=== PATIENT | male | born 1980 | race American Indian/Alaskan Native ===

== ENCOUNTER 2017-08-04 02:48 | Emergency (ER) | payer OTHER ==
[2017-08-04 04:23] LABS: Basophils % (Auto) 0.8 % (0.0-1.8); Eosinophils % (Auto) 5.6 % (0.0-4.3); Hemoglobin 15.1 gm/dl (11.8-15.2); Mean Corpuscular HGB Conc 34 % (32-34); Mean Corpuscular Hemoglobin 32 pg (28-32); Mean Corpuscular Volume 94 fl (84-94); Platelet Count 224 K/mm3 (140-440); Red Cell Distribution Width 14.3 % (13.2-15.2); White Blood Count 5.3 K/mm3 (4.5-11.0)
[2017-08-04 04:45] LABS: Anion Gap 15 mmol/L; BUN/Creatinine Ratio 18; Blood Urea Nitrogen 16 mg/dL (9-20); Calcium 8.9 mg/dL (8.4-10.2); Carbon Dioxide 27 mmol/L (22-30); Chloride 103.6 mmol/L (98-107); Glucose 111 mg/dL (75-100); Potassium 3.7 mmol/L (3.6-5.0); Sodium 142 mmol/L (137-145)
--- NOTE | 2017-08-04 05:45 | Cat Scan Report ---
FINAL REPORT EXAM: CT HEAD/BRAIN WO CON HISTORY: HEADACHE TECHNIQUE: Routine axial imaging was obtained of the brain without IV contrast. There are no previous studies available for comparison. FINDINGS: The ventricular system is appropriate in size and is symmetric. There is no evidence of acute stroke or hemorrhage. The basal cisterns appear normal. The visualized sinuses are clear. The mastoid air cells are well pneumatized IMPRESSION: Within normal limits.
[2017-08-04] MEDS ORDERED: CATAPRES PO ONE (10:17)
[2017-08-04] MEDS ORDERED: TORADOL IM ONE (10:26)
[2017-08-04] MEDS ORDERED: NORVASC PO ONE (11:17)
--- NOTE | 2017-08-04 11:20 | Emergency Department Report ---
ED Headache HPI - General Chief Complaint: Dizziness Stated Complaint: HTN Time Seen by Provider: 08/04/17 10:15 Source: patient, old records (no previous record) Exam Limitations: no limitations - History of Present Illness Initial Comments: 37-year-old male with a past medical history of hypertension presents to the hospital complaining of dizziness and headache 2 days. Patient complains of a frontal headache that is aching in nature. Pain is moderate in intensity without aggravating or alleviating factors. Positive nausea without vomiting, light sensitivity, focal weakness or numbness. Patient has not taken his blood pressure medication in 3 months because "he does not have a doctor "patient does however have insurance but states he doesn't know which doctors are in his network. I informed patient that he can call his insurance company for help to find a doctor. Patient complains of lightheadedness 2 days with the headache. He states he has been on amlodipine and the medication starts with a C in the past. Denies chest pain, shortness of breath, or abdominal pain. Allergies/Adverse Reactions: Allergies No Known Allergies Allergy (Unverified 08/04/17 03:52) Home Medications: Ambulatory Orders Ibuprofen [Motrin] 800 mg PO Q8HR PRN #30 tablet 08/04/17 amLODIPine mg PO DAILY 08/04/17 amLODIPine [Norvasc] 5 mg PO DAILY #30 tab 08/04/17 traMADol [Ultram 50 MG tab] 50 mg PO Q6HR PRN #20 tablet 08/04/17 ED Review of Systems ROS: Stated complaint: HTN Other details as noted in HPI Comment: All other systems reviewed and negative Other: Constitutional: No fevers chills Eyes: No eye pain visual changes ENT: No ear pain or throat pain Neck: Denies pain Respiratory: Denies cough wheezing shortness of breath Cardiovascular: Denies chest pain, palpitations, syncope GI: Denies abdominal pain, vomiting,. Patient reports 2 loose stools daily for the last 3 days : Denies dysuria Musculoskeletal: Denies back pain, joint swelling Skin: Denies rash, lesions, erythema Neurologic: Denies numbness, weakness Psychiatric: Denies suicidal ideation, hallucinations ED Past Medical Hx - Past Medical History Hx Hypertension: Yes - Surgical History Past Surgical History?: No - Social History Smoking Status: Current Every Day Smoker Substance Use Type: None - Medications Home Medications: Home Medications Medication Instructions Recorded Confirmed Last Taken Type Ibuprofen [Motrin] 800 mg PO Q8HR PRN #30 tablet 08/04/17 Unknown Rx amLODIPine mg PO DAILY 08/04/17 Unknown History amLODIPine [Norvasc] 5 mg PO DAILY #30 tab 08/04/17 Unknown Rx traMADol [Ultram 50 MG tab] 50 mg PO Q6HR PRN #20 tablet 08/04/17 Unknown Rx ED Physical Exam - General Limitations: No Limitations - Other Other exam information: General: No limitations, patient is alert in no acute distress Head exam: Atraumatic, normocephalic Eyes exam: Normal appearance, pupils equal reactive to light, extraocular movements intact ENT: Moist mucous membrane, normal oropharynx Neck exam: Normal inspection, full range of motion, no meningismus nontender Respiratory exam: Clear to auscultation bilateral, no wheezes, rales, crackles Cardiovascular: Normal rate and rhythm, normal heart sounds Abdomen: Soft, nondistended, and nontender, with normal bowel sounds, no rebound, or guarding Extremity: Full range of motion normal inspection no deformity Back: Normal Inspection, full range of motion, no tenderness Neurologic: Alert, oriented x3, cranial nerves intact, no motor or sensory deficit Psychiatric: normal affect, normal mood Skin: Warm, dry, intact ED Course Vital Signs 08/04/17 08/04/17 08/04/17 03:46 08:00 10:16 Temperature 98.2 F 98.4 F Pulse Rate 75 70 67 Respiratory 16 19 Rate Blood Pressure 160/108 162/105 147/110 Blood Pressure [Right] O2 Sat by Pulse 100 97 Oximetry 08/04/17 08/04/17 11:00 12:15 Temperature Pulse Rate 71 67 Respiratory 19 18 Rate Blood Pressure 136/97 Blood Pressure 142/97 [Right] O2 Sat by Pulse 92 99 Oximetry - Reevaluation(s) Reevaluation #1: 08/04/17 11:19 Prior to receiving clonidine patient's blood pressure improved. Norvasc ordered instead. Toradol order for pain. Patient was not orthostatic and therefore IV fluids not initiated Reevaluation #2: 08/04/17 12:25 Headache improved after Toradol. ED Medical Decision Making - Lab Data Result diagrams: 08/04/17 04:00 08/04/17 04:00 Lab Results 1208/04/17 08/04/17 Range/Units 04:00 04:00 10:32 WBC 5.3 (4.5-11.0) K/mm3 RBC 4.80 (3.65-5.03) M/mm3 Hgb 15.1 (11.8-15.2) gm/dl Hct 45.0 (35.5-45.6) % MCV 94 (84-94) fl MCH 32 (28-32) pg MCHC 34 (32-34) % RDW 14.3 (13.2-15.2) % Plt Count 224 (140-440) K/mm3 Lymph % (Auto) 27.7 (13.4-35.0) % [place] % (Auto) 10.1 H (0.0-7.3) % Eos % (Auto) 5.6 H (0.0-4.3) % Baso % (Auto) 0.8 (0.0-1.8) % Lymph # 1.5 (1.2-5.4) K/mm3 [place] # 0.5 (0.0-0.8) K/mm3 Eos # 0.3 (0.0-0.4) K/mm3 Baso # 0.0 (0.0-0.1) K/mm3 Seg Neutrophils % 55.8 (40.0-70.0) % Seg Neutrophils # 2.9 (1.8-7.7) K/mm3 Sodium 142 (137-145) mmol/L Potassium 3.7 (3.6-5.0) mmol/L Chloride 103.6 (98-107) mmol/L Carbon Dioxide 27 (22-30) mmol/L Anion Gap 15 mmol/L BUN 16 (9-20) mg/dL Creatinine 0.9 (0.8-1.5) mg/dL Estimated GFR > 60 ml/min BUN/Creatinine Ratio 18 % Glucose 111 H (75-100) mg/dL Calcium 8.9 (8.4-10.2) mg/dL Troponin T < 0.010 (0.00-0.029) ng/mL - EKG Data -: EKG Interpreted by Mi EKG shows normal: sinus rhythm, axis (40), QRS complexes (77), ST-T waves ( anterior lateral T-wave inversions, inferior T wave inversion) Rate: normal (65) - EKG Data When compared to previous EKG there are: previous EKG unavailable - Radiology Data Radiology results: report reviewed (ct head: unremarkable) - Medical Decision Making Patient does not have any chest pain or shortness of breath. Troponin was added given abnormal EKG and is negative. Patient's blood pressure improved in the ED without BP medication. Patient's CT head and lab work was unremarkable. Patient was encouraged to follow-up with her primary care doctor and options will be provided. I stressed the importance of taking blood pressure medication and follow up with primary care physician to determine if his medications need adjustment. Patient will also need outpatient cardiology follow-up regarding abnormal EKG however, does not appear to be an acute coronary syndrome at this time - Differential Diagnosis ICH, mass, hypertensive emergency/urgency, noncompliance, dehydration, anem Critical Care Time: No Critical care attestation.: If time is entered above; I have spent that time in minutes in the direct care of this critically ill patient, excluding procedure time. ED Disposition Clinical Impression: Uncontrolled hypersomnia, Noncompliance with medication regimen, Headache, Lightheaded, EKG abnormalities Disposition: DC- TO HOME OR SELFCARE Is pt being admited?: No Does the pt Need Aspirin: No Condition: Stable Instructions: Hypertension (ED), Acute Headache (ED) Additional Instructions: Take blood pressure medicine as prescribed and pain medication as needed. Follow-up with the clinic or doctor provided for further treatment of your high blood pressure and symptoms. Return if symptoms worsen as indicated by a discharge instructions. 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 Prescriptions: amLODIPine [Norvasc] 5 mg PO DAILY #30 tab Ibuprofen [Motrin] 800 mg PO Q8HR PRN #30 tablet PRN Reason: Pain traMADol [Ultram 50 MG tab] 50 mg PO Q6HR PRN #20 tablet PRN Reason: Pain Referrals: [facility] [Provider Group] - 3-5 Days ARNAUD BUTTERFIELD MD [Staff Physician] - 3-5 Days AMNA GRANT MD [Staff Physician] - 3-5 Days (Transit Operations Supervisor) Time of Disposition: 12:29
[2017-08-04 12:15] VITALS: BP 142/97
== END 2017-08-04 13:06 | disposition home or self-care (01) ==
LOC: ED 02:48
DX: G47.10 Hypersomnia, unspecified (principal); R42 Dizziness and giddiness; R94.31 Abnormal electrocardiogram [ECG] [EKG]; I10 Essential (primary) hypertension; F17.200 Nicotine dependence, unspecified, uncomplicated; Z91.14 Patient's other noncompliance with medication regimen
CPT/HCPCS: 36415; 70450; 80048; 84484; 85025; 93005; 93010; 96372; 99284; J1885

== ENCOUNTER 2018-06-16 17:58 | Inpatient (IN) | payer SELFPAY ==
[2018-06-16] MEDS ORDERED: DUONEB *Not for PRN Use IH ONE ×2 (18:14→20:48)
[2018-06-16 19:01] LABS: Platelet Count TNR K/mm3 (140-440)
[2018-06-16 19:04] LABS: Mean Corpuscular Volume TNR fl (84-94)
[2018-06-16 19:06] LABS: Hematocrit TNR % (35.5-45.6); Hemoglobin TNR gm/dl (11.8-15.2); Lymphocytes % (Auto) TNR % (13.4-35.0); Mean Corpuscular HGB Conc TNR % (32-34); Mean Corpuscular Hemoglobin TNR pg (28-32); Mean Platelet Volume TNR fl (6-12); Monocytes % (Auto) TNR % (0.0-7.3); Red Blood Count TNR M/mm3 (3.65-5.03); Red Cell Distribution Width TNR % (13.2-15.2)
[2018-06-16 19:07] LABS: Basophils # (Auto) TNR K/mm3 (0.0-0.1); Basophils % (Auto) TNR % (0.0-1.8); Eosinophils # (Auto) TNR K/mm3 (0.0-0.4); Eosinophils % (Auto) TNR % (0.0-4.3); Lymphocytes # (Auto) TNR K/mm3 (1.2-5.4); Monocytes # (Auto) TNR K/mm3 (0.0-0.8)
[2018-06-16 19:09] LABS: Total Cells Counted TNR
[2018-06-16 19:11] LABS: Band Neutrophils # (Manual) TNR K/mm3; Basophils % (Manual) TNR % (0.0-1.8); Eosinophils % (Manual) TNR % (0.0-4.3); Hypersegmented Neutrophils TNR; Hypersegmented Polys TNR; Monocytes % (Manual) TNR % (0.0-7.3); Myelocytes # (Manual) TNR K/mm3; Nucleated Red Blood Cells TNR % (0.0-0.9); Platelet Estimate TNR; Promyelocytes # (Manual) TNR K/mm3; Smudge Cells TNR
[2018-06-16 19:12] LABS: Acanthocytes TNR; Anisocytosis TNR; Basophilic Stippling TNR; Bite Cells TNR; Cabot Rings TNR; Dimorphic RBC TNR; Giant Platelets TNR; Helmet Cells TNR; Hgb C Crystals TNR; Howell-Jolly Bodies TNR; Hypochromasia TNR; Large Platelets TNR; Macrocytosis TNR; Ovalocytes TNR; Pappenheimer Bodies TNR; Platelet Clumps TNR; Platelet Morphology TNR; Platelet Satelitosis TNR; Poikilocytosis TNR; RBC Morphology TNR; Schistocytes TNR; Sickle Cells TNR; Spherocytes TNR; Stomatocytes TNR; Target Cells TNR; Tear Drop Cells TNR
[2018-06-16 19:13] LABS: Auer Rods TNR; Burr Cells TNR; Crenated RBC TNR; Dohle Bodies TNR; Rouleaux TNR; Toxic Granulation TNR; Toxic Vacuolation TNR
[2018-06-16 19:15] LABS: BUN/Creatinine Ratio 16; Blood Urea Nitrogen 14 mg/dL (9-20); Calcium 8.7 mg/dL (8.4-10.2); Hemolysis Index 10
[2018-06-16 19:34] LABS: Basophils % (Auto) 0.2 % (0.0-1.8); Hematocrit 39.2 % (35.5-45.6); Hemoglobin 13.6 gm/dl (11.8-15.2); Lymphocytes # (Auto) 0.9 K/mm3 (1.2-5.4); Lymphocytes % (Auto) 8.9 % (13.4-35.0); Mean Corpuscular HGB Conc 35 % (32-34); Mean Corpuscular Hemoglobin 33 pg (28-32); Mean Corpuscular Volume 96 fl (84-94); Monocytes # (Auto) 1.2 K/mm3 (0.0-0.8); Monocytes % (Auto) 11.3 % (0.0-7.3); Platelet Count 162 K/mm3 (140-440); Red Blood Count 4.08 M/mm3 (3.65-5.03); Red Cell Distribution Width 15.6 % (13.2-15.2)
--- NOTE | 2018-06-16 19:53 | XRay Report ---
FINAL REPORT EXAM: XR CHEST ROUTINE 2V HISTORY: Shortness of breath TECHNIQUE: Frontal and lateral views of the chest Comparison: None FINDINGS: There appear to be bilateral areas of patchy pulmonary consolidation. This is most marked in the left lung base. There is no evidence of pneumothorax or pleural fluid collection. The cardiac silhouette is enlarged. The thoracic aorta is tortuous. The bony structures are unremarkable. IMPRESSION: 1. Appearance of bilateral patchy areas of pulmonary consolidation that is most marked in the left lung base.. If further imaging is required, CT chest may be helpful. 2. Enlarged cardiac silhouette.
[2018-06-16] MEDS ORDERED: ASPIRIN PO ONE (20:32)
[2018-06-16] MEDS ORDERED: K-DUR PO ONE (20:32)
[2018-06-16] MEDS ORDERED: NITRO-BID 2% TP ONE (20:47)
[2018-06-16] MEDS ORDERED: SOLU-Medrol IV ONE (20:48)
--- NOTE | 2018-06-16 20:57 | Emergency Department Report ---
ED Shortness of Breath HPI - General Chief Complaint: Dyspnea/Respdistress Stated Complaint: CHEST PAIN/MAYTE Time Seen by Provider: 06/16/18 20:31 Source: patient, old records reviewed Mode of arrival: Ambulatory Limitations: No Limitations - History of Present Illness Initial Comments: 38-year-old male with a past medical history of hypertension presents to the hospital complaints of shortness of breath and cough 1 day. Patient states that cough is occasionally productive of blood-tinged sputum. He presented to the ED with wheezing and rhonchi with shortness of breath. Complains of pain to his right abdomen/flank and mild chest pain with coughing only. He denies edema, recent travel or sick contacts, recent incarceration, fever, or chills. Patient smokes Black and mild. He's been noncompliant with his blood pressure medication for 2-3 months because he is going "the natural route". He has never had a stress test. His father has CAD and 42-year-old brother is currently in the hospital for [place]. Patient did not receive a flu shot. Patient received a DuoNeb prior to my evaluation with improvement in shortness of breath and wheezing. - Related Data Home Medications Medication Instructions Recorded Confirmed Last Taken amLODIPine mg PO DAILY 08/04/17 Unknown Previous Rx's Medication Instructions Recorded Last Taken Type Ibuprofen [Motrin] 800 mg PO Q8HR PRN #30 tablet 08/04/17 Unknown Rx amLODIPine [Norvasc] 5 mg PO DAILY #30 tab 08/04/17 Unknown Rx traMADol [Ultram 50 MG tab] 50 mg PO Q6HR PRN #20 tablet 08/04/17 Unknown Rx Allergies Allergy/AdvReac Type Severity Reaction Status Date / Time No Known Allergies Allergy Verified 06/16/18 18:08 ED Review of Systems ROS: Stated complaint: CHEST PAIN/MAYTE Other details as noted in HPI Comment: All other systems reviewed and negative ED Past Medical Hx - Past Medical History Hx Hypertension: Yes - Social History Smoking Status: Current Every Day Smoker Substance Use Type: Alcohol - Medications Home Medications: Home Medications Medication Instructions Recorded Confirmed Last Taken Type Ibuprofen [Motrin] 800 mg PO Q8HR PRN #30 tablet 08/04/17 Unknown Rx amLODIPine mg PO DAILY 08/04/17 Unknown History amLODIPine [Norvasc] 5 mg PO DAILY #30 tab 12/09/17 Unknown Rx traMADol [Ultram 50 MG tab] 50 mg PO Q6HR PRN #20 tablet 08/04/17 Unknown Rx ED Physical Exam - General Limitations: No Limitations - Other Other exam information: General: No limitations, patient is alert in no acute distress Head exam: Atraumatic, normocephalic Eyes exam: Normal appearance ENT: Moist mucous membrane, normal oropharynx Neck exam: Normal inspection, full range of motion, no meningismus nontender Respiratory exam: Patient is lying supine and flat without any breathing difficulty. He has bilateral rhonchi with coarse wheeze. No accessory muscle use. No edema or calf tenderness. Chest wall nontender. Cardiovascular: Tachycardic regular rhythm Abdomen: Soft, nondistended, and nontender, with normal bowel sounds, no rebound, or guarding Extremity: Full range of motion normal inspection no deformity Back: Normal Inspection, full range of motion, no tenderness Neurologic: Alert, oriented x3, cranial nerves intact, no motor or sensory deficit Psychiatric: normal affect, normal mood Skin: Warm, dry, intact ED Course Vital Signs 06/16/18 06/16/18 06/16/18 18:08 18:25 18:48 Temperature 98 F Pulse Rate 109 H Pulse Rate [ 110 H 110 H Posterior Bilateral Throughout] Respiratory 24 Rate Respiratory 20 20 Rate [Posterior Bilateral Throughout] Blood Pressure 157/120 O2 Sat by Pulse 100 Oximetry 06/16/18 06/16/18 06/16/18 20:39 20:45 21:15 Temperature Pulse Rate 96 H 100 H 96 H Pulse Rate [ Posterior Bilateral Throughout] Respiratory 31 H 21 33 H Rate Respiratory Rate [Posterior Bilateral Throughout] Blood Pressure 155/115 155/115 O2 Sat by Pulse 92 92 91 Oximetry ED Medical Decision Making - Lab Data Result diagrams: 06/16/18 19:23 06/16/18 18:41 Lab Results 06/16/18 06/16/18 06/16/18 Range/Units 18:41 18:48 19:23 WBC TNR 10.3 RBC TNR 4.08 Hgb TNR 13.6 Hct TNR 39.2 MCV TNR 96 H MCH TNR 33 H MCHC TNR 35 H RDW TNR 15.6 H Plt Count TNR 162 Lymph % (Auto) TNR 8.9 L [place] % (Auto) TNR 11.3 H Eos % (Auto) TNR 0.0 Baso % (Auto) TNR 0.2 Lymph # TNR 0.9 L [place] # TNR 1.2 H Eos # TNR 0.0 Baso # TNR 0.0 Add Manual Diff TNR Total Counted TNR Seg Neutrophils % TNR 79.6 H Seg Neuts % (Manual) TNR Band Neutrophils % TNR Lymphocytes % (Manual) TNR Reactive Lymphs % (Man) TNR Monocytes % (Manual) TNR Eosinophils % (Manual) TNR Basophils % (Manual) TNR Metamyelocytes % TNR Myelocytes % TNR Promyelocytes % TNR Blast Cells % TNR Nucleated RBC % TNR Seg Neutrophils # TNR 8.2 H Seg Neutrophils # Man TNR Band Neutrophils # TNR Lymphocytes # (Manual) TNR Abs React Lymphs (Man) TNR Monocytes # (Manual) TNR Eosinophils # (Manual) TNR Basophils # (Manual) TNR Metamyelocytes # TNR Myelocytes # TNR Promyelocytes # TNR Blast Cells # TNR WBC Morphology TNR Hypersegmented Neuts TNR Hyposegmented Neuts TNR Hypogranular Neuts TNR Hypersegmented Polys TNR Smudge Cells TNR Toxic Granulation TNR Toxic Vacuolation TNR Dohle Bodies TNR Pelger-Huet Anomaly TNR Nadya Rods TNR Platelet Estimate TNR Clumped Platelets TNR Plt Clumps, EDTA TNR Large Platelets TNR Giant Platelets TNR Platelet Satelliting TNR Plt Morphology Comment TNR RBC Morphology TNR Dimorphic RBCs TNR Polychromasia TNR Hypochromasia TNR Poikilocytosis TNR Basophilic Stippling TNR Anisocytosis TNR Microcytosis TNR Macrocytosis TNR Spherocytes TNR Pappenheimer Bodies TNR Sickle Cells TNR Target Cells TNR Tear Drop Cells TNR Ovalocytes TNR Stomatocytes TNR Helmet Cells TNR Boyd-[place] Bodies TNR Reeds Rings TNR [place] Cells TNR Bite Cells TNR Crenated Cell TNR Elliptocytes TNR Acanthocytes (Spur) TNR Rouleaux TNR Hemoglobin C Crystals TNR Schistocytes TNR Malaria parasites TNR Louie Bodies TNR Hem Pathologist Commnt TNR VBG pH (7.320-7.420) Sodium 143 (137-145) mmol/L Potassium 3.3 L (3.6-5.0) mmol/L Chloride 102.8 (98-107) mmol/L Carbon Dioxide 29 (22-30) mmol/L Anion Gap 15 mmol/L BUN 14 (9-20) mg/dL Creatinine 0.9 (0.8-1.5) mg/dL Estimated GFR > 60 ml/min BUN/Creatinine Ratio 16 % Glucose 106 H (75-100) mg/dL Lactic Acid (0.7-2.0) mmol/L Calcium 8.7 (8.4-10.2) mg/dL Magnesium (1.7-2.3) mg/dL Troponin T 0.032 H (0.00-0.029) ng/mL NT-Pro-B Natriuret Pep (0-450) pg/mL Triglycerides 124 (2-149) mg/dL Cholesterol 175 (50-199) mg/dL LDL Cholesterol Direct 106 (50-130) mg/dL HDL Cholesterol 60 H (40-59) mg/dL Cholesterol/HDL Ratio 2.91 % 06/16/18 06/16/18 06/16/18 Range/Units 20:52 20:52 20:52 WBC RBC Hgb Hct MCV MCH MCHC RDW Plt Count Lymph % (Auto) [place] % (Auto) Eos % (Auto) Baso % (Auto) Lymph # [place] # Eos # Baso # Add Manual Diff Total Counted Seg Neutrophils % Seg Neuts % (Manual) Band Neutrophils % Lymphocytes % (Manual) Reactive Lymphs % (Man) Monocytes % (Manual) Eosinophils % (Manual) Basophils % (Manual) Metamyelocytes % Myelocytes % Promyelocytes % Blast Cells % Nucleated RBC % Seg Neutrophils # Seg Neutrophils # Man Band Neutrophils # Lymphocytes # (Manual) Abs React Lymphs (Man) Monocytes # (Manual) Eosinophils # (Manual) Basophils # (Manual) Metamyelocytes # Myelocytes # Promyelocytes # Blast Cells # WBC Morphology Hypersegmented Neuts Hyposegmented Neuts Hypogranular Neuts Hypersegmented Polys Smudge Cells Toxic Granulation Toxic Vacuolation Dohle Bodies Pelger-Huet Anomaly Nadya Rods Platelet Estimate Clumped Platelets Plt Clumps, EDTA Large Platelets Giant Platelets Platelet Satelliting Plt Morphology Comment RBC Morphology Dimorphic RBCs Polychromasia Hypochromasia Poikilocytosis Basophilic Stippling Anisocytosis Microcytosis Macrocytosis Spherocytes Pappenheimer Bodies Sickle Cells Target Cells Tear Drop Cells Ovalocytes Stomatocytes Helmet Cells Boyd-[place] Bodies Reeds Rings Yan Cells Bite Cells Crenated Cell Elliptocytes Acanthocytes (Spur) Rouleaux Hemoglobin C Crystals Schistocytes Malaria parasites Louie Bodies Hem Pathologist Commnt VBG pH 7.442 H (7.320-7.420) Sodium (137-145) mmol/L Potassium (3.6-5.0) mmol/L Chloride (98-107) mmol/L Carbon Dioxide (22-30) mmol/L Anion Gap mmol/L BUN (9-20) mg/dL Creatinine (0.8-1.5) mg/dL Estimated GFR ml/min BUN/Creatinine Ratio % Glucose (75-100) mg/dL Lactic Acid 1.60 (0.7-2.0) mmol/L Calcium (8.4-10.2) mg/dL Magnesium (1.7-2.3) mg/dL Troponin T (0.00-0.029) ng/mL NT-Pro-B Natriuret Pep 4643 H (0-450) pg/mL Triglycerides (2-149) mg/dL Cholesterol (50-199) mg/dL LDL Cholesterol Direct (50-130) mg/dL HDL Cholesterol (40-59) mg/dL Cholesterol/HDL Ratio % 06/16/18 06/16/18 Range/Units 20:52 21:01 WBC RBC Hgb Hct MCV MCH MCHC RDW Plt Count Lymph % (Auto) [place] % (Auto) Eos % (Auto) Baso % (Auto) Lymph # [place] # Eos # Baso # Add Manual Diff Total Counted Seg Neutrophils % Seg Neuts % (Manual) Band Neutrophils % Lymphocytes % (Manual) Reactive Lymphs % (Man) Monocytes % (Manual) Eosinophils % (Manual) Basophils % (Manual) Metamyelocytes % Myelocytes % Promyelocytes % Blast Cells % Nucleated RBC % Seg Neutrophils # Seg Neutrophils # Man Band Neutrophils # Lymphocytes # (Manual) Abs React Lymphs (Man) Monocytes # (Manual) Eosinophils # (Manual) Basophils # (Manual) Metamyelocytes # Myelocytes # Promyelocytes # Blast Cells # WBC Morphology Hypersegmented Neuts Hyposegmented Neuts Hypogranular Neuts Hypersegmented Polys Smudge Cells Toxic Granulation Toxic Vacuolation Dohle Bodies Pelger-Huet Anomaly Nadya Rods Platelet Estimate Clumped Platelets Plt Clumps, EDTA Large Platelets Giant Platelets Platelet Satelliting Plt Morphology Comment RBC Morphology Dimorphic RBCs Polychromasia Hypochromasia Poikilocytosis Basophilic Stippling Anisocytosis Microcytosis Macrocytosis Spherocytes Pappenheimer Bodies Sickle Cells Target Cells Tear Drop Cells Ovalocytes Stomatocytes Helmet Cells Boyd-[place] Bodies Reeds Rings [place] Cells Bite Cells Crenated Cell Elliptocytes Acanthocytes (Spur) Rouleaux Hemoglobin C Crystals Schistocytes Malaria parasites Louie Bodies Hem Pathologist Commnt VBG pH (7.320-7.420) Sodium (137-145) mmol/L Potassium (3.6-5.0) mmol/L Chloride (98-107) mmol/L Carbon Dioxide (22-30) mmol/L Anion Gap mmol/L BUN (9-20) mg/dL Creatinine (0.8-1.5) mg/dL Estimated GFR ml/min BUN/Creatinine Ratio % Glucose (75-100) mg/dL Lactic Acid (0.7-2.0) mmol/L Calcium (8.4-10.2) mg/dL Magnesium 1.90 (1.7-2.3) mg/dL Troponin T 0.027 (0.00-0.029) ng/mL NT-Pro-B Natriuret Pep (0-450) pg/mL Triglycerides (2-149) mg/dL Cholesterol (50-199) mg/dL LDL Cholesterol Direct (50-130) mg/dL HDL Cholesterol (40-59) mg/dL Cholesterol/HDL Ratio % - EKG Data -: EKG Interpreted by Me ([facility]) EKG shows normal: sinus rhythm, axis (qrs 61), QRS complexes (qrsd 71), ST-T waves (no stemi/t inv) Rate: tachycardia (112) - EKG Data When compared to previous EKG there are: changes noted (improved biphasic anterior t waves compared to 08/04/2017 ) - Medical Decision Making X-ray reveals bilateral infiltrates Rocephin and azithromycin and CPAP Patient improving with nebs. Additional bronchodilators and Solu-Medrol ordered Elevated troponin EKG actually improved biphasic anterior T waves compared to previous Patient does not describe ACS chest pain Troponin is slightly elevated in setting of normal creatinine Patient provided aspirin, nitroglycerin paste, and repeat troponin pending Hypokalemia PO potassium provided - Differential Diagnosis pneumonia, bronchitis, viral, CHF Critical care attestation.: If time is entered above; I have spent that time in minutes in the direct care of this critically ill patient, excluding procedure time. ED Disposition Clinical Impression: Pneumonia, Hypokalemia, Elevated troponin, Wheezing, HTN (hypertension), Noncompliance with medication regimen Disposition: OP ADMIT IP TO THIS HOSP Is pt being admited?: Yes Does the pt Need Aspirin: Yes Condition: Stable Time of Disposition: 21:52 (Dr Zacarias/hosp)
[2018-06-16 21:14] LABS: LDL Cholesterol,Direct 106 mg/dL (50-130)
[2018-06-16 21:34] LABS: Chol/HDL Ratio 2.91 %; HDL Cholesterol 60 mg/dL (40-59)
[2018-06-16] MEDS ORDERED: ROCEPHIN/NS 1 GM/50 ML 1 GM/50 ML BAG IV ONE (21:38)
[2018-06-16] MEDS ORDERED: ZITHROMAX 500 MG in NACL 0.9% 250ML 250 ML IV ONE (21:38)
[2018-06-16] MEDS ORDERED: SODIUM CHLORIDE FLUSH SYRINGE 10 ML IV PRN ×3 (22:42→23:02)
[2018-06-16] MEDS ORDERED: TYLENOL PO PRN (22:42)
[2018-06-16] MEDS ORDERED: ZOFRAN IV PRN (22:42)
[2018-06-16] MEDS ORDERED: NACL 0.9% 1000 ML 1,000 ML IV SCH (23:00)
[2018-06-16] MEDS ORDERED: APRESOLINE IV PRN (23:02)
--- NOTE | 2018-06-16 23:15 | History and Physical Report ---
<LENA NOBLE - Last Filed: 06/17/18 00:23> History of Present Illness Date of examination: 06/16/18 Date of admission: 06/16/18 Chief complaint: sob, chest pain History of present illness: Pt is 38 y/o male with PMHx of hypertension who presents to the ER with c/o SOB , frequent cough and chest pain with coughing x1 day. Patient states that the cough started when he woke up this morning, it is a frequent cough causing chest pain and occasionally productive of blood-tinged sputum. Pt admits to wheezing and SOB on exertion for a week, he states that he took some cough medicine OCT with little relieve. Pt states that he decided to come to the ER because the cough became persistent. Pt states that the chest pain is mostly when he coughs, he denies personal history of heart disease but reports an extensive family history of heart dz, his father had heart dz and his 42-year brother is currently hospitalized with an CA. Pt states that he has a known history of HTN and he only used natural medicine for his BP control. In the ER, his BP was 157/120, his EKG shows ST with biatrial enlargement, LVH, and his chest XRay shows bilateral patchy consolidation. Pt was started an IV antibiotic and admitted to the hospital for further evaluation and treatment. Past History Past Medical History: hypertension, other (obesity) Social history: smoking (1ppd), alcohol abuse (freqent ETOH use) Medications and Allergies Allergies Allergy/AdvReac Type Severity Reaction Status Date / Time No Known Allergies Allergy Verified 06/16/18 18:08 Home Medications Medication Instructions Recorded Confirmed Last Taken Type Ibuprofen [Motrin] 800 mg PO Q8HR PRN #30 tablet 08/04/17 Unknown Rx amLODIPine mg PO DAILY 08/04/17 Unknown History amLODIPine [Norvasc] 5 mg PO DAILY #30 tab 08/04/17 Unknown Rx traMADol [Ultram 50 MG tab] 50 mg PO Q6HR PRN #20 tablet 08/04/17 Unknown Rx Active Meds: Active Medications Acetaminophen (Tylenol) 650 mg PO Q4H PRN PRN Reason: Pain MILD(1-3)/Fever >100.5/YU Albuterol (Proventil) 2.5 mg IH Q4HRT PRN PRN Reason: Shortness Of Breath Enoxaparin Sodium (Lovenox) 40 mg SUB-Q QDAY AMRITA Sodium Chloride (Nacl 0.9% 1000 Ml) 1,000 mls @ 75 mls/hr IV DIRECT AMRITA Azithromycin 500 mg/ Sodium (Chloride) 250 mls @ 250 mls/hr IV Q24HR AMRITA; Protocol Ceftriaxone Sodium (Rocephin/Ns 1 Gm/50 Ml) 1 gm in 50 mls @ 100 mls/hr IV Q24HR AMRITA; Protocol Ondansetron HCl (Zofran) 4 mg IV Q8H PRN PRN Reason: Nausea And Vomiting Sodium Chloride (Sodium Chloride Flush Syringe 10 Ml) 10 ml IV BID AMRITA Sodium Chloride (Sodium Chloride Flush Syringe 10 Ml) 10 ml IV PRN PRN PRN Reason: LINE FLUSH Review of Systems Cardiovascular: chest pain Respiratory: cough with sputum, shortness of breath, congestion Exam - Constitutional Vitals: Temp Pulse Resp BP Pulse Ox 98 F 96 H 33 H 155/115 91 06/16/18 18:08 06/16/18 21:15 06/16/18 21:15 06/16/18 21:15 06/16/18 21:15 General appearance: Present: no acute distress - EENT Eyes: Present: EOM intact ENT: hearing intact - Neck Neck: Present: normal ROM - Cardiovascular Rhythm: regular (tachy) - Extremities Extremities: No edema Peripheral Pulses: within normal limits - Abdominal General gastrointestinal: Present: non-tender, non-distended, normal bowel sounds Male genitourinary: Present: deferred - Rectal Rectal Exam: deferred - Integumentary Integumentary: Present: warm, dry - Musculoskeletal Musculoskeletal: strength equal bilaterally - Psychiatric Psychiatric: cooperative - Neurologic Neurologic: moves all extremities Results - Labs CBC & Chem 7: 06/16/18 23:37 06/16/18 23:37 Labs: Laboratory Last Values WBC 10.3 K/mm3 (4.5-11.0) 06/16/18 19:23 RBC 4.08 M/mm3 (3.65-5.03) 06/16/18 19:23 Hgb 13.6 gm/dl (11.8-15.2) 06/16/18 19:23 Hct 39.2 % (35.5-45.6) 06/16/18 19:23 MCV 96 fl (84-94) H 06/16/18 19:23 MCH 33 pg (28-32) H 06/16/18 19:23 MCHC 35 % (32-34) H 06/16/18 19:23 RDW 15.6 % (13.2-15.2) H 06/16/18 19:23 Plt Count 162 K/mm3 (140-440) 06/16/18 19:23 Lymph % (Auto) 8.9 % (13.4-35.0) L 06/16/18 19:23 [place] % (Auto) 11.3 % (0.0-7.3) H 06/16/18 19:23 Eos % (Auto) 0.0 % (0.0-4.3) 06/16/18 19:23 Baso % (Auto) 0.2 % (0.0-1.8) 06/16/18 19:23 Lymph # 0.9 K/mm3 (1.2-5.4) L 06/16/18 19:23 [place] # 1.2 K/mm3 (0.0-0.8) H 06/16/18 19:23 Eos # 0.0 K/mm3 (0.0-0.4) 06/16/18 19:23 Baso # 0.0 K/mm3 (0.0-0.1) 06/16/18 19:23 Add Manual Diff TNR 06/16/18 18:48 Total Counted TNR 06/16/18 18:48 Seg Neutrophils % 79.6 % (40.0-70.0) H 06/16/18 19:23 Seg Neuts % (Manual) TNR 06/16/18 18:48 Band Neutrophils % TNR 06/16/18 18:48 Lymphocytes % (Manual) TNR 06/16/18 18:48 Reactive Lymphs % (Man) TNR 06/16/18 18:48 Monocytes % (Manual) TNR 06/16/18 18:48 Eosinophils % (Manual) TNR 06/16/18 18:48 Basophils % (Manual) TNR 06/16/18 18:48 Metamyelocytes % TNR 06/16/18 18:48 Myelocytes % TNR 06/16/18 18:48 Promyelocytes % TNR 06/16/18 18:48 Blast Cells % TNR 06/16/18 18:48 Nucleated RBC % TNR 06/16/18 18:48 Seg Neutrophils # 8.2 K/mm3 (1.8-7.7) H 06/16/18 19:23 Seg Neutrophils # Man TNR 06/16/18 18:48 Band Neutrophils # TNR 06/16/18 18:48 Lymphocytes # (Manual) TNR 06/16/18 18:48 Abs React Lymphs (Man) TNR 06/16/18 18:48 Monocytes # (Manual) TNR 06/16/18 18:48 Eosinophils # (Manual) TNR 06/16/18 18:48 Basophils # (Manual) TNR 06/16/18 18:48 Metamyelocytes # TNR 06/16/18 18:48 Myelocytes # TNR 06/16/18 18:48 Promyelocytes # TNR 06/16/18 18:48 Blast Cells # TNR 06/16/18 18:48 WBC Morphology TNR 06/16/18 18:48 Hypersegmented Neuts TNR 06/16/18 18:48 Hyposegmented Neuts TNR 06/16/18 18:48 Hypogranular Neuts TNR 06/16/18 18:48 Hypersegmented Polys TNR 06/16/18 18:48 Smudge Cells TNR 06/16/18 18:48 Toxic Granulation TNR 06/16/18 18:48 Toxic Vacuolation TNR 06/16/18 18:48 Dohle Bodies TNR 06/16/18 18:48 Pelger-Huet Anomaly TNR 06/16/18 18:48 Nadya Rods TNR 06/16/18 18:48 Platelet Estimate TNR 06/16/18 18:48 Clumped Platelets TNR 06/16/18 18:48 Plt Clumps, EDTA TNR 06/16/18 18:48 Large Platelets TNR 06/16/18 18:48 Giant Platelets TNR 06/16/18 18:48 Platelet Satelliting TNR 06/16/18 18:48 Plt Morphology Comment TNR 06/16/18 18:48 RBC Morphology TNR 06/16/18 18:48 Dimorphic RBCs TNR 06/16/18 18:48 Polychromasia TNR 06/16/18 18:48 Hypochromasia TNR 06/16/18 18:48 Poikilocytosis TNR 06/16/18 18:48 Basophilic Stippling TNR 06/16/18 18:48 Anisocytosis TNR 06/16/18 18:48 Microcytosis TNR 06/16/18 18:48 Macrocytosis TNR 06/16/18 18:48 Spherocytes TNR 06/16/18 18:48 Pappenheimer Bodies TNR 06/16/18 18:48 Sickle Cells TNR 06/16/18 18:48 Target Cells TNR 06/16/18 18:48 Tear Drop Cells TNR 06/16/18 18:48 Ovalocytes TNR 06/16/18 18:48 Stomatocytes TNR 06/16/18 18:48 Helmet Cells TNR 06/16/18 18:48 [place] Bodies TNR 06/16/18 18:48 [place] Rings TNR 06/16/18 18:48 [place] Cells TNR 06/16/18 18:48 Bite Cells TNR 06/16/18 18:48 Crenated Cell TNR 06/16/18 18:48 Elliptocytes TNR 06/16/18 18:48 Acanthocytes (Spur) TNR 06/16/18 18:48 Rouleaux TNR 06/16/18 18:48 Hemoglobin C Crystals TNR 06/16/18 18:48 Schistocytes TNR 06/16/18 18:48 Malaria parasites TNR 06/16/18 18:48 Louie Bodies TNR 06/16/18 18:48 Hem Pathologist Commnt TNR 06/16/18 18:48 VBG pH 7.442 (7.320-7.420) H 06/16/18 20:52 Sodium 143 mmol/L (137-145) 06/16/18 18:41 Potassium 3.3 mmol/L (3.6-5.0) L 06/16/18 18:41 Chloride 102.8 mmol/L (98-107) 06/16/18 18:41 Carbon Dioxide 29 mmol/L (22-30) 06/16/18 18:41 Anion Gap 15 mmol/L 06/16/18 18:41 BUN 14 mg/dL (9-20) 06/16/18 18:41 Creatinine 0.9 mg/dL (0.8-1.5) 06/16/18 18:41 Estimated GFR > 60 ml/min 06/16/18 18:41 BUN/Creatinine Ratio 16 % 06/16/18 18:41 Glucose 106 mg/dL (75-100) H 06/16/18 18:41 Lactic Acid 1.60 mmol/L (0.7-2.0) 06/16/18 20:52 Calcium 8.7 mg/dL (8.4-10.2) 06/16/18 18:41 Magnesium 1.90 mg/dL (1.7-2.3) 06/16/18 21:01 Troponin T 0.027 ng/mL (0.00-0.029) 06/16/18 20:52 NT-Pro-B Natriuret Pep 4643 pg/mL (0-450) H 06/16/18 20:52 Triglycerides 124 mg/dL (2-149) 06/16/18 18:41 Cholesterol 175 mg/dL (50-199) 06/16/18 18:41 LDL Cholesterol Direct 106 mg/dL (50-130) 06/16/18 18:41 HDL Cholesterol 60 mg/dL (40-59) H 06/16/18 18:41 Cholesterol/HDL Ratio 2.91 % 06/16/18 18:41 Assessment and Plan Assessment and plan: 1. Acute CAP 2. Acute dyspnea (likely due to PNE) 3. Chest pain (pleuritic vr cardiac) 4. Elevated troponin r/o cardiac ischemia 5. Uncontrolled HTN 6. LVH (likely due to long standing HTN) 7. Hypokelimia 8. Elevate BNP (4643) Plan Admit to [facility] for Pneumonia and CP Monitor VS and elevated temp Start Ceftriaxone and Azithromycin for PNE Nebs tx PRN for dyspnea O2 to keep sat >92% Continue Serial troponin to r/o CA Stress test in am Replace potassium Hydrolyzing PRN for BP control HCTZ daily for BP control Advance Directives: Yes VTE prophylaxis?: Chemical Plan of care discussed with patient/family: Yes <ROSINA BOYD - Last Filed: 06/17/18 05:03> History of Present Illness Date of admission: 06/16/18 22:42 Medications and Allergies Active Meds: Active Medications Acetaminophen (Tylenol) 650 mg PO Q4H PRN PRN Reason: Pain MILD(1-3)/Fever >100.5/YU Albuterol (Proventil) 2.5 mg IH Q4HRT PRN PRN Reason: Shortness Of Breath Last Admin: 06/17/18 00:12 Dose: 2.5 mg Enoxaparin Sodium (Lovenox) 40 mg SUB-Q QDAY AMRITA Hydralazine HCl (Apresoline) 5 mg IV Q6H PRN PRN Reason: FOR SBP > target Last Admin: 06/17/18 01:25 Dose: 5 mg Sodium Chloride (Nacl 0.9% 1000 Ml) 1,000 mls @ 75 mls/hr IV DIRECT AMRITA Last Admin: 06/17/18 00:46 Dose: 75 mls/hr Azithromycin 500 mg/ Sodium (Chloride) 250 mls @ 250 mls/hr IV Q24HR AMRITA; Protocol Ceftriaxone Sodium (Rocephin/Ns 1 Gm/50 Ml) 1 gm in 50 mls @ 100 mls/hr IV Q24HR AMRITA; Protocol Ondansetron HCl (Zofran) 4 mg IV Q8H PRN PRN Reason: Nausea And Vomiting Pneumococcal Polyvalent Vaccine (Pneumovax 23) 0.5 ml IM .ONCE ONE Stop: 06/17/18 12:01 Sodium Chloride (Sodium Chloride Flush Syringe 10 Ml) 10 ml IV BID AMRITA Sodium Chloride (Sodium Chloride Flush Syringe 10 Ml) 10 ml IV PRN PRN PRN Reason: LINE FLUSH Exam - Constitutional Vitals: Temp Pulse Resp BP Pulse Ox 97.8 F 118 H 17 167/113 93 06/17/18 01:10 06/17/18 01:10 06/17/18 01:10 06/17/18 01:25 06/17/18 01:10 Results - Labs CBC & Chem 7: 06/16/18 23:37 06/16/18 23:37 Labs: Laboratory Last Values WBC 13.2 K/mm3 (4.5-11.0) H 06/16/18 23:37 RBC 4.77 M/mm3 (3.65-5.03) 06/16/18 23:37 Hgb 15.4 gm/dl (11.8-15.2) H 06/16/18 23:37 Hct 46.5 % (35.5-45.6) H 06/16/18 23:37 MCV 97 fl (84-94) H 06/16/18 23:37 MCH 32 pg (28-32) 06/16/18 23:37 MCHC 33 % (32-34) 06/16/18 23:37 RDW 15.8 % (13.2-15.2) H 06/16/18 23:37 Plt Count 191 K/mm3 (140-440) 06/16/18 23:37 Lymph % (Auto) 9.1 % (13.4-35.0) L 06/16/18 23:37 [place] % (Auto) 10.5 % (0.0-7.3) H 06/16/18 23:37 Eos % (Auto) 0.0 % (0.0-4.3) 06/16/18 23:37 Baso % (Auto) 0.4 % (0.0-1.8) 06/16/18 23:37 Lymph # 1.2 K/mm3 (1.2-5.4) 06/16/18 23:37 [place] # 1.4 K/mm3 (0.0-0.8) H 06/16/18 23:37 Eos # 0.0 K/mm3 (0.0-0.4) 06/16/18 23:37 Baso # 0.1 K/mm3 (0.0-0.1) 06/16/18 23:37 Add Manual Diff TNR 06/16/18 18:48 Total Counted TNR 06/16/18 18:48 Seg Neutrophils % 80.0 % (40.0-70.0) H 06/16/18 23:37 Seg Neuts % (Manual) TNR 06/16/18 18:48 Band Neutrophils % TNR 06/16/18 18:48 Lymphocytes % (Manual) TNR 06/16/18 18:48 Reactive Lymphs % (Man) TNR 06/16/18 18:48 Monocytes % (Manual) TNR 06/16/18 18:48 Eosinophils % (Manual) TNR 06/16/18 18:48 Basophils % (Manual) TNR 06/16/18 18:48 Metamyelocytes % TNR 06/16/18 18:48 Myelocytes % TNR 06/16/18 18:48 Promyelocytes % TNR 06/16/18 18:48 Blast Cells % TNR 06/16/18 18:48 Nucleated RBC % TNR 06/16/18 18:48 Seg Neutrophils # 10.6 K/mm3 (1.8-7.7) H 06/16/18 23:37 Seg Neutrophils # Man TNR 06/16/18 18:48 Band Neutrophils # TNR 06/16/18 18:48 Lymphocytes # (Manual) TNR 06/16/18 18:48 Abs React Lymphs (Man) TNR 06/16/18 18:48 Monocytes # (Manual) TNR 06/16/18 18:48 Eosinophils # (Manual) TNR 06/16/18 18:48 Basophils # (Manual) TNR 06/16/18 18:48 Metamyelocytes # TNR 06/16/18 18:48 Myelocytes # TNR 06/16/18 18:48 Promyelocytes # TNR 06/16/18 18:48 Blast Cells # TNR 06/16/18 18:48 WBC Morphology TNR 06/16/18 18:48 Hypersegmented Neuts TNR 06/16/18 18:48 Hyposegmented Neuts TNR 06/16/18 18:48 Hypogranular Neuts TNR 06/16/18 18:48 Hypersegmented Polys TNR 06/16/18 18:48 Smudge Cells TNR 06/16/18 18:48 Toxic Granulation TNR 06/16/18 18:48 Toxic Vacuolation TNR 06/16/18 18:48 Dohle Bodies TNR 06/16/18 18:48 Pelger-Huet Anomaly TNR 06/16/18 18:48 Nadya Rods TNR 06/16/18 18:48 Platelet Estimate TNR 06/16/18 18:48 Clumped Platelets TNR 06/16/18 18:48 Plt Clumps, EDTA TNR 06/16/18 18:48 Large Platelets TNR 06/16/18 18:48 Giant Platelets TNR 06/16/18 18:48 Platelet Satelliting TNR 06/16/18 18:48 Plt Morphology Comment TNR 06/16/18 18:48 RBC Morphology TNR 06/16/18 18:48 Dimorphic RBCs TNR 06/16/18 18:48 Polychromasia TNR 06/16/18 18:48 Hypochromasia TNR 06/16/18 18:48 Poikilocytosis TNR 06/16/18 18:48 Basophilic Stippling TNR 06/16/18 18:48 Anisocytosis TNR 06/16/18 18:48 Microcytosis TNR 06/16/18 18:48 Macrocytosis TNR 06/16/18 18:48 Spherocytes TNR 06/16/18 18:48 Pappenheimer Bodies TNR 06/16/18 18:48 Sickle Cells TNR 06/16/18 18:48 Target Cells TNR 06/16/18 18:48 Tear Drop Cells TNR 06/16/18 18:48 Ovalocytes TNR 06/16/18 18:48 Stomatocytes TNR 06/16/18 18:48 Helmet Cells TNR 06/16/18 18:48 [place] Bodies TNR 06/16/18 18:48 [place] Rings TNR 06/16/18 18:48 [place] Cells TNR 06/16/18 18:48 Bite Cells TNR 06/16/18 18:48 Crenated Cell TNR 06/16/18 18:48 Elliptocytes TNR 06/16/18 18:48 Acanthocytes (Spur) TNR 06/16/18 18:48 Rouleaux TNR 06/16/18 18:48 Hemoglobin C Crystals TNR 06/16/18 18:48 Schistocytes TNR 06/16/18 18:48 Malaria parasites TNR 06/16/18 18:48 Louie Bodies TNR 06/16/18 18:48 Hem Pathologist Commnt TNR 06/16/18 18:48 VBG pH 7.442 (7.320-7.420) H 06/16/18 20:52 Sodium 144 mmol/L (137-145) 06/16/18 23:37 Potassium 3.0 mmol/L (3.6-5.0) L 06/16/18 23:37 Chloride 102.3 mmol/L (98-107) 06/16/18 23:37 Carbon Dioxide 28 mmol/L (22-30) 06/16/18 23:37 Anion Gap 17 mmol/L 06/16/18 23:37 BUN 11 mg/dL (9-20) 06/16/18 23:37 Creatinine 0.8 mg/dL (0.8-1.5) 06/16/18 23:37 Estimated GFR > 60 ml/min 06/16/18 23:37 BUN/Creatinine Ratio 14 % 06/16/18 23:37 Glucose 110 mg/dL (75-100) H 06/16/18 23:37 Lactic Acid 1.60 mmol/L (0.7-2.0) 06/16/18 20:52 Calcium 8.7 mg/dL (8.4-10.2) 06/16/18 23:37 Magnesium 1.90 mg/dL (1.7-2.3) 06/16/18 21:01 Total Creatine Kinase 415 units/L (55-170) H 06/16/18 23:37 CK-MB (CK-2) 10.1 ng/mL (0.0-4.0) H 06/16/18 23:37 CK-MB (CK-2) Rel Index 2.4 (0-4) 06/16/18 23:37 Troponin T 0.031 ng/mL (0.00-0.029) H 06/17/18 00:23 NT-Pro-B Natriuret Pep 4643 pg/mL (0-450) H 06/16/18 20:52 Triglycerides 124 mg/dL (2-149) 06/16/18 18:41 Cholesterol 175 mg/dL (50-199) 06/16/18 18:41 LDL Cholesterol Direct 106 mg/dL (50-130) 06/16/18 18:41 HDL Cholesterol 60 mg/dL (40-59) H 06/16/18 18:41 Cholesterol/HDL Ratio 2.91 % 06/16/18 18:41 Urine Color Straw (Yellow) 06/16/18 23:30 Urine Turbidity Clear (Clear) 06/16/18 23:30 Urine pH 7.0 (5.0-7.0) 06/16/18 23:30 Ur Specific [place] 1.008 (1.003-1.030) 06/16/18 23:30 Urine Protein 30 mg/dl mg/dL (Negative) 06/16/18 23:30 Urine Glucose (UA) Neg mg/dL (Negative) 06/16/18 23:30 Urine Ketones Neg mg/dL (Negative) 06/16/18 23:30 Urine Blood Sm (Negative) 06/16/18 23:30 Urine Nitrite Neg (Negative) 06/16/18 23:30 Urine Bilirubin Neg (Negative) 06/16/18 23:30 Urine Urobilinogen < 2.0 mg/dL (<2.0) 06/16/18 23:30 Ur Leukocyte Esterase Neg (Negative) 06/16/18 23:30 Urine WBC (Auto) < 1.0 /HPF (0.0-6.0) 06/16/18 23:30 Urine RBC (Auto) 1.0 /HPF (0.0-6.0) 06/16/18 23:30 Urine Mucus Few /HPF 06/16/18 23:30 Assessment and Plan Assessment and plan: Patient seen and examined with practitioner. Agree with the plan was discussed with except, discontinue stress tests and consult cardiology,His troponin is trending up. Patient has a history of noncompliance, start norvasc instead of ACEI/hydrochlorothiazide
[2018-06-16 23:33] LABS: Basophils # (Auto) 0.1 K/mm3 (0.0-0.1); Basophils % (Auto) 0.5 % (0.0-1.8); Eosinophils # (Auto) 0.1 K/mm3 (0.0-0.4); Eosinophils % (Auto) 0.5 % (0.0-4.3); Hematocrit 45.8 % (35.5-45.6); Hemoglobin 15.3 gm/dl (11.8-15.2); Lymphocytes # (Auto) 1.2 K/mm3 (1.2-5.4); Lymphocytes % (Auto) 8.4 % (13.4-35.0); Mean Corpuscular HGB Conc 33 % (32-34); Mean Corpuscular Hemoglobin 32 pg (28-32); Mean Corpuscular Volume 97 fl (84-94); Monocytes # (Auto) 1.4 K/mm3 (0.0-0.8); Monocytes % (Auto) 9.9 % (0.0-7.3); Platelet Count 186 K/mm3 (140-440); Red Blood Count 4.73 M/mm3 (3.65-5.03); Red Cell Distribution Width 15.8 % (13.2-15.2)
[2018-06-16 23:54] LABS: Basophils # (Auto) 0.1 K/mm3 (0.0-0.1); Basophils % (Auto) 0.4 % (0.0-1.8); Hematocrit 46.5 % (35.5-45.6); Hemoglobin 15.4 gm/dl (11.8-15.2); Lymphocytes # (Auto) 1.2 K/mm3 (1.2-5.4); Lymphocytes % (Auto) 9.1 % (13.4-35.0); Mean Corpuscular HGB Conc 33 % (32-34); Mean Corpuscular Hemoglobin 32 pg (28-32); Mean Corpuscular Volume 97 fl (84-94); Monocytes # (Auto) 1.4 K/mm3 (0.0-0.8); Monocytes % (Auto) 10.5 % (0.0-7.3); Platelet Count 191 K/mm3 (140-440); Red Blood Count 4.77 M/mm3 (3.65-5.03); Red Cell Distribution Width 15.8 % (13.2-15.2)
[2018-06-17 00:07] LABS: Bilirubin,Urine NEG (Negative); Blood,Urine SM (Negative); Color,Urine Straw (Yellow); Mucus,Urine FEW /HPF; Urobilinogen,Urine < 2.0 mg/dL (<2.0); WBC,Urine < 1.0 /HPF (0.0-6.0)
[2018-06-17 00:07] LABS: BUN/Creatinine Ratio 15; Blood Urea Nitrogen 12 mg/dL (9-20); Calcium 8.7 mg/dL (8.4-10.2); Hemolysis Index 21
[2018-06-17] MEDS: PROVENTIL IH PRN ×2 (00:12→21:39)
[2018-06-17 00:13] LABS: BUN/Creatinine Ratio 14; Blood Urea Nitrogen 11 mg/dL (9-20); Calcium 8.7 mg/dL (8.4-10.2); Hemolysis Index 7
[2018-06-17] MEDS ORDERED: K-DUR PO ONE (00:25)
[2018-06-17] MEDS ORDERED: SOLU-Medrol ONE (00:44)
[2018-06-17 01:00] LABS: Creatine Kinase MB 10.1 ng/mL (0.0-4.0)
[2018-06-17] MEDS: APRESOLINE IV PRN ×4 (01:25→20:44)
[2018-06-17 07:04] LABS: Hematocrit 46.9 % (35.5-45.6); Hemoglobin 15.5 gm/dl (11.8-15.2); Mean Corpuscular HGB Conc 33 % (32-34); Mean Corpuscular Hemoglobin 32 pg (28-32); Mean Corpuscular Volume 98 fl (84-94); Red Cell Distribution Width 16.3 % (13.2-15.2)
[2018-06-17 07:06] LABS: Creatine Kinase MB 8.2 ng/mL (0.0-4.0)
[2018-06-17 07:08] LABS: BUN/Creatinine Ratio 14; Blood Urea Nitrogen 11 mg/dL (9-20); Calcium 8.7 mg/dL (8.4-10.2); Hemolysis Index 85
[2018-06-17 08:30] LABS: Basophils % (Manual) 0 % (0.0-1.8); Eosinophils % (Manual) 0 % (0.0-4.3); Large Platelets Few; Total Cells Counted 100
[2018-06-17 08:31] LABS: Platelet Clumps Few; Platelet Estimate Consistent w Auto
[2018-06-17 08:46] LABS: Platelet Count 144 K/mm3 (140-440)
[2018-06-17] MEDS: LOVENOX SUB-Q SCH (09:26)
[2018-06-17] MEDS ORDERED: HCTZ PO SCH (10:00)
[2018-06-17] MEDS ORDERED: ZESTRIL PO SCH (10:00)
--- NOTE | 2018-06-17 11:19 | Consultation ---
History of Present Illness Consult date: 06/17/18 Requesting physician: ROSINA BOYD Consult reason: chest pain History of present illness: The pt is a 38 YO male with a past medical history significant for HTN, tobacco use, daily ETOH use, obesity. He is previously unknown to our practice. He presented with complaints of progressively worsening SOB, productive cough, and pleuritic chest pain for 1 week prior to arrival. He describes his chest pain as a right sided sharp pain which is only present when coughing or taking a deep breath. He reports a h/o HTN since he was 18 years old, however, he has not been regularly seeing a PCP or taking anti-hypertensive medications because he has been using "natural remedies" (Sugey) to treat his HTN. CXR is concerning for PNA. Past History Past Medical History: hypertension, other (obesity) Past Surgical History: hernia repair Social history: Lives alone, smoking (1ppd), alcohol abuse (freqent ETOH use). denies: prescription drug abuse Medications and Allergies Allergies Allergy/AdvReac Type Severity Reaction Status Date / Time No Known Allergies Allergy Verified 06/16/18 18:08 Home Medications Medication Instructions Recorded Confirmed Last Taken Type Ibuprofen [Motrin] 800 mg PO Q8HR PRN #30 tablet 08/04/17 Unknown Rx amLODIPine mg PO DAILY 08/04/17 Unknown History amLODIPine [Norvasc] 5 mg PO DAILY #30 tab 08/04/17 Unknown Rx traMADol [Ultram 50 MG tab] 50 mg PO Q6HR PRN #20 tablet 08/04/17 Unknown Rx Active Meds: Active Medications Acetaminophen (Tylenol) 650 mg PO Q4H PRN PRN Reason: Pain MILD(1-3)/Fever >100.5/YU Albuterol (Proventil) 2.5 mg IH Q4HRT PRN PRN Reason: Shortness Of Breath Last Admin: 06/17/18 00:12 Dose: 2.5 mg Enoxaparin Sodium (Lovenox) 40 mg SUB-Q QDAY AMRITA Last Admin: 06/17/18 09:26 Dose: 40 mg Hydralazine HCl (Apresoline) 5 mg IV Q6H PRN PRN Reason: FOR SBP > target Last Admin: 06/17/18 09:26 Dose: 5 mg Sodium Chloride (Nacl 0.9% 1000 Ml) 1,000 mls @ 75 mls/hr IV DIRECT AMRITA Last Admin: 06/17/18 00:46 Dose: 75 mls/hr Azithromycin 500 mg/ Sodium (Chloride) 250 mls @ 250 mls/hr IV Q24HR AMRITA; Protocol Ceftriaxone Sodium (Rocephin/Ns 1 Gm/50 Ml) 1 gm in 50 mls @ 100 mls/hr IV Q24HR AMRITA; Protocol Ondansetron HCl (Zofran) 4 mg IV Q8H PRN PRN Reason: Nausea And Vomiting Pneumococcal Polyvalent Vaccine (Pneumovax 23) 0.5 ml IM .ONCE ONE Stop: 06/17/18 12:01 Sodium Chloride (Sodium Chloride Flush Syringe 10 Ml) 10 ml IV BID AMRITA Sodium Chloride (Sodium Chloride Flush Syringe 10 Ml) 10 ml IV PRN PRN PRN Reason: LINE FLUSH Review of Systems Constitutional: no weight loss, no weight gain Ears, nose, mouth and throat: no ear pain, no nose pain, no sinus pressure, no sinus pain Cardiovascular: chest pain, shortness of breath, high blood pressure, no orthopnea, no palpitations, no rapid/irregular heart beat, no edema, no syncope , no lightheadedness, no leg edema Respiratory: cough with sputum, shortness of breath, congestion, wheezing, pain on inspiration Gastrointestinal: no abdominal pain, no nausea, no vomiting, no diarrhea, no constipation, no change in bowel habits Genitourinary Male: no dysuria, no hematuria, no flank pain, no discharge, no urinary frequency, no urinary hesitancy Musculoskeletal: no neck stiffness, no neck pain, no shooting arm pain, no arm numbness/tingling, no low back pain, no shooting leg pain, no leg numbness/ tingling, no redness of joints Integumentary: no rash, no pruritis, no redness, no sores, no wounds Neurological: no head injury, no paralysis, no weakness, no parathesias, no numbness, no tingling, no seizures, no syncope Psychiatric: no anxiety Endocrine: no cold intolerance, no heat intolerance Hematologic/Lymphatic: no easy bruising, no easy bleeding Allergic/Immunologic: wheezing, no urticaria Physical Examination Vital Signs Temp Pulse Resp BP Pulse Ox 98 F 109 H 24 157/120 100 06/16/18 18:08 06/16/18 18:08 06/16/18 18:08 06/16/18 18:08 06/16/18 18:08 General appearance: no acute distress HEENT: Positive: PERRL, Normocephaly, Mucus Membranes Moist Cardiac: Positive: Reg Rate and Rhythm, S1/S2 Lungs: Positive: Decreased Breath Sounds, Wheezes, Rhonchi Neuro: Positive: Grossly Intact Abdomen: Positive: Hepatomegaly. Negative: Tender Skin: Positive: Clear. Negative: Rash, Wound Musculoskeletal: No Pain Extremities: Absent: edema Results 06/17/18 04:47 06/17/18 04:47 Cardiac Enzymes 06/16/18 06/17/18 Range/Units 23:37 04:47 CK-MB (CK-2) 10.1 H 8.2 H (0.0-4.0) ng/mL Lipids 06/16/18 Range/Units 18:41 Triglycerides 124 (2-149) mg/dL Cholesterol 175 (50-199) mg/dL HDL Cholesterol 60 H (40-59) mg/dL Cholesterol/HDL Ratio 2.91 % CBC 06/16/18 06/16/18 06/16/18 Range/Units 18:48 19:23 23:08 WBC TNR 10.3 14.5 H RBC TNR 4.08 4.73 Hgb TNR 13.6 15.3 H Hct TNR 39.2 45.8 H D Plt Count TNR 162 186 Lymph # TNR 0.9 L 1.2 [place] # TNR 1.2 H 1.4 H Eos # TNR 0.0 0.1 Baso # TNR 0.0 0.1 06/16/18 06/17/18 Range/Units 23:37 04:47 WBC 13.2 H 13.4 H RBC 4.77 4.80 Hgb 15.4 H 15.5 H Hct 46.5 H 46.9 H Plt Count 191 144 Lymph # 1.2 [place] # 1.4 H Eos # 0.0 Baso # 0.1 Comprehensive Metabolic Panel 06/16/18 06/16/18 06/16/18 Range/Units 18:41 23:08 23:37 Sodium 143 144 144 (137-145) mmol/L Potassium 3.3 L 2.9 L* 3.0 L (3.6-5.0) mmol/L Chloride 102.8 102.9 102.3 (98-107) mmol/L Carbon Dioxide 29 27 28 (22-30) mmol/L BUN 14 12 11 (9-20) mg/dL Creatinine 0.9 0.8 0.8 (0.8-1.5) mg/dL Glucose 106 H 100 110 H (75-100) mg/dL Calcium 8.7 8.7 8.7 (8.4-10.2) mg/dL 06/17/18 Range/Units 04:47 Sodium 141 (137-145) mmol/L Potassium 3.6 (3.6-5.0) mmol/L Chloride 100.5 (98-107) mmol/L Carbon Dioxide 24 (22-30) mmol/L BUN 11 (9-20) mg/dL Creatinine 0.8 (0.8-1.5) mg/dL Glucose 140 H (75-100) mg/dL Calcium 8.7 (8.4-10.2) mg/dL - Imaging and Cardiology Echo: pending EKG: report reviewed, image reviewed EKG interpretations - Telemetry EKG Rhythm: Sinus Rhythm - EKG Sinus rhythms and dysrhythmias: sinus rhythm Chamber hypertrophy or enlargement: left ventricular hypertro Assessment and Plan Chest pain is pleuritic, ECG with NAF. Minimal troponin elevation currently nonspecific in setting of uncontrolled HTN and acute infection. No indication for ischemic evaluation at this time. Obtain echo. Optimize anti-hypertensive regimen. Cont IV abx per primary. The patient has been seen in conjunction with Dr. Buck who agrees with the assessment and plan of care. - Patient Problems (1) Pneumonia Current Visit: Yes Status: Acute (2) Uncontrolled hypertension Current Visit: Yes Status: Acute (3) Pleuritic chest pain Current Visit: Yes Status: Acute (4) Elevated troponin Current Visit: Yes Status: Acute (5) ETOH abuse Current Visit: Yes Status: Chronic (6) Tobacco use Current Visit: Yes Status: Chronic (7) Obesity Current Visit: Yes Status: Chronic
[2018-06-17] MEDS ORDERED: PNEUMOVAX 23 IM ONE (12:00)
[2018-06-17] MEDS ORDERED: AFLURIA QUAD 2018-2019 SYRINGE IM ONE (12:00)
[2018-06-17] MEDS: ROCEPHIN/NS 1 GM/50 ML 1 GM/50 ML BAG IV SCH (12:51)
[2018-06-17] MEDS: SODIUM CHLORIDE FLUSH SYRINGE 10 ML IV SCH ×3 (12:52→22:46)
[2018-06-17] MEDS: CATAPRES PO PRN (12:53)
[2018-06-17] MEDS: NORVASC PO SCH (12:53)
[2018-06-17] MEDS: ZITHROMAX 500 MG in NACL 0.9% 250ML 250 ML IV SCH (12:59)
--- NOTE | 2018-06-17 16:36 | Progress Note ---
Assessment and Plan Assesment/plan 1. Acute CAP 2. Acute dyspnea (likely due to PNA) 3. Chest pain (pleuritic vr cardiac) 4. Elevated troponin r/o cardiac ischemia 5. Uncontrolled HTN 6. LVH (likely due to long standing HTN) 7. Hypokelimia 8. Elevate BNP (4643) Plan Started Ceftriaxone and Azithromycin for PNA Nebs tx PRN for dyspnea O2 to keep sat >92% Continue Serial troponin to r/o [place] Stress test on Sunday Replace potassium Hydralazine IV PRN for BP control HCTZ daily for BP control Advance Directives: Yes VTE prophylaxis?: Chemical Plan of care discussed with patient/family: Yes Subjective Date of service: 06/17/18 Principal diagnosis: PNA/Chest pain Interval history: Sx better Objective - Constitutional Vitals: Vital Signs - 12hr 06/17/18 06/17/18 06/17/18 05:40 05:57 08:30 Temperature 97.2 F L 98.3 F Pulse Rate 109 H 114 H Respiratory 17 20 Rate Blood Pressure 167/110 159/118 Blood Pressure 167/110 [Left] O2 Sat by Pulse 91 94 Oximetry 06/17/18 06/17/18 06/17/18 09:26 10:00 12:43 Temperature 98.0 F Pulse Rate 104 H 117 H Respiratory 20 Rate Blood Pressure 162/118 Blood Pressure 176/135 [Left] O2 Sat by Pulse 99 95 Oximetry 06/17/18 12:53 Temperature Pulse Rate 117 H Respiratory Rate Blood Pressure 176/135 Blood Pressure [Left] O2 Sat by Pulse Oximetry General appearance: Present: no acute distress, well-nourished - EENT Eyes: PERRL, EOM intact ENT: hearing intact, clear oral mucosa Ears: bilateral: normal - Neck Neck: supple, normal ROM - Respiratory Respiratory effort: normal Respiratory: bilateral: CTA, rhonchi (Scattered) - Breasts Breasts: normal - Cardiovascular Heart rate: 78 Rhythm: regular Heart Sounds: Present: S1 & S2. Absent: gallop, rub Extremities: pulses intact, No edema, normal color, Full ROM - Gastrointestinal General gastrointestinal: Present: soft, non-tender, non-distended, normal bowel sounds - Genitourinary Male genitourinary: normal - Integumentary Integumentary: clear, warm, dry - Musculoskeletal Musculoskeletal: 1, strength equal bilaterally - Neurologic Neurologic: moves all extremities - Psychiatric Psychiatric: memory intact, appropriate mood/affect, intact judgment & insight - Labs CBC & Chem 7: 06/17/18 04:47 06/18/18 04:30 Labs: Abnormal lab results 06/16/18 06/16/18 06/16/18 Range/Units 18:41 19:23 20:52 WBC (4.5-11.0) K/mm3 Hgb (11.8-15.2) gm/dl Hct (35.5-45.6) % MCV 96 H (84-94) fl MCH 33 H (28-32) pg MCHC 35 H (32-34) % RDW 15.6 H (13.2-15.2) % Lymph % (Auto) 8.9 L (13.4-35.0) % [place] % (Auto) 11.3 H (0.0-7.3) % Lymph # 0.9 L (1.2-5.4) K/mm3 [place] # 1.2 H (0.0-0.8) K/mm3 Seg Neutrophils % 79.6 H (40.0-70.0) % Seg Neuts % (Manual) (40.0-70.0) % Lymphocytes % (Manual) (13.4-35.0) % Seg Neutrophils # 8.2 H (1.8-7.7) K/mm3 Seg Neutrophils # Man (1.8-7.7) K/mm3 Lymphocytes # (Manual) (1.2-5.4) K/mm3 VBG pH (7.320-7.420) Potassium 3.3 L (3.6-5.0) mmol/L Glucose 106 H (75-100) mg/dL Total Creatine Kinase (55-170) units/L CK-MB (CK-2) (0.0-4.0) ng/mL Troponin T 0.032 H (0.00-0.029) ng/mL NT-Pro-B Natriuret Pep 4643 H (0-450) pg/mL HDL Cholesterol 60 H (40-59) mg/dL 06/16/18 06/16/18 06/16/18 Range/Units 20:52 23:08 23:08 WBC 14.5 H (4.5-11.0) K/mm3 Hgb 15.3 H (11.8-15.2) gm/dl Hct 45.8 H D (35.5-45.6) % MCV 97 H (84-94) fl MCH (28-32) pg MCHC (32-34) % RDW 15.8 H (13.2-15.2) % Lymph % (Auto) 8.4 L (13.4-35.0) % [place] % (Auto) 9.9 H (0.0-7.3) % Lymph # (1.2-5.4) K/mm3 [place] # 1.4 H (0.0-0.8) K/mm3 Seg Neutrophils % 80.7 H (40.0-70.0) % Seg Neuts % (Manual) (40.0-70.0) % Lymphocytes % (Manual) (13.4-35.0) % Seg Neutrophils # 11.7 H (1.8-7.7) K/mm3 Seg Neutrophils # Man (1.8-7.7) K/mm3 Lymphocytes # (Manual) (1.2-5.4) K/mm3 VBG pH 7.442 H (7.320-7.420) Potassium 2.9 L* (3.6-5.0) mmol/L Glucose (75-100) mg/dL Total Creatine Kinase (55-170) units/L CK-MB (CK-2) (0.0-4.0) ng/mL Troponin T (0.00-0.029) ng/mL NT-Pro-B Natriuret Pep (0-450) pg/mL HDL Cholesterol (40-59) mg/dL 06/16/18 06/16/18 06/16/18 Range/Units 23:37 23:37 23:37 WBC 13.2 H (4.5-11.0) K/mm3 Hgb 15.4 H (11.8-15.2) gm/dl Hct 46.5 H (35.5-45.6) % MCV 97 H (84-94) fl MCH (28-32) pg MCHC (32-34) % RDW 15.8 H (13.2-15.2) % Lymph % (Auto) 9.1 L (13.4-35.0) % [place] % (Auto) 10.5 H (0.0-7.3) % Lymph # (1.2-5.4) K/mm3 [place] # 1.4 H (0.0-0.8) K/mm3 Seg Neutrophils % 80.0 H (40.0-70.0) % Seg Neuts % (Manual) (40.0-70.0) % Lymphocytes % (Manual) (13.4-35.0) % Seg Neutrophils # 10.6 H (1.8-7.7) K/mm3 Seg Neutrophils # Man (1.8-7.7) K/mm3 Lymphocytes # (Manual) (1.2-5.4) K/mm3 VBG pH (7.320-7.420) Potassium 3.0 L (3.6-5.0) mmol/L Glucose 110 H (75-100) mg/dL Total Creatine Kinase 415 H (55-170) units/L CK-MB (CK-2) 10.1 H (0.0-4.0) ng/mL Troponin T (0.00-0.029) ng/mL NT-Pro-B Natriuret Pep (0-450) pg/mL HDL Cholesterol (40-59) mg/dL 06/17/18 06/17/18 06/17/18 Range/Units 00:23 04:47 04:47 WBC 13.4 H (4.5-11.0) K/mm3 Hgb 15.5 H (11.8-15.2) gm/dl Hct 46.9 H (35.5-45.6) % MCV 98 H (84-94) fl MCH (28-32) pg MCHC (32-34) % RDW 16.3 H (13.2-15.2) % Lymph % (Auto) (13.4-35.0) % [place] % (Auto) (0.0-7.3) % Lymph # (1.2-5.4) K/mm3 [place] # (0.0-0.8) K/mm3 Seg Neutrophils % (40.0-70.0) % Seg Neuts % (Manual) 99.0 H (40.0-70.0) % Lymphocytes % (Manual) 0 L (13.4-35.0) % Seg Neutrophils # (1.8-7.7) K/mm3 Seg Neutrophils # Man 13.3 H (1.8-7.7) K/mm3 Lymphocytes # (Manual) 0.0 L (1.2-5.4) K/mm3 VBG pH (7.320-7.420) Potassium (3.6-5.0) mmol/L Glucose 140 H (75-100) mg/dL Total Creatine Kinase 361 H (55-170) units/L CK-MB (CK-2) 8.2 H (0.0-4.0) ng/mL Troponin T 0.031 H (0.00-0.029) ng/mL NT-Pro-B Natriuret Pep (0-450) pg/mL HDL Cholesterol (40-59) mg/dL
[2018-06-18] MEDS: CATAPRES PO PRN (05:34)
[2018-06-18 06:00] LABS: Alanine Aminotransferase 52 units/L (7-56); Albumin 3.7 g/dL (3.9-5); BUN/Creatinine Ratio 15; Blood Urea Nitrogen 12 mg/dL (9-20); Calcium 8.9 mg/dL (8.4-10.2); Hemolysis Index 36
[2018-06-18] MEDS ORDERED: K-DUR PO NR (10:46)
[2018-06-18] MEDS: NORVASC PO SCH (10:54)
[2018-06-18] MEDS: ROCEPHIN/NS 1 GM/50 ML 1 GM/50 ML BAG IV SCH (10:55)
[2018-06-18] MEDS: LOVENOX SUB-Q SCH (10:55)
--- NOTE | 2018-06-18 10:58 | Progress Note ---
Assessment and Plan Echo reviewed - EF 40-45%, mild LVH, mild TR, mild pulm HTN with RVSP 40mmHg. Chest pain is pleuritic, ECG with NAF. Minimal troponin elevation currently nonspecific in setting of uncontrolled HTN and acute infection. No indication for ischemic evaluation at this time. Optimize anti-hypertensive regimen - initiate lopressor. Cont IV abx per primary. The patient has been seen in conjunction with Dr. Buck who agrees with the assessment and plan of care. - Patient Problems (1) Pneumonia Current Visit: Yes Status: Acute (2) Uncontrolled hypertension Current Visit: Yes Status: Acute (3) Pleuritic chest pain Current Visit: Yes Status: Acute (4) Elevated troponin Current Visit: Yes Status: Acute (5) ETOH abuse Current Visit: Yes Status: Chronic (6) Tobacco use Current Visit: Yes Status: Chronic (7) Obesity Current Visit: Yes Status: Chronic Subjective Date of service: 06/18/18 Principal diagnosis: PNA/Chest pain Interval history: pt resting comfortably in bed, still with c/o SOB and productive cough. states pleuritic chest pain is improving. Objective Last Vital Signs Temp 98.6 F 06/18/18 08:33 Pulse 101 H 06/18/18 08:33 Resp 20 06/18/18 08:33 BP 145/97 06/18/18 08:33 Pulse Ox 97 06/18/18 08:43 - Physical Examination HEENT: Positive: PERRL, Normocephaly, Mucus Membranes Moist Cardiac: Positive: Reg Rate and Rhythm, S1/S2 Lungs: Positive: Decreased Breath Sounds, Rhonchi Neuro: Positive: Grossly Intact Abdomen: Positive: Hepatomegaly. Negative: Tender Skin: Positive: Clear. Negative: Rash, Wound Musculoskeletal: No Pain Extremities: Absent: edema - Labs and Meds Cardiac Enzymes 06/18/18 Range/Units 04:30 AST 29 (5-40) units/L Comprehensive Metabolic Panel 06/18/18 Range/Units 04:30 Sodium 144 (137-145) mmol/L Potassium 3.3 L (3.6-5.0) mmol/L Chloride 102.7 (98-107) mmol/L Carbon Dioxide 28 (22-30) mmol/L BUN 12 (9-20) mg/dL Creatinine 0.8 (0.8-1.5) mg/dL Glucose 117 H (75-100) mg/dL Calcium 8.9 (8.4-10.2) mg/dL AST 29 (5-40) units/L ALT 52 (7-56) units/L Alkaline Phosphatase 70 (35-129) units/L Total Protein 6.4 (6.3-8.2) g/dL Albumin 3.7 L (3.9-5) g/dL - Imaging and Cardiology EKG: report reviewed, image reviewed Echo: pending - EKG Sinus rhythms and dysrhythmias: sinus rhythm Chamber hypertrophy or enlargement: left ventricular hypertro
[2018-06-18] MEDS: ZITHROMAX 500 MG in NACL 0.9% 250ML 250 ML IV SCH (10:59)
[2018-06-18] MEDS: PROVENTIL IH PRN ×3 (11:07→21:40)
[2018-06-18] MEDS: LOPRESSOR PO SCH ×2 (12:44→21:14)
--- NOTE | 2018-06-18 18:35 | Progress Note ---
Assessment and Plan Assessment and plan: --Acute community-acquired pneumonia; Continue Rocephin and Zithromax, oxygen titrated to O2 sats more than 90%, supportive care, follow-up chest x-ray --Acute bronchitis; bronchodilators, low dose steroids if needed --Hypokalemia; replenish per protocol and monitor levels --Uncontrolled hypertension; continue current antihypertensives and when necessary medications --Nonspecific elevation of troponins; cardiology evaluated the patient, no ischemic workup, Echocardiogram mild congestive heart failure --Acute congestive heart failure; mild systolic dysfunction Echocardiogram, EF 40-45% --Morbid obesity; BMI 38.5 Advised weight reduction, diet modification and exercise as tolerated --DVT prophylaxis; Lovenox Consults and recommendations noted and appreciated Closely monitor the patient and adjust the management as needed Possible discharge in 1-2 days if stable History Interval history: Patient seen and examined medical records reviewed Patient feels slightly better Admitted with pneumonia and chest pain Cardiology evaluated the patient Patient denies any new complaints Vital signs noted Hospitalist Physical - Constitutional Vitals: Temp Pulse Resp BP Pulse Ox 98.6 F 103 H 20 130/98 97 06/18/18 17:00 06/18/18 17:00 06/18/18 17:00 06/18/18 17:00 06/18/18 17:00 General appearance: Present: no acute distress, well-nourished, obese - EENT Eyes: Present: PERRL, EOM intact - Neck Neck: Present: supple, normal ROM - Respiratory Respiratory effort: normal Respiratory: bilateral: diminished, rhonchi (right more than left) - Cardiovascular Rhythm: regular Heart Sounds: Present: S1 & S2 - Extremities Extremities: no ischemia, No edema - Abdominal General gastrointestinal: soft, non-tender, non-distended, normal bowel sounds - Integumentary Integumentary: Present: clear, warm - Psychiatric Psychiatric: appropriate mood/affect, cooperative - Neurologic Neurologic: CNII-XII intact, moves all extremities Results - Labs CBC & Chem 7: 06/20/18 07:00 06/19/18 05:38 Labs: Laboratory Last Values WBC 13.4 K/mm3 (4.5-11.0) H 06/17/18 04:47 RBC 4.80 M/mm3 (3.65-5.03) 06/17/18 04:47 Hgb 15.5 gm/dl (11.8-15.2) H 06/17/18 04:47 Hct 46.9 % (35.5-45.6) H 06/17/18 04:47 MCV 98 fl (84-94) H 06/17/18 04:47 MCH 32 pg (28-32) 06/17/18 04:47 MCHC 33 % (32-34) 06/17/18 04:47 RDW 16.3 % (13.2-15.2) H 06/17/18 04:47 Plt Count 144 K/mm3 (140-440) 06/17/18 04:47 Lymph % (Auto) 9.1 % (13.4-35.0) L 06/16/18 23:37 [place] % (Auto) 10.5 % (0.0-7.3) H 06/16/18 23:37 Eos % (Auto) 0.0 % (0.0-4.3) 06/16/18 23:37 Baso % (Auto) 0.4 % (0.0-1.8) 06/16/18 23:37 Lymph # 1.2 K/mm3 (1.2-5.4) 06/16/18 23:37 [place] # 1.4 K/mm3 (0.0-0.8) H 06/16/18 23:37 Eos # 0.0 K/mm3 (0.0-0.4) 06/16/18 23:37 Baso # 0.1 K/mm3 (0.0-0.1) 06/16/18 23:37 Add Manual Diff Complete 06/17/18 04:47 Total Counted 100 06/17/18 04:47 Seg Neutrophils % Claim Examiner 06/17/18 04:47 Seg Neuts % (Manual) 99.0 % (40.0-70.0) H 06/17/18 04:47 Band Neutrophils % 0 % 06/17/18 04:47 Lymphocytes % (Manual) 0 % (13.4-35.0) L 06/17/18 04:47 Reactive Lymphs % (Man) 0 % 06/17/18 04:47 Monocytes % (Manual) 1.0 % (0.0-7.3) 06/17/18 04:47 Eosinophils % (Manual) 0 % (0.0-4.3) 06/17/18 04:47 Basophils % (Manual) 0 % (0.0-1.8) 06/17/18 04:47 Metamyelocytes % 0 % 06/17/18 04:47 Myelocytes % 0 % 06/17/18 04:47 Promyelocytes % 0 % 06/17/18 04:47 Blast Cells % 0 % 06/17/18 04:47 Nucleated RBC % Not Reportable 06/17/18 04:47 Seg Neutrophils # 10.6 K/mm3 (1.8-7.7) H 06/16/18 23:37 Seg Neutrophils # Man 13.3 K/mm3 (1.8-7.7) H 06/17/18 04:47 Band Neutrophils # 0.0 K/mm3 06/17/18 04:47 Lymphocytes # (Manual) 0.0 K/mm3 (1.2-5.4) L 06/17/18 04:47 Abs React Lymphs (Man) 0.0 K/mm3 06/17/18 04:47 Monocytes # (Manual) 0.1 K/mm3 (0.0-0.8) 06/17/18 04:47 Eosinophils # (Manual) 0.0 K/mm3 (0.0-0.4) 06/17/18 04:47 Basophils # (Manual) 0.0 K/mm3 (0.0-0.1) 06/17/18 04:47 Metamyelocytes # 0.0 K/mm3 06/17/18 04:47 Myelocytes # 0.0 K/mm3 06/17/18 04:47 Promyelocytes # 0.0 K/mm3 06/17/18 04:47 Blast Cells # 0.0 K/mm3 06/17/18 04:47 WBC Morphology Not Reportable 06/17/18 04:47 Hypersegmented Neuts Not Reportable 06/17/18 04:47 Hyposegmented Neuts Not Reportable 06/17/18 04:47 Hypogranular Neuts Not Reportable 06/17/18 04:47 Hypersegmented Polys TNR 06/16/18 18:48 Smudge Cells Not Reportable 06/17/18 04:47 Toxic Granulation Not Reportable 06/17/18 04:47 Toxic Vacuolation Not Reportable 06/17/18 04:47 Dohle Bodies Not Reportable 06/17/18 04:47 Pelger-Huet Anomaly Not Reportable 06/17/18 04:47 Nadya Rods Not Reportable 06/17/18 04:47 Platelet Estimate Consistent w auto 06/17/18 04:47 Clumped Platelets Few 06/17/18 04:47 Plt Clumps, EDTA Not Reportable 06/17/18 04:47 Large Platelets Few 06/17/18 04:47 Giant Platelets Not Reportable 06/17/18 04:47 Platelet Satelliting Not Reportable 06/17/18 04:47 Plt Morphology Comment Not Reportable 06/17/18 04:47 RBC Morphology Not Reportable 06/17/18 04:47 Dimorphic RBCs Not Reportable 06/17/18 04:47 Polychromasia Few 06/17/18 04:47 Hypochromasia Not Reportable 06/17/18 04:47 Poikilocytosis Not Reportable 06/17/18 04:47 Basophilic Stippling TNR 06/16/18 18:48 Anisocytosis Not Reportable 06/17/18 04:47 Microcytosis Not Reportable 06/17/18 04:47 Macrocytosis Not Reportable 06/17/18 04:47 Spherocytes Not Reportable 06/17/18 04:47 Pappenheimer Bodies Not Reportable 06/17/18 04:47 Sickle Cells Not Reportable 06/17/18 04:47 Target Cells Not Reportable 06/17/18 04:47 Tear Drop Cells Not Reportable 06/17/18 04:47 Ovalocytes Not Reportable 06/17/18 04:47 Stomatocytes TNR 06/16/18 18:48 Helmet Cells Not Reportable 06/17/18 04:47 [place] Bodies Not Reportable 06/17/18 04:47 Paul Rings Not Reportable 06/17/18 04:47 Yan Cells Not Reportable 06/17/18 04:47 Bite Cells Not Reportable 06/17/18 04:47 Crenated Cell Not Reportable 06/17/18 04:47 Elliptocytes Not Reportable 06/17/18 04:47 Acanthocytes (Spur) Not Reportable 06/17/18 04:47 Rouleaux Not Reportable 06/17/18 04:47 Hemoglobin C Crystals Not Reportable 06/17/18 04:47 Schistocytes Not Reportable 06/17/18 04:47 Malaria parasites Not Reportable 06/17/18 04:47 Louie Bodies Not Reportable 06/17/18 04:47 Hem Pathologist Commnt No 06/17/18 04:47 VBG pH 7.442 (7.320-7.420) H 06/16/18 20:52 Sodium 144 mmol/L (137-145) 06/18/18 04:30 Potassium 3.3 mmol/L (3.6-5.0) L 06/18/18 04:30 Chloride 102.7 mmol/L (98-107) 06/18/18 04:30 Carbon Dioxide 28 mmol/L (22-30) 06/18/18 04:30 Anion Gap 17 mmol/L 06/18/18 04:30 BUN 12 mg/dL (9-20) 06/18/18 04:30 Creatinine 0.8 mg/dL (0.8-1.5) 06/18/18 04:30 Estimated GFR > 60 ml/min 06/18/18 04:30 BUN/Creatinine Ratio 15 % 06/18/18 04:30 Glucose 117 mg/dL (75-100) H 06/18/18 04:30 Lactic Acid 1.60 mmol/L (0.7-2.0) 06/16/18 20:52 Calcium 8.9 mg/dL (8.4-10.2) 06/18/18 04:30 Magnesium 1.90 mg/dL (1.7-2.3) 06/16/18 21:01 Total Bilirubin 0.50 mg/dL (0.1-1.2) 06/18/18 04:30 AST 29 units/L (5-40) 06/18/18 04:30 ALT 52 units/L (7-56) 06/18/18 04:30 Alkaline Phosphatase 70 units/L (35-129) 06/18/18 04:30 Total Creatine Kinase 361 units/L (55-170) H 06/17/18 04:47 CK-MB (CK-2) 8.2 ng/mL (0.0-4.0) H 06/17/18 04:47 CK-MB (CK-2) Rel Index 2.4 (0-4) 06/16/18 23:37 Troponin T 0.019 ng/mL (0.00-0.029) 06/17/18 12:43 NT-Pro-B Natriuret Pep 4643 pg/mL (0-450) H 06/16/18 20:52 Total Protein 6.4 g/dL (6.3-8.2) 06/18/18 04:30 Albumin 3.7 g/dL (3.9-5) L 06/18/18 04:30 Albumin/Globulin Ratio 1.4 % 06/18/18 04:30 Triglycerides 124 mg/dL (2-149) 06/16/18 18:41 Cholesterol 175 mg/dL (50-199) 06/16/18 18:41 LDL Cholesterol Direct 106 mg/dL (50-130) 06/16/18 18:41 HDL Cholesterol 60 mg/dL (40-59) H 06/16/18 18:41 Cholesterol/HDL Ratio 2.91 % 06/16/18 18:41 Urine Color Straw (Yellow) 06/16/18 23:30 Urine Turbidity Clear (Clear) 06/16/18 23:30 Urine pH 7.0 (5.0-7.0) 06/16/18 23:30 Ur Specific [place] 1.008 (1.003-1.030) 06/16/18 23:30 Urine Protein 30 mg/dl mg/dL (Negative) 06/16/18 23:30 Urine Glucose (UA) Neg mg/dL (Negative) 06/16/18 23:30 Urine Ketones Neg mg/dL (Negative) 06/16/18 23:30 Urine Blood Sm (Negative) 06/16/18 23:30 Urine Nitrite Neg (Negative) 06/16/18 23:30 Urine Bilirubin Neg (Negative) 06/16/18 23:30 Urine Urobilinogen < 2.0 mg/dL (<2.0) 06/16/18 23:30 Ur Leukocyte Esterase Neg (Negative) 06/16/18 23:30 Urine WBC (Auto) < 1.0 /HPF (0.0-6.0) 06/16/18 23:30 Urine RBC (Auto) 1.0 /HPF (0.0-6.0) 06/16/18 23:30 Urine Mucus Few /HPF 06/16/18 23:30
[2018-06-18] MEDS: SODIUM CHLORIDE FLUSH SYRINGE 10 ML IV SCH (21:15)
[2018-06-19] MEDS: PROVENTIL IH PRN ×3 (05:10→23:12)
[2018-06-19 06:17] LABS: BUN/Creatinine Ratio 15; Blood Urea Nitrogen 12 mg/dL (9-20); Calcium 8.8 mg/dL (8.4-10.2); Hemolysis Index 68
[2018-06-19] MEDS: LOVENOX SUB-Q SCH (09:08)
[2018-06-19] MEDS: LOPRESSOR PO SCH ×2 (09:08→22:11)
[2018-06-19] MEDS: NORVASC PO SCH (09:09)
[2018-06-19] MEDS: SODIUM CHLORIDE FLUSH SYRINGE 10 ML IV SCH ×3 (09:09→22:12)
[2018-06-19] MEDS: ZITHROMAX 500 MG in NACL 0.9% 250ML 250 ML IV SCH (09:09)
[2018-06-19] MEDS: ROCEPHIN/NS 1 GM/50 ML 1 GM/50 ML BAG IV SCH (10:56)
--- NOTE | 2018-06-19 12:58 | Progress Note ---
Assessment and Plan Currently stable cardiac status. Pt may discharge home from cardiology standpoint. Recommend follow up in our office with Dr. Buck within 2 weeks of hospital discharge ([phone]). The patient has been seen in conjunction with Dr. Buck who agrees with the assessment and plan of care. - Patient Problems (1) Pneumonia Current Visit: Yes Status: Acute (2) Uncontrolled hypertension Current Visit: Yes Status: Acute (3) Pleuritic chest pain Current Visit: Yes Status: Acute (4) Elevated troponin Current Visit: Yes Status: Acute (5) ETOH abuse Current Visit: Yes Status: Chronic (6) Tobacco use Current Visit: Yes Status: Chronic (7) Obesity Current Visit: Yes Status: Chronic (8) NSVT (nonsustained ventricular tachycardia) Current Visit: Yes Status: Acute Subjective Date of service: 06/19/18 Principal diagnosis: PNA/Chest pain Interval history: pt resting comfortably in bed, states he is feeling much better today. SOB and pleuritic chest pain currently resolved. Objective Last Vital Signs Temp 98.5 F 06/19/18 07:41 Pulse 89 06/19/18 09:08 Resp 18 06/19/18 08:09 BP 143/103 06/19/18 09:08 Pulse Ox 94 06/19/18 09:15 - Physical Examination HEENT: Positive: PERRL, Normocephaly, Mucus Membranes Moist Neck: Positive: neck supple Cardiac: Positive: Reg Rate and Rhythm, S1/S2 Lungs: Positive: Decreased Breath Sounds Neuro: Positive: Grossly Intact Abdomen: Positive: Hepatomegaly. Negative: Tender Skin: Positive: Clear. Negative: Rash, Wound Musculoskeletal: No Pain Extremities: Absent: edema - Labs and Meds Comprehensive Metabolic Panel 06/19/18 Range/Units 05:38 Sodium 143 (137-145) mmol/L Potassium 3.9 (3.6-5.0) mmol/L Chloride 103.3 (98-107) mmol/L Carbon Dioxide 26 (22-30) mmol/L BUN 12 (9-20) mg/dL Creatinine 0.8 (0.8-1.5) mg/dL Glucose 119 H (75-100) mg/dL Calcium 8.8 (8.4-10.2) mg/dL - Imaging and Cardiology EKG: report reviewed, image reviewed Echo: report reviewed (EF 40-45%, mild LVH, mild TR, mild pulm HTN with RVSP 40mmHg. ) - Telemetry EKG Rhythm: Sinus Rhythm - EKG Sinus rhythms and dysrhythmias: sinus rhythm Chamber hypertrophy or enlargement: left ventricular hypertro
--- NOTE | 2018-06-19 14:43 | Progress Note ---
Assessment and Plan Assessment and plan: --Acute community-acquired pneumonia; Continue Rocephin and Zithromax, oxygen titrated to O2 sats more than 90%, supportive care, follow-up chest x-ray --Acute bronchitis; bronchodilators, low dose steroids Supportive care --Acute congestive heart failure; mild systolic dysfunction Echocardiogram, EF 40-45% --Morbid obesity; BMI 38.5 Advised weight reduction, diet modification and exercise as tolerated --DVT prophylaxis; Lovenox Closely monitor the patient and adjust the management as needed Possible discharge in 1-2 days if stable History Interval history: Patient seen and examined medical records reviewed No new events reported by the nursing staff Patient continues to have shortness of breath and wheeze Wants to go home, I do not think patient is stable to be discharged Vital signs noted Hospitalist Physical - Constitutional Vitals: Temp Pulse Resp BP Pulse Ox 98.5 F 89 18 143/103 94 06/19/18 07:41 06/19/18 09:08 06/19/18 08:09 06/19/18 09:08 06/19/18 09:15 General appearance: Present: mild distress (secondary to shortness of breath), well-nourished - EENT Eyes: Present: PERRL, EOM intact - Neck Neck: Present: supple, normal ROM - Respiratory Respiratory effort: normal Respiratory: bilateral: diminished, wheezing, negative: rales, rhonchi - Cardiovascular Rhythm: regular Heart Sounds: Present: S1 & S2 - Extremities Extremities: no ischemia, No edema - Abdominal General gastrointestinal: soft, non-tender, non-distended, normal bowel sounds - Integumentary Integumentary: Present: clear, warm - Psychiatric Psychiatric: appropriate mood/affect, cooperative - Neurologic Neurologic: CNII-XII intact, moves all extremities Results - Labs CBC & Chem 7: 06/17/18 04:47 06/19/18 05:38 Labs: Laboratory Last Values WBC 13.4 K/mm3 (4.5-11.0) H 06/17/18 04:47 RBC 4.80 M/mm3 (3.65-5.03) 06/17/18 04:47 Hgb 15.5 gm/dl (11.8-15.2) H 06/17/18 04:47 Hct 46.9 % (35.5-45.6) H 06/17/18 04:47 MCV 98 fl (84-94) H 06/17/18 04:47 MCH 32 pg (28-32) 06/17/18 04:47 MCHC 33 % (32-34) 06/17/18 04:47 RDW 16.3 % (13.2-15.2) H 06/17/18 04:47 Plt Count 144 K/mm3 (140-440) 06/17/18 04:47 Lymph % (Auto) 9.1 % (13.4-35.0) L 06/16/18 23:37 [place] % (Auto) 10.5 % (0.0-7.3) H 06/16/18 23:37 Eos % (Auto) 0.0 % (0.0-4.3) 06/16/18 23:37 Baso % (Auto) 0.4 % (0.0-1.8) 06/16/18 23:37 Lymph # 1.2 K/mm3 (1.2-5.4) 06/16/18 23:37 [place] # 1.4 K/mm3 (0.0-0.8) H 06/16/18 23:37 Eos # 0.0 K/mm3 (0.0-0.4) 06/16/18 23:37 Baso # 0.1 K/mm3 (0.0-0.1) 06/16/18 23:37 Add Manual Diff Complete 06/17/18 04:47 Total Counted 100 06/17/18 04:47 Seg Neutrophils % Maintenance Service Dispatcher 06/17/18 04:47 Seg Neuts % (Manual) 99.0 % (40.0-70.0) H 06/17/18 04:47 Band Neutrophils % 0 % 06/17/18 04:47 Lymphocytes % (Manual) 0 % (13.4-35.0) L 06/17/18 04:47 Reactive Lymphs % (Man) 0 % 06/17/18 04:47 Monocytes % (Manual) 1.0 % (0.0-7.3) 06/17/18 04:47 Eosinophils % (Manual) 0 % (0.0-4.3) 06/17/18 04:47 Basophils % (Manual) 0 % (0.0-1.8) 06/17/18 04:47 Metamyelocytes % 0 % 06/17/18 04:47 Myelocytes % 0 % 06/17/18 04:47 Promyelocytes % 0 % 06/17/18 04:47 Blast Cells % 0 % 06/17/18 04:47 Nucleated RBC % Not Reportable 06/17/18 04:47 Seg Neutrophils # 10.6 K/mm3 (1.8-7.7) H 06/16/18 23:37 Seg Neutrophils # Man 13.3 K/mm3 (1.8-7.7) H 06/17/18 04:47 Band Neutrophils # 0.0 K/mm3 06/17/18 04:47 Lymphocytes # (Manual) 0.0 K/mm3 (1.2-5.4) L 06/17/18 04:47 Abs React Lymphs (Man) 0.0 K/mm3 06/17/18 04:47 Monocytes # (Manual) 0.1 K/mm3 (0.0-0.8) 06/17/18 04:47 Eosinophils # (Manual) 0.0 K/mm3 (0.0-0.4) 06/17/18 04:47 Basophils # (Manual) 0.0 K/mm3 (0.0-0.1) 06/17/18 04:47 Metamyelocytes # 0.0 K/mm3 06/17/18 04:47 Myelocytes # 0.0 K/mm3 06/17/18 04:47 Promyelocytes # 0.0 K/mm3 06/17/18 04:47 Blast Cells # 0.0 K/mm3 06/17/18 04:47 WBC Morphology Not Reportable 06/17/18 04:47 Hypersegmented Neuts Not Reportable 06/17/18 04:47 Hyposegmented Neuts Not Reportable 06/17/18 04:47 Hypogranular Neuts Not Reportable 06/17/18 04:47 Hypersegmented Polys TNR 06/16/18 18:48 Smudge Cells Not Reportable 06/17/18 04:47 Toxic Granulation Not Reportable 06/17/18 04:47 Toxic Vacuolation Not Reportable 06/17/18 04:47 Dohle Bodies Not Reportable 06/17/18 04:47 Pelger-Huet Anomaly Not Reportable 06/17/18 04:47 Nadya Rods Not Reportable 06/17/18 04:47 Platelet Estimate Consistent w auto 06/17/18 04:47 Clumped Platelets Few 06/17/18 04:47 Plt Clumps, EDTA Not Reportable 06/17/18 04:47 Large Platelets Few 06/17/18 04:47 Giant Platelets Not Reportable 06/17/18 04:47 Platelet Satelliting Not Reportable 06/17/18 04:47 Plt Morphology Comment Not Reportable 06/17/18 04:47 RBC Morphology Not Reportable 06/17/18 04:47 Dimorphic RBCs Not Reportable 06/17/18 04:47 Polychromasia Few 06/17/18 04:47 Hypochromasia Not Reportable 06/17/18 04:47 Poikilocytosis Not Reportable 06/17/18 04:47 Basophilic Stippling TNR 06/16/18 18:48 Anisocytosis Not Reportable 06/17/18 04:47 Microcytosis Not Reportable 06/17/18 04:47 Macrocytosis Not Reportable 06/17/18 04:47 Spherocytes Not Reportable 06/17/18 04:47 Pappenheimer Bodies Not Reportable 06/17/18 04:47 Sickle Cells Not Reportable 06/17/18 04:47 Target Cells Not Reportable 06/17/18 04:47 Tear Drop Cells Not Reportable 06/17/18 04:47 Ovalocytes Not Reportable 06/17/18 04:47 Stomatocytes TNR 06/16/18 18:48 Helmet Cells Not Reportable 06/17/18 04:47 [place] Bodies Not Reportable 06/17/18 04:47 [place] Rings Not Reportable 06/17/18 04:47 Yan Cells Not Reportable 06/17/18 04:47 Bite Cells Not Reportable 06/17/18 04:47 Crenated Cell Not Reportable 06/17/18 04:47 Elliptocytes Not Reportable 06/17/18 04:47 Acanthocytes (Spur) Not Reportable 06/17/18 04:47 Rouleaux Not Reportable 06/17/18 04:47 Hemoglobin C Crystals Not Reportable 06/17/18 04:47 Schistocytes Not Reportable 06/17/18 04:47 Malaria parasites Not Reportable 06/17/18 04:47 Louie Bodies Not Reportable 06/17/18 04:47 Hem Pathologist Commnt No 06/17/18 04:47 VBG pH 7.442 (7.320-7.420) H 06/16/18 20:52 Sodium 143 mmol/L (137-145) 06/19/18 05:38 Potassium 3.9 mmol/L (3.6-5.0) 06/19/18 05:38 Chloride 103.3 mmol/L (98-107) 06/19/18 05:38 Carbon Dioxide 26 mmol/L (22-30) 06/19/18 05:38 Anion Gap 18 mmol/L 06/19/18 05:38 BUN 12 mg/dL (9-20) 06/19/18 05:38 Creatinine 0.8 mg/dL (0.8-1.5) 06/19/18 05:38 Estimated GFR > 60 ml/min 06/19/18 05:38 BUN/Creatinine Ratio 15 % 06/19/18 05:38 Glucose 119 mg/dL (75-100) H 06/19/18 05:38 Lactic Acid 1.60 mmol/L (0.7-2.0) 06/16/18 20:52 Calcium 8.8 mg/dL (8.4-10.2) 06/19/18 05:38 Magnesium 1.90 mg/dL (1.7-2.3) 06/16/18 21:01 Total Bilirubin 0.50 mg/dL (0.1-1.2) 06/18/18 04:30 AST 29 units/L (5-40) 06/18/18 04:30 ALT 52 units/L (7-56) 06/18/18 04:30 Alkaline Phosphatase 70 units/L (35-129) 06/18/18 04:30 Total Creatine Kinase 361 units/L (55-170) H 06/17/18 04:47 CK-MB (CK-2) 8.2 ng/mL (0.0-4.0) H 06/17/18 04:47 CK-MB (CK-2) Rel Index 2.4 (0-4) 06/16/18 23:37 Troponin T 0.019 ng/mL (0.00-0.029) 06/17/18 12:43 NT-Pro-B Natriuret Pep 4643 pg/mL (0-450) H 06/16/18 20:52 Total Protein 6.4 g/dL (6.3-8.2) 06/18/18 04:30 Albumin 3.7 g/dL (3.9-5) L 06/18/18 04:30 Albumin/Globulin Ratio 1.4 % 06/18/18 04:30 Triglycerides 124 mg/dL (2-149) 06/16/18 18:41 Cholesterol 175 mg/dL (50-199) 06/16/18 18:41 LDL Cholesterol Direct 106 mg/dL (50-130) 06/16/18 18:41 HDL Cholesterol 60 mg/dL (40-59) H 06/16/18 18:41 Cholesterol/HDL Ratio 2.91 % 06/16/18 18:41 Urine Color Straw (Yellow) 06/16/18 23:30 Urine Turbidity Clear (Clear) 06/16/18 23:30 Urine pH 7.0 (5.0-7.0) 06/16/18 23:30 Ur Specific [place] 1.008 (1.003-1.030) 06/16/18 23:30 Urine Protein 30 mg/dl mg/dL (Negative) 06/16/18 23:30 Urine Glucose (UA) Neg mg/dL (Negative) 06/16/18 23:30 Urine Ketones Neg mg/dL (Negative) 06/16/18 23:30 Urine Blood Sm (Negative) 06/16/18 23:30 Urine Nitrite Neg (Negative) 06/16/18 23:30 Urine Bilirubin Neg (Negative) 06/16/18 23:30 Urine Urobilinogen < 2.0 mg/dL (<2.0) 06/16/18 23:30 Ur Leukocyte Esterase Neg (Negative) 06/16/18 23:30 Urine WBC (Auto) < 1.0 /HPF (0.0-6.0) 06/16/18 23:30 Urine RBC (Auto) 1.0 /HPF (0.0-6.0) 06/16/18 23:30 Urine Mucus Few /HPF 06/16/18 23:30
[2018-06-19] MEDS ORDERED: LASIX IV ONE (15:23)
--- NOTE | 2018-06-19 15:37 | XRay Report ---
FINAL REPORT EXAM: XR CHEST ROUTINE 2V HISTORY: follow-up pneumonia COMPARISON: Chest radiograph performed on 06/16/2018 TECHNIQUE: Frontal and lateral views of the chest FINDINGS: Stable cardiomegaly. New patchy opacities in the right upper lobe and right mid lung. Left lung is clear. No pleural effusion or pneumothorax. No acute bony or soft tissue abnormality. IMPRESSION: New patchy opacities in the right upper lobe and right midlung concerning for worsening pneumonia.
[2018-06-19] MEDS ORDERED: CLARITIN-D 24HR PO ONE (16:23)
[2018-06-20] MEDS: CATAPRES PO PRN (00:12)
[2018-06-20] MEDS ORDERED: APRESOLINE IV ONE (06:09)
[2018-06-20 07:34] LABS: Basophils % (Auto) 0.3 % (0.0-1.8); Eosinophils % (Auto) 0.4 % (0.0-4.3); Hematocrit 48.5 % (35.5-45.6); Hemoglobin 15.9 gm/dl (11.8-15.2); Lymphocytes # (Auto) 0.5 K/mm3 (1.2-5.4); Lymphocytes % (Auto) 7.3 % (13.4-35.0); Mean Corpuscular HGB Conc 33 % (32-34); Mean Corpuscular Hemoglobin 32 pg (28-32); Mean Corpuscular Volume 97 fl (84-94); Monocytes # (Auto) 0.8 K/mm3 (0.0-0.8); Monocytes % (Auto) 11.8 % (0.0-7.3); Platelet Count 193 K/mm3 (140-440); Red Blood Count 4.98 M/mm3 (3.65-5.03); Red Cell Distribution Width 16.3 % (13.2-15.2)
[2018-06-20] MEDS: LOVENOX SUB-Q SCH (10:14)
[2018-06-20] MEDS: LOPRESSOR PO SCH ×2 (10:15→22:53)
[2018-06-20] MEDS: NORVASC PO SCH (10:15)
[2018-06-20] MEDS: CLARITIN-D 24HR PO SCH (10:15)
[2018-06-20] MEDS: LASIX IV SCH (10:15)
[2018-06-20] MEDS: SODIUM CHLORIDE FLUSH SYRINGE 10 ML IV SCH ×2 (10:16→22:55)
--- NOTE | 2018-06-20 10:33 | Cat Scan Report ---
CTA CHEST INDICATION: Worsening pneumonia. Evaluate for pulmonary embolism. COMPARISON: Recent chest radiographs. FINDINGS: Chest CTA performed following intravenous administration of 100 cc of Omnipaque 350. Rotational MIP's also obtained. Borderline cardiomegaly with slight exaggerated cardiomediastinal silhouette on the substance abuse nurse view. No effusion or size significant adenopathy. Patent central airway. Unremarkable great vessels. Normal size thyroid with slight heterogeneity and a tiny 0.4 cm calcification on the left as on axial image 11, series 2. Multifocal bilateral pneumonias/consolidation involve all lobes, least at the bases. Greatest involvement of both upper lobes with largest confluent right upper lobe opacity approximately 6 cm as on axial image 62, series 3. Subtle nodularity in the right lower lobe also noted measuring up to 0.6 cm as on axial image 141, series 3. Imaged upper abdomen demonstrates bilateral adrenal extensive hypodense, lobulated enlargement as measuring approximately 6 x 2.8 cm on the right and approximately 5 x 4.5 cm on the left as on axial image 127, series 2. Their attenuations are approximately -11 HU. Few colonic diverticuli. Few spinal degenerative changes as spurring/osteophytes. CONCLUSION: 1. Multifocal pneumonias noted throughout both lungs, as described. No CT evidence of pulmonary embolism, effusions or CHF. 2. Few other findings as borderline cardiomegaly and extensive bilateral adrenal hypodense enlargement. Please correlate. Thank you for the opportunity to participate in this patient's care.
[2018-06-20] MEDS: ZITHROMAX 500 MG in NACL 0.9% 250ML 250 ML IV SCH (10:44)
[2018-06-20] MEDS: ROCEPHIN/NS 1 GM/50 ML 1 GM/50 ML BAG IV SCH (10:45)
--- NOTE | 2018-06-20 18:23 | Event Note ---
Date: 06/20/18 Called in Consult to see patient secondary to worsening CXR and CT images compared to admission. Patient is a poor historian who is not very forthcoming with answers in regards to his clinical well being. He appears to be in no distress, not on oxygen. He is able to move around the room with distress but per him he has not really left the room since admission. Given the degree of dyspnea he had on yesterday and the change in his CXR and CT a bronch would not be unreasonable to rule out some form of atypical infection vs aspiration. Edema is on the differential but the distribution would be very abnormal. I offered the patient bronchoscopy and he has refused stating that he needs to go home as he lives alone and has business to attend to. I explained to him that I would not feel comfortable with discharging him until he knew he was close to 80-85% of his baseline which he has not tested himself at. I discussed this with the primary physician who is also in agreement with me. Will sign off. If patient elects to stay and does not leave AMA, will attempt to schedule for bronch if he is willing to do so. Would also consider repeat CXR after lasix was given yesterday and per the primary, he has had improvement compared to yesterday.
--- NOTE | 2018-06-20 18:31 | Progress Note ---
Assessment and Plan Assessment and plan: --Multilobar pneumonia; community-acquired Worsening pneumonia since yesterday, continue IV Rocephin and Zithromax Nebulizers, supportive care, follow cultures Pulmonary evaluation and recommendations noted and appreciated Discussed with Dr. Rousseau ,Recommend bronchoscopy --New onset mild systolic congestive heart failure; IV diuretics, supportive care, cardiology evaluated the patient, echo EF 40-45% --Morbid obesity; BMI 38.5 Counseling weight reduction and medically stable --DVT prophylaxisp; Lovenox Closely monitor the patient and adjust the management as needed Patient is not willing to stay and wants to leave AMA Risks and consequences and complications of leaving AMA discussed with the patient, patient verbalizes understanding History Interval history: Patient seen and examined medical records reviewed Patient feels slightly better, continues to have shortness of breath and cough Patient wants to go home Alert awake oriented 3 Vital signs noted Hospitalist Physical - Constitutional Vitals: Temp Pulse Resp BP Pulse Ox 98.2 F 107 H 20 139/95 96 06/20/18 16:59 06/20/18 16:59 06/20/18 16:59 06/20/18 16:59 06/20/18 16:59 General appearance: Present: no acute distress, well-nourished, obese (morbidly obese) - EENT Eyes: Present: PERRL, EOM intact - Neck Neck: Present: supple, normal ROM - Respiratory Respiratory effort: labored Respiratory: bilateral: diminished, rhonchi, negative: rales, wheezing - Cardiovascular Rhythm: regular Heart Sounds: Present: S1 & S2 - Extremities Extremities: no ischemia, No edema - Abdominal General gastrointestinal: soft, non-tender, non-distended, normal bowel sounds - Integumentary Integumentary: Present: clear, warm - Psychiatric Psychiatric: appropriate mood/affect, cooperative - Neurologic Neurologic: CNII-XII intact, moves all extremities Results - Labs CBC & Chem 7: 06/20/18 07:00 06/19/18 05:38 Labs: Laboratory Last Values WBC 7.0 K/mm3 (4.5-11.0) 06/20/18 07:00 RBC 4.98 M/mm3 (3.65-5.03) 06/20/18 07:00 Hgb 15.9 gm/dl (11.8-15.2) H 06/20/18 07:00 Hct 48.5 % (35.5-45.6) H 06/20/18 07:00 MCV 97 fl (84-94) H 06/20/18 07:00 MCH 32 pg (28-32) 06/20/18 07:00 MCHC 33 % (32-34) 06/20/18 07:00 RDW 16.3 % (13.2-15.2) H 06/20/18 07:00 Plt Count 193 K/mm3 (140-440) 06/20/18 07:00 Lymph % (Auto) 7.3 % (13.4-35.0) L 06/20/18 07:00 [place] % (Auto) 11.8 % (0.0-7.3) H 06/20/18 07:00 Eos % (Auto) 0.4 % (0.0-4.3) 06/20/18 07:00 Baso % (Auto) 0.3 % (0.0-1.8) 06/20/18 07:00 Lymph # 0.5 K/mm3 (1.2-5.4) L 06/20/18 07:00 [place] # 0.8 K/mm3 (0.0-0.8) 06/20/18 07:00 Eos # 0.0 K/mm3 (0.0-0.4) 06/20/18 07:00 Baso # 0.0 K/mm3 (0.0-0.1) 06/20/18 07:00 Add Manual Diff Complete 06/17/18 04:47 Total Counted 100 06/17/18 04:47 Seg Neutrophils % 80.2 % (40.0-70.0) H 06/20/18 07:00 Seg Neuts % (Manual) 99.0 % (40.0-70.0) H 06/17/18 04:47 Band Neutrophils % 0 % 06/17/18 04:47 Lymphocytes % (Manual) 0 % (13.4-35.0) L 06/17/18 04:47 Reactive Lymphs % (Man) 0 % 06/17/18 04:47 Monocytes % (Manual) 1.0 % (0.0-7.3) 06/17/18 04:47 Eosinophils % (Manual) 0 % (0.0-4.3) 06/17/18 04:47 Basophils % (Manual) 0 % (0.0-1.8) 06/17/18 04:47 Metamyelocytes % 0 % 06/17/18 04:47 Myelocytes % 0 % 06/17/18 04:47 Promyelocytes % 0 % 06/17/18 04:47 Blast Cells % 0 % 06/17/18 04:47 Nucleated RBC % Not Reportable 06/17/18 04:47 Seg Neutrophils # 5.6 K/mm3 (1.8-7.7) 06/20/18 07:00 Seg Neutrophils # Man 13.3 K/mm3 (1.8-7.7) H 06/17/18 04:47 Band Neutrophils # 0.0 K/mm3 06/17/18 04:47 Lymphocytes # (Manual) 0.0 K/mm3 (1.2-5.4) L 06/17/18 04:47 Abs React Lymphs (Man) 0.0 K/mm3 06/17/18 04:47 Monocytes # (Manual) 0.1 K/mm3 (0.0-0.8) 06/17/18 04:47 Eosinophils # (Manual) 0.0 K/mm3 (0.0-0.4) 06/17/18 04:47 Basophils # (Manual) 0.0 K/mm3 (0.0-0.1) 06/17/18 04:47 Metamyelocytes # 0.0 K/mm3 06/17/18 04:47 Myelocytes # 0.0 K/mm3 06/17/18 04:47 Promyelocytes # 0.0 K/mm3 06/17/18 04:47 Blast Cells # 0.0 K/mm3 06/17/18 04:47 WBC Morphology Not Reportable 06/17/18 04:47 Hypersegmented Neuts Not Reportable 06/17/18 04:47 Hyposegmented Neuts Not Reportable 06/17/18 04:47 Hypogranular Neuts Not Reportable 06/17/18 04:47 Hypersegmented Polys TNR 06/16/18 18:48 Smudge Cells Not Reportable 06/17/18 04:47 Toxic Granulation Not Reportable 06/17/18 04:47 Toxic Vacuolation Not Reportable 06/17/18 04:47 Dohle Bodies Not Reportable 06/17/18 04:47 Pelger-Huet Anomaly Not Reportable 06/17/18 04:47 Nadya Rods Not Reportable 06/17/18 04:47 Platelet Estimate Consistent w auto 06/17/18 04:47 Clumped Platelets Few 06/17/18 04:47 Plt Clumps, EDTA Not Reportable 06/17/18 04:47 Large Platelets Few 06/17/18 04:47 Giant Platelets Not Reportable 06/17/18 04:47 Platelet Satelliting Not Reportable 06/17/18 04:47 Plt Morphology Comment Not Reportable 06/17/18 04:47 RBC Morphology Not Reportable 06/17/18 04:47 Dimorphic RBCs Not Reportable 06/17/18 04:47 Polychromasia Few 06/17/18 04:47 Hypochromasia Not Reportable 06/17/18 04:47 Poikilocytosis Not Reportable 06/17/18 04:47 Basophilic Stippling TNR 06/16/18 18:48 Anisocytosis Not Reportable 06/17/18 04:47 Microcytosis Not Reportable 06/17/18 04:47 Macrocytosis Not Reportable 06/17/18 04:47 Spherocytes Not Reportable 06/17/18 04:47 Pappenheimer Bodies Not Reportable 06/17/18 04:47 Sickle Cells Not Reportable 06/17/18 04:47 Target Cells Not Reportable 06/17/18 04:47 Tear Drop Cells Not Reportable 06/17/18 04:47 Ovalocytes Not Reportable 06/17/18 04:47 Stomatocytes TNR 06/16/18 18:48 Helmet Cells Not Reportable 06/17/18 04:47 [place] Bodies Not Reportable 06/17/18 04:47 [place] Rings Not Reportable 06/17/18 04:47 Yan Cells Not Reportable 06/17/18 04:47 Bite Cells Not Reportable 06/17/18 04:47 Crenated Cell Not Reportable 06/17/18 04:47 Elliptocytes Not Reportable 06/17/18 04:47 Acanthocytes (Spur) Not Reportable 06/17/18 04:47 Rouleaux Not Reportable 06/17/18 04:47 Hemoglobin C Crystals Not Reportable 06/17/18 04:47 Schistocytes Not Reportable 06/17/18 04:47 Malaria parasites Not Reportable 06/17/18 04:47 Louie Bodies Not Reportable 06/17/18 04:47 Hem Pathologist Commnt No 06/17/18 04:47 VBG pH 7.442 (7.320-7.420) H 06/16/18 20:52 Sodium 143 mmol/L (137-145) 06/19/18 05:38 Potassium 3.9 mmol/L (3.6-5.0) 06/19/18 05:38 Chloride 103.3 mmol/L (98-107) 06/19/18 05:38 Carbon Dioxide 26 mmol/L (22-30) 06/19/18 05:38 Anion Gap 18 mmol/L 06/19/18 05:38 BUN 12 mg/dL (9-20) 06/19/18 05:38 Creatinine 0.8 mg/dL (0.8-1.5) 06/19/18 05:38 Estimated GFR > 60 ml/min 06/19/18 05:38 BUN/Creatinine Ratio 15 % 06/19/18 05:38 Glucose 119 mg/dL (75-100) H 06/19/18 05:38 Lactic Acid 1.60 mmol/L (0.7-2.0) 06/16/18 20:52 Calcium 8.8 mg/dL (8.4-10.2) 06/19/18 05:38 Magnesium 1.90 mg/dL (1.7-2.3) 06/16/18 21:01 Total Bilirubin 0.50 mg/dL (0.1-1.2) 06/18/18 04:30 AST 29 units/L (5-40) 06/18/18 04:30 ALT 52 units/L (7-56) 06/18/18 04:30 Alkaline Phosphatase 70 units/L (35-129) 06/18/18 04:30 Total Creatine Kinase 361 units/L (55-170) H 06/17/18 04:47 CK-MB (CK-2) 8.2 ng/mL (0.0-4.0) H 06/17/18 04:47 CK-MB (CK-2) Rel Index 2.4 (0-4) 06/16/18 23:37 Troponin T 0.019 ng/mL (0.00-0.029) 06/17/18 12:43 NT-Pro-B Natriuret Pep 4643 pg/mL (0-450) H 06/16/18 20:52 Total Protein 6.4 g/dL (6.3-8.2) 06/18/18 04:30 Albumin 3.7 g/dL (3.9-5) L 06/18/18 04:30 Albumin/Globulin Ratio 1.4 % 06/18/18 04:30 Triglycerides 124 mg/dL (2-149) 06/16/18 18:41 Cholesterol 175 mg/dL (50-199) 06/16/18 18:41 LDL Cholesterol Direct 106 mg/dL (50-130) 06/16/18 18:41 HDL Cholesterol 60 mg/dL (40-59) H 06/16/18 18:41 Cholesterol/HDL Ratio 2.91 % 06/16/18 18:41 Urine Color Straw (Yellow) 06/16/18 23:30 Urine Turbidity Clear (Clear) 06/16/18 23:30 Urine pH 7.0 (5.0-7.0) 06/16/18 23:30 Ur Specific [place] 1.008 (1.003-1.030) 06/16/18 23:30 Urine Protein 30 mg/dl mg/dL (Negative) 06/16/18 23:30 Urine Glucose (UA) Neg mg/dL (Negative) 06/16/18 23:30 Urine Ketones Neg mg/dL (Negative) 06/16/18 23:30 Urine Blood Sm (Negative) 06/16/18 23:30 Urine Nitrite Neg (Negative) 06/16/18 23:30 Urine Bilirubin Neg (Negative) 06/16/18 23:30 Urine Urobilinogen < 2.0 mg/dL (<2.0) 06/16/18 23:30 Ur Leukocyte Esterase Neg (Negative) 06/16/18 23:30 Urine WBC (Auto) < 1.0 /HPF (0.0-6.0) 06/16/18 23:30 Urine RBC (Auto) 1.0 /HPF (0.0-6.0) 06/16/18 23:30 Urine Mucus Few /HPF 06/16/18 23:30
--- NOTE | 2018-06-21 08:43 | XRay Report ---
CHEST 2 VIEWS INDICATION: Followup pneumonia. COMPARISON: 06/19/2018 FINDINGS: Frontal and lateral chest radiographs demonstrate stable exaggerated cardiomediastinal silhouette. No pleural effusions or overt CHF. Bilateral airspace opacities again noted, slightly tie carrier/improved on the right while slightly denser/worse in the left upper lobe. EKG leads. Stable bones. CONCLUSION: Interval variation in bilateral airspace opacities/pneumonias, as described. Thank you for the opportunity to participate in this patient's care.
--- NOTE | 2018-06-21 09:04 | Event Note ---
Date: 06/21/18 Patient on my list this am. Called to the floor to speak with the nurse. Per nurse patient states that he will "do what he has to do to get out of here". Specifically asked about bronch and he was ok. Patient has not eaten. Currently on the schedule as the next case, should happen this am. Will perform bronch with washing of upper lobes. While waiting, repeat CXR to see if the infiltrates improved with lasix therapy or not. If improved, will likely cancel bronch. CXR ordered stat.
[2018-06-21] MEDS ORDERED: XYLOCAINE 2% INFILTRATI ONE (09:46)
[2018-06-21] MEDS ORDERED: DILAUDID ONE (09:46)
[2018-06-21] MEDS ORDERED: VERSED ONE (09:46)
[2018-06-21] MEDS ORDERED: DIPRIVAN 10 MG/ML IV ONE ×2 (09:47→10:01)
[2018-06-21] MEDS ORDERED: XYLOCAINE 1% 20 mL ONE (09:53)
[2018-06-21] MEDS ORDERED: LIDOCAINE VISCOUS 2% ONE (09:54)
[2018-06-21] MEDS ORDERED: WATER FOR IRRIG STERILE IR ONE (09:54)
[2018-06-21] MEDS ORDERED: NACL 0.9% 1000 ML 1,000 ML IV SCH (10:00)
[2018-06-21] MEDS: ROCEPHIN/NS 1 GM/50 ML 1 GM/50 ML BAG IV SCH (11:20)
[2018-06-21] MEDS: LOVENOX SUB-Q SCH (11:21)
[2018-06-21] MEDS: NORVASC PO SCH (11:21)
[2018-06-21] MEDS: LASIX IV SCH (11:21)
[2018-06-21] MEDS: LOPRESSOR PO SCH (11:23)
[2018-06-21] MEDS: ZITHROMAX 500 MG in NACL 0.9% 250ML 250 ML IV SCH (11:23)
[2018-06-21] MEDS: SODIUM CHLORIDE FLUSH SYRINGE 10 ML IV SCH (11:24)
--- NOTE | 2018-06-21 11:29 | Procedure Note ---
Date of procedure: 06/21/18 Pre-op diagnosis: Pneumonia Post-op diagnosis: same Procedure: Flexible Bronch/Airway inspection After obtaining informed consent, patient taken to endoscopy and prepped. Nares anesthestized using lidocaine. oxygen administered. Scoped passed through right nare without difficulty. Cords visualized with good AB and AD duction. Lidocainex 2 administered. Scoped passed into trachea, lidocaine administered. Passed down to rikki and lidocaine given in left and right mainstem bronchi. Airway inspection revealed normal anatomy on left and right side. No secretions. No samples taken. Scope retracted and patient sent to recovery. Tolerated well with no immediate post-op complications. Anesthesia: MAC Surgeon: MAREK FAROOQ Estimated blood loss: none Pathology: none Condition: stable Disposition: floor
--- NOTE | 2018-06-21 11:31 | Event Note ---
Date: 06/21/18 Normal airway inspection, no thick copious secretions. From a pulm standpoint, stable for discharge. Would finish a total of 10 days of abx. Needs lasix at discharge.
--- NOTE | 2018-06-21 12:08 | XRay Report ---
PORTABLE CHEST INDICATION: Hypoxemia. COMPARISON: 8:27 AM earlier today. FINDINGS: Portable, frontal chest radiograph, 11:32 AM, 06/21/2018 demonstrates no significant interval change in bilateral, predominantly upper lung airspace opacities, cardiomediastinal silhouette and osseous structures. Right hemidiaphragm slightly elevated. CONCLUSION: No significant interval change in bilateral air space opacities/pneumonias, as described. Thank you for the opportunity to participate in this patient's care.
[2018-06-21] MEDS: CLARITIN-D 24HR PO SCH (12:35)
--- NOTE | 2018-06-21 15:09 | Discharge Summary ---
Providers - Providers Date of Admission: 06/16/18 22:42 Date of discharge: 06/21/18 Attending physician: QIAN MERRITT 06/20/18 07:59 Consult to Physician [CONS] Routine Comment: Consulting Provider: JOSEF ARTHUR Physician Instructions: Reason For Exam: worsening pneumonia Primary care physician: MANAGER CAFE Hospitalization Reason for admission: worsening shortness of breath Condition: Stable Disposition: DC-01 TO HOME OR SELFCARE Time spent for discharge: 32 min Core Measure Documentation - Palliative Care Palliative Care/ Comfort Measures: Not Applicable - Core Measures Any of the following diagnoses?: heart failure - Heart Failure Discharge Requirements JUSTO/ARB for LVSD if EF <40%: Not Applicable (EF 40%) Beta vinicius at discharge: Yes Exam - Constitutional Vitals: Temp Pulse Resp BP Pulse Ox 98.0 F 101 H 20 143/108 94 06/21/18 11:58 06/21/18 11:58 06/21/18 11:58 06/21/18 11:58 06/21/18 11:58 General appearance: Present: no acute distress, well-nourished, obese - EENT Eyes: Present: PERRL, EOM intact - Neck Neck: Present: supple, normal ROM - Respiratory Respiratory effort: normal Respiratory: bilateral: diminished, rhonchi (scanty), negative: rales, wheezing - Cardiovascular Rhythm: regular Heart Sounds: Present: S1 & S2 - Extremities Extremities: no ischemia, No edema - Abdominal General gastrointestinal: Present: soft, non-tender, non-distended, normal bowel sounds - Integumentary Integumentary: Present: clear, warm - Musculoskeletal Musculoskeletal: strength equal bilaterally - Psychiatric Psychiatric: appropriate mood/affect, cooperative - Neurologic Neurologic: CNII-XII intact, moves all extremities Plan Activity: advance as tolerated Diet: low salt Special Instructions: smoking cessation Additional Instructions: History of chest pain or shortness of breath contact M.D. or go to emergency room. Advised to follow PMD at [facility] in 1 week. Advised 5 days work excuse Follow up with: RACHEL GONZALEZ MD [Primary Care Provider] - 3-5 Days AMREK FAROOQ MD [Staff Physician] - 7 Days GUANACO VERDE MD [Staff Physician] - 7 Days Prescriptions: amLODIPine [Norvasc] 10 mg PO QDAY #30 tablet Furosemide [Lasix TAB] 40 mg PO QDAY #30 tablet guaiFENesin DM [Guaifenesin Dm Syrup] 10 ml PO Q4H PRN 10 Days oral.liqd PRN Reason: Cough levoFLOXacin [Levaquin] 750 mg PO QDAY #5 tablet Metoprolol [Lopressor TAB] 25 mg PO BID #60 tablet Potassium Chloride 10 meq PO QDAY #30 capsule.er
[2018-06-21 16:25] VITALS: BP 119/82
== END 2018-06-21 16:45 | disposition home or self-care (01) | DRG 193 ==
LOC: ED 17:58 → 4A 22:42
PROVIDERS: ADMIT Internal Medicine; ATTEND Internal Medicine
PROC: 3E02340 Introduction of Influenza Vaccine into Muscle, Percutaneous Approach (ICD-10-PCS; principal; 2018-06-17)
PROC: 3E0234Z Introduction of Serum, Toxoid and Vaccine into Muscle, Percutaneous Approach (ICD-10-PCS; 2018-06-17)
PROC: 0BJ08ZZ Inspection of Tracheobronchial Tree, Via Natural or Artificial Opening Endoscopic (ICD-10-PCS; 2018-06-21)
DX: J18.9 Pneumonia, unspecified organism (principal); I50.23 Acute on chronic systolic (congestive) heart failure; I47.2 Ventricular tachycardia; J20.9 Acute bronchitis, unspecified; I11.0 Hypertensive heart disease with heart failure; F17.210 Nicotine dependence, cigarettes, uncomplicated; E87.6 Hypokalemia; R09.1 Pleurisy; F10.10 Alcohol abuse, uncomplicated; I27.20 Pulmonary hypertension, unspecified; I07.1 Rheumatic tricuspid insufficiency; E66.01 Morbid (severe) obesity due to excess calories; Z91.14 Patient's other noncompliance with medication regimen; Z79.899 Other long term (current) drug therapy; Z68.38 Body mass index [BMI] 38.0-38.9, adult; Z23 Encounter for immunization
CPT/HCPCS: 36415; 71045; 71046; 71275; 80048; 80053; 80061; 81001; 82140; 82550; 82553; 82805; 83735; 83880; 84484; 85007; 85025; 87040; 87086; 90686; 90732; 93005; 93010; 93306; 94640; 94760; 96365; 96366; 96367; 96368; 99406; J0360; J0456; J0696; J1170; J1650; J1940; J2250; J2704; J2930; J7030; J7050; Q9967

== ENCOUNTER 2019-05-23 17:36 | Inpatient (IN) | payer SELFPAY ==
--- NOTE | 2019-05-23 18:14 | Event Note ---
ED Screening Note Date of service: 05/23/19 Time: 18:12 ED Screening Note: This is a 39 y.o. M. that presents to the ER with cough and SOB for 1 day. Denies asthma, fever, chills, n/v, myalgia, or abdominal pain PMH HTN Denies chest pain, edema, and palpitations Current smoker This initial assessment/diagnostic orders/clinical plan/treatment(s) is/are subject to change based on patients health status, clinical progression and re- assessment by fellow clinical providers in the ED. Further treatment and workup at subsequent clinical providers discretion. Patient/guardian urged not to elope from the ED as their condition may be serious if not clinically assessed and managed. Initial orders include: CXR, EKG, and labs
--- NOTE | 2019-05-23 18:34 | XRay Report ---
CHEST 2 VIEWS INDICATION / CLINICAL INFORMATION: cough and SOB. COMPARISON: None available. FINDINGS: SUPPORT DEVICES: None. HEART / MEDIASTINUM: Borderline-enlarged. LUNGS / PLEURA: Moderate bilateral pulmonary edema with minimal pleural effusions Signer Name: Jason Workman MD Signed: 05/23/2019 6:30 PM Workstation Name: [id number]
--- NOTE | 2019-05-23 19:56 | Emergency Department Report ---
ED General Adult HPI - General Chief complaint: Dyspnea/Respdistress Stated complaint: MAYTE Time Seen by Provider: 05/23/19 18:12 Source: patient, RN notes reviewed, old records reviewed Mode of arrival: Ambulatory Limitations: Physical Limitation - History of Present Illness Initial comments: This is a 39-year-old gentleman. This patient is not known to this provider previously. Patient has a past medical history of obesity, congestive heart failure, ejection fraction 40-45%. Admitted to this hospital last year for multilobar pneumonia. The patient does not use electronic cigarettes and he does not vape, by his history He does not use a CPAP machine, and does not have a history of sleep apnea that he is aware of. However, he does endorse snoring at night, and sensation of feeling incompletely rested after a night's sleep. He presents to the ER today with complaint of painless shortness of breath, lower extremity swelling, malaise and fatigue. He does not have any new onset orthopnea. He denies DVT, pulmonary embolism risk factors. Shortness of breath is constant, worsens with physical exertion, decreases with rest, decreases with physician, increases when laying flat. He has abdominal distention. He has lower extremity swelling. -: Gradual, days(s) Location: left, right, lower extremity Consistency: other Improves with: other Worsens with: other Associated Symptoms: shortness of breath, weakness - Related Data Previous Rx's Medication Instructions Recorded Last Taken Type Ibuprofen [Motrin 800 MG tab] 800 mg PO Q8HR PRN #30 tablet 08/04/17 Unknown Rx Furosemide [Lasix TAB] 40 mg PO QDAY #30 tablet 06/21/18 Unknown Rx Lisinopril [Prinivil] 10 mg PO DAILY #30 tablet 06/21/18 Unknown Rx Metoprolol [Lopressor TAB] 25 mg PO BID #60 tablet 06/21/18 Unknown Rx Potassium Chloride 10 meq PO QDAY #30 capsule.er 06/21/18 Unknown Rx guaiFENesin DM [Guaifenesin Dm 10 ml PO Q4H PRN 10 Days oral.liqd 06/21/18 Unkn own Rx Syrup] levoFLOXacin [Levaquin] 750 mg PO QDAY #5 tablet 06/21/18 Unknown Rx Allergies Allergy/AdvReac Type Severity Reaction Status Date / Time No Known Allergies Allergy Verified 06/16/18 18:08 ED Review of Systems ROS: Stated complaint: MAYTE Other details as noted in HPI Constitutional: malaise, weakness. denies: fever Eyes: denies: eye discharge ENT: congestion Respiratory: shortness of breath Cardiovascular: dyspnea on exertion, edema. denies: chest pain Genitourinary: denies: urgency, dysuria Musculoskeletal: myalgia Skin: denies: lesions Neurological: weakness Hematological/Lymphatic: denies: easy bleeding ED Past Medical Hx - Past Medical History Previous Medical History?: Yes Hx Hypertension: Yes Hx Congestive Heart Failure: No Hx Diabetes: No Hx Asthma: No Hx COPD: No - Surgical History Past Surgical History?: Yes Additional Surgical History: Hernia repair - Social History Smoking Status: Never Smoker Substance Use Type: None - Medications Home Medications: Home Medications Medication Instructions Recorded Confirmed Last Taken Type Ibuprofen [Motrin 800 MG tab] 800 mg PO Q8HR PRN #30 tablet 08/04/17 06/19/18 Unknown Rx Furosemide [Lasix TAB] 40 mg PO QDAY #30 tablet 06/21/18 Unknown Rx Lisinopril [Prinivil] 10 mg PO DAILY #30 tablet 06/21/18 Unknown Rx Metoprolol [Lopressor TAB] 25 mg PO BID #60 tablet 06/21/18 Unknown Rx Potassium Chloride 10 meq PO QDAY #30 capsule.er 06/21/18 Unknown Rx guaiFENesin DM [Guaifenesin Dm 10 ml PO Q4H PRN 10 Days oral.liqd 06/21/18 Unknown Rx Syrup] levoFLOXacin [Levaquin] 750 mg PO QDAY #5 tablet 06/21/18 Unknown Rx ED Physical Exam - General Limitations: No Limitations General appearance: alert, in distress, obese - Head Head exam: Present: atraumatic, normocephalic - Eye Eye exam: Present: normal appearance, EOMI. Absent: nystagmus - ENT ENT exam: Present: normal exam, normal orophraynx, mucous membranes moist - Neck Neck exam: Present: normal inspection, full ROM. Absent: tenderness, meningismus - Respiratory Respiratory exam: Present: respiratory distress, rales - Cardiovascular Cardiovascular Exam: Present: normal rhythm, tachycardia, JVD. Absent: bradycardia, irregular rhythm, systolic murmur, diastolic murmur, rubs, gallop - GI/Abdominal GI/Abdominal exam: Present: soft, distended. Absent: tenderness, guarding, rebound, rigid, pulsatile mass - Rectal Rectal exam: Present: deferred - Extremities Exam Extremities exam: Present: normal inspection, full ROM, pedal edema (3+ edema in the bilateral lower extremity), other (2+ pulses noted in the bilateral upper, lower extremities. There is no long bone tenderness. Musculoskeletal compartments are soft. The pelvis is stable.). Absent: calf tenderness - Back Exam Back exam: Present: normal inspection, full ROM. Absent: tenderness, CVA tenderness (R), CVA tenderness (L), paraspinal tenderness, vertebral tenderness - Neurological Exam Neurological exam: Present: alert, oriented X3, other (there is no facial droop. The tongue is midline. Extraocular movements are intact bilaterally. Patient speaking in full complete sentences. Shoulder shrug is intact bilaterally. Hearing is grossly intact bilaterally. Visual acuity intact to finger counting and color perception at a close distance. 5/5 strength 4 extremities. Sensation intact to light touch in 4 extremities.). Absent: motor sensory deficit - Psychiatric Psychiatric exam: Present: normal affect, normal mood - Skin Skin exam: Present: warm, dry, intact, normal color. Absent: rash ED Course Vital Signs 05/23/19 05/23/19 05/23/19 18:12 19:56 20:08 Temperature 98.7 F Pulse Rate 114 H 92 H Respiratory 16 25 H Rate Blood Pressure 170/116 [Left] O2 Sat by Pulse 91 96 Oximetry 05/23/19 05/23/19 05/23/19 20:41 20:45 21:34 Temperature Pulse Rate 103 H 98 H Respiratory 25 H Rate Blood Pressure [Left] O2 Sat by Pulse 100 100 Oximetry - Reevaluation(s) Reevaluation #1: 05/23/19 21:11 Differential diagnosis, including but not limited to: Pulmonary hypertension, congestive heart failure, right-sided heart failure, pneumonia Assessment and plan: 39-year-old gentleman with hypoxia, obesity, JVD, lower extremity edema, crackles, rales, likely undiagnosed sleep apnea, likely prese nting with right-sided heart failure, pulmonary hypertension, congestive heart failure. Patient placed on BiPAP, which markedly improved his symptoms. He denies DVT, pulmonary embolus risk factors. Nitroglycerin also ordered for symptom control. Appropriate screening laboratory studies ordered. Patient counseled that he'll need to be admitted to the medical service for medication optimization. We also discussed the need for outpatient sleep testing once he's been optimized. He verbalizes understanding. We also discussed the need for weight loss, diet, and lifestyle modifications Reevaluation #2: 05/23/19 21:49 The patient is reassessed. He feels improved. Laboratory studies suggest elevated BNP, elevated troponin, likely type II troponin leak, likely secondary to congestive heart failure, transaminitis, likely secondary to congestive hepatopathy. At this time he is sleeping on stretcher, but arousable, not somnolent, and states he feels markedly improved. He is amenable to hospitalization. Case is presented to Hospital nurse practitioner, Uche Chan, who accepted the patient to the medical service. ED Medical Decision Making - Lab Data Result diagrams: 05/23/19 20:29 05/23/19 20:29 Vital Signs 05/23/19 18:12 Temperature 98.7 F Pulse Rate 114 H Respiratory 16 Rate Blood Pressure 170/116 [Left] O2 Sat by Pulse 91 Oximetry - EKG Data -: EKG Interpreted by De EKG shows normal: sinus rhythm Rate: normal - EKG Data 05/23/19 21:12 The EKG shows sinus tachycardia, 100 bpm, normal axis, left ventricular hypertrophy, atrial enlargement, motion artifact, QTC is prolonged, no endorsement of chest pain, EKG is abnormal, it is not consistent with ST elevation myocardial infarction. - Radiology Data Radiology results: report reviewed, image reviewed Print Report Referring Physician: MANUELA LUTHER Patient Name: MYRIAM MELARA Date of : 1980 Sex: Male Report Date: 2019-05-23 Report Status: Finalized Findings [facility] [address] [place] [address] XRay Report Signed Patient: MYRIAM MELARA MR#: [id number] : 1980 Acct:[id number] Age/Sex: 39 / M ADM Date: 05/23/19 Loc: ED Attending Dr: Ordering Physician: HILDA FOOTE Date of Service: 05/23/19 Procedure(s): XR chest routine 2V Accession Number(s): [id number] cc: HILDA FOOTE Fluoro Time In Minutes: CHEST 2 VIEWS INDICATION / CLINICAL INFORMATION: cough and SOB. COMPARISON: None available. FINDINGS: SUPPORT DEVICES: None. HEART / MEDIASTINUM: Borderline-enlarged. LUNGS / PLEURA: Moderate bilateral pulmonary edema with minimal pleural effusions Signer Name: Jason Workman MD Signed: 05/23/2019 6:30 PM Workstation Name: [id number] Transcribed By: BC Dictated By: Jason Workamn MD Electronically Authenticated By: Jason Workman MD Signed Date/Time: 05/23/19 1830 Critical Care Time: Yes Critical care time in (mins) excluding proc time.: 35 Critical care attestation.: If time is entered above; I have spent that time in minutes in the direct care of this critically ill patient, excluding procedure time. ED Disposition Clinical Impression: Obesity Qualifiers: Obesity type: unspecified obesity type Serious obesity comorbidity presence: unspecified whether serious comorbidity present Acute heart failure Qualifiers: Heart failure type: unspecified Qualified Code(s): I50.9 - Heart failure, unspecified Disposition: DC-09 OP ADMIT IP TO THIS HOSP Is pt being admited?: Yes Does the pt Need Aspirin: Yes Condition: Stable Referrals: PRIMARY CARE, [Primary Care Provider] - 3-5 Days
[2019-05-23] MEDS ORDERED: NITROGLYCERIN 0.4 MG TAB SUBL SL ONE (20:06)
[2019-05-23 20:54] LABS: Basophils % (Auto) 0.2 % (0.0-1.8); Eosinophils % (Auto) 0.1 % (0.0-4.3); Hematocrit 43.2 % (35.5-45.6); Hemoglobin 14.3 gm/dl (11.8-15.2); Lymphocytes # (Auto) 0.5 K/mm3 (1.2-5.4); Lymphocytes % (Auto) 5.2 % (13.4-35.0); Mean Corpuscular HGB Conc 33 % (32-34); Mean Corpuscular Volume 95 fl (84-94); Monocytes # (Auto) 0.6 K/mm3 (0.0-0.8); Monocytes % (Auto) 6.2 % (0.0-7.3); Platelet Count 202 K/mm3 (140-440); Red Blood Count 4.52 M/mm3 (3.65-5.03); Red Cell Distribution Width 16.3 % (13.2-15.2)
[2019-05-23] MEDS ORDERED: ASPIRIN 81 MG TAB CHEW PO ONE (21:14)
[2019-05-23 21:23] LABS: Alanine Aminotransferase 65 units/L (7-56); Albumin 3.8 g/dL (3.9-5); BUN/Creatinine Ratio 18; Blood Urea Nitrogen 14 mg/dL (9-20); Calcium 8.3 mg/dL (8.4-10.2); Hemolysis Index 3
[2019-05-23] MEDS ORDERED: FUROSEMIDE 40 MG/4 ML INJ IV ONE (21:32)
[2019-05-23] MEDS ORDERED: POTASSIUM CHLORIDE ER 20 MEQ TAB PO ONE (21:32)
[2019-05-23 22:01] LABS: Chol/HDL Ratio 4.23 %
[2019-05-23] MEDS ORDERED: ALBUTEROL 2.5 MG/3 ML NEBU IH PRN (22:19)
[2019-05-23] MEDS ORDERED: NITROGLYCERIN 0.4 MG TAB SUBL SL PRN (22:19)
[2019-05-23] MEDS ORDERED: ACETAMINOPHEN 325 MG TAB PO PRN (22:19)
[2019-05-23] MEDS ORDERED: ONDANSETRON 4 MG/2 ML INJ IV PRN (22:19)
[2019-05-23] MEDS: POTASSIUM CHLORIDE 10 MEQ 10 MEQ/100 ML BAG IV SCH (22:48)
[2019-05-23] MEDS ORDERED: METOPROLOL TARTRATE 25 MG TAB ONE (23:43)
[2019-05-23] MEDS ORDERED: hydrALAZINE 20 MG/1 ML INJ IV ONE (23:49)
--- NOTE | 2019-05-23 23:52 | History and Physical Report ---
History of Present Illness Date of examination: 05/23/19 Date of admission: 05/23/19 22:19 Chief complaint: Difficulty breathing History of present illness: 39-year-old -[place] male who is a former smoker with history of uncontrolled hypertension, pulmonary hypertension, LVH with EF of 40-45%, obesity, EtOH abuse who presents [facility] ED with complaints of difficulty breathing, bilateral lower extremity edema. States that he had an abscess in his mouth which he drained about a week ago. Ever since draining abscess he is been experiencing progressively worsening shortness of breath. His shortness of breath is constant. It is aggravated with physical exertion, and decreases with rest. He also complains of intermittent BLE edema for the past several months. Denies: current tobacco use, ETOH use/abuse, leg pain, PND, orthopnea, cough, sputum production, hemoptysis, fever, or n/v Past History Past Medical History: hypertension (uncontrolled), other (obesity, EtOH abuse) Past Surgical History: Other ( Hernia repair) Social history: lives with family, other (history of EtOH abuse and tobacco abuse) Family history: no significant family history Medications and Allergies Allergies Allergy/AdvReac Type Severity Reaction Status Date / Time No Known Allergies Allergy Verified 06/16/18 18:08 Home Medications Medication Instructions Recorded Confirmed Last Taken Type Ibuprofen [Motrin 800 MG tab] 800 mg PO Q8HR PRN #30 tablet 08/04/17 06/19/18 Unknown Rx Furosemide [Lasix TAB] 40 mg PO QDAY #30 tablet 06/21/18 Unknown Rx Lisinopril [Prinivil] 10 mg PO DAILY #30 tablet 06/21/18 Unknown Rx Metoprolol [Lopressor TAB] 25 mg PO BID #60 tablet 06/21/18 Unknown Rx Potassium Chloride 10 meq PO QDAY #30 capsule.er 06/21/18 Unknown Rx guaiFENesin DM [Guaifenesin Dm 10 ml PO Q4H PRN 10 Days oral.liqd 06/21/18 Unknown Rx Syrup] levoFLOXacin [Levaquin] 750 mg PO QDAY #5 tablet 06/21/18 Unknown Rx Active Meds: Active Medications Acetaminophen (Tylenol) 650 mg PO Q4H PRN PRN Reason: Pain MILD(1-3)/Fever >100.5/YU Albuterol (Proventil) 2.5 mg IH Q3HRT PRN PRN Reason: Shortness Of Breath Aspirin (Baby Aspirin) 81 mg PO QDAY [facility] Docusate Sodium (Colace) 100 mg PO BID [facility] Enoxaparin Sodium (Lovenox) 40 mg SUB-Q QDAY [facility] Furosemide (Lasix) 40 mg IV BID@0600,1800 [facility] Hydralazine HCl (Apresoline) 10 mg IV Q4HR [facility] Potassium Chloride (Kcl 10meq/100ml) 10 meq in 100 mls @ 100 mls/hr IV Q1H AMRITA Stop: 05/24/19 01:59 Last Admin: 05/23/19 22:48 Dose: 100 mls/hr Documented by: Lisinopril (Zestril) 10 mg PO DAILY [facility] Metoprolol Tartrate (Lopressor) 25 mg PO BID [facility] Nitroglycerin (Nitrostat) 0.4 mg SL .Q5MIN PRN PRN Reason: Chest Pain Ondansetron HCl (Zofran) 4 mg IV Q6H PRN PRN Reason: Nausea And Vomiting Oxycodone/Acetaminophen (Percocet 5/325) 1 tab PO Q6H PRN PRN Reason: Pain, Moderate (4-6) Potassium Chloride (K-Dur) 20 meq PO QDAY [facility] Sodium Chloride (Sodium Chloride Flush Syringe 10 Ml) 10 ml IV BID [facility] Sodium Chloride (Sodium Chloride Flush Syringe 10 Ml) 10 ml IV PRN PRN PRN Reason: LINE FLUSH Review of Systems All systems: negative Constitutional: weakness, malaise Cardiovascular: shortness of breath, leg edema Respiratory: shortness of breath, dyspnea on exertion, congestion Musculoskeletal: myalgias Exam - Physical Exam Narrative exam: Physical exam General appearance: Present: Acute distress, alert and oriented 3, well developed, obese, adult -Samo[place] male - EENT Eyes: Present: PERRL, EOM intact, ENT: hearing intact, normal dentition - Neck Neck: Present: supple, normal ROM, JVD - Respiratory Respiratory effort: Labored, on BiPAP Respiratory: Rhonchi - Cardiovascular Heart rate: 100 (bpm) Rhythm: SR, specific T wave abnormalities Heart Sounds: Present: S1, S2 - Extremities Extremities: no ischemia, pulses intact, 3+ bilateral lower extremity edema - Peripheral Assessment Peripheral Pulses: within normal limits - Abdominal General gastrointestinal: mild distention, non-tender, normal bowel sounds - Integumentary Integumentary: Present: warm, dry, - Musculoskeletal Musculoskeletal: Able to move all extremities, -Neurological Neurological: CN II-XII grossly intact - Psychiatric Psychiatric: cooperative - Constitutional Vitals: Temp Pulse Resp BP Pulse Ox 98.7 F 90 25 H 175/130 96 05/23/19 18:12 05/23/19 23:00 05/23/19 23:00 05/23/19 23:00 05/23/19 23:00 Results - Labs CBC & Chem 7: 05/23/19 20:29 05/23/19 20:29 Labs: Laboratory Last Values WBC 10.5 K/mm3 (4.5-11.0) 05/23/19 20: RBC 4.52 M/mm3 (3.65-5.03) 05/23/19 20: Hgb 14.3 gm/dl (11.8-15.2) 05/23/19 20: Hct 43.2 % (35.5-45.6) 05/23/19 20: MCV 95 fl (84-94) H 05/23/19 20:29 MCH 32 pg (28-32) 05/23/19 20: MCHC 33 % (32-34) 05/23/19 20: RDW 16.3 % (13.2-15.2) H 05/23/19 20:29 Plt Count 202 K/mm3 (140-440) 05/23/19 20: Lymph % (Auto) 5.2 % (13.4-35.0) L 05/23/19 20: Turner % (Auto) 6.2 % (0.0-7.3) 05/23/19 20: Eos % (Auto) 0.1 % (0.0-4.3) 05/23/19 20: Baso % (Auto) 0.2 % (0.0-1.8) 05/23/19 20: Lymph # 0.5 K/mm3 (1.2-5.4) L 05/23/19 20: Turner # 0.6 K/mm3 (0.0-0.8) 05/23/19 20: Eos # 0.0 K/mm3 (0.0-0.4) 09/27/19 20:29 Baso # 0.0 K/mm3 (0.0-0.1) 05/23/19 20:29 Seg Neutrophils % 88.3 % (40.0-70.0) H 05/23/19 20:29 Seg Neutrophils # 9.3 K/mm3 (1.8-7.7) H 05/23/19 20:29 Sodium 149 mmol/L (137-145) H 05/23/19 20:29 Potassium 2.9 mmol/L (3.6-5.0) L* 05/23/19 20:29 Chloride 106.2 mmol/L (98-107) 05/23/19 20:29 Carbon Dioxide 26 mmol/L (22-30) 05/23/19 20:29 20 mmol/L 05/23/19 20:29 BUN 14 mg/dL (9-20) 05/23/19 20:29 0.8 mg/dL (0.8-1.5) 05/23/19 20:29 Estimated GFR > 60 ml/min 05/23/19 20:29 18 % 05/23/19 20:29 Glucose 128 mg/dL (75-100) H 05/23/19 20:29 Lactic Acid 1.90 mmol/L (0.7-2.0) 05/23/19 20:29 Calcium 8.3 mg/dL (8.4-10.2) L 05/23/19 20:29 Magnesium 2.10 mg/dL (1.7-2.3) 05/23/19 20:29 0.30 mg/dL (0.1-1.2) 05/23/19 20:29 AST 46 units/L (5-40) H 05/23/19 20:29 ALT 65 units/L (7-56) H 05/23/19 20:29 83 units/L (35-129) 05/23/19 20:29 557 units/L (55-170) H 05/23/19 20:29 0.034 ng/mL (0.00-0.029) H 05/23/19 20:29 NT-Pro-B Natriuret Pep 6644 pg/mL (0-450) H 05/23/19 20:29 6.8 g/dL (6.3-8.2) 05/23/19 20:29 3.8 g/dL (3.9-5) L 05/23/19 20:29 1.3 % 05/23/19 20:29 Triglycerides 141 mg/dL (2-149) 05/23/19 20:29 Cholesterol 165 mg/dL (50-199) 05/23/19 20:29 110 mg/dL (50-130) 05/23/19 20:29 39 mg/dL (40-59) L 05/23/19 20:29 4.23 % 05/23/19 20:29 - Imaging and Cardiology Imaging and Cardiology: CXR: FINDINGS: SUPPORT DEVICES: None. HEART / MEDIASTINUM: Borderline-enlarged. LUNGS / PLEURA: Moderate bilateral pulmonary edema with minimal pleural effusions Assessment and Plan Assessment and plan: 39-year-old -[place] male who is a former smoker with history of uncontrolled hypertension, pulmonary hypertension, LVH with EF of 40-45%, obesity, EtOH abuse who presents [facility] ED with complaints of difficulty breathing, bilateral lower extremity edema. Acute exacerbation CHF -Ejection fraction of 40-45%, mild LVH, mild TR, and pulmonary hypertension seen on Echo done 05/2018 -BNP elevated at 6644 -Troponin slightly elevated at 0.034, we'll continue to trend -CXR shows moderate pulmonary edema -Patient has 3+ bilateral lower extremity edema -Start IV Lasix twice a day -Echo pending -Cardiology consulted Hypertensive urgency -BP on admission 181/127 -Hx uncontrolled Hypertension -Continue to monitor BP -Resume home antihypertensive meds to optimize BP -IV antihypertensive when necessary Acute hypoxic respiratory failure -No Baseline home oxygen requirements -Currently on BiPAP -Monitor saturations -Monitor CO2 -Continue supplemental oxygen wean as tolerated Obesity -BMI 36.5kg -Diet and lifestyle modifications -May benefit from OP weight mgmt program Hypokalemia -2.9 on admission -Repleted -Daily potassium replete while on IV Lasix -Continue to monitor electrolytes, replete prn Elevated liver enzymes -AST 46, ALT 65 -Continue to monitor Suspicion of JUAN JOSÉ -Patient will need outpatient sleep study and follow-up with market specialist DVT PPX -on Lovenox Advance Directives: No VTE prophylaxis?: Chemical Plan of care discussed with patient/family: Yes
[2019-05-23] MEDS: METOPROLOL TARTRATE 25 MG TAB PO SCH (23:53)
[2019-05-24] MEDS ORDERED: hydrALAZINE 20 MG/1 ML INJ ONE (00:02)
[2019-05-24] MEDS ORDERED: hydrALAZINE 20 MG/1 ML INJ IV PRN (00:25)
[2019-05-24] MEDS: POTASSIUM CHLORIDE 10 MEQ 10 MEQ/100 ML BAG IV SCH ×3 (01:49→03:52)
[2019-05-24] MEDS: guaiFENesin ER 600 MG TAB PO SCH ×3 (03:01→22:31)
[2019-05-24] MEDS: hydrALAZINE 20 MG/1 ML INJ IV PRN ×2 (06:00→20:23)
[2019-05-24] MEDS: FUROSEMIDE 40 MG/4 ML INJ IV SCH ×2 (06:00→18:47)
[2019-05-24 08:25] LABS: Basophils % (Auto) 0.1 % (0.0-1.8); Eosinophils % (Auto) 0.1 % (0.0-4.3); Hemoglobin 15.7 gm/dl (11.8-15.2); Lymphocytes # (Auto) 0.5 K/mm3 (1.2-5.4); Lymphocytes % (Auto) 3.2 % (13.4-35.0); Mean Corpuscular HGB Conc 33 % (32-34); Mean Corpuscular Volume 97 fl (84-94); Monocytes % (Auto) 6.6 % (0.0-7.3); Platelet Count 193 K/mm3 (140-440); Red Blood Count 4.83 M/mm3 (3.65-5.03); Red Cell Distribution Width 16.5 % (13.2-15.2)
[2019-05-24 08:51] LABS: BUN/Creatinine Ratio 14; Blood Urea Nitrogen 13 mg/dL (9-20); Calcium 8.4 mg/dL (8.4-10.2); Hemolysis Index 13
[2019-05-24] MEDS ORDERED: LORazepam 2 MG/ML VIAL IV PRN ×2 (09:36)
[2019-05-24] MEDS ORDERED: HALOPERIDOL LACTATE 5 MG/1 ML INJ IV PRN (09:36)
--- NOTE | 2019-05-24 09:39 | Progress Note ---
Assessment and Plan Assessment and plan: Patient is a 39 yo man with history of tobacco dependency, CHF with est EF 40- 45%, Alcohol abuse and hypertension who presented to [facility] ED with cp and sob. About 1 week ago he had abscess drained from his mouth. 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 Follow-up on current diagnosis of CHF. No overnight events reported to me. Patient denies any nausea/vomiting or severe headaches. Imaging, nursing note, chart, labs and old chart reviewed. Discussed with patient. Hospitalist Physical - Physical exam Narrative exam: Gen: WDWN, obese bmi 36.5 NAD, Awake, Alert, Orientated HEENT: NCAT, EOMI, PERRL, OP Clear Neck: supple, no adenopathy, no thyromegaly, equvical JVD CVS/Heart: RRR, normal S1S2, pulses present bilaterally Chest/Lungs: diminished with bilateral crackles, Symmetrical chest expansion, good air entry bilaterally GI/Abdomen: soft, NTND, good bowel sounds, no guarding or rebound /Bladder: no suprapubic tenderness, no CVA or paraspinal tenderness Extermity/Skin: no c/c/e, no obvious rash MSK: FROM x 4 Neuro: CN 2-12 grossly intact, no new focal deficits Psych: calm - Constitutional Vitals: Temp Pulse Resp BP Pulse Ox 99.0 F 100 H 32 H 136/103 95 05/24/19 07:38 05/24/19 07:38 05/24/19 07:38 05/24/19 07:38 05/24/19 09:18 Results - Labs CBC & Chem 7: 05/24/19 07:43 05/24/19 07:43 Labs: Laboratory Last Values WBC 14.4 K/mm3 (4.5-11.0) H 05/24/19 07:43 RBC 4.83 M/mm3 (3.65-5.03) 05/24/19 07:43 Hgb 15.7 gm/dl (11.8-15.2) H 05/24/19 07:43 Hct 47.0 % (35.5-45.6) H 05/24/19 07:43 MCV 97 fl (84-94) H 05/24/19 07:43 MCH 33 pg (28-32) H 05/24/19 07:43 MCHC 33 % (32-34) 05/24/19 07:43 RDW 16.5 % (13.2-15.2) H 05/24/19 07:43 Plt Count 193 K/mm3 (140-440) 05/24/19 07:43 Lymph % (Auto) 3.2 % (13.4-35.0) L 05/24/19 07:43 [place] % (Auto) 6.6 % (0.0-7.3) 05/24/19 07:43 Eos % (Auto) 0.1 % (0.0-4.3) 05/24/19 07:43 Baso % (Auto) 0.1 % (0.0-1.8) 05/24/19 07:43 Lymph # 0.5 K/mm3 (1.2-5.4) L 05/24/19 07:43 [place] # 1.0 K/mm3 (0.0-0.8) H 05/24/19 07:43 Eos # 0.0 K/mm3 (0.0-0.4) 05/24/19 07:43 Baso # 0.0 K/mm3 (0.0-0.1) 05/24/19 07:43 Seg Neutrophils % 90.0 % (40.0-70.0) H 05/24/19 07:43 Seg Neutrophils # 13.0 K/mm3 (1.8-7.7) H 05/24/19 07:43 Sodium 148 mmol/L (137-145) H 05/24/19 07:43 Potassium 3.4 mmol/L (3.6-5.0) L 05/24/19 07:43 Chloride 102.2 mmol/L (98-107) 05/24/19 07:43 Carbon Dioxide 28 mmol/L (22-30) 05/24/19 07:43 21 mmol/L 05/24/19 07:43 BUN 13 mg/dL (9-20) 05/24/19 07:43 0.9 mg/dL (0.8-1.5) 05/24/19 07:43 Estimated GFR > 60 ml/min 05/24/19 07:43 14 % 05/24/19 07:43 Glucose 171 mg/dL (75-100) H 05/24/19 07:43 6.4 % (4-6) H 05/23/19 23:44 Lactic Acid 1.90 mmol/L (0.7-2.0) 05/23/19 20:29 Calcium 8.4 mg/dL (8.4-10.2) 05/24/19 07:43 Magnesium 2.10 mg/dL (1.7-2.3) 05/23/19 20:29 0.30 mg/dL (0.1-1.2) 05/23/19 20:29 AST 46 units/L (5-40) H 05/23/19 20:29 ALT 65 units/L (7-56) H 05/23/19 20:29 83 units/L (35-129) 05/23/19 20:29 557 units/L (55-170) H 05/23/19 20:29 0.038 ng/mL (0.00-0.029) H 05/24/19 07:43 NT-Pro-B Natriuret Pep 6644 pg/mL (0-450) H 05/23/19 20:29 6.8 g/dL (6.3-8.2) 05/23/19 20:29 3.8 g/dL (3.9-5) L 05/23/19 20:29 1.3 % 05/23/19 20:29 Triglycerides 141 mg/dL (2-149) 05/23/19 20:29 Cholesterol 165 mg/dL (50-199) 05/23/19 20:29 110 mg/dL (50-130) 05/23/19 20:29 39 mg/dL (40-59) L 05/23/19 20:29 4.23 % 05/23/19 20:29 Active Medications - Current Medications Current Medications: Generic Name Dose Route Start Last Admin Trade Name Freq PRN Reason Stop Dose Admin Acetaminophen 650 mg 05/23/19 22:19 Tylenol PO Q4H PRN Pain MILD(1-3)/Fever >100.5/YU Albuterol 2.5 mg 05/23/19 22:19 Proventil IH Q3HRT PRN Shortness Of Breath Aspirin 81 mg 05/24/19 10:00 Baby Aspirin PO QDAY [facility] Docusate Sodium 100 mg 05/24/19 10:00 Colace PO BID [facility] Enoxaparin Sodium 40 mg 05/24/19 10:00 Lovenox SUB-Q QDAY [facility] Furosemide 40 mg 05/24/19 06:00 05/24/19 06:00 Lasix IV 40 mg BID@0600,1800 [facility] Administration Guaifenesin 600 mg 05/24/19 03:00 05/24/19 03:01 Mucinex Er PO 600 mg BID [facility] Administration Hydralazine HCl 10 mg 05/23/19 23:56 05/24/19 06:00 Apresoline IV 10 mg Q4HR PRN Administration BP =/> 150/90 Lisinopril 10 mg 05/24/19 10:00 Zestril PO DAILY [facility] Metoprolol Tartrate 25 mg 05/23/19 23:00 05/23/19 23:53 Lopressor PO 25 mg BID AMRITA Administration Nitroglycerin 0.4 mg 05/23/19 22:19 Nitrostat SL .Q5MIN PRN Chest Pain Ondansetron HCl 4 mg 05/23/19 22:19 Zofran IV Q6H PRN Nausea And Vomiting Oxycodone/Acetaminophen 1 tab 05/23/19 22:19 Percocet 5/325 PO Q6H PRN Pain, Moderate (4-6) Potassium Chloride 20 meq 05/24/19 10:00 K-Dur PO QDAY [facility] Sodium Chloride 10 ml 05/24/19 10:00 Sodium Chloride Flush Syringe 10 Ml IV BID AMRITA Sodium Chloride 10 ml 05/23/19 22:19 Sodium Chloride Flush Syringe 10 Ml IV PRN PRN LINE FLUSH
[2019-05-24] MEDS: AMPICILLIN/SULBACTA 1.5GM/50ML 1.5 GM/50 ML BAG IV SCH ×2 (12:00→18:47)
--- NOTE | 2019-05-24 13:36 | Ultrasound Report ---
ULTRASOUND ABDOMEN, LIMITED (RIGHT UPPER QUADRANT) INDICATION: Elevated transaminase. COMPARISON: None available. FINDINGS: PANCREAS: Visualized portion shows no significant abnormality. LIVER: 18.4 cm in length with a normal echo pattern compared to the right renal cortex. No focal lesi on and normal directional blood flow in the main portal vein. GALLBLADDER: No significant abnormality. BILE DUCTS: No significant abnormality. Common bile duct measures 1.2 mm. FREE FLUID: None. ADDITIONAL FINDINGS: There is a subcentimeter simple cyst in the right mid kidney. IMPRESSION: Mild hepatomegaly without other sonographic abnormality of the liver. Signer Name: Lior Espinal MD Signed: 05/24/2019 1:32 PM Workstation Name: [id number]
[2019-05-24] MEDS: POTASSIUM CHLORIDE ER 20 MEQ TAB PO SCH (13:43)
[2019-05-24] MEDS: FOLIC ACID 1 MG TAB PO SCH (13:43)
[2019-05-24] MEDS: DOCUSATE SODIUM 100 MG CAP PO SCH ×2 (13:43→22:31)
[2019-05-24] MEDS: THIAMINE 100 MG TAB PO SCH (13:44)
[2019-05-24] MEDS: ASPIRIN 81 MG TAB CHEW PO SCH (13:44)
[2019-05-24] MEDS: LISINOPRIL 10 MG TAB PO SCH (13:44)
[2019-05-24] MEDS: METOPROLOL TARTRATE 25 MG TAB PO SCH ×2 (13:44→22:31)
[2019-05-24] MEDS: ENOXAPARIN 40 MG/0.4 ML INJ SUB-Q SCH (13:44)
--- NOTE | 2019-05-24 14:38 | Event Note ---
Date: 05/24/19 Cardiology consultation dictated #1 congestive heart failure #2 hypertension #3 overweight Patient is seen for cardiac evaluation. We will review the echocardiogram. Current management will be continued. Thank you Dr. CRZU Reece
[2019-05-25] MEDS: AMPICILLIN/SULBACTA 1.5GM/50ML 1.5 GM/50 ML BAG IV SCH ×5 (01:08→23:29)
--- NOTE | 2019-05-25 05:11 | Consultation ---
CARDIOLOGY CONSULTATION REFERRING PHYSICIAN: Dr. Orozco. HISTORY OF PRESENT ILLNESS: The patient is a 39-year-old gentleman who comes to the Emergency Room with difficulty in breathing that has been going on for about one week, as it has gotten worse, the patient came to the Emergency Room, and he was noted to have congestive heart failure. The patient has been treated with intravenous diuretics and he is doing better today. The patient denies significant chest pain. Known to have hypertension for a long time. No history of hyperlipidemia or diabetes. No prior myocardial infarction. The patient apparently had oral abscess and following the treatment for that, he had more symptoms of difficulty in breathing. REVIEW OF SYSTEMS: HEAD, EYES, EARS, NOSE, AND THROAT: No symptoms. ENDOCRINE: No history of diabetes or thyroid problems. GASTROINTESTINAL: No abdominal pain, nausea, or vomiting. Bowel habits have been regular. GENITOURINARY: No symptoms. CENTRAL NERVOUS SYSTEM: No history of cerebrovascular accident or convulsive disorder. PERSONAL HISTORY: The patient drinks alcohol occasionally, smokes about 4 cigarettes a day. PHYSICAL EXAMINATION: GENERAL: Adult overweight gentleman, in no acute distress. VITAL SIGNS: Blood pressure 136/103, pulse 100, respirations 18. HEAD, EYES, EARS, NOSE AND THROAT: Unremarkable. NECK: Supple. No thyromegaly. Both carotids are palpable and equal. CHEST: Symmetrical. LUNGS: Bilateral basilar rales are present. HEART: S1 and S2 are heard well. Heart tones are distant. ABDOMEN: Obese, nontender. No hepatosplenomegaly. EXTREMITIES: Trace edema is present. IMAGING DATA: Chest x-ray, congestive heart failure. EKG shows sinus rhythm, left ventricular hypertrophy, nonspecific ST changes. LABORATORY DATA: WBC 14.4, hemoglobin 15.7, hematocrit 47. Sodium 148, potassium 3.4, BNP 6644, troponin 0.038 and 0.046, BUN 14, creatinine 0.8, blood sugar 171, LDL 110, HDL 39, total cholesterol 165. IMPRESSION: 1. Congestive heart failure. 2. Hypertension. 3. Hypokalemia. The patient is seen for cardiac evaluation because of congestive heart failure. The patient apparently had an echocardiogram done and this will be evaluated. Agree with current management, and the patient is getting better gradually. The patient will be monitored and followed closely with you. Thank you for allowing me to participate in the care of this pleasant gentleman. JOB# [id number] JUSTINM/NTS
[2019-05-25 06:06] LABS: Hematocrit 43.5 % (35.5-45.6); Hemoglobin 14.6 gm/dl (11.8-15.2); Mean Corpuscular HGB Conc 34 % (32-34); Mean Corpuscular Volume 97 fl (84-94); Platelet Count 184 K/mm3 (140-440); Red Cell Distribution Width 16.2 % (13.2-15.2)
[2019-05-25 06:18] LABS: BUN/Creatinine Ratio 20; Blood Urea Nitrogen 20 mg/dL (9-20); Calcium 8.6 mg/dL (8.4-10.2); Hemolysis Index 7
[2019-05-25] MEDS: FUROSEMIDE 40 MG/4 ML INJ IV SCH ×2 (06:30→18:20)
[2019-05-25] MEDS: oxyCODONE /ACETAMINOPHEN 5-325MG TAB PO PRN (06:36)
[2019-05-25] MEDS ORDERED: POTASSIUM CHLORIDE ER 20 MEQ TAB PO NR (07:10)
--- NOTE | 2019-05-25 07:15 | Progress Note ---
Assessment and Plan Assessment and plan: Patient is a 39 yo man with history of tobacco dependency, CHF with est EF 40- 45%, Alcohol abuse and hypertension who presented to [facility] ED with cp and sob. About 1 week ago he had abscess drained from his mouth. * 2v CXR: Moderate bilateral pulmonary edema with minimal pleural effusions -Acute on chronic systolic heart failure with pulmonary edema: treat with IV lasix, obtain ECHO==>30-35%, Cardiology evaluation -Malignant hypertension w/ urgency and heart disease: IV hydralazine -Severe Hypokalemia on admission: replete and monitor bmp closely -JUAN JOSÉ suspect: guidance counselor on need for outpatient sleep study -Mild elevated transaminases with obesity and ETOH abuse: check u/s for RAYMUNDO==>reviewed, hepatomegaly -Alcohol Abuse by history: CIWA protocol, thiamine supplement, neurochecks -Recent Oral Abscess with Leukocytosis: obtain blood culture, empiric abx hopefully d/c tomorrow if bp better and Cardiology clears. History Interval history: Patient was seen and examined. Follow-up on current diagnosis of CHF. No overnight events reported to me. Patient denies any nausea/vomiting or severe headaches. Imaging, nursing note, chart, labs and old chart reviewed. Discussed with patient. Hospitalist Physical - Physical exam Narrative exam: Gen: WDWN, obese bmi 36.5 NAD, Awake, Alert, Orientated HEENT: NCAT, EOMI, PERRL, OP Clear but very poor dentition, upper gums are infected with whitish material above gold teeth. Neck: supple, no adenopathy, no thyromegaly, equvical JVD CVS/Heart: RRR, normal S1S2, pulses present bilaterally Chest/Lungs: diminished with bilateral crackles, Symmetrical chest expansion, good air entry bilaterally GI/Abdomen: soft, NTND, good bowel sounds, no guarding or rebound /Bladder: no suprapubic tenderness, no CVA or paraspinal tenderness Extermity/Skin: no c/c/e, no obvious rash MSK: FROM x 4 Neuro: CN 2-12 grossly intact, no new focal deficits Psych: calm - Constitutional Vitals: Temp Pulse Resp BP Pulse Ox 98.6 F 101 H 32 H 165/111 85 05/25/19 04:23 05/25/19 04:23 05/25/19 04:23 05/25/19 04:23 05/25/19 04:23 Results - Labs CBC & Chem 7: 05/25/19 05:21 05/25/19 05:21 Labs: Laboratory Last Values WBC 9.7 K/mm3 (4.5-11.0) 05/25/19 05:21 RBC 4.50 M/mm3 (3.65-5.03) 05/25/19 05:21 Hgb 14.6 gm/dl (11.8-15.2) 05/25/19 05:21 Hct 43.5 % (35.5-45.6) 05/25/19 05:21 MCV 97 fl (84-94) H 05/25/19 05:21 MCH 33 pg (28-32) H 05/25/19 05:21 MCHC 34 % (32-34) 05/25/19 05:21 RDW 16.2 % (13.2-15.2) H 05/25/19 05:21 Plt Count 184 K/mm3 (140-440) 05/25/19 05:21 Lymph % (Auto) 3.2 % (13.4-35.0) L 05/24/19 07:43 [place] % (Auto) 6.6 % (0.0-7.3) 05/24/19 07:43 Eos % (Auto) 0.1 % (0.0-4.3) 05/24/19 07:43 Baso % (Auto) 0.1 % (0.0-1.8) 05/24/19 07:43 Lymph # 0.5 K/mm3 (1.2-5.4) L 05/24/19 07:43 [place] # 1.0 K/mm3 (0.0-0.8) H 05/24/19 07:43 Eos # 0.0 K/mm3 (0.0-0.4) 05/24/19 07:43 Baso # 0.0 K/mm3 (0.0-0.1) 05/24/19 07:43 Seg Neutrophils % 90.0 % (40.0-70.0) H 05/24/19 07:43 Seg Neutrophils # 13.0 K/mm3 (1.8-7.7) H 05/24/19 07:43 Sodium 146 mmol/L (137-145) H 05/25/19 05:21 Potassium 3.1 mmol/L (3.6-5.0) L 05/25/19 05:21 Chloride 103.2 mmol/L (98-107) 05/25/19 05:21 Carbon Dioxide 32 mmol/L (22-30) H 05/25/19 05:21 14 mmol/L 05/25/19 05:21 BUN 20 mg/dL (9-20) 05/25/19 05:21 1.0 mg/dL (0.8-1.5) 05/25/19 05:21 Estimated GFR > 60 ml/min 05/25/19 05:21 20 % 05/25/19 05:21 Glucose 105 mg/dL (75-100) H 05/25/19 05:21 6.4 % (4-6) H 05/23/19 23:44 Lactic Acid 1.90 mmol/L (0.7-2.0) 05/23/19 20:29 Calcium 8.6 mg/dL (8.4-10.2) 05/25/19 05:21 Magnesium 2.20 mg/dL (1.7-2.3) 05/25/19 05:21 0.30 mg/dL (0.1-1.2) 05/23/19 20:29 AST 46 units/L (5-40) H 05/23/19 20:29 ALT 65 units/L (7-56) H 05/23/19 20:29 83 units/L (35-129) 05/23/19 20:29 557 units/L (55-170) H 05/23/19 20:29 0.038 ng/mL (0.00-0.029) H 05/24/19 07:43 NT-Pro-B Natriuret Pep 6644 pg/mL (0-450) H 05/23/19 20:29 6.8 g/dL (6.3-8.2) 05/23/19 20:29 3.8 g/dL (3.9-5) L 05/23/19 20:29 1.3 % 05/23/19 20:29 Triglycerides 141 mg/dL (2-149) 05/23/19 20:29 Cholesterol 165 mg/dL (50-199) 05/23/19 20:29 110 mg/dL (50-130) 05/23/19 20:29 39 mg/dL (40-59) L 05/23/19 20:29 4.23 % 05/23/19 20:29 Active Medications - Current Medications Current Medications: Generic Name Dose Route Start Last Admin Trade Name Freq PRN Reason Stop Dose Admin Acetaminophen 650 mg 05/23/19 22:19 Tylenol PO Q4H PRN Pain MILD(1-3)/Fever >100.5/YU Albuterol 2.5 mg 05/23/19 22:19 Proventil IH Q3HRT PRN Shortness Of Breath Aspirin 81 mg 05/24/19 10:00 05/24/19 13:44 Baby Aspirin PO 81 mg QDAY AMRITA Administration Docusate Sodium 100 mg 05/24/19 10:00 05/24/19 22:31 Colace PO 100 mg BID AMRITA Administration Enoxaparin Sodium 40 mg 05/24/19 10:00 05/24/19 13:44 Lovenox SUB-Q 40 mg QDAY AMRITA Administration Folic Acid 1 mg 05/24/19 10:00 05/24/19 13:43 Folvite PO 1 mg QDAY AMRITA Administration Furosemide 40 mg 05/24/19 06:00 05/25/19 06:30 Lasix IV 40 mg BID@0600,1800 AMRITA Administration Guaifenesin 600 mg 05/24/19 03:00 05/24/19 22:31 Mucinex Er PO 600 mg BID AMRITA Administration Haloperidol Lactate 5 mg 05/24/19 09:36 Haldol IV Q1H PRN Unrespon. to mult. doses BZD's Hydralazine HCl 10 mg 05/23/19 23:56 05/24/19 20:23 Apresoline IV 10 mg Q4HR PRN Administration BP =/> 150/90 Ampicillin Sodium/Sulbactam Sodium 1.5 gm in 50 mls @ 100 mls/hr 05/24/19 12:00 05/25/19 06:30 Unasyn/Ns 1.5 Gm/50 Ml IV 100 mls/hr Q6HR AMRITA Administration Protocol Lisinopril 10 mg 05/24/19 10:00 05/24/19 13:44 Zestril PO 10 mg DAILY AMRITA Administration Lorazepam 2 mg 05/24/19 09:36 Ativan IV Q1H PRN CIWA-Ar 8-15 Lorazepam 4 mg 05/24/19 09:36 Ativan IV Q1H PRN CIWA-Ar 16-25 Metoprolol Tartrate 25 mg 05/23/19 23:00 05/24/19 22:31 Lopressor PO 25 mg BID AMRITA Administration Nitroglycerin 0.4 mg 05/23/19 22:19 Nitrostat SL .Q5MIN PRN Chest Pain Ondansetron HCl 4 mg 05/23/19 22:19 Zofran IV Q6H PRN Nausea And Vomiting Oxycodone/Acetaminophen 1 tab 05/23/19 22:19 05/25/19 06:36 Percocet 5/325 PO 1 tab Q6H PRN Administration Pain, Moderate (4-6) Potassium Chloride 20 meq 05/24/19 10:00 05/24/19 13:43 K-Dur PO 20 meq QDAY AMRITA Administration Potassium Chloride 40 meq 05/25/19 07:10 K-Dur PO 05/25/19 07:11 ONCE ONE Sodium Chloride 10 ml 05/24/19 10:00 05/24/19 22:32 Sodium Chloride Flush Syringe 10 Ml IV 10 ml BID AMRITA Administration Sodium Chloride 10 ml 05/23/19 22:19 05/25/19 06:30 Sodium Chloride Flush Syringe 10 Ml IV 10 ml PRN PRN Administration LINE FLUSH Thiamine HCl 100 mg 05/24/19 10:00 05/24/19 13:44 Vitamin B-1 PO 100 mg QDAY AMRITA Administration
--- NOTE | 2019-05-25 10:26 | Progress Note ---
Assessment and Plan Patient is doing better today. Dyspnea has improved. Potassium is still noted to be low. His ejection fraction is around 30-35% with left ventricular hypertrophy and mitral regurgitation. Plan is to change to carvedilol 6.25 twice a day and added Aldactone 12.5 mg a day. Continue monitoring the potassium closely. Patient is improving gradually. - Patient Problems (1) Acute heart failure Current Visit: Yes Status: Acute Qualifiers: Heart failure type: unspecified Qualified Code(s): I50.9 - Heart failure, unspecified (2) Obesity Current Visit: Yes Status: Chronic Qualifiers: Obesity type: unspecified obesity type Serious obesity comorbidity presence: unspecified whether serious comorbidity present (3) HTN (hypertension) Current Visit: No Status: Acute (4) Uncontrolled hypertension Current Visit: No Status: Acute Subjective Date of service: 05/25/19 Interval history: Patient is feeling better. Her dyspnea has improved no chest pain is noted. Objective Vital Signs Temp Pulse Resp BP Pulse Ox 05/25/19 08:51 20 05/25/19 08:20 20 05/25/19 08:00 98.7 F 105 H 16 149/107 94 05/25/19 04:23 98.6 F 101 H 32 H 165/111 85 05/25/19 03:47 102 H 05/25/19 00:48 99.0 F 91 H 28 H 147/104 92 05/24/19 22:31 108 H 156/103 05/24/19 21:59 98.0 F 108 H 20 156/103 92 05/24/19 20:32 97 05/24/19 20:23 104 H 148/114 05/24/19 20:04 109 H 05/24/19 19:06 98.3 F 99 H 24 148/114 92 05/24/19 16:52 98.5 F 105 H 16 145/111 92 05/24/19 11:28 98 05/24/19 11:25 101 H - Physical Examination General: Appears Well HEENT: Positive: PERRL Neck: Positive: neck supple Cardiac: Positive: Regular Rhythm Lungs: Positive: clear to auscultation Abdomen: Positive: Soft Extremities: Present: normal - Labs and Meds CBC 05/25/19 Range/Units 05:21 WBC 9.7 (4.5-11.0) K/mm3 RBC 4.50 (3.65-5.03) M/mm3 Hgb 14.6 (11.8-15.2) gm/dl Hct 43.5 (35.5-45.6) % Plt Count 184 (140-440) K/mm3 Comprehensive Metabolic Panel 05/25/19 Range/Units 05:21 Sodium 146 H (137-145) mmol/L Potassium 3.1 L (3.6-5.0) mmol/L Chloride 103.2 (98-107) mmol/L Carbon Dioxide 32 H (22-30) mmol/L BUN 20 (9-20) mg/dL Creatinine 1.0 (0.8-1.5) mg/dL Glucose 105 H (75-100) mg/dL Calcium 8.6 (8.4-10.2) mg/dL
[2019-05-25] MEDS: guaiFENesin ER 600 MG TAB PO SCH ×2 (10:39→21:20)
[2019-05-25] MEDS: FOLIC ACID 1 MG TAB PO SCH (10:39)
[2019-05-25] MEDS: POTASSIUM CHLORIDE ER 20 MEQ TAB PO SCH (10:39)
[2019-05-25] MEDS: THIAMINE 100 MG TAB PO SCH (10:39)
[2019-05-25] MEDS: ENOXAPARIN 40 MG/0.4 ML INJ SUB-Q SCH (10:40)
[2019-05-25] MEDS: LISINOPRIL 10 MG TAB PO SCH (10:40)
[2019-05-25] MEDS: DOCUSATE SODIUM 100 MG CAP PO SCH ×2 (10:40→21:20)
[2019-05-25] MEDS: ASPIRIN 81 MG TAB CHEW PO SCH (10:40)
[2019-05-25] MEDS: SPIRONOLACTONE 25 MG TAB PO SCH (10:49)
[2019-05-25] MEDS: METOPROLOL TARTRATE 25 MG TAB PO SCH (19:35)
[2019-05-25] MEDS: hydrALAZINE 20 MG/1 ML INJ IV PRN (19:50)
[2019-05-26] MEDS: hydrALAZINE 20 MG/1 ML INJ IV PRN ×2 (00:29→09:18)
[2019-05-26] MEDS: AMPICILLIN/SULBACTA 1.5GM/50ML 1.5 GM/50 ML BAG IV SCH ×3 (05:30→18:36)
[2019-05-26 06:46] LABS: BUN/Creatinine Ratio 20; Blood Urea Nitrogen 20 mg/dL (9-20); Hemolysis Index 110
[2019-05-26 06:46] LABS: Hematocrit 48.2 % (35.5-45.6); Hemoglobin 16.2 gm/dl (11.8-15.2); Mean Corpuscular HGB Conc 34 % (32-34); Mean Corpuscular Volume 96 fl (84-94); Red Blood Count 5.01 M/mm3 (3.65-5.03); Red Cell Distribution Width 16.5 % (13.2-15.2)
[2019-05-26] MEDS: FUROSEMIDE 40 MG/4 ML INJ IV SCH (06:52)
[2019-05-26 08:41] LABS: Platelet Count 201 K/mm3 (140-440)
[2019-05-26] MEDS: POTASSIUM CHLORIDE ER 20 MEQ TAB PO SCH (09:15)
[2019-05-26] MEDS: ENOXAPARIN 40 MG/0.4 ML INJ SUB-Q SCH (09:15)
[2019-05-26] MEDS: guaiFENesin ER 600 MG TAB PO SCH ×2 (09:15→21:36)
[2019-05-26] MEDS: FOLIC ACID 1 MG TAB PO SCH (09:15)
[2019-05-26] MEDS: THIAMINE 100 MG TAB PO SCH (09:15)
[2019-05-26] MEDS: SPIRONOLACTONE 25 MG TAB PO SCH ×2 (09:17→12:59)
[2019-05-26] MEDS: DOCUSATE SODIUM 100 MG CAP PO SCH ×2 (09:17→21:36)
[2019-05-26] MEDS: LISINOPRIL 10 MG TAB PO SCH (09:17)
[2019-05-26] MEDS: ASPIRIN 81 MG TAB CHEW PO SCH (09:18)
--- NOTE | 2019-05-26 10:38 | Progress Note ---
Assessment and Plan Acute heart failure with reduced ejection fraction Echo reviewed - EF 30-35%, mild LVH, LV mildly dilated, LA severely dilated, mild to mod MR, mild TR. Pt reports first diagnosis of HF was in 08/2018 at [place] where he was briefly hospitalized. He denies undergoing ischemic evaluation at that time. Cardiomyopathy EF 30-35%. Cont GDMT and IV diuresis. Plan for lexiscan MPI stress test in AM to r/o ischemic CMP pending BPs are optimized. NPO after MN. Uncontrolled HTN Initiate coreg, increase lisinopril, increase aldactone. Consider addition of norvasc if necessary for BP optimization. Suspected sleep apnea For OP sleep study per primary. Hypokalemia Replete PRN. Repeat BMP in AM. H/o ETOH abuse Quit drinking in 08/2018 Tobacco use Cessation encouraged Recent oral abscess with leukocytosis Blood cultured negative to date. Cont empiric abx per primary. Medical noncompliance Pt has not taken prescription medications since January,. He has been trying to control BP with "herbal remedies". Importance of medical compliance and OP follow up reiterated. Obesity The patient has been seen in conjunction with Dr. Reeves who agrees with the assessment and plan of care. Subjective Date of service: 05/26/19 Principal diagnosis: HF; HTN Interval history: pt resting comfortably in bed, lying flat, no current complaints. in SR on tele with intermittent sinus tachycardia noted overnight. BPs remain elevated. Objective Last Vital Signs Temp 98.2 F 05/26/19 08:49 Pulse 104 H 05/26/19 09:18 Resp 18 05/26/19 08:49 BP 163/116 05/26/19 09:18 Pulse Ox 95 05/26/19 08:49 - Physical Examination General: Appears Well HEENT: Positive: PERRL Neck: Positive: neck supple Cardiac: Positive: Reg Rate and Rhythm, S1/S2 Lungs: Positive: Decreased Breath Sounds Neuro: Positive: Grossly Intact Abdomen: Positive: Soft Extremities: Present: normal - Labs and Meds CBC 05/26/19 Range/Units Unknown WBC 8.2 (4.5-11.0) K/mm3 RBC 5.01 (3.65-5.03) M/mm3 Hgb 16.2 H (11.8-15.2) gm/dl Hct 48.2 H (35.5-45.6) % Plt Count 201 (140-440) K/mm3 Comprehensive Metabolic Panel 05/26/19 Range/Units 04:00 Sodium 145 (137-145) mmol/L Potassium 3.2 L (3.6-5.0) mmol/L Chloride 100.0 (98-107) mmol/L Carbon Dioxide 27 (22-30) mmol/L BUN 20 (9-20) mg/dL Creatinine 1.0 (0.8-1.5) mg/dL Glucose 130 H (75-100) mg/dL Calcium 9.0 (8.4-10.2) mg/dL
[2019-05-26] MEDS ORDERED: LISINOPRIL 10 MG TAB PO SCH (10:39)
[2019-05-26] MEDS ORDERED: LISINOPRIL 20 MG TAB PO NR (11:00)
[2019-05-26] MEDS ORDERED: POTASSIUM CHLORIDE ER 20 MEQ TAB PO NR (11:00)
[2019-05-26] MEDS: oxyCODONE /ACETAMINOPHEN 5-325MG TAB PO PRN (12:58)
[2019-05-26] MEDS: carvediloL 6.25 MG TAB PO SCH ×2 (13:03→21:36)
--- NOTE | 2019-05-26 14:21 | Progress Note ---
Assessment and Plan Assessment and plan: Patient is a 39 yo man with history of tobacco dependency, CHF with est EF 40- 45%, Alcohol abuse and hypertension who presented to [facility] ED with cp and sob. About 1 week ago he drained an abscess from upper gums but abscess still present. * 2v CXR: Moderate bilateral pulmonary edema with minimal pleural effusions -Acute on chronic systolic heart failure with pulmonary edema: treated with IV lasix, obtain ECHO==>30-35%, Cardiology evaluation, input noted, aldactone added -Malignant hypertension w/ urgency and heart disease: IV hydralazine, continue coreg/lisinopril -Severe Hypokalemia on admission: replete and monitor bmp closely -JUAN JOSÉ suspect: alcoholic counselor on need for outpatient sleep study -Mild elevated transaminases with obesity and ETOH abuse: check u/s for RAYMUNDO==>reviewed, hepatomegaly -Alcohol Abuse by history: CIWA protocol, thiamine supplement, neurochecks -Oral Abscess with Leukocytosis upper gums above the gold teeth: obtain blood culture, abx on IV unasyn Disposition: continue inpatient care, stress test has been ordered by [employer] for AM History Interval history: Patient was seen and examined. Follow-up on current diagnosis of CHF and uncontrolled bp and upper gum dental abscess who he burst himself last week. No overnight events reported to me. Patient denies any nausea/vomiting or severe headaches. Imaging, nursing note, chart, labs and old chart reviewed. Discussed with patient. Hospitalist Physical - Physical exam Narrative exam: Gen: WDWN, obese bmi 36.5 NAD, Awake, Alert, Orientated HEENT: NCAT, EOMI, PERRL, OP Clear but very poor dentition, upper gums are infected with whitish material above gold teeth. Neck: supple, no adenopathy, no thyromegaly, equvical JVD CVS/Heart: RRR, normal S1S2, pulses present bilaterally Chest/Lungs: diminished with bilateral crackles, Symmetrical chest expansion, good air entry bilaterally GI/Abdomen: soft, NTND, good bowel sounds, no guarding or rebound /Bladder: no suprapubic tenderness, no CVA or paraspinal tenderness Extermity/Skin: no c/c/e, no obvious rash MSK: FROM x 4 Neuro: CN 2-12 grossly intact, no new focal deficits Psych: calm - Constitutional Vitals: Temp Pulse Resp BP Pulse Ox 98 F 98 H 18 131/100 97 05/26/19 12:34 05/26/19 13:03 05/26/19 12:34 05/26/19 13:03 05/26/19 12:34 Results - Labs CBC & Chem 7: 05/26/19 Unknown 05/26/19 04:00 Labs: Laboratory Last Values WBC 8.2 K/mm3 (4.5-11.0) 05/26/19 Unknown RBC 5.01 M/mm3 (3.65-5.03) 05/26/19 Unknown Hgb 16.2 gm/dl (11.8-15.2) H 05/26/19 Unknown Hct 48.2 % (35.5-45.6) H 05/26/19 Unknown MCV 96 fl (84-94) H 05/26/19 Unknown MCH 32 pg (28-32) 05/26/19 Unknown MCHC 34 % (32-34) 05/26/19 Unknown RDW 16.5 % (13.2-15.2) H 05/26/19 Unknown Plt Count 201 K/mm3 (140-440) 05/26/19 Unknown Lymph % (Auto) 3.2 % (13.4-35.0) L 05/24/19 07:43 Terrell % (Auto) 6.6 % (0.0-7.3) 05/24/19 07:43 Eos % (Auto) 0.1 % (0.0-4.3) 05/24/19 07:43 Baso % (Auto) 0.1 % (0.0-1.8) 05/24/19 07:43 Lymph # 0.5 K/mm3 (1.2-5.4) L 05/24/19 07:43 Terrell # 1.0 K/mm3 (0.0-0.8) H 05/24/19 07:43 Eos # 0.0 K/mm3 (0.0-0.4) 05/24/19 07:43 Baso # 0.0 K/mm3 (0.0-0.1) 05/24/19 07:43 Seg Neutrophils % 90.0 % (40.0-70.0) H 05/24/19 07:43 Seg Neutrophils # 13.0 K/mm3 (1.8-7.7) H 05/24/19 07:43 Sodium 145 mmol/L (137-145) 05/26/19 04:00 Potassium 3.2 mmol/L (3.6-5.0) L 05/26/19 04:00 Chloride 100.0 mmol/L (98-107) 05/26/19 04:00 Carbon Dioxide 27 mmol/L (22-30) 05/26/19 04:00 Anion Gap 21 mmol/L 05/26/19 04:00 BUN 20 mg/dL (9-20) 05/26/19 04:00 Creatinine 1.0 mg/dL (0.8-1.5) 05/26/19 04:00 Estimated GFR > 60 ml/min 05/26/19 04:00 BUN/Creatinine Ratio 20 % 05/26/19 04:00 Glucose 130 mg/dL (75-100) H 05/26/19 04:00 Hemoglobin A1c 6.4 % (4-6) H 05/23/19 23:44 Lactic Acid 1.90 mmol/L (0.7-2.0) 05/23/19 20:29 Calcium 9.0 mg/dL (8.4-10.2) 05/26/19 04:00 Magnesium 2.20 mg/dL (1.7-2.3) 05/25/19 05:21 Total Bilirubin 0.30 mg/dL (0.1-1.2) 05/23/19 20:29 AST 46 units/L (5-40) H 05/23/19 20:29 ALT 65 units/L (7-56) H 05/23/19 20:29 Alkaline Phosphatase 83 units/L (35-129) 05/23/19 20:29 Total Creatine Kinase 557 units/L (55-170) H 05/23/19 20:29 Troponin T 0.038 ng/mL (0.00-0.029) H 05/24/19 07:43 NT-Pro-B Natriuret Pep 6644 pg/mL (0-450) H 05/23/19 20:29 Total Protein 6.8 g/dL (6.3-8.2) 05/23/19 20:29 Albumin 3.8 g/dL (3.9-5) L 05/23/19 20:29 Albumin/Globulin Ratio 1.3 % 05/23/19 20:29 Triglycerides 141 mg/dL (2-149) 05/23/19 20:29 Cholesterol 165 mg/dL (50-199) 05/23/19 20:29 LDL Cholesterol Direct 110 mg/dL (50-130) 05/23/19 20:29 HDL Cholesterol 39 mg/dL (40-59) L 05/23/19 20:29 Cholesterol/HDL Ratio 4.23 % 05/23/19 20:29 Active Medications - Current Medications Current Medications: Generic Name Dose Route Start Last Admin Trade Name Freq PRN Reason Stop Dose Admin Acetaminophen 650 mg 05/23/19 22:19 05/25/19 08:51 Tylenol PO 650 mg Q4H PRN Administration Pain MILD(1-3)/Fever >100.5/YU Albuterol 2.5 mg 05/23/19 22:19 Proventil IH Q3HRT PRN Shortness Of Breath Aspirin 81 mg 05/24/19 10:00 05/26/19 09:18 Baby Aspirin PO 81 mg QDAY AMRITA Administration Carvedilol 6.25 mg 05/26/19 11:00 05/26/19 13:03 Coreg PO 6.25 mg BID AMRITA Administration Docusate Sodium 100 mg 05/24/19 10:00 05/26/19 09:17 Colace PO 100 mg BID AMRITA Administration Enoxaparin Sodium 40 mg 05/24/19 10:00 05/26/19 09:15 Lovenox SUB-Q 40 mg QDAY AMRITA Administration Folic Acid 1 mg 05/24/19 10:00 05/26/19 09:15 Folvite PO 1 mg QDAY AMRITA Administration Furosemide 40 mg 05/24/19 06:00 05/26/19 06:52 Lasix IV 40 mg BID@0600,1800 AMRITA Administration Guaifenesin 600 mg 05/24/19 03:00 05/26/19 09:15 Mucinex Er PO 600 mg BID AMRITA Administration Haloperidol Lactate 5 mg 05/24/19 09:36 Haldol IV Q1H PRN Unrespon. to mult. doses BZD's Hydralazine HCl 10 mg 05/23/19 23:56 05/26/19 09:18 Apresoline IV 10 mg Q4HR PRN Administration BP =/> 150/90 Ampicillin Sodium/Sulbactam Sodium 1.5 gm in 50 mls @ 100 mls/hr 05/24/19 12:00 05/26/19 12:58 Unasyn/Ns 1.5 Gm/50 Ml IV 100 mls/hr Q6HR AMRITA Administration Protocol Lisinopril 40 mg 05/27/19 10:00 Zestril PO QDAY AMRITA Lorazepam 2 mg 05/24/19 09:36 Ativan IV Q1H PRN CIWA-Ar 8-15 Lorazepam 4 mg 05/24/19 09:36 Ativan IV Q1H PRN CIWA-Ar 16-25 Nitroglycerin 0.4 mg 05/23/19 22:19 Nitrostat SL .Q5MIN PRN Chest Pain Ondansetron HCl 4 mg 05/23/19 22:19 Zofran IV Q6H PRN Nausea And Vomiting Oxycodone/Acetaminophen 1 tab 05/23/19 22:19 05/26/19 12:58 Percocet 5/325 PO 1 tab Q6H PRN Administration Pain, Moderate (4-6) Potassium Chloride 20 meq 05/24/19 10:00 05/26/19 09:15 K-Dur PO 20 meq QDAY AMRITA Administration Sodium Chloride 10 ml 05/24/19 10:00 05/26/19 09:18 Sodium Chloride Flush Syringe 10 Ml IV 10 ml BID AMRITA Administration Sodium Chloride 10 ml 05/23/19 22:19 05/25/19 06:30 Sodium Chloride Flush Syringe 10 Ml IV 10 ml PRN PRN Administration LINE FLUSH Spironolactone 25 mg 05/26/19 11:00 05/26/19 12:59 Aldactone PO 25 mg QDAY AMRITA Administration Thiamine HCl 100 mg 05/24/19 10:00 05/26/19 09:15 Vitamin B-1 PO 100 mg QDAY AMRITA Administration
[2019-05-27] MEDS: AMPICILLIN/SULBACTA 1.5GM/50ML 1.5 GM/50 ML BAG IV SCH ×3 (01:15→12:58)
[2019-05-27 04:57] LABS: Hematocrit 44.8 % (35.5-45.6); Hemoglobin 15.2 gm/dl (11.8-15.2); Mean Corpuscular HGB Conc 34 % (32-34); Mean Corpuscular Volume 96 fl (84-94); Platelet Count 202 K/mm3 (140-440); Red Blood Count 4.68 M/mm3 (3.65-5.03); Red Cell Distribution Width 16.2 % (13.2-15.2)
[2019-05-27 05:18] LABS: BUN/Creatinine Ratio 20; Blood Urea Nitrogen 22 mg/dL (9-20); Calcium 8.1 mg/dL (8.4-10.2); Hemolysis Index 9
[2019-05-27] MEDS ORDERED: REGADENOSON 0.4 MG/5 ML INJ IV ONE (06:51)
[2019-05-27] MEDS ORDERED: POTASSIUM CHLORIDE 10 MEQ 10 MEQ/100 ML BAG IV SCH (08:00)
[2019-05-27] MEDS ORDERED: POTASSIUM CHLORIDE ER 20 MEQ TAB PO NR ×2 (08:49→13:03)
[2019-05-27] MEDS ORDERED: FUROSEMIDE 40 MG TAB PO SCH (10:00)
[2019-05-27] MEDS ORDERED: LISINOPRIL 40 MG TAB PO SCH (10:00)
--- NOTE | 2019-05-27 10:03 | Progress Note ---
Assessment and Plan Acute heart failure with reduced ejection fraction Echo reviewed - EF 30-35%, mild LVH, LV mildly dilated, LA severely dilated, mild to mod MR, mild TR. Pt appears to be nearing/at euvolemia. IV lasix d/c'd. Cardiomyopathy - presumably nonischemic EF 30-35%. Cont coreg, lisinopril, aldactone. S/p lexiscan MPI stress test this AM which was negative for ischemia, EF 27%. Uncontrolled HTN Improving. Cont coreg, lisinopril, aldactone. Suspected sleep apnea For OP sleep study per primary. Hypokalemia Replete PRN. H/o ETOH abuse Quit drinking in 08/2018 Tobacco use Cessation encouraged Recent oral abscess with leukocytosis Blood cultures negative to date. Cont empiric abx per primary. Medical noncompliance Pt has not taken prescription medications since January,. He has been trying to control BP with "herbal remedies". Importance of medical compliance and OP follow up reiterated. Obesity Currently stable cardiac status. S/p lexiscan MPI stress test this AM which was negative for ischemia, EF 27%. Pt may discharge home from cardiology standpoint on current cardiac regimen. Recommend follow up in our office with Dr. CRUZ Reece within 3-5 days of hospital discharge ([phone]). The patient has been seen in conjunction with Dr. Reeves who agrees with the assessment and plan of care. Subjective Date of service: 05/27/19 Principal diagnosis: HF; HTN Interval history: pt for stress test today. no current complaints. BPs improved. Objective Last Vital Signs Temp 98.3 F 05/27/19 07:43 Pulse 86 05/27/19 07:43 Resp 18 05/27/19 07:43 BP 140/107 05/27/19 07:43 Pulse Ox 92 05/27/19 07:43 - Physical Examination General: Appears Well HEENT: Positive: PERRL Neck: Positive: neck supple Cardiac: Positive: Reg Rate and Rhythm, S1/S2 Lungs: Positive: Decreased Breath Sounds Neuro: Positive: Grossly Intact Abdomen: Positive: Soft Extremities: Present: normal - Labs and Meds CBC 05/27/19 Range/Units 03:54 WBC 7.7 (4.5-11.0) K/mm3 RBC 4.68 (3.65-5.03) M/mm3 Hgb 15.2 (11.8-15.2) gm/dl Hct 44.8 (35.5-45.6) % Plt Count 202 (140-440) K/mm3 Comprehensive Metabolic Panel 05/27/19 Range/Units 03:54 Sodium 145 (137-145) mmol/L Potassium 2.9 L* (3.6-5.0) mmol/L Chloride 101.9 (98-107) mmol/L Carbon Dioxide 31 H (22-30) mmol/L BUN 22 H (9-20) mg/dL Creatinine 1.1 (0.8-1.5) mg/dL Glucose 118 H (75-100) mg/dL Calcium 8.1 L (8.4-10.2) mg/dL
[2019-05-27] MEDS: FOLIC ACID 1 MG TAB PO SCH (12:49)
[2019-05-27] MEDS: ASPIRIN 81 MG TAB CHEW PO SCH (12:49)
[2019-05-27] MEDS: SPIRONOLACTONE 25 MG TAB PO SCH (12:49)
[2019-05-27] MEDS: POTASSIUM CHLORIDE ER 20 MEQ TAB PO SCH (12:50)
[2019-05-27] MEDS: ENOXAPARIN 40 MG/0.4 ML INJ SUB-Q SCH (12:50)
[2019-05-27] MEDS: carvediloL 6.25 MG TAB PO SCH (12:50)
[2019-05-27] MEDS: DOCUSATE SODIUM 100 MG CAP PO SCH (12:50)
[2019-05-27] MEDS: THIAMINE 100 MG TAB PO SCH (12:51)
[2019-05-27] MEDS: guaiFENesin ER 600 MG TAB PO SCH (12:51)
[2019-05-27] MEDS: hydrALAZINE 20 MG/1 ML INJ IV PRN (12:57)
[2019-05-27] MEDS ORDERED: carvediloL 6.25 MG TAB PO NR (13:30)
[2019-05-27 15:42] LABS: BUN/Creatinine Ratio 21; Blood Urea Nitrogen 23 mg/dL (9-20); Calcium 8.7 mg/dL (8.4-10.2); Hemolysis Index 12
--- NOTE | 2019-05-27 15:45 | Discharge Summary ---
Providers - Providers Date of Admission: 05/23/19 22:19 Date of discharge: 05/27/19 Attending physician: TRESSA VERDE 05/23/19 22:19 Consult to Physician [CONS] Routine Comment: Consulting Provider: BUSHRA LOPEZ Physician Instructions: Reason For Exam: acute chf Primary care physician: BRUSHER Hospitalization Reason for admission: CP and sob Condition: Stable Pertinent studies: NM MPI stress test Hospital course: Patient is alert and oriented and not was no specific complaints. Denies any chest pain or shortness of breath this morning he had a stress thallium which occult blood cardiology note is negative. However his sputum production this morning was 2.9. She has been given oral supplements and ambulating for repeat BMP result. His blood pressure also moderately high especially the diastolic blood pressure was 125 medications that are just oriented. Diastolic blood pressure was 99. Patient is medically stable patient is frustrated and desperately wants to go home and states that she is feeling just fine. He'll be discharged once I'll check serum electrolytes and if the potassium is reasonably fair. He is medically stable A/P Acute heart failure with reduced ejection fraction Echo reviewed - EF 30-35%, mild LVH, LV mildly dilated, LA severely dilated, mild to mod MR, mild TR. Pt appears to be nearing/at euvolemia. IV lasix d/c'd. Cardiomyopathy - presumably nonischemic EF 30-35%. Cont coreg, lisinopril, aldactone. S/p lexiscan MPI stress test this AM which was negative for ischemia, EF 27%. Uncontrolled HTN Improving. Cont coreg, lisinopril, aldactone. Patient appears to be sensitive to diuretic and his potassium is consistently low. Serum magnesium level was in the normal range Suspected sleep apnea For OP sleep study per primary. Hypokalemia Repleted H/o ETOH abuse Quit drinking in 08/2018 Tobacco use Cessation encouraged Recent oral abscess with leukocytosis Patient had an abscess prior to admission and he was already on antibiotics prior to admission Leukocytosis since has been dissolved and patient has no signs or symptoms of abscess Medical noncompliance Pt has not taken prescription medications since January,. He has been trying to control BP with "herbal remedies". Importance of medical compliance and OP follow up reiterated. Currently stable cardiac status. S/p lexiscan MPI stress test this AM which was negative for ischemia, EF 27%. Cardiology cleared the patient for discharge and he'll follow up with cardiology in 3-5 days Disposition: DC-01 TO HOME OR SELFCARE Core Measure Documentation - Palliative Care Palliative Care/ Comfort Measures: Not Applicable - Core Measures Any of the following diagnoses?: none Exam - Constitutional Vitals: Temp Pulse Resp BP Pulse Ox 98.3 F 90 18 157/125 98 05/27/19 07:43 05/27/19 13:32 05/27/19 10:00 05/27/19 13:32 05/27/19 10:00 General appearance: Present: no acute distress - EENT Eyes: Present: PERRL, EOM intact ENT: hearing intact, clear oral mucosa - Neck Neck: Present: supple, normal ROM - Respiratory Respiratory effort: normal - Cardiovascular Rhythm: regular Heart Sounds: Present: S1 & S2 - Extremities Extremities: No edema - Abdominal General gastrointestinal: Present: soft, non-tender. Absent: hepatomegaly, sple nomegaly - Rectal Rectal Exam: deferred - Integumentary Integumentary: Present: clear - Musculoskeletal Musculoskeletal: strength equal bilaterally - Psychiatric Psychiatric: appropriate mood/affect - Neurologic Neurologic: no focal deficits Plan Activity: no restrictions, advance as tolerated Weight Bearing Status: Full Weight Bearing Diet: regular, low fat, low cholesterol, low salt Special Instructions: restrict fluid intake to (1500 ml), smoking cessation Follow up with: PRIMARY CARE, [Primary Care Provider] - 3-5 Days MILLICENT RAO MD [Staff Physician] - 3 Days Prescriptions: Spironolactone [Aldactone] 25 mg PO QDAY #30 tablet Aspirin [Aspirin BABY CHEW TAB] 81 mg PO QDAY #30 tab.chew Carvedilol [Coreg] 12.5 mg PO BID #60 tablet Lisinopril [Zestril TAB] 40 mg PO QDAY #30 tablet
[2019-05-27 16:11] VITALS: BP 128/98
[2019-05-27] MEDS ORDERED: POTASSIUM CHLORIDE ER 20 MEQ TAB PO ONE (17:30)
[2019-05-27] MEDS ORDERED: carvediloL 12.5 MG TAB PO SCH (22:00)
--- NOTE | 2019-05-28 03:51 | Treadmill Report ---
NUCLEAR PERFUSION SCAN REFERRING PHYSICIAN: Hospitalist service. PROTOCOL: The patient was brought to the stress lab in a postabsorptive state, given 10 mCi of technetium 99m at rest. The patient underwent rest imaging. The patient underwent Lexiscan stress test. At peak stress, the patient was given 26 mCi of technetium 99m. Shortly thereafter, the patient underwent stress imaging. Raw imaging reveals mild GI artifact, no significant motion artifact. SPECT imaging examined carefully in horizontal long axis, vertical long axis, short axis views. There is normal mitral uptake of radioisotope in all reported segments. No evidence of a significant fixed or reversible perfusion defects suggestive of prior infarction or ischemia. Gated wall motion reveals severe global left ventricular hypokinesis. Calculated ejection fraction of 27%. No TID. CONCLUSIONS: 1. Normal myocardial perfusion scan without evidence of active ischemia or prior infarction. 2. Mildly dilated LV chamber size with severe global left ventricular hypokinesis with a calculated ejection fraction of 27%. JOB# [id number] CONSUELO/KYLEE
== END 2019-05-27 17:00 | disposition home or self-care (01) | DRG 291 ==
LOC: ED 17:36 → 4A 22:19
PROVIDERS: ADMIT Internal Medicine; ATTEND Internal Medicine
PROC: 5A09357 Assistance with Respiratory Ventilation, Less than 24 Consecutive Hours, Continuous Positive Airway Pressure (ICD-10-PCS; principal; 2019-05-23)
PROC: 5A09357 Assistance with Respiratory Ventilation, Less than 24 Consecutive Hours, Continuous Positive Airway Pressure (ICD-10-PCS; 2019-05-24)
DX: I11.0 Hypertensive heart disease with heart failure (principal); J96.01 Acute respiratory failure with hypoxia; I42.8 Other cardiomyopathies; E87.6 Hypokalemia; G47.30 Sleep apnea, unspecified; F17.200 Nicotine dependence, unspecified, uncomplicated; E66.9 Obesity, unspecified; I50.23 Acute on chronic systolic (congestive) heart failure; I16.0 Hypertensive urgency; I27.20 Pulmonary hypertension, unspecified; R74.0 Nonspecific elevation of levels of transaminase and lactic acid dehydrogenase [LDH]; Z79.899 Other long term (current) drug therapy; Z91.14 Patient's other noncompliance with medication regimen; Z68.35 Body mass index [BMI] 35.0-35.9, adult
CPT/HCPCS: 36415; 71046; 76705; 78452; 80048; 80053; 80061; 82140; 82550; 83036; 83735; 83880; 84484; 85025; 85027; 87040; 93005; 93010; 93017; 93306; 94640; 94760; 96365; 96375; G0378; A9502; J0295; J0360; J1650; J1940; J2785; J3480

== ENCOUNTER 2019-06-23 21:01 | Emergency (ER) | payer SELFPAY ==
--- NOTE | 2019-06-23 21:22 | Emergency Department Report ---
Blank Doc - Documentation Documentation: 39-year-old male raven tpresents with SOB and bileral leg swelling. This initial assessment/diagnostic orders/clinical plan/treatment(s) is/are subject to change based on patient's health status, clinical progression and re- assessment by fellow clinical providers in the ED. Further treatment and workup at subsequent clinical providers discretion. Patient/guardians urged not to elope from the ED as their condition may be serious if not clinically assessed and managed. Initial orders include: 1- Patient sent to MAIN for further evaluation and treatment 2- labs 3- EKG 4- CXR
[2019-06-23 22:00] LABS: Basophils # (Auto) 0.1 K/mm3 (0.0-0.1); Basophils % (Auto) 1.3 % (0.0-1.8); Eosinophils % (Auto) 0.2 % (0.0-4.3); Hematocrit 42.2 % (35.5-45.6); Hemoglobin 13.5 gm/dl (11.8-15.2); Lymphocytes # (Auto) 0.6 K/mm3 (1.2-5.4); Mean Corpuscular HGB Conc 32 % (32-34); Mean Corpuscular Volume 99 fl (84-94); Monocytes # (Auto) 0.8 K/mm3 (0.0-0.8); Monocytes % (Auto) 9.7 % (0.0-7.3); Platelet Count 212 K/mm3 (140-440); Red Blood Count 4.27 M/mm3 (3.65-5.03); Red Cell Distribution Width 17.3 % (13.2-15.2)
[2019-06-23 22:08] LABS: Alanine Aminotransferase 75 units/L (7-56); Albumin 3.7 g/dL (3.9-5); BUN/Creatinine Ratio 27; Blood Urea Nitrogen 27 mg/dL (9-20); Calcium 8.3 mg/dL (8.4-10.2); Hemolysis Index 11
[2019-06-23 22:14] LABS: INR 0.97 (0.87-1.13)
[2019-06-23 22:15] LABS: Partial Thromboplastin Time 25.1 Sec. (24.2-36.6)
--- NOTE | 2019-06-23 22:18 | XRay Report ---
CHEST PA AND LATERAL VIEWS INDICATION: Chest Pain. COMPARISON: 05/23/2019 FINDINGS: Support devices: None Heart: Mildly enlarged but stable Lungs/Pleura: Pulmonary edema has cleared. No acute disease on today's exam. IMPRESSION: 1. No acute disease. Signer Name: Nick Art MD Signed: 06/23/2019 10:13 PM Workstation Name: [id number]
[2019-06-23] MEDS ORDERED: FUROSEMIDE 40 MG/4 ML INJ IV ONE (23:04)
[2019-06-23] MEDS ORDERED: NITROGLYCERIN 0.4 MG TAB SUBL SL ONE (23:05)
[2019-06-23] MEDS ORDERED: hydrALAZINE 20 MG/1 ML INJ IV ONE ×2 (23:05→23:06)
[2019-06-24] MEDS ORDERED: cloNIDine 0.2 MG TAB PO ONE (01:16)
[2019-06-24] MEDS ORDERED: hydrALAZINE 20 MG/1 ML INJ IV ONE (02:30)
[2019-06-24 03:29] VITALS: BP 138/109
--- NOTE | 2019-06-24 06:20 | Emergency Department Report ---
ED Shortness of Breath HPI - General Chief Complaint: Dyspnea/Respdistress Stated Complaint: DIFF BREATHING Time Seen by Provider: 06/23/19 21:21 Source: patient Mode of arrival: Ambulatory Limitations: No Limitations - History of Present Illness Initial Comments: 39-year-old male raven tpresents with SOB and bileral leg swelling. - Related Data Previous Rx's Medication Instructions Recorded Last Taken Type Aspirin [Aspirin BABY CHEW TAB] 81 mg PO QDAY #30 tab.chew 05/27/19 Unknown Rx Carvedilol [Coreg] 12.5 mg PO BID #60 tablet 05/27/19 Unknown Rx Folic Acid [Folvite] 1 mg PO QDAY tablet 05/27/19 Unknown Rx Lisinopril [Zestril TAB] 40 mg PO QDAY #30 tablet 05/27/19 Unknown Rx Spironolactone [Aldactone] 25 mg PO QDAY #30 tablet 05/27/19 Unknown Rx Thiamine [Vitamin B-1] 100 mg PO QDAY tablet 05/27/19 Unknown Rx hydrALAZINE [Apresoline TAB] 25 mg PO Q8HR 30 Days #90 tab 06/24/19 Unknown Rx Allergies Allergy/AdvReac Type Severity Reaction Status Date / Time No Known Allergies Allergy Verified 06/16/18 18:08 ED Review of Systems ROS: Stated complaint: DIFF BREATHING Other details as noted in HPI ED Past Medical Hx - Past Medical History Hx Hypertension: Yes Hx Congestive Heart Failure: Yes Hx Diabetes: No Hx GERD: Yes Hx Arthritis: Yes Hx Asthma: No Hx COPD: Yes Hx HIV: No - Surgical History Additional Surgical History: Hernia repair - Social History Smoking Status: Former Smoker Substance Use Type: None - Medications Home Medications: Home Medications Medication Instructions Recorded Confirmed Last Taken Type Aspirin [Aspirin BABY CHEW TAB] 81 mg PO QDAY #30 tab.chew 05/27/19 Unknown Rx Carvedilol [Coreg] 12.5 mg PO BID #60 tablet 05/27/19 Unknown Rx Folic Acid [Folvite] 1 mg PO QDAY tablet 05/27/19 Unknown Rx Lisinopril [Zestril TAB] 40 mg PO QDAY #30 tablet 05/27/19 Unknown Rx Spironolactone [Aldactone] 25 mg PO QDAY #30 tablet 05/27/19 Unknown Rx Thiamine [Vitamin B-1] 100 mg PO QDAY tablet 05/27/19 Unknown Rx hydrALAZINE [Apresoline TAB] 25 mg PO Q8HR 30 Days #90 tab 06/24/19 Unknown Rx ED Physical Exam - General Limitations: No Limitations ED Course Vital Signs 06/23/19 06/23/19 06/23/19 21:08 22:51 23:01 Temperature 98.3 F Pulse Rate 89 86 91 H Respiratory 18 14 25 H Rate Blood Pressure 151/108 157/116 Blood Pressure [Left] O2 Sat by Pulse 97 97 95 Oximetry 06/23/19 06/23/19 06/23/19 23:15 23:21 23:31 Temperature Pulse Rate 96 H 81 94 H Respiratory 19 17 Rate Blood Pressure 157/116 157/115 162/126 Blood Pressure [Left] O2 Sat by Pulse 97 95 Oximetry 06/23/19 06/24/19 06/24/19 23:45 00:01 00:10 Temperature Pulse Rate 92 H 88 95 H Respiratory 20 12 16 Rate Blood Pressure 162/126 162/117 162/117 Blood Pressure [Left] O2 Sat by Pulse 96 98 97 Oximetry 06/24/19 06/24/19 06/24/19 00:11 00:15 00:21 Temperature Pulse Rate 91 H 90 Respiratory 20 11 L 12 Rate Blood Pressure 162/117 153/107 Blood Pressure [Left] O2 Sat by Pulse 98 97 Oximetry 06/24/19 06/24/19 06/24/19 00:31 00:45 01:01 Temperature Pulse Rate 89 94 H 98 H Respiratory 16 29 H 25 H Rate Blood Pressure 153/107 153/107 152/107 Blood Pressure [Left] O2 Sat by Pulse 93 94 98 Oximetry 06/24/19 06/24/19 06/24/19 01:15 01:19 01:31 Temperature Pulse Rate 94 H 94 H 92 H Respiratory 24 22 Rate Blood Pressure 150/109 155/115 149/101 Blood Pressure [Left] O2 Sat by Pulse 96 97 Oximetry 06/24/19 06/24/19 06/24/19 01:45 02:00 02:15 Temperature Pulse Rate 93 H 90 93 H Respiratory 24 18 16 Rate Blood Pressure 149/101 150/107 150/107 Blood Pressure [Left] O2 Sat by Pulse 97 98 97 Oximetry 06/24/19 06/24/19 06/24/19 02:31 02:45 03:01 Temperature Pulse Rate 81 76 89 Respiratory 15 16 10 L Rate Blood Pressure 157/120 157/120 149/119 Blood Pressure [Left] O2 Sat by Pulse 97 99 97 Oximetry 06/24/19 03:28 Temperature Pulse Rate 90 Respiratory Rate Blood Pressure Blood Pressure 138/109 [Left] O2 Sat by Pulse Oximetry ED Medical Decision Making - Lab Data Result diagrams: 06/23/19 21:24 06/23/19 21:24 Critical care attestation.: If time is entered above; I have spent that time in minutes in the direct care of this critically ill patient, excluding procedure time. ED Disposition Clinical Impression: Pleuritic chest pain HTN (hypertension) Qualifiers: Hypertension type: essential hypertension Qualified Code(s): I10 - Essential (primary) hypertension Disposition: TO HOME OR SELFCARE Is pt being admited?: No Does the pt Need Aspirin: No Condition: Stable Instructions: Hypertension (ED), Chest Pain (ED) Prescriptions: hydrALAZINE [Apresoline TAB] 25 mg PO Q8HR 30 Days #90 tab Referrals: PRIMARY CARE, [Primary Care Provider] - 3-5 Days Forms: Work/School Release Form(ED)
== END 2019-06-24 04:09 | disposition home or self-care (01) ==
LOC: ED 21:01
DX: R07.81 Pleurodynia (principal); I10 Essential (primary) hypertension; I11.0 Hypertensive heart disease with heart failure; I50.9 Heart failure, unspecified; K21.9 Gastro-esophageal reflux disease without esophagitis; M19.90 Unspecified osteoarthritis, unspecified site; J44.9 Chronic obstructive pulmonary disease, unspecified; Z87.891 Personal history of nicotine dependence; Z79.899 Other long term (current) drug therapy
CPT/HCPCS: 36415; 71046; 80053; 83880; 84484; 85025; 85610; 85730; 96374; 96375; 96376; 99284; J0360; J1940

== ENCOUNTER 2020-02-02 00:12 | Emergency (ER) | payer OTHER ==
[2020-02-02 02:14] VITALS: BP 132/92
== END 2020-02-02 02:44 | disposition home or self-care (01) ==
LOC: ED 00:12
DX: S39.012A Strain of muscle, fascia and tendon of lower back, initial encounter (principal); M62.830 Muscle spasm of back; I11.0 Hypertensive heart disease with heart failure; I50.9 Heart failure, unspecified; K21.9 Gastro-esophageal reflux disease without esophagitis; M19.91 Primary osteoarthritis, unspecified site; J44.9 Chronic obstructive pulmonary disease, unspecified; F17.200 Nicotine dependence, unspecified, uncomplicated; Z98.890 Other specified postprocedural states; Z79.1 Long term (current) use of non-steroidal anti-inflammatories (NSAID); Z79.899 Other long term (current) drug therapy; X50.0XXA Overexertion from strenuous movement or load, initial encounter; Y93.89 Activity, other specified; Y92.89 Other specified places as the place of occurrence of the external cause; Y99.0 Civilian activity done for income or pay
CPT/HCPCS: 96372; 99282; J1100; J1885; Q0162

== ENCOUNTER 2020-06-21 12:39 | Observation (INO) | payer OTHER ==
--- NOTE | 2020-06-21 12:55 | Emergency Department Report ---
Blank Doc - Documentation Documentation: 40-year-old male that presents with SOB and bilateral leg swelling. HX of CHF. This initial assessment/diagnostic orders/clinical plan/treatment(s) is/are subject to change based on patient's health status, clinical progression and re- assessment by fellow clinical providers in the ED. Further treatment and workup at subsequent clinical providers discretion. Patient/guardians urged not to elope from the ED as their condition may be serious if not clinically assessed and managed. Initial orders include: 1- Patient sent to MAIN ED for further evaluation and treatment 2- cardiac workup
[2020-06-21 14:26] LABS: Basophils % (Auto) 0.4 % (0.0-1.8); Eosinophils % (Auto) 0.1 % (0.0-4.3); Hematocrit 46.1 % (35.5-45.6); Hemoglobin 15.4 gm/dl (11.8-15.2); Lymphocytes # (Auto) 0.5 K/mm3 (1.2-5.4); Lymphocytes % (Auto) 4.9 % (13.4-35.0); Mean Corpuscular HGB Conc 33 % (32-34); Mean Corpuscular Volume 98 fl (84-94); Monocytes # (Auto) 1.1 K/mm3 (0.0-0.8); Monocytes % (Auto) 11.5 % (0.0-7.3); Platelet Count 145 K/mm3 (140-440); Red Cell Distribution Width 16.4 % (13.2-15.2)
[2020-06-21 14:47] LABS: Alanine Aminotransferase 38 units/L (7-56); Albumin 4.2 g/dL (3.9-5); BUN/Creatinine Ratio 22; Blood Urea Nitrogen 22 mg/dL (9-20); Calcium 9.3 mg/dL (8.4-10.2); Hemolysis Index 8
--- NOTE | 2020-06-21 14:48 | XRay Report ---
CHEST 2 VIEWS INDICATION / CLINICAL INFORMATION: Chest Pain. COMPARISON: Chest x-ray on 03/06/2020 FINDINGS: SUPPORT DEVICES: None. HEART / MEDIASTINUM: Stable borderline cardiomegaly. LUNGS / PLEURA: Stable chronic interstitial prominence without focal consolidation or pleural effusio n. No adverse change from prior. No pneumothorax. ADDITIONAL FINDINGS: No significant additional findings. IMPRESSION: 1. No acute findings. Signer Name: James Sosa MD Signed: 06/21/2020 2:43 PM Workstation Name: [id number]
[2020-06-21] MEDS ORDERED: POTASSIUM CHLORIDE ER 20 MEQ TAB PO ONE (15:12)
[2020-06-21] MEDS ORDERED: FUROSEMIDE 40 MG/4 ML INJ IV ONE (15:12)
[2020-06-21 15:15] LABS: Chol/HDL Ratio 3.42 %; HDL Cholesterol 56 mg/dL (40-59); LDL Cholesterol,Direct 124 mg/dL (50-130)
--- NOTE | 2020-06-21 15:17 | Emergency Department Report ---
ED Chest Pain HPI - General Chief Complaint: Dyspnea/Respdistress Stated Complaint: BACK PAIN Time Seen by Provider: 06/21/20 12:54 Source: patient Mode of arrival: Ambulatory Limitations: No Limitations - History of Present Illness Initial Comments: This is a 40-year-old male presents to the emergency department with complaints of right-sided low back pain, generalized chest pain, shortness of breath, and edema. Patient has a history of an injury to his lower back from the summer and he was due to have a steroid injection to that area earlier today by his physician at [facility]. However he was found to have very elevated blood pressure and they would not perform the procedure. Patient does also admit to some generalized chest pain, shortness of breath that worsens with exertion, and swelling of the legs and abdomen. He has a past medical history that includes COPD not oxygen dependent, nonischemic cardiomyopathy with an ejec tion fraction of 35 to 40% on echo 09/2019, CHF, hypertension, GERD and he is a tobacco smoker. The patient had a negative stress test in May 2019. He follows with Dr. Lopez for cardiology. He does not have a primary care physician. No recent travel or sick contacts at home. He denies any fever, cough, nausea, vomiting or diaphoresis. No known alleviating factors. - Related Data Previous Rx's Medication Instructions Recorded Last Taken Type Aspirin [Aspirin BABY CHEW TAB] 81 mg PO QDAY #30 tab.chew 05/27/19 Unknown Rx Folic Acid [Folvite] 1 mg PO QDAY tablet 05/27/19 Unknown Rx Spironolactone [Aldactone] 25 mg PO QDAY #30 tablet 05/27/19 Unknown Rx Thiamine [Vitamin B-1] 100 mg PO QDAY tablet 05/27/19 Unknown Rx carvediloL [Coreg] 12.5 mg PO BID #60 tablet 05/27/19 Unknown Rx lisinopriL [Zestril TAB] 40 mg PO QDAY #30 tablet 05/27/19 Unknown Rx hydrALAZINE [Apresoline TAB] 25 mg PO Q8HR 30 Days #90 tab 06/24/19 Unknown Rx Ibuprofen [Motrin] 800 mg PO Q8HR PRN #30 tablet 02/02/20 Unknown Rx methOCARBAMOL [Robaxin TAB] 750 mg PO Q8H PRN #30 tablet 02/02/20 Unknown Rx predniSONE [Deltasone] 60 mg PO QDAY #15 tab 02/02/20 Unknown Rx traMADoL [Ultram] 50 mg PO Q6HR PRN #12 tablet 02/02/20 Unknown Rx Allergies Allergy/AdvReac Type Severity Reaction Status Date / Time No Known Allergies Allergy Verified 06/16/18 18:08 Heart Score - HEART Score History: Slightly suspicious EKG: Non-specific Age: < 45 Risk factors: > 3 risk factors or hx of atherosclerotic disease Troponin: 1-3x normal limit HEART Score: 4 - Critical Actions Critical Actions: 4-6 pts:12-16.6% risk of adverse cardiac event. Should be admitted ED Review of Systems ROS: Stated complaint: BACK PAIN Other details as noted in HPI Comment: All other systems reviewed and negative Constitutional: denies: chills, fever Eyes: denies: eye pain, vision change ENT: denies: ear pain, throat pain Respiratory: shortness of breath, SOB with exertion. denies: cough Cardiovascular: chest pain, edema Gastrointestinal: denies: abdominal pain, vomiting Genitourinary: denies: dysuria, discharge Musculoskeletal: back pain. denies: arthralgia Skin: denies: rash, lesions Neurological: denies: headache, weakness ED Past Medical Hx - Past Medical History Previous Medical History?: Yes Hx Hypertension: Yes Hx Congestive Heart Failure: Yes Hx Diabetes: No Hx GERD: Yes Hx Arthritis: Yes Hx Asthma: No Hx COPD: Yes Hx HIV: No - Surgical History Past Surgical History?: Yes Additional Surgical History: Hernia repair - Social History Smoking Status: Current Every Day Smoker - Medications Home Medications: Home Medications Medication Instructions Recorded Confirmed Last Taken Type Aspirin [Aspirin BABY CHEW TAB] 81 mg PO QDAY #30 tab.chew 05/27/19 06/21/20 Unknown Rx Folic Acid [Folvite] 1 mg PO QDAY tablet 05/27/19 06/21/20 Unknown Rx Spironolactone [Aldactone] 25 mg PO QDAY #30 tablet 05/27/19 06/21/20 Unknown Rx Thiamine [Vitamin B-1] 100 mg PO QDAY tablet 05/27/19 06/21/20 Unknown Rx carvediloL [Coreg] 12.5 mg PO BID #60 tablet 05/27/19 06/21/20 Unknown Rx lisinopriL [Zestril TAB] 40 mg PO QDAY #30 tablet 05/27/19 06/21/20 Unknown Rx hydrALAZINE [Apresoline TAB] 25 mg PO Q8HR 30 Days #90 tab 06/24/19 06/21/20 Unknown Rx Ibuprofen [Motrin] 800 mg PO Q8HR PRN #30 tablet 02/02/20 06/21/20 Unknown Rx methOCARBAMOL [Robaxin TAB] 750 mg PO Q8H PRN #30 tablet 02/02/20 06/21/20 Unknown Rx predniSONE [Deltasone] 60 mg PO QDAY #15 tab 02/02/20 06/21/20 Unknown Rx traMADoL [Ultram] 50 mg PO Q6HR PRN #12 tablet 02/02/20 06/21/20 Unknown Rx ED Physical Exam - General Limitations: No Limitations - Other Other exam information: GENERAL: The patient is well-developed well-nourished. HENT: Normocephalic. Atraumatic. Patient has moist mucous membranes. EYES: Extraocular motions are intact. NECK: Supple. Trachea is midline. CHEST/LUNGS: Clear to auscultation. There is no respiratory distress noted. HEART/CARDIOVASCULAR: Regular. There is no tachycardia. There is no murmur. ABDOMEN: Abdomen is soft, nontender. Patient has normal bowel sounds. SKIN: Skin is warm and dry. 2+ pitting edema to the bilateral lower extremities. There is nonpitting swelling going up to the lower to mid abdomen. NEURO: The patient is awake, alert, and oriented. The patient is cooperative. The patient has no focal neurologic deficits. Normal speech. MUSCULOSKELETAL: There is no tenderness or deformity. There is no limitation range of motion. BACK: No midline thoracic or lumbar tenderness to palpation. There is reproducible right-sided lumbar paraspinal tenderness to palpation. ED Course Vital Signs 06/21/20 06/21/20 06/21/20 13:30 15:49 16:00 Temperature 98.4 F Pulse Rate 86 109 H 80 Respiratory 18 18 Rate Blood Pressure 162/111 Blood Pressure [Right] O2 Sat by Pulse 97 98 Oximetry 06/21/20 06/21/20 06/21/20 16:03 16:16 16:30 Temperature Pulse Rate Respiratory 18 10 L 13 Rate Blood Pressure Blood Pressure [Right] O2 Sat by Pulse 99 98 100 Oximetry 06/21/20 06/21/20 06/21/20 16:46 17:00 17:16 Temperature Pulse Rate Respiratory 22 22 16 Rate Blood Pressure Blood Pressure [Right] O2 Sat by Pulse 96 98 96 Oximetry 06/21/20 06/21/20 06/21/20 17:30 17:46 17:55 Temperature 98.2 F Pulse Rate 85 Respiratory 34 H 33 H 20 Rate Blood Pressure Blood Pressure 134/112 [Right] O2 Sat by Pulse 94 97 98 Oximetry 06/21/20 18:00 Temperature Pulse Rate 79 Respiratory 20 Rate Blood Pressure 167/121 Blood Pressure [Right] O2 Sat by Pulse 96 Oximetry SARAH score - Sarah Score Age > 65: (0) No Aspirin use within the Past 7 Days: (1) Yes 3 or more CAD Risk Factors: (1) Yes 2 or more Angina events in past 24 hrs: (1) Yes Known CAD with more than 50% Stenosis: (0) No Elevated Cardiac Markers: (1) Yes ST Deviation Greater than 0.5mm: (0) No SARAH Score: 4 ED Medical Decision Making - Lab Data Result diagrams: 06/21/20 14:02 06/21/20 14:02 - EKG Data -: EKG Interpreted by Me EKG shows normal: sinus rhythm (PVCs), axis, intervals, QRS complexes (LVH), ST- T waves Rate: normal - EKG Data When compared to previous EKG there are: no significant change Interpretation: unchanged when compared t (03/04/20) - Radiology Data Radiology results: image reviewed interpreted by me: Chest x-ray shows some pulmonary vascular congestion. No overt pleural effusions. No obvious pneumonia. - Medical Decision Making This patient presents to the emergency department with complaint of chest pain, shortness of breath, right lateral lower back pain. The back pain is reproducible and is being evaluated and treated by [facility]. No midline thoracic or lumbar tenderness to palpation. No fall or injury. The patient appears to be in a CHF exacerbation. Chest x-ray shows some pulmonary vascular congestion. The patient has 2+ pitting edema to the bilateral lower extremities, as well as some nonpitting edema that goes up to the abdomen. EKG does not have any morphology consistent with ST elevation myocardial infarction. Patient's labs shows a BNP greater than 9000 without any renal insufficiency. He has a elevated troponin of 0.055. He has hypokalemia with a potassium of 2.6 and was started on potassium replacement and received IV Lasix for diuresis. There is a moderate heart and SARAH score. Patient will be admitted to the hospital for further evaluation and treatment and was excepted for admission by the hospitalist, Dr. Barrett. Critical Care Time: Yes Critical care time in (mins) excluding proc time.: 35 Critical care attestation.: If time is entered above; I have spent that time in minutes in the direct care of this critically ill patient, excluding procedure time. Critical care time has been spent on this patient in doing his initial evaluation, multiple reevaluations, ordering and interpretation of labs and imaging, IV Lasix for diuresis, potassium chloride for replacement of the hypokalemia, discussion with the hospitalist service and multiple discussions with the patient. Critical Care Time: 35 minutes ED Disposition Clinical Impression: Elevated troponin, NICM (nonischemic cardiomyopathy) Edema Qualifiers: Edema type: unspecified Qualified Code(s): R60.9 - Edema, unspecified CHF exacerbation Qualifiers: Heart failure type: unspecified Qualified Code(s): I50.9 - Heart failure, unspecified Hypertension Qualifiers: Hypertension type: essential hypertension Qualified Code(s): I10 - Essential (primary) hypertension Disposition: 09 OP ADMIT IP TO THIS HOSP Is pt being admited?: Yes Condition: Serious Time of Disposition: 20:22
[2020-06-21 15:29] LABS: INR 0.84 (0.87-1.13)
[2020-06-21 15:33] LABS: Partial Thromboplastin Time 22.5 Sec. (24.2-36.6)
[2020-06-21] MEDS ORDERED: POTASSIUM CHLORIDE 10 MEQ 10 MEQ/100 ML BAG IV SCH ×2 (16:00→23:00)
[2020-06-21 18:11] LABS: Bilirubin,Urine NEG (Negative); Blood,Urine NEG (Negative); Color,Urine Straw (Yellow); Urobilinogen,Urine < 2.0 mg/dL (<2.0)
[2020-06-21] MEDS ORDERED: IBUPROFEN 800 MG TAB PO PRN (22:43)
--- NOTE | 2020-06-21 22:43 | History and Physical Report ---
History of Present Illness Date of examination: 06/21/20 Date of admission: 06/21/20 16:53 Chief complaint: Increasing shortness of breath History of present illness: This is a 40-year-old male presents to the emergency department with complaints of right-sided low back pain, generalized chest pain, shortness of breath, and edema. Patient has a history of an injury to his lower back from the summer and he was due to have a steroid injection to that area earlier today by his physician at [facility]. However he was found to have very elevated blood pressure and they would not perform the procedure. Patient does also admit to some generalized chest pain, shortness of breath that worsens with exertion, and swelling of the legs and abdomen. He has a past medical history that includes COPD not oxygen dependent, nonischemic cardiomyopathy with an ejection fraction of 35 to 40% on echo 09/2019, CHF, hypertension, GERD and he is a tobacco smoker. The patient had a negative stress test in May 2019. He follows with Dr. Lopez for cardiology. He does not have a primary care physician. No recent travel or sick contacts at home. He denies any fever, cough, nausea, vomiting or diaphoresis. No known alleviating factors. - Related Data Previous Rx's Medication Instructions Recorded Last Taken Type Aspirin [Aspirin BABY CHEW TAB] 81 mg PO QDAY #30 tab.chew 05/27/19 Unknown Rx Folic Acid [Folvite] 1 mg PO QDAY tablet 05/27/19 Unknown Rx Spironolactone [Aldactone] 25 mg PO QDAY #30 tablet 05/27/19 Unknown Rx Thiamine [Vitamin B-1] 100 mg PO QDAY tablet 05/27/19 Unknown Rx carvediloL [Coreg] 12.5 mg PO BID #60 tablet 05/27/19 Unknown Rx lisinopriL [Zestril TAB] 40 mg PO QDAY #30 tablet 05/27/19 Unknown Rx hydrALAZINE [Apresoline TAB] 25 mg PO Q8HR 30 Days #90 tab 06/24/19 Unknown Rx Ibuprofen [Motrin] 800 mg PO Q8HR PRN #30 tablet 02/02/20 Unknown Rx methOCARBAMOL [Robaxin TAB] 750 mg PO Q8H PRN #30 tablet 02/02/20 Unknown Rx predniSONE [Deltasone] 60 mg PO QDAY #15 tab 02/02/20 Unknown Rx traMADoL [Ultram] 50 mg PO Q6HR PRN #12 tablet 02/02/20 Unknown Rx Allergies Allergy/AdvReac Type Severity Reaction Status Date / Time No Known Allergies Allergy Verified 06/16/18 18:08 Heart Score - HEART Score History: Slightly suspicious EKG: Non-specific Age: < 45 Risk factors: > 3 risk factors or hx of atherosclerotic disease Troponin: 1-3x normal limit HEART Score: 4 - Critical Actions Critical Actions: 4-6 pts:12-16.6% risk of adverse cardiac event. Should be admitted - Past Medical History Previous Medical History?: Yes Hx Hypertension: Yes Hx Congestive Heart Failure: Yes Hx GERD: Yes Hx Arthritis: Yes Hx COPD: Yes - Surgical History Past Surgical History?: Yes Additional Surgical History: Hernia repair - Social History Smoking Status: Current Every Day Smoker - Medications Home Medications: Home Medications Medication Instructions Recorded Confirmed Last Taken Type Aspirin [Aspirin BABY CHEW TAB] 81 mg PO QDAY #30 tab.chew 05/27/19 06/21/20 Unknown Rx Folic Acid [Folvite] 1 mg PO QDAY tablet 05/27/19 06/21/20 Unknown Rx Spironolactone [Aldactone] 25 mg PO QDAY #30 tablet 05/27/19 06/21/20 Unknown Rx Thiamine [Vitamin B-1] 100 mg PO QDAY tablet 05/27/19 06/21/20 Unknown Rx carvediloL [Coreg] 12.5 mg PO BID #60 tablet 05/27/19 06/21/20 Unknown Rx lisinopriL [Zestril TAB] 40 mg PO QDAY #30 tablet 05/27/19 06/21/20 Unknown Rx hydrALAZINE [Apresoline TAB] 25 mg PO Q8HR 30 Days #90 tab 06/24/19 06/21/20 Unknown Rx Ibuprofen [Motrin] 800 mg PO Q8HR PRN #30 tablet 02/02/20 06/21/20 Unknown Rx methOCARBAMOL [Robaxin TAB] 750 mg PO Q8H PRN #30 tablet 02/02/20 06/21/20 Unknown Rx predniSONE [Deltasone] 60 mg PO QDAY #15 tab 02/02/20 06/21/20 Unknown Rx traMADoL [Ultram] 50 mg PO Q6HR PRN #12 tablet 02/02/20 06/21/20 Unknown Rx Review of Systems ROS: Stated complaint: BACK PAIN Other details as noted in HPI Comment: All other systems reviewed and negative Constitutional: denies: chills, fever Eyes: denies: eye pain, vision change ENT: denies: ear pain, throat pain Respiratory: shortness of breath, SOB with exertion. denies: cough Cardiovascular: chest pain, edema Gastrointestinal: denies: abdominal pain, vomiting Genitourinary: denies: dysuria, discharge Musculoskeletal: back pain. denies: arthralgia Skin: denies: rash, lesions Neurological: denies: headache, weakness Medications and Allergies Allergies Allergy/AdvReac Type Severity Reaction Status Date / Time No Known Allergies Allergy Verified 06/16/18 18:08 Home Medications Medication Instructions Recorded Confirmed Last Taken Type Aspirin [Aspirin BABY CHEW TAB] 81 mg PO QDAY #30 tab.chew 05/27/19 06/21/20 Unknown Rx Folic Acid [Folvite] 1 mg PO QDAY tablet 05/27/19 06/21/20 Unknown Rx Spironolactone [Aldactone] 25 mg PO QDAY #30 tablet 05/27/19 06/21/20 Unknown Rx Thiamine [Vitamin B-1] 100 mg PO QDAY tablet 05/27/19 06/21/20 Unknown Rx carvediloL [Coreg] 12.5 mg PO BID #60 tablet 05/27/19 06/21/20 Unknown Rx lisinopriL [Zestril TAB] 40 mg PO QDAY #30 tablet 05/27/19 06/21/20 Unknown Rx hydrALAZINE [Apresoline TAB] 25 mg PO Q8HR 30 Days #90 tab 06/24/19 06/21/20 Unknown Rx Ibuprofen [Motrin] 800 mg PO Q8HR PRN #30 tablet 02/02/20 06/21/20 Unknown Rx methOCARBAMOL [Robaxin TAB] 750 mg PO Q8H PRN #30 tablet 02/02/20 06/21/20 Unknown Rx predniSONE [Deltasone] 60 mg PO QDAY #15 tab 02/02/20 06/21/20 Unknown Rx traMADoL [Ultram] 50 mg PO Q6HR PRN #12 tablet 02/02/20 06/21/20 Unknown Rx Exam - Constitutional Vitals: Temp Pulse Resp BP Pulse Ox 98.3 F 81 18 145/105 92 06/21/20 22:19 06/21/20 22:19 06/21/20 22:19 06/21/20 22:19 06/21/20 22:19 HEART Score - HEART Score EKG: Non-specific Age: < 45 Risk factors: > 3 risk factors or hx of atherosclerotic disease Troponin: Troponin T 0.057 ng/mL (0.00-0.029) H 06/21/20 16:30 Troponin: 1-3x normal limit - Critical Actions Critical Actions: 4-6 pts:12-16.6% risk of adverse cardiac event. Should be admitted Results - Labs CBC & Chem 7: 06/21/20 14:02 06/21/20 14:02 Labs: Laboratory Last Values WBC 9.4 K/mm3 (4.5-11.0) 06/21/20 14:02 RBC 4.70 M/mm3 (3.65-5.03) 06/21/20 14:02 Hgb 15.4 gm/dl (11.8-15.2) H 06/21/20 14:02 Hct 46.1 % (35.5-45.6) H 06/21/20 14:02 MCV 98 fl (84-94) H 06/21/20 14:02 MCH 33 pg (28-32) H 06/21/20 14:02 MCHC 33 % (32-34) 06/21/20 14:02 RDW 16.4 % (13.2-15.2) H 06/21/20 14:02 Plt Count 145 K/mm3 (140-440) 06/21/20 14:02 Lymph % (Auto) 4.9 % (13.4-35.0) L 06/21/20 14:02 Wells % (Auto) 11.5 % (0.0-7.3) H 06/21/20 14:02 Eos % (Auto) 0.1 % (0.0-4.3) 06/21/20 14:02 Baso % (Auto) 0.4 % (0.0-1.8) 06/21/20 14:02 Lymph # (Auto) 0.5 K/mm3 (1.2-5.4) L 06/21/20 14:02 Wells # (Auto) 1.1 K/mm3 (0.0-0.8) H 06/21/20 14:02 Eos # (Auto) 0.0 K/mm3 (0.0-0.4) 06/21/20 14:02 Baso # (Auto) 0.0 K/mm3 (0.0-0.1) 06/21/20 14:02 Seg Neutrophils % 83.1 % (40.0-70.0) H 06/21/20 14:02 Seg Neutrophils # 7.8 K/mm3 (1.8-7.7) H 06/21/20 14:02 PT 11.6 Sec. (12.2-14.9) L 06/21/20 14:02 INR 0.84 (0.87-1.13) L 06/21/20 14:02 APTT 22.5 Sec. (24.2-36.6) L 06/21/20 14:02 Sodium 148 mmol/L (137-145) H 06/21/20 14:02 Potassium 2.6 mmol/L (3.6-5.0) L* 06/21/20 14:02 Chloride 102.5 mmol/L (98-107) 06/21/20 14:02 Carbon Dioxide 30 mmol/L (22-30) 06/21/20 14:02 Anion Gap 18 mmol/L 06/21/20 14:02 BUN 22 mg/dL (9-20) H 06/21/20 14:02 Creatinine 1.0 mg/dL (0.8-1.3) 06/21/20 14:02 Estimated GFR > 60 ml/min 06/21/20 14:02 BUN/Creatinine Ratio 22 % 06/21/20 14:02 Glucose 136 mg/dL (75-100) H 06/21/20 14:02 Calcium 9.3 mg/dL (8.4-10.2) 06/21/20 14:02 Magnesium 2.40 mg/dL (1.7-2.3) H 06/21/20 14:02 Total Bilirubin 0.40 mg/dL (0.1-1.2) 06/21/20 14:02 AST 24 units/L (5-40) 06/21/20 14:02 ALT 38 units/L (7-56) 06/21/20 14:02 Alkaline Phosphatase 65 units/L (35-129) 06/21/20 14:02 Troponin T 0.057 ng/mL (0.00-0.029) H 06/21/20 16:30 NT-Pro-B Natriuret Pep 9475 pg/mL (0-450) H 06/21/20 14:02 Total Protein 6.5 g/dL (6.3-8.2) 06/21/20 14:02 Albumin 4.2 g/dL (3.9-5) 06/21/20 14:02 Albumin/Globulin Ratio 1.8 % 06/21/20 14:02 Triglycerides 114 mg/dL (2-149) 06/21/20 14:02 Cholesterol 192 mg/dL (50-199) 06/21/20 14:02 LDL Cholesterol Direct 124 mg/dL (50-130) 06/21/20 14:02 HDL Cholesterol 56 mg/dL (40-59) 06/21/20 14:02 Cholesterol/HDL Ratio 3.42 % 06/21/20 14:02 Urine Color Straw (Yellow) 06/21/20 16:55 Urine Turbidity Clear (Clear) 06/21/20 16:55 Urine pH 7.0 (5.0-7.0) 06/21/20 16:55 Ur Specific Florien 1.008 (1.003-1.030) 06/21/20 16:55 Urine Protein 30 mg/dl mg/dL (Negative) 06/21/20 16:55 Urine Glucose (UA) Neg mg/dL (Negative) 06/21/20 16:55 Urine Ketones Neg mg/dL (Negative) 06/21/20 16:55 Urine Blood Neg (Negative) 06/21/20 16:55 Urine Nitrite Neg (Negative) 06/21/20 16:55 Urine Bilirubin Neg (Negative) 06/21/20 16:55 Urine Urobilinogen < 2.0 mg/dL (<2.0) 06/21/20 16:55 Ur Leukocyte Esterase Tr (Negative) 06/21/20 16:55 Urine WBC (Auto) 2.0 /HPF (0.0-6.0) 06/21/20 16:55 Urine RBC (Auto) 3.0 /HPF (0.0-6.0) 10/26/20 16:55 U Epithel Cells (Auto) < 1.0 /HPF (0-13.0) 06/21/20 16:55 Short CBC 06/21/20 Range/Units 14:02 WBC 9.4 (4.5-11.0) K/mm3 Hgb 15.4 H (11.8-15.2) gm/dl Hct 46.1 H (35.5-45.6) % Plt Count 145 (140-440) K/mm3 BMP 06/21/20 14:02 Sodium 148 H Potassium 2.6 L* Chloride 102.5 Carbon Dioxide 30 BUN 22 H Creatinine 1.0 Glucose 136 H Calcium 9.3 Cardiac Enzymes 06/21/20 06/21/20 Range/Units 14:02 16:30 Troponin T 0.055 H 0.057 H (0.00-0.029) ng/mL Liver Function 06/21/20 Range/Units 14:02 Total Bilirubin 0.40 (0.1-1.2) mg/dL AST 24 (5-40) units/L ALT 38 (7-56) units/L Alkaline Phosphatase 65 (35-129) units/L Albumin 4.2 (3.9-5) g/dL Urine 06/21/20 Range/Units 16:55 Urine Color Straw (Yellow) Urine pH 7.0 (5.0-7.0) Ur Specific Florien 1.008 (1.003-1.030) Urine Protein 30 mg/dl (Negative) mg/dL Urine Glucose (UA) Neg (Negative) mg/dL Hyatt/IV: Voiding Method Toilet IV Catheter Type [Left Forearm INT / Saline Lock ] Assessment and Plan Advance Directives: Yes (Full code) VTE prophylaxis?: Chemical Plan of care discussed with patient/family: Yes - Patient Problems (1) CHF exacerbation Current Visit: Yes Status: Acute Qualifiers: Heart failure type: unspecified Qualified Code(s): I50.9 - Heart failure, unspecified Plan to address problem: IV Lasix and potassium every 12 hours Echocardiogram if not done recently Cardiology consult Daily intake output Daily weights (2) Hypokalemia Current Visit: Yes Status: Acute Plan to address problem: Supplemented with IV potassium and oral potassium (3) Edema Current Visit: Yes Status: Acute Qualifiers: Edema type: unspecified Qualified Code(s): R60.9 - Edema, unspecified Plan to address problem: Continue Lasix (4) Elevated troponin Current Visit: Yes Status: Acute (5) HTN (hypertension) Current Visit: Yes Status: Chronic Qualifiers: Hypertension type: essential hypertension Qualified Code(s): I10 - Essential (primary) hypertension Plan to address problem: Continue antihypertensives (6) NICM (nonischemic cardiomyopathy) Current Visit: Yes Status: Chronic Plan to address problem: Cardiology consult (7) DVT prophylaxis Current Visit: Yes Status: Acute
[2020-06-21] MEDS ORDERED: ACETAMINOPHEN 325 MG TAB PO PRN (22:44)
[2020-06-21] MEDS ORDERED: ONDANSETRON 4 MG/2 ML INJ IV PRN (22:44)
[2020-06-21] MEDS ORDERED: oxyCODONE /ACETAMINOPHEN 5-325MG TAB PO PRN (22:44)
[2020-06-21] MEDS ORDERED: hydrALAZINE 25 MG TAB ONE ×2 (23:13)
[2020-06-21] MEDS ORDERED: FUROSEMIDE 40 MG TAB ONE ×2 (23:13→23:30)
[2020-06-21] MEDS ORDERED: IBUPROFEN 400 MG TAB PO ONE ×2 (23:13→23:27)
[2020-06-21] MEDS ORDERED: carvediloL 12.5 MG TAB ONE ×2 (23:13)
[2020-06-22] MEDS ORDERED: SPIRONOLACTONE 25 MG TAB ONE ×2 (13:44→13:47)
[2020-06-22] MEDS ORDERED: carvediloL 12.5 MG TAB ONE ×2 (13:44→13:47)
[2020-06-22] MEDS ORDERED: traMADol 50 MG TAB ONE ×2 (13:47→13:48)
[2020-06-22] MEDS ORDERED: predniSONE 20 MG TAB ONE ×2 (13:47)
[2020-06-22] MEDS ORDERED: LISINOPRIL 40 MG TAB ONE ×2 (13:47)
[2020-06-22] MEDS ORDERED: hydrALAZINE 25 MG TAB ONE ×2 (13:47)
[2020-06-22] MEDS ORDERED: POTASSIUM CHLORIDE ER 20 MEQ TAB PO ONE (16:17)
--- NOTE | 2020-06-22 17:36 | Progress Note ---
Assessment and Plan Assessment and plan: Acute systolic HF exacerbation Cardiology consultation, diuresis Elevated troponin F/U enzymes, stress test per Cards HTN (hypertension) Cont BP meds NICM (nonischemic cardiomyopathy) DVT prophylaxis History Interval history: No new issues overnight Hospitalist Physical - Constitutional Vitals: Temp Pulse Resp BP Pulse Ox 98.3 F 81 18 145/105 92 06/21/20 22:19 06/21/20 22:19 06/21/20 22:19 06/21/20 22:19 06/21/20 22:19 General appearance: Present: no acute distress, well-nourished - EENT Eyes: Present: PERRL, EOM intact ENT: hearing intact, clear oral mucosa, dentition normal - Neck Neck: Present: supple, normal ROM - Respiratory Respiratory effort: normal Respiratory: bilateral: CTA - Cardiovascular Rhythm: regular Heart Sounds: Present: S1 & S2. Absent: gallop, rub - Extremities Extremities: no ischemia, No edema, Full ROM - Abdominal General gastrointestinal: soft, non-tender, non-distended, normal bowel sounds - Integumentary Integumentary: Present: clear, warm, dry - Neurologic Neurologic: CNII-XII intact, moves all extremities HEART Score - HEART Score EKG: Non-specific Age: < 45 Risk factors: > 3 risk factors or hx of atherosclerotic disease Troponin: Troponin T 0.057 ng/mL (0.00-0.029) H 06/21/20 16:30 Troponin: 1-3x normal limit - Critical Actions Critical Actions: 4-6 pts:12-16.6% risk of adverse cardiac event. Should be admitted Results - Labs CBC & Chem 7: 06/21/20 14:02 06/21/20 14:02 Labs: Laboratory Last Values WBC 9.4 K/mm3 (4.5-11.0) 06/21/20 14:02 RBC 4.70 M/mm3 (3.65-5.03) 06/21/20 14:02 Hgb 15.4 gm/dl (11.8-15.2) H 06/21/20 14:02 Hct 46.1 % (35.5-45.6) H 06/21/20 14:02 MCV 98 fl (84-94) H 06/21/20 14:02 MCH 33 pg (28-32) H 06/21/20 14:02 MCHC 33 % (32-34) 06/21/20 14:02 RDW 16.4 % (13.2-15.2) H 06/21/20 14:02 Plt Count 145 K/mm3 (140-440) 06/21/20 14:02 Lymph % (Auto) 4.9 % (13.4-35.0) L 06/21/20 14:02 [place] % (Auto) 11.5 % (0.0-7.3) H 06/21/20 14:02 Eos % (Auto) 0.1 % (0.0-4.3) 06/21/20 14:02 Baso % (Auto) 0.4 % (0.0-1.8) 06/21/20 14:02 Lymph # (Auto) 0.5 K/mm3 (1.2-5.4) L 06/21/20 14:02 [place] # (Auto) 1.1 K/mm3 (0.0-0.8) H 06/21/20 14:02 Eos # (Auto) 0.0 K/mm3 (0.0-0.4) 06/21/20 14:02 Baso # (Auto) 0.0 K/mm3 (0.0-0.1) 06/21/20 14:02 Seg Neutrophils % 83.1 % (40.0-70.0) H 06/21/20 14:02 Seg Neutrophils # 7.8 K/mm3 (1.8-7.7) H 06/21/20 14:02 PT 11.6 Sec. (12.2-14.9) L 06/21/20 14:02 INR 0.84 (0.87-1.13) L 06/21/20 14:02 APTT 22.5 Sec. (24.2-36.6) L 06/21/20 14:02 Sodium 148 mmol/L (137-145) H 06/21/20 14:02 Potassium 2.6 mmol/L (3.6-5.0) L* 06/21/20 14:02 Chloride 102.5 mmol/L (98-107) 06/21/20 14:02 Carbon Dioxide 30 mmol/L (22-30) 06/21/20 14:02 Anion Gap 18 mmol/L 06/21/20 14:02 BUN 22 mg/dL (9-20) H 06/21/20 14:02 Creatinine 1.0 mg/dL (0.8-1.3) 06/21/20 14:02 Estimated GFR > 60 ml/min 06/21/20 14:02 BUN/Creatinine Ratio 22 % 06/21/20 14:02 Glucose 136 mg/dL (75-100) H 06/21/20 14:02 Hemoglobin A1c 6.9 % (4-6) H 06/21/20 14:02 Calcium 9.3 mg/dL (8.4-10.2) 06/21/20 14:02 Magnesium 2.40 mg/dL (1.7-2.3) H 06/21/20 14:02 Total Bilirubin 0.40 mg/dL (0.1-1.2) 06/21/20 14:02 AST 24 units/L (5-40) 06/21/20 14:02 ALT 38 units/L (7-56) 06/21/20 14:02 Alkaline Phosphatase 65 units/L (35-129) 06/21/20 14:02 Troponin T 0.057 ng/mL (0.00-0.029) H 06/21/20 16:30 NT-Pro-B Natriuret Pep 9475 pg/mL (0-450) H 06/21/20 14:02 Total Protein 6.5 g/dL (6.3-8.2) 06/21/20 14:02 Albumin 4.2 g/dL (3.9-5) 06/21/20 14:02 Albumin/Globulin Ratio 1.8 % 06/21/20 14:02 Triglycerides 114 mg/dL (2-149) 06/21/20 14:02 Cholesterol 192 mg/dL (50-199) 06/21/20 14:02 LDL Cholesterol Direct 124 mg/dL (50-130) 06/21/20 14:02 HDL Cholesterol 56 mg/dL (40-59) 06/21/20 14:02 Cholesterol/HDL Ratio 3.42 % 06/21/20 14:02 Urine Color Straw (Yellow) 06/21/20 16:55 Urine Turbidity Clear (Clear) 06/21/20 16:55 Urine pH 7.0 (5.0-7.0) 06/21/20 16:55 Ur Specific [place] 1.008 (1.003-1.030) 06/21/20 16:55 Urine Protein 30 mg/dl mg/dL (Negative) 06/21/20 16:55 Urine Glucose (UA) Neg mg/dL (Negative) 06/21/20 16:55 Urine Ketones Neg mg/dL (Negative) 06/21/20 16:55 Urine Blood Neg (Negative) 06/21/20 16:55 Urine Nitrite Neg (Negative) 06/21/20 16:55 Urine Bilirubin Neg (Negative) 06/21/20 16:55 Urine Urobilinogen < 2.0 mg/dL (<2.0) 06/21/20 16:55 Ur Leukocyte Esterase Tr (Negative) 06/21/20 16:55 Urine WBC (Auto) 2.0 /HPF (0.0-6.0) 06/21/20 16:55 Urine RBC (Auto) 3.0 /HPF (0.0-6.0) 06/21/20 16:55 U Epithel Cells (Auto) < 1.0 /HPF (0-13.0) 06/21/20 16:55 Hyatt/IV: Voiding Method Toilet IV Catheter Type [Left Forearm INT / Saline Lock ] Active Medications - Current Medications Current Medications: Generic Name Dose Route Start Last Admin Trade Name Freq PRN Reason Stop Dose Admin Acetaminophen 650 mg 06/21/20 22:44 Tylenol PO Q4H PRN Pain MILD(1-3)/Fever >100.5/YU Aspirin 81 mg 06/22/20 10:00 Baby Aspirin PO QDAY [facility] Carvedilol 12.5 mg 06/21/20 23:00 Coreg PO BID [facility] Famotidine 20 mg 06/22/20 10:00 Pepcid PO BID [facility] Folic Acid 1 mg 06/22/20 10:00 Folvite PO QDAY [facility] Furosemide 80 mg 06/22/20 06:00 Lasix PO 0600,1800 [facility] Hydralazine HCl 25 mg 06/21/20 23:00 Apresoline PO Q8HR [facility] Hydromorphone HCl 0.5 mg 06/21/20 22:44 Dilaudid IV Q3H PRN Pain , Severe (7-10) Potassium Chloride 10 meq in 100 mls @ 100 mls/hr 06/21/20 23:00 Kcl 10meq/100ml IV 06/22/20 02:59 Q1H [facility] Ibuprofen 800 mg 06/21/20 22:43 Ibuprofen PO Q8HR PRN Pain , Severe (7-10) Lisinopril 40 mg 06/22/20 10:00 Zestril PO QDAY [facility] Methocarbamol 750 mg 06/21/20 22:43 Robaxin PO Q8H PRN Muscle Spasm Ondansetron HCl 4 mg 06/21/20 22:44 Zofran IV Q8H PRN Nausea And Vomiting Oxycodone/Acetaminophen 1 tab 06/21/20 22:44 Percocet 5/325 PO Q6H PRN Pain, Moderate (4-6) Potassium Chloride 40 meq 06/21/20 23:00 K-Dur PO 06/22/20 05:01 Q3H [facility] Potassium Chloride 20 meq 06/22/20 18:00 K-Dur PO Q12H [facility] Prednisone 60 mg 06/22/20 10:00 Deltasone PO QDAY [facility] Sodium Chloride 10 ml 06/21/20 23:00 Sodium Chloride Flush Syringe 10 Ml IV BID [facility] Sodium Chloride 10 ml 06/21/20 22:44 Sodium Chloride Flush Syringe 10 Ml IV PRN PRN LINE FLUSH Spironolactone 25 mg 06/22/20 10:00 Aldactone PO QDAY [facility] Thiamine HCl 100 mg 06/22/20 10:00 Vitamin B-1 PO QDAY [facility] Tramadol HCl 50 mg 06/21/20 22:43 Ultram PO Q6HR PRN PAIN
[2020-06-22] MEDS ORDERED: traMADol 50 MG TAB PO PRN (17:40)
--- NOTE | 2020-06-22 18:10 | Consultation ---
History of Present Illness Consult date: 06/22/20 Consult reason: congestive heart failure, hypertension History of present illness: Patient is a 40-year-old man with a history of dilated cardiomyopathy with chronic systolic heart failure. He is under the care of another finished cloth checker. He presents to the hospital at this time with shortness of breath, edema and findings consistent with acute on chronic systolic heart failure. EKG is sinus rhythm, left ventricle hypertrophy and repolarization abnormalities of LVH. The last echocardiogram in the record is from a year ago, reported left ventricular systolic ejection fraction 30 to 35%. Past History Past Medical History: heart failure, hypertension Medications and Allergies Allergies Allergy/AdvReac Type Severity Reaction Status Date / Time No Known Allergies Allergy Verified 06/16/18 18:08 Home Medications Medication Instructions Recorded Confirmed Last Taken Type Aspirin [Aspirin BABY CHEW TAB] 81 mg PO QDAY #30 tab.chew 05/27/19 06/21/20 Unknown Rx Folic Acid [Folvite] 1 mg PO QDAY tablet 05/27/19 06/21/20 Unknown Rx Spironolactone [Aldactone] 25 mg PO QDAY #30 tablet 05/27/19 06/21/20 Unknown Rx Thiamine [Vitamin B-1] 100 mg PO QDAY tablet 05/27/19 06/21/20 Unknown Rx carvediloL [Coreg] 12.5 mg PO BID #60 tablet 05/27/19 06/21/20 Unknown Rx lisinopriL [Zestril TAB] 40 mg PO QDAY #30 tablet 05/27/19 06/21/20 Unknown Rx hydrALAZINE [Apresoline TAB] 25 mg PO Q8HR 30 Days #90 tab 06/24/19 06/21/20 Unknown Rx Ibuprofen [Motrin] 800 mg PO Q8HR PRN #30 tablet 02/02/20 06/21/20 Unknown Rx methOCARBAMOL [Robaxin TAB] 750 mg PO Q8H PRN #30 tablet 02/02/20 06/21/20 Unknown Rx predniSONE [Deltasone] 60 mg PO QDAY #15 tab 02/02/20 06/21/20 Unknown Rx traMADoL [Ultram] 50 mg PO Q6HR PRN #12 tablet 02/02/20 06/21/20 Unknown Rx Active Meds: Active Medications Acetaminophen (Tylenol) 650 mg PO Q4H PRN PRN Reason: Pain MILD(1-3)/Fever >100.5/YU Aspirin (Baby Aspirin) 81 mg PO QDAY [facility] Carvedilol (Coreg) 12.5 mg PO BID [facility] Famotidine (Pepcid) 20 mg PO BID [facility] Folic Acid (Folvite) 1 mg PO QDAY [facility] Furosemide (Lasix) 80 mg PO 0600,1800 [facility] Hydralazine HCl (Apresoline) 25 mg PO Q8HR [facility] Hydromorphone HCl (Dilaudid) 0.5 mg IV Q3H PRN PRN Reason: Pain , Severe (7-10) Ibuprofen (Ibuprofen) 800 mg PO Q8HR PRN PRN Reason: Pain , Severe (7-10) Lisinopril (Zestril) 40 mg PO QDAY [facility] Methocarbamol (Robaxin) 750 mg PO Q8H PRN PRN Reason: Muscle Spasm Ondansetron HCl (Zofran) 4 mg IV Q8H PRN PRN Reason: Nausea And Vomiting Oxycodone/Acetaminophen (Percocet 5/325) 1 tab PO Q6H PRN PRN Reason: Pain, Moderate (4-6) Potassium Chloride (K-Dur) 20 meq PO Q12HR [facility] Prednisone (Deltasone) 60 mg PO QDAY [facility] Sodium Chloride (Sodium Chloride Flush Syringe 10 Ml) 10 ml IV BID [facility] Sodium Chloride (Sodium Chloride Flush Syringe 10 Ml) 10 ml IV PRN PRN PRN Reason: LINE FLUSH Spironolactone (Aldactone) 25 mg PO QDAY [facility] Thiamine HCl (Vitamin B-1) 100 mg PO QDAY [facility] Tramadol HCl (Ultram) 50 mg PO Q6H PRN PRN Reason: Pain, Moderate (4-6) Review of Systems Cardiovascular: orthopnea, edema, shortness of breath, no chest pain, no palpitations, no rapid/irregular heart beat, no syncope, no lightheadedness Physical Examination Vital Signs Temp Pulse Resp BP Pulse Ox 98.4 F 86 18 162/111 97 06/21/20 13:30 06/21/20 13:30 06/21/20 13:30 06/21/20 13:30 06/21/20 13:30 General appearance: no acute distress HEENT: Positive: PERRL Neck: Positive: neck supple Cardiac: Positive: Reg Rate and Rhythm Lungs: Positive: Decreased Breath Sounds Neuro: Positive: Grossly Intact Abdomen: Positive: Soft Male genitourinary: Positive: deferred Skin: Positive: Clear Extremities: Present: +1 Edema Results 06/21/20 14:02 06/23/20 12:50 EKG interpretations - Telemetry EKG Rhythm: Sinus Rhythm Assessment and Plan - Patient Problems (1) Acute on chronic systolic heart failure Current Visit: Yes Status: Acute Plan to address problem: In addition to aggressive diuretic therapy, will continue guideline directed medical therapy for chronic systolic left ventricular failure. Patient will be referred to his primary finished cloth checker Dr. Lopez for further management of his failure.
[2020-06-22] MEDS: FUROSEMIDE 40 MG TAB PO SCH (21:15)
[2020-06-22] MEDS: FAMOTIDINE 20 MG TAB PO SCH (21:56)
[2020-06-22] MEDS: carvediloL 12.5 MG TAB PO SCH (21:56)
[2020-06-22] MEDS: hydrALAZINE 25 MG TAB PO SCH (21:57)
[2020-06-22] MEDS: POTASSIUM CHLORIDE ER 20 MEQ TAB PO SCH ×2 (21:57→21:59)
[2020-06-23] MEDS: hydrALAZINE 25 MG TAB PO SCH ×7 (05:48→22:12)
[2020-06-23] MEDS: FUROSEMIDE 40 MG TAB PO SCH ×3 (05:48→17:27)
[2020-06-23] MEDS: SPIRONOLACTONE 25 MG TAB PO SCH ×2 (08:34→15:54)
[2020-06-23] MEDS: LISINOPRIL 40 MG TAB PO SCH ×2 (08:35→15:55)
[2020-06-23] MEDS: carvediloL 12.5 MG TAB PO SCH ×4 (08:36→22:13)
[2020-06-23] MEDS: HYDROmorphone 1 MG/1 ML INJ IV PRN ×3 (08:37→17:29)
[2020-06-23] MEDS: ASPIRIN 81 MG TAB CHEW PO SCH ×2 (10:06→16:55)
[2020-06-23] MEDS: predniSONE 20 MG TAB PO SCH ×2 (10:07→16:55)
[2020-06-23] MEDS: POTASSIUM CHLORIDE ER 20 MEQ TAB PO SCH ×4 (10:07→22:12)
[2020-06-23] MEDS: THIAMINE 100 MG TAB PO SCH ×2 (10:08→16:56)
[2020-06-23] MEDS: FOLIC ACID 1 MG TAB PO SCH ×2 (10:08→15:54)
[2020-06-23] MEDS: FAMOTIDINE 20 MG TAB PO SCH ×3 (10:10→22:11)
--- NOTE | 2020-06-23 12:14 | Progress Note ---
Assessment and Plan Assessment and plan: Acute on chronic combined systolic and diastolic HF exacerbation Cardiology consultation, diuresis Elevated troponin F/U enzymes, stress test per Cards HTN (hypertension) Cont BP meds NICM (nonischemic cardiomyopathy) DVT prophylaxis. 06/15/2020. Continue heart failure pathway per cardiology recommendations. Continue Coreg, lisinopril, Aldactone and Lasix. Await cardiology recommendations regarding stress test. Patient with stress test May 2019 which was found to be normal. Echocardiogram from 2018 revealed EF of 40% and left ventricular hypertrophy. History Interval history: No new issues overnight Hospitalist Physical - Constitutional Vitals: Temp Pulse Resp BP Pulse Ox 98.7 F 76 18 155/124 95 06/23/20 12:03 06/23/20 12:03 06/23/20 12:03 06/23/20 12:03 06/23/20 12:03 General appearance: Present: no acute distress, well-nourished - EENT Eyes: Present: PERRL, EOM intact ENT: hearing intact, clear oral mucosa, dentition normal - Neck Neck: Present: supple, normal ROM - Respiratory Respiratory effort: normal Respiratory: bilateral: CTA - Cardiovascular Rhythm: regular Heart Sounds: Present: S1 & S2. Absent: gallop, rub - Extremities Extremities: no ischemia, No edema, Full ROM - Abdominal General gastrointestinal: soft, non-tender, non-distended, normal bowel sounds - Integumentary Integumentary: Present: clear, warm, dry - Neurologic Neurologic: CNII-XII intact, moves all extremities HEART Score - HEART Score EKG: Non-specific Age: < 45 Risk factors: > 3 risk factors or hx of atherosclerotic disease Troponin: Troponin T 0.057 ng/mL (0.00-0.029) H 06/21/20 16:30 Troponin: 1-3x normal limit - Critical Actions Critical Actions: 4-6 pts:12-16.6% risk of adverse cardiac event. Should be admitted Results - Labs CBC & Chem 7: 06/21/20 14:02 06/21/20 14:02 Labs: Laboratory Last Values WBC 9.4 K/mm3 (4.5-11.0) 06/21/20 14:02 RBC 4.70 M/mm3 (3.65-5.03) 06/21/20 14:02 Hgb 15.4 gm/dl (11.8-15.2) H 06/21/20 14:02 Hct 46.1 % (35.5-45.6) H 06/21/20 14:02 MCV 98 fl (84-94) H 06/21/20 14:02 MCH 33 pg (28-32) H 06/21/20 14:02 MCHC 33 % (32-34) 06/21/20 14:02 RDW 16.4 % (13.2-15.2) H 06/21/20 14:02 Plt Count 145 K/mm3 (140-440) 06/21/20 14:02 Lymph % (Auto) 4.9 % (13.4-35.0) L 06/21/20 14:02 [place] % (Auto) 11.5 % (0.0-7.3) H 06/21/20 14:02 Eos % (Auto) 0.1 % (0.0-4.3) 06/21/20 14:02 Baso % (Auto) 0.4 % (0.0-1.8) 06/21/20 14:02 Lymph # (Auto) 0.5 K/mm3 (1.2-5.4) L 06/21/20 14:02 [place] # (Auto) 1.1 K/mm3 (0.0-0.8) H 06/21/20 14:02 Eos # (Auto) 0.0 K/mm3 (0.0-0.4) 06/21/20 14:02 Baso # (Auto) 0.0 K/mm3 (0.0-0.1) 06/21/20 14:02 Seg Neutrophils % 83.1 % (40.0-70.0) H 06/21/20 14:02 Seg Neutrophils # 7.8 K/mm3 (1.8-7.7) H 06/21/20 14:02 PT 11.6 Sec. (12.2-14.9) L 06/21/20 14:02 INR 0.84 (0.87-1.13) L 06/21/20 14:02 APTT 22.5 Sec. (24.2-36.6) L 06/21/20 14:02 Sodium 148 mmol/L (137-145) H 06/21/20 14:02 Potassium 2.6 mmol/L (3.6-5.0) L* 06/21/20 14:02 Chloride 102.5 mmol/L (98-107) 06/21/20 14:02 Carbon Dioxide 30 mmol/L (22-30) 06/21/20 14:02 Anion Gap 18 mmol/L 06/21/20 14:02 BUN 22 mg/dL (9-20) H 06/21/20 14:02 Creatinine 1.0 mg/dL (0.8-1.3) 06/21/20 14:02 Estimated GFR > 60 ml/min 06/21/20 14:02 BUN/Creatinine Ratio 22 % 06/21/20 14:02 Glucose 136 mg/dL (75-100) H 06/21/20 14:02 Hemoglobin A1c 6.9 % (4-6) H 06/21/20 14:02 Calcium 9.3 mg/dL (8.4-10.2) 06/21/20 14:02 Magnesium 2.40 mg/dL (1.7-2.3) H 06/21/20 14:02 Total Bilirubin 0.40 mg/dL (0.1-1.2) 06/21/20 14:02 AST 24 units/L (5-40) 06/21/20 14:02 ALT 38 units/L (7-56) 06/21/20 14:02 Alkaline Phosphatase 65 units/L (35-129) 06/21/20 14:02 Troponin T 0.057 ng/mL (0.00-0.029) H 06/21/20 16:30 NT-Pro-B Natriuret Pep 9475 pg/mL (0-450) H 06/21/20 14:02 Total Protein 6.5 g/dL (6.3-8.2) 06/21/20 14:02 Albumin 4.2 g/dL (3.9-5) 06/21/20 14:02 Albumin/Globulin Ratio 1.8 % 06/21/20 14:02 Triglycerides 114 mg/dL (2-149) 06/21/20 14:02 Cholesterol 192 mg/dL (50-199) 06/21/20 14:02 LDL Cholesterol Direct 124 mg/dL (50-130) 06/21/20 14:02 HDL Cholesterol 56 mg/dL (40-59) 06/21/20 14:02 Cholesterol/HDL Ratio 3.42 % 06/21/20 14:02 Urine Color Straw (Yellow) 06/21/20 16:55 Urine Turbidity Clear (Clear) 06/21/20 16:55 Urine pH 7.0 (5.0-7.0) 06/21/20 16:55 Ur Specific [place] 1.008 (1.003-1.030) 06/21/20 16:55 Urine Protein 30 mg/dl mg/dL (Negative) 06/21/20 16:55 Urine Glucose (UA) Neg mg/dL (Negative) 06/21/20 16:55 Urine Ketones Neg mg/dL (Negative) 06/21/20 16:55 Urine Blood Neg (Negative) 06/21/20 16:55 Urine Nitrite Neg (Negative) 06/21/20 16:55 Urine Bilirubin Neg (Negative) 06/21/20 16:55 Urine Urobilinogen < 2.0 mg/dL (<2.0) 06/21/20 16:55 Ur Leukocyte Esterase Tr (Negative) 06/21/20 16:55 Urine WBC (Auto) 2.0 /HPF (0.0-6.0) 06/21/20 16:55 Urine RBC (Auto) 3.0 /HPF (0.0-6.0) 06/21/20 16:55 U Epithel Cells (Auto) < 1.0 /HPF (0-13.0) 06/21/20 16:55 Hyatt/IV: Voiding Method Toilet IV Catheter Type [Left Forearm INT / Saline Lock ] Active Medications - Current Medications Current Medications: Generic Name Dose Route Start Last Admin Trade Name Freq PRN Reason Stop Dose Admin Acetaminophen 650 mg 06/21/20 22:44 Tylenol PO Q4H PRN Pain MILD(1-3)/Fever >100.5/YU Aspirin 81 mg 06/22/20 10:00 06/23/20 10:06 Baby Aspirin PO 81 mg QDAY [facility] Administration Carvedilol 12.5 mg 06/21/20 23:00 06/23/20 08:36 Coreg PO 12.5 mg BID [facility] Administration Famotidine 20 mg 06/22/20 10:00 06/23/20 10:10 Pepcid PO 20 mg BID [facility] Administration Folic Acid 1 mg 06/22/20 10:00 06/23/20 10:08 Folvite PO 1 mg QDAY [facility] Administration Furosemide 80 mg 06/22/20 06:00 06/23/20 05:48 Lasix PO 80 mg 0600,1800 [facility] Administration Hydralazine HCl 25 mg 06/21/20 23:00 06/23/20 05:48 Apresoline PO 25 mg Q8HR [facility] Administration Hydromorphone HCl 0.5 mg 06/21/20 22:44 06/23/20 08:37 Dilaudid IV 0.5 mg Q3H PRN Administration Pain , Severe (7-10) Ibuprofen 800 mg 06/21/20 22:43 Ibuprofen PO Q8HR PRN Pain , Severe (7-10) Lisinopril 40 mg 06/22/20 10:00 06/23/20 08:35 Zestril PO 40 mg QDAY [facility] Administration Methocarbamol 750 mg 06/21/20 22:43 Robaxin PO Q8H PRN Muscle Spasm Ondansetron HCl 4 mg 06/21/20 22:44 Zofran IV Q8H PRN Nausea And Vomiting Oxycodone/Acetaminophen 1 tab 06/21/20 22:44 Percocet 5/325 PO Q6H PRN Pain, Moderate (4-6) Potassium Chloride 20 meq 06/22/20 22:00 06/23/20 10:07 K-Dur PO 20 meq Q12HR [facility] Administration Prednisone 60 mg 06/22/20 10:00 06/23/20 10:07 Deltasone PO 60 mg QDAY [facility] Administration Sodium Chloride 10 ml 06/21/20 23:00 06/22/20 22:00 Sodium Chloride Flush Syringe 10 Ml IV 10 ml BID [facility] Administration Sodium Chloride 10 ml 06/21/20 22:44 Sodium Chloride Flush Syringe 10 Ml IV PRN PRN LINE FLUSH Spironolactone 25 mg 06/22/20 10:00 06/23/20 08:34 Aldactone PO 25 mg QDAY [facility] Administration Thiamine HCl 100 mg 06/22/20 10:00 06/23/20 10:08 Vitamin B-1 PO 100 mg QDAY [facility] Administration Tramadol HCl 50 mg 06/22/20 17:40 Ultram PO Q6H PRN Pain, Moderate (4-6)
--- NOTE | 2020-06-23 12:35 | Progress Note ---
Assessment and Plan tte from our office 06/09/2020 reviewed - EF 40-45%, mod LVH, grade 2 diastolic dysfunction. Currently stable cardiac status. Pt appears to be nearing/at euvolemia. Pt may discharge from cardiology standpoint on home cardiac regimen. Recommend pt follow up in our office with Dr. Lopez within 1-2 weeks ([phone] Pt verbalizes understanding. Pt seen in conjunction with Dr. Lopez who agrees with the assessment and plan of care. - Patient Problems (1) Acute on chronic HFrEF (heart failure with reduced ejection fraction) Current Visit: Yes Status: Acute (2) NICM (nonischemic cardiomyopathy) Current Visit: Yes Status: Chronic (3) COPD (chronic obstructive pulmonary disease) Current Visit: Yes Status: Chronic (4) Elevated troponin Current Visit: Yes Status: Acute (5) Hypokalemia Current Visit: Yes Status: Acute (6) HTN (hypertension) Current Visit: Yes Status: Chronic Qualifiers: Hypertension type: essential hypertension Qualified Code(s): I10 - Essential (primary) hypertension (7) Gastroesophageal reflux disease Current Visit: Yes Status: Chronic Qualifiers: Esophagitis presence: without esophagitis Qualified Code(s): K21.9 - Gastro-esophageal reflux disease without esophagitis (8) Obesity Current Visit: Yes Status: Chronic Qualifiers: Obesity type: due to excess calories (9) Tobacco use Current Visit: Yes Status: Chronic Subjective Date of service: 06/23/20 Principal diagnosis: HF Interval history: pt lying flat comfortably in bed, states he is feeling better today. in SR HR 80s on tele. Objective Last Vital Signs Temp 98.7 F 06/23/20 12:03 Pulse 76 06/23/20 12:03 Resp 18 06/23/20 12:03 BP 155/124 06/23/20 12:03 Pulse Ox 95 06/23/20 12:03 - Physical Examination General: No Apparent Distress HEENT: Positive: PERRL, Normocephaly, Mucus Membranes Moist Neck: Positive: neck supple, trachea midline Cardiac: Positive: Reg Rate and Rhythm, S1/S2 Lungs: Positive: Decreased Breath Sounds Neuro: Positive: Grossly Intact Abdomen: Negative: Tender Skin: Negative: Rash Musculoskeletal: No Pain Extremities: Present: edema (trace BLE) - Imaging and Cardiology EKG: report reviewed, image reviewed - Telemetry EKG Rhythm: Sinus Rhythm
[2020-06-23 14:12] LABS: BUN/Creatinine Ratio 15; Blood Urea Nitrogen 17 mg/dL (9-20); Calcium 8.6 mg/dL (8.4-10.2); Hemolysis Index 5
[2020-06-23] MEDS ORDERED: POTASSIUM CHLORIDE ER 20 MEQ TAB PO NR (17:35)
[2020-06-23] MEDS ORDERED: hydrALAZINE 100 MG TAB PO SCH (20:00)
[2020-06-24] MEDS: hydrALAZINE 100 MG TAB PO SCH ×2 (05:36→14:36)
[2020-06-24] MEDS: FUROSEMIDE 40 MG TAB PO SCH ×2 (05:38→17:00)
[2020-06-24 05:49] LABS: Basophils % (Auto) 0.2 % (0.0-1.8); Eosinophils % (Auto) 0.1 % (0.0-4.3); Hematocrit 41.3 % (35.5-45.6); Hemoglobin 13.9 gm/dl (11.8-15.2); Lymphocytes # (Auto) 0.4 K/mm3 (1.2-5.4); Lymphocytes % (Auto) 4.8 % (13.4-35.0); Mean Corpuscular HGB Conc 34 % (32-34); Mean Corpuscular Volume 98 fl (84-94); Monocytes # (Auto) 0.9 K/mm3 (0.0-0.8); Monocytes % (Auto) 10.8 % (0.0-7.3); Platelet Count 131 K/mm3 (140-440); Red Cell Distribution Width 16.5 % (13.2-15.2)
[2020-06-24 05:57] LABS: BUN/Creatinine Ratio 18; Blood Urea Nitrogen 18 mg/dL (9-20); Calcium 8.4 mg/dL (8.4-10.2); Hemolysis Index 7
[2020-06-24] MEDS: ASPIRIN 81 MG TAB CHEW PO SCH (09:24)
[2020-06-24] MEDS: FAMOTIDINE 20 MG TAB PO SCH (09:24)
[2020-06-24] MEDS: POTASSIUM CHLORIDE ER 20 MEQ TAB PO SCH (09:24)
[2020-06-24] MEDS: predniSONE 20 MG TAB PO SCH (09:24)
[2020-06-24] MEDS: FOLIC ACID 1 MG TAB PO SCH (09:24)
[2020-06-24] MEDS: SPIRONOLACTONE 25 MG TAB PO SCH (09:25)
[2020-06-24] MEDS: THIAMINE 100 MG TAB PO SCH (09:25)
[2020-06-24] MEDS: carvediloL 12.5 MG TAB PO SCH (09:26)
[2020-06-24] MEDS: LISINOPRIL 40 MG TAB PO SCH (09:26)
[2020-06-24 09:29] LABS: Alanine Aminotransferase TNR units/L (7-56); Albumin TNR g/dL (3.9-5); BUN/Creatinine Ratio TNR; Blood Urea Nitrogen TNR mg/dL (9-20); Calcium TNR mg/dL (8.4-10.2); Hemolysis Index TNR
[2020-06-24 09:40] LABS: BUN/Creatinine Ratio 18; Blood Urea Nitrogen 18 mg/dL (9-20); Calcium 8.7 mg/dL (8.4-10.2); Hemolysis Index 11
--- NOTE | 2020-06-24 14:06 | Progress Note ---
Assessment and Plan tte from our office 06/09/2020 reviewed - EF 40-45%, mod LVH, grade 2 diastolic dysfunction. Currently stable cardiac status. Pt appears to be nearing/at euvolemia. Pt may discharge from cardiology standpoint on home cardiac regimen. Recommend pt follow up in our office with Dr. Lopez within 1-2 weeks ([phone]). Pt verbalizes understanding. Pt seen in conjunction with Dr. Lopez who agrees with the assessment and plan of care. - Patient Problems (1) Acute on chronic HFrEF (heart failure with reduced ejection fraction) Current Visit: Yes Status: Acute (2) NICM (nonischemic cardiomyopathy) Current Visit: Yes Status: Chronic (3) COPD (chronic obstructive pulmonary disease) Current Visit: Yes Status: Chronic (4) Elevated troponin Current Visit: Yes Status: Acute (5) Hypokalemia Current Visit: Yes Status: Acute (6) HTN (hypertension) Current Visit: Yes Status: Chronic Qualifiers: Hypertension type: essential hypertension Qualified Code(s): I10 - Essential (primary) hypertension (7) Gastroesophageal reflux disease Current Visit: Yes Status: Chronic Qualifiers: Esophagitis presence: without esophagitis Qualified Code(s): K21.9 - Gastro-esophageal reflux disease without esophagitis (8) Obesity Current Visit: Yes Status: Chronic Qualifiers: Obesity type: due to excess calories (9) Tobacco use Current Visit: Yes Status: Chronic Subjective Date of service: 06/24/20 Principal diagnosis: HF Interval history: pt walking around room without difficulty, states he is feeling well. in SR HR 80s-90s on tele. Objective Last Vital Signs Temp 98.3 F 06/24/20 11:57 Pulse 81 06/24/20 11:57 Resp 18 06/24/20 11:57 BP 133/96 06/24/20 11:57 Pulse Ox 92 06/24/20 11:57 - Physical Examination General: No Apparent Distress HEENT: Positive: PERRL Neck: Positive: neck supple Cardiac: Positive: Reg Rate and Rhythm, S1/S2 Lungs: Positive: Decreased Breath Sounds Neuro: Positive: Grossly Intact Abdomen: Positive: Soft Skin: Positive: Clear Musculoskeletal: No Pain Extremities: Present: +1 Edema - Labs and Meds Cardiac Enzymes 06/22/20 Range/Units 15:13 AST TNR CBC 06/24/20 Range/Units 05:20 WBC 8.7 (4.5-11.0) K/mm3 RBC 4.20 (3.65-5.03) M/mm3 Hgb 13.9 (11.8-15.2) gm/dl Hct 41.3 (35.5-45.6) % Plt Count 131 L (140-440) K/mm3 Lymph # (Auto) 0.4 L (1.2-5.4) K/mm3 [place] # (Auto) 0.9 H (0.0-0.8) K/mm3 Eos # (Auto) 0.0 (0.0-0.4) K/mm3 Baso # (Auto) 0.0 (0.0-0.1) K/mm3 Comprehensive Metabolic Panel 06/22/20 06/22/20 06/23/20 Range/Units 15:13 15:15 12:50 Sodium TNR 144 147 H Potassium TNR 2.6 L* 3.2 L D Chloride TNR 102.5 102.5 Carbon Dioxide TNR 31 H 29 BUN TNR 18 17 Creatinine TNR 1.0 1.1 Glucose TNR 158 H 126 H Calcium TNR 8.7 8.6 AST TNR ALT TNR Alkaline Phosphatase TNR Total Protein TNR Albumin TNR 06/24/20 Range/Units 05:20 Sodium 144 Potassium 3.2 L Chloride 101.2 Carbon Dioxide 29 BUN 18 Creatinine 1.0 Glucose 159 H Calcium 8.4 AST ALT Alkaline Phosphatase Total Protein Albumin - Imaging and Cardiology EKG: report reviewed, image reviewed
[2020-06-24 16:19] VITALS: BP 148/104
--- NOTE | 2020-06-24 16:47 | Discharge Summary ---
Providers - Providers Date of Admission: 06/21/20 16:53 Date of discharge: 06/24/20 Attending physician: JHOAN PINO 06/21/20 22:44 Consult to Physician [CONS] Routine Comment: Consulting Provider: AMNA GRANT Physician Instructions: Reason For Exam: CHF exacerbation Primary care physician: MANAGEMENT TRAINEE Hospitalization Condition: Serious Pertinent studies: Echocardiogram ejection fraction 40-45 Hospital course: This is a 40-year-old male presents to the emergency department with complaints of right-sided low back pain, generalized chest pain, shortness of breath, and edema. Patient has a history of an injury to his lower back from the summer and he was due to have a steroid injection to that area earlier today by his physician at [facility] orthopedic. However he was found to have very elevated blood pressure and they would not perform the procedure. Patient does also admit to some generalized chest pain, shortness of breath that worsens with exertion, and swelling of the legs and abdomen. He has a past medical history that includes COPD not oxygen dependent, nonischemic cardiomyopathy with an ejection fraction of 35 to 40% on echo 09/2019, CHF, hypertension, GERD and he is a tobacco smoker. The patient had a negative stress test in May 2019. He follows with Dr. Grant for cardiology. He does not have a primary care physician. No recent travel or sick contacts at home. He denies any fever, cough, nausea, vomiting or diaphoresis. No known alleviating factors. (1) CHF exacerbation Current Visit: Yes Status: Acute Qualifiers: Heart failure type: unspecified Qualified Code(s): I50.9 - Heart failure, unspecified Plan to address problem: Discharge patient on oral Lasix and potassium (2) Hypokalemia Current Visit: Yes Status: Acute Plan to address problem: Potassium level corrected (3) Edema Current Visit: Yes Status: Acute Qualifiers: Edema type: unspecified Qualified Code(s): R60.9 - Edema, unspecified Plan to address problem: Continue Lasix (4) Elevated troponin Nonspecific (5) HTN (hypertension) Current Visit: Yes Status: Chronic Qualifiers: Hypertension type: essential hypertension Qualified Code(s): I10 - Essential (primary) hypertension Plan to address problem: Continue antihypertensives Blood pressure controlled (6) NICM (nonischemic cardiomyopathy) Current Visit: Yes Status: Chronic Plan to address problem: Cardiology consult Disposition: DC-01 TO HOME OR SELFCARE - Discharge Diagnoses (1) CHF exacerbation Status: Acute Qualifiers: Heart failure type: unspecified Qualified Code(s): I50.9 - Heart failure, unspecified (2) Hypokalemia Status: Acute (3) Edema Status: Acute Qualifiers: Edema type: unspecified Qualified Code(s): R60.9 - Edema, unspecified (4) Elevated troponin Status: Acute (5) HTN (hypertension) Status: Chronic Qualifiers: Hypertension type: essential hypertension Qualified Code(s): I10 - Essential (primary) hypertension (6) NICM (nonischemic cardiomyopathy) Status: Chronic (7) DVT prophylaxis Status: Acute Core Measure Documentation - Palliative Care Palliative Care/ Comfort Measures: Not Applicable - Core Measures Any of the following diagnoses?: none Exam - Constitutional Vitals: Temp Pulse Resp BP Pulse Ox 98.5 F 84 20 148/104 97 06/24/20 16:18 06/24/20 16:18 06/24/20 16:18 06/24/20 16:18 06/24/20 16:18 General appearance: Present: no acute distress, well-nourished - EENT Eyes: Present: PERRL ENT: hearing intact, clear oral mucosa - Neck Neck: Present: supple, normal ROM - Respiratory Respiratory effort: normal Respiratory: bilateral: CTA - Cardiovascular Rhythm: regular Heart Sounds: Present: S1 & S2. Absent: rub, click - Extremities Extremities: pulses symmetrical, No edema Peripheral Pulses: within normal limits - Abdominal General gastrointestinal: Present: soft, non-tender, non-distended, normal bowel sounds Male genitourinary: Present: normal - Rectal Rectal Exam: deferred - Integumentary Integumentary: Present: clear, warm, dry - Musculoskeletal Musculoskeletal: gait normal, strength equal bilaterally - Psychiatric Psychiatric: appropriate mood/affect, intact judgment & insight - Neurologic Neurologic: CNII-XII intact, moves all extremities - Allied Health Allied health notes reviewed: nursing, case management Plan Activity: no restrictions Diet: low salt Follow up with: RACHEL GONZALEZ MD [Primary Care Provider] - 7 Days MILLICENT RAO MD [Staff Physician] - 7 Days
[2020-06-24] MEDS ORDERED: POTASSIUM CHLORIDE ER 20 MEQ TAB PO ONE (16:52)
== END 2020-06-24 17:53 | disposition home or self-care (01) ==
LOC: ED 12:39 → 4A 16:53
PROVIDERS: ADMIT Internal Medicine; ATTEND Internal Medicine
DX: I11.0 Hypertensive heart disease with heart failure (principal); I50.23 Acute on chronic systolic (congestive) heart failure; E87.6 Hypokalemia; I42.8 Other cardiomyopathies; K21.9 Gastro-esophageal reflux disease without esophagitis; M19.90 Unspecified osteoarthritis, unspecified site; J44.9 Chronic obstructive pulmonary disease, unspecified; R77.8 Other specified abnormalities of plasma proteins; R07.9 Chest pain, unspecified; R74.8 Abnormal levels of other serum enzymes; R60.9 Edema, unspecified; F17.200 Nicotine dependence, unspecified, uncomplicated; Z79.82 Long term (current) use of aspirin; Z98.890 Other specified postprocedural states; Z79.899 Other long term (current) drug therapy
CPT/HCPCS: 36415; 71046; 80048; 80053; 80061; 81001; 83036; 83735; 83880; 84484; 85025; 85610; 85730; 93005; 96374; 96375; 96376; 99291; G0378; J1170; J1940; J7512

== ENCOUNTER 2020-11-21 07:38 | Inpatient (IN) | payer OTHER ==
[2020-11-21] MEDS ORDERED: ASPIRIN 325 MG TAB PO ONE (07:47)
[2020-11-21] MEDS ORDERED: FUROSEMIDE 40 MG/4 ML INJ IV ONE (08:12)
[2020-11-21] MEDS ORDERED: ONDANSETRON 4 MG/2 ML INJ IV ONE (08:12)
[2020-11-21] MEDS ORDERED: fentaNYL 100 MCG/2 ML INJ IV ONE (08:12)
--- NOTE | 2020-11-21 08:17 | Emergency Department Report ---
HPI - General Chief Complaint: Dyspnea/Respdistress Time Seen by Provider: 11/21/20 08:05 - HPI HPI: Room 24 The patient is a 40-year-old male present with a chief complaint of bilateral lower extremity pain. Patient states he came to the emergency department because he had pain in bilateral lower extremities secondary to the edema. Patient states he has been compliant with his Lasix but is not removing the fluid. Patient admits to some shortness of breath which occurred last night but adamantly denies ever having any type of chest pain pressure tightness or discomfort. Patient denies history of fever or cough. Patient gives his lower extremity pain a score of 10/10 ED Past Medical Hx - Past Medical History Previous Medical History?: Yes Hx Hypertension: Yes Hx Congestive Heart Failure: Yes Hx GERD: Yes Hx Arthritis: Yes Hx COPD: Yes - Surgical History Past Surgical History?: Yes Additional Surgical History: Hernia repair - Family History Family history: no significant - Social History Smoking Status: Current Every Day Smoker (Black and milds) Substance Use Type: None (Denies illicit drug use) - Medications Home Medications: Home Medications Medication Instructions Recorded Confirmed Last Taken Type Ibuprofen [Motrin] 800 mg PO Q8HR PRN #30 tablet 02/02/20 06/21/20 Unknown Rx predniSONE [Deltasone] 60 mg PO QDAY #15 tab 02/02/20 06/21/20 Unknown Rx Aspirin [Aspirin BABY CHEW TAB] 81 mg PO QDAY 100 Days #30 tab.chew 06/24/20 Unknown Rx Famotidine [Pepcid] 20 mg PO BID #60 tablet 06/24/20 Unknown Rx Folic Acid [Folvite] 1 mg PO QDAY #30 tablet 06/24/20 Unknown Rx Furosemide [Lasix TAB] 80 mg PO 0600,1800 30 Days #60 06/24/20 Unknown Rx tablet Potassium Chloride [K-Dur] 20 meq PO Q12HR #60 tablet 06/24/20 Unknown Rx Spironolactone [Aldactone] 25 mg PO QDAY #30 tablet 06/24/20 Unknown Rx Spironolactone [Aldactone] 50 mg PO QDAY 30 Days #30 tablet 06/24/20 Unknown Rx Thiamine [Vitamin B-1] 100 mg PO QDAY #30 tablet 06/24/20 Unknown Rx carvediloL [Coreg] 12.5 mg PO BID 30 Days #60 tablet 06/24/20 Unknown Rx hydrALAZINE [Apresoline TAB] 25 mg PO Q8HR 30 Days #90 tab 06/24/20 Unknown Rx lisinopriL [Zestril TAB] 40 mg PO QDAY 30 Days #30 tablet 06/24/20 Unknown Rx methOCARBAMOL [Robaxin TAB] 750 mg PO Q8H PRN #90 tablet 06/24/20 Unknown Rx traMADoL [Ultram 50 MG tab] 50 mg PO Q12H PRN #60 tablet 06/24/20 Unknown Rx ED Review of Systems ROS: Stated complaint: MAYTE Other details as noted in HPI Constitutional: denies: fever Eyes: denies: eye pain ENT: denies: throat pain Respiratory: shortness of breath, SOB with exertion Cardiovascular: dyspnea on exertion. denies: chest pain Endocrine: no symptoms reported Gastrointestinal: denies: abdominal pain Genitourinary: denies: dysuria Musculoskeletal: denies: back pain Neurological: denies: headache Physical Exam - Physical Exam Vital Signs: Vital Signs 11/21/20 07:45 Temperature 98.2 F Pulse Rate 134 H Respiratory 26 H Rate Blood Pressure 145/103 O2 Sat by Pulse 95 Oximetry Physical Exam: GENERAL: The patient is well-developed well-nourished male lying on stretcher not appearing to be in acute distress. [] HEENT: Normocephalic. Atraumatic. Extraocular motions are intact. Patient has moist mucous membranes. NECK: Supple. Trachea midline CHEST/LUNGS: Clear to auscultation. There is no respiratory distress noted. HEART/CARDIOVASCULAR: Regular. There is tachycardia. There is no gallop rub or murmur. ABDOMEN: Abdomen is soft, nontender. Patient has normal bowel sounds. There is no abdominal distention. SKIN: There is no rash. There is 2-3+ bilateral lower extremity pitting edema. There is no diaphoresis. NEURO: The patient is awake, alert, and oriented. The patient is cooperative. The patient has no focal neurologic deficits. The patient has normal speech MUSCULOSKELETAL: There is no evidence of acute injury. ED Course Vital Signs 11/21/20 07:45 Temperature 98.2 F Pulse Rate 134 H Respiratory 26 H Rate Blood Pressure 145/103 O2 Sat by Pulse 95 Oximetry ED Medical Decision Making - Lab Data Result diagrams: 11/21/20 08:06 11/21/20 08:06 Laboratory Tests 11/21/20 11/21/20 11/21/20 08:06 08:06 10:21 WBC 14.6 H RBC 3.95 Hgb 12.4 Hct 37.2 MCV 94 MCH 31 MCHC 33 RDW 16.9 H Plt Count 230 Add Manual Diff Complete Total Counted 100 Seg Neutrophils % Blocker And Sewer Seg Neuts % (Manual) 96.0 H Lymphocytes % (Manual) 3.0 L Monocytes % (Manual) 1.0 Nucleated RBC % 1.0 H Seg Neutrophils # Man 14.0 H Band Neutrophils # 0.0 Lymphocytes # (Manual) 0.4 L Abs React Lymphs (Man) 0.0 Monocytes # (Manual) 0.1 Eosinophils # (Manual) 0.0 Basophils # (Manual) 0.0 Metamyelocytes # 0.0 Myelocytes # 0.0 Promyelocytes # 0.0 Blast Cells # 0.0 WBC Morphology Not Reportable Hypersegmented Neuts Not Reportable Hyposegmented Neuts Not Reportable Hypogranular Neuts Not Reportable Smudge Cells Not Reportable Toxic Granulation Not Reportable Toxic Vacuolation Not Reportable Dohle Bodies Not Reportable Pelger-Huet Anomaly Not Reportable Nadya Rods Not Reportable Platelet Estimate Consistent w auto Clumped Platelets Not Reportable Plt Clumps, EDTA Not Reportable Large Platelets Not Reportable Giant Platelets Not Reportable Platelet Satelliting Not Reportable Plt Morphology Comment Not Reportable RBC Morphology Not Reportable Dimorphic RBCs Not Reportable Polychromasia Rare Hypochromasia Not Reportable Poikilocytosis Not Reportable Anisocytosis Few Microcytosis Not Reportable Macrocytosis Not Reportable Spherocytes Not Reportable Pappenheimer Bodies Not Reportable Sickle Cells Not Reportable Target Cells Not Reportable Tear Drop Cells Not Reportable Ovalocytes Not Reportable Helmet Cells Not Reportable Boyd-[place] Bodies Not Reportable [place] Rings Not Reportable Yan Cells Not Reportable Bite Cells Not Reportable Crenated Cell Not Reportable Elliptocytes Not Reportable Acanthocytes (Spur) Not Reportable Rouleaux Not Reportable Hemoglobin C Crystals Not Reportable Schistocytes Not Reportable Malaria parasites Not Reportable Louie Bodies Not Reportable Hem Pathologist Commnt No Sodium 141 Potassium 2.9 L* Chloride 102.7 Carbon Dioxide 26 Anion Gap 15 BUN 15 Creatinine 1.1 Estimated GFR > 60 BUN/Creatinine Ratio 14 Glucose 110 H Calcium 7.9 L Total Bilirubin 0.80 AST 14 ALT 19 Alkaline Phosphatase 106 Troponin T 0.065 H NT-Pro-B Natriuret Pep 88047 H Total Protein 5.4 L Albumin 2.7 L Albumin/Globulin Ratio 1.0 - EKG Data -: EKG Interpreted by Me EKG shows normal: sinus rhythm Rate: tachycardia (140 bpm) - EKG Data Interpretation: unchanged when compared t (06/21/2020) - Radiology Data Radiology results: report reviewed (Chest x-ray), image reviewed (Chest x-ray) interpreted by me: Chest x-ray-no definite focal infiltrates, no pneumothorax. Cardiomegaly [facility] [address] [place] [address] XRay Report Signed Patient: MYRIAM MELARA MR#: [id number] : 1980 Acct:[id number] Age/Sex: 40 / M ADM Date: 11/21/20 Loc: ED Attending Dr: Ordering Physician: ZEFERINO COTTON MD Date of Service: 11/21/20 Procedure(s): XR chest 1V ap Accession Number(s): [id number] cc: ZEFERINO COTTON MD Fluoro Time In Minutes: CHEST 1 VIEW 11/21/2020 8:00 AM INDICATION / CLINICAL INFORMATION: sob. COMPARISON: 06/21/2020. FINDINGS: SUPPORT DEVICES: None. HEART / MEDIASTINUM: Stable cardiomegaly. LUNGS / PLEURA: Bilateral diffuse interstitial prominence and central vascular congestion. No pneumothorax. ADDITIONAL FINDINGS: No significant additional findings. IMPRESSION: 1. Cardiomegaly and interstitial prominence suggestive of pulmonary edema/congestive failure. Signer Name: Stefanie Kennedy MD Signed: 11/21/2020 8:23 AM Workstation Name: [id number] Transcribed By: SS Dictated By: STEFANIE KENNEDY Electronically Authenticated By: STEFANIE KENNEDY Signed Date/Time: 11/21/20822 DD/ 1 TD/TT: Print - Differential Diagnosis CHF exacerbation, peripheral edema Critical care attestation.: If time is entered above; I have spent that time in minutes in the direct care of this critically ill patient, excluding procedure time. ED Disposition Clinical Impression: CHF exacerbation, Pulmonary edema, Elevated troponin Disposition: DC-09 OP ADMIT IP TO THIS HOSP Is pt being admited?: Yes Does the pt Need Aspirin: Yes Condition: Fair Instructions: Pulmonary Edema (ED) Time of Disposition: 10:59 (Hospitalist paged)
--- NOTE | 2020-11-21 08:27 | XRay Report ---
CHEST 1 VIEW 11/21/2020 8:00 AM INDICATION / CLINICAL INFORMATION: sob. COMPARISON: 06/21/2020. FINDINGS: SUPPORT DEVICES: None. HEART / MEDIASTINUM: Stable cardiomegaly. LUNGS / PLEURA: Bilateral diffuse interstitial prominence and central vascular congestion. No pneumot horax. ADDITIONAL FINDINGS: No significant additional findings. IMPRESSION: 1. Cardiomegaly and interstitial prominence suggestive of pulmonary edema/congestive failure. Signer Name: Dick Kennedy MD Signed: 11/21/2020 8:23 AM Workstation Name: [id number]
[2020-11-21 08:31] LABS: Hematocrit 37.2 % (35.5-45.6); Hemoglobin 12.4 gm/dl (11.8-15.2); Mean Corpuscular HGB Conc 33 % (32-34); Mean Corpuscular Volume 94 fl (84-94); Platelet Count 230 K/mm3 (140-440); Red Blood Count 3.95 M/mm3 (3.65-5.03); Red Cell Distribution Width 16.9 % (13.2-15.2)
[2020-11-21 08:40] LABS: Alanine Aminotransferase 19 units/L (7-56); Albumin 2.7 g/dL (3.9-5); BUN/Creatinine Ratio 14; Blood Urea Nitrogen 15 mg/dL (9-20); Calcium 7.9 mg/dL (8.4-10.2); Hemolysis Index 9
[2020-11-21] MEDS ORDERED: POTASSIUM CHLORIDE ER 20 MEQ TAB PO ONE (09:11)
[2020-11-21 10:10] LABS: Total Cells Counted 100
[2020-11-21 10:14] LABS: Anisocytosis Few
[2020-11-21 10:15] LABS: Platelet Estimate Consistent w Auto
[2020-11-21 11:24] LABS: Chol/HDL Ratio 4.11 %
[2020-11-21] MEDS: HYDROmorphone 1 MG/1 ML INJ IV PRN ×3 (14:27→22:09)
[2020-11-21] MEDS ORDERED: ACETAMINOPHEN 325 MG TAB PO PRN ×2 (22:55→22:58)
[2020-11-21] MEDS ORDERED: METOCLOPRAMIDE 10 MG/2 ML INJ IV PRN (22:55)
[2020-11-21] MEDS ORDERED: ONDANSETRON 4 MG/2 ML INJ IV PRN ×2 (22:55→22:58)
--- NOTE | 2020-11-21 22:59 | History and Physical Report ---
History of Present Illness Date of examination: 11/21/20 Date of admission: 11/21/20 11:12 Chief complaint: Swelling of both the legs History of present illness: Male presents with bilateral lower extremity pain and swelling of both the legs. Patient has been compliant with Lasix but the swelling is not going down. Patient also has some shortness of breath since yesterday. Orthopnea present. No chest pain or pressure. Swelling of the legs has been going for a long time. Patient is being treated for hypertension and congestive heart failure and COPD. No exacerbating or relieving factors. Patient on Lasix. The patient is a 40-year-old male present with a chief complaint of bilateral lower extremity pain. Patient states he came to the emergency department because he had pain in bilateral lower extremities secondary to the edema. Patient states he has been compliant with his Lasix but is not removing the fluid. Patient admits to some shortness of breath which occurred last night but adamantly denies ever having any type of chest pain pressure tightness or discomfort. Patient denies history of fever or cough. Patient gives his lower extremity pain a score of 10/10 - Past Medical History Previous Medical History?: Yes --Hypertension: Yes --Congestive Heart Failure: Yes --GERD: Yes --Arthritis: Yes --COPD: Yes - Surgical History Past Surgical History?: Yes Additional Surgical History: Hernia repair - Family History Family history: no significant - Social History Smoking Status: Current Every Day Smoker (Black and milds) Substance Use Type: None (Denies illicit drug use) - Medications Home Medications: Home Medications Medication Instructions Recorded Confirmed Last Taken Type Ibuprofen [Motrin] 800 mg PO Q8HR PRN #30 tablet 02/02/20 06/21/20 Unknown Rx predniSONE [Deltasone] 60 mg PO QDAY #15 tab 02/02/20 06/21/20 Unknown Rx Aspirin [Aspirin BABY CHEW TAB] 81 mg PO QDAY 100 Days #30 tab.chew 06/24/20 Unknown Rx Famotidine [Pepcid] 20 mg PO BID #60 tablet 06/24/20 Unknown Rx Folic Acid [Folvite] 1 mg PO QDAY #30 tablet 06/24/20 Unknown Rx Furosemide [Lasix TAB] 80 mg PO 0600,1800 30 Days #60 06/24/20 Unknown Rx tablet Potassium Chloride [K-Dur] 20 meq PO Q12HR #60 tablet 06/24/20 Unknown Rx Spironolactone [Aldactone] 25 mg PO QDAY #30 tablet 06/24/20 Unknown Rx Spironolactone [Aldactone] 50 mg PO QDAY 30 Days #30 tablet 06/24/20 Unknown Rx Thiamine [Vitamin B-1] 100 mg PO QDAY #30 tablet 06/24/20 Unknown Rx carvediloL [Coreg] 12.5 mg PO BID 30 Days #60 tablet 06/24/20 Unknown Rx hydrALAZINE [Apresoline TAB] 25 mg PO Q8HR 30 Days #90 tab 06/24/20 Unknown Rx lisinopriL [Zestril TAB] 40 mg PO QDAY 30 Days #30 tablet 06/24/20 Unknown Rx methOCARBAMOL [Robaxin TAB] 750 mg PO Q8H PRN #90 tablet 06/24/20 Unknown Rx traMADoL [Ultram 50 MG tab] 50 mg PO Q12H PRN #60 tablet 06/24/20 Unknown Rx Review of Systems ROS: Stated complaint: MAYTE Other details as noted in HPI Constitutional: denies: fever Eyes: denies: eye pain ENT: denies: throat pain Respiratory: shortness of breath, SOB with exertion Cardiovascular: dyspnea on exertion. denies: chest pain Endocrine: no symptoms reported Gastrointestinal: denies: abdominal pain Genitourinary: denies: dysuria Musculoskeletal: denies: back pain Neurological: denies: headache Medications and Allergies Allergies Allergy/AdvReac Type Severity Reaction Status Date / Time No Known Allergies Allergy Verified 06/16/18 18:08 Home Medications Medication Instructions Recorded Confirmed Last Taken Type Aspirin [Aspirin BABY CHEW TAB] 81 mg PO QDAY 100 Days #30 tab.chew 06/24/20 11/21/20 Unknown Rx Folic Acid [Folvite] 1 mg PO QDAY #30 tablet 06/24/20 11/21/20 Unknown Rx carvediloL [Coreg] 12.5 mg PO BID 30 Days #60 tablet 06/24/20 11/21/20 Unknown Rx methOCARBAMOL [Robaxin TAB] 750 mg PO Q8H PRN #90 tablet 06/24/20 11/21/20 Unknown Rx Furosemide [Lasix TAB] 40 mg PO BID 11/21/20 11/21/20 Unknown History Hydralazine HCl 50 mg PO BID 11/21/20 11/21/20 Unknown History Spironolactone [Aldactone] 25 mg PO QDAY 11/21/20 11/21/20 Unknown History methOCARBAMOL [Robaxin TAB] 1 tab PO Q8HR PRN 11/21/20 11/21/20 Unknown History Active Meds: Active Medications Hydromorphone HCl (Hydromorphone 1 Mg/1 Ml Inj) 0.5 mg IV Q3H PRN PRN Reason: Pain , Severe (7-10) Last Admin: 11/21/20 22:09 Dose: 0.5 mg Documented by: Exam - Constitutional Vitals: Temp Pulse Resp BP Pulse Ox 99.6 F 110 H 20 142/107 92 11/21/20 19:25 11/21/20 20:45 11/21/20 22:09 11/21/20 19:25 11/21/20 20:07 General appearance: Present: no acute distress, well-nourished - EENT Eyes: Present: PERRL ENT: hearing intact, clear oral mucosa - Neck Neck: Present: supple, normal ROM - Respiratory Respiratory effort: normal Respiratory: bilateral: CTA - Cardiovascular Heart rate: 78 Rhythm: regular Heart Sounds: Present: S1 & S2. Absent: rub, click - Extremities Extremities: no ischemia, pulses symmetrical, No edema, abnormal (Swelling of the legs more consistent with lymphedema) Extremity abnormal: edema, other (Swelling of the legs more consistent with lymphedema) Peripheral Pulses: within normal limits - Abdominal General gastrointestinal: Present: soft, non-tender, non-distended, normal bowel sounds Male genitourinary: Present: normal - Integumentary Integumentary: Present: clear, warm, dry - Musculoskeletal Musculoskeletal: gait normal, strength equal bilaterally - Psychiatric Psychiatric: appropriate mood/affect, intact judgment & insight - Neurologic Neurologic: CNII-XII intact, moves all extremities HEART Score - HEART Score History: Slightly suspicious Age: < 45 Troponin: Troponin T 0.065 ng/mL (0.00-0.029) H 11/21/20 10:21 Troponin: < normal limit - Critical Actions Critical Actions: 0-3 pts:0.9-1.7%risk of adverse cardiac event.Candidate for discharge Results - Labs CBC & Chem 7: 11/22/20 05:15 11/22/20 05:15 Labs: Laboratory Last Values WBC 14.6 K/mm3 (4.5-11.0) H 11/21/20 08:06 RBC 3.95 M/mm3 (3.65-5.03) 11/21/20 08:06 Hgb 12.4 gm/dl (11.8-15.2) 11/21/20 08:06 Hct 37.2 % (35.5-45.6) 11/21/20 08:06 MCV 94 fl (84-94) 11/21/20 08:06 MCH 31 pg (28-32) 11/21/20 08:06 MCHC 33 % (32-34) 11/21/20 08:06 RDW 16.9 % (13.2-15.2) H 11/21/20 08:06 Plt Count 230 K/mm3 (140-440) 11/21/20 08:06 Add Manual Diff Complete 11/21/20 08:06 Total Counted 100 11/21/20 08:06 Seg Neutrophils % Chemist Organic 11/21/20 08:06 Seg Neuts % (Manual) 96.0 % (40.0-70.0) H 11/21/20 08:06 Lymphocytes % (Manual) 3.0 % (13.4-35.0) L 11/21/20 08:06 Monocytes % (Manual) 1.0 % (0.0-7.3) 11/21/20 08:06 Nucleated RBC % 1.0 % (0.0-0.9) H 11/21/20 08:06 Seg Neutrophils # Man 14.0 K/mm3 (1.8-7.7) H 11/21/20 08:06 Band Neutrophils # 0.0 K/mm3 11/21/20 08:06 Lymphocytes # (Manual) 0.4 K/mm3 (1.2-5.4) L 11/21/20 08:06 Abs React Lymphs (Man) 0.0 K/mm3 11/21/20 08:06 Monocytes # (Manual) 0.1 K/mm3 (0.0-0.8) 11/21/20 08:06 Eosinophils # (Manual) 0.0 K/mm3 (0.0-0.4) 11/21/20 08:06 Basophils # (Manual) 0.0 K/mm3 (0.0-0.1) 11/21/20 08:06 Metamyelocytes # 0.0 K/mm3 11/21/20 08:06 Myelocytes # 0.0 K/mm3 11/21/20 08:06 Promyelocytes # 0.0 K/mm3 11/21/20 08:06 Blast Cells # 0.0 K/mm3 11/21/20 08:06 WBC Morphology Not Reportable 11/21/20 08:06 Hypersegmented Neuts Not Reportable 11/21/20 08:06 Hyposegmented Neuts Not Reportable 11/21/20 08:06 Hypogranular Neuts Not Reportable 11/21/20 08:06 Smudge Cells Not Reportable 11/21/20 08:06 Toxic Granulation Not Reportable 11/21/20 08:06 Toxic Vacuolation Not Reportable 11/21/20 08:06 Dohle Bodies Not Reportable 11/21/20 08:06 Pelger-Huet Anomaly Not Reportable 11/21/20 08:06 Nadya Rods Not Reportable 11/21/20 08:06 Platelet Estimate Consistent w auto 11/21/20 08:06 Clumped Platelets Not Reportable 11/21/20 08:06 Plt Clumps, EDTA Not Reportable 11/21/20 08:06 Large Platelets Not Reportable 11/21/20 08:06 Giant Platelets Not Reportable 11/21/20 08:06 Platelet Satelliting Not Reportable 11/21/20 08:06 Plt Morphology Comment Not Reportable 11/21/20 08:06 RBC Morphology Not Reportable 11/21/20 08:06 Dimorphic RBCs Not Reportable 11/21/20 08:06 Polychromasia Rare 11/21/20 08:06 Hypochromasia Not Reportable 11/21/20 08:06 Poikilocytosis Not Reportable 11/21/20 08:06 Anisocytosis Few 11/21/20 08:06 Microcytosis Not Reportable 11/21/20 08:06 Macrocytosis Not Reportable 11/21/20 08:06 Spherocytes Not Reportable 11/21/20 08:06 Pappenheimer Bodies Not Reportable 11/21/20 08:06 Sickle Cells Not Reportable 11/21/20 08:06 Target Cells Not Reportable 11/21/20 08:06 Tear Drop Cells Not Reportable 11/21/20 08:06 Ovalocytes Not Reportable 11/21/20 08:06 Helmet Cells Not Reportable 11/21/20 08:06 Boyd-[place] Bodies Not Reportable 11/21/20 08:06 [place] Rings Not Reportable 11/21/20 08:06 [place] Cells Not Reportable 11/21/20 08:06 Bite Cells Not Reportable 11/21/20 08:06 Crenated Cell Not Reportable 11/21/20 08:06 Elliptocytes Not Reportable 11/21/20 08:06 Acanthocytes (Spur) Not Reportable 11/21/20 08:06 Rouleaux Not Reportable 11/21/20 08:06 Hemoglobin C Crystals Not Reportable 11/21/20 08:06 Schistocytes Not Reportable 11/21/20 08:06 Malaria parasites Not Reportable 11/21/20 08:06 Louie Bodies Not Reportable 11/21/20 08:06 Hem Pathologist Commnt No 11/21/20 08:06 Sodium 141 mmol/L (137-145) 11/21/20 08:06 Potassium 2.9 mmol/L (3.6-5.0) L* 11/21/20 08:06 Chloride 102.7 mmol/L (98-107) 11/21/20 08:06 Carbon Dioxide 26 mmol/L (22-30) 11/21/20 08:06 Anion Gap 15 mmol/L 11/21/20 08:06 BUN 15 mg/dL (9-20) 11/21/20 08:06 Creatinine 1.1 mg/dL (0.8-1.3) 11/21/20 08:06 Estimated GFR > 60 ml/min 11/21/20 08:06 BUN/Creatinine Ratio 14 % 11/21/20 08:06 Glucose 110 mg/dL (75-100) H 11/21/20 08:06 Calcium 7.9 mg/dL (8.4-10.2) L 11/21/20 08:06 Total Bilirubin 0.80 mg/dL (0.1-1.2) 11/21/20 08:06 AST 14 units/L (5-40) 11/21/20 08:06 ALT 19 units/L (7-56) 11/21/20 08:06 Alkaline Phosphatase 106 units/L (35-129) 11/21/20 08:06 Troponin T 0.065 ng/mL (0.00-0.029) H 11/21/20 10:21 NT-Pro-B Natriuret Pep 93199 pg/mL (0-450) H 11/21/20 08:06 Total Protein 5.4 g/dL (6.3-8.2) L 11/21/20 08:06 Albumin 2.7 g/dL (3.9-5) L 11/21/20 08:06 Albumin/Globulin Ratio 1.0 % 11/21/20 08:06 Triglycerides 145 mg/dL (2-149) 11/21/20 10:21 Cholesterol 111 mg/dL (50-199) 11/21/20 10:21 LDL Cholesterol Direct 53 mg/dL (50-130) 11/21/20 10:21 HDL Cholesterol 27 mg/dL (40-59) L 11/21/20 10:21 Cholesterol/HDL Ratio 4.11 % 11/21/20 10:21 Short CBC 11/21/20 11/22/20 Range/Units 08:06 05:15 WBC 14.6 H 14.5 H (4.5-11.0) K/mm3 Hgb 12.4 11.6 L (11.8-15.2) gm/dl Hct 37.2 34.6 L (35.5-45.6) % Plt Count 230 188 (140-440) K/mm3 BMP 11/21/20 11/22/20 08:06 05:15 Sodium 141 144 Potassium 2.9 L* 3.0 L Chloride 102.7 103.3 Carbon Dioxide 26 28 BUN 15 16 Creatinine 1.1 1.2 Glucose 110 H 119 H Calcium 7.9 L 7.7 L Cardiac Enzymes 11/21/20 Range/Units 10:21 Troponin T 0.065 H (0.00-0.029) ng/mL Liver Function 11/21/20 11/22/20 Range/Units 08:06 05:15 Total Bilirubin 0.80 0.80 (0.1-1.2) mg/dL AST 14 10 (5-40) units/L ALT 19 16 (7-56) units/L Alkaline Phosphatase 106 98 (35-129) units/L Albumin 2.7 L 2.5 L (3.9-5) g/dL - Imaging and Cardiology EKG: report reviewed (Normal sinus rhythm no acute ST-T wave changes) Chest x-ray: report reviewed Imaging and Cardiology: Chest x-ray Cardiomegaly and increased prominence suggestive of pulmonary edema/congestive heart failure Assessment and Plan Advance Directives: Yes (Full code) VTE prophylaxis?: Chemical Plan of care discussed with patient/family: Yes - Patient Problems (1) CHF exacerbation Current Visit: Yes Status: Acute Qualifiers: Heart failure type: combined systolic and diastolic Qualified Code(s): I50.43 - 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
[2020-11-21] MEDS ORDERED: NON-FORMULARY EACH (Hydralazine Hcl [Hydralazine Hcl] 50 MG Tablet) PO SCH (23:00)
[2020-11-22] MEDS: metOLazone 5 MG TAB PO SCH ×2 (00:12→17:30)
[2020-11-22] MEDS: hydrALAZINE 25 MG TAB PO SCH ×2 (00:12→09:32)
[2020-11-22] MEDS: oxyCODONE /ACETAMINOPHEN 5-325MG TAB PO PRN ×4 (00:13→21:55)
[2020-11-22] MEDS: HEPARIN 5,000 UNIT/1 ML VIAL SUB-Q SCH ×3 (00:16→21:56)
[2020-11-22] MEDS: carvediloL 12.5 MG TAB PO SCH ×3 (00:17→21:56)
[2020-11-22] MEDS: FUROSEMIDE 40 MG/4 ML INJ IV SCH ×2 (05:21→18:28)
[2020-11-22 05:56] LABS: Hematocrit 34.6 % (35.5-45.6); Hemoglobin 11.6 gm/dl (11.8-15.2); Mean Corpuscular HGB Conc 33 % (32-34); Mean Corpuscular Volume 95 fl (84-94); Platelet Count 188 K/mm3 (140-440); Red Blood Count 3.64 M/mm3 (3.65-5.03); Red Cell Distribution Width 17.2 % (13.2-15.2)
[2020-11-22 06:15] LABS: Alanine Aminotransferase 16 units/L (7-56); Albumin 2.5 g/dL (3.9-5); BUN/Creatinine Ratio 13; Blood Urea Nitrogen 16 mg/dL (9-20); Calcium 7.7 mg/dL (8.4-10.2); Hemolysis Index 8
[2020-11-22 06:59] LABS: Anisocytosis Few; Band Neutrophils # (Manual) 0.4 K/mm3; Hypochromasia Few; Target Cells Few; Total Cells Counted 100
[2020-11-22 07:00] LABS: Ovalocytes Few; Platelet Estimate Consistent w Auto; Tear Drop Cells Rare
[2020-11-22] MEDS ORDERED: POTASSIUM CHLORIDE ER 20 MEQ TAB PO SCH ×2 (09:30→14:00)
[2020-11-22] MEDS: FOLIC ACID 1 MG TAB PO SCH (09:32)
[2020-11-22] MEDS: FAMOTIDINE 20 MG TAB PO SCH ×2 (09:32→21:56)
[2020-11-22] MEDS: ASPIRIN 81 MG TAB CHEW PO SCH (09:32)
[2020-11-22] MEDS: SPIRONOLACTONE 25 MG TAB PO SCH (09:33)
[2020-11-22] MEDS: POTASSIUM CHLORIDE 10 MEQ 10 MEQ/100 ML BAG IV SCH ×4 (10:14→15:16)
--- NOTE | 2020-11-22 11:31 | Progress Note ---
Assessment and Plan Assessment and plan: #Acute on chronic systolic CHF Continue IV diuretics Replete electrolytes PRN Cardiology consulted Echocardiogram pending #Chronic leg swelling Has tenderness to palpation of the RLE, leg feels warm too US dopplers pending Vascular consulted #Right lower extremity pain Has some redness, erythema and tenderness Started on IV antibiotics for possible cellulitis. Check procalcitonin Ultrasound lower extremity Doppler ordered Pain medications as needed #HTN Continue usual antihypertensives #DVT prophylaxis - heparin History Interval history: 11/22. Patient seen and examined at bedside this morning. Complains of right lower extremity pain. On diuretics for congestive heart failure. Hospitalist Physical - Physical exam Narrative exam: VITAL SIGNS: Reviewed. GENERAL: Awake HEAD: No signs of head trauma. EYES: Pupils are equal. Extraocular motions intact. MOUTH: Oropharynx is normal. NECK: No adenopathy, no JVD. CHEST: Chest with diminished breath sounds bilaterally. No wheezes, rales, or rhonchi. CARDIAC: normal S1 and S2, without murmurs, gallops, or rubs. ABDOMEN: Soft, non tender and non distended. No rebound or guarding, and no masses palpated. Bowel Sounds normal. MUSCULOSKELETAL: Bilateral lower extremities-bilateral lower extremity swelling with tenderness on the right lower extremity. NEUROLOGIC EXAM: Alert and oriented x3. No focal neurologic deficits SKIN: No obvious lesions - Constitutional Vitals: Temp Pulse Resp BP Pulse Ox 98.1 F 92 H 18 130/90 96 11/22/20 08:00 11/22/20 10:00 11/22/20 08:00 11/22/20 09:33 11/22/20 08:00 HEART Score - HEART Score Age: < 45 Troponin: Troponin T 0.065 ng/mL (0.00-0.029) H 11/21/20 10:21 Troponin: < normal limit - Critical Actions Critical Actions: 0-3 pts:0.9-1.7%risk of adverse cardiac event.Candidate for discharge Results - Labs CBC & Chem 7: 11/22/20 05:15 11/22/20 05:15 Labs: Laboratory Last Values WBC 14.5 K/mm3 (4.5-11.0) H 11/22/20 05:15 RBC 3.64 M/mm3 (3.65-5.03) L 11/22/20 05:15 Hgb 11.6 gm/dl (11.8-15.2) L 11/22/20 05:15 Hct 34.6 % (35.5-45.6) L 11/22/20 05:15 MCV 95 fl (84-94) H 11/22/20 05:15 MCH 32 pg (28-32) 11/22/20 05:15 MCHC 33 % (32-34) 11/22/20 05:15 RDW 17.2 % (13.2-15.2) H 11/22/20 05:15 Plt Count 188 K/mm3 (140-440) 11/22/20 05:15 Add Manual Diff Complete 11/22/20 05:15 Total Counted 100 11/22/20 05:15 Seg Neutrophils % Fuel Retrofitting Technician 11/22/20 05:15 Seg Neuts % (Manual) 92.0 % (40.0-70.0) H 11/22/20 05:15 Band Neutrophils % 3.0 % 11/22/20 05:15 Lymphocytes % (Manual) 1.0 % (13.4-35.0) L 11/22/20 05:15 Monocytes % (Manual) 4.0 % (0.0-7.3) 11/22/20 05:15 Nucleated RBC % Not Reportable 11/22/20 05:15 Seg Neutrophils # Man 13.3 K/mm3 (1.8-7.7) H 11/22/20 05:15 Band Neutrophils # 0.4 K/mm3 11/22/20 05:15 Lymphocytes # (Manual) 0.1 K/mm3 (1.2-5.4) L 11/22/20 05:15 Abs React Lymphs (Man) 0.0 K/mm3 11/22/20 05:15 Monocytes # (Manual) 0.6 K/mm3 (0.0-0.8) 11/22/20 05:15 Eosinophils # (Manual) 0.0 K/mm3 (0.0-0.4) 11/22/20 05:15 Basophils # (Manual) 0.0 K/mm3 (0.0-0.1) 11/22/20 05:15 Metamyelocytes # 0.0 K/mm3 11/22/20 05:15 Myelocytes # 0.0 K/mm3 11/22/20 05:15 Promyelocytes # 0.0 K/mm3 11/22/20 05:15 Blast Cells # 0.0 K/mm3 11/22/20 05:15 WBC Morphology Not Reportable 11/22/20 05:15 Hypersegmented Neuts Not Reportable 11/22/20 05:15 Hyposegmented Neuts Not Reportable 11/22/20 05:15 Hypogranular Neuts Not Reportable 11/22/20 05:15 Smudge Cells Not Reportable 11/22/20 05:15 Toxic Granulation Not Reportable 11/22/20 05:15 Toxic Vacuolation Not Reportable 11/22/20 05:15 Dohle Bodies Not Reportable 11/22/20 05:15 Pelger-Huet Anomaly Not Reportable 11/22/20 05:15 Nadya Rods Not Reportable 11/22/20 05:15 Platelet Estimate Consistent w auto 11/22/20 05:15 Clumped Platelets Not Reportable 11/22/20 05:15 Plt Clumps, EDTA Not Reportable 11/22/20 05:15 Large Platelets Not Reportable 11/22/20 05:15 Giant Platelets Not Reportable 11/22/20 05:15 Platelet Satelliting Not Reportable 11/22/20 05:15 Plt Morphology Comment Not Reportable 11/22/20 05:15 RBC Morphology Not Reportable 11/22/20 05:15 Dimorphic RBCs Not Reportable 11/22/20 05:15 Polychromasia Not Reportable 11/22/20 05:15 Hypochromasia Few 11/22/20 05:15 Poikilocytosis Not Reportable 11/22/20 05:15 Anisocytosis Few 11/22/20 05:15 Microcytosis Not Reportable 11/22/20 05:15 Macrocytosis Not Reportable 11/22/20 05:15 Spherocytes Not Reportable 11/22/20 05:15 Pappenheimer Bodies Not Reportable 11/22/20 05:15 Sickle Cells Not Reportable 11/22/20 05:15 Target Cells Few 11/22/20 05:15 Tear Drop Cells Rare 11/22/20 05:15 Ovalocytes Few 11/22/20 05:15 Helmet Cells Not Reportable 11/22/20 05:15 Boyd-[place] Bodies Not Reportable 11/22/20 05:15 [place] Rings Not Reportable 11/22/20 05:15 [place] Cells Not Reportable 11/22/20 05:15 Bite Cells Not Reportable 11/22/20 05:15 Crenated Cell Not Reportable 11/22/20 05:15 Elliptocytes Not Reportable 11/22/20 05:15 Acanthocytes (Spur) Not Reportable 11/22/20 05:15 Rouleaux Not Reportable 11/22/20 05:15 Hemoglobin C Crystals Not Reportable 11/22/20 05:15 Schistocytes Not Reportable 11/22/20 05:15 Malaria parasites Not Reportable 11/22/20 05:15 Louie Bodies Not Reportable 11/22/20 05:15 Hem Pathologist Commnt No 11/22/20 05:15 Sodium 144 mmol/L (137-145) 11/22/20 05:15 Potassium 3.0 mmol/L (3.6-5.0) L 11/22/20 05:15 Chloride 103.3 mmol/L (98-107) 11/22/20 05:15 Carbon Dioxide 28 mmol/L (22-30) 11/22/20 05:15 Anion Gap 16 mmol/L 11/22/20 05:15 BUN 16 mg/dL (9-20) 11/22/20 05:15 Creatinine 1.2 mg/dL (0.8-1.3) 11/22/20 05:15 Estimated GFR > 60 ml/min 11/22/20 05:15 BUN/Creatinine Ratio 13 % 11/22/20 05:15 Glucose 119 mg/dL (75-100) H 11/22/20 05:15 Hemoglobin A1c 6.8 % (4-6) H 11/22/20 05:15 Calcium 7.7 mg/dL (8.4-10.2) L 11/22/20 05:15 Total Bilirubin 0.80 mg/dL (0.1-1.2) 11/22/20 05:15 AST 10 units/L (5-40) 11/22/20 05:15 ALT 16 units/L (7-56) 11/22/20 05:15 Alkaline Phosphatase 98 units/L (35-129) 11/22/20 05:15 Troponin T 0.065 ng/mL (0.00-0.029) H 11/21/20 10:21 NT-Pro-B Natriuret Pep 74480 pg/mL (0-450) H 11/21/20 08:06 Total Protein 5.3 g/dL (6.3-8.2) L 11/22/20 05:15 Albumin 2.5 g/dL (3.9-5) L 11/22/20 05:15 Albumin/Globulin Ratio 0.9 % 11/22/20 05:15 Triglycerides 145 mg/dL (2-149) 11/21/20 10:21 Cholesterol 111 mg/dL (50-199) 11/21/20 10:21 LDL Cholesterol Direct 53 mg/dL (50-130) 11/21/20 10:21 HDL Cholesterol 27 mg/dL (40-59) L 11/21/20 10:21 Cholesterol/HDL Ratio 4.11 % 11/21/20 10:21 Active Medications - Current Medications Current Medications: Generic Name Dose Route Start Last Admin Trade Name Freq PRN Reason Stop Dose Admin Acetaminophen 650 mg 11/21/20 22:55 Acetaminophen 325 Mg Tab PO Q4H PRN Pain MILD(1-3)/Fever >100.5/YU Aspirin 81 mg 11/22/20 10:00 11/22/20 09:32 Aspirin 81 Mg Tab Chew PO 81 mg QDAY AMRITA Administration Carvedilol 12.5 mg 11/21/20 23:00 11/22/20 09:33 Carvedilol 12.5 Mg Tab PO 12.5 mg BID AMRITA Administration Famotidine 20 mg 11/22/20 10:00 11/22/20 09:32 Famotidine 20 Mg Tab PO 20 mg BID AMRITA Administration Folic Acid 1 mg 11/22/20 10:00 11/22/20 09:32 Folic Acid 1 Mg Tab PO 1 mg QDAY AMRITA Administration Furosemide 40 mg 11/22/20 06:00 11/22/20 05:21 Furosemide 40 Mg/4 Ml Inj IV 40 mg 0600,1800 AMRITA Administration Heparin Sodium (Porcine) 5,000 unit 11/21/20 23:00 11/22/20 09:31 Heparin 5,000 Unit/1 Ml Vial SUB-Q 5,000 unit Q12HR AMRITA Administration Hydralazine HCl 50 mg 11/21/20 23:00 11/22/20 09:32 Hydralazine 25 Mg Tab PO 50 mg BID AMRITA Administration Hydromorphone HCl 0.5 mg 11/21/20 14:00 11/21/20 22:09 Hydromorphone 1 Mg/1 Ml Inj IV 0.5 mg Q3H PRN Administration Pain , Severe (7-10) Potassium Chloride 10 meq in 100 mls @ 100 mls/hr 11/22/20 10:00 11/22/20 10:14 Kcl 10meq/100ml IV 11/22/20 13:59 100 mls/hr Q1H AMRITA Administration Methocarbamol 750 mg 11/21/20 22:54 Methocarbamol 750 Mg Tab PO Q8HR PRN muscle spasm Metoclopramide HCl 10 mg 11/21/20 22:55 Metoclopramide 10 Mg/2 Ml Inj IV Q6H PRN Nausea And Vomiting Metolazone 5 mg 11/22/20 17:30 Metolazone 5 Mg Tab PO Q12H AMRITA Ondansetron HCl 4 mg 11/21/20 22:55 Ondansetron 4 Mg/2 Ml Inj IV Q3H PRN Nausea And Vomiting Oxycodone/Acetaminophen 1 tab 11/21/20 22:55 11/22/20 05:24 Oxycodone /Acetaminophen 5-325mg Tab PO 1 tab Q6H PRN Administration Pain, Moderate (4-6) Potassium Chloride 40 meq 11/22/20 09:30 11/22/20 09:31 Potassium Chloride Er 20 Meq Tab PO 11/22/20 12:30 40 meq ONCE AMRITA Administration Sodium Chloride 10 ml 11/22/20 10:00 11/22/20 09:33 Sodium Chloride 0.9% 10 Ml Flush Syringe IV 10 ml BID AMRITA Administration Sodium Chloride 10 ml 11/21/20 22:55 Sodium Chloride 0.9% 10 Ml Flush Syringe IV PRN PRN LINE FLUSH Spironolactone 25 mg 11/22/20 10:00 11/22/20 09:33 Spironolactone 25 Mg Tab PO 25 mg QDAY AMRITA Administration Nutrition/Malnutrition Assess - Dietary Evaluation Nutrition/Malnutrition Findings: Nutrition Notes Start: 11/21/20 14:27 Freq: Status: Active Protocol: Document 11/21/20 14:28 CW (Rec: 11/21/20 14:31 CW [id number]) Nutrition Notes Need for Assessment generated from: seismograph operator helper,MST Initial or Follow up Brief Note Current Diagnosis Heart Failure Current Diet Cardiac Diet Height 5 ft 8 in Weight 113 kg Elmer Body Weight (kg) 70.00 BMI 37.8 Weight change and time frame 06/21/2020: 114.1 kg Stable weight x 6 months Weight Status Obese Subjective/Other Information RN screen for MST d/t unsure weight loss. Pt weight is relatively stable based on last admission weight x6 months ago. Per chart, PO intake is excelent. Skin is intact. Nutrition Intervention Revisit per MD consult or patient Sign Off request: Additional Comments S/O for stable weight and good intact
--- NOTE | 2020-11-22 13:47 | Vascular Lab Report ---
DUPLEX DOPPLER LOWER EXTREMITY VEINS, BILATERAL INDICATION / CLINICAL INFORMATION: Bilateral leg swelling. TECHNIQUE: Duplex doppler imaging was performed through the veins of both lower extremities using venous jorge fidencio and other maneuvers. COMPARISON: None available. FINDINGS: RIGHT COMMON FEMORAL VEIN: Negative. RIGHT FEMORAL VEIN: Negative. RIGHT POPLITEAL VEIN: Negative. RIGHT CALF VEINS: Negative. LEFT COMMON FEMORAL VEIN: Negative. LEFT FEMORAL VEIN: Negative. LEFT POPLITEAL VEIN: Negative. LEFT CALF VEINS: Negative. ADDITIONAL FINDINGS: Small right popliteal cyst IMPRESSION: 1. No sonographic evidence for DVT in either lower extremity. 2. Small right popliteal cyst Signer Name: Jaime Martinez MD Signed: 11/22/2020 1:36 PM Workstation Name: [id number]
--- NOTE | 2020-11-22 13:50 | Vascular Lab Report ---
VL arterial duplex LE BILAT TECHNIQUE: Arterial duplex examination of both lower extremities performed using B-mode, color flow a nd spectral Doppler assessment. COMPARISON: None. RIGHT LOWER EXTREMITY: Diffuse triphasic waveforms. Peak Systolic Velocity (cm/sec): Common Femoral: 77 Proximal Superficial Femoral: 85 Mid Superficial Femoral: 89 Distal Superficial Femoral: 68 Popliteal: 64 Posterior Tibial: 78 Dorsalis Pedis: 70 LEFT LOWER EXTREMITY: Diffuse triphasic waveforms. Peak Systolic Velocity (cm/sec): Common Femoral: 71 Proximal Superficial Femoral: 72 Mid Superficial Femoral: 93 Distal Superficial Femoral: 59 Popliteal: 63 Posterior Tibial: 82 Dorsalis Pedis: 80 IMPRESSION: No sonographic evidence of significant stenosis within the arterial system of the lower extremities. Doppler Waveform: - Triphasic is normal. - Biphasic is abnormal if clear transition from triphasic signal along vascular tree. - Monophasic is abnormal. Signer Name: Steve Rivera MD Signed: 11/22/2020 1:46 PM Workstation Name: [id number]
[2020-11-22] MEDS ORDERED: MORPHINE 2 MG/1 ML INJ IV PRN (14:00)
[2020-11-22 14:45] LABS: BUN/Creatinine Ratio 15; Blood Urea Nitrogen 19 mg/dL (9-20); Calcium 7.9 mg/dL (8.4-10.2); Hemolysis Index 11
--- NOTE | 2020-11-22 15:02 | Consultation ---
History of Present Illness - Reason for Consult Consult date: 11/22/20 Lymphedema Requesting physician: JHOAN PINO - History of Present Illness 40-year-old male with past medical history of congestive heart failure with EF of 30 to 35% who presents with bilateral lower extremity pain and swelling of both the legs. Patient has been compliant with Lasix but the swelling is not going down. Patient also has some shortness of breath since yesterday. Orthopnea present. No chest pain or pressure. Swelling of the legs has been going for a long time. Patient is being treated for hypertension and congestive heart failure and COPD. No exacerbating or relieving factors. Patient on Lasix. Patient denies history of fever or cough. Patient gives his lower extremity pain a score of 10/10 Vascular consulted for further evaluation. Patient had arterial study which demonstrated no evidence of hemodynamically significant arterial disease. Patient had venous study which demonstrated no DVT. Patient reports that he has baseline swelling of his lower extremities which acutely worsened in the right lower extremity for the last week. The right leg is erythematous, and warmer than the left leg as well as more swollen. There are a few punctate healing ulcerations on the right anterior lower leg. Palpable dorsalis pedis pulses bilaterally. - Past Medical History --Hypertension: Yes --Congestive Heart Failure: Yes --GERD: Yes --Arthritis: Yes --COPD: Yes - Surgical History --Hernia repair - Family History Family history: not significant - Social History Smoking Status: Current Every Day Smoker (Black and milds) Substance Use Type: None (Denies illicit drug use) Medications and Allergies Allergies Allergy/AdvReac Type Severity Reaction Status Date / Time No Known Allergies Allergy Verified 06/16/18 18:08 Home Medications Medication Instructions Recorded Confirmed Last Taken Type Aspirin [Aspirin BABY CHEW TAB] 81 mg PO QDAY 100 Days #30 tab.chew 06/24/20 11/21/20 Unknown Rx Folic Acid [Folvite] 1 mg PO QDAY #30 tablet 06/24/20 11/21/20 Unknown Rx carvediloL [Coreg] 12.5 mg PO BID 30 Days #60 tablet 06/24/20 11/21/20 Unknown Rx methOCARBAMOL [Robaxin TAB] 750 mg PO Q8H PRN #90 tablet 06/24/20 11/21/20 Unknown Rx Furosemide [Lasix TAB] 40 mg PO BID 11/21/20 11/21/20 Unknown History Hydralazine HCl 50 mg PO BID 11/21/20 11/21/20 Unknown History Spironolactone [Aldactone] 25 mg PO QDAY 11/21/20 11/21/20 Unknown History methOCARBAMOL [Robaxin TAB] 1 tab PO Q8HR PRN 11/21/20 11/21/20 Unknown History Active Meds: Active Medications Acetaminophen (Acetaminophen 325 Mg Tab) 650 mg PO Q4H PRN PRN Reason: Pain MILD(1-3)/Fever >100.5/[facility] Aspirin (Aspirin 81 Mg Tab Chew) 81 mg PO QDAY [facility] Last Admin: 11/22/20 09:32 Dose: 81 mg Documented by: Carvedilol (Carvedilol 12.5 Mg Tab) 12.5 mg PO BID [facility] Last Admin: 11/22/20 09:33 Dose: 12.5 mg Documented by: Famotidine (Famotidine 20 Mg Tab) 20 mg PO BID [facility] Last Admin: 11/22/20 09:32 Dose: 20 mg Documented by: Folic Acid (Folic Acid 1 Mg Tab) 1 mg PO QDAY [facility] Last Admin: 11/22/20 09:32 Dose: 1 mg Documented by: Furosemide (Furosemide 40 Mg/4 Ml Inj) 40 mg IV 0600,1800 [facility] Last Admin: 11/22/20 05:21 Dose: 40 mg Documented by: Heparin Sodium (Porcine) (Heparin 5,000 Unit/1 Ml Vial) 5,000 unit SUB-Q Q12HR [facility] Last Admin: 11/22/20 09:31 Dose: 5,000 unit Documented by: Hydralazine HCl (Hydralazine 25 Mg Tab) 50 mg PO BID [facility] Last Admin: 11/22/20 09:32 Dose: 50 mg Documented by: Hydromorphone HCl (Hydromorphone 1 Mg/1 Ml Inj) 0.5 mg IV Q3H PRN PRN Reason: Pain , Severe (7-10) Last Admin: 11/21/20 22:09 Dose: 0.5 mg Documented by: Ceftriaxone Sodium (Rocephin/Ns 2 Gm/100 Ml) 2 gm in 100 mls @ 200 mls/hr IV Q24H [facility]; Protocol Methocarbamol (Methocarbamol 750 Mg Tab) 750 mg PO Q8HR PRN PRN Reason: muscle spasm Metoclopramide HCl (Metoclopramide 10 Mg/2 Ml Inj) 10 mg IV Q6H PRN PRN Reason: Nausea And Vomiting Metolazone (Metolazone 5 Mg Tab) 5 mg PO Q12H [facility] Morphine Sulfate (Morphine 2 Mg/1 Ml Inj) 2 mg IV Q4H PRN PRN Reason: Pain, Moderate (4-6) Ondansetron HCl (Ondansetron 4 Mg/2 Ml Inj) 4 mg IV Q3H PRN PRN Reason: Nausea And Vomiting Oxycodone/Acetaminophen (Oxycodone /Acetaminophen 5-325mg Tab) 1 tab PO Q6H PRN PRN Reason: Pain, Moderate (4-6) Last Admin: 11/22/20 11:37 Dose: 1 tab Documented by: Potassium Chloride (Potassium Chloride Er 20 Meq Tab) 40 meq PO ONCE [facility] Stop: 11/22/20 17:00 Sodium Chloride (Sodium Chloride 0.9% 10 Ml Flush Syringe) 10 ml IV BID [facility] Last Admin: 11/22/20 09:33 Dose: 10 ml Documented by: Sodium Chloride (Sodium Chloride 0.9% 10 Ml Flush Syringe) 10 ml IV PRN PRN PRN Reason: LINE FLUSH Spironolactone (Spironolactone 25 Mg Tab) 25 mg PO QDAY [facility] Last Admin: 11/22/20 09:33 Dose: 25 mg Documented by: Review of Systems All systems: negative (see HPI) Exam - Constitutional Vitals: Temp Pulse Resp BP Pulse Ox 98.1 F 92 H 15 130/90 96 11/22/20 08:00 11/22/20 10:00 11/22/20 12:37 11/22/20 09:33 11/22/20 08:00 General appearance: Present: no acute distress - EENT Eyes: Present: EOM intact ENT: hearing intact - Respiratory Respiratory effort: other (Mild discomfort, speaks slowly) - Extremities Extremities: pulses intact (Dorsalis pedis pulses bilaterally), normal tem perature, normal color Extremity abnormal: edema (2+ edema left lower extremity, 4+ edema right lower extremity, right lower extremity with healed ulcerations and erythema with warmth and pain) - Abdominal General gastrointestinal: Present: soft, non-tender - Psychiatric Psychiatric: appropriate mood/affect, cooperative Results - Labs CBC & Chem 7: 03/29/21 05:15 11/22/20 13:56 Labs: Abnormal lab results 11/22/20 11/22/20 11/22/20 Range/Units 05:15 05:15 05:15 WBC 14.5 H (4.5-11.0) K/mm3 RBC 3.64 L (3.65-5.03) M/mm3 Hgb 11.6 L (11.8-15.2) gm/dl Hct 34.6 L (35.5-45.6) % MCV 95 H (84-94) fl RDW 17.2 H (13.2-15.2) % Seg Neuts % (Manual) 92.0 H (40.0-70.0) % Lymphocytes % (Manual) 1.0 L (13.4-35.0) % Seg Neutrophils # Man 13.3 H (1.8-7.7) K/mm3 Lymphocytes # (Manual) 0.1 L (1.2-5.4) K/mm3 Potassium 3.0 L (3.6-5.0) mmol/L Glucose 119 H (75-100) mg/dL POC Glucose (70-105) mg/dL Hemoglobin A1c 6.8 H (4-6) % Calcium 7.7 L (8.4-10.2) mg/dL Total Protein 5.3 L (6.3-8.2) g/dL Albumin 2.5 L (3.9-5) g/dL 11/22/20 11/22/20 Range/Units 10:13 13:56 WBC (4.5-11.0) K/mm3 RBC (3.65-5.03) M/mm3 Hgb (11.8-15.2) gm/dl Hct (35.5-45.6) % MCV (84-94) fl RDW (13.2-15.2) % Seg Neuts % (Manual) (40.0-70.0) % Lymphocytes % (Manual) (13.4-35.0) % Seg Neutrophils # Man (1.8-7.7) K/mm3 Lymphocytes # (Manual) (1.2-5.4) K/mm3 Potassium (3.6-5.0) mmol/L Glucose 143 H (75-100) mg/dL POC Glucose 196 H (70-105) mg/dL Hemoglobin A1c (4-6) % Calcium 7.9 L (8.4-10.2) mg/dL Total Protein (6.3-8.2) g/dL Albumin (3.9-5) g/dL - Imaging and Cardiology Venous US: report reviewed, image reviewed Assessment and Plan 40-year-old male with congestive heart failure and bilateral lower extremity swelling, right side worse than left. Arterial study demonstrates no arterial disease. Palpable dorsalis pedis pulses. No DVT. Patient has leukocytosis, right side swelling more than left, erythema, pain, and some focal ulcerations of the right anterior lower leg which are healing. These findings are compatible with right lower extremity cellulitis. Recommend continuation of IV antibiotics to treat right lower extremity cellulitis. Patient has underlying significant bilateral lower extremity edema. Differential for swelling in this patient includes congestive heart failure, medication induced (hydralazine), and low albumin. There may also be some underlying component of lymphedema. Defer to cardiology for CHF, and hydralazine management. Noted patient has low albumin which may need further workup. LIONEL sanchez for now. Regarding the element of swelling that is caused by lymphedema, this portion would benefit from lymphedema pump. However, patient would need to be seen as an outpatient for lymphedema pump therapy. Card provided. Followup as outpatient.
--- NOTE | 2020-11-22 15:17 | Consultation ---
History of Present Illness Consult date: 11/22/20 Requesting physician: MADAY RANGEL History of present illness: Pt is a 39 y.o. male with a past medical hx of COPD, NICMP (EF 35-40% on echo 09/2019), chronic HFrEF, HTN, GERD, and tobacco abuse. He is followed in our office by Dr. Lopez. Pt presents with SOB, leg swelling "for a long time". He is a rather poor historian. He denies chest pain, palpitations, dizziness, cough, or any additional cardiac complaints. No fever/chills. Echo 09/2019 - EF 35-40%; grade III diastolic dysfxn; mild-mod MR. Stress test 05/2019 - neg for ischemia; EF 27%. Past History Past Medical History: other (See HPI) Medications and Allergies Allergies Allergy/AdvReac Type Severity Reaction Status Date / Time No Known Allergies Allergy Verified 06/16/18 18:08 Home Medications Medication Instructions Recorded Confirmed Last Taken Type Aspirin [Aspirin BABY CHEW TAB] 81 mg PO QDAY 100 Days #30 tab.chew 06/24/20 11/21/20 Unknown Rx Folic Acid [Folvite] 1 mg PO QDAY #30 tablet 06/24/20 11/21/20 Unknown Rx carvediloL [Coreg] 12.5 mg PO BID 30 Days #60 tablet 06/24/20 11/21/20 Unknown Rx methOCARBAMOL [Robaxin TAB] 750 mg PO Q8H PRN #90 tablet 06/24/20 11/21/20 Unknown Rx Furosemide [Lasix TAB] 40 mg PO BID 11/21/20 11/21/20 Unknown History Hydralazine HCl 50 mg PO BID 11/21/20 11/21/20 Unknown History Spironolactone [Aldactone] 25 mg PO QDAY 11/21/20 11/21/20 Unknown History methOCARBAMOL [Robaxin TAB] 1 tab PO Q8HR PRN 11/21/20 11/21/20 Unknown History Active Meds: Active Medications Acetaminophen (Acetaminophen 325 Mg Tab) 650 mg PO Q4H PRN PRN Reason: Pain MILD(1-3)/Fever >100.5/[facility] Aspirin (Aspirin 81 Mg Tab Chew) 81 mg PO QDAY [facility] Last Admin: 11/22/20 09:32 Dose: 81 mg Documented by: Carvedilol (Carvedilol 12.5 Mg Tab) 12.5 mg PO BID [facility] Last Admin: 11/22/20 09:33 Dose: 12.5 mg Documented by: Famotidine (Famotidine 20 Mg Tab) 20 mg PO BID [facility] Last Admin: 11/22/20 09:32 Dose: 20 mg Documented by: Folic Acid (Folic Acid 1 Mg Tab) 1 mg PO QDAY [facility] Last Admin: 11/22/20 09:32 Dose: 1 mg Documented by: Furosemide (Furosemide 40 Mg/4 Ml Inj) 40 mg IV 0600,1800 [facility] Last Admin: 11/22/20 05:21 Dose: 40 mg Documented by: Heparin Sodium (Porcine) (Heparin 5,000 Unit/1 Ml Vial) 5,000 unit SUB-Q Q12HR [facility] Last Admin: 11/22/20 09:31 Dose: 5,000 unit Documented by: Hydralazine HCl (Hydralazine 25 Mg Tab) 50 mg PO BID [facility] Last Admin: 11/22/20 09:32 Dose: 50 mg Documented by: Hydromorphone HCl (Hydromorphone 1 Mg/1 Ml Inj) 0.5 mg IV Q3H PRN PRN Reason: Pain , Severe (7-10) Last Admin: 11/21/20 22:09 Dose: 0.5 mg Documented by: Ceftriaxone Sodium (Rocephin/Ns 2 Gm/100 Ml) 2 gm in 100 mls @ 200 mls/hr IV Q24H [facility]; Protocol Methocarbamol (Methocarbamol 750 Mg Tab) 750 mg PO Q8HR PRN PRN Reason: muscle spasm Metoclopramide HCl (Metoclopramide 10 Mg/2 Ml Inj) 10 mg IV Q6H PRN PRN Reason: Nausea And Vomiting Metolazone (Metolazone 5 Mg Tab) 5 mg PO Q12H [facility] Morphine Sulfate (Morphine 2 Mg/1 Ml Inj) 2 mg IV Q4H PRN PRN Reason: Pain, Moderate (4-6) Ondansetron HCl (Ondansetron 4 Mg/2 Ml Inj) 4 mg IV Q3H PRN PRN Reason: Nausea And Vomiting Oxycodone/Acetaminophen (Oxycodone /Acetaminophen 5-325mg Tab) 1 tab PO Q6H PRN PRN Reason: Pain, Moderate (4-6) Last Admin: 11/22/20 11:37 Dose: 1 tab Documented by: Potassium Chloride (Potassium Chloride Er 20 Meq Tab) 40 meq PO ONCE [facility] Stop: 11/22/20 17:00 Sodium Chloride (Sodium Chloride 0.9% 10 Ml Flush Syringe) 10 ml IV BID [facility] Last Admin: 11/22/20 09:33 Dose: 10 ml Documented by: Sodium Chloride (Sodium Chloride 0.9% 10 Ml Flush Syringe) 10 ml IV PRN PRN PRN Reason: LINE FLUSH Spironolactone (Spironolactone 25 Mg Tab) 25 mg PO QDAY [facility] Last Admin: 11/22/20 09:33 Dose: 25 mg Documented by: Review of Systems Constitutional: no fever, no chills, no sweats Ears, nose, mouth and throat: no ear pain, no ear discharge, no nose pain, no nasal congestion, no nasal discharge Cardiovascular: orthopnea, edema, shortness of breath, leg edema, no chest pain, no palpitations, no syncope, no lightheadedness Respiratory: no cough, no cough with sputum, no hemoptysis, no shortness of breath, no dyspnea on exertion Gastrointestinal: no abdominal pain, no nausea, no vomiting, no diarrhea, no constipation Musculoskeletal: no neck stiffness, no neck pain, no shooting arm pain, no arm numbness/tingling, no low back pain, no shooting leg pain Integumentary: no rash, no pruritis, no redness, no sores, no wounds Neurological: no head injury, no paralysis, no weakness, no parathesias, no numbness, no tingling, no seizures, no syncope Psychiatric: no anxiety Endocrine: no cold intolerance, no heat intolerance Hematologic/Lymphatic: no easy bruising, no easy bleeding Allergic/Immunologic: no urticaria Physical Examination Last Vital Signs Temp 98.1 F 11/22/20 08:00 Pulse 92 H 11/22/20 10:00 Resp 15 11/22/20 12:37 BP 130/90 11/22/20 09:33 Pulse Ox 96 11/22/20 08:00 General appearance: no acute distress HEENT: Positive: PERRL, Normocephaly, Mucus Membranes Moist Neck: Positive: neck supple, trachea midline Cardiac: Positive: Reg Rate and Rhythm, S1/S2 Lungs: Positive: Decreased Breath Sounds Neuro: Positive: Grossly Intact Abdomen: Positive: Unremarkable Skin: Negative: Rash, Wound Extremities: Present: upper extr. pulses, lower extr. pulses, +2 Edema Results 11/22/20 05:15 11/22/20 13:56 Cardiac Enzymes 11/22/20 Range/Units 05:15 AST 10 (5-40) units/L CBC 11/22/20 Range/Units 05:15 WBC 14.5 H (4.5-11.0) K/mm3 RBC 3.64 L (3.65-5.03) M/mm3 Hgb 11.6 L (11.8-15.2) gm/dl Hct 34.6 L (35.5-45.6) % Plt Count 188 (140-440) K/mm3 Comprehensive Metabolic Panel 11/22/20 11/22/20 Range/Units 05:15 13:56 Sodium 144 140 (137-145) mmol/L Potassium 3.0 L 3.6 (3.6-5.0) mmol/L Chloride 103.3 100.9 (98-107) mmol/L Carbon Dioxide 28 28 (22-30) mmol/L BUN 16 19 (9-20) mg/dL Creatinine 1.2 1.3 (0.8-1.3) mg/dL Glucose 119 H 143 H (75-100) mg/dL Calcium 7.7 L 7.9 L (8.4-10.2) mg/dL AST 10 (5-40) units/L ALT 16 (7-56) units/L Alkaline Phosphatase 98 (35-129) units/L Total Protein 5.3 L (6.3-8.2) g/dL Albumin 2.5 L (3.9-5) g/dL - Imaging and Cardiology Echo: report reviewed EKG: report reviewed, image reviewed EKG interpretations - Telemetry EKG Rhythm: Sinus Rhythm - EKG Sinus rhythms and dysrhythmias: sinus rhythm Assessment and Plan Pt is a 39 y.o. male with a past medical hx of COPD, NICMP (EF 35-40% on echo 09/2019), chronic HFrEF, HTN, GERD, and tobacco abuse. Agree with IV diuretics and PO Zaroxolyn. Continue home aldactone. Continue home BB. Initiate Lisinopril in setting of Cardiomyopathy. Echo is pending. BLE swelling noted. BLE arterial and venous studies unremarkable. Vascular consultation noted- pt with suspected lymphedema and RLE cellulitis, f/u primary and vascular recs. Continue DVT prophylaxis per primary. Will follow. This patient was seen in conjunction with Dr Mary Reece, who agrees with this assessment and plan of care. - Patient Problems (1) Acute on chronic HFrEF (heart failure with reduced ejection fraction) Current Visit: Yes Status: Acute (2) NICM (nonischemic cardiomyopathy) Current Visit: Yes Status: Chronic (3) COPD (chronic obstructive pulmonary disease) Current Visit: Yes Status: Chronic (4) Elevated troponin Current Visit: Yes Status: Acute (5) Hypokalemia Current Visit: Yes Status: Acute (6) HTN (hypertension) Current Visit: Yes Status: Chronic Qualifiers: Hypertension type: essential hypertension Qualified Code(s): I10 - Essential (primary) hypertension (7) Gastroesophageal reflux disease Current Visit: Yes Status: Chronic Qualifiers: Esophagitis presence: without esophagitis Qualified Code(s): K21.9 - Gastro-esophageal reflux disease without esophagitis (8) Obesity Current Visit: Yes Status: Chronic Qualifiers: Obesity type: due to excess calories (9) Tobacco use Current Visit: Yes Status: Chronic
[2020-11-22] MEDS: cefTRIAXone/NS 2 GM/100 ML 2 GM/100 ML BAG IV SCH (15:59)
[2020-11-22] MEDS ORDERED: metOLazone 5 MG TAB PO SCH (17:30)
[2020-11-23] MEDS: metOLazone 5 MG TAB PO SCH ×2 (05:11→17:26)
[2020-11-23] MEDS: FUROSEMIDE 40 MG/4 ML INJ IV SCH ×2 (05:26→17:26)
[2020-11-23] MEDS: oxyCODONE /ACETAMINOPHEN 5-325MG TAB PO PRN ×2 (05:26→22:20)
[2020-11-23 06:15] LABS: Hematocrit 37.8 % (35.5-45.6); Hemoglobin 12.4 gm/dl (11.8-15.2); Mean Corpuscular HGB Conc 33 % (32-34); Mean Corpuscular Volume 95 fl (84-94); Platelet Count 169 K/mm3 (140-440); Red Blood Count 3.98 M/mm3 (3.65-5.03); Red Cell Distribution Width 16.9 % (13.2-15.2)
[2020-11-23 06:56] LABS: Alanine Aminotransferase 14 units/L (7-56); Albumin 2.4 g/dL (3.9-5); BUN/Creatinine Ratio 17; Blood Urea Nitrogen 20 mg/dL (9-20); Calcium 8.3 mg/dL (8.4-10.2); Hemolysis Index 22
[2020-11-23 07:28] LABS: Total Cells Counted 100
[2020-11-23 07:29] LABS: Anisocytosis 1+; Band Neutrophils # (Manual) 0.4 K/mm3; Large Platelets Rare; Platelet Estimate Consistent w Auto
[2020-11-23] MEDS ORDERED: POTASSIUM CHLORIDE ER 20 MEQ TAB PO NR ×2 (08:30→09:00)
[2020-11-23] MEDS: ASPIRIN 81 MG TAB CHEW PO SCH (09:25)
[2020-11-23] MEDS: LISINOPRIL 20 MG TAB PO SCH (09:25)
[2020-11-23] MEDS: SPIRONOLACTONE 25 MG TAB PO SCH (09:25)
[2020-11-23] MEDS: HEPARIN 5,000 UNIT/1 ML VIAL SUB-Q SCH ×2 (09:25→22:21)
[2020-11-23] MEDS: carvediloL 12.5 MG TAB PO SCH ×2 (09:25→22:20)
[2020-11-23] MEDS: FOLIC ACID 1 MG TAB PO SCH (09:26)
[2020-11-23] MEDS: FAMOTIDINE 20 MG TAB PO SCH ×2 (09:26→22:20)
--- NOTE | 2020-11-23 12:20 | Progress Note ---
Assessment and Plan Assessment and plan: #Acute on chronic systolic CHF Continue IV diuretics Replete electrolytes PRN Cardiology following #Chronic leg swelling US dopplers reviewed Will follow up with vascular surgery in the office #Right lower extremity cellulitis On ceftriaxone Pain medications as needed #HTN Continue usual antihypertensives #DVT prophylaxis - heparin History Interval history: 11/22. Patient seen and examined at bedside this morning. Complains of right lower extremity pain. On diuretics for congestive heart failure. Started him on antibiotics for RLE cellulitis. Vascular studies bothe venous and arterial were essentially normal. Vascular surgery evaluation appreciated. 11/23. Continues to diurese well. I/O reviewed. Echocardiogram shows LVEF 20 - 25%. Cardiology following. Hospitalist Physical - Physical exam Narrative exam: VITAL SIGNS: Reviewed. GENERAL: Awake HEAD: No signs of head trauma. EYES: Pupils are equal. Extraocular motions intact. MOUTH: Oropharynx is normal. NECK: No adenopathy, no JVD. CHEST: Chest with diminished breath sounds bilaterally. No wheezes, rales, or rhonchi. CARDIAC: normal S1 and S2, without murmurs, gallops, or rubs. ABDOMEN: Soft, non tender and non distended. No rebound or guarding, and no masses palpated. Bowel Sounds normal. MUSCULOSKELETAL: Bilateral lower extremities-bilateral lower extremity swelling with tenderness on the right lower extremity. NEUROLOGIC EXAM: Alert and oriented x3. No focal neurologic deficits SKIN: No obvious lesions - Constitutional Vitals: Temp Pulse Resp BP Pulse Ox 98.6 F 92 H 18 92/66 100 11/23/20 11:25 11/23/20 11:25 11/23/20 11:25 11/23/20 11:25 11/23/20 11:25 HEART Score - HEART Score Age: < 45 Troponin: Troponin T 0.065 ng/mL (0.00-0.029) H 11/21/20 10:21 Troponin: < normal limit - Critical Actions Critical Actions: 0-3 pts:0.9-1.7%risk of adverse cardiac event.Candidate for discharge Results - Labs CBC & Chem 7: 11/24/20 05:28 11/24/20 05:28 Labs: Laboratory Last Values WBC 13.3 K/mm3 (4.5-11.0) H 11/23/20 05:53 RBC 3.98 M/mm3 (3.65-5.03) 11/23/20 05:53 Hgb 12.4 gm/dl (11.8-15.2) 11/23/20 05:53 Hct 37.8 % (35.5-45.6) 11/23/20 05:53 MCV 95 fl (84-94) H 11/23/20 05:53 MCH 31 pg (28-32) 11/23/20 05:53 MCHC 33 % (32-34) 11/23/20 05:53 RDW 16.9 % (13.2-15.2) H 11/23/20 05:53 Plt Count 169 K/mm3 (140-440) 11/23/20 05:53 Add Manual Diff Complete 11/23/20 05:53 Total Counted 100 11/23/20 05:53 Seg Neutrophils % Feather Drying Machine Operator 11/23/20 05:53 Seg Neuts % (Manual) 92.0 % (40.0-70.0) H 11/23/20 05:53 Band Neutrophils % 3.0 % 11/23/20 05:53 Lymphocytes % (Manual) 1.0 % (13.4-35.0) L 11/22/20 05:15 Monocytes % (Manual) 5.0 % (0.0-7.3) 11/23/20 05:53 Nucleated RBC % Not Reportable 11/23/20 05:53 Seg Neutrophils # Man 12.2 K/mm3 (1.8-7.7) H 11/23/20 05:53 Band Neutrophils # 0.4 K/mm3 11/23/20 05:53 Lymphocytes # (Manual) 0.0 K/mm3 (1.2-5.4) L 11/23/20 05:53 Abs React Lymphs (Man) 0.0 K/mm3 11/23/20 05:53 Monocytes # (Manual) 0.7 K/mm3 (0.0-0.8) 11/23/20 05:53 Eosinophils # (Manual) 0.0 K/mm3 (0.0-0.4) 11/23/20 05:53 Basophils # (Manual) 0.0 K/mm3 (0.0-0.1) 11/23/20 05:53 Metamyelocytes # 0.0 K/mm3 11/23/20 05:53 Myelocytes # 0.0 K/mm3 11/23/20 05:53 Promyelocytes # 0.0 K/mm3 11/23/20 05:53 Blast Cells # 0.0 K/mm3 11/23/20 05:53 WBC Morphology Not Reportable 11/23/20 05:53 Hypersegmented Neuts Not Reportable 11/23/20 05:53 Hyposegmented Neuts Not Reportable 11/23/20 05:53 Hypogranular Neuts Not Reportable 11/23/20 05:53 Smudge Cells Not Reportable 11/23/20 05:53 Toxic Granulation Not Reportable 11/23/20 05:53 Toxic Vacuolation Not Reportable 11/23/20 05:53 Dohle Bodies Not Reportable 11/23/20 05:53 Pelger-Huet Anomaly Not Reportable 11/23/20 05:53 Nadya Rods Not Reportable 11/23/20 05:53 Platelet Estimate Consistent w auto 11/23/20 05:53 Clumped Platelets Not Reportable 11/23/20 05:53 Plt Clumps, EDTA Not Reportable 11/23/20 05:53 Large Platelets Rare 11/23/20 05:53 Giant Platelets Not Reportable 11/23/20 05:53 Platelet Satelliting Not Reportable 11/23/20 05:53 Plt Morphology Comment Not Reportable 11/23/20 05:53 RBC Morphology Not Reportable 11/23/20 05:53 Dimorphic RBCs Not Reportable 11/23/20 05:53 Polychromasia Not Reportable 11/23/20 05:53 Hypochromasia Not Reportable 11/23/20 05:53 Poikilocytosis Not Reportable 11/23/20 05:53 Anisocytosis 1+ 11/23/20 05:53 Microcytosis Not Reportable 11/23/20 05:53 Macrocytosis Not Reportable 11/23/20 05:53 Spherocytes Not Reportable 11/23/20 05:53 Pappenheimer Bodies Not Reportable 11/23/20 05:53 Sickle Cells Not Reportable 11/23/20 05:53 Target Cells Not Reportable 11/23/20 05:53 Tear Drop Cells Not Reportable 11/23/20 05:53 Ovalocytes Not Reportable 11/23/20 05:53 Helmet Cells Not Reportable 11/23/20 05:53 [place] Bodies Not Reportable 11/23/20 05:53 [place] Rings Not Reportable 11/23/20 05:53 [place] Cells Not Reportable 11/23/20 05:53 Bite Cells Not Reportable 11/23/20 05:53 Crenated Cell Not Reportable 11/23/20 05:53 Elliptocytes Not Reportable 11/23/20 05:53 Acanthocytes (Spur) Not Reportable 11/23/20 05:53 Rouleaux Not Reportable 11/23/20 05:53 Hemoglobin C Crystals Not Reportable 11/23/20 05:53 Schistocytes Not Reportable 11/23/20 05:53 Malaria parasites Not Reportable 11/23/20 05:53 Louie Bodies Not Reportable 11/23/20 05:53 Hem Pathologist Commnt No 11/23/20 05:53 Sodium 140 mmol/L (137-145) 11/23/20 05:53 Potassium 3.3 mmol/L (3.6-5.0) L 11/23/20 05:53 Chloride 101.1 mmol/L (98-107) 11/23/20 05:53 Carbon Dioxide 26 mmol/L (22-30) 11/23/20 05:53 Anion Gap 16 mmol/L 11/23/20 05:53 BUN 20 mg/dL (9-20) 11/23/20 05:53 Creatinine 1.2 mg/dL (0.8-1.3) 11/23/20 05:53 Estimated GFR > 60 ml/min 11/23/20 05:53 BUN/Creatinine Ratio 17 % 11/23/20 05:53 Glucose 131 mg/dL (75-100) H 11/23/20 05:53 POC Glucose 196 mg/dL (70-105) H 11/22/20 10:13 Hemoglobin A1c 6.8 % (4-6) H 11/22/20 05:15 Calcium 8.3 mg/dL (8.4-10.2) L 11/23/20 05:53 Magnesium 1.80 mg/dL (1.7-2.3) 11/23/20 05:53 Total Bilirubin 0.60 mg/dL (0.1-1.2) 11/23/20 05:53 AST 10 units/L (5-40) 11/23/20 05:53 ALT 14 units/L (7-56) 11/23/20 05:53 Alkaline Phosphatase 93 units/L (35-129) 11/23/20 05:53 Troponin T 0.065 ng/mL (0.00-0.029) H 11/21/20 10:21 NT-Pro-B Natriuret Pep 80238 pg/mL (0-450) H 11/21/20 08:06 Total Protein 5.7 g/dL (6.3-8.2) L 11/23/20 05:53 Albumin 2.4 g/dL (3.9-5) L 11/23/20 05:53 Albumin/Globulin Ratio 0.7 % 11/23/20 05:53 Triglycerides 145 mg/dL (2-149) 11/21/20 10:21 Cholesterol 111 mg/dL (50-199) 11/21/20 10:21 LDL Cholesterol Direct 53 mg/dL (50-130) 11/21/20 10:21 HDL Cholesterol 27 mg/dL (40-59) L 11/21/20 10:21 Cholesterol/HDL Ratio 4.11 % 11/21/20 10:21 Active Medications - Current Medications Current Medications: Generic Name Dose Route Start Last Admin Trade Name Freq PRN Reason Stop Dose Admin Acetaminophen 650 mg 11/21/20 22:55 Acetaminophen 325 Mg Tab PO Q4H PRN Pain MILD(1-3)/Fever >100.5/YU Aspirin 81 mg 11/22/20 10:00 11/23/20 09:25 Aspirin 81 Mg Tab Chew PO 81 mg QDAY AMRITA Administration Carvedilol 12.5 mg 11/21/20 23:00 11/23/20 09:25 Carvedilol 12.5 Mg Tab PO 12.5 mg BID AMRITA Administration Famotidine 20 mg 11/22/20 10:00 11/23/20 09:26 Famotidine 20 Mg Tab PO 20 mg BID AMRITA Administration Folic Acid 1 mg 11/22/20 10:00 11/23/20 09:26 Folic Acid 1 Mg Tab PO 1 mg QDAY AMRITA Administration Furosemide 40 mg 11/22/20 06:00 11/23/20 05:26 Furosemide 40 Mg/4 Ml Inj IV 40 mg 0600,1800 AMRITA Administration Heparin Sodium (Porcine) 5,000 unit 11/21/20 23:00 11/23/20 09:25 Heparin 5,000 Unit/1 Ml Vial SUB-Q 5,000 unit Q12HR AMRITA Administration Hydromorphone HCl 0.5 mg 11/21/20 14:00 11/21/20 22:09 Hydromorphone 1 Mg/1 Ml Inj IV 0.5 mg Q3H PRN Administration Pain , Severe (7-10) Ceftriaxone Sodium 2 gm in 100 mls @ 200 mls/hr 11/22/20 14:00 11/22/20 15:59 Rocephin/Ns 2 Gm/100 Ml IV 200 mls/hr Q24H AMRITA Administration Protocol Lisinopril 20 mg 11/23/20 10:00 11/23/20 09:25 Lisinopril 20 Mg Tab PO 20 mg QDAY AMRITA Administration Methocarbamol 750 mg 11/21/20 22:54 Methocarbamol 750 Mg Tab PO Q8HR PRN muscle spasm Metoclopramide HCl 10 mg 11/21/20 22:55 Metoclopramide 10 Mg/2 Ml Inj IV Q6H PRN Nausea And Vomiting Metolazone 5 mg 11/22/20 17:30 11/22/20 17:30 Metolazone 5 Mg Tab PO 5 mg Q24H AMRITA Administration Morphine Sulfate 2 mg 11/22/20 14:00 11/22/20 15:53 Morphine 2 Mg/1 Ml Inj IV 2 mg Q4H PRN Administration Pain, Moderate (4-6) Ondansetron HCl 4 mg 11/21/20 22:55 Ondansetron 4 Mg/2 Ml Inj IV Q3H PRN Nausea And Vomiting Oxycodone/Acetaminophen 1 tab 11/21/20 22:55 11/23/20 05:26 Oxycodone /Acetaminophen 5-325mg Tab PO 1 tab Q6H PRN Administration Pain, Moderate (4-6) Sodium Chloride 10 ml 11/22/20 10:00 11/23/20 09:26 Sodium Chloride 0.9% 10 Ml Flush Syringe IV 10 ml BID AMRITA Administration Sodium Chloride 10 ml 11/21/20 22:55 Sodium Chloride 0.9% 10 Ml Flush Syringe IV PRN PRN LINE FLUSH Spironolactone 25 mg 11/22/20 10:00 11/23/20 09:25 Spironolactone 25 Mg Tab PO 25 mg QDAY AMRITA Administration Nutrition/Malnutrition Assess - Dietary Evaluation Nutrition/Malnutrition Findings: Nutrition Notes Start: 11/21/20 14:27 Freq: Status: Active Protocol: Document 11/21/20 14:28 CW (Rec: 11/21/20 14:31 CW [id number]) Nutrition Notes Need for Assessment generated from: access nurse,MST Initial or Follow up Brief Note Current Diagnosis Heart Failure Current Diet Cardiac Diet Height 5 ft 8 in Weight 113 kg [place] Body Weight (kg) 70.00 BMI 37.8 Weight change and time frame 06/21/2020: 114.1 kg Stable weight x 6 months Weight Status Obese Subjective/Other Information RN screen for MST d/t unsure weight loss. Pt weight is relatively stable based on last admission weight x6 months ago. Per chart, PO intake is excelent. Skin is intact. Nutrition Intervention Revisit per MD consult or patient Sign Off request: Additional Comments S/O for stable weight and good intact
[2020-11-23] MEDS: cefTRIAXone/NS 2 GM/100 ML 2 GM/100 ML BAG IV SCH (13:40)
--- NOTE | 2020-11-23 15:29 | Progress Note ---
Assessment and Plan Pt is a 39 y.o. male with a past medical hx of COPD, NICMP (EF 35-40% on echo 09/2019), chronic HFrEF, HTN, GERD, and tobacco abuse. Tele reviewed: Sinus Tach 104. No events overnight. Echo reviewed (11/21/20): EF 20-25%. LV: mod dilated, Mild concentric LVH, Severe hypokinesis, severe dyastolic dysfunction (restrictive pattern). RV mod dilated. RV mildly hypokinetic. Mild MR. Mod TR. RVSP 43. BLE swelling addressed per vascular recs. Agree with IV diuretics. Continue PO Zaroxolyn. Repeat CMP in AM. Electrolyte management per primary. Continue home aldactone. Continue BB, Lisinopril in setting of Cardiomyopathy. Continue DVT prophylaxis per primary. Will follow. This patient was seen in conjunction with Dr Mary Reece, who agrees with this assessment and plan of care. - Patient Problems (1) Acute on chronic HFrEF (heart failure with reduced ejection fraction) Current Visit: Yes Status: Acute (2) NICM (nonischemic cardiomyopathy) Current Visit: Yes Status: Chronic (3) COPD (chronic obstructive pulmonary disease) Current Visit: Yes Status: Chronic (4) Elevated troponin Current Visit: Yes Status: Acute (5) Hypokalemia Current Visit: Yes Status: Acute (6) HTN (hypertension) Current Visit: Yes Status: Chronic Qualifiers: Hypertension type: essential hypertension Qualified Code(s): I10 - Essential (primary) hypertension (7) Gastroesophageal reflux disease Current Visit: Yes Status: Chronic Qualifiers: Esophagitis presence: without esophagitis Qualified Code(s): K21.9 - Gastro-esophageal reflux disease without esophagitis (8) Obesity Current Visit: Yes Status: Chronic Qualifiers: Obesity type: due to excess calories (9) Tobacco use Current Visit: Yes Status: Chronic Subjective Date of service: 11/23/20 Principal diagnosis: HFrEF Interval history: Pt is resting comfortably in bed. Tele reviewed: Sinus Tach 104. No events overnight. Objective Last Vital Signs Temp 98.6 F 11/23/20 11:25 Pulse 92 H 11/23/20 11:25 Resp 18 11/23/20 11:25 BP 92/66 11/23/20 11:25 Pulse Ox 100 11/23/20 11:25 - Physical Examination General: No Apparent Distress HEENT: Positive: PERRL, Normocephaly, Mucus Membranes Moist Neck: Positive: neck supple, trachea midline Cardiac: Positive: Reg Rate and Rhythm, S1/S2 Lungs: Positive: clear to auscultation, Normal Breath Sounds Neuro: Positive: Grossly Intact Abdomen: Positive: Unremarkable Skin: Negative: Rash, Wound Extremities: Present: upper extr. pulses, lower extr. pulses, +2 Edema - Labs and Meds Cardiac Enzymes 11/23/20 Range/Units 05:53 AST 10 (5-40) units/L CBC 11/23/20 Range/Units 05:53 WBC 13.3 H (4.5-11.0) K/mm3 RBC 3.98 (3.65-5.03) M/mm3 Hgb 12.4 (11.8-15.2) gm/dl Hct 37.8 (35.5-45.6) % Plt Count 169 (140-440) K/mm3 Comprehensive Metabolic Panel 11/23/20 Range/Units 05:53 Sodium 140 (137-145) mmol/L Potassium 3.3 L (3.6-5.0) mmol/L Chloride 101.1 (98-107) mmol/L Carbon Dioxide 26 (22-30) mmol/L BUN 20 (9-20) mg/dL Creatinine 1.2 (0.8-1.3) mg/dL Glucose 131 H (75-100) mg/dL Calcium 8.3 L (8.4-10.2) mg/dL AST 10 (5-40) units/L ALT 14 (7-56) units/L Alkaline Phosphatase 93 (35-129) units/L Total Protein 5.7 L (6.3-8.2) g/dL Albumin 2.4 L (3.9-5) g/dL - Imaging and Cardiology EKG: report reviewed, image reviewed Echo: report reviewed - Telemetry EKG Rhythm: Sinus Tachycardia - EKG Sinus rhythms and dysrhythmias: sinus rhythm
[2020-11-24 06:00] LABS: Hemoglobin 11.7 gm/dl (11.8-15.2); Mean Corpuscular HGB Conc 34 % (32-34); Mean Corpuscular Volume 95 fl (84-94); Platelet Count 134 K/mm3 (140-440); Red Cell Distribution Width 17.1 % (13.2-15.2)
[2020-11-24 06:02] LABS: Basophils % (Auto) 0.2 % (0.0-1.8); Lymphocytes # (Auto) 0.2 K/mm3 (1.2-5.4); Lymphocytes % (Auto) 1.6 % (13.4-35.0); Monocytes % (Auto) 7.8 % (0.0-7.3)
[2020-11-24] MEDS: FUROSEMIDE 40 MG/4 ML INJ IV SCH (06:22)
[2020-11-24 06:34] LABS: Alanine Aminotransferase 14 units/L (7-56); Albumin 2.2 g/dL (3.9-5); BUN/Creatinine Ratio 19; Blood Urea Nitrogen 23 mg/dL (9-20)
[2020-11-24 06:40] LABS: Calcium 7.7 mg/dL (8.4-10.2); Hemolysis Index 5
[2020-11-24] MEDS ORDERED: POTASSIUM CHLORIDE ER 20 MEQ TAB PO SCH (08:00)
[2020-11-24] MEDS: POTASSIUM CHLORIDE 10 MEQ 10 MEQ/100 ML BAG IV SCH ×8 (08:32→21:44)
--- NOTE | 2020-11-24 08:40 | Electrocardiograph Report ---
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
--- NOTE | 2020-11-24 08:40 | Electrocardiograph Report ---
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
--- NOTE | 2020-11-24 08:45 | XRay Report ---
CHEST 1 VIEW 11/24/2020 7:31 AM INDICATION / CLINICAL INFORMATION: pulmomary edema follow up. COMPARISON: 11/21/2020 FINDINGS: SUPPORT DEVICES: None. HEART / MEDIASTINUM: Stable. LUNGS / PLEURA: Mildly improved interstitial markings when compared to 11/21/2020. No significant effu fidencio. No pneumothorax. ADDITIONAL FINDINGS: No significant additional findings. IMPRESSION: 1. Mild interval improvement. Signer Name: Lior Murguia MD Signed: 11/24/2020 8:41 AM Workstation Name: [id number]
[2020-11-24] MEDS: FAMOTIDINE 20 MG TAB PO SCH ×2 (09:08→21:46)
[2020-11-24] MEDS: FOLIC ACID 1 MG TAB PO SCH (09:08)
[2020-11-24] MEDS: LISINOPRIL 20 MG TAB PO SCH (09:09)
[2020-11-24] MEDS: SPIRONOLACTONE 25 MG TAB PO SCH (09:09)
[2020-11-24] MEDS: ASPIRIN 81 MG TAB CHEW PO SCH (09:09)
[2020-11-24] MEDS: carvediloL 12.5 MG TAB PO SCH ×2 (09:10→21:45)
[2020-11-24] MEDS: HEPARIN 5,000 UNIT/1 ML VIAL SUB-Q SCH ×2 (09:11→21:46)
--- NOTE | 2020-11-24 11:42 | Progress Note ---
Assessment and Plan Pt is a 39 y.o. male with a past medical hx of COPD, NICMP (EF 35-40% on echo 09/2019), chronic HFrEF, HTN, GERD, and tobacco abuse. Echo reviewed (11/21/20): EF 20-25%. LV: mod dilated, Mild concentric LVH, Severe hypokinesis, severe dyastolic dysfunction (restrictive pattern). RV mod dilated. RV mildly hypokinetic. Mild MR. Mod TR. RVSP 43. Telemetry reviewed: SR 97. No events overnight. BLE swelling addressed per vascular recs. Lasix held this AM in setting of hypokalemia. Potassium is being repleated. Resume diuresis as electrolytes allow. Repeat BMP in AM. Continue Aldactone. Continue BB, Lisinopril in setting of Cardiomyopathy. Continue DVT prophylaxis per primary. Consider repeat ischemic evaluation to rule out ischemic cardiomyopathy once medically stabilized. Will follow. This patient was seen in conjunction with Dr Mary Reece, who agrees with this assessment and plan of care. - Patient Problems (1) Acute on chronic HFrEF (heart failure with reduced ejection fraction) Current Visit: Yes Status: Acute (2) NICM (nonischemic cardiomyopathy) Current Visit: Yes Status: Chronic (3) COPD (chronic obstructive pulmonary disease) Current Visit: Yes Status: Chronic (4) Elevated troponin Current Visit: Yes Status: Acute (5) Hypokalemia Current Visit: Yes Status: Acute (6) HTN (hypertension) Current Visit: Yes Status: Chronic Qualifiers: Hypertension type: essential hypertension Qualified Code(s): I10 - Essential (primary) hypertension (7) Gastroesophageal reflux disease Current Visit: Yes Status: Chronic Qualifiers: Esophagitis presence: without esophagitis Qualified Code(s): K21.9 - Gastro-esophageal reflux disease without esophagitis (8) Obesity Current Visit: Yes Status: Chronic Qualifiers: Obesity type: due to excess calories (9) Tobacco use Current Visit: Yes Status: Chronic (10) Cellulitis Current Visit: Yes Status: Acute Subjective Date of service: 11/24/20 Principal diagnosis: HFrEF Interval history: Pt is resting comfortably in bed. Telemetry reviewed: SR 97. No events overnight. Objective Last Vital Signs Temp 98.2 F 11/24/20 07:58 Pulse 74 11/24/20 10:00 Resp 17 11/24/20 08:00 BP 130/99 11/24/20 09:10 Pulse Ox 98 11/24/20 08:00 - Physical Examination General: No Apparent Distress HEENT: Positive: PERRL, Normocephaly, Mucus Membranes Moist Neck: Positive: neck supple, trachea midline Cardiac: Positive: Reg Rate and Rhythm, S1/S2 Lungs: Positive: Decreased Breath Sounds Neuro: Positive: Grossly Intact Abdomen: Positive: Unremarkable Skin: Negative: Rash, Wound Extremities: Present: upper extr. pulses, lower extr. pulses, +2 Edema - Labs and Meds Cardiac Enzymes 11/24/20 Range/Units 05:28 AST 10 (5-40) units/L CBC 11/24/20 Range/Units 05:28 WBC 12.6 H (4.5-11.0) K/mm3 RBC 3.70 (3.65-5.03) M/mm3 Hgb 11.7 L (11.8-15.2) gm/dl Hct 35.0 L (35.5-45.6) % Plt Count 134 L (140-440) K/mm3 Lymph # (Auto) 0.2 L (1.2-5.4) K/mm3 [place] # (Auto) 1.0 H (0.0-0.8) K/mm3 Eos # (Auto) 0.0 (0.0-0.4) K/mm3 Baso # (Auto) 0.0 (0.0-0.1) K/mm3 Comprehensive Metabolic Panel 11/24/20 Range/Units 05:28 Sodium 140 (137-145) mmol/L Potassium 2.6 L* D (3.6-5.0) mmol/L Chloride 98.2 (98-107) mmol/L Carbon Dioxide 34 H D (22-30) mmol/L BUN 23 H (9-20) mg/dL Creatinine 1.2 (0.8-1.3) mg/dL Glucose 114 H (75-100) mg/dL Calcium 7.7 L (8.4-10.2) mg/dL AST 10 (5-40) units/L ALT 14 (7-56) units/L Alkaline Phosphatase 87 (35-129) units/L Total Protein 5.5 L (6.3-8.2) g/dL Albumin 2.2 L (3.9-5) g/dL - Imaging and Cardiology EKG: report reviewed, image reviewed Echo: report reviewed - EKG Sinus rhythms and dysrhythmias: sinus rhythm
--- NOTE | 2020-11-24 11:52 | Progress Note ---
Assessment and Plan Assessment and plan: #Acute on chronic systolic CHF Continue IV diuretics Replete electrolytes PRN Cardiology following #Chronic leg swelling US dopplers reviewed Will follow up with vascular surgery in the office #Right lower extremity cellulitis On ceftriaxone Pain medications as needed #HTN Continue usual antihypertensives #DVT prophylaxis - heparin History Interval history: 11/22. Patient seen and examined at bedside this morning. Complains of right lower extremity pain. On diuretics for congestive heart failure. Started him on antibiotics for RLE cellulitis. Vascular studies bothe venous and arterial were essentially normal. Vascular surgery evaluation appreciated. 11/23. Continues to diurese well. I/O reviewed. Echocardiogram shows LVEF 20 - 25%. Cardiology following. 11/24. Doing well. K is low - will replete. On diuretics. His right leg pain is better. Remains on ceftriaxone. Hospitalist Physical - Physical exam Narrative exam: VITAL SIGNS: Reviewed. GENERAL: Awake HEAD: No signs of head trauma. EYES: Pupils are equal. Extraocular motions intact. MOUTH: Oropharynx is normal. NECK: No adenopathy, no JVD. CHEST: Chest with diminished breath sounds bilaterally. No wheezes, rales, or rhonchi. CARDIAC: normal S1 and S2, without murmurs, gallops, or rubs. ABDOMEN: Soft, non tender and non distended. No rebound or guarding, and no masses palpated. Bowel Sounds normal. MUSCULOSKELETAL:RLE - tenderness on palpation but improved, ++edema NEUROLOGIC EXAM: Alert and oriented x3. No focal neurologic deficits SKIN: No obvious lesions - Constitutional Vitals: Temp Pulse Resp BP Pulse Ox 98.2 F 74 17 130/99 98 11/24/20 07:58 11/24/20 10:00 11/24/20 08:00 11/24/20 09:10 11/24/20 08:00 HEART Score - HEART Score Age: < 45 Troponin: Troponin T 0.065 ng/mL (0.00-0.029) H 11/21/20 10:21 Troponin: < normal limit - Critical Actions Critical Actions: 0-3 pts:0.9-1.7%risk of adverse cardiac event.Candidate for discharge Results - Labs CBC & Chem 7: 11/24/20 05:28 11/24/20 05:28 Labs: Laboratory Last Values WBC 12.6 K/mm3 (4.5-11.0) H 11/24/20 05:28 RBC 3.70 M/mm3 (3.65-5.03) 11/24/20 05:28 Hgb 11.7 gm/dl (11.8-15.2) L 11/24/20 05:28 Hct 35.0 % (35.5-45.6) L 11/24/20 05:28 MCV 95 fl (84-94) H 11/24/20 05:28 MCH 32 pg (28-32) 11/24/20 05:28 MCHC 34 % (32-34) 11/24/20 05:28 RDW 17.1 % (13.2-15.2) H 11/24/20 05:28 Plt Count 134 K/mm3 (140-440) L 11/24/20 05:28 Lymph % (Auto) 1.6 % (13.4-35.0) L 11/24/20 05:28 [place] % (Auto) 7.8 % (0.0-7.3) H 11/24/20 05:28 Eos % (Auto) 0.0 % (0.0-4.3) 11/24/20 05:28 Baso % (Auto) 0.2 % (0.0-1.8) 11/24/20 05:28 Lymph # (Auto) 0.2 K/mm3 (1.2-5.4) L 11/24/20 05:28 [place] # (Auto) 1.0 K/mm3 (0.0-0.8) H 11/24/20 05:28 Eos # (Auto) 0.0 K/mm3 (0.0-0.4) 11/24/20 05:28 Baso # (Auto) 0.0 K/mm3 (0.0-0.1) 11/24/20 05:28 Add Manual Diff Complete 11/23/20 05:53 Total Counted 100 11/23/20 05:53 Seg Neutrophils % 90.4 % (40.0-70.0) H 11/24/20 05:28 Seg Neuts % (Manual) 92.0 % (40.0-70.0) H 11/23/20 05:53 Band Neutrophils % 3.0 % 11/23/20 05:53 Lymphocytes % (Manual) 1.0 % (13.4-35.0) L 11/22/20 05:15 Monocytes % (Manual) 5.0 % (0.0-7.3) 11/23/20 05:53 Nucleated RBC % Not Reportable 11/23/20 05:53 Seg Neutrophils # 11.3 K/mm3 (1.8-7.7) H 11/24/20 05:28 Seg Neutrophils # Man 12.2 K/mm3 (1.8-7.7) H 11/23/20 05:53 Band Neutrophils # 0.4 K/mm3 11/23/20 05:53 Lymphocytes # (Manual) 0.0 K/mm3 (1.2-5.4) L 11/23/20 05:53 Abs React Lymphs (Man) 0.0 K/mm3 11/23/20 05:53 Monocytes # (Manual) 0.7 K/mm3 (0.0-0.8) 11/23/20 05:53 Eosinophils # (Manual) 0.0 K/mm3 (0.0-0.4) 11/23/20 05:53 Basophils # (Manual) 0.0 K/mm3 (0.0-0.1) 11/23/20 05:53 Metamyelocytes # 0.0 K/mm3 11/23/20 05:53 Myelocytes # 0.0 K/mm3 11/23/20 05:53 Promyelocytes # 0.0 K/mm3 11/23/20 05:53 Blast Cells # 0.0 K/mm3 11/23/20 05:53 WBC Morphology Not Reportable 11/23/20 05:53 Hypersegmented Neuts Not Reportable 11/23/20 05:53 Hyposegmented Neuts Not Reportable 11/23/20 05:53 Hypogranular Neuts Not Reportable 11/23/20 05:53 Smudge Cells Not Reportable 11/23/20 05:53 Toxic Granulation Not Reportable 11/23/20 05:53 Toxic Vacuolation Not Reportable 11/23/20 05:53 Dohle Bodies Not Reportable 11/23/20 05:53 Pelger-Huet Anomaly Not Reportable 11/23/20 05:53 Nadya Rods Not Reportable 11/23/20 05:53 Platelet Estimate Consistent w auto 11/23/20 05:53 Clumped Platelets Not Reportable 11/23/20 05:53 Plt Clumps, EDTA Not Reportable 11/23/20 05:53 Large Platelets Rare 11/23/20 05:53 Giant Platelets Not Reportable 11/23/20 05:53 Platelet Satelliting Not Reportable 11/23/20 05:53 Plt Morphology Comment Not Reportable 11/23/20 05:53 RBC Morphology Not Reportable 11/23/20 05:53 Dimorphic RBCs Not Reportable 11/23/20 05:53 Polychromasia Not Reportable 11/23/20 05:53 Hypochromasia Not Reportable 11/23/20 05:53 Poikilocytosis Not Reportable 11/23/20 05:53 Anisocytosis 1+ 11/23/20 05:53 Microcytosis Not Reportable 11/23/20 05:53 Macrocytosis Not Reportable 11/23/20 05:53 Spherocytes Not Reportable 11/23/20 05:53 Pappenheimer Bodies Not Reportable 11/23/20 05:53 Sickle Cells Not Reportable 11/23/20 05:53 Target Cells Not Reportable 11/23/20 05:53 Tear Drop Cells Not Reportable 11/23/20 05:53 Ovalocytes Not Reportable 11/23/20 05:53 Helmet Cells Not Reportable 11/23/20 05:53 [place] Bodies Not Reportable 11/23/20 05:53 [place] Rings Not Reportable 11/23/20 05:53 [place] Cells Not Reportable 11/23/20 05:53 Bite Cells Not Reportable 11/23/20 05:53 Crenated Cell Not Reportable 11/23/20 05:53 Elliptocytes Not Reportable 11/23/20 05:53 Acanthocytes (Spur) Not Reportable 11/23/20 05:53 Rouleaux Not Reportable 11/23/20 05:53 Hemoglobin C Crystals Not Reportable 11/23/20 05:53 Schistocytes Not Reportable 11/23/20 05:53 Malaria parasites Not Reportable 11/23/20 05:53 Louie Bodies Not Reportable 11/23/20 05:53 Hem Pathologist Commnt No 11/23/20 05:53 Sodium 140 mmol/L (137-145) 11/24/20 05:28 Potassium 2.6 mmol/L (3.6-5.0) L* D 11/24/20 05:28 Chloride 98.2 mmol/L (98-107) 11/24/20 05:28 Carbon Dioxide 34 mmol/L (22-30) H D 11/24/20 05:28 Anion Gap 11 mmol/L 11/24/20 05:28 BUN 23 mg/dL (9-20) H 11/24/20 05:28 Creatinine 1.2 mg/dL (0.8-1.3) 11/24/20 05:28 Estimated GFR > 60 ml/min 11/24/20 05:28 BUN/Creatinine Ratio 19 % 11/24/20 05:28 Glucose 114 mg/dL (75-100) H 11/24/20 05:28 POC Glucose 196 mg/dL (70-105) H 11/22/20 10:13 Hemoglobin A1c 6.8 % (4-6) H 11/22/20 05:15 Calcium 7.7 mg/dL (8.4-10.2) L 11/24/20 05:28 Magnesium 1.80 mg/dL (1.7-2.3) 11/23/20 05:53 Total Bilirubin 0.30 mg/dL (0.1-1.2) 11/24/20 05:28 AST 10 units/L (5-40) 11/24/20 05:28 ALT 14 units/L (7-56) 11/24/20 05:28 Alkaline Phosphatase 87 units/L (35-129) 11/24/20 05:28 Troponin T 0.065 ng/mL (0.00-0.029) H 11/21/20 10:21 NT-Pro-B Natriuret Pep 07080 pg/mL (0-450) H 11/21/20 08:06 Total Protein 5.5 g/dL (6.3-8.2) L 11/24/20 05:28 Albumin 2.2 g/dL (3.9-5) L 11/24/20 05:28 Albumin/Globulin Ratio 0.7 % 11/24/20 05:28 Triglycerides 145 mg/dL (2-149) 11/21/20 10:21 Cholesterol 111 mg/dL (50-199) 11/21/20 10:21 LDL Cholesterol Direct 53 mg/dL (50-130) 11/21/20 10:21 HDL Cholesterol 27 mg/dL (40-59) L 11/21/20 10:21 Cholesterol/HDL Ratio 4.11 % 11/21/20 10:21 Procalcitonin 3.62 ng/mL (<0.15) 11/23/20 05:53 Hyatt/IV: Voiding Method Bedside Commode Active Medications - Current Medications Current Medications: Generic Name Dose Route Start Last Admin Trade Name Freq PRN Reason Stop Dose Admin Acetaminophen 650 mg 11/21/20 22:55 Acetaminophen 325 Mg Tab PO Q4H PRN Pain MILD(1-3)/Fever >100.5/YU Aspirin 81 mg 11/22/20 10:00 11/24/20 09:09 Aspirin 81 Mg Tab Chew PO 81 mg QDAY AMRITA Administration Carvedilol 12.5 mg 11/21/20 23:00 11/24/20 09:10 Carvedilol 12.5 Mg Tab PO 12.5 mg BID AMRITA Administration Famotidine 20 mg 11/22/20 10:00 11/24/20 09:08 Famotidine 20 Mg Tab PO 20 mg BID AMRITA Administration Folic Acid 1 mg 11/22/20 10:00 11/24/20 09:08 Folic Acid 1 Mg Tab PO 1 mg QDAY AMRITA Administration Heparin Sodium (Porcine) 5,000 unit 11/21/20 23:00 11/24/20 09:11 Heparin 5,000 Unit/1 Ml Vial SUB-Q 5,000 unit Q12HR AMRITA Administration Hydromorphone HCl 0.5 mg 11/21/20 14:00 11/21/20 22:09 Hydromorphone 1 Mg/1 Ml Inj IV 0.5 mg Q3H PRN Administration Pain , Severe (7-10) Ceftriaxone Sodium 2 gm in 100 mls @ 200 mls/hr 11/22/20 14:00 11/23/20 13:40 Rocephin/Ns 2 Gm/100 Ml IV 200 mls/hr Q24H AMRITA Administration Protocol Potassium Chloride 10 meq in 100 mls @ 100 mls/hr 11/24/20 08:30 11/24/20 11:34 Kcl 10meq/100ml IV 11/24/20 12:29 100 mls/hr Q1H AMRITA Administration Potassium Chloride 10 meq in 100 mls @ 100 mls/hr 03/31/21 13:30 Kcl 10meq/100ml IV 11/24/20 17:29 Q1H AMRITA Lisinopril 20 mg 11/23/20 10:00 11/24/20 09:09 Lisinopril 20 Mg Tab PO 20 mg QDAY AMRITA Administration Methocarbamol 750 mg 11/21/20 22:54 Methocarbamol 750 Mg Tab PO Q8HR PRN muscle spasm Metoclopramide HCl 10 mg 11/21/20 22:55 Metoclopramide 10 Mg/2 Ml Inj IV Q6H PRN Nausea And Vomiting Metolazone 5 mg 11/22/20 17:30 11/23/20 17:26 Metolazone 5 Mg Tab PO 5 mg Q24H AMRITA Administration Morphine Sulfate 2 mg 11/22/20 14:00 11/22/20 15:53 Morphine 2 Mg/1 Ml Inj IV 2 mg Q4H PRN Administration Pain, Moderate (4-6) Ondansetron HCl 4 mg 11/21/20 22:55 Ondansetron 4 Mg/2 Ml Inj IV Q3H PRN Nausea And Vomiting Oxycodone/Acetaminophen 1 tab 11/21/20 22:55 11/23/20 22:20 Oxycodone /Acetaminophen 5-325mg Tab PO 1 tab Q6H PRN Administration Pain, Moderate (4-6) Sodium Chloride 10 ml 11/22/20 10:00 11/24/20 09:24 Sodium Chloride 0.9% 10 Ml Flush Syringe IV 10 ml BID AMRITA Administration Sodium Chloride 10 ml 11/21/20 22:55 Sodium Chloride 0.9% 10 Ml Flush Syringe IV PRN PRN LINE FLUSH Spironolactone 25 mg 11/22/20 10:00 11/24/20 09:09 Spironolactone 25 Mg Tab PO 25 mg QDAY AMRITA Administration Nutrition/Malnutrition Assess - Dietary Evaluation Nutrition/Malnutrition Findings: Nutrition Notes Start: 11/21/20 14:27 Freq: Status: Active Protocol: Document 11/21/20 14:28 CW (Rec: 11/21/20 14:31 CW [email or web address]) Nutrition Notes Need for Assessment generated from: manager general,MST Initial or Follow up Brief Note Current Diagnosis Heart Failure Current Diet Cardiac Diet Height 5 ft 8 in Weight 113 kg [place] Body Weight (kg) 70.00 BMI 37.8 Weight change and time frame 06/21/2020: 114.1 kg Stable weight x 6 months Weight Status Obese Subjective/Other Information RN screen for MST d/t unsure weight loss. Pt weight is relatively stable based on last admission weight x6 months ago. Per chart, PO intake is excelent. Skin is intact. Nutrition Intervention Revisit per MD consult or patient Sign Off request: Additional Comments S/O for stable weight and good intact
[2020-11-24] MEDS: cefTRIAXone/NS 2 GM/100 ML 2 GM/100 ML BAG IV SCH (14:42)
[2020-11-24] MEDS ORDERED: POTASSIUM CHLORIDE ER 20 MEQ TAB PO ONE (16:00)
[2020-11-25 06:06] LABS: Basophils % (Auto) 0.2 % (0.0-1.8); Hematocrit 34.8 % (35.5-45.6); Hemoglobin 11.3 gm/dl (11.8-15.2); Lymphocytes # (Auto) 0.2 K/mm3 (1.2-5.4); Lymphocytes % (Auto) 2.1 % (13.4-35.0); Mean Corpuscular HGB Conc 33 % (32-34); Mean Corpuscular Volume 95 fl (84-94); Monocytes % (Auto) 8.6 % (0.0-7.3); Platelet Count 158 K/mm3 (140-440); Red Blood Count 3.66 M/mm3 (3.65-5.03); Red Cell Distribution Width 17.3 % (13.2-15.2)
[2020-11-25 06:33] LABS: Alanine Aminotransferase 18 units/L (7-56); Albumin 2.3 g/dL (3.9-5); BUN/Creatinine Ratio 23; Blood Urea Nitrogen 25 mg/dL (9-20); Calcium 7.9 mg/dL (8.4-10.2); Hemolysis Index 10
[2020-11-25] MEDS ORDERED: POTASSIUM CHLORIDE ER 20 MEQ TAB PO NR (07:49)
--- NOTE | 2020-11-25 12:33 | Progress Note ---
Assessment and Plan Assessment and plan: #Acute on chronic systolic CHF Continue IV diuretics Replete electrolytes PRN Cardiology following Plan for ischemic work up as per cardiology. #Chronic leg swelling US dopplers reviewed Will follow up with vascular surgery in the office #Right lower extremity cellulitis On ceftriaxone Pain medications as needed Procalcitonin 3.6. Will repeat level today Keep RLE elevated. #HTN Continue usual antihypertensives #DVT prophylaxis - heparin History Interval history: 11/22. Patient seen and examined at bedside this morning. Complains of right lower extremity pain. On diuretics for congestive heart failure. Started him on antibiotics for RLE cellulitis. Vascular studies both venous and arterial were essentially normal. Vascular surgery evaluation appreciated. 11/23. Continues to diurese well. I/O reviewed. Echocardiogram shows LVEF 20 - 25%. Cardiology following. 11/24. Doing well. K is low - will replete. On diuretics. His right leg pain is better. Remains on ceftriaxone. 11/25. He complains his leg pain is still there. He is on antibiotics. On diuretics for heart failure Hospitalist Physical - Physical exam Narrative exam: VITAL SIGNS: Reviewed. GENERAL: Awake HEAD: No signs of head trauma. EYES: Pupils are equal. Extraocular motions intact. MOUTH: Oropharynx is normal. NECK: No adenopathy, no JVD. CHEST: Chest with diminished breath sounds bilaterally. No wheezes, rales, or rhonchi. CARDIAC: normal S1 and S2, without murmurs, gallops, or rubs. ABDOMEN: Soft, non tender and non distended. No rebound or guarding, and no masses palpated. Bowel Sounds normal. MUSCULOSKELETAL:RLE - tenderness on palpation but improved, ++edema NEUROLOGIC EXAM: Alert and oriented x3. No focal neurologic deficits SKIN: No obvious lesions - Constitutional Vitals: Temp Pulse Resp BP Pulse Ox 98.2 F 90 20 139/111 92 11/25/20 07:43 11/25/20 07:43 11/25/20 07:43 11/25/20 07:43 11/25/20 07:43 HEART Score - HEART Score Age: < 45 Troponin: Troponin T 0.065 ng/mL (0.00-0.029) H 11/21/20 10:21 Troponin: < normal limit - Critical Actions Critical Actions: 0-3 pts:0.9-1.7%risk of adverse cardiac event.Candidate for discharge Results - Labs CBC & Chem 7: 11/25/20 05:33 11/25/20 05:33 Labs: Laboratory Last Values WBC 11.8 K/mm3 (4.5-11.0) H 11/25/20 05:33 RBC 3.66 M/mm3 (3.65-5.03) 11/25/20 05:33 Hgb 11.3 gm/dl (11.8-15.2) L 11/25/20 05:33 Hct 34.8 % (35.5-45.6) L 11/25/20 05:33 MCV 95 fl (84-94) H 11/25/20 05:33 MCH 31 pg (28-32) 11/25/20 05:33 MCHC 33 % (32-34) 11/25/20 05:33 RDW 17.3 % (13.2-15.2) H 11/25/20 05:33 Plt Count 158 K/mm3 (140-440) 11/25/20 05:33 Lymph % (Auto) 2.1 % (13.4-35.0) L 11/25/20 05:33 [place] % (Auto) 8.6 % (0.0-7.3) H 11/25/20 05:33 Eos % (Auto) 0.0 % (0.0-4.3) 11/25/20 05:33 Baso % (Auto) 0.2 % (0.0-1.8) 11/25/20 05:33 Lymph # (Auto) 0.2 K/mm3 (1.2-5.4) L 11/25/20 05:33 [place] # (Auto) 1.0 K/mm3 (0.0-0.8) H 11/25/20 05:33 Eos # (Auto) 0.0 K/mm3 (0.0-0.4) 11/25/20 05:33 Baso # (Auto) 0.0 K/mm3 (0.0-0.1) 11/25/20 05:33 Add Manual Diff Complete 11/23/20 05:53 Total Counted 100 11/23/20 05:53 Seg Neutrophils % 89.1 % (40.0-70.0) H 11/25/20 05:33 Seg Neuts % (Manual) 92.0 % (40.0-70.0) H 11/23/20 05:53 Band Neutrophils % 3.0 % 11/23/20 05:53 Lymphocytes % (Manual) 1.0 % (13.4-35.0) L 11/22/20 05:15 Monocytes % (Manual) 5.0 % (0.0-7.3) 11/23/20 05:53 Nucleated RBC % Not Reportable 11/23/20 05:53 Seg Neutrophils # 10.5 K/mm3 (1.8-7.7) H 11/25/20 05:33 Seg Neutrophils # Man 12.2 K/mm3 (1.8-7.7) H 11/23/20 05:53 Band Neutrophils # 0.4 K/mm3 11/23/20 05:53 Lymphocytes # (Manual) 0.0 K/mm3 (1.2-5.4) L 11/23/20 05:53 Abs React Lymphs (Man) 0.0 K/mm3 11/23/20 05:53 Monocytes # (Manual) 0.7 K/mm3 (0.0-0.8) 11/23/20 05:53 Eosinophils # (Manual) 0.0 K/mm3 (0.0-0.4) 11/23/20 05:53 Basophils # (Manual) 0.0 K/mm3 (0.0-0.1) 11/23/20 05:53 Metamyelocytes # 0.0 K/mm3 11/23/20 05:53 Myelocytes # 0.0 K/mm3 11/23/20 05:53 Promyelocytes # 0.0 K/mm3 11/23/20 05:53 Blast Cells # 0.0 K/mm3 11/23/20 05:53 WBC Morphology Not Reportable 11/23/20 05:53 Hypersegmented Neuts Not Reportable 11/23/20 05:53 Hyposegmented Neuts Not Reportable 11/23/20 05:53 Hypogranular Neuts Not Reportable 11/23/20 05:53 Smudge Cells Not Reportable 11/23/20 05:53 Toxic Granulation Not Reportable 11/23/20 05:53 Toxic Vacuolation Not Reportable 11/23/20 05:53 Dohle Bodies Not Reportable 11/23/20 05:53 Pelger-Huet Anomaly Not Reportable 11/23/20 05:53 Nadya Rods Not Reportable 11/23/20 05:53 Platelet Estimate Consistent w auto 11/23/20 05:53 Clumped Platelets Not Reportable 11/23/20 05:53 Plt Clumps, EDTA Not Reportable 11/23/20 05:53 Large Platelets Rare 11/23/20 05:53 Giant Platelets Not Reportable 11/23/20 05:53 Platelet Satelliting Not Reportable 11/23/20 05:53 Plt Morphology Comment Not Reportable 11/23/20 05:53 RBC Morphology Not Reportable 11/23/20 05:53 Dimorphic RBCs Not Reportable 11/23/20 05:53 Polychromasia Not Reportable 11/23/20 05:53 Hypochromasia Not Reportable 11/23/20 05:53 Poikilocytosis Not Reportable 11/23/20 05:53 Anisocytosis 1+ 11/23/20 05:53 Microcytosis Not Reportable 11/23/20 05:53 Macrocytosis Not Reportable 11/23/20 05:53 Spherocytes Not Reportable 11/23/20 05:53 Pappenheimer Bodies Not Reportable 11/23/20 05:53 Sickle Cells Not Reportable 11/23/20 05:53 Target Cells Not Reportable 11/23/20 05:53 Tear Drop Cells Not Reportable 11/23/20 05:53 Ovalocytes Not Reportable 11/23/20 05:53 Helmet Cells Not Reportable 11/23/20 05:53 [place] Bodies Not Reportable 11/23/20 05:53 [place] Rings Not Reportable 11/23/20 05:53 Yan Cells Not Reportable 11/23/20 05:53 Bite Cells Not Reportable 11/23/20 05:53 Crenated Cell Not Reportable 11/23/20 05:53 Elliptocytes Not Reportable 11/23/20 05:53 Acanthocytes (Spur) Not Reportable 11/23/20 05:53 Rouleaux Not Reportable 11/23/20 05:53 Hemoglobin C Crystals Not Reportable 11/23/20 05:53 Schistocytes Not Reportable 11/23/20 05:53 Malaria parasites Not Reportable 11/23/20 05:53 Louie Bodies Not Reportable 11/23/20 05:53 Hem Pathologist Commnt No 11/23/20 05:53 Sodium 141 mmol/L (137-145) 11/25/20 05:33 Potassium 3.3 mmol/L (3.6-5.0) L D 11/25/20 05:33 Chloride 99.6 mmol/L (98-107) 11/25/20 05:33 Carbon Dioxide 34 mmol/L (22-30) H 11/25/20 05:33 Anion Gap 11 mmol/L 11/25/20 05:33 BUN 25 mg/dL (9-20) H 11/25/20 05:33 Creatinine 1.1 mg/dL (0.8-1.3) 11/25/20 05:33 Estimated GFR > 60 ml/min 11/25/20 05:33 BUN/Creatinine Ratio 23 % 11/25/20 05:33 Glucose 120 mg/dL (75-100) H 11/25/20 05:33 POC Glucose 196 mg/dL (70-105) H 11/22/20 10:13 Hemoglobin A1c 6.8 % (4-6) H 11/22/20 05:15 Calcium 7.9 mg/dL (8.4-10.2) L 11/25/20 05:33 Magnesium 1.80 mg/dL (1.7-2.3) 11/25/20 05:33 Total Bilirubin 0.40 mg/dL (0.1-1.2) 11/25/20 05:33 AST 17 units/L (5-40) 11/25/20 05:33 ALT 18 units/L (7-56) 11/25/20 05:33 Alkaline Phosphatase 107 units/L (35-129) 11/25/20 05:33 Troponin T 0.065 ng/mL (0.00-0.029) H 11/21/20 10:21 NT-Pro-B Natriuret Pep 28713 pg/mL (0-450) H 11/21/20 08:06 Total Protein 5.6 g/dL (6.3-8.2) L 11/25/20 05:33 Albumin 2.3 g/dL (3.9-5) L 11/25/20 05:33 Albumin/Globulin Ratio 0.7 % 11/25/20 05:33 Triglycerides 145 mg/dL (2-149) 11/21/20 10:21 Cholesterol 111 mg/dL (50-199) 11/21/20 10:21 LDL Cholesterol Direct 53 mg/dL (50-130) 11/21/20 10:21 HDL Cholesterol 27 mg/dL (40-59) L 11/21/20 10:21 Cholesterol/HDL Ratio 4.11 % 11/21/20 10:21 Procalcitonin 3.62 ng/mL (<0.15) 11/23/20 05:53 Hyatt/IV: Voiding Method Urinal Active Medications - Current Medications Current Medications: Generic Name Dose Route Start Last Admin Trade Name Freq PRN Reason Stop Dose Admin Acetaminophen 650 mg 11/21/20 22:55 Acetaminophen 325 Mg Tab PO Q4H PRN Pain MILD(1-3)/Fever >100.5/YU Aspirin 81 mg 11/22/20 10:00 11/24/20 09:09 Aspirin 81 Mg Tab Chew PO 81 mg QDAY AMRITA Administration Carvedilol 12.5 mg 11/21/20 23:00 11/24/20 21:45 Carvedilol 12.5 Mg Tab PO 12.5 mg BID AMRITA Administration Famotidine 20 mg 11/22/20 10:00 11/24/20 21:46 Famotidine 20 Mg Tab PO 20 mg BID AMRITA Administration Folic Acid 1 mg 11/22/20 10:00 11/24/20 09:08 Folic Acid 1 Mg Tab PO 1 mg QDAY AMRITA Administration Furosemide 40 mg 11/25/20 10:00 Furosemide 40 Mg/4 Ml Inj IV QDAY AMRITA Heparin Sodium (Porcine) 5,000 unit 11/21/20 23:00 11/24/20 21:46 Heparin 5,000 Unit/1 Ml Vial SUB-Q 5,000 unit Q12HR AMRITA Administration Hydromorphone HCl 0.5 mg 11/21/20 14:00 11/21/20 22:09 Hydromorphone 1 Mg/1 Ml Inj IV 0.5 mg Q3H PRN Administration Pain , Severe (7-10) Ceftriaxone Sodium 2 gm in 100 mls @ 200 mls/hr 11/22/20 14:00 11/24/20 14:42 Rocephin/Ns 2 Gm/100 Ml IV 200 mls/hr Q24H AMRITA Administration Protocol Lisinopril 20 mg 11/23/20 10:00 11/24/20 09:09 Lisinopril 20 Mg Tab PO 20 mg QDAY AMRITA Administration Magnesium Oxide 400 mg 11/25/20 10:00 Magnesium Oxide 400 Mg Tab PO QDAY AMRITA Methocarbamol 750 mg 11/21/20 22:54 Methocarbamol 750 Mg Tab PO Q8HR PRN muscle spasm Metoclopramide HCl 10 mg 11/21/20 22:55 Metoclopramide 10 Mg/2 Ml Inj IV Q6H PRN Nausea And Vomiting Morphine Sulfate 2 mg 11/22/20 14:00 11/22/20 15:53 Morphine 2 Mg/1 Ml Inj IV 2 mg Q4H PRN Administration Pain, Moderate (4-6) Ondansetron HCl 4 mg 11/21/20 22:55 Ondansetron 4 Mg/2 Ml Inj IV Q3H PRN Nausea And Vomiting Oxycodone/Acetaminophen 1 tab 11/21/20 22:55 11/23/20 22:20 Oxycodone /Acetaminophen 5-325mg Tab PO 1 tab Q6H PRN Administration Pain, Moderate (4-6) Sodium Chloride 10 ml 11/22/20 10:00 11/24/20 21:47 Sodium Chloride 0.9% 10 Ml Flush Syringe IV 10 ml BID AMRITA Administration Sodium Chloride 10 ml 11/21/20 22:55 Sodium Chloride 0.9% 10 Ml Flush Syringe IV PRN PRN LINE FLUSH Spironolactone 25 mg 11/22/20 10:00 11/24/20 09:09 Spironolactone 25 Mg Tab PO 25 mg QDAY AMRITA Administration Nutrition/Malnutrition Assess - Dietary Evaluation Nutrition/Malnutrition Findings: Nutrition Notes Start: 11/21/20 14:27 Freq: Status: Active Protocol: Document 11/21/20 14:28 CW (Rec: 11/21/20 14:31 CW [id number]) Nutrition Notes Need for Assessment generated from: escalator operator,MST Initial or Follow up Brief Note Current Diagnosis Heart Failure Current Diet Cardiac Diet Height 5 ft 8 in Weight 113 kg [place] Body Weight (kg) 70.00 BMI 37.8 Weight change and time frame 06/21/2020: 114.1 kg Stable weight x 6 months Weight Status Obese Subjective/Other Information RN screen for MST d/t unsure weight loss. Pt weight is relatively stable based on last admission weight x6 months ago. Per chart, PO intake is excelent. Skin is intact. Nutrition Intervention Revisit per MD consult or patient Sign Off request: Additional Comments S/O for stable weight and good intact
[2020-11-25] MEDS: FUROSEMIDE 40 MG/4 ML INJ IV SCH (12:50)
[2020-11-25] MEDS: HEPARIN 5,000 UNIT/1 ML VIAL SUB-Q SCH ×2 (12:51→22:19)
[2020-11-25] MEDS: LISINOPRIL 20 MG TAB PO SCH (12:52)
[2020-11-25] MEDS: FOLIC ACID 1 MG TAB PO SCH (12:53)
[2020-11-25] MEDS: carvediloL 12.5 MG TAB PO SCH ×2 (12:54→22:18)
[2020-11-25] MEDS: FAMOTIDINE 20 MG TAB PO SCH ×2 (12:54→22:18)
[2020-11-25] MEDS: ASPIRIN 81 MG TAB CHEW PO SCH (12:54)
[2020-11-25] MEDS: SPIRONOLACTONE 25 MG TAB PO SCH (12:54)
[2020-11-25] MEDS: MAGNESIUM OXIDE 400 MG TAB PO SCH (12:54)
[2020-11-25] MEDS: POTASSIUM CHLORIDE 10 MEQ 10 MEQ/100 ML BAG IV SCH ×2 (12:59→14:33)
[2020-11-25] MEDS ORDERED: SODIUM CHLORIDE 0.9% 250ML 250 ML ONE (13:37)
[2020-11-25] MEDS ORDERED: POTASSIUM CHLORIDE ER 20 MEQ TAB PO SCH ×2 (14:00→17:00)
--- NOTE | 2020-11-25 14:13 | Progress Note ---
Assessment and Plan Pt is a 39 y.o. male with a past medical hx of COPD, NICMP (EF 35-40% on echo 09/2019), chronic HFrEF, HTN, GERD, and tobacco abuse. Echo reviewed (11/21/20): EF 20-25%. LV: mod dilated, Mild concentric LVH, Severe hypokinesis, severe dyastolic dysfunction (restrictive pattern). RV mod dilated. RV mildly hypokinetic. Mild MR. Mod TR. RVSP 43. Pt is resting comfortably in bed, supine with no SOB. LLE shows significant improvement of edema. Telemetry reviewed: ST 104. High HR 151 overnight. RLE swelling addressed per vascular recs. Lasix 40mg IV QD resumed after potassium repletion. Will consider conversion to PO diuretic tomorrow pending clinical course. Repeat BMP in AM. Continue Aldactone. Continue BB, Lisinopril in setting of Cardiomyopathy. Continue DVT prophylaxis per primary. Currently stable cardiac status. Scheduled for Lexiscan in AM. NPO after midnight. Will follow. This patient was seen in conjunction with Dr Mary Reece, who agrees with this assessment and plan of care. - Patient Problems (1) Acute on chronic HFrEF (heart failure with reduced ejection fraction) Current Visit: Yes Status: Acute (2) NICM (nonischemic cardiomyopathy) Current Visit: Yes Status: Chronic (3) COPD (chronic obstructive pulmonary disease) Current Visit: Yes Status: Chronic (4) Elevated troponin Current Visit: Yes Status: Acute (5) Hypokalemia Current Visit: Yes Status: Acute (6) HTN (hypertension) Current Visit: Yes Status: Chronic Qualifiers: Hypertension type: essential hypertension Qualified Code(s): I10 - Essential (primary) hypertension (7) Gastroesophageal reflux disease Current Visit: Yes Status: Chronic Qualifiers: Esophagitis presence: without esophagitis Qualified Code(s): K21.9 - Gastro-esophageal reflux disease without esophagitis (8) Obesity Current Visit: Yes Status: Chronic Qualifiers: Obesity type: due to excess calories (9) Tobacco use Current Visit: Yes Status: Chronic (10) Cellulitis Current Visit: Yes Status: Acute Subjective Date of service: 11/25/20 Principal diagnosis: HFrEF Interval history: Pt is resting comfortably in bed, supine with no SOB. LLE shows significant improvement of edema. Telemetry reviewed: ST 104. High HR 151 overnight. Objective Last Vital Signs Temp 98.3 F 11/25/20 12:13 Pulse 93 H 11/25/20 12:54 Resp 20 11/25/20 12:13 BP 147/104 11/25/20 12:13 Pulse Ox 97 11/25/20 12:13 - Physical Examination General: No Apparent Distress HEENT: Positive: PERRL, Normocephaly, Mucus Membranes Moist Neck: Positive: neck supple, trachea midline Cardiac: Positive: Reg Rate and Rhythm, S1/S2 Lungs: Positive: clear to auscultation, Normal Breath Sounds Neuro: Positive: Grossly Intact Abdomen: Positive: Unremarkable Skin: Negative: Rash, Wound Extremities: Present: upper extr. pulses, lower extr. pulses, +1 Edema - Labs and Meds Cardiac Enzymes 11/25/20 Range/Units 05:33 AST 17 (5-40) units/L CBC 11/25/20 Range/Units 05:33 WBC 11.8 H (4.5-11.0) K/mm3 RBC 3.66 (3.65-5.03) M/mm3 Hgb 11.3 L (11.8-15.2) gm/dl Hct 34.8 L (35.5-45.6) % Plt Count 158 (140-440) K/mm3 Lymph # (Auto) 0.2 L (1.2-5.4) K/mm3 [place] # (Auto) 1.0 H (0.0-0.8) K/mm3 Eos # (Auto) 0.0 (0.0-0.4) K/mm3 Baso # (Auto) 0.0 (0.0-0.1) K/mm3 Comprehensive Metabolic Panel 11/25/20 Range/Units 05:33 Sodium 141 (137-145) mmol/L Potassium 3.3 L D (3.6-5.0) mmol/L Chloride 99.6 (98-107) mmol/L Carbon Dioxide 34 H (22-30) mmol/L BUN 25 H (9-20) mg/dL Creatinine 1.1 (0.8-1.3) mg/dL Glucose 120 H (75-100) mg/dL Calcium 7.9 L (8.4-10.2) mg/dL AST 17 (5-40) units/L ALT 18 (7-56) units/L Alkaline Phosphatase 107 (35-129) units/L Total Protein 5.6 L (6.3-8.2) g/dL Albumin 2.3 L (3.9-5) g/dL - Imaging and Cardiology EKG: report reviewed, image reviewed Echo: report reviewed - Telemetry EKG Rhythm: Sinus Tachycardia - EKG Sinus rhythms and dysrhythmias: sinus rhythm
[2020-11-25] MEDS: cefTRIAXone/NS 2 GM/100 ML 2 GM/100 ML BAG IV SCH (14:37)
[2020-11-25] MEDS: oxyCODONE /ACETAMINOPHEN 5-325MG TAB PO PRN (22:20)
[2020-11-25 23:09] LABS: BUN/Creatinine Ratio 21; Blood Urea Nitrogen 23 mg/dL (9-20); Calcium 7.8 mg/dL (8.4-10.2); Hemolysis Index 46
[2020-11-26 05:46] LABS: Hematocrit 32.2 % (35.5-45.6); Mean Corpuscular HGB Conc 34 % (32-34); Mean Corpuscular Volume 94 fl (84-94); Platelet Count 180 K/mm3 (140-440); Red Blood Count 3.43 M/mm3 (3.65-5.03); Red Cell Distribution Width 16.8 % (13.2-15.2)
[2020-11-26 05:49] LABS: Lymphocytes % (Auto) 2.9 % (13.4-35.0)
[2020-11-26 05:50] LABS: Basophils # (Auto) 0.1 K/mm3 (0.0-0.1); Basophils % (Auto) 1.2 % (0.0-1.8); Eosinophils % (Auto) 0.1 % (0.0-4.3); Lymphocytes # (Auto) 0.3 K/mm3 (1.2-5.4); Monocytes # (Auto) 0.8 K/mm3 (0.0-0.8); Monocytes % (Auto) 8.8 % (0.0-7.3)
[2020-11-26 06:10] LABS: Alanine Aminotransferase 24 units/L (7-56); Albumin 2.4 g/dL (3.9-5); BUN/Creatinine Ratio 19; Blood Urea Nitrogen 21 mg/dL (9-20); Calcium 7.9 mg/dL (8.4-10.2); Hemolysis Index 4
[2020-11-26] MEDS ORDERED: REGADENOSON 0.4 MG/5 ML INJ IV ONE (06:38)
--- NOTE | 2020-11-26 10:08 | Progress Note ---
Assessment and Plan Assessment and plan: --Acute on chronic systolic CHF EF 20 to 25% Antifailure medications IV diuretics, beta-blockers, JUSTO inhibitors Input output monitoring, low-sodium diet, free water restriction Cardiology following, recommend ischemia work-up Stress test; reversible ischemia moderate size anterior and anterior apical a reas globally dilated LV , ejection fraction 20% Cardiology recommend left heart catheterization on 11/29/2020 Continue current cardiac medications --Chronic leg swelling Venous Doppler; bilateral negative for DVT Arterial Doppler; bilateral no stenosis Patient Will follow up with vascular surgery Upon discharge for further evaluation and management. --Right lower extremity cellulitis On ceftriaxone, follow cultures Keep RLE elevated. Empiric antibiotics --HTN; moderate control Continue current antihypertensives And as needed hydralazine --Obesity; BMI 32.7; patient needs weight reduction when medically stable --DVT prophylaxis - heparin Closely monitor the patient and adjust management as needed Plan of care reviewed with the patient and and his nurse Cardiology evaluation recommendations noted and appreciated 11/22. Patient seen and examined at bedside this morning. Complains of right lower extremity pain. On diuretics for congestive heart failure. Started him on antibiotics for RLE cellulitis. Vascular studies both venous and arterial were essentially normal. Vascular surgery evaluation appreciated. 11/23. Continues to diurese well. I/O reviewed. Echocardiogram shows LVEF 20 - 25%. Cardiology following. 11/24. Doing well. K is low - will replete. On diuretics. His right leg pain is better. Remains on ceftriaxone. 11/25. He complains his leg pain is still there. He is on antibiotics. On diuretics for heart failure 11/26. Abnormal stress test with reversible ischemia, cardiology recommended left heart catheterization on 11/29/2020 Continue current cardiac medications History Interval history: I have seen and examined the patient at the bedside Patient's chart and medications reviewed No new events reported by the nursing staff Patient was scheduled for stress test today Vital signs noted Hospitalist Physical - Constitutional Vitals: Temp Pulse Resp BP Pulse Ox 98.0 F 83 18 127/91 93 11/26/20 04:40 11/26/20 04:40 11/26/20 04:40 11/26/20 04:40 11/26/20 04:40 General appearance: Present: no acute distress, well-nourished, obese - EENT Eyes: Present: PERRL, EOM intact - Neck Neck: Present: supple, normal ROM - Respiratory Respiratory effort: normal Respiratory: bilateral: diminished, negative: rales, rhonchi, wheezing - Cardiovascular Rhythm: regular Heart Sounds: Present: S1 & S2 - Extremities Extremities: no ischemia Extremity abnormal: edema - Abdominal General gastrointestinal: soft, non-tender, non-distended, normal bowel sounds - Integumentary Integumentary: Present: clear, warm - Psychiatric Psychiatric: appropriate mood/affect, cooperative - Neurologic Neurologic: CNII-XII intact, moves all extremities HEART Score - HEART Score Age: < 45 Troponin: Troponin T 0.065 ng/mL (0.00-0.029) H 11/21/20 10:21 Troponin: < normal limit - Critical Actions Critical Actions: 0-3 pts:0.9-1.7%risk of adverse cardiac event.Candidate for discharge Results - Labs CBC & Chem 7: 11/26/20 05:10 11/26/20 05:10 Labs: Laboratory Last Values WBC 9.5 K/mm3 (4.5-11.0) 11/26/20 05:10 RBC 3.43 M/mm3 (3.65-5.03) L 11/26/20 05:10 Hgb 11.0 gm/dl (11.8-15.2) L 11/26/20 05:10 Hct 32.2 % (35.5-45.6) L 11/26/20 05:10 MCV 94 fl (84-94) 11/26/20 05:10 MCH 32 pg (28-32) 11/26/20 05:10 MCHC 34 % (32-34) 11/26/20 05:10 RDW 16.8 % (13.2-15.2) H 11/26/20 05:10 Plt Count 180 K/mm3 (140-440) 11/26/20 05:10 Lymph % (Auto) 2.9 % (13.4-35.0) L 11/26/20 05:10 [place] % (Auto) 8.8 % (0.0-7.3) H 11/26/20 05:10 Eos % (Auto) 0.1 % (0.0-4.3) 11/26/20 05:10 Baso % (Auto) 1.2 % (0.0-1.8) 11/26/20 05:10 Lymph # (Auto) 0.3 K/mm3 (1.2-5.4) L 11/26/20 05:10 [place] # (Auto) 0.8 K/mm3 (0.0-0.8) 11/26/20 05:10 Eos # (Auto) 0.0 K/mm3 (0.0-0.4) 11/26/20 05:10 Baso # (Auto) 0.1 K/mm3 (0.0-0.1) 11/26/20 05:10 Add Manual Diff Complete 11/23/20 05:53 Total Counted 100 11/23/20 05:53 Seg Neutrophils % 86.0 % (40.0-70.0) H 11/26/20 05:10 Seg Neuts % (Manual) 92.0 % (40.0-70.0) H 11/23/20 05:53 Band Neutrophils % 3.0 % 11/23/20 05:53 Lymphocytes % (Manual) 1.0 % (13.4-35.0) L 11/22/20 05:15 Monocytes % (Manual) 5.0 % (0.0-7.3) 11/23/20 05:53 Nucleated RBC % Not Reportable 11/23/20 05:53 Seg Neutrophils # 8.2 K/mm3 (1.8-7.7) H 11/26/20 05:10 Seg Neutrophils # Man 12.2 K/mm3 (1.8-7.7) H 11/23/20 05:53 Band Neutrophils # 0.4 K/mm3 11/23/20 05:53 Lymphocytes # (Manual) 0.0 K/mm3 (1.2-5.4) L 11/23/20 05:53 Abs React Lymphs (Man) 0.0 K/mm3 11/23/20 05:53 Monocytes # (Manual) 0.7 K/mm3 (0.0-0.8) 11/23/20 05:53 Eosinophils # (Manual) 0.0 K/mm3 (0.0-0.4) 11/23/20 05:53 Basophils # (Manual) 0.0 K/mm3 (0.0-0.1) 11/23/20 05:53 Metamyelocytes # 0.0 K/mm3 11/23/20 05:53 Myelocytes # 0.0 K/mm3 11/23/20 05:53 Promyelocytes # 0.0 K/mm3 11/23/20 05:53 Blast Cells # 0.0 K/mm3 11/23/20 05:53 WBC Morphology Not Reportable 11/23/20 05:53 Hypersegmented Neuts Not Reportable 11/23/20 05:53 Hyposegmented Neuts Not Reportable 11/23/20 05:53 Hypogranular Neuts Not Reportable 11/23/20 05:53 Smudge Cells Not Reportable 11/23/20 05:53 Toxic Granulation Not Reportable 11/23/20 05:53 Toxic Vacuolation Not Reportable 11/23/20 05:53 Dohle Bodies Not Reportable 11/23/20 05:53 Pelger-Huet Anomaly Not Reportable 11/23/20 05:53 Nadya Rods Not Reportable 11/23/20 05:53 Platelet Estimate Consistent w auto 11/23/20 05:53 Clumped Platelets Not Reportable 11/23/20 05:53 Plt Clumps, EDTA Not Reportable 11/23/20 05:53 Large Platelets Rare 11/23/20 05:53 Giant Platelets Not Reportable 11/23/20 05:53 Platelet Satelliting Not Reportable 11/23/20 05:53 Plt Morphology Comment Not Reportable 11/23/20 05:53 RBC Morphology Not Reportable 11/23/20 05:53 Dimorphic RBCs Not Reportable 11/23/20 05:53 Polychromasia Not Reportable 11/23/20 05:53 Hypochromasia Not Reportable 11/23/20 05:53 Poikilocytosis Not Reportable 11/23/20 05:53 Anisocytosis 1+ 11/23/20 05:53 Microcytosis Not Reportable 11/23/20 05:53 Macrocytosis Not Reportable 11/23/20 05:53 Spherocytes Not Reportable 11/23/20 05:53 Pappenheimer Bodies Not Reportable 11/23/20 05:53 Sickle Cells Not Reportable 11/23/20 05:53 Target Cells Not Reportable 11/23/20 05:53 Tear Drop Cells Not Reportable 11/23/20 05:53 Ovalocytes Not Reportable 11/23/20 05:53 Helmet Cells Not Reportable 11/23/20 05:53 Boyd-Hildebran Bodies Not Reportable 11/23/20 05:53 [place] Rings Not Reportable 11/23/20 05:53 Depue Cells Not Reportable 11/23/20 05:53 Bite Cells Not Reportable 11/23/20 05:53 Crenated Cell Not Reportable 11/23/20 05:53 Elliptocytes Not Reportable 11/23/20 05:53 Acanthocytes (Spur) Not Reportable 11/23/20 05:53 Rouleaux Not Reportable 11/23/20 05:53 Hemoglobin C Crystals Not Reportable 11/23/20 05:53 Schistocytes Not Reportable 11/23/20 05:53 Malaria parasites Not Reportable 11/23/20 05:53 Louie Bodies Not Reportable 11/23/20 05:53 Hem Pathologist Commnt No 11/23/20 05:53 Sodium 142 mmol/L (137-145) 11/26/20 05:10 Potassium 3.4 mmol/L (3.6-5.0) L 11/26/20 05:10 Chloride 100.7 mmol/L (98-107) 11/26/20 05:10 Carbon Dioxide 34 mmol/L (22-30) H 11/26/20 05:10 Anion Gap 11 mmol/L 11/26/20 05:10 BUN 21 mg/dL (9-20) H 11/26/20 05:10 Creatinine 1.1 mg/dL (0.8-1.3) 11/26/20 05:10 Estimated GFR > 60 ml/min 11/26/20 05:10 BUN/Creatinine Ratio 19 % 11/26/20 05:10 Glucose 121 mg/dL (75-100) H 11/26/20 05:10 POC Glucose 196 mg/dL (70-105) H 11/22/20 10:13 Hemoglobin A1c 6.8 % (4-6) H 11/22/20 05:15 Calcium 7.9 mg/dL (8.4-10.2) L 11/26/20 05:10 Magnesium 1.80 mg/dL (1.7-2.3) 11/26/20 05:10 Total Bilirubin 0.30 mg/dL (0.1-1.2) 11/26/20 05:10 AST 21 units/L (5-40) 11/26/20 05:10 ALT 24 units/L (7-56) 11/26/20 05:10 Alkaline Phosphatase 99 units/L (35-129) 11/26/20 05:10 Troponin T 0.065 ng/mL (0.00-0.029) H 11/21/20 10:21 NT-Pro-B Natriuret Pep 31514 pg/mL (0-450) H 11/21/20 08:06 Total Protein 5.4 g/dL (6.3-8.2) L 11/26/20 05:10 Albumin 2.4 g/dL (3.9-5) L 11/26/20 05:10 Albumin/Globulin Ratio 0.8 % 11/26/20 05:10 Triglycerides 145 mg/dL (2-149) 11/21/20 10:21 Cholesterol 111 mg/dL (50-199) 11/21/20 10:21 LDL Cholesterol Direct 53 mg/dL (50-130) 11/21/20 10:21 HDL Cholesterol 27 mg/dL (40-59) L 11/21/20 10:21 Cholesterol/HDL Ratio 4.11 % 11/21/20 10:21 Procalcitonin 3.62 ng/mL (<0.15) 11/23/20 05:53 Hyatt/IV: Voiding Method Urinal Active Medications - Current Medications Current Medications: Generic Name Dose Route Start Last Admin Trade Name Freq PRN Reason Stop Dose Admin Acetaminophen 650 mg 11/21/20 22:55 Acetaminophen 325 Mg Tab PO Q4H PRN Pain MILD(1-3)/Fever >100.5/YU Aspirin 81 mg 11/22/20 10:00 11/25/20 12:54 Aspirin 81 Mg Tab Chew PO 81 mg QDAY AMRITA Administration Carvedilol 12.5 mg 11/21/20 23:00 11/25/20 22:18 Carvedilol 12.5 Mg Tab PO 12.5 mg BID AMRITA Administration Famotidine 20 mg 11/22/20 10:00 11/25/20 22:18 Famotidine 20 Mg Tab PO 20 mg BID AMRITA Administration Folic Acid 1 mg 11/22/20 10:00 11/25/20 12:53 Folic Acid 1 Mg Tab PO 1 mg QDAY AMRITA Administration Furosemide 40 mg 11/25/20 10:00 11/25/20 12:50 Furosemide 40 Mg/4 Ml Inj IV 40 mg QDAY AMRITA Administration Heparin Sodium (Porcine) 5,000 unit 11/21/20 23:00 11/25/20 22:19 Heparin 5,000 Unit/1 Ml Vial SUB-Q 5,000 unit Q12HR AMRITA Administration Hydromorphone HCl 0.5 mg 11/21/20 14:00 11/21/20 22:09 Hydromorphone 1 Mg/1 Ml Inj IV 0.5 mg Q3H PRN Administration Pain , Severe (7-10) Ceftriaxone Sodium 2 gm in 100 mls @ 200 mls/hr 11/22/20 14:00 11/25/20 14:37 Rocephin/Ns 2 Gm/100 Ml IV 200 mls/hr Q24H AMRITA Administration Protocol Lisinopril 20 mg 11/23/20 10:00 11/25/20 12:52 Lisinopril 20 Mg Tab PO 20 mg QDAY AMRITA Administration Magnesium Oxide 400 mg 11/25/20 10:00 11/25/20 12:54 Magnesium Oxide 400 Mg Tab PO 400 mg QDAY AMRITA Administration Methocarbamol 750 mg 11/21/20 22:54 Methocarbamol 750 Mg Tab PO Q8HR PRN muscle spasm Metoclopramide HCl 10 mg 11/21/20 22:55 Metoclopramide 10 Mg/2 Ml Inj IV Q6H PRN Nausea And Vomiting Morphine Sulfate 2 mg 11/22/20 14:00 11/22/20 15:53 Morphine 2 Mg/1 Ml Inj IV 2 mg Q4H PRN Administration Pain, Moderate (4-6) Ondansetron HCl 4 mg 11/21/20 22:55 Ondansetron 4 Mg/2 Ml Inj IV Q3H PRN Nausea And Vomiting Oxycodone/Acetaminophen 1 tab 11/21/20 22:55 11/25/20 22:20 Oxycodone /Acetaminophen 5-325mg Tab PO 1 tab Q6H PRN Administration Pain, Moderate (4-6) Sodium Chloride 10 ml 11/22/20 10:00 11/25/20 22:19 Sodium Chloride 0.9% 10 Ml Flush Syringe IV 10 ml BID AMRITA Administration Sodium Chloride 10 ml 11/21/20 22:55 Sodium Chloride 0.9% 10 Ml Flush Syringe IV PRN PRN LINE FLUSH Spironolactone 25 mg 11/22/20 10:00 11/25/20 12:54 Spironolactone 25 Mg Tab PO 25 mg QDAY AMRITA Administration Nutrition/Malnutrition Assess - Dietary Evaluation Nutrition/Malnutrition Findings: Nutrition Notes Start: 11/21/20 14:27 Freq: Status: Active Protocol: Document 11/21/20 14:28 CW (Rec: 11/21/20 14:31 CW [id number]) Nutrition Notes Need for Assessment generated from: library cataloging 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 Pt weight is relatively stable based on last admission weight x6 months ago. Per chart, PO intake is excelent. Skin is intact. Nutrition Intervention Revisit per MD consult or patient Sign Off request: Additional Comments S/O for stable weight and good intact
[2020-11-26] MEDS: HEPARIN 5,000 UNIT/1 ML VIAL SUB-Q SCH ×2 (11:06→21:46)
[2020-11-26] MEDS: FUROSEMIDE 40 MG/4 ML INJ IV SCH (11:08)
[2020-11-26] MEDS: ASPIRIN 81 MG TAB CHEW PO SCH (11:08)
[2020-11-26] MEDS: SPIRONOLACTONE 25 MG TAB PO SCH (11:08)
[2020-11-26] MEDS: FOLIC ACID 1 MG TAB PO SCH (11:09)
[2020-11-26] MEDS: FAMOTIDINE 20 MG TAB PO SCH ×2 (11:09→21:46)
[2020-11-26] MEDS: LISINOPRIL 20 MG TAB PO SCH (11:09)
[2020-11-26] MEDS: MAGNESIUM OXIDE 400 MG TAB PO SCH (11:10)
[2020-11-26] MEDS: carvediloL 12.5 MG TAB PO SCH ×2 (11:10→21:46)
--- NOTE | 2020-11-26 14:18 | Progress Note ---
Assessment and Plan Pt is a 39 y.o. male with a past medical hx of COPD, NICMP (EF 35-40% on echo 09/2019), chronic HFrEF, HTN, GERD, and tobacco abuse. Echo reviewed (11/21/20): EF 20-25%. LV: mod dilated, Mild concentric LVH, Severe hypokinesis, severe dyastolic dysfunction (restrictive pattern). RV mod dilated. RV mildly hypokinetic. Mild MR. Mod TR. RVSP 43. Telemetry reviewed: SR 80. No events overnight. Lexiscan (11/26/2020) Anterior apical ischemia. Coronary angiography recommended for definitive diagnosis. Indications, potential risks and benefits reviewed with the patient at bedside and he is agreeable to proceed with LHC on sunday. Scheduled for LHC on sunday (11/29/20). RLE swelling addressed per vascular recs. Continue current diuretic regimen. Repeat BMP in AM. Continue BB, Lisinopril in setting of Cardiomyopathy. Continue DVT prophylaxis per primary. Currently stable cardiac status. Will follow. This patient was seen in conjunction with Dr Mary Reece, who agrees with this assessment and plan of care. - Patient Problems (1) Acute on chronic HFrEF (heart failure with reduced ejection fraction) Current Visit: Yes Status: Acute LLE edema is significantly improved, 1+ today. Pt is resting comfortably, no SOB or orthopnea. (2) CMP (cardiomyopathy) Current Visit: Yes Status: Chronic Lexiscan (11/26/2020) Anterior apical ischemia. Scheduled for LHC on sunday (11/29/20). (3) COPD (chronic obstructive pulmonary disease) Current Visit: Yes Status: Chronic (4) Elevated troponin Current Visit: Yes Status: Acute Troponin is sub acute. Pt denies CP. Continue to trend No. (5) Hypokalemia Current Visit: Yes Status: Acute Potassium is being repleated PRN per primary team. (6) HTN (hypertension) Current Visit: Yes Status: Chronic Qualifiers: Hypertension type: essential hypertension Qualified Code(s): I10 - Essential (primary) hypertension Optimize antihypertensive regimen. Increase Coreg to 25mg PO BID. (7) Gastroesophageal reflux disease Current Visit: Yes Status: Chronic Qualifiers: Esophagitis presence: without esophagitis Qualified Code(s): K21.9 - Gastro-esophageal reflux disease without esophagitis (8) Obesity Current Visit: Yes Status: Chronic Qualifiers: Obesity type: due to excess calories (9) Tobacco use Current Visit: Yes Status: Chronic Tobacco cessation encouraged. (10) Cellulitis Current Visit: Yes Status: Acute Subjective Date of service: 11/26/20 Principal diagnosis: HFrEF Interval history: Pt is resting comfortably in bed, supine with no SOB. LLE shows significant improvement of edema. Telemetry reviewed: SR 80. No events overnight. Objective Last Vital Signs Temp 98.0 F 11/26/20 04:40 Pulse 109 H 11/26/20 11:10 Resp 18 11/26/20 04:40 BP 141/106 11/26/20 11:10 Pulse Ox 93 11/26/20 04:40 - Physical Examination General: No Apparent Distress HEENT: Positive: PERRL, Normocephaly, Mucus Membranes Moist Neck: Positive: neck supple, trachea midline Cardiac: Positive: Reg Rate and Rhythm, S1/S2 Lungs: Positive: clear to auscultation, Normal Breath Sounds Neuro: Positive: Grossly Intact Abdomen: Positive: Unremarkable Skin: Negative: Rash, Wound Extremities: Present: upper extr. pulses, lower extr. pulses, +1 Edema - Labs and Meds Cardiac Enzymes 11/26/20 Range/Units 05:10 AST 21 (5-40) units/L CBC 11/26/20 Range/Units 05:10 WBC 9.5 (4.5-11.0) K/mm3 RBC 3.43 L (3.65-5.03) M/mm3 Hgb 11.0 L (11.8-15.2) gm/dl Hct 32.2 L (35.5-45.6) % Plt Count 180 (140-440) K/mm3 Lymph # (Auto) 0.3 L (1.2-5.4) K/mm3 [place] # (Auto) 0.8 (0.0-0.8) K/mm3 Eos # (Auto) 0.0 (0.0-0.4) K/mm3 Baso # (Auto) 0.1 (0.0-0.1) K/mm3 Comprehensive Metabolic Panel 11/25/20 11/26/20 Range/Units 22:39 05:10 Sodium 138 142 (137-145) mmol/L Potassium 3.4 L 3.4 L (3.6-5.0) mmol/L Chloride 96.5 L 100.7 (98-107) mmol/L Carbon Dioxide 34 H 34 H (22-30) mmol/L BUN 23 H 21 H (9-20) mg/dL Creatinine 1.1 1.1 (0.8-1.3) mg/dL Glucose 123 H 121 H (75-100) mg/dL Calcium 7.8 L 7.9 L (8.4-10.2) mg/dL AST 21 (5-40) units/L ALT 24 (7-56) units/L Alkaline Phosphatase 99 (35-129) units/L Total Protein 5.4 L (6.3-8.2) g/dL Albumin 2.4 L (3.9-5) g/dL - Imaging and Cardiology EKG: report reviewed, image reviewed Echo: report reviewed - Telemetry EKG Rhythm: Sinus Rhythm - EKG Sinus rhythms and dysrhythmias: sinus rhythm
[2020-11-26] MEDS: cefTRIAXone/NS 2 GM/100 ML 2 GM/100 ML BAG IV SCH (15:30)
--- NOTE | 2020-11-26 17:44 | Treadmill Report ---
NUCLEAR PERFUSION SCAN REFERRING PHYSICIAN: Hospitalist service. PROTOCOL: The patient was assessed in postoperative state, given 10 mCi of technetium 99m at rest. The patient underwent rest imaging. The patient underwent Lexiscan stress test per standard protocol. At peak stress, the patient was given 26 mCi of technetium 99m. Shortly thereafter, the patient underwent stress imaging. Stress imaging was reviewed in the horizontal long axis, vertical long axis, and short axis views. Technically difficult study, but there is a medium-sized reversible anterior and anterior apical defect, questionable consistent with ischemia. Gated wall motion reveals severe global left ventricular hypokinesis. Calculated ejection fraction 20%. Mildly dilated LV chamber size in systole and diastole. CONCLUSIONS: 1. Abnormal myocardial perfusion scan with a moderate size anterior and anterior apical reversible defect concerning for ischemia. 2. Globally dilated left ventricle with calculated ejection fraction of 20%. JOB# [id number] SBM/NTS
[2020-11-26] MEDS: oxyCODONE /ACETAMINOPHEN 5-325MG TAB PO PRN (23:55)
[2020-11-27 08:23] LABS: BUN/Creatinine Ratio 18; Blood Urea Nitrogen 18 mg/dL (9-20); Calcium 7.9 mg/dL (8.4-10.2); Hemolysis Index 9
[2020-11-27] MEDS: oxyCODONE /ACETAMINOPHEN 5-325MG TAB PO PRN ×2 (08:46→21:41)
[2020-11-27] MEDS ORDERED: POTASSIUM CHLORIDE ER 20 MEQ TAB PO ONE (09:21)
--- NOTE | 2020-11-27 09:21 | Progress Note ---
Assessment and Plan Assessment and plan: 40 Year old Male presents with bilateral lower extremity pain and swelling of both the legs. Patient has been compliant with Lasix but the swelling is not going down. Patient also has some shortness of breath since yesterday. Orthopnea present. No chest pain or pressure. Swelling of the legs has been going for a long time. Patient is being treated for hypertension and congestive heart failure and COPD. No exacerbating or relieving factors. Patient on Lasix. The patient is a 40-year-old male present with a chief complaint of bilateral lower extremity pain. Patient states he came to the emergency department because he had pain in bilateral lower extremities secondary to the edema. Patient states he has been compliant with his Lasix but is not removing the fluid. Patient admits to some shortness of breath which occurred last night but adamantly denies ever having any type of chest pain pressure tightness or discomfort. Patient denies history of fever or cough. Patient gives his lower extremity pain a score of 10/10 --Acute on chronic systolic CHF EF 20 to 25% Antifailure medications IV diuretics, beta-blockers, JUSTO inhibitors Input output monitoring, low-sodium diet, free water restriction Cardiology following, recommend ischemia work-up Stress test; reversible ischemia moderate size anterior and anterior apical areas globally dilated LV , ejection fraction 20% Cardiology recommend left heart catheterization on 11/29/2020 Continue current cardiac medications --Chronic leg swelling Venous Doppler; bilateral negative for DVT Arterial Doppler; bilateral no stenosis Patient Will follow up with vascular surgery Upon discharge for further evaluation and management. --Right lower extremity cellulitis On ceftriaxone, follow cultures Keep RLE elevated. Empiric antibiotics --HTN; moderate control Continue current antihypertensives And as needed hydralazine --Severe protein calorie malnutrition/hypoproteinemia; Nutritional supplement, nutrition consult, supportive care --Obesity; BMI 32.7; patient needs weight reduction when medically stable --DVT prophylaxis - heparin Closely monitor the patient and adjust management as needed Plan of care reviewed with the patient and and his nurse Cardiology evaluation recommendations noted and appreciated 11/22. Patient seen and examined at bedside this morning. Complains of right l ower extremity pain. On diuretics for congestive heart failure. Started him on antibiotics for RLE cellulitis. Vascular studies both venous and arterial were essentially normal. Vascular surgery evaluation appreciated. 11/23. Continues to diurese well. I/O reviewed. Echocardiogram shows LVEF 20 -2 5%. Cardiology following. 11/24. Doing well. K is low - will replete. On diuretics. His right leg pain is better. Remains on ceftriaxone. 11/25. He complains his leg pain is still there. He is on antibiotics. On diuretics for heart failure 11/26. Abnormal stress test with reversible ischemia, cardiology recommended left heart catheterization on 11/29/2020 Continue current cardiac medications 11/27: Replace K. Patient for cardiac cath on 11/29/20, Continue abx. History Interval history: Patient seen and examined, reports still with discomfort on his lower ext edema and chronic infection. Although states he is improving some Hospitalist Physical - Physical exam Narrative exam: General appearance: Present: no acute distress, well-nourished, obese - EENT Eyes: Present: PERRL, EOM intact - Neck Neck: Present: supple, normal ROM - Respiratory Respiratory effort: normal Respiratory: bilateral: diminished, negative: rales, rhonchi, wheezing - Cardiovascular Rhythm: regular Heart Sounds: Present: S1 & S2 - Extremities Extremities: no ischemia Extremity abnormal: edema plus 2 bilateral lower ext - Abdominal General gastrointestinal: soft, non-tender, non-distended, normal bowel sounds - Integumentary Integumentary: Present: clear, warm - Psychiatric Psychiatric: appropriate mood/affect, cooperative - Neurologic Neurologic: CNII-XII intact, moves all extremities - Constitutional Vitals: Temp Pulse Resp BP Pulse Ox 98.6 F 89 18 137/98 95 11/27/20 08:14 11/27/20 08:14 11/27/20 08:14 11/27/20 08:14 11/27/20 08:14 General appearance: Present: no acute distress, well-nourished, obese HEART Score - HEART Score Age: < 45 Troponin: Troponin T 0.065 ng/mL (0.00-0.029) H 11/21/20 10:21 Troponin: < normal limit - Critical Actions Critical Actions: 0-3 pts:0.9-1.7%risk of adverse cardiac event.Candidate for discharge Results - Labs CBC & Chem 7: 11/26/20 05:10 11/27/20 07:15 Labs: Laboratory Last Values WBC 9.5 K/mm3 (4.5-11.0) 11/26/20 05:10 RBC 3.43 M/mm3 (3.65-5.03) L 11/26/20 05:10 Hgb 11.0 gm/dl (11.8-15.2) L 11/26/20 05:10 Hct 32.2 % (35.5-45.6) L 11/26/20 05:10 MCV 94 fl (84-94) 11/26/20 05:10 MCH 32 pg (28-32) 11/26/20 05:10 MCHC 34 % (32-34) 11/26/20 05:10 RDW 16.8 % (13.2-15.2) H 11/26/20 05:10 Plt Count 180 K/mm3 (140-440) 11/26/20 05:10 Lymph % (Auto) 2.9 % (13.4-35.0) L 11/26/20 05:10 Branch % (Auto) 8.8 % (0.0-7.3) H 11/26/20 05:10 Eos % (Auto) 0.1 % (0.0-4.3) 11/26/20 05:10 Baso % (Auto) 1.2 % (0.0-1.8) 11/26/20 05:10 Lymph # (Auto) 0.3 K/mm3 (1.2-5.4) L 11/26/20 05:10 Branch # (Auto) 0.8 K/mm3 (0.0-0.8) 11/26/20 05:10 Eos # (Auto) 0.0 K/mm3 (0.0-0.4) 11/26/20 05:10 Baso # (Auto) 0.1 K/mm3 (0.0-0.1) 11/26/20 05:10 Add Manual Diff Complete 11/23/20 05:53 Total Counted 100 11/23/20 05:53 Seg Neutrophils % 86.0 % (40.0-70.0) H 11/26/20 05:10 Seg Neuts % (Manual) 92.0 % (40.0-70.0) H 11/23/20 05:53 Band Neutrophils % 3.0 % 11/23/20 05:53 Lymphocytes % (Manual) 1.0 % (13.4-35.0) L 11/22/20 05:15 Monocytes % (Manual) 5.0 % (0.0-7.3) 11/23/20 05:53 Nucleated RBC % Not Reportable 11/23/20 05:53 Seg Neutrophils # 8.2 K/mm3 (1.8-7.7) H 11/26/20 05:10 Seg Neutrophils # Man 12.2 K/mm3 (1.8-7.7) H 11/23/20 05:53 Band Neutrophils # 0.4 K/mm3 11/23/20 05:53 Lymphocytes # (Manual) 0.0 K/mm3 (1.2-5.4) L 11/23/20 05:53 Abs React Lymphs (Man) 0.0 K/mm3 11/23/20 05:53 Monocytes # (Manual) 0.7 K/mm3 (0.0-0.8) 11/23/20 05:53 Eosinophils # (Manual) 0.0 K/mm3 (0.0-0.4) 11/23/20 05:53 Basophils # (Manual) 0.0 K/mm3 (0.0-0.1) 11/23/20 05:53 Metamyelocytes # 0.0 K/mm3 11/23/20 05:53 Myelocytes # 0.0 K/mm3 11/23/20 05:53 Promyelocytes # 0.0 K/mm3 11/23/20 05:53 Blast Cells # 0.0 K/mm3 11/23/20 05:53 WBC Morphology Not Reportable 11/23/20 05:53 Hypersegmented Neuts Not Reportable 11/23/20 05:53 Hyposegmented Neuts Not Reportable 11/23/20 05:53 Hypogranular Neuts Not Reportable 11/23/20 05:53 Smudge Cells Not Reportable 11/23/20 05:53 Toxic Granulation Not Reportable 11/23/20 05:53 Toxic Vacuolation Not Reportable 11/23/20 05:53 Dohle Bodies Not Reportable 11/23/20 05:53 Pelger-Huet Anomaly Not Reportable 11/23/20 05:53 Nadya Rods Not Reportable 11/23/20 05:53 Platelet Estimate Consistent w auto 11/23/20 05:53 Clumped Platelets Not Reportable 11/23/20 05:53 Plt Clumps, EDTA Not Reportable 11/23/20 05:53 Large Platelets Rare 11/23/20 05:53 Giant Platelets Not Reportable 11/23/20 05:53 Platelet Satelliting Not Reportable 11/23/20 05:53 Plt Morphology Comment Not Reportable 11/23/20 05:53 RBC Morphology Not Reportable 11/23/20 05:53 Dimorphic RBCs Not Reportable 11/23/20 05:53 Polychromasia Not Reportable 11/23/20 05:53 Hypochromasia Not Reportable 11/23/20 05:53 Poikilocytosis Not Reportable 11/23/20 05:53 Anisocytosis 1+ 11/23/20 05:53 Microcytosis Not Reportable 11/23/20 05:53 Macrocytosis Not Reportable 11/23/20 05:53 Spherocytes Not Reportable 11/23/20 05:53 Pappenheimer Bodies Not Reportable 11/23/20 05:53 Sickle Cells Not Reportable 11/23/20 05:53 Target Cells Not Reportable 11/23/20 05:53 Tear Drop Cells Not Reportable 11/23/20 05:53 Ovalocytes Not Reportable 11/23/20 05:53 Helmet Cells Not Reportable 11/23/20 05:53 Boyd-Cucumber Bodies Not Reportable 11/23/20 05:53 [place] Rings Not Reportable 11/23/20 05:53 Pratts Cells Not Reportable 11/23/20 05:53 Bite Cells Not Reportable 11/23/20 05:53 Crenated Cell Not Reportable 11/23/20 05:53 Elliptocytes Not Reportable 11/23/20 05:53 Acanthocytes (Spur) Not Reportable 11/23/20 05:53 Rouleaux Not Reportable 11/23/20 05:53 Hemoglobin C Crystals Not Reportable 11/23/20 05:53 Schistocytes Not Reportable 11/23/20 05:53 Malaria parasites Not Reportable 11/23/20 05:53 Louie Bodies Not Reportable 11/23/20 05:53 Hem Pathologist Commnt No 11/23/20 05:53 Sodium 142 mmol/L (137-145) 11/27/20 07:15 Potassium 3.1 mmol/L (3.6-5.0) L 11/27/20 07:15 Chloride 98.9 mmol/L (98-107) 11/27/20 07:15 Carbon Dioxide 36 mmol/L (22-30) H 11/27/20 07:15 Anion Gap 10 mmol/L 11/27/20 07:15 BUN 18 mg/dL (9-20) 11/27/20 07:15 Creatinine 1.0 mg/dL (0.8-1.3) 11/27/20 07:15 Estimated GFR > 60 ml/min 11/27/20 07:15 BUN/Creatinine Ratio 18 % 11/27/20 07:15 Glucose 123 mg/dL (75-100) H 11/27/20 07:15 POC Glucose 196 mg/dL (70-105) H 11/22/20 10:13 Hemoglobin A1c 6.8 % (4-6) H 11/22/20 05:15 Calcium 7.9 mg/dL (8.4-10.2) L 11/27/20 07:15 Magnesium 1.80 mg/dL (1.7-2.3) 11/26/20 05:10 Total Bilirubin 0.30 mg/dL (0.1-1.2) 11/26/20 05:10 AST 21 units/L (5-40) 11/26/20 05:10 ALT 24 units/L (7-56) 11/26/20 05:10 Alkaline Phosphatase 99 units/L (35-129) 11/26/20 05:10 Troponin T 0.065 ng/mL (0.00-0.029) H 11/21/20 10:21 NT-Pro-B Natriuret Pep 25921 pg/mL (0-450) H 11/21/20 08:06 Total Protein 5.4 g/dL (6.3-8.2) L 11/26/20 05:10 Albumin 2.4 g/dL (3.9-5) L 11/26/20 05:10 Albumin/Globulin Ratio 0.8 % 11/26/20 05:10 Triglycerides 145 mg/dL (2-149) 11/21/20 10:21 Cholesterol 111 mg/dL (50-199) 11/21/20 10:21 LDL Cholesterol Direct 53 mg/dL (50-130) 11/21/20 10:21 HDL Cholesterol 27 mg/dL (40-59) L 11/21/20 10:21 Cholesterol/HDL Ratio 4.11 % 11/21/20 10:21 Procalcitonin 0.84 ng/mL (<0.15) 11/26/20 05:10 Hyatt/IV: Voiding Method Urinal Active Medications - Current Medications Current Medications: Generic Name Dose Route Start Last Admin Trade Name Freq PRN Reason Stop Dose Admin Acetaminophen 650 mg 11/21/20 22:55 Acetaminophen 325 Mg Tab PO Q4H PRN Pain MILD(1-3)/Fever >100.5/YU Aspirin 81 mg 11/22/20 10:00 11/26/20 11:08 Aspirin 81 Mg Tab Chew PO 81 mg QDAY AMRITA Administration Carvedilol 12.5 mg 11/21/20 23:00 11/26/20 21:46 Carvedilol 12.5 Mg Tab PO 12.5 mg BID AMRITA Administration Famotidine 20 mg 11/22/20 10:00 11/26/20 21:46 Famotidine 20 Mg Tab PO 20 mg BID AMRITA Administration Folic Acid 1 mg 11/22/20 10:00 11/26/20 11:09 Folic Acid 1 Mg Tab PO 1 mg QDAY AMRITA Administration Furosemide 40 mg 11/25/20 10:00 11/26/20 11:08 Furosemide 40 Mg/4 Ml Inj IV 40 mg QDAY AMRITA Administration Heparin Sodium (Porcine) 5,000 unit 11/21/20 23:00 11/26/20 21:46 Heparin 5,000 Unit/1 Ml Vial SUB-Q 5,000 unit Q12HR AMRITA Administration Hydromorphone HCl 0.5 mg 11/21/20 14:00 11/21/20 22:09 Hydromorphone 1 Mg/1 Ml Inj IV 0.5 mg Q3H PRN Administration Pain , Severe (7-10) Ceftriaxone Sodium 2 gm in 100 mls @ 200 mls/hr 11/22/20 14:00 11/26/20 15:30 Rocephin/Ns 2 Gm/100 Ml IV 200 mls/hr Q24H AMRITA Administration Protocol Lisinopril 20 mg 11/23/20 10:00 11/26/20 11:09 Lisinopril 20 Mg Tab PO 20 mg QDAY AMRITA Administration Magnesium Oxide 400 mg 11/25/20 10:00 11/26/20 11:10 Magnesium Oxide 400 Mg Tab PO 400 mg QDAY AMRITA Administration Methocarbamol 750 mg 11/21/20 22:54 Methocarbamol 750 Mg Tab PO Q8HR PRN muscle spasm Metoclopramide HCl 10 mg 11/21/20 22:55 Metoclopramide 10 Mg/2 Ml Inj IV Q6H PRN Nausea And Vomiting Morphine Sulfate 2 mg 11/22/20 14:00 11/22/20 15:53 Morphine 2 Mg/1 Ml Inj IV 2 mg Q4H PRN Administration Pain, Moderate (4-6) Ondansetron HCl 4 mg 11/21/20 22:55 Ondansetron 4 Mg/2 Ml Inj IV Q3H PRN Nausea And Vomiting Oxycodone/Acetaminophen 1 tab 11/21/20 22:55 11/27/20 08:46 Oxycodone /Acetaminophen 5-325mg Tab PO 1 tab Q6H PRN Administration Pain, Moderate (4-6) Sodium Chloride 10 ml 11/22/20 10:00 11/26/20 21:46 Sodium Chloride 0.9% 10 Ml Flush Syringe IV 10 ml BID AMRITA Administration Sodium Chloride 10 ml 11/21/20 22:55 Sodium Chloride 0.9% 10 Ml Flush Syringe IV PRN PRN LINE FLUSH Spironolactone 25 mg 11/22/20 10:00 11/26/20 11:08 Spironolactone 25 Mg Tab PO 25 mg QDAY AMRITA Administration Nutrition/Malnutrition Assess - Dietary Evaluation Nutrition/Malnutrition Findings: Nutrition Notes Start: 11/21/20 14:27 Freq: Status: Active Protocol: Document 11/21/20 14:28 CW (Rec: 11/21/20 14:31 [id number]) Nutrition Notes 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 Pt weight is relatively stable based on last admission weight x6 months ago. Per chart, PO intake is excelent. Skin is intact. Nutrition Intervention Revisit per MD consult or patient Sign Off request: Additional Comments S/O for stable weight and good intact
[2020-11-27] MEDS: ASPIRIN 81 MG TAB CHEW PO SCH (10:37)
[2020-11-27] MEDS: LISINOPRIL 20 MG TAB PO SCH (10:37)
[2020-11-27] MEDS: carvediloL 12.5 MG TAB PO SCH ×2 (10:37→21:41)
[2020-11-27] MEDS: SPIRONOLACTONE 25 MG TAB PO SCH (10:37)
[2020-11-27] MEDS: FUROSEMIDE 40 MG/4 ML INJ IV SCH (10:38)
[2020-11-27] MEDS: FOLIC ACID 1 MG TAB PO SCH (10:38)
[2020-11-27] MEDS: HEPARIN 5,000 UNIT/1 ML VIAL SUB-Q SCH ×2 (10:38→21:42)
[2020-11-27] MEDS: MAGNESIUM OXIDE 400 MG TAB PO SCH (10:38)
[2020-11-27] MEDS: FAMOTIDINE 20 MG TAB PO SCH ×2 (10:38→21:41)
[2020-11-27] MEDS: cefTRIAXone/NS 2 GM/100 ML 2 GM/100 ML BAG IV SCH (14:06)
--- NOTE | 2020-11-27 18:06 | Progress Note ---
Assessment and Plan Plan for [facility] on Sunday AM. NPO after midnight Sunday. Continue daily IV Lasix with strict I/Os. Closely monitor renal indices and electrolytes. K repletion underway per Primary. F/u BMP in AM. Continue other present cardiac mgmt. Pt seen in conjunction with Dr. Lopez, who agrees with the assessment and plan of care. - Patient Problems (1) Acute on chronic HFrEF (heart failure with reduced ejection fraction) Current Visit: Yes Status: Acute (2) Cardiomyopathy Current Visit: Yes Status: Chronic Plan to address problem: EF 20-25% (3) Abnormal stress test Current Visit: Yes Status: Acute (4) Elevated troponin Current Visit: Yes Status: Acute Plan to address problem: Minimal trop elevation in the setting of acutely decompensated HF -Pt denies chest pain -No acute ischemic changes on ECG (5) Hypokalemia Current Visit: Yes Status: Acute (6) Cellulitis of lower extremity Current Visit: Yes Status: Acute (7) Hypertension Current Visit: Yes Status: Chronic Qualifiers: Hypertension type: essential hypertension Qualified Code(s): I10 - Essential (primary) hypertension (8) COPD (chronic obstructive pulmonary disease) Current Visit: Yes Status: Chronic (9) Obesity Current Visit: Yes Status: Chronic Qualifiers: Obesity type: due to excess calories Subjective Date of service: 11/27/20 Principal diagnosis: A/C HFrEF, CMP (EF 20-25%) Interval history: Denies SOB. Not orthopneic upon exam. No additional cardiac complaints. Tele reviewed - SR 80s, no events. Objective Last Vital Signs Temp 98.3 F 11/27/20 16:23 Pulse 92 H 11/27/20 16:23 Resp 18 11/27/20 16:23 BP 125/93 11/27/20 16:23 Pulse Ox 94 11/27/20 16:23 - Physical Examination General: No Apparent Distress HEENT: Positive: EOMI, Normocephaly, Mucus Membranes Moist Neck: Positive: neck supple, trachea midline. Negative: JVD/HJR Cardiac: Positive: Reg Rate and Rhythm, S1/S2 Lungs: Positive: clear to auscultation Neuro: Positive: Grossly Intact Abdomen: Positive: Soft. Negative: Tender Skin: Negative: Rash Musculoskeletal: No Pain Extremities: Present: upper extr. pulses, lower extr. pulses, +1 Edema - Labs and Meds Comprehensive Metabolic Panel 11/27/20 Range/Units 07:15 Sodium 142 (137-145) mmol/L Potassium 3.1 L (3.6-5.0) mmol/L Chloride 98.9 (98-107) mmol/L Carbon Dioxide 36 H (22-30) mmol/L BUN 18 (9-20) mg/dL Creatinine 1.0 (0.8-1.3) mg/dL Glucose 123 H (75-100) mg/dL Calcium 7.9 L (8.4-10.2) mg/dL - Imaging and Cardiology EKG: report reviewed, image reviewed Pharmacologic stress test: report reviewed (11/26/2020 - moderate anterior & anterior apical reversible defect suggestive of ischemia, EF 20%) Echo: report reviewed (11/21/2020: EF 20-25%; severe LV diastolic dysfxn; mild pulm HTN, mod TR; trace pericardial effusion) Cardiac cath: pending - Telemetry EKG Rhythm: Sinus Rhythm - EKG Sinus rhythms and dysrhythmias: sinus rhythm Repolarization changes or abnormalities: nonspecific abnormality, ST segment, and/or T wave
[2020-11-28 06:16] LABS: BUN/Creatinine Ratio 19; Blood Urea Nitrogen 17 mg/dL (9-20); Calcium 7.9 mg/dL (8.4-10.2); Hemolysis Index 3
--- NOTE | 2020-11-28 07:46 | Progress Note ---
Assessment and Plan Assessment and plan: 40 Year old Male presents with bilateral lower extremity pain and swelling of both the legs. Patient has been compliant with Lasix but the swelling is not going down. Patient also has some shortness of breath since yesterday. Orthopnea present. No chest pain or pressure. Swelling of the legs has been going for a long time. Patient is being treated for hypertension and congestive heart failure and COPD. No exacerbating or relieving factors. Patient on Lasix. The patient is a 40-year-old male present with a chief complaint of bilateral lower extremity pain. Patient states he came to the emergency department because he had pain in bilateral lower extremities secondary to the edema. Patient states he has been compliant with his Lasix but is not removing the fluid. Patient admits to some shortness of breath which occurred last night but adamantly denies ever having any type of chest pain pressure tightness or discomfort. Patient denies history of fever or cough. Patient gives his lower extremity pain a score of 10/10 --Acute on chronic systolic CHF EF 20 to 25% Antifailure medications IV diuretics, beta-blockers, JUSTO inhibitors Input output monitoring, low-sodium diet, free water restriction Cardiology following, recommend ischemia work-up Stress test; reversible ischemia moderate size anterior and anterior apical areas globally dilated LV , ejection fraction 20% Cardiology recommend left heart catheterization on 11/29/2020 Continue current cardiac medications --Chronic leg swelling Venous Doppler; bilateral negative for DVT Arterial Doppler; bilateral no stenosis Patient Will follow up with vascular surgery Upon discharge for further evaluation and management. --Right lower extremity cellulitis On ceftriaxone, follow cultures Keep RLE elevated. Empiric antibiotics --HTN; moderate control Continue current antihypertensives And as needed hydralazine --Severe protein calorie malnutrition/hypoproteinemia; Nutritional supplement, nutrition consult, supportive care --Hypokalemia --Hypomagnesemia --obesity; BMI 32.7; patient needs weight reduction when medically stable --DVT prophylaxis - heparin Closely monitor the patient and adjust management as needed Plan of care reviewed with the patient and and his nurse Cardiology evaluation recommendations noted and appreciated 11/22. Patient seen and examined at bedside this morning. Complains of right lower extremity pain. On diuretics for congestive heart failure. Started him on antibiotics for RLE cellulitis. Vascular studies both venous and arterial were essentially normal. Vascular surgery evaluation appreciated. 11/23. Continues to diurese well. I/O reviewed. Echocardiogram shows LVEF 20 - 25%. Cardiology following. 11/24. Doing well. K is low - will replete. On diuretics. His right leg pain is better. Remains on ceftriaxone. 11/25. He complains his leg pain is still there. He is on antibiotics. On diuretics for heart failure 11/26. Abnormal stress test with reversible ischemia, cardiology recommended left heart catheterization on 11/29/2020 Continue current cardiac medications 11/27: Replace K. Patient for cardiac cath on 11/29/20, Continue abx. 11/28: Still with persistent hypokalemia will replace magnesium and potassium. We will repeat potassium today. To ensure correction in preparation for cardiac cath History Interval history: Patient seen and examined, reports still with discomfort on his lower ext edema and chronic infection. Although states he is improving some Hospitalist Physical - Physical exam Narrative exam: General appearance: Present: no acute distress, well-nourished, obese - EENT Eyes: Present: PERRL, EOM intact - Neck Neck: Present: supple, normal ROM - Respiratory Respiratory effort: normal Respiratory: bilateral: diminished, negative: rales, rhonchi, wheezing - Cardiovascular Rhythm: regular Heart Sounds: Present: S1 & S2 - Extremities Extremities: no ischemia Extremity abnormal: edema plus 2 bilateral lower ext - Abdominal General gastrointestinal: soft, non-tender, non-distended, normal bowel sounds - Integumentary Integumentary: Present: Chronic changes bilateral lower extremity worse on the right with some skin excoriation - Psychiatric Psychiatric: appropriate mood/affect, cooperative - Neurologic Neurologic: CNII-XII intact, moves all extremities - Constitutional Vitals: Temp Pulse Resp BP Pulse Ox 98.3 F 88 20 130/86 94 11/28/20 04:53 11/28/20 04:53 11/28/20 04:53 11/28/20 04:53 11/28/20 04:53 General appearance: Present: no acute distress, well-nourished, obese HEART Score - HEART Score Age: < 45 Troponin: Troponin T 0.065 ng/mL (0.00-0.029) H 11/21/20 10:21 Troponin: < normal limit - Critical Actions Critical Actions: 0-3 pts:0.9-1.7%risk of adverse cardiac event.Candidate for di nory Results - Labs CBC & Chem 7: 11/26/20 05:10 11/28/20 05:21 Labs: Laboratory Last Values WBC 9.5 K/mm3 (4.5-11.0) 11/26/20 05:10 RBC 3.43 M/mm3 (3.65-5.03) L 11/26/20 05:10 Hgb 11.0 gm/dl (11.8-15.2) L 11/26/20 05:10 Hct 32.2 % (35.5-45.6) L 11/26/20 05:10 MCV 94 fl (84-94) 11/26/20 05:10 MCH 32 pg (28-32) 11/26/20 05:10 MCHC 34 % (32-34) 11/26/20 05:10 RDW 16.8 % (13.2-15.2) H 11/26/20 05:10 Plt Count 180 K/mm3 (140-440) 11/26/20 05:10 Lymph % (Auto) 2.9 % (13.4-35.0) L 11/26/20 05:10 [place] % (Auto) 8.8 % (0.0-7.3) H 11/26/20 05:10 Eos % (Auto) 0.1 % (0.0-4.3) 11/26/20 05:10 Baso % (Auto) 1.2 % (0.0-1.8) 11/26/20 05:10 Lymph # (Auto) 0.3 K/mm3 (1.2-5.4) L 11/26/20 05:10 [place] # (Auto) 0.8 K/mm3 (0.0-0.8) 11/26/20 05:10 Eos # (Auto) 0.0 K/mm3 (0.0-0.4) 11/26/20 05:10 Baso # (Auto) 0.1 K/mm3 (0.0-0.1) 11/26/20 05:10 Add Manual Diff Complete 11/23/20 05:53 Total Counted 100 11/23/20 05:53 Seg Neutrophils % 86.0 % (40.0-70.0) H 11/26/20 05:10 Seg Neuts % (Manual) 92.0 % (40.0-70.0) H 11/23/20 05:53 Band Neutrophils % 3.0 % 11/23/20 05:53 Lymphocytes % (Manual) 1.0 % (13.4-35.0) L 11/22/20 05:15 Monocytes % (Manual) 5.0 % (0.0-7.3) 11/23/20 05:53 Nucleated RBC % Not Reportable 11/23/20 05:53 Seg Neutrophils # 8.2 K/mm3 (1.8-7.7) H 11/26/20 05:10 Seg Neutrophils # Man 12.2 K/mm3 (1.8-7.7) H 11/23/20 05:53 Band Neutrophils # 0.4 K/mm3 11/23/20 05:53 Lymphocytes # (Manual) 0.0 K/mm3 (1.2-5.4) L 11/23/20 05:53 Abs React Lymphs (Man) 0.0 K/mm3 11/23/20 05:53 Monocytes # (Manual) 0.7 K/mm3 (0.0-0.8) 11/23/20 05:53 Eosinophils # (Manual) 0.0 K/mm3 (0.0-0.4) 11/23/20 05:53 Basophils # (Manual) 0.0 K/mm3 (0.0-0.1) 11/23/20 05:53 Metamyelocytes # 0.0 K/mm3 11/23/20 05:53 Myelocytes # 0.0 K/mm3 11/23/20 05:53 Promyelocytes # 0.0 K/mm3 11/23/20 05:53 Blast Cells # 0.0 K/mm3 11/23/20 05:53 WBC Morphology Not Reportable 11/23/20 05:53 Hypersegmented Neuts Not Reportable 11/23/20 05:53 Hyposegmented Neuts Not Reportable 11/23/20 05:53 Hypogranular Neuts Not Reportable 11/23/20 05:53 Smudge Cells Not Reportable 11/23/20 05:53 Toxic Granulation Not Reportable 11/23/20 05:53 Toxic Vacuolation Not Reportable 11/23/20 05:53 Dohle Bodies Not Reportable 11/23/20 05:53 Pelger-Huet Anomaly Not Reportable 11/23/20 05:53 Nadya Rods Not Reportable 11/23/20 05:53 Platelet Estimate Consistent w auto 11/23/20 05:53 Clumped Platelets Not Reportable 11/23/20 05:53 Plt Clumps, EDTA Not Reportable 11/23/20 05:53 Large Platelets Rare 11/23/20 05:53 Giant Platelets Not Reportable 11/23/20 05:53 Platelet Satelliting Not Reportable 11/23/20 05:53 Plt Morphology Comment Not Reportable 11/23/20 05:53 RBC Morphology Not Reportable 11/23/20 05:53 Dimorphic RBCs Not Reportable 11/23/20 05:53 Polychromasia Not Reportable 11/23/20 05:53 Hypochromasia Not Reportable 11/23/20 05:53 Poikilocytosis Not Reportable 11/23/20 05:53 Anisocytosis 1+ 11/23/20 05:53 Microcytosis Not Reportable 11/23/20 05:53 Macrocytosis Not Reportable 11/23/20 05:53 Spherocytes Not Reportable 11/23/20 05:53 Pappenheimer Bodies Not Reportable 11/23/20 05:53 Sickle Cells Not Reportable 11/23/20 05:53 Target Cells Not Reportable 11/23/20 05:53 Tear Drop Cells Not Reportable 11/23/20 05:53 Ovalocytes Not Reportable 11/23/20 05:53 Helmet Cells Not Reportable 11/23/20 05:53 [place] Bodies Not Reportable 11/23/20 05:53 [place] Rings Not Reportable 11/23/20 05:53 Yan Cells Not Reportable 11/23/20 05:53 Bite Cells Not Reportable 11/23/20 05:53 Crenated Cell Not Reportable 11/23/20 05:53 Elliptocytes Not Reportable 11/23/20 05:53 Acanthocytes (Spur) Not Reportable 11/23/20 05:53 Rouleaux Not Reportable 11/23/20 05:53 Hemoglobin C Crystals Not Reportable 11/23/20 05:53 Schistocytes Not Reportable 11/23/20 05:53 Malaria parasites Not Reportable 11/23/20 05:53 Louie Bodies Not Reportable 11/23/20 05:53 Hem Pathologist Commnt No 11/23/20 05:53 Sodium 138 mmol/L (137-145) 11/28/20 05:21 Potassium 3.1 mmol/L (3.6-5.0) L 11/28/20 05:21 Chloride 95.4 mmol/L (98-107) L 11/28/20 05:21 Carbon Dioxide 34 mmol/L (22-30) H 11/28/20 05:21 Anion Gap 12 mmol/L 11/28/20 05:21 BUN 17 mg/dL (9-20) 11/28/20 05:21 Creatinine 0.9 mg/dL (0.8-1.3) 11/28/20 05:21 Estimated GFR > 60 ml/min 11/28/20 05:21 BUN/Creatinine Ratio 19 % 11/28/20 05:21 Glucose 124 mg/dL (75-100) H 11/28/20 05:21 POC Glucose 196 mg/dL (70-105) H 11/22/20 10:13 Hemoglobin A1c 6.8 % (4-6) H 11/22/20 05:15 Calcium 7.9 mg/dL (8.4-10.2) L 11/28/20 05:21 Magnesium 1.80 mg/dL (1.7-2.3) 11/26/20 05:10 Total Bilirubin 0.30 mg/dL (0.1-1.2) 11/26/20 05:10 AST 21 units/L (5-40) 11/26/20 05:10 ALT 24 units/L (7-56) 11/26/20 05:10 Alkaline Phosphatase 99 units/L (35-129) 11/26/20 05:10 Troponin T 0.065 ng/mL (0.00-0.029) H 11/21/20 10:21 NT-Pro-B Natriuret Pep 79636 pg/mL (0-450) H 11/21/20 08:06 Total Protein 5.4 g/dL (6.3-8.2) L 11/26/20 05:10 Albumin 2.4 g/dL (3.9-5) L 11/26/20 05:10 Albumin/Globulin Ratio 0.8 % 11/26/20 05:10 Triglycerides 145 mg/dL (2-149) 11/21/20 10:21 Cholesterol 111 mg/dL (50-199) 11/21/20 10:21 LDL Cholesterol Direct 53 mg/dL (50-130) 11/21/20 10:21 HDL Cholesterol 27 mg/dL (40-59) L 11/21/20 10:21 Cholesterol/HDL Ratio 4.11 % 11/21/20 10:21 Procalcitonin 0.84 ng/mL (<0.15) 11/26/20 05:10 Hyatt/IV: Voiding Method Urinal Active Medications - Current Medications Current Medications: Generic Name Dose Route Start Last Admin Trade Name Freq PRN Reason Stop Dose Admin Acetaminophen 650 mg 11/21/20 22:55 Acetaminophen 325 Mg Tab PO Q4H PRN Pain MILD(1-3)/Fever >100.5/YU Aspirin 81 mg 11/22/20 10:00 11/27/20 10:37 Aspirin 81 Mg Tab Chew PO 81 mg QDAY AMRITA Administration Carvedilol 12.5 mg 11/21/20 23:00 11/27/20 21:41 Carvedilol 12.5 Mg Tab PO 12.5 mg BID AMRITA Administration Famotidine 20 mg 11/22/20 10:00 11/27/20 21:41 Famotidine 20 Mg Tab PO 20 mg BID AMRITA Administration Folic Acid 1 mg 11/22/20 10:00 11/27/20 10:38 Folic Acid 1 Mg Tab PO 1 mg QDAY AMRITA Administration Furosemide 40 mg 11/25/20 10:00 11/27/20 10:38 Furosemide 40 Mg/4 Ml Inj IV 40 mg QDAY AMRITA Administration Heparin Sodium (Porcine) 5,000 unit 11/21/20 23:00 11/27/20 21:42 Heparin 5,000 Unit/1 Ml Vial SUB-Q 5,000 unit Q12HR AMRITA Administration Hydromorphone HCl 0.5 mg 11/21/20 14:00 11/21/20 22:09 Hydromorphone 1 Mg/1 Ml Inj IV 0.5 mg Q3H PRN Administration Pain , Severe (7-10) Ceftriaxone Sodium 2 gm in 100 mls @ 200 mls/hr 11/22/20 14:00 11/27/20 14:06 Rocephin/Ns 2 Gm/100 Ml IV 11/29/20 14:59 200 mls/hr Q24H AMRITA Administration Protocol Potassium Chloride 10 meq in 100 mls @ 100 mls/hr 11/28/20 08:00 Kcl 10meq/100ml IV 11/28/20 11:59 Q1H AMRITA Magnesium Sulfate 1 gm/ Sodium 52 mls @ 52 mls/hr 11/28/20 07:44 Chloride IV 11/28/20 08:43 ONCE ONE Lisinopril 20 mg 11/23/20 10:00 11/27/20 10:37 Lisinopril 20 Mg Tab PO 20 mg QDAY AMRITA Administration Magnesium Oxide 400 mg 11/25/20 10:00 11/27/20 10:38 Magnesium Oxide 400 Mg Tab PO 400 mg QDAY AMRITA Administration Methocarbamol 750 mg 11/21/20 22:54 Methocarbamol 750 Mg Tab PO Q8HR PRN muscle spasm Metoclopramide HCl 10 mg 11/21/20 22:55 Metoclopramide 10 Mg/2 Ml Inj IV Q6H PRN Nausea And Vomiting Morphine Sulfate 2 mg 11/22/20 14:00 11/22/20 15:53 Morphine 2 Mg/1 Ml Inj IV 2 mg Q4H PRN Administration Pain, Moderate (4-6) Ondansetron HCl 4 mg 11/21/20 22:55 Ondansetron 4 Mg/2 Ml Inj IV Q3H PRN Nausea And Vomiting Oxycodone/Acetaminophen 1 tab 11/21/20 22:55 11/27/20 21:41 Oxycodone /Acetaminophen 5-325mg Tab PO 1 tab Q6H PRN Administration Pain, Moderate (4-6) Sodium Chloride 10 ml 11/22/20 10:00 11/27/20 21:42 Sodium Chloride 0.9% 10 Ml Flush Syringe IV 10 ml BID AMRITA Administration Sodium Chloride 10 ml 11/21/20 22:55 Sodium Chloride 0.9% 10 Ml Flush Syringe IV PRN PRN LINE FLUSH Spironolactone 25 mg 11/22/20 10:00 11/27/20 10:37 Spironolactone 25 Mg Tab PO 25 mg QDAY AMRITA Administration Nutrition/Malnutrition Assess - Dietary Evaluation Nutrition/Malnutrition Findings: Nutrition Notes Start: 11/21/20 14:27 Freq: Status: Active Protocol: Document 03/28/21 14:28 CW (Rec: 11/21/20 14:31 CW [id number]) Nutrition Notes Need for Assessment 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 Pt weight is relatively stable based on last admission weight x6 months ago. Per chart, PO intake is excelent. Skin is intact. Nutrition Intervention Revisit per MD consult or patient Sign Off request: Additional Comments S/O for stable weight and good intact
[2020-11-28] MEDS ORDERED: MAGNESIUM SULFATE 1 GM in SODIUM CHLORIDE 0.9% 50 ML IV ONE (09:00)
[2020-11-28] MEDS ORDERED: POTASSIUM CHLORIDE 10 MEQ 10 MEQ/100 ML BAG IV SCH (09:00)
[2020-11-28] MEDS: HEPARIN 5,000 UNIT/1 ML VIAL SUB-Q SCH ×2 (09:04→22:07)
[2020-11-28] MEDS: FUROSEMIDE 40 MG/4 ML INJ IV SCH (09:04)
[2020-11-28] MEDS: SPIRONOLACTONE 25 MG TAB PO SCH (09:04)
[2020-11-28] MEDS: ASPIRIN 81 MG TAB CHEW PO SCH (09:04)
[2020-11-28] MEDS: carvediloL 12.5 MG TAB PO SCH ×2 (09:05→22:06)
[2020-11-28] MEDS: FAMOTIDINE 20 MG TAB PO SCH ×2 (09:05→22:06)
[2020-11-28] MEDS: LISINOPRIL 20 MG TAB PO SCH (09:05)
[2020-11-28] MEDS: FOLIC ACID 1 MG TAB PO SCH (09:05)
[2020-11-28] MEDS: MAGNESIUM OXIDE 400 MG TAB PO SCH (09:12)
[2020-11-28] MEDS ORDERED: POTASSIUM CHLORIDE ER 20 MEQ TAB PO ONE ×2 (09:30→11:30)
--- NOTE | 2020-11-28 10:50 | Progress Note ---
Assessment and Plan Plan for [facility] in AM. NPO after midnight. Continue daily IV Lasix for now. Closely monitor renal indices and electrolytes. K repletion underway per Primary. Mg pending. F/u BMP & Mg prior to cardiac catheterization. Continue other present cardiac mgmt. Pt seen in conjunction with Dr. Lopez, who agrees with the assessment and plan of care. - Patient Problems (1) Acute on chronic HFrEF (heart failure with reduced ejection fraction) Current Visit: Yes Status: Acute (2) Cardiomyopathy Current Visit: Yes Status: Chronic Plan to address problem: EF 20-25% (3) Abnormal stress test Current Visit: Yes Status: Acute (4) Elevated troponin Current Visit: Yes Status: Acute Plan to address problem: Minimal trop elevation in the setting of acutely decompensated HF -Pt denies chest pain -No acute ischemic changes on ECG (5) Hypokalemia Current Visit: Yes Status: Acute (6) Cellulitis of lower extremity Current Visit: Yes Status: Acute (7) Hypertension Current Visit: Yes Status: Chronic Qualifiers: Hypertension type: essential hypertension Qualified Code(s): I10 - Essential (primary) hypertension (8) COPD (chronic obstructive pulmonary disease) Current Visit: Yes Status: Chronic (9) Obesity Current Visit: Yes Status: Chronic Qualifiers: Obesity type: due to excess calories Subjective Date of service: 11/28/20 Principal diagnosis: A/C HFrEF, CMP (EF 20-25%) Interval history: Resting comfortably in bed. Denies any cardiac complaints. Not orthopneic upon exam. Tele reviewed - SR 90s this AM (intermittently up to 110s w/pain from IV insertion), no events overnight. Objective Last Vital Signs Temp 98.4 F 11/28/20 07:27 Pulse 98 H 11/28/20 10:00 Resp 18 11/28/20 07:27 BP 135/105 11/28/20 09:05 Pulse Ox 93 11/28/20 07:27 - Physical Examination General: No Apparent Distress HEENT: Positive: EOMI, Normocephaly, Mucus Membranes Moist Neck: Positive: neck supple, trachea midline. Negative: JVD/HJR Cardiac: Positive: Reg Rate and Rhythm, S1/S2 Lungs: Positive: Decreased Breath Sounds Neuro: Positive: Grossly Intact Abdomen: Positive: Soft. Negative: Tender Skin: Negative: Rash Musculoskeletal: No Pain Extremities: Present: upper extr. pulses, lower extr. pulses, edema (trace BLE) - Labs and Meds Comprehensive Metabolic Panel 11/28/20 Range/Units 05:21 Sodium 138 (137-145) mmol/L Potassium 3.1 L (3.6-5.0) mmol/L Chloride 95.4 L (98-107) mmol/L Carbon Dioxide 34 H (22-30) mmol/L BUN 17 (9-20) mg/dL Creatinine 0.9 (0.8-1.3) mg/dL Glucose 124 H (75-100) mg/dL Calcium 7.9 L (8.4-10.2) mg/dL - Imaging and Cardiology EKG: report reviewed, image reviewed Echo: report reviewed (11/21/2020: EF 20-25%; severe LV diastolic dysfxn; mild pulm HTN, mod TR; trace pericardial effusion) Cardiac cath: pending - Telemetry EKG Rhythm: Sinus Rhythm - EKG Sinus rhythms and dysrhythmias: sinus rhythm Repolarization changes or abnormalities: nonspecific abnormality, ST segment, and/or T wave
[2020-11-28] MEDS: cefTRIAXone/NS 2 GM/100 ML 2 GM/100 ML BAG IV SCH (13:41)
[2020-11-28] MEDS: oxyCODONE /ACETAMINOPHEN 5-325MG TAB PO PRN (16:40)
[2020-11-29 05:52] LABS: Hematocrit 31.6 % (35.5-45.6); Hemoglobin 10.5 gm/dl (11.8-15.2); Mean Corpuscular HGB Conc 33 % (32-34); Mean Corpuscular Volume 95 fl (84-94); Platelet Count 203 K/mm3 (140-440); Red Blood Count 3.32 M/mm3 (3.65-5.03); Red Cell Distribution Width 16.8 % (13.2-15.2)
[2020-11-29 05:53] LABS: Lymphocytes % (Auto) 3.8 % (13.4-35.0)
[2020-11-29 05:54] LABS: Basophils % (Auto) 0.3 % (0.0-1.8); Eosinophils % (Auto) 0.1 % (0.0-4.3); Lymphocytes # (Auto) 0.3 K/mm3 (1.2-5.4); Monocytes # (Auto) 0.7 K/mm3 (0.0-0.8)
[2020-11-29 06:00] LABS: INR 0.99 (0.87-1.13)
[2020-11-29 06:03] LABS: BUN/Creatinine Ratio 19; Blood Urea Nitrogen 19 mg/dL (9-20); Calcium 7.8 mg/dL (8.4-10.2); Hemolysis Index 14
--- NOTE | 2020-11-29 10:21 | Treadmill Report ---
[facility] Test Date: 2020-11-26 Test Time: 12:01:37 Pat Name: MYRIAM MELARA Department: Room: A486 1 Gender: M Loc[employer] Ten[employer]: [place] : 1980 Requested By: REE MCCAIN Order Number: [id number] Reading MD: Bobby Reece Interpretive Statements Electronically Signed On 11-29-2020 10:21:30 EDT by Bobby Reece
--- NOTE | 2020-11-29 10:31 | Progress Note ---
Assessment and Plan Assessment and plan: 40 Year old Male presents with bilateral lower extremity pain and swelling of both the legs. Patient has been compliant with Lasix but the swelling is not going down. Patient also has some shortness of breath since yesterday. Orthopnea present. No chest pain or pressure. Swelling of the legs has been going for a long time. Patient is being treated for hypertension and congestive heart failure and COPD. No exacerbating or relieving factors. Patient on Lasix. The patient is a 40-year-old male present with a chief complaint of bilateral lower extremity pain. Patient states he came to the emergency department because he had pain in bilateral lower extremities secondary to the edema. Patient states he has been compliant with his Lasix but is not removing the fluid. Patient admits to some shortness of breath which occurred last night but adamantly denies ever having any type of chest pain pressure tightness or discomfort. Patient denies history of fever or cough. Patient gives his lower extremity pain a score of 10/10 --Acute on chronic systolic CHF EF 20 to 25% Antifailure medications IV diuretics, beta-blockers, JUSTO inhibitors Input output monitoring, low-sodium diet, free water restriction Cardiology following, recommend ischemia work-up Stress test; reversible ischemia moderate size anterior and anterior apical areas globally dilated LV , ejection fraction 20% Cardiology recommend left heart catheterization on 11/29/2020 Continue current cardiac medications --Chronic leg swelling Venous Doppler; bilateral negative for DVT Arterial Doppler; bilateral no stenosis Patient Will follow up with vascular surgery Upon discharge for further evaluation and management. --Right lower extremity cellulitis On ceftriaxone, follow cultures Keep RLE elevated. Empiric antibiotics --HTN; moderate control Continue current antihypertensives And as needed hydralazine --Severe protein calorie malnutrition/hypoproteinemia; Nutritional supplement, nutrition consult, supportive care --Hypokalemia --Hypomagnesemia -- Non Compliant --obesity; BMI 32.7; patient needs weight reduction when medically stable --DVT prophylaxis - heparin Closely monitor the patient and adjust management as needed Plan of care reviewed with the patient and and his nurse Cardiology evaluation recommendations noted and appreciated 11/22. Patient seen and examined at bedside this morning. Complains of right lower extremity pain. On diuretics for congestive heart failure. Started him on antibiotics for RLE cellulitis. Vascular studies both venous and arterial were essentially normal. Vascular surgery evaluation appreciated. 11/23. Continues to diurese well. I/O reviewed. Echocardiogram shows LVEF 20 - 25%. Cardiology following. 11/24. Doing well. K is low - will replete. On diuretics. His right leg pain is better. Remains on ceftriaxone. 11/25. He complains his leg pain is still there. He is on antibiotics. On diuretics for heart failure 11/26. Abnormal stress test with reversible ischemia, cardiology recommended left heart catheterization on 11/29/2020 Continue current cardiac medications 11/27: Replace K. Patient for cardiac cath on 11/29/20, Continue abx. 11/28: Still with persistent hypokalemia will replace magnesium and potassium. We will repeat potassium today. To ensure correction in preparation for cardiac cath 11/29: Patient decided not to follow recommendations and EAT this morning, awaiting cardiology re-evaluation. I am not sure how he got food since he was NPO. Counselling provided to the patient. Continue current management. Patient is non- COMPLIANT. History Interval history: Patient seen and examined, unfortunately reports that the way he was feeling this morning that he could not wait for the cab so he ate. I am unsure how he got the food since he was n.p.o. after midnight Hospitalist Physical - Physical exam Narrative exam: General appearance: Present: no acute distress, well-nourished, obese - EENT Eyes: Present: PERRL, EOM intact - Neck Neck: Present: supple, normal ROM - Respiratory Respiratory effort: normal Respiratory: bilateral: diminished, negative: rales, rhonchi, wheezing - Cardiovascular Rhythm: regular Heart Sounds: Present: S1 & S2 - Extremities Extremities: no ischemia Extremity abnormal: edema plus 2 bilateral lower ext - Abdominal General gastrointestinal: soft, non-tender, non-distended, normal bowel sounds - Integumentary Integumentary: Present: Chronic changes bilateral lower extremity worse on the right with some skin excoriation - Psychiatric Psychiatric: appropriate mood/affect, cooperative - Neurologic Neurologic: CNII-XII intact, moves all extremities - Constitutional Vitals: Temp Pulse Resp BP Pulse Ox 98.4 F 81 17 133/97 98 11/29/20 07:43 11/29/20 07:43 11/29/20 07:43 11/29/20 07:43 11/29/20 07:43 General appearance: Present: no acute distress, well-nourished, obese HEART Score - HEART Score Age: < 45 Troponin: Troponin T 0.065 ng/mL (0.00-0.029) H 11/21/20 10:21 Troponin: < normal limit - Critical Actions Critical Actions: 0-3 pts:0.9-1.7%risk of adverse cardiac event.Candidate for discharge Results - Labs CBC & Chem 7: 11/29/20 05:16 11/29/20 05:16 Labs: Laboratory Last Values WBC 8.7 K/mm3 (4.5-11.0) 11/29/20 05:16 RBC 3.32 M/mm3 (3.65-5.03) L 11/29/20 05:16 Hgb 10.5 gm/dl (11.8-15.2) L 11/29/20 05:16 Hct 31.6 % (35.5-45.6) L 11/29/20 05:16 MCV 95 fl (84-94) H 11/29/20 05:16 MCH 32 pg (28-32) 11/29/20 05:16 MCHC 33 % (32-34) 11/29/20 05:16 RDW 16.8 % (13.2-15.2) H 11/29/20 05:16 Plt Count 203 K/mm3 (140-440) 11/29/20 05:16 Lymph % (Auto) 3.8 % (13.4-35.0) L 11/29/20 05:16 [place] % (Auto) 8.0 % (0.0-7.3) H 11/29/20 05:16 Eos % (Auto) 0.1 % (0.0-4.3) 11/29/20 05:16 Baso % (Auto) 0.3 % (0.0-1.8) 11/29/20 05:16 Lymph # (Auto) 0.3 K/mm3 (1.2-5.4) L 11/29/20 05:16 [place] # (Auto) 0.7 K/mm3 (0.0-0.8) 11/29/20 05:16 Eos # (Auto) 0.0 K/mm3 (0.0-0.4) 11/29/20 05:16 Baso # (Auto) 0.0 K/mm3 (0.0-0.1) 11/29/20 05:16 Add Manual Diff Complete 11/23/20 05:53 Total Counted 100 11/23/20 05:53 Seg Neutrophils % 87.8 % (40.0-70.0) H 11/29/20 05:16 Seg Neuts % (Manual) 92.0 % (40.0-70.0) H 11/23/20 05:53 Band Neutrophils % 3.0 % 11/23/20 05:53 Lymphocytes % (Manual) 1.0 % (13.4-35.0) L 11/22/20 05:15 Monocytes % (Manual) 5.0 % (0.0-7.3) 11/23/20 05:53 Nucleated RBC % Not Reportable 11/23/20 05:53 Seg Neutrophils # 7.6 K/mm3 (1.8-7.7) 11/29/20 05:16 Seg Neutrophils # Man 12.2 K/mm3 (1.8-7.7) H 11/23/20 05:53 Band Neutrophils # 0.4 K/mm3 11/23/20 05:53 Lymphocytes # (Manual) 0.0 K/mm3 (1.2-5.4) L 11/23/20 05:53 Abs React Lymphs (Man) 0.0 K/mm3 11/23/20 05:53 Monocytes # (Manual) 0.7 K/mm3 (0.0-0.8) 11/23/20 05:53 Eosinophils # (Manual) 0.0 K/mm3 (0.0-0.4) 11/23/20 05:53 Basophils # (Manual) 0.0 K/mm3 (0.0-0.1) 11/23/20 05:53 Metamyelocytes # 0.0 K/mm3 11/23/20 05:53 Myelocytes # 0.0 K/mm3 11/23/20 05:53 Promyelocytes # 0.0 K/mm3 11/23/20 05:53 Blast Cells # 0.0 K/mm3 11/23/20 05:53 WBC Morphology Not Reportable 11/23/20 05:53 Hypersegmented Neuts Not Reportable 11/23/20 05:53 Hyposegmented Neuts Not Reportable 11/23/20 05:53 Hypogranular Neuts Not Reportable 11/23/20 05:53 Smudge Cells Not Reportable 11/23/20 05:53 Toxic Granulation Not Reportable 11/23/20 05:53 Toxic Vacuolation Not Reportable 11/23/20 05:53 Dohle Bodies Not Reportable 11/23/20 05:53 Pelger-Huet Anomaly Not Reportable 11/23/20 05:53 Nadya Rods Not Reportable 11/23/20 05:53 Platelet Estimate Consistent w auto 11/23/20 05:53 Clumped Platelets Not Reportable 11/23/20 05:53 Plt Clumps, EDTA Not Reportable 11/23/20 05:53 Large Platelets Rare 11/23/20 05:53 Giant Platelets Not Reportable 11/23/20 05:53 Platelet Satelliting Not Reportable 11/23/20 05:53 Plt Morphology Comment Not Reportable 11/23/20 05:53 RBC Morphology Not Reportable 11/23/20 05:53 Dimorphic RBCs Not Reportable 11/23/20 05:53 Polychromasia Not Reportable 11/23/20 05:53 Hypochromasia Not Reportable 11/23/20 05:53 Poikilocytosis Not Reportable 11/23/20 05:53 Anisocytosis 1+ 11/23/20 05:53 Microcytosis Not Reportable 11/23/20 05:53 Macrocytosis Not Reportable 11/23/20 05:53 Spherocytes Not Reportable 11/23/20 05:53 Pappenheimer Bodies Not Reportable 11/23/20 05:53 Sickle Cells Not Reportable 11/23/20 05:53 Target Cells Not Reportable 11/23/20 05:53 Tear Drop Cells Not Reportable 11/23/20 05:53 Ovalocytes Not Reportable 11/23/20 05:53 Helmet Cells Not Reportable 11/23/20 05:53 Boyd-Baroda Bodies Not Reportable 11/23/20 05:53 Paisley Rings Not Reportable 11/23/20 05:53 Yan Cells Not Reportable 11/23/20 05:53 Bite Cells Not Reportable 11/23/20 05:53 Crenated Cell Not Reportable 11/23/20 05:53 Elliptocytes Not Reportable 11/23/20 05:53 Acanthocytes (Spur) Not Reportable 11/23/20 05:53 Rouleaux Not Reportable 11/23/20 05:53 Hemoglobin C Crystals Not Reportable 11/23/20 05:53 Schistocytes Not Reportable 11/23/20 05:53 Malaria parasites Not Reportable 11/23/20 05:53 Louie Bodies Not Reportable 11/23/20 05:53 Hem Pathologist Commnt No 11/23/20 05:53 PT 12.9 Sec. (12.2-14.9) 11/29/20 05:16 INR 0.99 (0.87-1.13) 11/29/20 05:16 Sodium 142 mmol/L (137-145) 11/29/20 05:16 Potassium 3.9 mmol/L (3.6-5.0) 11/29/20 05:16 Chloride 99.2 mmol/L (98-107) 11/29/20 05:16 Carbon Dioxide 34 mmol/L (22-30) H 11/29/20 05:16 Anion Gap 13 mmol/L 11/29/20 05:16 BUN 19 mg/dL (9-20) 11/29/20 05:16 Creatinine 1.0 mg/dL (0.8-1.3) 11/29/20 05:16 Estimated GFR > 60 ml/min 11/29/20 05:16 BUN/Creatinine Ratio 19 % 11/29/20 05:16 Glucose 132 mg/dL (75-100) H 11/29/20 05:16 POC Glucose 196 mg/dL (70-105) H 11/22/20 10:13 Hemoglobin A1c 6.8 % (4-6) H 11/22/20 05:15 Calcium 7.8 mg/dL (8.4-10.2) L 11/29/20 05:16 Magnesium 1.80 mg/dL (1.7-2.3) 11/26/20 05:10 Total Bilirubin 0.30 mg/dL (0.1-1.2) 11/26/20 05:10 AST 21 units/L (5-40) 11/26/20 05:10 ALT 24 units/L (7-56) 11/26/20 05:10 Alkaline Phosphatase 99 units/L (35-129) 11/26/20 05:10 Troponin T 0.065 ng/mL (0.00-0.029) H 11/21/20 10:21 NT-Pro-B Natriuret Pep 59362 pg/mL (0-450) H 11/21/20 08:06 Total Protein 5.4 g/dL (6.3-8.2) L 11/26/20 05:10 Albumin 2.4 g/dL (3.9-5) L 11/26/20 05:10 Albumin/Globulin Ratio 0.8 % 11/26/20 05:10 Triglycerides 145 mg/dL (2-149) 11/21/20 10:21 Cholesterol 111 mg/dL (50-199) 11/21/20 10:21 LDL Cholesterol Direct 53 mg/dL (50-130) 11/21/20 10:21 HDL Cholesterol 27 mg/dL (40-59) L 11/21/20 10:21 Cholesterol/HDL Ratio 4.11 % 11/21/20 10:21 Procalcitonin 0.84 ng/mL (<0.15) 11/26/20 05:10 Hyatt/IV: Voiding Method Urinal Active Medications - Current Medications Current Medications: Generic Name Dose Route Start Last Admin Trade Name Freq PRN Reason Stop Dose Admin Acetaminophen 650 mg 11/21/20 22:55 Acetaminophen 325 Mg Tab PO Q4H PRN Pain MILD(1-3)/Fever >100.5/YU Aspirin 81 mg 11/22/20 10:00 11/28/20 09:04 Aspirin 81 Mg Tab Chew PO 81 mg QDAY AMRITA Administration Carvedilol 12.5 mg 11/21/20 23:00 11/28/20 22:06 Carvedilol 12.5 Mg Tab PO 12.5 mg BID AMRITA Administration Famotidine 20 mg 11/22/20 10:00 11/28/20 22:06 Famotidine 20 Mg Tab PO 20 mg BID AMRITA Administration Folic Acid 1 mg 11/22/20 10:00 11/28/20 09:05 Folic Acid 1 Mg Tab PO 1 mg QDAY AMRITA Administration Furosemide 40 mg 11/25/20 10:00 11/28/20 09:04 Furosemide 40 Mg/4 Ml Inj IV 40 mg QDAY AMRITA Administration Heparin Sodium (Porcine) 5,000 unit 11/21/20 23:00 11/28/20 22:07 Heparin 5,000 Unit/1 Ml Vial SUB-Q 5,000 unit Q12HR AMRITA Administration Hydromorphone HCl 0.5 mg 11/21/20 14:00 11/21/20 22:09 Hydromorphone 1 Mg/1 Ml Inj IV 0.5 mg Q3H PRN Administration Pain , Severe (7-10) Ceftriaxone Sodium 2 gm in 100 mls @ 200 mls/hr 11/22/20 14:00 11/28/20 13:41 Rocephin/Ns 2 Gm/100 Ml IV 11/29/20 14:59 200 mls/hr Q24H AMRITA Administration Protocol Lisinopril 20 mg 11/23/20 10:00 11/28/20 09:05 Lisinopril 20 Mg Tab PO 20 mg QDAY AMRITA Administration Magnesium Oxide 400 mg 11/25/20 10:00 11/28/20 09:12 Magnesium Oxide 400 Mg Tab PO 400 mg QDAY AMRITA Administration Methocarbamol 750 mg 11/21/20 22:54 Methocarbamol 750 Mg Tab PO Q8HR PRN muscle spasm Metoclopramide HCl 10 mg 11/21/20 22:55 Metoclopramide 10 Mg/2 Ml Inj IV Q6H PRN Nausea And Vomiting Morphine Sulfate 2 mg 11/22/20 14:00 11/22/20 15:53 Morphine 2 Mg/1 Ml Inj IV 2 mg Q4H PRN Administration Pain, Moderate (4-6) Ondansetron HCl 4 mg 11/21/20 22:55 Ondansetron 4 Mg/2 Ml Inj IV Q3H PRN Nausea And Vomiting Oxycodone/Acetaminophen 1 tab 11/21/20 22:55 11/28/20 16:40 Oxycodone /Acetaminophen 5-325mg Tab PO 1 tab Q6H PRN Administration Pain, Moderate (4-6) Sodium Chloride 10 ml 11/22/20 10:00 11/28/20 22:07 Sodium Chloride 0.9% 10 Ml Flush Syringe IV 10 ml BID AMRITA Administration Sodium Chloride 10 ml 11/21/20 22:55 Sodium Chloride 0.9% 10 Ml Flush Syringe IV PRN PRN LINE FLUSH Spironolactone 25 mg 11/22/20 10:00 11/28/20 09:04 Spironolactone 25 Mg Tab PO 25 mg QDAY AMRITA Administration Nutrition/Malnutrition Assess - Dietary Evaluation Nutrition/Malnutrition Findings: Nutrition Notes Start: 11/21/20 14:27 Freq: Status: Active Protocol: Document 11/21/20 14:28 CW (Rec: 11/21/20 14:31 CW [email or web address]) Nutrition Notes Need for Assessment generated from: egg caser,MST Initial or Follow up Brief Note Current Diagnosis Heart Failure Current Diet Cardiac Diet Height 5 ft 8 in Weight 113 kg [place] Body Weight (kg) 70.00 BMI 37.8 Weight change and time frame 06/21/2020: 114.1 kg Stable weight x 6 months Weight Status Obese Subjective/Other Information RN screen for MST d/t unsure weight loss. Pt weight is relatively stable based on last admission weight x6 months ago. Per chart, PO intake is excelent. Skin is intact. Nutrition Intervention Revisit per MD consult or patient Sign Off request: Additional Comments S/O for stable weight and good intact
[2020-11-29] MEDS: HEPARIN 5,000 UNIT/1 ML VIAL SUB-Q SCH ×2 (10:47→22:28)
[2020-11-29] MEDS: FUROSEMIDE 40 MG/4 ML INJ IV SCH (10:47)
[2020-11-29] MEDS: FAMOTIDINE 20 MG TAB PO SCH ×2 (10:54→22:29)
[2020-11-29] MEDS: oxyCODONE /ACETAMINOPHEN 5-325MG TAB PO PRN (10:54)
[2020-11-29] MEDS: SPIRONOLACTONE 25 MG TAB PO SCH (10:55)
[2020-11-29] MEDS: ASPIRIN 81 MG TAB CHEW PO SCH (10:55)
[2020-11-29] MEDS: FOLIC ACID 1 MG TAB PO SCH (10:55)
[2020-11-29] MEDS: LISINOPRIL 20 MG TAB PO SCH (10:58)
[2020-11-29] MEDS: carvediloL 12.5 MG TAB PO SCH ×2 (10:59→22:28)
[2020-11-29] MEDS: MAGNESIUM OXIDE 400 MG TAB PO SCH (10:59)
--- NOTE | 2020-11-29 14:31 | Progress Note ---
Assessment and Plan pt was scheduled for LHC today, however, unable to proceed with LHC today as pt ate a full breakfast despite being NPO status. Plan for LHC in AM. NPO after midnight. Continue daily IV Lasix for now. Closely monitor renal indices and electrolytes. The patient has been seen in conjunction with Dr. Delicia Reece who agrees with the assessment and plan of care. - Patient Problems (1) Acute on chronic HFrEF (heart failure with reduced ejection fraction) Current Visit: Yes Status: Acute (2) Cardiomyopathy Current Visit: Yes Status: Chronic Plan to address problem: EF 20-25% (3) Abnormal stress test Current Visit: Yes Status: Acute (4) Elevated troponin Current Visit: Yes Status: Acute Plan to address problem: Minimal trop elevation in the setting of acutely decompensated HF -Pt denies chest pain -No acute ischemic changes on ECG (5) Hypokalemia Current Visit: Yes Status: Acute (6) Cellulitis of lower extremity Current Visit: Yes Status: Acute (7) Hypertension Current Visit: Yes Status: Chronic Qualifiers: Hypertension type: essential hypertension Qualified Code(s): I10 - Essential (primary) hypertension (8) COPD (chronic obstructive pulmonary disease) Current Visit: Yes Status: Chronic (9) Obesity Current Visit: Yes Status: Chronic Qualifiers: Obesity type: due to excess calories Subjective Date of service: 11/29/20 Principal diagnosis: A/C HFrEF, CMP (EF 20-25%) Interval history: pt resting in bed, no current cardiac complaints. tele reviewed - in SR HR 90s. pt was scheduled for LHC today, however, unable to proceed with LHC today as pt ate a full breakfast despite being NPO status. Objective Last Vital Signs Temp 98.4 F 11/29/20 07:43 Pulse 101 H 11/29/20 10:59 Resp 17 11/29/20 07:43 BP 123/93 11/29/20 10:58 Pulse Ox 98 11/29/20 07:43 - Physical Examination General: No Apparent Distress HEENT: Positive: EOMI, Normocephaly, Mucus Membranes Moist Neck: Positive: neck supple, trachea midline. Negative: JVD/HJR Cardiac: Positive: Reg Rate and Rhythm, S1/S2 Lungs: Positive: Decreased Breath Sounds Neuro: Positive: Grossly Intact Abdomen: Positive: Soft. Negative: Tender Skin: Negative: Rash Musculoskeletal: No Pain Extremities: Present: upper extr. pulses, lower extr. pulses, edema (trace BLE) - Labs and Meds Coagulation 11/29/20 Range/Units 05:16 PT 12.9 (12.2-14.9) Sec. INR 0.99 (0.87-1.13) CBC 11/29/20 Range/Units 05:16 WBC 8.7 (4.5-11.0) K/mm3 RBC 3.32 L (3.65-5.03) M/mm3 Hgb 10.5 L (11.8-15.2) gm/dl Hct 31.6 L (35.5-45.6) % Plt Count 203 (140-440) K/mm3 Lymph # (Auto) 0.3 L (1.2-5.4) K/mm3 [place] # (Auto) 0.7 (0.0-0.8) K/mm3 Eos # (Auto) 0.0 (0.0-0.4) K/mm3 Baso # (Auto) 0.0 (0.0-0.1) K/mm3 Comprehensive Metabolic Panel 11/28/20 11/29/20 Range/Units 15:30 05:16 Sodium 142 (137-145) mmol/L Potassium 3.6 3.9 (3.6-5.0) mmol/L Chloride 99.2 (98-107) mmol/L Carbon Dioxide 34 H (22-30) mmol/L BUN 19 (9-20) mg/dL Creatinine 1.0 (0.8-1.3) mg/dL Glucose 132 H (75-100) mg/dL Calcium 7.8 L (8.4-10.2) mg/dL - Imaging and Cardiology EKG: report reviewed, image reviewed Echo: report reviewed (11/21/2020: EF 20-25%; severe LV diastolic dysfxn; mild pulm HTN, mod TR; trace pericardial effusion) Cardiac cath: pending - Telemetry EKG Rhythm: Sinus Rhythm - EKG Sinus rhythms and dysrhythmias: sinus rhythm Repolarization changes or abnormalities: nonspecific abnormality, ST segment, and/or T wave
[2020-11-29] MEDS: cefTRIAXone/NS 2 GM/100 ML 2 GM/100 ML BAG IV SCH (15:00)
[2020-11-30 04:40] LABS: Hematocrit 31.4 % (35.5-45.6); Hemoglobin 10.6 gm/dl (11.8-15.2); Mean Corpuscular HGB Conc 34 % (32-34); Mean Corpuscular Volume 93 fl (84-94); Platelet Count 213 K/mm3 (140-440); Red Blood Count 3.37 M/mm3 (3.65-5.03); Red Cell Distribution Width 16.8 % (13.2-15.2)
[2020-11-30 04:51] LABS: INR 1.06 (0.87-1.13)
[2020-11-30 04:59] LABS: BUN/Creatinine Ratio 25; Blood Urea Nitrogen 25 mg/dL (9-20); Calcium 8.1 mg/dL (8.4-10.2); Hemolysis Index 6
[2020-11-30] MEDS ORDERED: HEPARIN/NS 5000 UNIT/500ML 1,000 ML IR ONE (07:42)
[2020-11-30] MEDS ORDERED: SODIUM CHLORIDE 0.9% 500 ML 500 ML ONE (07:53)
[2020-11-30] MEDS: ASPIRIN 81 MG TAB CHEW PO SCH ×2 (08:01→10:55)
[2020-11-30 08:17] VITALS: BP 144/99
[2020-11-30] MEDS: MIDAZOLAM 2 MG/2 ML INJ ONE ×2 (08:32→08:37)
[2020-11-30] MEDS: fentaNYL 100 MCG/2 ML INJ ONE ×2 (08:32→08:37)
[2020-11-30] MEDS: NITROGLYCERIN SYRINGE 3 ML ONE ×2 (08:32→08:40)
[2020-11-30] MEDS: LIDOCAINE (2%) 20 MG/1 ML VIAL 20 ML MDV INFILTRATI ONE ×2 (08:33→08:39)
[2020-11-30] MEDS: HEPARIN 10,000 UNITS/10 ML VIAL ONE ×2 (08:33→08:40)
[2020-11-30] MEDS: VERAPAMIL 5 MG/2 ML INJ ONE ×2 (08:34→08:40)
--- NOTE | 2020-11-30 08:39 | Progress Note ---
Assessment and Plan Assessment and plan: -Scheduled for left heart catheterization today --Acute on chronic systolic CHF EF 20 to 25% Antifailure medications IV diuretics, beta-blockers, JUSTO inhibitors Input output monitoring, low-sodium diet, free water restriction Cardiology following, recommend ischemia work-up Stress test; reversible ischemia moderate size anterior and anterior apical areas globally dilated LV , ejection fraction 20% Cardiology recommend left heart catheterization Continue current cardiac medications --Chronic leg swelling Venous Doppler; bilateral negative for DVT Arterial Doppler; bilateral no stenosis Patient Will follow up with vascular surgery Upon discharge for further evaluation and management. --Right lower extremity cellulitis On ceftriaxone, follow cultures Keep RLE elevated. Empiric antibiotics --HTN; moderate control Continue current antihypertensives And as needed hydralazine --Severe protein calorie malnutrition/hypoproteinemia; Nutritional supplement, nutrition consult, supportive care --Hypokalemia --Hypomagnesemia -- Non Compliant --obesity; BMI 32.7; patient needs weight reduction when medically stable --DVT prophylaxis - heparin Closely monitor the patient and adjust management as needed Plan of care reviewed with the patient and and his nurse Cardiology evaluation recommendations noted and appreciated Brief history 40 Year old Male presents with bilateral lower extremity pain and swelling of both the legs. Patient has been compliant with Lasix but the swelling is not going down. Patient also has some shortness of breath since yesterday. Orthopnea present. No chest pain or pressure. Swelling of the legs has been going for a long time. Patient is being treated for hypertension and congestive heart failure and COPD. No exacerbating or relieving factors. Patient on Lasix. The patient is a 40-year-old male present with a chief complaint of bilateral lower extremity pain. Patient states he came to the emergency department bec ause he had pain in bilateral lower extremities secondary to the edema. Patient states he has been compliant with his Lasix but is not removing the fluid. Patient admits to some shortness of breath which occurred last night but adamantly denies ever having any type of chest pain pressure tightness or discomfort. Patient denies history of fever or cough. Patient gives his lower extremity pain a score of 10/10 11/22. Patient seen and examined at bedside this morning. Complains of right lower extremity pain. On diuretics for congestive heart failure. Started him on antibiotics for RLE cellulitis. Vascular studies both venous and arterial were essentially normal. Vascular surgery evaluation appreciated. 11/23. Continues to diurese well. I/O reviewed. Echocardiogram shows LVEF 20 -25% . Cardiology following. 11/24. Doing well. K is low - will replete. On diuretics. His right leg pain is better. Remains on ceftriaxone. 11/25. He complains his leg pain is still there. He is on antibiotics. On diuretics for heart failure 11/26. Abnormal stress test with reversible ischemia, cardiology recommended left heart catheterization on 11/29/2020 Continue current cardiac medications 11/27: Replace K. Patient for cardiac cath on 11/29/20, Continue abx. 11/28: Still with persistent hypokalemia will replace magnesium and potassium. We will repeat potassium today. To ensure correction in preparation for cardiac cath 11/29: Patient decided not to follow recommendations and EAT this morning, awaiting cardiology re-evaluation. I am not sure how he got food since he was NPO. Counselling provided to the patient. Continue current management. Patient is non- COMPLIANT. 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% Cardiology recommend 1- 2 more days of diuresis prior to discharge Patient is anxious to go home Denies chest pain or shortness of breath Vital signs reviewed Hospitalist Physical - Constitutional Vitals: Temp Pulse Resp BP Pulse Ox 98.5 F 101 H 15 144/99 91 11/30/20 04:03 11/30/20 04:03 11/30/20 07:00 11/30/20 07:00 11/30/20 04:03 General appearance: Present: no acute distress, well-nourished, obese - EENT Eyes: Present: PERRL, EOM intact - Neck Neck: Present: supple, normal ROM - Respiratory Respiratory effort: normal Respiratory: bilateral: diminished, rales, negative: rhonchi, wheezing, other - Cardiovascular Rhythm: regular Heart Sounds: Present: S1 & S2 HEART Score - HEART Score Age: < 45 Troponin: Troponin T 0.065 ng/mL (0.00-0.029) H 11/21/20 10:21 Troponin: < normal limit - Critical Actions Critical Actions: 0-3 pts:0.9-1.7%risk of adverse cardiac event.Candidate for discharge Results - Labs CBC & Chem 7: 11/30/20 04:13 11/30/20 04:13 Labs: Laboratory Last Values WBC 8.7 K/mm3 (4.5-11.0) 11/30/20 04:13 RBC 3.37 M/mm3 (3.65-5.03) L 11/30/20 04:13 Hgb 10.6 gm/dl (11.8-15.2) L 11/30/20 04:13 Hct 31.4 % (35.5-45.6) L 11/30/20 04:13 MCV 93 fl (84-94) 11/30/20 04:13 MCH 32 pg (28-32) 11/30/20 04:13 MCHC 34 % (32-34) 11/30/20 04:13 RDW 16.8 % (13.2-15.2) H 11/30/20 04:13 Plt Count 213 K/mm3 (140-440) 11/30/20 04:13 Lymph % (Auto) 3.8 % (13.4-35.0) L 11/29/20 05:16 [place] % (Auto) 8.0 % (0.0-7.3) H 11/29/20 05:16 Eos % (Auto) 0.1 % (0.0-4.3) 11/29/20 05:16 Baso % (Auto) 0.3 % (0.0-1.8) 11/29/20 05:16 Lymph # (Auto) 0.3 K/mm3 (1.2-5.4) L 11/29/20 05:16 [place] # (Auto) 0.7 K/mm3 (0.0-0.8) 11/29/20 05:16 Eos # (Auto) 0.0 K/mm3 (0.0-0.4) 11/29/20 05:16 Baso # (Auto) 0.0 K/mm3 (0.0-0.1) 11/29/20 05:16 Add Manual Diff Complete 11/23/20 05:53 Total Counted 100 11/23/20 05:53 Seg Neutrophils % 87.8 % (40.0-70.0) H 11/29/20 05:16 Seg Neuts % (Manual) 92.0 % (40.0-70.0) H 11/23/20 05:53 Band Neutrophils % 3.0 % 11/23/20 05:53 Lymphocytes % (Manual) 1.0 % (13.4-35.0) L 11/22/20 05:15 Monocytes % (Manual) 5.0 % (0.0-7.3) 11/23/20 05:53 Nucleated RBC % Not Reportable 11/23/20 05:53 Seg Neutrophils # 7.6 K/mm3 (1.8-7.7) 11/29/20 05:16 Seg Neutrophils # Man 12.2 K/mm3 (1.8-7.7) H 11/23/20 05:53 Band Neutrophils # 0.4 K/mm3 11/23/20 05:53 Lymphocytes # (Manual) 0.0 K/mm3 (1.2-5.4) L 11/23/20 05:53 Abs React Lymphs (Man) 0.0 K/mm3 11/23/20 05:53 Monocytes # (Manual) 0.7 K/mm3 (0.0-0.8) 11/23/20 05:53 Eosinophils # (Manual) 0.0 K/mm3 (0.0-0.4) 11/23/20 05:53 Basophils # (Manual) 0.0 K/mm3 (0.0-0.1) 11/23/20 05:53 Metamyelocytes # 0.0 K/mm3 11/23/20 05:53 Myelocytes # 0.0 K/mm3 11/23/20 05:53 Promyelocytes # 0.0 K/mm3 11/23/20 05:53 Blast Cells # 0.0 K/mm3 11/23/20 05:53 WBC Morphology Not Reportable 11/23/20 05:53 Hypersegmented Neuts Not Reportable 11/23/20 05:53 Hyposegmented Neuts Not Reportable 11/23/20 05:53 Hypogranular Neuts Not Reportable 11/23/20 05:53 Smudge Cells Not Reportable 11/23/20 05:53 Toxic Granulation Not Reportable 11/23/20 05:53 Toxic Vacuolation Not Reportable 11/23/20 05:53 Dohle Bodies Not Reportable 11/23/20 05:53 Pelger-Huet Anomaly Not Reportable 11/23/20 05:53 Nadya Rods Not Reportable 11/23/20 05:53 Platelet Estimate Consistent w auto 11/23/20 05:53 Clumped Platelets Not Reportable 11/23/20 05:53 Plt Clumps, EDTA Not Reportable 11/23/20 05:53 Large Platelets Rare 11/23/20 05:53 Giant Platelets Not Reportable 11/23/20 05:53 Platelet Satelliting Not Reportable 11/23/20 05:53 Plt Morphology Comment Not Reportable 11/23/20 05:53 RBC Morphology Not Reportable 11/23/20 05:53 Dimorphic RBCs Not Reportable 11/23/20 05:53 Polychromasia Not Reportable 11/23/20 05:53 Hypochromasia Not Reportable 11/23/20 05:53 Poikilocytosis Not Reportable 11/23/20 05:53 Anisocytosis 1+ 11/23/20 05:53 Microcytosis Not Reportable 11/23/20 05:53 Macrocytosis Not Reportable 11/23/20 05:53 Spherocytes Not Reportable 11/23/20 05:53 Pappenheimer Bodies Not Reportable 11/23/20 05:53 Sickle Cells Not Reportable 11/23/20 05:53 Target Cells Not Reportable 11/23/20 05:53 Tear Drop Cells Not Reportable 11/23/20 05:53 Ovalocytes Not Reportable 11/23/20 05:53 Helmet Cells Not Reportable 11/23/20 05:53 [place] Bodies Not Reportable 11/23/20 05:53 [place] Rings Not Reportable 11/23/20 05:53 Yan Cells Not Reportable 11/23/20 05:53 Bite Cells Not Reportable 11/23/20 05:53 Crenated Cell Not Reportable 11/23/20 05:53 Elliptocytes Not Reportable 11/23/20 05:53 Acanthocytes (Spur) Not Reportable 11/23/20 05:53 Rouleaux Not Reportable 11/23/20 05:53 Hemoglobin C Crystals Not Reportable 11/23/20 05:53 Schistocytes Not Reportable 11/23/20 05:53 Malaria parasites Not Reportable 11/23/20 05:53 Louie Bodies Not Reportable 11/23/20 05:53 Hem Pathologist Commnt No 11/23/20 05:53 PT 13.6 Sec. (12.2-14.9) 11/30/20 04:13 INR 1.06 (0.87-1.13) 11/30/20 04:13 Sodium 142 mmol/L (137-145) 11/30/20 04:13 Potassium 3.7 mmol/L (3.6-5.0) 11/30/20 04:13 Chloride 100.4 mmol/L (98-107) 11/30/20 04:13 Carbon Dioxide 30 mmol/L (22-30) 11/30/20 04:13 Anion Gap 15 mmol/L 11/30/20 04:13 BUN 25 mg/dL (9-20) H 11/30/20 04:13 Creatinine 1.0 mg/dL (0.8-1.3) 11/30/20 04:13 Estimated GFR > 60 ml/min 11/30/20 04:13 BUN/Creatinine Ratio 25 % 11/30/20 04:13 Glucose 139 mg/dL (75-100) H 11/30/20 04:13 POC Glucose 196 mg/dL (70-105) H 11/22/20 10:13 Hemoglobin A1c 6.8 % (4-6) H 11/22/20 05:15 Calcium 8.1 mg/dL (8.4-10.2) L 11/30/20 04:13 Magnesium 2.20 mg/dL (1.7-2.3) 11/30/20 04:13 Total Bilirubin 0.30 mg/dL (0.1-1.2) 11/26/20 05:10 AST 21 units/L (5-40) 11/26/20 05:10 ALT 24 units/L (7-56) 11/26/20 05:10 Alkaline Phosphatase 99 units/L (35-129) 11/26/20 05:10 Troponin T 0.065 ng/mL (0.00-0.029) H 11/21/20 10:21 NT-Pro-B Natriuret Pep 72111 pg/mL (0-450) H 11/21/20 08:06 Total Protein 5.4 g/dL (6.3-8.2) L 11/26/20 05:10 Albumin 2.4 g/dL (3.9-5) L 11/26/20 05:10 Albumin/Globulin Ratio 0.8 % 11/26/20 05:10 Triglycerides 145 mg/dL (2-149) 11/21/20 10:21 Cholesterol 111 mg/dL (50-199) 11/21/20 10:21 LDL Cholesterol Direct 53 mg/dL (50-130) 11/21/20 10:21 HDL Cholesterol 27 mg/dL (40-59) L 11/21/20 10:21 Cholesterol/HDL Ratio 4.11 % 11/21/20 10:21 Procalcitonin 0.84 ng/mL (<0.15) 11/26/20 05:10 Hyatt/IV: Voiding Method Toilet Active Medications - Current Medications Current Medications: Generic Name Dose Route Start Last Admin Trade Name Freq PRN Reason Stop Dose Admin Acetaminophen 650 mg 11/21/20 22:55 Acetaminophen 325 Mg Tab PO Q4H PRN Pain MILD(1-3)/Fever >100.5/YU Aspirin 81 mg 11/22/20 10:00 11/30/20 08:01 Aspirin 81 Mg Tab Chew PO 81 mg QDAY AMRITA Administration Carvedilol 12.5 mg 11/21/20 23:00 11/29/20 22:28 Carvedilol 12.5 Mg Tab PO 12.5 mg BID AMRITA Administration Famotidine 20 mg 11/22/20 10:00 11/29/20 22:29 Famotidine 20 Mg Tab PO 20 mg BID AMRITA Administration Folic Acid 1 mg 11/22/20 10:00 11/29/20 10:55 Folic Acid 1 Mg Tab PO 1 mg QDAY AMRITA Administration Furosemide 40 mg 11/25/20 10:00 11/29/20 10:47 Furosemide 40 Mg/4 Ml Inj IV 40 mg QDAY AMRITA Administration Heparin Sodium (Porcine) 5,000 unit 11/21/20 23:00 11/29/20 22:28 Heparin 5,000 Unit/1 Ml Vial SUB-Q 5,000 unit Q12HR AMRITA Administration Lisinopril 20 mg 11/23/20 10:00 11/29/20 10:58 Lisinopril 20 Mg Tab PO 20 mg QDAY AMRITA Administration Magnesium Oxide 400 mg 11/25/20 10:00 11/29/20 10:59 Magnesium Oxide 400 Mg Tab PO 400 mg QDAY AMRITA Administration Methocarbamol 750 mg 11/21/20 22:54 Methocarbamol 750 Mg Tab PO Q8HR PRN muscle spasm Metoclopramide HCl 10 mg 11/21/20 22:55 Metoclopramide 10 Mg/2 Ml Inj IV Q6H PRN Nausea And Vomiting Morphine Sulfate 2 mg 11/22/20 14:00 11/22/20 15:53 Morphine 2 Mg/1 Ml Inj IV 2 mg Q4H PRN Administration Pain, Moderate (4-6) Ondansetron HCl 4 mg 11/21/20 22:55 Ondansetron 4 Mg/2 Ml Inj IV Q3H PRN Nausea And Vomiting Oxycodone/Acetaminophen 1 tab 11/21/20 22:55 11/29/20 10:54 Oxycodone /Acetaminophen 5-325mg Tab PO 1 tab Q6H PRN Administration Pain, Moderate (4-6) Sodium Chloride 10 ml 11/22/20 10:00 11/29/20 22:29 Sodium Chloride 0.9% 10 Ml Flush Syringe IV 10 ml BID AMRITA Administration Sodium Chloride 10 ml 11/21/20 22:55 Sodium Chloride 0.9% 10 Ml Flush Syringe IV PRN PRN LINE FLUSH Spironolactone 25 mg 11/22/20 10:00 11/29/20 10:55 Spironolactone 25 Mg Tab PO 25 mg QDAY AMRITA Administration Nutrition/Malnutrition Assess - Dietary Evaluation Nutrition/Malnutrition Findings: Nutrition Notes Start: 11/21/20 14:27 Freq: Status: Active Protocol: Document 11/29/20 12:42 (Rec: 11/29/20 12:44 [email or web address]) Nutrition Notes Need for Assessment generated from: LOS Initial or Follow up Brief Note Current Diagnosis Heart Failure Current Diet Cardiac Diet, Consistent CHO Subjective/Other Information Screen for LOS. Pt reports eating 100% of meals and has no questions. Nutrition Intervention Revisit per MD consult or patient Sign Off request:
[2020-11-30] MEDS ORDERED: FUROSEMIDE 40 MG/4 ML INJ ONE (08:47)
--- NOTE | 2020-11-30 09:24 | Cardiac Catherization Report ---
CARDIAC CATHETERIZATION REFERRING PHYSICIAN: Hospitalist service. INDICATION FOR PROCEDURE: The patient is a pleasant 40-year-old -[place] female with history of severe dilated cardiomyopathy, ejection fraction of 20%, presents with shortness of breath, chest pain, heart failure exacerbation, referred for left heart catheterization for further elucidation of coronary anatomy. Risks, benefits, alternatives were explained at length prior to obtaining informed consent. PROCEDURE IN DETAIL: The patient was brought to catheterization lab in a postabsorptive state, prepped and draped in sterile fashion. Zachary's test in right hand is normal. A 2 mL of 2% lidocaine used to anesthetize the right wrist. A standard 6-[place] hydrophilic sheath used to cannulate the right radial artery via modified Seldinger technique. All exchanges performed to exchange a J-tip guidewire. JL3.5 catheter used to engage the left main. No dampening or ventricularization. Cineangiography performed in all projections. JR4 catheter was used to cross the aortic valve under fluoroscopic guidance. Left ventriculography performed in 30 RODRIGUEZ and CZECH projections via hand injections, catheter flushed. Manual pullback performed with continuous pressure monitoring. Catheter used to engage the right. Next, a JR4 catheter used to cross the aortic valve under fluoroscopic guidance. Left ventriculography performed in 30 RODRIGUEZ and 30 CZECH projections via hand injections, catheter flushed. Manual pullback performed with continuous pressure monitoring. Catheter used to engage the right coronary. No dampening or ventricularization. Cineangiography performed in all projections. Next, catheter removed from the body of wire, sheath removed. Manual pressure used to achieve hemostasis. I directly supervised the administration of moderate sedation with fentanyl and Versed from 8:30 to 8:55 a.m. No immediate complications were identified. DATA: Aortic pressure is 160/100, LV pressure is 160, LVP of 43 mmHg. The patient remained in normal sinus rhythm throughout the procedure. No dysrhythmias. Left ventriculography reveals severe global left ventricular hypokinesis, estimated ejection fraction of 20-25%. No evidence of aortic stenosis. CORONARY ANATOMY: This is a right dominant system. Left main without significant disease, bifurcates left anterior descending and left circumflex. LAD is a moderate-sized vessel, courses anterior intergroove, wraps around the apex, no significant disease in LAD or circumflex vessels. Right coronary is a large vessel, courses AV groove, distally bifurcates into posterior and posterolateral branch. No discrete stenoses identified. CONCLUSIONS: 1. No angiographic evidence of significant epicardial coronary disease in this right dominant system. 2. Severe global left ventricular hypokinesis, estimated ejection fraction of 20-25%. 3. No evidence of aortic stenosis. 4. Moderately elevated LVEDP. These findings are consistent with severe nonischemic dilated cardiomyopathy, not ideally compensated. IV Lasix 40 x 1 now, continue optimal medical therapy from a heart failure perspective. Low salt reduction. Results of the procedure were explained at length to the patient. All questions and concerns were addressed. The patient will likely need at least another day of diuresis in a day or two diuresis prior to discharge. Standard radial care. We will follow along. JOB# [id number] CONSUELO/KYLEE
[2020-11-30] MEDS: FAMOTIDINE 20 MG TAB PO SCH (10:54)
[2020-11-30] MEDS: carvediloL 12.5 MG TAB PO SCH (10:54)
[2020-11-30] MEDS: SPIRONOLACTONE 25 MG TAB PO SCH (10:54)
[2020-11-30] MEDS: FOLIC ACID 1 MG TAB PO SCH (10:55)
[2020-11-30] MEDS: FUROSEMIDE 40 MG/4 ML INJ IV SCH (10:55)
[2020-11-30] MEDS: HEPARIN 5,000 UNIT/1 ML VIAL SUB-Q SCH (10:55)
[2020-11-30] MEDS: LISINOPRIL 20 MG TAB PO SCH (10:55)
[2020-11-30] MEDS: MAGNESIUM OXIDE 400 MG TAB PO SCH (10:55)
--- NOTE | 2020-11-30 14:37 | Discharge Summary ---
Providers - Providers Date of Admission: 11/22/20 13:34 Date of discharge: 11/30/20 Attending physician: QIAN MERRITT 11/22/20 07:22 Consult to Physician [CONS] Routine Comment: Consulting Provider: KENDALL KEY Physician Instructions: Reason For Exam: Lymphedema versus bilateral leg swelling 11/22/20 08:01 Consult to Physician [CONS] Routine Comment: Consulting Provider: NORIS RAO Physician Instructions: Reason For Exam: CHF exacerbation, elevated troponin 11/24/20 07:30 Physical Therapy Evaluation and Treat [CONS] Routine Comment: Reason For Exam: unsteady gait Primary care physician: [employer] Hospitalization Reason for admission: Worsening shortness of breath/worsening leg edema Condition: Fair Hospital course: -Scheduled for left heart catheterization today --Acute on chronic systolic CHF EF 20 to 25% Antifailure medications IV diuretics, beta-blockers, JUSTO inhibitors Input output monitoring, low-sodium diet, free water restriction Cardiology following, recommend ischemia work-up Stress test; reversible ischemia moderate size anterior and anterior apical areas globally dilated LV , ejection fraction 20% Cardiology recommend left heart catheterization Continue current cardiac medications --Chronic leg swelling Venous Doppler; bilateral negative for DVT Arterial Doppler; bilateral no stenosis Patient Will follow up with vascular surgery Upon discharge for further evaluation and management. --Right lower extremity cellulitis On ceftriaxone, follow cultures Keep RLE elevated. Empiric antibiotics --HTN; moderate control Continue current antihypertensives And as needed hydralazine --Severe protein calorie malnutrition/hypoproteinemia; Nutritional supplement, nutrition consult, supportive care --Hypokalemia --Hypomagnesemia -- Non Compliant Disposition: [id number] LEFT AGAINST MED ADVICE Time spent for discharge: 35 min Core Measure Documentation - Palliative Care Palliative Care/ Comfort Measures: Not Applicable - Core Measures Any of the following diagnoses?: none Exam - Constitutional Vitals: Temp Pulse Resp BP Pulse Ox 98.5 F 104 H 15 144/99 86 11/30/20 04:03 11/30/20 12:00 11/30/20 07:00 11/30/20 07:00 11/30/20 06:58 General appearance: Present: mild distress, well-nourished - EENT Eyes: Present: PERRL, EOM intact - Neck Neck: Present: supple, normal ROM - Respiratory Respiratory effort: normal Respiratory: bilateral: diminished, negative: rales, rhonchi, wheezing - Cardiovascular Rhythm: regular Heart Sounds: Present: S1 & S2 - Extremities Extremities: no ischemia, No edema - Abdominal General gastrointestinal: Present: soft, non-tender, non-distended, normal bowel sounds - Integumentary Integumentary: Present: clear, warm - Musculoskeletal Musculoskeletal: strength equal bilaterally, generalized weakness - Psychiatric Psychiatric: appropriate mood/affect, cooperative - Neurologic Neurologic: CNII-XII intact, moves all extremities Plan Activity: advance as tolerated Diet: other (cardiac diet) Additional Instructions: Patient left AMA Follow up with: PRIMARY CARE, [Primary Care Provider] - 7 Days Forms: AMA Form
--- NOTE | 2020-11-30 14:37 | Progress Note ---
Assessment and Plan Pt is a 39 y.o. male with a past medical hx of COPD, NICMP (EF 35-40% on echo 09/2019), chronic HFrEF, HTN, GERD, and tobacco abuse. Echo reviewed (11/21/20): EF 20-25%. LV: mod dilated, Mild concentric LVH, Severe hypokinesis, severe dyastolic dysfunction (restrictive pattern). RV mod dilated. RV mildly hypokinetic. Mild MR. Mod TR. RVSP 43. Telemetry reviewed: ST 102. Episode of 10 beat VTach this am. [facility] (11/30/20) reviewed: Normal Coronaries. Severe global LV hypokinesis EF 20- 25%. Moderately elevated LVEDP. New diagnosis of NICMP with EF 20-25%, paroxysmal ventricular arrhythmia noted overnight. Pt is recommended to wear lifevest. RLE swelling addressed per vascular recs. Continue current diuretic regimen. Repeat BMP in AM. Continue BB, Lisinopril in setting of Cardiomyopathy. Continue DVT prophylaxis per primary. Currently stable cardiac status. Will follow. Pt has decided to leave the hospital to "take care of urgent business." He states he intends to return within several hours. Pt is recommended to wear life vest at this time in setting of NICMP with paroxysmal ventricular arrhythmia. I discussed with the patient the risks of leaving the hospital at this time extensively including the risk of fatal arrhythmia and the need for life vest placement. If/when pt returns will proceed with ordering lifevest placement. Pt is leaving against medical advice. He was strongly counselled against discharge at this point in his care. Pt should f/u with Dr Lopez in our office within 1-2 weeks of discharge. This patient was seen in conjunction with Dr Mary Reece, who agrees with this assessment and plan of care. - Patient Problems (1) Acute on chronic HFrEF (heart failure with reduced ejection fraction) Current Visit: Yes Status: Acute LLE edema is significantly improved, 1+ today. Pt is resting comfortably, no SOB or orthopnea. (2) NICMP (cardiomyopathy) Current Visit: Yes Status: Chronic Echo reviewed (11/21/20): EF 20-25%. LV: mod dilated, Mild concentric LVH, Severe hypokinesis, severe dyastolic dysfunction (restrictive pattern). RV mod dilated. RV mildly hypokinetic. Mild MR. Mod TR. RVSP 43. [facility] (11/30/20) reviewed: Normal Coronaries. Severe global LV hypokinesis EF 20-25%. Moderately elevated LVEDP. (3) COPD (chronic obstructive pulmonary disease) Current Visit: Yes Status: Chronic (4) Elevated troponin Current Visit: Yes Status: Acute Troponin is sub acute. Pt denies CP. Continue to trend No. (5) Hypokalemia Current Visit: Yes Status: Acute Potassium is being repleated PRN per primary team. (6) HTN (hypertension) Current Visit: Yes Status: Chronic Qualifiers: Hypertension type: essential hypertension Qualified Code(s): I10 - Essential (primary) hypertension Optimize antihypertensive regimen. Increase Coreg to 25mg PO BID. (7) Gastroesophageal reflux disease Current Visit: Yes Status: Chronic Qualifiers: Esophagitis presence: without esophagitis Qualified Code(s): K21.9 - Gastro-esophageal reflux disease without esophagitis (8) Obesity Current Visit: Yes Status: Chronic Qualifiers: Obesity type: due to excess calories (9) Tobacco use Current Visit: Yes Status: Chronic Tobacco cessation encouraged. (10) Cellulitis Current Visit: Yes Status: Acute (11) Normal Coronary Arteries Current Visit: Yes Status: Chronic Subjective Date of service: 11/30/20 Principal diagnosis: A/C HFrEF, CMP (EF 20-25%) Interval history: Pt is resting comfortably in bed. No new cardiac complaints. No CP or SOB overnight. Telemetry reviewed: ST 102. Episode of 10 beat VTach this am. Objective Last Vital Signs Temp 98.5 F 11/30/20 04:03 Pulse 104 H 11/30/20 12:00 Resp 15 11/30/20 07:00 BP 144/99 11/30/20 07:00 Pulse Ox 86 11/30/20 06:58 - Physical Examination General: No Apparent Distress HEENT: Positive: EOMI, Normocephaly, Mucus Membranes Moist Neck: Positive: neck supple, trachea midline. Negative: JVD/HJR Neuro: Positive: Grossly Intact Abdomen: Positive: Soft. Negative: Tender Skin: Negative: Rash Musculoskeletal: No Pain Extremities: Present: upper extr. pulses, lower extr. pulses, edema (trace BLE) - Labs and Meds Coagulation 11/30/20 Range/Units 04:13 PT 13.6 (12.2-14.9) Sec. INR 1.06 (0.87-1.13) CBC 11/30/20 Range/Units 04:13 WBC 8.7 (4.5-11.0) K/mm3 RBC 3.37 L (3.65-5.03) M/mm3 Hgb 10.6 L (11.8-15.2) gm/dl Hct 31.4 L (35.5-45.6) % Plt Count 213 (140-440) K/mm3 Comprehensive Metabolic Panel 11/30/20 Range/Units 04:13 Sodium 142 (137-145) mmol/L Potassium 3.7 (3.6-5.0) mmol/L Chloride 100.4 (98-107) mmol/L Carbon Dioxide 30 (22-30) mmol/L BUN 25 H (9-20) mg/dL Creatinine 1.0 (0.8-1.3) mg/dL Glucose 139 H (75-100) mg/dL Calcium 8.1 L (8.4-10.2) mg/dL - Imaging and Cardiology EKG: report reviewed, image reviewed Echo: report reviewed (11/21/2020: EF 20-25%; severe LV diastolic dysfxn; mild pulm HTN, mod TR; trace pericardial effusion) Cardiac cath: pending - EKG Sinus rhythms and dysrhythmias: sinus rhythm Repolarization changes or abnormalities: nonspecific abnormality, ST segment, and/or T wave
== END 2020-11-30 13:55 | disposition left against medical advice (07) | DRG 286 ==
LOC: ED 07:38 → 4A 11:12 → OBSVTOIN 11-22 13:34
PROVIDERS: ADMIT Internal Medicine; ATTEND Internal Medicine
PROC: 4A023N7 Measurement of Cardiac Sampling and Pressure, Left Heart, Percutaneous Approach (ICD-10-PCS; principal; 2020-11-30)
PROC: B211YZZ Fluoroscopy of Multiple Coronary Arteries using Other Contrast (ICD-10-PCS; 2020-11-30)
PROC: B215YZZ Fluoroscopy of Left Heart using Other Contrast (ICD-10-PCS; 2020-11-30)
DX: I11.0 Hypertensive heart disease with heart failure (principal); E43 Unspecified severe protein-calorie malnutrition; I50.43 Acute on chronic combined systolic (congestive) and diastolic (congestive) heart failure; I42.8 Other cardiomyopathies; E87.6 Hypokalemia; K21.9 Gastro-esophageal reflux disease without esophagitis; J44.9 Chronic obstructive pulmonary disease, unspecified; E83.42 Hypomagnesemia; Z53.29 Procedure and treatment not carried out because of patient's decision for other reasons; F17.210 Nicotine dependence, cigarettes, uncomplicated; D72.829 Elevated white blood cell count, unspecified; I89.0 Lymphedema, not elsewhere classified; E66.9 Obesity, unspecified; E77.8 Other disorders of glycoprotein metabolism; Z68.32 Body mass index [BMI] 32.0-32.9, adult
CPT/HCPCS: 36415; 71045; 78452; 80048; 80053; 80061; 82962; 83036; 83735; 83880; 84132; 84145; 84484; 85007; 85025; 85027; 85610; 93005; 93017; 93306; 93458; 93925; 93970; 96365; 96375; 96376; G0378; A9502; C1894; J0696; J1170; J1644; J1940; J2250; J2270; J2405; J2785; J3010; J3475; J3480; J7040; J7050; Q9967

== ENCOUNTER 2020-12-07 03:36 | Inpatient (IN) | payer OTHER ==
--- NOTE | 2020-12-07 04:14 | XRay Report ---
CHEST 1 VIEW INDICATION: CP pawel. COMPARISON: 11/24/2020 FINDINGS: Support devices: None. Heart: Enlarged, unchanged. Lungs/Pleura: There are diffuse bilateral pulmonary opacities. No significant effusion, no pneumothor ax. IMPRESSION: 1. Given the cardiomegaly, diffuse bilateral pulmonary opacities may be due to pulmonary edema. Howev er, no pleural effusion is seen. Signer Name: Dany Desouza MD Signed: 12/07/2020 4:09 AM Workstation Name: [id number]
[2020-12-07 04:51] LABS: Hemoglobin 11.1 gm/dl (11.8-15.2); Mean Corpuscular HGB Conc 34 % (32-34); Mean Corpuscular Volume 96 fl (84-94); Platelet Count 247 K/mm3 (140-440); Red Blood Count 3.43 M/mm3 (3.65-5.03); Red Cell Distribution Width 17.3 % (13.2-15.2)
[2020-12-07 04:54] LABS: Basophils % (Auto) 0.5 % (0.0-1.8); Eosinophils % (Auto) 0.2 % (0.0-4.3); Lymphocytes % (Auto) 7.7 % (13.4-35.0); Monocytes % (Auto) 9.2 % (0.0-7.3)
[2020-12-07 04:55] LABS: Lymphocytes # (Auto) 0.8 K/mm3 (1.2-5.4); Monocytes # (Auto) 0.9 K/mm3 (0.0-0.8)
[2020-12-07 05:12] LABS: Alanine Aminotransferase 54 units/L (7-56); Albumin 3.2 g/dL (3.9-5); BUN/Creatinine Ratio 22; Blood Urea Nitrogen 28 mg/dL (9-20); Calcium 8.4 mg/dL (8.4-10.2); Hemolysis Index 7
[2020-12-07] MEDS ORDERED: FUROSEMIDE 40 MG/4 ML INJ IV ONE (07:59)
[2020-12-07] MEDS ORDERED: AZITHROMYCIN/NS 500 MG/250 ML 500 MG/250 ML BAG IV ONE (07:59)
[2020-12-07] MEDS ORDERED: ASPIRIN 325 MG TAB PO ONE (07:59)
[2020-12-07] MEDS ORDERED: dexAMETHasone 4 MG/ML VIAL IV ONE (07:59)
--- NOTE | 2020-12-07 08:03 | Emergency Department Report ---
ED General Adult HPI - General Chief complaint: Dyspnea/Respdistress Stated complaint: TROUBLE BREATHING PUI?: Yes Time Seen by Provider: 12/07/20 07:12 Source: patient, RN notes reviewed, old records reviewed Limitations: Physical Limitation - History of Present Illness Initial comments: The patient was evaluated in the emergency department for symptoms described in the history of present illness. He/she was evaluated in the context of the global COVID-19 pandemic, which necessitated consideration that the patient might be at risk for infection with the virus that causes COVID-19. Institutional protocols and algorithms that pertain to the evaluation of patients at risk for COVID-19 are in a state of rapid change based on information released by regulatory bodies including the CDC and federal and state organizations. These policies and algorithms were followed during the patient's care in the emergency department. Please note that these policies, procedures and recommendations changed on a rapid basis. During the entire history and physical examination, I had on complete personal protective equipment. This is a 40-year-old gentleman. The patient has a past medical history of nonischemic cardiomyopathy, EF of 20 to 25%. Also has a history of chronic lower extremity swelling, recently had lower extremity studies which were nega tive for DVT, or stenoses. Also has history of question of right lower extremity cellulitis versus venous stasis, as well as hypertension, hypoproteinemia, and protein calorie malnutrition. The patient was recently admitted to this hospital for CHF exacerbation, and was discharged AGAINST MEDICAL ADVICE on November 30, 2020, because as per cardiology documentation, the patient had to "take care of her urgent business." Was indicated at that time that he had plan to return to the hospital within several hours. He was also recommended to wear a LifeVest at the time, in the setting of nonischemic cardiomyopathy, with paroxysmal ventricular arrhythmia. Today, the patient presents to the ER with a recurrent complaint of cough, wheezing, shortness of breath, lower extremity swelling. He thinks he has loss of taste and smell but he is not sure. No fever. No headache. No neck pain. Denies chest pain abdominal pain. No urinary symptoms. -: Gradual, days(s) Location: left, right, lower extremity Consistency: constant Improves with: rest Worsens with: movement - Related Data Home Medications Medication Instructions Recorded Confirmed Last Taken Furosemide [Lasix TAB] 40 mg PO BID 11/21/20 11/21/20 Unknown Hydralazine HCl 50 mg PO BID 11/21/20 11/21/20 Unknown Spironolactone [Aldactone] 25 mg PO QDAY 11/21/20 11/21/20 Unknown methOCARBAMOL [Robaxin TAB] 1 tab PO Q8HR PRN 11/21/20 11/21/20 Unknown Previous Rx's Medication Instructions Recorded Last Taken Type Aspirin [Aspirin BABY CHEW TAB] 81 mg PO QDAY 100 Days #30 tab.chew 06/24/20 Unknown Rx Folic Acid [Folvite] 1 mg PO QDAY #30 tablet 06/24/20 Unknown Rx carvediloL [Coreg] 12.5 mg PO BID 30 Days #60 tablet 06/24/20 Unknown Rx methOCARBAMOL [Robaxin TAB] 750 mg PO Q8H PRN #90 tablet 06/24/20 Unknown Rx Allergies Allergy/AdvReac Type Severity Reaction Status Date / Time No Known Allergies Allergy Verified 06/16/18 18:08 ED Review of Systems ROS: Stated complaint: TROUBLE BREATHING Other details as noted in HPI ED Past Medical Hx - Past Medical History Previous Medical History?: Yes Hx Hypertension: Yes Hx Congestive Heart Failure: Yes Hx Diabetes: No Hx GERD: Yes Hx Arthritis: Yes Hx Asthma: No Hx COPD: Yes Hx HIV: No - Surgical History Past Surgical History?: Yes Additional Surgical History: Hernia repair - Social History Smoking Status: Current Every Day Smoker Substance Use Type: None - Medications Home Medications: Home Medications Medication Instructions Recorded Confirmed Last Taken Type Aspirin [Aspirin BABY CHEW TAB] 81 mg PO QDAY 100 Days #30 tab.chew 06/24/20 11/21/20 Unknown Rx Folic Acid [Folvite] 1 mg PO QDAY #30 tablet 06/24/20 11/21/20 Unknown Rx carvediloL [Coreg] 12.5 mg PO BID 30 Days #60 tablet 06/24/20 11/21/20 Unknown Rx methOCARBAMOL [Robaxin TAB] 750 mg PO Q8H PRN #90 tablet 06/24/20 11/21/20 Unknown Rx Furosemide [Lasix TAB] 40 mg PO BID 11/21/20 11/21/20 Unknown History Hydralazine HCl 50 mg PO BID 11/21/20 11/21/20 Unknown History Spironolactone [Aldactone] 25 mg PO QDAY 11/21/20 11/21/20 Unknown History methOCARBAMOL [Robaxin TAB] 1 tab PO Q8HR PRN 11/21/20 11/21/20 Unknown History ED Physical Exam - General Limitations: Physical Limitation General appearance: alert, anxious, in distress, obese - Head Head exam: Present: atraumatic, normocephalic - Eye Eye exam: Present: normal appearance, EOMI. Absent: nystagmus - ENT ENT exam: Present: normal exam, normal orophraynx, mucous membranes moist, normal external ear exam - Neck Neck exam: Present: normal inspection, full ROM. Absent: tenderness, meningismus - Respiratory Respiratory exam: Present: respiratory distress, rales, rhonchi, accessory muscle use. Absent: stridor - Cardiovascular Cardiovascular Exam: Present: regular rate, normal rhythm, normal heart sounds. Absent: bradycardia, tachycardia, irregular rhythm, systolic murmur, diastolic murmur, rubs, gallop - GI/Abdominal GI/Abdominal exam: Present: soft. Absent: distended, tenderness, guarding, rebound, rigid, pulsatile mass - Rectal Rectal exam: Present: deferred - Extremities Exam Extremities exam: Present: normal inspection, full ROM, pedal edema (3+ edema in the bilateral lower extremities), other (2+ pulses noted in the bilateral upper and lower extremities. There is no palpable cord. negative Homans sign. Muscular compartments are soft. The pelvis is stable.). Absent: calf tenderness - Back Exam Back exam: Present: normal inspection. Absent: tenderness, CVA tenderness (R), CVA tenderness (L), paraspinal tenderness, vertebral tenderness - Neurological Exam Neurological exam: Present: alert, other (No facial droop. Tongue midline. E xtraocular movements intact bilaterally. Facial sensation intact to light touch in V1, V2, V3 distribution bilaterally. 5 and a 5 strength in 4 extremities. Sensation intact to light touch in 4 extremities.). Absent: motor sensory deficit - Psychiatric Psychiatric exam: Present: anxious - Skin Skin exam: Present: warm ED Course Vital Signs 12/07/20 12/07/20 12/07/20 03:41 03:42 08:00 Temperature 97.4 F L Pulse Rate 73 112 H Respiratory 22 35 H Rate Blood Pressure 136/103 O2 Sat by Pulse 98 94 Oximetry 12/07/20 12/07/20 12/07/20 08:16 08:30 08:46 Temperature Pulse Rate 101 H 102 H 107 H Respiratory 13 27 H 19 Rate Blood Pressure 157/113 157/113 157/113 O2 Sat by Pulse 95 95 98 Oximetry 12/07/20 12/07/20 12/07/20 09:00 09:16 09:30 Temperature Pulse Rate 105 H Respiratory 29 H Rate Blood Pressure 146/95 146/103 146/103 O2 Sat by Pulse 97 97 98 Oximetry 12/07/20 09:46 Temperature Pulse Rate Respiratory Rate Blood Pressure 146/95 O2 Sat by Pulse 97 Oximetry - Reevaluation(s) Reevaluation #1: 12/07/20 10:06 Differential diagnosis, including but not limited to: Congestive heart failure, lower extremity edema, pneumonia, COVID-19 Assessment and plan: 40-year-old gentleman, who has physical exam evidence of radiographic evidence of volume overload, recently signed out from this hospital AGAINST MEDICAL ADVICE, with nonischemic cardiomyopathy, meets criteria for admission and hospitalization, secondary to acute volume overload, and decompensated congestive heart failure. Patient will be given high-dose diuretics. Patient will be also placed in the Covid pathway, and he will be ruled out for COVID-19. At one point time, O2 sat was 83%, started on 2 to 3 L of oxygen, O2 sat now 97%. Also be given empiric antibiotics, and steroids. The cardiology team, [facility] cardiology, is very familiar with this patient, IRAM Koehler [facility] has been contacted, and the cardiolo gy team will consult on the patient. Hospital physician, Dr. Styles, to admit patient to the medical service. I discussed this plan of care with the patient, who verbalized understanding, and is amenable to this plan of care. ED Medical Decision Making - Lab Data Result diagrams: 12/07/20 04:08 12/07/20 08:18 Vital Signs 12/07/20 12/07/20 03:41 03:42 Temperature 97.4 F L Pulse Rate 73 Respiratory 22 Rate Blood Pressure 136/103 O2 Sat by Pulse 98 Oximetry Lab Results 12/07/20 12/07/20 Range/Units 04:08 04:08 WBC 9.9 (4.5-11.0) K/mm3 RBC 3.43 L (3.65-5.03) M/mm3 Hgb 11.1 L (11.8-15.2) gm/dl Hct 33.0 L (35.5-45.6) % MCV 96 H (84-94) fl MCH 33 H (28-32) pg MCHC 34 (32-34) % RDW 17.3 H (13.2-15.2) % Plt Count 247 (140-440) K/mm3 Lymph % (Auto) 7.7 L (13.4-35.0) % [place] % (Auto) 9.2 H (0.0-7.3) % Eos % (Auto) 0.2 (0.0-4.3) % Baso % (Auto) 0.5 (0.0-1.8) % Lymph # (Auto) 0.8 L (1.2-5.4) K/mm3 [place] # (Auto) 0.9 H (0.0-0.8) K/mm3 Eos # (Auto) 0.0 (0.0-0.4) K/mm3 Baso # (Auto) 0.0 (0.0-0.1) K/mm3 Seg Neutrophils % 82.4 H (40.0-70.0) % Seg Neutrophils # 8.1 H (1.8-7.7) K/mm3 Sodium 139 (137-145) mmol/L Potassium 4.6 (3.6-5.0) mmol/L Chloride 102.5 (98-107) mmol/L Carbon Dioxide 26 (22-30) mmol/L Anion Gap 15 mmol/L BUN 28 H (9-20) mg/dL Creatinine 1.3 (0.8-1.3) mg/dL Estimated GFR > 60 ml/min BUN/Creatinine Ratio 22 % Glucose 138 H (75-100) mg/dL Calcium 8.4 (8.4-10.2) mg/dL Total Bilirubin 0.80 (0.1-1.2) mg/dL AST 33 (5-40) units/L ALT 54 (7-56) units/L Alkaline Phosphatase 214 H (35-129) units/L Total Protein 5.7 L (6.3-8.2) g/dL Albumin 3.2 L (3.9-5) g/dL Albumin/Globulin Ratio 1.3 % Lab Results 12/07/20 12/07/20 12/07/20 Range/Units 04:08 04:08 08:18 WBC 9.9 (4.5-11.0) K/mm3 RBC 3.43 L (3.65-5.03) M/mm3 Hgb 11.1 L (11.8-15.2) gm/dl Hct 33.0 L (35.5-45.6) % MCV 96 H (84-94) fl MCH 33 H (28-32) pg MCHC 34 (32-34) % RDW 17.3 H (13.2-15.2) % Plt Count 247 (140-440) K/mm3 Lymph % (Auto) 7.7 L (13.4-35.0) % [place] % (Auto) 9.2 H (0.0-7.3) % Eos % (Auto) 0.2 (0.0-4.3) % Baso % (Auto) 0.5 (0.0-1.8) % Lymph # (Auto) 0.8 L (1.2-5.4) K/mm3 [place] # (Auto) 0.9 H (0.0-0.8) K/mm3 Eos # (Auto) 0.0 (0.0-0.4) K/mm3 Baso # (Auto) 0.0 (0.0-0.1) K/mm3 Seg Neutrophils % 82.4 H (40.0-70.0) % Seg Neutrophils # 8.1 H (1.8-7.7) K/mm3 D-Dimer (0-234) ng/mlDDU Sodium 139 (137-145) mmol/L Potassium 4.6 (3.6-5.0) mmol/L Chloride 102.5 (98-107) mmol/L Carbon Dioxide 26 (22-30) mmol/L Anion Gap 15 mmol/L BUN 28 H (9-20) mg/dL Creatinine 1.3 (0.8-1.3) mg/dL Estimated GFR > 60 ml/min BUN/Creatinine Ratio 22 % Glucose 138 H (75-100) mg/dL Lactic Acid (0.7-2.0) mmol/L Calcium 8.4 (8.4-10.2) mg/dL Magnesium (1.7-2.3) mg/dL Ferritin (30.0-300.0) ng/mL Total Bilirubin 0.80 (0.1-1.2) mg/dL AST 33 (5-40) units/L ALT 54 (7-56) units/L Alkaline Phosphatase 214 H (35-129) units/L Lactate Dehydrogenase (91-180) units/L Total Creatine Kinase (55-170) units/L Troponin T 0.088 H (0.00-0.029) ng/mL C-Reactive Protein (0.00-1.30) mg/dL NT-Pro-B Natriuret Pep (0-450) pg/mL Total Protein 5.7 L (6.3-8.2) g/dL Albumin 3.2 L (3.9-5) g/dL Albumin/Globulin Ratio 1.3 % Triglycerides 178 H (2-149) mg/dL Cholesterol 138 (50-199) mg/dL LDL Cholesterol Direct 61 (50-130) mg/dL HDL Cholesterol 51 (40-59) mg/dL Cholesterol/HDL Ratio 2.70 % 12/07/20 12/07/20 12/07/20 Range/Units 08:18 08:18 08:18 WBC (4.5-11.0) K/mm3 RBC (3.65-5.03) M/mm3 Hgb (11.8-15.2) gm/dl Hct (35.5-45.6) % MCV (84-94) fl MCH (28-32) pg MCHC (32-34) % RDW (13.2-15.2) % Plt Count (140-440) K/mm3 Lymph % (Auto) (13.4-35.0) % [place] % (Auto) (0.0-7.3) % Eos % (Auto) (0.0-4.3) % Baso % (Auto) (0.0-1.8) % Lymph # (Auto) (1.2-5.4) K/mm3 [place] # (Auto) (0.0-0.8) K/mm3 Eos # (Auto) (0.0-0.4) K/mm3 Baso # (Auto) (0.0-0.1) K/mm3 Seg Neutrophils % (40.0-70.0) % Seg Neutrophils # (1.8-7.7) K/mm3 D-Dimer 1143.29 H (0-234) ng/mlDDU Sodium (137-145) mmol/L Potassium (3.6-5.0) mmol/L Chloride (98-107) mmol/L Carbon Dioxide (22-30) mmol/L Anion Gap mmol/L BUN (9-20) mg/dL Creatinine (0.8-1.3) mg/dL Estimated GFR ml/min BUN/Creatinine Ratio % Glucose 129 H (75-100) mg/dL Lactic Acid (0.7-2.0) mmol/L Calcium (8.4-10.2) mg/dL Magnesium 2.10 (1.7-2.3) mg/dL Ferritin (30.0-300.0) ng/mL Total Bilirubin (0.1-1.2) mg/dL AST (5-40) units/L ALT (7-56) units/L Alkaline Phosphatase (35-129) units/L Lactate Dehydrogenase 543 H (91-180) units/L Total Creatine Kinase 96 (55-170) units/L Troponin T (0.00-0.029) ng/mL C-Reactive Protein 0.90 (0.00-1.30) mg/dL NT-Pro-B Natriuret Pep 26684 H (0-450) pg/mL Total Protein (6.3-8.2) g/dL Albumin (3.9-5) g/dL Albumin/Globulin Ratio % Triglycerides (2-149) mg/dL Cholesterol (50-199) mg/dL LDL Cholesterol Direct (50-130) mg/dL HDL Cholesterol (40-59) mg/dL Cholesterol/HDL Ratio % 12/07/20 12/07/20 Range/Units 08:18 08:18 WBC (4.5-11.0) K/mm3 RBC (3.65-5.03) M/mm3 Hgb (11.8-15.2) gm/dl Hct (35.5-45.6) % MCV (84-94) fl MCH (28-32) pg MCHC (32-34) % RDW (13.2-15.2) % Plt Count (140-440) K/mm3 Lymph % (Auto) (13.4-35.0) % [place] % (Auto) (0.0-7.3) % Eos % (Auto) (0.0-4.3) % Baso % (Auto) (0.0-1.8) % Lymph # (Auto) (1.2-5.4) K/mm3 [place] # (Auto) (0.0-0.8) K/mm3 Eos # (Auto) (0.0-0.4) K/mm3 Baso # (Auto) (0.0-0.1) K/mm3 Seg Neutrophils % (40.0-70.0) % Seg Neutrophils # (1.8-7.7) K/mm3 D-Dimer (0-234) ng/mlDDU Sodium (137-145) mmol/L Potassium (3.6-5.0) mmol/L Chloride (98-107) mmol/L Carbon Dioxide (22-30) mmol/L Anion Gap mmol/L BUN (9-20) mg/dL Creatinine (0.8-1.3) mg/dL Estimated GFR ml/min BUN/Creatinine Ratio % Glucose (75-100) mg/dL Lactic Acid 1.50 (0.7-2.0) mmol/L Calcium (8.4-10.2) mg/dL Magnesium (1.7-2.3) mg/dL Ferritin 390.3 H (30.0-300.0) ng/mL Total Bilirubin (0.1-1.2) mg/dL AST (5-40) units/L ALT (7-56) units/L Alkaline Phosphatase (35-129) units/L Lactate Dehydrogenase (91-180) units/L Total Creatine Kinase (55-170) units/L Troponin T (0.00-0.029) ng/mL C-Reactive Protein (0.00-1.30) mg/dL NT-Pro-B Natriuret Pep (0-450) pg/mL Total Protein (6.3-8.2) g/dL Albumin (3.9-5) g/dL Albumin/Globulin Ratio % Triglycerides (2-149) mg/dL Cholesterol (50-199) mg/dL LDL Cholesterol Direct (50-130) mg/dL HDL Cholesterol (40-59) mg/dL Cholesterol/HDL Ratio % Vital Signs 12/07/20 12/07/20 12/07/20 03:41 03:42 08:00 Temperature 97.4 F L Pulse Rate 73 112 H Respiratory 22 35 H Rate Blood Pressure 136/103 O2 Sat by Pulse 98 94 Oximetry 12/07/20 12/07/20 12/07/20 08:16 08:30 08:46 Temperature Pulse Rate 101 H 102 H 107 H Respiratory 13 27 H 19 Rate Blood Pressure 157/113 157/113 157/113 O2 Sat by Pulse 95 95 98 Oximetry 12/07/20 12/07/20 12/07/20 09:00 09:16 09:30 Temperature Pulse Rate 105 H Respiratory 29 H Rate Blood Pressure 146/95 146/103 146/103 O2 Sat by Pulse 97 97 98 Oximetry 12/07/20 09:46 Temperature Pulse Rate Respiratory Rate Blood Pressure 146/95 O2 Sat by Pulse 97 Oximetry - EKG Data -: EKG Interpreted by Id EKG shows normal: sinus rhythm Rate: normal - EKG Data 12/07/20 10:01 EKG interpreted at 04: 27 Sinus rhythm, tachycardia, 107 bpm. Left axis deviation, left anterior fascicular block, motion artifact. The QTC is prolonged. This is an abnormal EKG. This is not a STEMI. This appears to be grossly unchanged from prior EKG from November 21, 2020 - Radiology Data Radiology results: report reviewed, image reviewed CHEST 1 VIEW INDICATION: CP pawel. COMPARISON: 11/24/2020 FINDINGS: Support devices: None. Heart: Enlarged, unchanged. Lungs/Pleura: There are diffuse bilateral pulmonary opacities. No significant effusion, no pneumothorax. IMPRESSION: 1. Given the cardiomegaly, diffuse bilateral pulmonary opacities may be due to pulmonary edema. However, no pleural effusion is seen. Signer Name: Dany Desouza MD Signed: 12/07/2020 3:09 AM Workstation Name: [id number] Critical Care Time: Yes Critical care time in (mins) excluding proc time.: 35 Critical care attestation.: If time is entered above; I have spent that time in minutes in the direct care of this critically ill patient, excluding procedure time. ED Disposition Clinical Impression: Noncompliance with medication regimen, Congestive heart failure, acute, NICM (nonischemic cardiomyopathy), Cardiomyopathy, Lower extremity edema, Suspected 2019 novel coronavirus infection Obesity Qualifiers: Obesity type: due to excess calories Disposition: DC-09 OP ADMIT IP TO THIS HOSP Is pt being admited?: Yes Does the pt Need Aspirin: No Condition: Fair
[2020-12-07] MEDS ORDERED: cefTRIAXone/NS 1 GM/50 ML 1 GM/50 ML BAG IV ONE (08:30)
--- NOTE | 2020-12-07 08:33 | History and Physical Report ---
History of Present Illness Date of examination: 12/07/20 Date of admission: 12/07/20 Chief complaint: sob History of present illness: 40 y.o. male with a past medical hx of COPD, NICMP (EF 35-40% on echo 09/2019), chronic HFrEF, HTN, GERD, and tobacco abuse who presents through the emergency department with complaints of shortness of breath for the past 12 to 24 hours. Patient had a recent hospitalization here approximately 2 weeks ago with acute on chronic heart failure. Echocardiogram completed on 11/21/2020 revealed EF 20- 25%. LV: mod dilated, Mild concentric LVH, Severe hypokinesis, severe dyastolic dysfunction (restrictive pattern). RV mod dilated. RV mildly hypokinetic. Mild MR. Mod TR. RVSP 43. Patient reports that he has been taking his medications but despite his compliance has noticed still shortness of breath and lower extremity swelling. Patient denies any chest pain. No headache or visual disturbances. No cough or cold-like symptoms. . Past History Past Medical History: heart failure, hypertension, other (Severe protein calorie malnutrition) Past Surgical History: No surgical history Social history: smoking Family history: no significant family history Medications and Allergies Allergies Allergy/AdvReac Type Severity Reaction Status Date / Time No Known Allergies Allergy Verified 06/16/18 18:08 Home Medications Medication Instructions Recorded Confirmed Last Taken Type Aspirin [Aspirin BABY CHEW TAB] 81 mg PO QDAY 100 Days #30 tab.chew 06/24/20 11/21/20 Unknown Rx Folic Acid [Folvite] 1 mg PO QDAY #30 tablet 06/24/20 11/21/20 Unknown Rx carvediloL [Coreg] 12.5 mg PO BID 30 Days #60 tablet 06/24/20 11/21/20 Unknown Rx methOCARBAMOL [Robaxin TAB] 750 mg PO Q8H PRN #90 tablet 06/24/20 11/21/20 Unknown Rx Furosemide [Lasix TAB] 40 mg PO BID 11/21/20 11/21/20 Unknown History Hydralazine HCl 50 mg PO BID 11/21/20 11/21/20 Unknown History Spironolactone [Aldactone] 25 mg PO QDAY 11/21/20 11/21/20 Unknown History methOCARBAMOL [Robaxin TAB] 1 tab PO Q8HR PRN 11/21/20 11/21/20 Unknown History Active Meds: Active Medications Azithromycin (Zithromax/Ns) 500 mg in 250 mls @ 250 mls/hr IV ONCE ONE; Protocol Stop: 12/07/20 08:58 Ceftriaxone Sodium (Rocephin/Ns 1 Gm/50 Ml) 1 gm in 50 mls @ 100 mls/hr IV ONCE ONE Stop: 12/07/20 08:59 Last Admin: 12/07/20 08:17 Dose: 100 mls/hr Documented by: Review of Systems All systems: negative Exam - Constitutional Vitals: Temp Pulse Resp BP Pulse Ox 97.4 F L 73 22 136/103 98 12/07/20 03:41 12/07/20 03:41 12/07/20 03:41 12/07/20 03:41 12/07/20 03:42 General appearance: Present: no acute distress, well-nourished - EENT Eyes: Present: PERRL ENT: hearing intact, clear oral mucosa - Neck Neck: Present: supple, normal ROM - Respiratory Respiratory effort: normal Respiratory: bilateral: CTA - Cardiovascular Heart Sounds: Present: S1 & S2. Absent: rub, click - Extremities Extremities: pulses symmetrical, No edema Peripheral Pulses: within normal limits - Abdominal General gastrointestinal: Present: soft, non-tender, non-distended, normal bowel sounds Male genitourinary: Present: normal - Integumentary Integumentary: Present: clear, warm, dry - Musculoskeletal Musculoskeletal: gait normal, strength equal bilaterally - Psychiatric Psychiatric: appropriate mood/affect, intact judgment & insight - Neurologic Neurologic: CNII-XII intact, moves all extremities Results - Labs CBC & Chem 7: 12/07/20 04:08 12/07/20 04:08 Labs: Laboratory Last Values WBC 9.9 K/mm3 (4.5-11.0) 12/07/20 04:08 RBC 3.43 M/mm3 (3.65-5.03) L 12/07/20 04:08 Hgb 11.1 gm/dl (11.8-15.2) L 12/07/20 04:08 Hct 33.0 % (35.5-45.6) L 12/07/20 04:08 MCV 96 fl (84-94) H 12/07/20 04:08 MCH 33 pg (28-32) H 12/07/20 04:08 MCHC 34 % (32-34) 12/07/20 04:08 RDW 17.3 % (13.2-15.2) H 12/07/20 04:08 Plt Count 247 K/mm3 (140-440) 12/07/20 04:08 Lymph % (Auto) 7.7 % (13.4-35.0) L 12/07/20 04:08 [place] % (Auto) 9.2 % (0.0-7.3) H 12/07/20 04:08 Eos % (Auto) 0.2 % (0.0-4.3) 12/07/20 04:08 Baso % (Auto) 0.5 % (0.0-1.8) 12/07/20 04:08 Lymph # (Auto) 0.8 K/mm3 (1.2-5.4) L 12/07/20 04:08 [place] # (Auto) 0.9 K/mm3 (0.0-0.8) H 12/07/20 04:08 Eos # (Auto) 0.0 K/mm3 (0.0-0.4) 12/07/20 04:08 Baso # (Auto) 0.0 K/mm3 (0.0-0.1) 12/07/20 04:08 Seg Neutrophils % 82.4 % (40.0-70.0) H 12/07/20 04:08 Seg Neutrophils # 8.1 K/mm3 (1.8-7.7) H 12/07/20 04:08 Sodium 139 mmol/L (137-145) 12/07/20 04:08 Potassium 4.6 mmol/L (3.6-5.0) 12/07/20 04:08 Chloride 102.5 mmol/L (98-107) 12/07/20 04:08 Carbon Dioxide 26 mmol/L (22-30) 12/07/20 04:08 Anion Gap 15 mmol/L 12/07/20 04:08 BUN 28 mg/dL (9-20) H 12/07/20 04:08 Creatinine 1.3 mg/dL (0.8-1.3) 12/07/20 04:08 Estimated GFR > 60 ml/min 12/07/20 04:08 BUN/Creatinine Ratio 22 % 12/07/20 04:08 Glucose 138 mg/dL (75-100) H 12/07/20 04:08 Calcium 8.4 mg/dL (8.4-10.2) 12/07/20 04:08 Total Bilirubin 0.80 mg/dL (0.1-1.2) 12/07/20 04:08 AST 33 units/L (5-40) 12/07/20 04:08 ALT 54 units/L (7-56) 12/07/20 04:08 Alkaline Phosphatase 214 units/L (35-129) H 12/07/20 04:08 Total Protein 5.7 g/dL (6.3-8.2) L 12/07/20 04:08 Albumin 3.2 g/dL (3.9-5) L 12/07/20 04:08 Albumin/Globulin Ratio 1.3 % 12/07/20 04:08 Assessment and Plan Assessment and plan: Acute on chronic HFrEF. Nonischemic cardiomyopathy. Cardiac catheterization on 11/30/2020 revealed no angiographic evidence of significant epicardial coronary disease and severe global left ventricular hypokinesis with EF of 20 to 25%. No evidence of aortic stenosis and moderately elevated LVEDP. Hypertension COPD Obesity. Plan: Patient will be admitted to telemetry floor and placed on the CHF pathway/protocol. Patient received IV diuresis and resume home medications. Cardiology consultation pending.
[2020-12-07] MEDS ORDERED: ONDANSETRON 4 MG/2 ML INJ IV PRN (08:38)
[2020-12-07] MEDS ORDERED: ACETAMINOPHEN 325 MG TAB PO PRN (09:00)
[2020-12-07 09:08] LABS: C-Reactive Protein 0.9 mg/dL (0.00-1.30)
[2020-12-07 09:35] LABS: Chol/HDL Ratio 2.7 %
[2020-12-07] MEDS ORDERED: hydrALAZINE 25 MG TAB PO SCH (10:00)
[2020-12-07] MEDS ORDERED: carvediloL 12.5 MG TAB PO SCH ×2 (10:00→14:42)
[2020-12-07] MEDS ORDERED: NON-FORMULARY EACH (Hydralazine Hcl [Hydralazine Hcl] 50 MG Tablet) PO SCH (10:00)
--- NOTE | 2020-12-07 10:10 | Electrocardiograph Report ---
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
[2020-12-07] MEDS: FOLIC ACID 1 MG TAB PO SCH (10:26)
[2020-12-07] MEDS: SPIRONOLACTONE 25 MG TAB PO SCH (10:26)
--- NOTE | 2020-12-07 14:17 | Consultation ---
History of Present Illness Consult date: 12/07/20 Requesting physician: MARCELLA SIDDIQUI Consult reason: congestive heart failure History of present illness: The pt is a 39 YO male with a past medical history of HFrEF, dilated NICMP, normal coronaries via C 11/30/2020, HTN, COPD, tobacco use. He is followed in our office by Dr. Lopez. He presented with c/o progressively worsening SOB, orthopnea, BLE swelling for several weeks prior to arrival. Pt denies any chest pain, palpitations, n/v, diaphoresis, dizziness or syncope. CXR shows diffuse bilateral pulmonary opacities which are likely due to pulmonary edema, however, pt admitted as COVID-19 PUI and COVID testing has been ordered per primary. Of note, pt was admitted to [facility] earlier this month for eval/management of HFrEF and suspected RLE cellulitis. TTE done 11/21/2020 showed EF 20-25%. Pt underwent LHC 11/30/2020 which showed normal coronaries, EF 20-25% with moderately elevated LVEDP. Following LHC, additional diuresis and LifeVest placement was recommended. However, pt left AGAINST MEDICAL ADVICE because reportedly had to "take care of urgent business." Pt stated that he intended to return to the ospital later that day for completion of treatment but ultimately did not. Past History Past Medical History: heart failure, hypertension, other (as per HPI) Past Surgical History: No surgical history Social history: smoking Family history: no significant family history Medications and Allergies Allergies Allergy/AdvReac Type Severity Reaction Status Date / Time No Known Allergies Allergy Verified 06/16/18 18:08 Home Medications Medication Instructions Recorded Confirmed Last Taken Type Aspirin [Aspirin BABY CHEW TAB] 81 mg PO QDAY 100 Days #30 tab.chew 06/24/20 11/21/20 Unknown Rx Folic Acid [Folvite] 1 mg PO QDAY #30 tablet 06/24/20 11/21/20 Unknown Rx carvediloL [Coreg] 12.5 mg PO BID 30 Days #60 tablet 06/24/20 11/21/20 Unknown Rx methOCARBAMOL [Robaxin TAB] 750 mg PO Q8H PRN #90 tablet 06/24/20 11/21/20 Unknown Rx Furosemide [Lasix TAB] 40 mg PO BID 11/21/20 11/21/20 Unknown History Hydralazine HCl 50 mg PO BID 11/21/20 11/21/20 Unknown History Spironolactone [Aldactone] 25 mg PO QDAY 11/21/20 11/21/20 Unknown History methOCARBAMOL [Robaxin TAB] 1 tab PO Q8HR PRN 11/21/20 11/21/20 Unknown History Active Meds: Active Medications Acetaminophen (Acetaminophen 325 Mg Tab) 650 mg PO Q4H PRN PRN Reason: Pain MILD(1-3)/Fever >100.5/YU Aspirin (Aspirin 81 Mg Tab Chew) 81 mg PO QDAY [facility] Carvedilol (Carvedilol 12.5 Mg Tab) 12.5 mg PO BID [facility] Last Admin: 12/07/20 10:26 Dose: 12.5 mg Documented by: Enoxaparin Sodium (Enoxaparin 30 Mg/0.3 Ml Inj) 30 mg SUB-Q QHS [facility]; Protocol Folic Acid (Folic Acid 1 Mg Tab) 1 mg PO QDAY [facility] Last Admin: 12/07/20 10:26 Dose: 1 mg Documented by: Furosemide (Furosemide 40 Mg/4 Ml Inj) 40 mg IV BID@0600,1800 [facility] Hydralazine HCl (Hydralazine 25 Mg Tab) 50 mg PO BID [facility] Last Admin: 12/07/20 10:26 Dose: 50 mg Documented by: Methocarbamol (Methocarbamol 750 Mg Tab) 750 mg PO Q8H PRN PRN Reason: Muscle Spasm Ondansetron HCl (Ondansetron 4 Mg/2 Ml Inj) 4 mg IV Q8H PRN PRN Reason: Nausea And Vomiting Sodium Chloride (Sodium Chloride 0.9% 10 Ml Flush Syringe) 10 ml IV BID [facility] Last Admin: 12/07/20 10:27 Dose: 10 ml Documented by: Sodium Chloride (Sodium Chloride 0.9% 10 Ml Flush Syringe) 10 ml IV PRN PRN PRN Reason: LINE FLUSH Spironolactone (Spironolactone 25 Mg Tab) 25 mg PO QDAY [facility] Last Admin: 12/07/20 10:26 Dose: 25 mg Documented by: Review of Systems Constitutional: weight gain, no fever, no chills, no sweats Ears, nose, mouth and throat: no ear pain, no nose pain, no sinus pressure, no sinus pain Cardiovascular: orthopnea, edema, shortness of breath, dyspnea on exertion, paroxysmal nocturnal dyspnea, high blood pressure, leg edema, decreased exercise tolerance, no chest pain, no palpitations, no rapid/irregular heart beat, no syncope, no lightheadedness Respiratory: shortness of breath, dyspnea on exertion, no cough, no congestion, no wheezing, no pain on inspiration Gastrointestinal: no abdominal pain, no nausea, no vomiting, no diarrhea, no constipation, no change in bowel habits, no other (abdominal swelling) Genitourinary Male: no dysuria, no hematuria, no flank pain, no discharge, no urinary frequency, no urinary hesitancy Musculoskeletal: no neck stiffness, no neck pain, no shooting arm pain, no arm numbness/tingling, no low back pain Integumentary: no pruritis Neurological: no head injury, no paralysis, no weakness, no parathesias, no numbness, no tingling, no seizures, no syncope Psychiatric: no anxiety Endocrine: no cold intolerance, no heat intolerance Hematologic/Lymphatic: no easy bruising, no easy bleeding Allergic/Immunologic: no urticaria Physical Examination Vital Signs Temp Pulse Resp BP 97.4 F L 73 22 136/103 12/07/20 03:41 12/07/20 03:41 12/07/20 03:41 12/07/20 03:41 General appearance: no acute distress HEENT: Positive: PERRL, Normocephaly, Mucus Membranes Moist Neck: Positive: neck supple, trachea midline Cardiac: Positive: Reg Rate and Rhythm, S1/S2 Lungs: Positive: Decreased Breath Sounds Neuro: Positive: Grossly Intact Abdomen: Positive: Active Bowel Sounds, Other (abdominal swelling). Negative: Tender Skin: Negative: Rash Extremities: Present: +2 Edema (RLE > LLE) Results 12/07/20 04:08 12/07/20 08:18 Cardiac Enzymes 12/07/20 12/07/20 Range/Units 04:08 08:18 AST 33 (5-40) units/L Lactate Dehydrogenase 543 H (91-180) units/L Lipids 12/07/20 Range/Units 08:18 Triglycerides 178 H (2-149) mg/dL Cholesterol 138 (50-199) mg/dL HDL Cholesterol 51 (40-59) mg/dL Cholesterol/HDL Ratio 2.70 % CBC 12/07/20 Range/Units 04:08 WBC 9.9 (4.5-11.0) K/mm3 RBC 3.43 L (3.65-5.03) M/mm3 Hgb 11.1 L (11.8-15.2) gm/dl Hct 33.0 L (35.5-45.6) % Plt Count 247 (140-440) K/mm3 Lymph # (Auto) 0.8 L (1.2-5.4) K/mm3 [place] # (Auto) 0.9 H (0.0-0.8) K/mm3 Eos # (Auto) 0.0 (0.0-0.4) K/mm3 Baso # (Auto) 0.0 (0.0-0.1) K/mm3 Comprehensive Metabolic Panel 12/07/20 12/07/20 Range/Units 04:08 08:18 Sodium 139 (137-145) mmol/L Potassium 4.6 (3.6-5.0) mmol/L Chloride 102.5 (98-107) mmol/L Carbon Dioxide 26 (22-30) mmol/L BUN 28 H (9-20) mg/dL Creatinine 1.3 (0.8-1.3) mg/dL Glucose 138 H 129 H (75-100) mg/dL Calcium 8.4 (8.4-10.2) mg/dL AST 33 (5-40) units/L ALT 54 (7-56) units/L Alkaline Phosphatase 214 H (35-129) units/L Total Protein 5.7 L (6.3-8.2) g/dL Albumin 3.2 L (3.9-5) g/dL - Imaging and Cardiology Echo: report reviewed (11/21/2020: EF 20-25%, LV mod dilated, RV mod dilated, mild LVH, LA and RA mod dilated, mild MR, mod TR, mild pulm HTN RVSP 43mmHg) Cardiac cath: report reviewed (11/30/2020 which showed normal coronaries, EF 20- 25%) EKG: report reviewed, image reviewed EKG interpretations - Telemetry EKG Rhythm: Sinus Rhythm - EKG Sinus rhythms and dysrhythmias: sinus rhythm Assessment and Plan Cont coreg, lisinopril, aldactone, IV lasix BID. F/u BMP in AM. DDimer elevated - BLE venous and arterial studies done 11/22/2020 were negative for significant findings, recommend further eval/management (?chest CTA r/o PE) per primary team. Will follow. The patient has been seen in conjunction with Dr. Perdomo who agrees with the assessment and plan of care. - Patient Problems (1) Acute on chronic HFrEF (heart failure with reduced ejection fraction) Current Visit: Yes Status: Acute (2) NICM (nonischemic cardiomyopathy) Current Visit: Yes Status: Chronic (3) Normal coronary arteries Current Visit: Yes Status: Chronic (4) Person under investigation for COVID-19 Current Visit: Yes Status: Acute (5) Noncompliance with medication regimen Current Visit: Yes Status: Chronic (6) HTN (hypertension) Current Visit: Yes Status: Chronic Qualifiers: Hypertension type: essential hypertension Qualified Code(s): I10 - Essential (primary) hypertension (7) COPD (chronic obstructive pulmonary disease) Current Visit: Yes Status: Chronic (8) Elevated troponin Current Visit: Yes Status: Acute Plan to address problem: nonspecific (9) Tobacco use Current Visit: Yes Status: Chronic Plan to address problem: cessation encouraged (10) Elevated d-dimer Current Visit: Yes Status: Acute
[2020-12-07] MEDS ORDERED: carvediloL 12.5 MG TAB PO NR (15:30)
[2020-12-07] MEDS: LISINOPRIL 10 MG TAB PO SCH (17:36)
[2020-12-07] MEDS: FUROSEMIDE 40 MG/4 ML INJ IV SCH (17:37)
[2020-12-07] MEDS ORDERED: ENOXAPARIN 30 MG/0.3 ML INJ SUB-Q SCH (22:00)
[2020-12-07] MEDS: carvediloL 25 MG TAB PO SCH (22:34)
[2020-12-08] MEDS: FUROSEMIDE 40 MG/4 ML INJ IV SCH ×2 (05:29→17:40)
[2020-12-08 06:34] LABS: Hematocrit 27.9 % (35.5-45.6); Hemoglobin 9.5 gm/dl (11.8-15.2); Mean Corpuscular HGB Conc 34 % (32-34); Mean Corpuscular Volume 97 fl (84-94); Platelet Count 205 K/mm3 (140-440); Red Blood Count 2.88 M/mm3 (3.65-5.03); Red Cell Distribution Width 17.3 % (13.2-15.2)
[2020-12-08 06:49] LABS: BUN/Creatinine Ratio 21; Blood Urea Nitrogen 29 mg/dL (9-20); Calcium 8.1 mg/dL (8.4-10.2); Hemolysis Index 3
[2020-12-08 07:02] LABS: Basophils % (Auto) 0.4 % (0.0-1.8); Eosinophils % (Auto) 0.5 % (0.0-4.3); Lymphocytes # (Auto) 0.5 K/mm3 (1.2-5.4); Monocytes # (Auto) 0.7 K/mm3 (0.0-0.8); Monocytes % (Auto) 9.7 % (0.0-7.3)
--- NOTE | 2020-12-08 09:23 | Progress Note ---
Assessment and Plan Assessment and plan: The pt is a 39 YO male with a past medical history of HFrEF, dilated NICMP, normal coronaries via LHC 11/30/2020, HTN, COPD, tobacco use. He is followed in our office by Dr. Lopez. He presented with c/o progressively worsening SOB, orthopnea, BLE swelling for several weeks prior to arrival. Pt denies any chest pain, palpitations, n/v, diaphoresis, dizziness or syncope. CXR shows diffuse bilateral pulmonary opacities which are likely due to pulmonary edema, however, pt admitted as COVID-19 PUI and COVID testing has been ordered per primary. Of note, pt was admitted to [facility] earlier this month for eval/management of HFrEF and suspected RLE cellulitis. TTE done 11/21/2020 showed EF 20-25%. Pt underwent LHC 11/30/2020 which showed normal coronaries, EF 20-25% with moderately elevated LVEDP. Following LHC, additional diuresis and LifeVest placement was recommended. However, pt left AGAINST MEDICAL ADVICE because reportedly had to "take care of urgent business." Pt stated that he intended to return to the hospital later that day for completion of treatment but ultimately did not. Acute on chronic HFrEF. Nonischemic cardiomyopathy. Cardiac catheterization on 11/30/2020 revealed no angiographic evidence of significant epicardial coronary disease and severe global left ventricular hypokinesis with EF of 20 to 25%. No evidence of aortic stenosis and moderately elevated LVEDP. Hypertension COPD Obesity. 12/07: Patient will be admitted to telemetry floor and placed on the CHF pathway/protocol. Patient received IV diuresis and resume home medications. Cardiology consultation pending. 12/08: Continue Coreg, lisinopril, Aldactone and IV Lasix twice daily. Continue to follow BMP. BNP extremely elevated greater than 46,000. Continue GDMT for heart failure per cardiology recommendations. Check VQ scan given elevated D- dimer and elevated creatinine. History Interval history: No new issues overnight. Hospitalist Physical - Constitutional Vitals: Temp Pulse Resp BP Pulse Ox 98.5 F 80 18 98/59 96 12/08/20 03:34 12/08/20 03:34 12/08/20 03:34 12/08/20 03:34 12/08/20 09:15 General appearance: Present: no acute distress - EENT Eyes: Present: PERRL, EOM intact ENT: hearing intact, clear oral mucosa, dentition normal - Neck Neck: Present: supple, normal ROM - Respiratory Respiratory effort: normal Respiratory: bilateral: CTA - Cardiovascular Rhythm: regular Heart Sounds: Present: S1 & S2. Absent: gallop, rub - Extremities Extremities: no ischemia, No edema, Full ROM - Abdominal General gastrointestinal: soft, non-tender, non-distended, normal bowel sounds - Integumentary Integumentary: Present: clear, warm, dry - Neurologic Neurologic: CNII-XII intact, moves all extremities HEART Score - HEART Score Troponin: Troponin T 0.080 ng/mL (0.00-0.029) H 12/08/20 06:19 Results - Labs CBC & Chem 7: 12/08/20 06:19 12/08/20 06:19 Labs: Laboratory Last Values WBC 7.6 K/mm3 (4.5-11.0) 12/08/20 06:19 RBC 2.88 M/mm3 (3.65-5.03) L 12/08/20 06:19 Hgb 9.5 gm/dl (11.8-15.2) L 12/08/20 06:19 Hct 27.9 % (35.5-45.6) L 12/08/20 06:19 MCV 97 fl (84-94) H 12/08/20 06:19 MCH 33 pg (28-32) H 12/08/20 06:19 MCHC 34 % (32-34) 12/08/20 06:19 RDW 17.3 % (13.2-15.2) H 12/08/20 06:19 Plt Count 205 K/mm3 (140-440) 12/08/20 06:19 Lymph % (Auto) 7.0 % (13.4-35.0) L 12/08/20 06:19 [place] % (Auto) 9.7 % (0.0-7.3) H 12/08/20 06:19 Eos % (Auto) 0.5 % (0.0-4.3) 12/08/20 06:19 Baso % (Auto) 0.4 % (0.0-1.8) 12/08/20 06:19 Lymph # (Auto) 0.5 K/mm3 (1.2-5.4) L 12/08/20 06:19 [place] # (Auto) 0.7 K/mm3 (0.0-0.8) 12/08/20 06:19 Eos # (Auto) 0.0 K/mm3 (0.0-0.4) 12/08/20 06:19 Baso # (Auto) 0.0 K/mm3 (0.0-0.1) 12/08/20 06:19 Seg Neutrophils % 82.4 % (40.0-70.0) H 12/08/20 06:19 Seg Neutrophils # 6.4 K/mm3 (1.8-7.7) 12/08/20 06:19 D-Dimer 1143.29 ng/mlDDU (0-234) H 12/07/20 08:18 Sodium 144 mmol/L (137-145) 12/08/20 06:19 Potassium 3.9 mmol/L (3.6-5.0) 12/08/20 06:19 Chloride 107.4 mmol/L (98-107) H 12/08/20 06:19 Carbon Dioxide 28 mmol/L (22-30) 12/08/20 06:19 Anion Gap 13 mmol/L 12/08/20 06:19 BUN 29 mg/dL (9-20) H 12/08/20 06:19 Creatinine 1.4 mg/dL (0.8-1.3) H 12/08/20 06:19 Estimated GFR > 60 ml/min 12/08/20 06:19 BUN/Creatinine Ratio 21 % 12/08/20 06:19 Glucose 132 mg/dL (75-100) H 12/08/20 06:19 Lactic Acid 1.50 mmol/L (0.7-2.0) 12/07/20 08:18 Calcium 8.1 mg/dL (8.4-10.2) L 12/08/20 06:19 Magnesium 2.10 mg/dL (1.7-2.3) 12/07/20 08:18 Ferritin 390.3 ng/mL (30.0-300.0) H 12/07/20 08:18 Total Bilirubin 0.80 mg/dL (0.1-1.2) 12/07/20 04:08 AST 33 units/L (5-40) 12/07/20 04:08 ALT 54 units/L (7-56) 12/07/20 04:08 Alkaline Phosphatase 214 units/L (35-129) H 12/07/20 04:08 Lactate Dehydrogenase 543 units/L (91-180) H 12/07/20 08:18 Total Creatine Kinase 96 units/L (55-170) 12/07/20 08:18 Troponin T 0.080 ng/mL (0.00-0.029) H 12/08/20 06:19 C-Reactive Protein 0.90 mg/dL (0.00-1.30) 12/07/20 08:18 NT-Pro-B Natriuret Pep 34835 pg/mL (0-450) H 12/07/20 08:18 Total Protein 5.7 g/dL (6.3-8.2) L 12/07/20 04:08 Albumin 3.2 g/dL (3.9-5) L 12/07/20 04:08 Albumin/Globulin Ratio 1.3 % 12/07/20 04:08 Triglycerides 178 mg/dL (2-149) H 12/07/20 08:18 Cholesterol 138 mg/dL (50-199) 12/07/20 08:18 LDL Cholesterol Direct 61 mg/dL (50-130) 12/07/20 08:18 HDL Cholesterol 51 mg/dL (40-59) 12/07/20 08:18 Cholesterol/HDL Ratio 2.70 % 12/07/20 08:18 Procalcitonin 0.31 ng/mL (<0.15) 12/07/20 08:18 Microbiology: Microbiology 12/07/20 08:17 Peripheral/Venous Blood Culture - Preliminary NO GROWTH AFTER 24 HOURS 12/07/20 08:17 Peripheral/Venous Blood Culture - Preliminary NO GROWTH AFTER 24 HOURS Hyatt/IV: Voiding Method Urinal Active Medications - Current Medications Current Medications: Generic Name Dose Route Start Last Admin Trade Name Freq PRN Reason Stop Dose Admin Acetaminophen 650 mg 12/07/20 09:00 Acetaminophen 325 Mg Tab PO Q4H PRN Pain MILD(1-3)/Fever >100.5/YU Aspirin 81 mg 12/08/20 10:00 Aspirin 81 Mg Tab Chew PO QDAY MARITA Carvedilol 25 mg 12/07/20 22:00 12/07/20 22:34 Carvedilol 25 Mg Tab PO 25 mg Q12HR AMRITA Administration Enoxaparin Sodium 40 mg 12/08/20 22:00 Enoxaparin 40 Mg/0.4 Ml Inj SUB-Q QHS [facility] Folic Acid 1 mg 12/07/20 10:00 12/07/20 10:26 Folic Acid 1 Mg Tab PO 1 mg QDAY AM[facility]ITA Administration Furosemide 40 mg 12/07/20 18:00 12/08/20 05:29 Furosemide 40 Mg/4 Ml Inj IV 40 mg BID@0600,1800 AMRITA Administration Lisinopril 10 mg 12/07/20 16:00 12/07/20 17:36 Lisinopril 10 Mg Tab PO 10 mg QDAY AM[facility]ITA Administration Methocarbamol 750 mg 12/07/20 09:00 Methocarbamol 750 Mg Tab PO Q8H PRN Muscle Spasm Ondansetron HCl 4 mg 12/07/20 08:38 Ondansetron 4 Mg/2 Ml Inj IV Q8H PRN Nausea And Vomiting Sodium Chloride 10 ml 12/07/20 10:00 12/07/20 22:34 Sodium Chloride 0.9% 10 Ml Flush Syringe IV 10 ml BID AMRITA Administration Sodium Chloride 10 ml 12/07/20 08:38 Sodium Chloride 0.9% 10 Ml Flush Syringe IV PRN PRN LINE FLUSH Spironolactone 25 mg 12/07/20 10:00 12/07/20 10:26 Spironolactone 25 Mg Tab PO 25 mg QDAY AM[facility]ITA Administration Nutrition/Malnutrition Assess - Dietary Evaluation Nutrition/Malnutrition Findings: Nutrition Notes Start: 12/08/20 09:16 Freq: Status: Active Protocol: Document 12/08/20 09:16 CW (Rec: 12/08/20 09:19 [id number]) Nutrition Notes Need for Assessment 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 Skin is intact. Eliot score od 20. PO intake is excellent Current % PO Good (75-100%) Nutrition Intervention Revisit per MD consult or patient Sign Off request: Additional Comments S/O for skin intact and good PO intake
[2020-12-08] MEDS: ASPIRIN 81 MG TAB CHEW PO SCH (09:35)
[2020-12-08] MEDS: carvediloL 25 MG TAB PO SCH ×2 (09:38→23:01)
[2020-12-08] MEDS: FOLIC ACID 1 MG TAB PO SCH (09:39)
[2020-12-08] MEDS: SPIRONOLACTONE 25 MG TAB PO SCH (09:39)
[2020-12-08] MEDS: LISINOPRIL 10 MG TAB PO SCH (09:40)
--- NOTE | 2020-12-08 12:09 | Progress Note ---
Assessment and Plan The pt is a 39 YO male with a past medical history of HFrEF, dilated NICMP, normal coronaries via LHC 11/30/2020, HTN, COPD, tobacco use. He is followed in our office by Dr. Lopez. He presented with c/o progressively worsening SOB, orthopnea, BLE swelling for several weeks prior to arrival. Pt denies any chest pain, palpitations, n/v, diaphoresis, dizziness or syncope. CXR shows diffuse bilateral pulmonary opacities which are likely due to pulmonary edema, however, pt admitted as COVID-19 PUI and COVID testing has been ordered per primary. Of note, pt was admitted to [facility] earlier this month for eval/management of HFrEF and suspected RLE cellulitis. TTE done 11/21/2020 showed EF 20-25%. Pt underwent LHC 11/30/2020 which showed normal coronaries, EF 20-25% with moderately elevated LVEDP. Following LHC, additional diuresis and LifeVest placement was recommended. However, pt left AGAINST MEDICAL ADVICE because reportedly had to "take care of urgent business." Pt stated that he intended to return to the hospital later that day for completion of treatment but ultimately did not. Optimize cardiac output and diuresis. Once Covid PCR is resulted pt should be moved to Telemetry and we will initiate Dobutamine 2.5gtt x 72 hours. Cont coreg, aldactone, IV lasix BID. Reoeat BMP and Magnesium in am. Hold ACEI/ARB in setting of LILIBETH. Will resume if/when indicated by renal function. Ddimer elevated - BLE venous and arterial studies done 11/22/2020 were negative for significant findings, recommend further eval/management (?chest CTA r/o PE) per primary team. Will follow. The patient has been seen in conjunction with Dr. Perdomo who agrees with the assessment and plan of care. - Patient Problems (1) Acute on chronic HFrEF (heart failure with reduced ejection fraction) Current Visit: Yes Status: Acute (2) NICM (nonischemic cardiomyopathy) Current Visit: Yes Status: Chronic (3) Normal coronary arteries Current Visit: Yes Status: Chronic (4) Person under investigation for COVID-19 Current Visit: Yes Status: Acute (5) Noncompliance with medication regimen Current Visit: Yes Status: Chronic (6) HTN (hypertension) Current Visit: Yes Status: Chronic Qualifiers: Hypertension type: essential hypertension Qualified Code(s): I10 - Essential (primary) hypertension (7) COPD (chronic obstructive pulmonary disease) Current Visit: Yes Status: Chronic (8) Elevated troponin Current Visit: Yes Status: Acute Plan to address problem: nonspecific (9) Tobacco use Current Visit: Yes Status: Chronic Plan to address problem: cessation encouraged (10) Elevated d-dimer Current Visit: Yes Status: Acute Subjective Date of service: 12/08/20 Principal diagnosis: HFrEF Interval history: Pt resting comfortably in bed. No SOB, CP overnight. Tele reviewed: SR 88. No events. Objective Last Vital Signs Temp 98.7 F 12/08/20 10:37 Pulse 91 H 12/08/20 10:37 Resp 24 12/08/20 10:37 BP 124/80 12/08/20 10:37 Pulse Ox 95 12/08/20 10:37 - Physical Examination HEENT: Positive: PERRL, Normocephaly, Mucus Membranes Moist Neck: Positive: neck supple, trachea midline Cardiac: Positive: Reg Rate and Rhythm, S1/S2 Lungs: Positive: clear to auscultation, Normal Breath Sounds Neuro: Positive: Grossly Intact Abdomen: Positive: Active Bowel Sounds, Other (abdominal swelling). Negative: Tender Skin: Negative: Rash, Wound Extremities: Present: upper extr. pulses, lower extr. pulses, +2 Edema (BLE ) - Labs and Meds CBC 12/08/20 Range/Units 06:19 WBC 7.6 (4.5-11.0) K/mm3 RBC 2.88 L (3.65-5.03) M/mm3 Hgb 9.5 L (11.8-15.2) gm/dl Hct 27.9 L (35.5-45.6) % Plt Count 205 (140-440) K/mm3 Lymph # (Auto) 0.5 L (1.2-5.4) K/mm3 [place] # (Auto) 0.7 (0.0-0.8) K/mm3 Eos # (Auto) 0.0 (0.0-0.4) K/mm3 Baso # (Auto) 0.0 (0.0-0.1) K/mm3 Comprehensive Metabolic Panel 12/08/20 Range/Units 06:19 Sodium 144 (137-145) mmol/L Potassium 3.9 (3.6-5.0) mmol/L Chloride 107.4 H (98-107) mmol/L Carbon Dioxide 28 (22-30) mmol/L BUN 29 H (9-20) mg/dL Creatinine 1.4 H (0.8-1.3) mg/dL Glucose 132 H (75-100) mg/dL Calcium 8.1 L (8.4-10.2) mg/dL - Imaging and Cardiology EKG: report reviewed, image reviewed Echo: report reviewed (11/21/2020: EF 20-25%, LV mod dilated, RV mod dilated, mild LVH, LA and RA mod dilated, mild MR, mod TR, mild pulm HTN RVSP 43mmHg) Cardiac cath: report reviewed (11/30/2020 which showed normal coronaries, EF 20- 25%) - EKG Sinus rhythms and dysrhythmias: sinus rhythm
--- NOTE | 2020-12-08 12:44 | Nuclear Medicine Report ---
NUCLEAR MEDICINE PERFUSION SCAN INDICATION: r/o PE, elevated d-dimer CORRELATION: AP chest dated 12/07/2020 RADIOPHARMACEUTICAL: Perfusion: 5.2 mCi Tc-99m MAA given IV FINDINGS: Perfusion images show symmetric and uniform radiotracer distribution throughout bilateral lung zones with no evidence of unmatched segmental perfusion defects. Normal cardiac silhouette. IMPRESSION: Very low probability perfusion scan for pulmonary embolism. Signer Name: Alexander Merino Jr, MD Signed: 12/08/2020 11:50 AM Workstation Name: [id number]
[2020-12-08] MEDS ORDERED: DOBUTamine/D5W 500 MG/250 ML 500 MG/250 ML BAG IV SCH (15:00)
[2020-12-08] MEDS: ENOXAPARIN 40 MG/0.4 ML INJ SUB-Q SCH (23:00)
[2020-12-09] MEDS: FUROSEMIDE 40 MG/4 ML INJ IV SCH ×2 (04:50→06:06)
[2020-12-09 07:30] LABS: BUN/Creatinine Ratio 21; Blood Urea Nitrogen 27 mg/dL (9-20); Calcium 8.1 mg/dL (8.4-10.2); Hemolysis Index 8
--- NOTE | 2020-12-09 08:46 | Progress Note ---
Assessment and Plan Assessment and plan: The pt is a 39 YO male with a past medical history of HFrEF, dilated NICMP, normal coronaries via LHC 11/30/2020, HTN, COPD, tobacco use. He is followed in our office by Dr. Lopez. He presented with c/o progressively worsening SOB, orthopnea, BLE swelling for several weeks prior to arrival. Pt denies any chest pain, palpitations, n/v, diaphoresis, dizziness or syncope. CXR shows diffuse bilateral pulmonary opacities which are likely due to pulmonary edema, however, pt admitted as COVID-19 PUI and COVID testing has been ordered per primary. Of note, pt was admitted to [facility] earlier this month for eval/management of HFrEF and suspected RLE cellulitis. TTE done 11/21/2020 showed EF 20-25%. Pt underwent LHC 11/30/2020 which showed normal coronaries, EF 20-25% with moderately elevated LVEDP. Following LHC, additional diuresis and LifeVest placement was recommended. However, pt left AGAINST MEDICAL ADVICE because reportedly had to "take care of urgent business." Pt stated that he intended to return to the hospital later that day for completion of treatment but ultimately did not. Acute on chronic HFrEF. Nonischemic cardiomyopathy. Cardiac catheterization on 11/30/2020 revealed no angiographic evidence of significant epicardial coronary disease and severe global left ventricular hypokinesis with EF of 20 to 25%. No evidence of aortic stenosis and moderately elevated LVEDP. We will continue JUSTO inhibitor, beta- vinicius. Aggressive diuresis. Aldactone IV Lasix. Hypertension-currently has optimal control blood pressure 126/83 with current blood pressure medications as mentioned above. COPD-wheezing has improved today. Appears to be primarily congestive heart failure. Obesity. Decrease caloric intake and also increase activity when patient is more stable. 12/07: Patient will be admitted to telemetry floor and placed on the CHF pathway/protocol. Patient received IV diuresis and resume home medications. Cardiology consultation pending. 12/08: Continue Coreg, lisinopril, Aldactone and IV Lasix twice daily. Continue to follow BMP. BNP extremely elevated greater than 46,000. Continue GDMT for heart failure per cardiology recommendations. Check VQ scan given elevated D- dimer and elevated creatinine. 12/09. Patient is showing evidence of improvement in both lower extremities and abdominal ascites. Patient on Aldactone and Lasix. We will continue current dose. Follow-up BMP. Subjective Date of service: 12/09/20 Principal diagnosis: HFrEF Interval history: The pt is a 39 YO male with a past medical history of HFrEF, dilated NICMP, normal coronaries via C 11/30/2020, HTN, COPD, tobacco use. He is followed in our office by Dr. Lopez. He presented with c/o progressively worsening SOB, orthopnea, BLE swelling for several weeks prior to arrival. Pt denies any chest pain, palpitations, n/v, diaphoresis, dizziness or syncope. CXR shows diffuse bilateral pulmonary opacities which are likely due to pulmonary edema, however, pt admitted as COVID-19 PUI and COVID testing has been ordered per primary. Of note, pt was admitted to [facility] earlier this month for eval/management of HFrEF and suspected RLE cellulitis. TTE done 11/21/2020 showed EF 20-25%. Pt underwent LHC 11/30/2020 which showed normal coronaries, EF 20-25% with moderately elevated LVEDP. Following LHC, additional diuresis and LifeVest placement was recommended. However, pt left AGAINST MEDICAL ADVICE because reportedly had to "take care of urgent business." Pt stated that he intended to return to the hospital later that day for completion of treatment but ultimately did not. At present patient states he feels much better with fluid being removed. Still has considerable amount of fluid on physical exam. Remains on dobutamine day 2. Hospital course uncomplicated over p.m. Objective - Constitutional Vitals: Vital Signs - 12hr 12/08/20 12/08/20 12/08/20 20:54 22:00 23:01 Temperature 99.4 F Pulse Rate 78 78 Respiratory 19 Rate Blood Pressure 130/102 130/102 O2 Sat by Pulse 94 98 Oximetry 12/08/20 12/08/20 12/09/20 23:15 23:30 00:25 Temperature 98.8 F Pulse Rate 91 H 91 H 90 Respiratory 17 Rate Blood Pressure 126/90 O2 Sat by Pulse 92 Oximetry 12/09/20 03:20 Temperature 98.4 F Pulse Rate 90 Respiratory 17 Rate Blood Pressure 125/75 O2 Sat by Pulse 96 Oximetry General appearance: Present: no acute distress - Neck Neck: supple, normal ROM - Respiratory Respiratory effort: normal Respiratory: bilateral: diminished, rales, rhonchi - Cardiovascular Rhythm: regular Extremity abnormal: other (Ascites +4 pitting edema. Extending to thighs. Increased abdominal girth.) - Musculoskeletal Musculoskeletal: generalized weakness - Neurologic Neurologic: moves all extremities - Psychiatric Psychiatric: memory intact, appropriate mood/affect, intact judgment & insight - Labs CBC & Chem 7: 12/08/20 06:19 12/09/20 06:34 Labs: Abnormal lab results 12/09/20 Range/Units 06:34 BUN 27 H (9-20) mg/dL Glucose 115 H (75-100) mg/dL Calcium 8.1 L (8.4-10.2) mg/dL HEART Score - HEART Score Troponin: Troponin T 0.080 ng/mL (0.00-0.029) H 12/08/20 06:19
--- NOTE | 2020-12-09 09:31 | Progress Note ---
Assessment and Plan The pt is a 39 YO male with a past medical history of HFrEF, dilated NICMP, normal coronaries via LHC 11/30/2020, HTN, COPD, tobacco use. He is followed in our office by Dr. Lopez. He presented with c/o progressively worsening SOB, orthopnea, BLE swelling for several weeks prior to arrival. Pt denies any chest pain, palpitations, n/v, diaphoresis, dizziness or syncope. CXR shows diffuse bilateral pulmonary opacities which are likely due to pulmonary edema. Covid 19 PCR is negative. Of note, pt was admitted to [facility] earlier this month for eval/management of HFrEF and suspected RLE cellulitis. TTE done 11/21/2020 showed EF 20-25%. Pt underwent LHC 11/30/2020 which showed normal coronaries, EF 20-25% with moderately elevated LVEDP. Following LHC, additional diuresis and LifeVest placement was recommended. However, pt left AGAINST MEDICAL ADVICE because reportedly had to "take care of urgent business." Pt stated that he intended to return to the hospital later that day for completion of treatment but ultimately did not. Tele reviewed: SR 91. No events. Pt reports low urine output. IO's document a net increase of 50CC. Optimize cardiac output and diuresis. Convert IV Lasix to IV Bumex, initiate Zaroxalyn 2.5mg PO QD, continue Dobutamine 2.5gtt x 72 hours. Cont coreg, aldactone. Repeat BMP in am. Strict I/Os. Hold ACEI/ARB in setting of LILIBETH. Will resume if/when indicated by renal function. Ddimer elevated - BLE venous and arterial studies done 11/22/2020 were negative for significant findings, recommend further eval/management (?chest CTA r/o PE) per primary team. Will follow. The patient has been seen in conjunction with Dr. Perdomo who agrees with the assessment and plan of care. - Patient Problems (1) Acute on chronic HFrEF (heart failure with reduced ejection fraction) Current Visit: Yes Status: Acute (2) NICM (nonischemic cardiomyopathy) Current Visit: Yes Status: Chronic (3) Normal coronary arteries Current Visit: Yes Status: Chronic (4) Person under investigation for COVID-19 Current Visit: Yes Status: Acute (5) Noncompliance with medication regimen Current Visit: Yes Status: Chronic (6) HTN (hypertension) Current Visit: Yes Status: Chronic Qualifiers: Hypertension type: essential hypertension Qualified Code(s): I10 - Essential (primary) hypertension (7) COPD (chronic obstructive pulmonary disease) Current Visit: Yes Status: Chronic (8) Elevated troponin Current Visit: Yes Status: Acute Plan to address problem: nonspecific (9) Tobacco use Current Visit: Yes Status: Chronic Plan to address problem: cessation encouraged (10) Elevated d-dimer Current Visit: Yes Status: Acute Subjective Date of service: 12/09/20 Principal diagnosis: HFrEF Interval history: Pt resting comfortably in bed. No SOB, CP overnight. BLE edema remains, but pt reports significant improvement in SOB. He is now able to lay down without SOB. Tele reviewed: Sinus Rhythm 91. No events. Objective Last Vital Signs Temp 98.4 F 12/09/20 03:20 Pulse 90 12/09/20 03:20 Resp 17 12/09/20 03:20 BP 125/75 12/09/20 03:20 Pulse Ox 96 12/09/20 03:20 - Physical Examination HEENT: Positive: PERRL, Normocephaly, Mucus Membranes Moist Neck: Positive: neck supple, trachea midline Cardiac: Positive: Reg Rate and Rhythm, S1/S2 Lungs: Positive: clear to auscultation, Normal Breath Sounds Neuro: Positive: Grossly Intact Abdomen: Positive: Active Bowel Sounds, Other (abdominal swelling). Negative: Tender Skin: Negative: Rash, Wound Extremities: Present: upper extr. pulses, lower extr. pulses, +2 Edema (BLE ) - Labs and Meds Comprehensive Metabolic Panel 12/09/20 Range/Units 06:34 Sodium 142 (137-145) mmol/L Potassium 3.6 (3.6-5.0) mmol/L Chloride 105.3 (98-107) mmol/L Carbon Dioxide 28 (22-30) mmol/L BUN 27 H (9-20) mg/dL Creatinine 1.3 (0.8-1.3) mg/dL Glucose 115 H (75-100) mg/dL Calcium 8.1 L (8.4-10.2) mg/dL - Imaging and Cardiology EKG: report reviewed, image reviewed Echo: report reviewed (11/21/2020: EF 20-25%, LV mod dilated, RV mod dilated, mild LVH, LA and RA mod dilated, mild MR, mod TR, mild pulm HTN RVSP 43mmHg) Cardiac cath: report reviewed (11/30/2020 which showed normal coronaries, EF 20- 25%) - Telemetry EKG Rhythm: Sinus Rhythm - EKG Sinus rhythms and dysrhythmias: sinus rhythm
[2020-12-09] MEDS: FOLIC ACID 1 MG TAB PO SCH (11:26)
[2020-12-09] MEDS: ASPIRIN 81 MG TAB CHEW PO SCH (11:26)
[2020-12-09] MEDS: SPIRONOLACTONE 25 MG TAB PO SCH (11:26)
[2020-12-09] MEDS: carvediloL 25 MG TAB PO SCH ×2 (11:26→22:40)
[2020-12-09] MEDS: LISINOPRIL 10 MG TAB PO SCH (11:26)
--- NOTE | 2020-12-09 11:41 | Electrocardiograph Report ---
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
[2020-12-09 13:24] LABS: Alanine Aminotransferase 38 units/L (7-56); BUN/Creatinine Ratio 21; Blood Urea Nitrogen 27 mg/dL (9-20); Calcium 7.8 mg/dL (8.4-10.2); Hemolysis Index 10
[2020-12-09] MEDS: metOLazone 2.5 MG TAB PO SCH (18:00)
[2020-12-09] MEDS: BUMETANIDE 1 MG/4 ML INJ IV SCH (18:44)
[2020-12-09] MEDS: ENOXAPARIN 40 MG/0.4 ML INJ SUB-Q SCH (22:46)
[2020-12-10] MEDS: BUMETANIDE 1 MG/4 ML INJ IV SCH ×3 (06:55→21:24)
[2020-12-10] MEDS: metOLazone 2.5 MG TAB PO SCH (09:56)
[2020-12-10] MEDS: LISINOPRIL 10 MG TAB PO SCH (09:56)
[2020-12-10] MEDS: ASPIRIN 81 MG TAB CHEW PO SCH (09:56)
[2020-12-10] MEDS: carvediloL 25 MG TAB PO SCH ×2 (09:57→21:24)
[2020-12-10] MEDS: SPIRONOLACTONE 25 MG TAB PO SCH (09:57)
[2020-12-10] MEDS: FOLIC ACID 1 MG TAB PO SCH (09:57)
[2020-12-10] MEDS: DOBUTamine/D5W 500 MG/250 ML 500 MG/250 ML BAG IV SCH ×2 (10:00→15:09)
--- NOTE | 2020-12-10 10:08 | Progress Note ---
Assessment and Plan Assessment and plan: The pt is a 39 YO male with a past medical history of HFrEF, dilated NICMP, normal coronaries via LHC 11/30/2020, HTN, COPD, tobacco use. He is followed in our office by Dr. Lopez. He presented with c/o progressively worsening SOB, orthopnea, BLE swelling for several weeks prior to arrival. Pt denies any chest pain, palpitations, n/v, diaphoresis, dizziness or syncope. CXR shows diffuse bilateral pulmonary opacities which are likely due to pulmonary edema, however, pt admitted as COVID-19 PUI and COVID testing has been ordered per primary. Of note, pt was admitted to [facility] earlier this month for eval/management of HFrEF and suspected RLE cellulitis. TTE done 11/21/2020 showed EF 20-25%. Pt underwent LHC 11/30/2020 which showed normal coronaries, EF 20-25% with moderately elevated LVEDP. Following LHC, additional diuresis and LifeVest placement was recommended. However, pt left AGAINST MEDICAL ADVICE because reportedly had to "take care of urgent business." Pt stated that he intended to return to the hospital later that day for completion of treatment but ultimately did not. Acute on chronic HFrEF. Nonischemic cardiomyopathy. Cardiac catheterization on 11/30/2020 revealed no angiographic evidence of significant epicardial coronary disease and severe global left ventricular hypokinesis with EF of 20 to 25%. No evidence of aortic stenosis and moderately elevated LVEDP. Hypertension COPD Obesity. 12/07: Patient will be admitted to telemetry floor and placed on the CHF pathway/protocol. Patient received IV diuresis and resume home medications. Cardiology consultation pending. 12/08: Continue Coreg, lisinopril, Aldactone and IV Lasix twice daily. Continue to follow BMP. BNP extremely elevated greater than 46,000. Continue GDMT for heart failure per cardiology recommendations. Check VQ scan given elevated D- dimer and elevated creatinine. 12/09. Patient is showing evidence of improvement in both lower extremities and abdominal ascites. Patient on Aldactone and Lasix. We will continue current dose. Follow-up BMP. 12/10. Ddimer elevated - BLE venous and arterial studies done 11/22/2020 were negative and VQ scan negative for PE. Continue IV dobutamine x72 hours, IV Bumex and Zaroxolyn per cardiology recommendations. Also continue Coreg and Aldactone but hold on JUSTO inhibitor/ARB in the setting of LILIBETH. History Interval history: No new issues overnight. Hospitalist Physical - Constitutional Vitals: Temp Pulse Resp BP Pulse Ox 98.0 F 89 19 143/106 99 12/10/20 09:06 12/10/20 09:57 12/10/20 09:06 12/10/20 09:57 12/10/20 09:06 General appearance: Present: no acute distress - EENT Eyes: Present: PERRL, EOM intact ENT: hearing intact, clear oral mucosa, dentition normal - Neck Neck: Present: supple, normal ROM - Respiratory Respiratory effort: normal Respiratory: bilateral: CTA - Cardiovascular Rhythm: regular Heart Sounds: Present: S1 & S2. Absent: gallop, rub - Extremities Extremities: no ischemia, No edema, Full ROM - Abdominal General gastrointestinal: soft, non-tender, non-distended, normal bowel sounds - Integumentary Integumentary: Present: clear, warm, dry - Neurologic Neurologic: CNII-XII intact, moves all extremities HEART Score - HEART Score Troponin: Troponin T 0.071 ng/mL (0.00-0.029) H 12/10/20 06:47 Results - Labs CBC & Chem 7: 12/08/20 06:19 12/09/20 12:30 Labs: Laboratory Last Values WBC 7.6 K/mm3 (4.5-11.0) 12/08/20 06:19 RBC 2.88 M/mm3 (3.65-5.03) L 12/08/20 06:19 Hgb 9.5 gm/dl (11.8-15.2) L 12/08/20 06:19 Hct 27.9 % (35.5-45.6) L 12/08/20 06:19 MCV 97 fl (84-94) H 12/08/20 06:19 MCH 33 pg (28-32) H 12/08/20 06:19 MCHC 34 % (32-34) 12/08/20 06:19 RDW 17.3 % (13.2-15.2) H 12/08/20 06:19 Plt Count 205 K/mm3 (140-440) 12/08/20 06:19 Lymph % (Auto) 7.0 % (13.4-35.0) L 12/08/20 06:19 [place] % (Auto) 9.7 % (0.0-7.3) H 12/08/20 06:19 Eos % (Auto) 0.5 % (0.0-4.3) 12/08/20 06:19 Baso % (Auto) 0.4 % (0.0-1.8) 12/08/20 06:19 Lymph # (Auto) 0.5 K/mm3 (1.2-5.4) L 12/08/20 06:19 [place] # (Auto) 0.7 K/mm3 (0.0-0.8) 12/08/20 06:19 Eos # (Auto) 0.0 K/mm3 (0.0-0.4) 12/08/20 06:19 Baso # (Auto) 0.0 K/mm3 (0.0-0.1) 12/08/20 06:19 Seg Neutrophils % 82.4 % (40.0-70.0) H 12/08/20 06:19 Seg Neutrophils # 6.4 K/mm3 (1.8-7.7) 12/08/20 06:19 D-Dimer 1143.29 ng/mlDDU (0-234) H 12/07/20 08:18 Sodium 145 mmol/L (137-145) 12/09/20 12:30 Potassium 3.9 mmol/L (3.6-5.0) 12/09/20 12:30 Chloride 107.3 mmol/L (98-107) H 12/09/20 12:30 Carbon Dioxide 27 mmol/L (22-30) 12/09/20 12:30 Anion Gap 15 mmol/L 12/09/20 12:30 BUN 27 mg/dL (9-20) H 12/09/20 12:30 Creatinine 1.3 mg/dL (0.8-1.3) 12/09/20 12:30 Estimated GFR > 60 ml/min 12/09/20 12:30 BUN/Creatinine Ratio 21 % 12/09/20 12:30 Glucose 180 mg/dL (75-100) H 12/09/20 12:30 Lactic Acid 1.50 mmol/L (0.7-2.0) 12/07/20 08:18 Calcium 7.8 mg/dL (8.4-10.2) L 12/09/20 12:30 Magnesium 2.10 mg/dL (1.7-2.3) 12/09/20 06:34 Ferritin 390.3 ng/mL (30.0-300.0) H 12/07/20 08:18 Total Bilirubin 0.80 mg/dL (0.1-1.2) 12/09/20 12:30 AST 19 units/L (5-40) 12/09/20 12:30 ALT 38 units/L (7-56) 12/09/20 12:30 Alkaline Phosphatase 212 units/L (35-129) H 12/09/20 12:30 Lactate Dehydrogenase 543 units/L (91-180) H 12/07/20 08:18 Total Creatine Kinase 96 units/L (55-170) 12/07/20 08:18 Troponin T 0.071 ng/mL (0.00-0.029) H 12/10/20 06:47 C-Reactive Protein 0.90 mg/dL (0.00-1.30) 12/07/20 08:18 NT-Pro-B Natriuret Pep 77741 pg/mL (0-450) H 12/10/20 06:47 Total Protein 5.4 g/dL (6.3-8.2) L 12/09/20 12:30 Albumin 3.0 g/dL (3.9-5) L 12/09/20 12:30 Albumin/Globulin Ratio 1.3 % 12/09/20 12:30 Triglycerides 178 mg/dL (2-149) H 12/07/20 08:18 Cholesterol 138 mg/dL (50-199) 12/07/20 08:18 LDL Cholesterol Direct 61 mg/dL (50-130) 12/07/20 08:18 HDL Cholesterol 51 mg/dL (40-59) 12/07/20 08:18 Cholesterol/HDL Ratio 2.70 % 12/07/20 08:18 Procalcitonin 0.31 ng/mL (<0.15) 12/07/20 08:18 Coronavirus (PCR) Negative (Negative) 12/07/20 09:45 Microbiology: Microbiology 12/07/20 08:17 Peripheral/Venous Blood Culture - Preliminary NO GROWTH AFTER 72 HOURS 12/07/20 08:17 Peripheral/Venous Blood Culture - Preliminary NO GROWTH AFTER 72 HOURS Hyatt/IV: Voiding Method Urinal Active Medications - Current Medications Current Medications: Generic Name Dose Route Start Last Admin Trade Name Freq PRN Reason Stop Dose Admin Acetaminophen 650 mg 12/07/20 09:00 Acetaminophen 325 Mg Tab PO Q4H PRN Pain MILD(1-3)/Fever >100.5/YU Aspirin 81 mg 12/08/20 10:00 12/10/20 09:56 Aspirin 81 Mg Tab Chew PO 81 mg QDAY AMRITA Administration Bumetanide 1 mg 12/10/20 14:00 Bumetanide 1 Mg/4 Ml Inj IV TID AMRITA Carvedilol 25 mg 12/07/20 22:00 12/10/20 09:57 Carvedilol 25 Mg Tab PO 25 mg Q12HR AMRITA Administration Enoxaparin Sodium 40 mg 12/08/20 22:00 12/09/20 22:46 Enoxaparin 40 Mg/0.4 Ml Inj SUB-Q 40 mg QHS AMRITA Administration Folic Acid 1 mg 12/07/20 10:00 12/10/20 09:57 Folic Acid 1 Mg Tab PO 1 mg QDAY AMRITA Administration Dobutamine HCl/Dextrose 500 mg in 250 mls @ 16.455 mls/hr 12/10/20 10:00 Dobutrex Drip 500mg/D5w 250ml IV 12/12/20 09:59 DIRECT AMRITA Protocol 5 MCG/KG/MIN Lisinopril 10 mg 12/07/20 16:00 12/10/20 09:56 Lisinopril 10 Mg Tab PO 10 mg QDAY AMRITA Administration Methocarbamol 750 mg 12/07/20 09:00 Methocarbamol 750 Mg Tab PO Q8H PRN Muscle Spasm Metolazone 2.5 mg 12/09/20 17:30 12/10/20 09:56 Metolazone 2.5 Mg Tab PO 2.5 mg QDAY AMRITA Administration Ondansetron HCl 4 mg 12/07/20 08:38 Ondansetron 4 Mg/2 Ml Inj IV Q8H PRN Nausea And Vomiting Sodium Chloride 10 ml 12/07/20 10:00 12/10/20 09:57 Sodium Chloride 0.9% 10 Ml Flush Syringe IV 10 ml BID AMRITA Administration Sodium Chloride 10 ml 12/07/20 08:38 12/09/20 04:51 Sodium Chloride 0.9% 10 Ml Flush Syringe IV 10 ml PRN PRN Administration LINE FLUSH Spironolactone 25 mg 12/07/20 10:00 12/10/20 09:57 Spironolactone 25 Mg Tab PO 25 mg QDAY AMRITA Administration Nutrition/Malnutrition Assess - Dietary Evaluation Nutrition/Malnutrition Findings: Nutrition Notes Start: 12/08/20 09:1 6 Freq: Status: Active Protocol: Document 12/08/20 09:16 CW (Rec: 12/08/20 09:19 CW [email or web address]) Nutrition Notes Need for Assessment 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 Skin is intact. Eliot score od 20. PO intake is excellent Current % PO Good (75-100%) Nutrition Intervention Revisit per MD consult or patient Sign Off request: Additional Comments S/O for skin intact and good PO intake
--- NOTE | 2020-12-10 10:40 | Progress Note ---
Assessment and Plan The pt is a 39 YO male with a past medical history of HFrEF, dilated NICMP, normal coronaries via LHC 11/30/2020, HTN, COPD, tobacco use. He is followed in our office by Dr. Lopez. He presented with c/o progressively worsening SOB, orthopnea, BLE swelling for several weeks prior to arrival. Pt denies any chest pain, palpitations, n/v, diaphoresis, dizziness or syncope. CXR shows diffuse bilateral pulmonary opacities which are likely due to pulmonary edema. Covid 19 PCR is negative. Of note, pt was admitted to [facility] earlier this month for eval/management of HFrEF and suspected RLE cellulitis. TTE done 11/21/2020 showed EF 20-25%. Pt underwent LHC 11/30/2020 which showed normal coronaries, EF 20-25% with moderately elevated LVEDP. Following LHC, additional diuresis and LifeVest placement was recommended. However, pt left AGAINST MEDICAL ADVICE because reportedly had to "take care of urgent business." Pt stated that he intended to return to the hospital later that day for completion of treatment but ultimately did not. Tele reviewed: Sinus Rhythm 96. 6 beat run of VT noted overnight. Troponin is elevated, nonspecific and subacute, trending down. Continue to monitor No. IO's document a net decrease of 180CC. Optimize cardiac output and diuresis. Increase Bumex to 1mg IV TID, Increase Dobutamine gtt to 5mg x 48Hrs. Continue Zaroxalyn 2.5mg PO daily, coreg 25mg PO BID, aldactone 25mg PO daily. Repeat BMP in am. Strict I/Os. Will follow. The patient has been seen in conjunction with Dr. Perdomo who agrees with the assessment and plan of care. - Patient Problems (1) Acute on chronic HFrEF (heart failure with reduced ejection fraction) Current Visit: Yes Status: Acute (2) NICM (nonischemic cardiomyopathy) Current Visit: Yes Status: Chronic (3) Normal coronary arteries Current Visit: Yes Status: Chronic (4) Person under investigation for COVID-19 Current Visit: Yes Status: Acute (5) Noncompliance with medication regimen Current Visit: Yes Status: Chronic (6) HTN (hypertension) Current Visit: Yes Status: Chronic Qualifiers: Hypertension type: essential hypertension Qualified Code(s): I10 - Essential (primary) hypertension (7) COPD (chronic obstructive pulmonary disease) Current Visit: Yes Status: Chronic (8) Elevated troponin Current Visit: Yes Status: Acute Plan to address problem: nonspecific (9) Tobacco use Current Visit: Yes Status: Chronic Plan to address problem: cessation encouraged (10) Elevated d-dimer Current Visit: Yes Status: Acute Subjective Date of service: 12/10/20 Principal diagnosis: HFrEF Interval history: Pt resting comfortably in bed. No SOB, CP overnight. BLE edema remains, but pt reports significant improvement in SOB. Tele reviewed: Sinus Rhythm 96. 6beat run of VT noted overnight. Objective Last Vital Signs Temp 98.0 F 12/10/20 09:06 Pulse 89 12/10/20 09:57 Resp 19 12/10/20 09:06 BP 143/106 12/10/20 09:57 Pulse Ox 99 12/10/20 09:06 - Physical Examination General: No Apparent Distress HEENT: Positive: PERRL, Normocephaly, Mucus Membranes Moist Neck: Positive: neck supple, trachea midline Cardiac: Positive: Reg Rate and Rhythm, S1/S2 Lungs: Positive: clear to auscultation, Normal Breath Sounds Neuro: Positive: Grossly Intact Abdomen: Positive: Active Bowel Sounds, Other (abdominal swelling). Negative: Tender Skin: Negative: Rash, Wound Extremities: Present: upper extr. pulses, lower extr. pulses, +2 Edema (BLE ) - Labs and Meds Cardiac Enzymes 12/09/20 Range/Units 12:30 AST 19 (5-40) units/L Comprehensive Metabolic Panel 12/09/20 Range/Units 12:30 Sodium 145 (137-145) mmol/L Potassium 3.9 (3.6-5.0) mmol/L Chloride 107.3 H (98-107) mmol/L Carbon Dioxide 27 (22-30) mmol/L BUN 27 H (9-20) mg/dL Creatinine 1.3 (0.8-1.3) mg/dL Glucose 180 H (75-100) mg/dL Calcium 7.8 L (8.4-10.2) mg/dL AST 19 (5-40) units/L ALT 38 (7-56) units/L Alkaline Phosphatase 212 H (35-129) units/L Total Protein 5.4 L (6.3-8.2) g/dL Albumin 3.0 L (3.9-5) g/dL - Imaging and Cardiology EKG: report reviewed, image reviewed Echo: report reviewed (11/21/2020: EF 20-25%, LV mod dilated, RV mod dilated, mild LVH, LA and RA mod dilated, mild MR, mod TR, mild pulm HTN RVSP 43mmHg) Cardiac cath: report reviewed (11/30/2020 which showed normal coronaries, EF 20- 25%) - Telemetry EKG Rhythm: Sinus Rhythm - EKG Sinus rhythms and dysrhythmias: sinus rhythm
--- NOTE | 2020-12-10 17:17 | Electrocardiograph Report ---
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
[2020-12-10] MEDS: ENOXAPARIN 40 MG/0.4 ML INJ SUB-Q SCH (21:25)
[2020-12-11] MEDS ORDERED: hydrALAZINE 20 MG/1 ML INJ IV PRN (05:20)
[2020-12-11 06:26] LABS: BUN/Creatinine Ratio 17; Blood Urea Nitrogen 19 mg/dL (9-20); Calcium 7.9 mg/dL (8.4-10.2); Hemolysis Index 33
[2020-12-11] MEDS: DOBUTamine/D5W 500 MG/250 ML 500 MG/250 ML BAG IV SCH ×3 (06:48→21:47)
[2020-12-11] MEDS: BUMETANIDE 1 MG/4 ML INJ IV SCH ×3 (08:51→21:48)
[2020-12-11] MEDS: LISINOPRIL 10 MG TAB PO SCH (09:35)
[2020-12-11] MEDS: metOLazone 2.5 MG TAB PO SCH (09:35)
[2020-12-11] MEDS: FOLIC ACID 1 MG TAB PO SCH (09:35)
[2020-12-11] MEDS: SPIRONOLACTONE 25 MG TAB PO SCH (09:35)
[2020-12-11] MEDS: carvediloL 25 MG TAB PO SCH ×2 (09:35→21:23)
[2020-12-11] MEDS: ASPIRIN 81 MG TAB CHEW PO SCH (09:35)
--- NOTE | 2020-12-11 10:38 | Progress Note ---
Assessment and Plan Assessment and plan: The pt is a 39 YO male with a past medical history of HFrEF, dilated NICMP, normal coronaries via LHC 11/30/2020, HTN, COPD, tobacco use. He is followed in our office by Dr. Lopez. He presented with c/o progressively worsening SOB, orthopnea, BLE swelling for several weeks prior to arrival. Pt denies any chest pain, palpitations, n/v, diaphoresis, dizziness or syncope. CXR shows diffuse bilateral pulmonary opacities which are likely due to pulmonary edema, however, pt admitted as COVID-19 PUI and COVID testing has been ordered per primary. Of note, pt was admitted to [facility] earlier this month for eval/management of HFrEF and suspected RLE cellulitis. TTE done 11/21/2020 showed EF 20-25%. Pt underwent LHC 11/30/2020 which showed normal coronaries, EF 20-25% with moderately elevated LVEDP. Following LHC, additional diuresis and LifeVest placement was recommended. However, pt left AGAINST MEDICAL ADVICE because reportedly had to "take care of urgent business." Pt stated that he intended to return to the hospital later that day for completion of treatment but ultimately did not. Acute on chronic HFrEF. Nonischemic cardiomyopathy. Cardiac catheterization on 11/30/2020 revealed no angiographic evidence of significant epicardial coronary disease and severe global left ventricular hypokinesis with EF of 20 to 25%. No evidence of aortic stenosis and moderately elevated LVEDP. Hypertension COPD Obesity. 12/07: Patient will be admitted to telemetry floor and placed on the CHF pathway/protocol. Patient received IV diuresis and resume home medications. Cardiology consultation pending. 12/08: Continue Coreg, lisinopril, Aldactone and IV Lasix twice daily. Continue to follow BMP. BNP extremely elevated greater than 46,000. Continue GDMT for heart failure per cardiology recommendations. Check VQ scan given elevated D- dimer and elevated creatinine. 12/09. Patient is showing evidence of improvement in both lower extremities and abdominal ascites. Patient on Aldactone and Lasix. We will continue current dose. Follow-up BMP. 12/10. Ddimer elevated - BLE venous and arterial studies done 11/22/2020 were negative and VQ scan negative for PE. Continue IV dobutamine x72 hours, IV Bumex and Zaroxolyn per cardiology recommendations. Also continue Coreg and Aldactone but hold on JUSTO inhibitor/ARB in the setting of LILIBETH. 12/11. Optimize cardiac output and diuresis. Increase Bumex to 1mg IV TID, Increase Dobutamine gtt to 5mg x 48Hrs. Continue Zaroxalyn 2.5mg PO daily, coreg 25mg PO BID, aldactone 25mg PO daily. Repeat BMP in am. Strict I/Os. Cardiology following. COVID-19 testing negative on 12/07/2020. History Interval history: No new issues overnight. Hospitalist Physical - Constitutional Vitals: Temp Pulse Resp BP Pulse Ox 98.4 F 88 20 133/93 92 12/11/20 08:17 12/11/20 08:17 12/11/20 08:17 12/11/20 08:17 12/11/20 08:17 General appearance: Present: no acute distress - EENT Eyes: Present: PERRL, EOM intact ENT: hearing intact, clear oral mucosa, dentition normal - Neck Neck: Present: supple, normal ROM - Respiratory Respiratory effort: normal Respiratory: bilateral: CTA - Cardiovascular Rhythm: regular Heart Sounds: Present: S1 & S2. Absent: gallop, rub - Extremities Extremities: no ischemia, No edema, Full ROM - Abdominal General gastrointestinal: soft, non-tender, non-distended, normal bowel sounds - Integumentary Integumentary: Present: clear, warm, dry - Neurologic Neurologic: CNII-XII intact, moves all extremities HEART Score - HEART Score Troponin: Troponin T 0.073 ng/mL (0.00-0.029) H 12/11/20 05:24 Results - Labs CBC & Chem 7: 12/08/20 06:19 12/11/20 05:24 Labs: Laboratory Last Values WBC 7.6 K/mm3 (4.5-11.0) 12/08/20 06:19 RBC 2.88 M/mm3 (3.65-5.03) L 12/08/20 06:19 Hgb 9.5 gm/dl (11.8-15.2) L 12/08/20 06:19 Hct 27.9 % (35.5-45.6) L 12/08/20 06:19 MCV 97 fl (84-94) H 12/08/20 06:19 MCH 33 pg (28-32) H 12/08/20 06:19 MCHC 34 % (32-34) 12/08/20 06:19 RDW 17.3 % (13.2-15.2) H 12/08/20 06:19 Plt Count 205 K/mm3 (140-440) 12/08/20 06:19 Lymph % (Auto) 7.0 % (13.4-35.0) L 12/08/20 06:19 [place] % (Auto) 9.7 % (0.0-7.3) H 12/08/20 06:19 Eos % (Auto) 0.5 % (0.0-4.3) 12/08/20 06:19 Baso % (Auto) 0.4 % (0.0-1.8) 12/08/20 06:19 Lymph # (Auto) 0.5 K/mm3 (1.2-5.4) L 12/08/20 06:19 [place] # (Auto) 0.7 K/mm3 (0.0-0.8) 12/08/20 06:19 Eos # (Auto) 0.0 K/mm3 (0.0-0.4) 12/08/20 06:19 Baso # (Auto) 0.0 K/mm3 (0.0-0.1) 12/08/20 06:19 Seg Neutrophils % 82.4 % (40.0-70.0) H 12/08/20 06:19 Seg Neutrophils # 6.4 K/mm3 (1.8-7.7) 12/08/20 06:19 D-Dimer 1143.29 ng/mlDDU (0-234) H 12/07/20 08:18 Sodium 143 mmol/L (137-145) 12/11/20 05:24 Potassium 3.6 mmol/L (3.6-5.0) 12/11/20 05:24 Chloride 103.1 mmol/L (98-107) 12/11/20 05:24 Carbon Dioxide 29 mmol/L (22-30) 12/11/20 05:24 Anion Gap 15 mmol/L 12/11/20 05:24 BUN 19 mg/dL (9-20) 12/11/20 05:24 Creatinine 1.1 mg/dL (0.8-1.3) 12/11/20 05:24 Estimated GFR > 60 ml/min 12/11/20 05:24 BUN/Creatinine Ratio 17 % 12/11/20 05:24 Glucose 90 mg/dL (75-100) 12/11/20 05:24 Lactic Acid 1.50 mmol/L (0.7-2.0) 12/07/20 08:18 Calcium 7.9 mg/dL (8.4-10.2) L 12/11/20 05:24 Magnesium 2.10 mg/dL (1.7-2.3) 12/09/20 06:34 Ferritin 390.3 ng/mL (30.0-300.0) H 12/07/20 08:18 Total Bilirubin 0.80 mg/dL (0.1-1.2) 12/09/20 12:30 AST 19 units/L (5-40) 12/09/20 12:30 ALT 38 units/L (7-56) 12/09/20 12:30 Alkaline Phosphatase 212 units/L (35-129) H 12/09/20 12:30 Lactate Dehydrogenase 543 units/L (91-180) H 12/07/20 08:18 Total Creatine Kinase 96 units/L (55-170) 12/07/20 08:18 Troponin T 0.073 ng/mL (0.00-0.029) H 12/11/20 05:24 C-Reactive Protein 0.90 mg/dL (0.00-1.30) 12/07/20 08:18 NT-Pro-B Natriuret Pep 48105 pg/mL (0-450) H 12/10/20 06:47 Total Protein 5.4 g/dL (6.3-8.2) L 12/09/20 12:30 Albumin 3.0 g/dL (3.9-5) L 12/09/20 12:30 Albumin/Globulin Ratio 1.3 % 12/09/20 12:30 Triglycerides 178 mg/dL (2-149) H 12/07/20 08:18 Cholesterol 138 mg/dL (50-199) 12/07/20 08:18 LDL Cholesterol Direct 61 mg/dL (50-130) 12/07/20 08:18 HDL Cholesterol 51 mg/dL (40-59) 12/07/20 08:18 Cholesterol/HDL Ratio 2.70 % 12/07/20 08:18 Procalcitonin 0.31 ng/mL (<0.15) 12/07/20 08:18 Coronavirus (PCR) Negative (Negative) 12/07/20 09:45 Microbiology: Microbiology 12/07/20 08:17 Peripheral/Venous Blood Culture - Preliminary NO GROWTH AFTER 4 DAYS 12/07/20 08:17 Peripheral/Venous Blood Culture - Preliminary NO GROWTH AFTER 4 DAYS Hyatt/IV: Voiding Method Urinal Active Medications - Current Medications Current Medications: Generic Name Dose Route Start Last Admin Trade Name Freq PRN Reason Stop Dose Admin Acetaminophen 650 mg 12/07/20 09:00 Acetaminophen 325 Mg Tab PO Q4H PRN Pain MILD(1-3)/Fever >100.5/YU Aspirin 81 mg 12/08/20 10:00 12/11/20 09:35 Aspirin 81 Mg Tab Chew PO 81 mg QDAY AMRITA Administration Bumetanide 1 mg 12/10/20 14:00 12/11/20 08:51 Bumetanide 1 Mg/4 Ml Inj IV 1 mg TID AMRITA Administration Carvedilol 25 mg 12/07/20 22:00 12/11/20 09:35 Carvedilol 25 Mg Tab PO 25 mg Q12HR AMRITA Administration Enoxaparin Sodium 40 mg 12/08/20 22:00 12/10/20 21:25 Enoxaparin 40 Mg/0.4 Ml Inj SUB-Q 40 mg QHS AMRITA Administration Folic Acid 1 mg 12/07/20 10:00 12/11/20 09:35 Folic Acid 1 Mg Tab PO 1 mg QDAY AMRITA Administration Hydralazine HCl 5 mg 12/11/20 05:20 12/11/20 06:07 Hydralazine 20 Mg/1 Ml Inj IV 5 mg Q4H PRN Administration Blood Pressure Dobutamine HCl/Dextrose 500 mg in 250 mls @ 16.455 mls/hr 12/10/20 10:00 12/11/20 06:48 Dobutrex Drip 500mg/D5w 250ml IV 12/12/20 09:59 5 mcg/kg/min DIRECT AMRITA 16.455 mls/hr Administration Protocol 5 MCG/KG/MIN Lisinopril 10 mg 12/07/20 16:00 12/11/20 09:35 Lisinopril 10 Mg Tab PO 10 mg QDAY AMRITA Administration Methocarbamol 750 mg 12/07/20 09:00 Methocarbamol 750 Mg Tab PO Q8H PRN Muscle Spasm Metolazone 2.5 mg 12/09/20 17:30 12/11/20 09:35 Metolazone 2.5 Mg Tab PO 2.5 mg QDAY AMRITA Administration Ondansetron HCl 4 mg 12/07/20 08:38 Ondansetron 4 Mg/2 Ml Inj IV Q8H PRN Nausea And Vomiting Sodium Chloride 10 ml 12/07/20 10:00 12/11/20 09:36 Sodium Chloride 0.9% 10 Ml Flush Syringe IV 10 ml BID AMRITA Administration Sodium Chloride 10 ml 12/07/20 08:38 12/09/20 04:51 Sodium Chloride 0.9% 10 Ml Flush Syringe IV 10 ml PRN PRN Administration LINE FLUSH Spironolactone 25 mg 12/07/20 10:00 12/11/20 09:35 Spironolactone 25 Mg Tab PO 25 mg QDAY AMRITA Administration Nutrition/Malnutrition Assess - Dietary Evaluation Nutrition/Malnutrition Findings: Nutrition Notes Start: 12/08/20 09:16 Freq: Status: Active Protocol: Document 12/08/20 09:16 CW (Rec: 12/08/20 09:19 CW [id number]) Nutrition Notes 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 Skin is intact. Eliot score od 20. PO intake is excellent Current % PO Good (75-100%) Nutrition Intervention Revisit per MD consult or patient Sign Off request: Additional Comments S/O for skin intact and good PO intake
--- NOTE | 2020-12-11 10:51 | Progress Note ---
Assessment and Plan clinically improving dc dobutamine in am cont current tx - Patient Problems (1) Acute on chronic HFrEF (heart failure with reduced ejection fraction) Current Visit: Yes Status: Acute (2) Obesity Current Visit: Yes Status: Acute (3) HTN (hypertension) Current Visit: Yes Status: Chronic Qualifiers: Hypertension type: essential hypertension Qualified Code(s): I10 - Essential (primary) hypertension (4) NICM (nonischemic cardiomyopathy) Current Visit: Yes Status: Chronic (5) Noncompliance with medication regimen Current Visit: Yes Status: Chronic (6) Normal coronary arteries Current Visit: Yes Status: Chronic (7) Obesity hypoventilation syndrome Current Visit: No Status: Acute (8) ETOH abuse Current Visit: No Status: Chronic (9) Noncompliance with medication regimen Current Visit: No Status: Chronic Subjective Principal diagnosis: HFrEF Interval history: feel better Objective Vital Signs Temp Pulse Resp BP BP Pulse Ox 12/11/20 08:17 98.4 F 88 20 133/93 92 12/11/20 06:07 78 136/103 12/11/20 05:17 140/108 12/11/20 04:28 98.5 F 78 18 136/103 97 12/10/20 23:00 98.7 F 18 124/91 100 12/10/20 22:28 98 12/10/20 21:24 80 118/76 12/10/20 19:09 98.6 F 188 H 18 118/76 96 12/10/20 16:56 98.4 F 77 19 140/107 99 12/10/20 13:50 128/77 - Physical Examination General: No Apparent Distress HEENT: Positive: PERRL, Normocephaly, Mucus Membranes Moist Neck: Positive: neck supple, trachea midline Neuro: Positive: Grossly Intact Abdomen: Positive: Active Bowel Sounds, Other (abdominal swelling). Negative: Tender Skin: Negative: Rash, Wound Extremities: Present: upper extr. pulses, lower extr. pulses, +2 Edema (BLE ) - Labs and Meds Comprehensive Metabolic Panel 12/11/20 Range/Units 05:24 Sodium 143 (137-145) mmol/L Potassium 3.6 (3.6-5.0) mmol/L Chloride 103.1 (98-107) mmol/L Carbon Dioxide 29 (22-30) mmol/L BUN 19 (9-20) mg/dL Creatinine 1.1 (0.8-1.3) mg/dL Glucose 90 (75-100) mg/dL Calcium 7.9 L (8.4-10.2) mg/dL - Imaging and Cardiology EKG: report reviewed, image reviewed Echo: report reviewed (11/21/2020: EF 20-25%, LV mod dilated, RV mod dilated, mild LVH, LA and RA mod dilated, mild MR, mod TR, mild pulm HTN RVSP 43mmHg) Cardiac cath: report reviewed (11/30/2020 which showed normal coronaries, EF 20- 25%) - EKG Sinus rhythms and dysrhythmias: sinus rhythm
[2020-12-11] MEDS: ENOXAPARIN 40 MG/0.4 ML INJ SUB-Q SCH (21:46)
[2020-12-12] MEDS: carvediloL 25 MG TAB PO SCH ×2 (09:05→21:22)
[2020-12-12] MEDS: BUMETANIDE 1 MG/4 ML INJ IV SCH ×3 (09:05→23:37)
[2020-12-12] MEDS: FOLIC ACID 1 MG TAB PO SCH (09:05)
[2020-12-12] MEDS: SPIRONOLACTONE 25 MG TAB PO SCH (09:05)
[2020-12-12] MEDS: metOLazone 2.5 MG TAB PO SCH (09:05)
[2020-12-12] MEDS: ASPIRIN 81 MG TAB CHEW PO SCH (09:05)
--- NOTE | 2020-12-12 09:50 | Progress Note ---
Assessment and Plan Assessment and plan: The pt is a 39 YO male with a past medical history of HFrEF, dilated NICMP, normal coronaries via LHC 11/30/2020, HTN, COPD, tobacco use. He is followed in our office by Dr. Lopez. He presented with c/o progressively worsening SOB, orthopnea, BLE swelling for several weeks prior to arrival. Pt denies any chest pain, palpitations, n/v, diaphoresis, dizziness or syncope. CXR shows diffuse bilateral pulmonary opacities which are likely due to pulmonary edema, however, pt admitted as COVID-19 PUI and COVID testing has been ordered per primary. Of note, pt was admitted to [facility] earlier this month for eval/management of HFrEF and suspected RLE cellulitis. TTE done 11/21/2020 showed EF 20-25%. Pt underwent LHC 11/30/2020 which showed normal coronaries, EF 20-25% with moderately elevated LVEDP. Following LHC, additional diuresis and LifeVest placement was recommended. However, pt left AGAINST MEDICAL ADVICE because reportedly had to "take care of urgent business." Pt stated that he intended to return to the hospital later that day for completion of treatment but ultimately did not. Acute on chronic HFrEF. Nonischemic cardiomyopathy. Cardiac catheterization on 11/30/2020 revealed no angiographic evidence of significant epicardial coronary disease and severe global left ventricular hypokinesis with EF of 20 to 25%. No evidence of aortic stenosis and moderately elevated LVEDP. Hypertension COPD Obesity. 12/07: Patient will be admitted to telemetry floor and placed on the CHF pathway/protocol. Patient received IV diuresis and resume home medications. Cardiology consultation pending. 12/08: Continue Coreg, lisinopril, Aldactone and IV Lasix twice daily. Continue to follow BMP. BNP extremely elevated greater than 46,000. Continue GDMT for heart failure per cardiology recommendations. Check VQ scan given elevated D- dimer and elevated creatinine. 12/09. Patient is showing evidence of improvement in both lower extremities and abdominal ascites. Patient on Aldactone and Lasix. We will continue current dose. Follow-up BMP. 12/10. Ddimer elevated - BLE venous and arterial studies done 11/22/2020 were negative and VQ scan negative for PE. Continue IV dobutamine x72 hours, IV Bumex and Zaroxolyn per cardiology recommendations. Also continue Coreg and Aldactone but hold on JUSTO inhibitor/ARB in the setting of LILIBETH. 12/11. Optimize cardiac output and diuresis. Increase Bumex to 1mg IV TID, Increase Dobutamine gtt to 5mg x 48Hrs. Continue Zaroxalyn 2.5mg PO daily, coreg 25mg PO BID, aldactone 25mg PO daily. Repeat BMP in am. Strict I/Os. Cardiology following. COVID-19 testing negative on 12/07/2020. 12/12. Cardiology to discontinue dobutamine today. Continue diuresis with Bumex and Zaroxolyn. Continue aspirin, Coreg 25 mg p.o. twice daily and Zestril 10 mg daily. Physical therapy evaluation. History Interval history: No new issues overnight. Hospitalist Physical - Constitutional Vitals: Temp Pulse Resp BP Pulse Ox 97.9 F 86 18 126/97 94 12/12/20 07:20 12/12/20 07:20 12/12/20 07:20 12/12/20 07:20 12/12/20 07:20 General appearance: Present: no acute distress - EENT Eyes: Present: PERRL, EOM intact ENT: hearing intact, clear oral mucosa, dentition normal - Neck Neck: Present: supple, normal ROM - Respiratory Respiratory effort: normal Respiratory: bilateral: CTA - Cardiovascular Rhythm: regular Heart Sounds: Present: S1 & S2. Absent: gallop, rub - Extremities Extremities: no ischemia, No edema, Full ROM - Abdominal General gastrointestinal: soft, non-tender, non-distended, normal bowel sounds - Integumentary Integumentary: Present: clear, warm, dry - Neurologic Neurologic: CNII-XII intact, moves all extremities HEART Score - HEART Score Troponin: Troponin T 0.073 ng/mL (0.00-0.029) H 12/11/20 05:24 Results - Labs CBC & Chem 7: 12/08/20 06:19 12/11/20 05:24 Labs: Laboratory Last Values WBC 7.6 K/mm3 (4.5-11.0) 12/08/20 06:19 RBC 2.88 M/mm3 (3.65-5.03) L 12/08/20 06:19 Hgb 9.5 gm/dl (11.8-15.2) L 12/08/20 06:19 Hct 27.9 % (35.5-45.6) L 12/08/20 06:19 MCV 97 fl (84-94) H 12/08/20 06:19 MCH 33 pg (28-32) H 12/08/20 06:19 MCHC 34 % (32-34) 12/08/20 06:19 RDW 17.3 % (13.2-15.2) H 12/08/20 06:19 Plt Count 205 K/mm3 (140-440) 12/08/20 06:19 Lymph % (Auto) 7.0 % (13.4-35.0) L 12/08/20 06:19 [place] % (Auto) 9.7 % (0.0-7.3) H 12/08/20 06:19 Eos % (Auto) 0.5 % (0.0-4.3) 12/08/20 06:19 Baso % (Auto) 0.4 % (0.0-1.8) 12/08/20 06:19 Lymph # (Auto) 0.5 K/mm3 (1.2-5.4) L 12/08/20 06:19 [place] # (Auto) 0.7 K/mm3 (0.0-0.8) 12/08/20 06:19 Eos # (Auto) 0.0 K/mm3 (0.0-0.4) 12/08/20 06:19 Baso # (Auto) 0.0 K/mm3 (0.0-0.1) 12/08/20 06:19 Seg Neutrophils % 82.4 % (40.0-70.0) H 12/08/20 06:19 Seg Neutrophils # 6.4 K/mm3 (1.8-7.7) 12/08/20 06:19 D-Dimer 1143.29 ng/mlDDU (0-234) H 12/07/20 08:18 Sodium 143 mmol/L (137-145) 12/11/20 05:24 Potassium 3.6 mmol/L (3.6-5.0) 12/11/20 05:24 Chloride 103.1 mmol/L (98-107) 12/11/20 05:24 Carbon Dioxide 29 mmol/L (22-30) 12/11/20 05:24 Anion Gap 15 mmol/L 12/11/20 05:24 BUN 19 mg/dL (9-20) 12/11/20 05:24 Creatinine 1.1 mg/dL (0.8-1.3) 12/11/20 05:24 Estimated GFR > 60 ml/min 12/11/20 05:24 BUN/Creatinine Ratio 17 % 12/11/20 05:24 Glucose 90 mg/dL (75-100) 12/11/20 05:24 Lactic Acid 1.50 mmol/L (0.7-2.0) 12/07/20 08:18 Calcium 7.9 mg/dL (8.4-10.2) L 12/11/20 05:24 Magnesium 2.10 mg/dL (1.7-2.3) 12/09/20 06:34 Ferritin 390.3 ng/mL (30.0-300.0) H 12/07/20 08:18 Total Bilirubin 0.80 mg/dL (0.1-1.2) 12/09/20 12:30 AST 19 units/L (5-40) 12/09/20 12:30 ALT 38 units/L (7-56) 12/09/20 12:30 Alkaline Phosphatase 212 units/L (35-129) H 12/09/20 12:30 Lactate Dehydrogenase 543 units/L (91-180) H 12/07/20 08:18 Total Creatine Kinase 96 units/L (55-170) 12/07/20 08:18 Troponin T 0.073 ng/mL (0.00-0.029) H 12/11/20 05:24 C-Reactive Protein 0.90 mg/dL (0.00-1.30) 12/07/20 08:18 NT-Pro-B Natriuret Pep 45997 pg/mL (0-450) H 12/10/20 06:47 Total Protein 5.4 g/dL (6.3-8.2) L 12/09/20 12:30 Albumin 3.0 g/dL (3.9-5) L 12/09/20 12:30 Albumin/Globulin Ratio 1.3 % 12/09/20 12:30 Triglycerides 178 mg/dL (2-149) H 12/07/20 08:18 Cholesterol 138 mg/dL (50-199) 12/07/20 08:18 LDL Cholesterol Direct 61 mg/dL (50-130) 12/07/20 08:18 HDL Cholesterol 51 mg/dL (40-59) 12/07/20 08:18 Cholesterol/HDL Ratio 2.70 % 12/07/20 08:18 Procalcitonin 0.31 ng/mL (<0.15) 12/07/20 08:18 Coronavirus (PCR) Negative (Negative) 12/07/20 09:45 Microbiology: Microbiology 12/07/20 08:17 Peripheral/Venous Blood Culture - Final NO GROWTH AFTER 5 DAYS 12/07/20 08:17 Peripheral/Venous Blood Culture - Final NO GROWTH AFTER 5 DAYS Hyatt/IV: Voiding Method Urinal Active Medications - Current Medications Current Medications: Generic Name Dose Route Start Last Admin Trade Name Freq PRN Reason Stop Dose Admin Acetaminophen 650 mg 12/07/20 09:00 Acetaminophen 325 Mg Tab PO Q4H PRN Pain MILD(1-3)/Fever >100.5/YU Aspirin 81 mg 12/08/20 10:00 12/12/20 09:05 Aspirin 81 Mg Tab Chew PO 81 mg QDAY AMRITA Administration Bumetanide 1 mg 12/10/20 14:00 12/12/20 09:05 Bumetanide 1 Mg/4 Ml Inj IV 1 mg TID AMRITA Administration Carvedilol 25 mg 12/07/20 22:00 12/12/20 09:05 Carvedilol 25 Mg Tab PO 25 mg Q12HR AMRITA Administration Enoxaparin Sodium 40 mg 12/08/20 22:00 12/11/20 21:46 Enoxaparin 40 Mg/0.4 Ml Inj SUB-Q 40 mg QHS AMRITA Administration Folic Acid 1 mg 12/07/20 10:00 12/12/20 09:05 Folic Acid 1 Mg Tab PO 1 mg QDAY AMRITA Administration Hydralazine HCl 5 mg 12/11/20 05:20 12/11/20 06:07 Hydralazine 20 Mg/1 Ml Inj IV 5 mg Q4H PRN Administration Blood Pressure Dobutamine HCl/Dextrose 500 mg in 250 mls @ 16.455 mls/hr 12/10/20 10:00 12/11/20 21:47 Dobutrex Drip 500mg/D5w 250ml IV 12/12/20 09:59 5 mcg/kg/min DIRECT AMRITA 16.455 mls/hr Administration Protocol 5 MCG/KG/MIN Lisinopril 10 mg 12/07/20 16:00 12/11/20 09:35 Lisinopril 10 Mg Tab PO 10 mg QDAY AMRITA Administration Methocarbamol 750 mg 12/07/20 09:00 Methocarbamol 750 Mg Tab PO Q8H PRN Muscle Spasm Metolazone 2.5 mg 12/09/20 17:30 12/12/20 09:05 Metolazone 2.5 Mg Tab PO 2.5 mg QDAY AMRITA Administration Ondansetron HCl 4 mg 12/07/20 08:38 Ondansetron 4 Mg/2 Ml Inj IV Q8H PRN Nausea And Vomiting Sodium Chloride 10 ml 12/07/20 10:00 12/12/20 09:06 Sodium Chloride 0.9% 10 Ml Flush Syringe IV 10 ml BID AMRITA Administration Sodium Chloride 10 ml 12/07/20 08:38 12/09/20 04:51 Sodium Chloride 0.9% 10 Ml Flush Syringe IV 10 ml PRN PRN Administration LINE FLUSH Spironolactone 25 mg 12/07/20 10:00 12/12/20 09:05 Spironolactone 25 Mg Tab PO 25 mg QDAY AMRITA Administration Nutrition/Malnutrition Assess - Dietary Evaluation Nutrition/Malnutrition Findings: Nutrition Notes Start: 12/08/20 09:16 Freq: Status: Active Protocol: Document 12/08/20 09:16 CW (Rec: 12/08/20 09:19 CW [id number]) Nutrition Notes Need for Assessment generated from: account resolution analyst Initial or Follow up Brief Note Current Diagnosis COPD,Hypertension,Heart Failure Other Pertinent Diagnosis Covid PUI, GERD Current Diet Cardiac diet Weight Status Obese Subjective/Other Information RN screen for skin risk. Skin is intact. Eliot score od 20. PO intake is excellent Current % PO Good (75-100%) Nutrition Intervention Revisit per MD consult or patient Sign Off request: Additional Comments S/O for skin intact and good PO intake
[2020-12-12] MEDS: LISINOPRIL 10 MG TAB PO SCH (11:11)
--- NOTE | 2020-12-12 11:20 | Progress Note ---
Assessment and Plan clinically improving dc dobutamine today cont current tx - Patient Problems (1) Acute on chronic HFrEF (heart failure with reduced ejection fraction) Current Visit: Yes Status: Acute (2) Obesity Current Visit: Yes Status: Acute (3) HTN (hypertension) Current Visit: Yes Status: Chronic Qualifiers: Hypertension type: essential hypertension Qualified Code(s): I10 - Essential (primary) hypertension (4) NICM (nonischemic cardiomyopathy) Current Visit: Yes Status: Chronic (5) Noncompliance with medication regimen Current Visit: Yes Status: Chronic (6) Normal coronary arteries Current Visit: Yes Status: Chronic (7) Obesity hypoventilation syndrome Current Visit: No Status: Acute (8) ETOH abuse Current Visit: No Status: Chronic (9) Noncompliance with medication regimen Current Visit: No Status: Chronic Subjective Principal diagnosis: HFrEF Interval history: feel better Objective Vital Signs Temp Pulse Resp BP Pulse Ox 12/12/20 07:20 97.9 F 86 18 126/97 94 12/12/20 04:22 98.0 F 79 18 142/105 99 12/11/20 23:28 97.6 F 64 20 118/88 95 12/11/20 22:00 18 97 12/11/20 21:23 79 123/88 12/11/20 19:40 98.2 F 79 20 123/88 98 12/11/20 16:34 98.2 F 86 20 122/87 95 12/11/20 14:38 78 18 108/75 94 - Physical Examination General: No Apparent Distress HEENT: Positive: PERRL, Normocephaly, Mucus Membranes Moist Neck: Positive: neck supple, trachea midline Neuro: Positive: Grossly Intact Abdomen: Positive: Active Bowel Sounds, Other (abdominal swelling). Negative: Tender Skin: Negative: Rash, Wound Extremities: Present: upper extr. pulses, lower extr. pulses, +2 Edema (BLE ) - Imaging and Cardiology EKG: report reviewed, image reviewed Echo: report reviewed (11/21/2020: EF 20-25%, LV mod dilated, RV mod dilated, mild LVH, LA and RA mod dilated, mild MR, mod TR, mild pulm HTN RVSP 43mmHg) Cardiac cath: report reviewed (11/30/2020 which showed normal coronaries, EF 20- 25%) - EKG Sinus rhythms and dysrhythmias: sinus rhythm
[2020-12-12] MEDS: ENOXAPARIN 40 MG/0.4 ML INJ SUB-Q SCH (21:27)
--- NOTE | 2020-12-13 09:36 | Progress Note ---
Assessment and Plan Assessment and plan: The pt is a 39 YO male with a past medical history of HFrEF, dilated NICMP, normal coronaries via LHC 11/30/2020, HTN, COPD, tobacco use. He is followed in our office by Dr. Lopez. He presented with c/o progressively worsening SOB, orthopnea, BLE swelling for several weeks prior to arrival. Pt denies any chest pain, palpitations, n/v, diaphoresis, dizziness or syncope. CXR shows diffuse bilateral pulmonary opacities which are likely due to pulmonary edema, however, pt admitted as COVID-19 PUI and COVID testing has been ordered per primary. Of note, pt was admitted to [facility] earlier this month for eval/management of HFrEF and suspected RLE cellulitis. TTE done 11/21/2020 showed EF 20-25%. Pt underwent LHC 11/30/2020 which showed normal coronaries, EF 20-25% with moderately elevated LVEDP. Following LHC, additional diuresis and LifeVest placement was recommended. However, pt left AGAINST MEDICAL ADVICE because reportedly had to "take care of urgent business." Pt stated that he intended to return to the hospital later that day for completion of treatment but ultimately did not. Acute on chronic HFrEF. Nonischemic cardiomyopathy. Cardiac catheterization on 11/30/2020 revealed no angiographic evidence of significant epicardial coronary disease and severe global left ventricular hypokinesis with EF of 20 to 25%. No evidence of aortic stenosis and moderately elevated LVEDP. Hypertension COPD Obesity. 12/07: Patient will be admitted to telemetry floor and placed on the CHF pathway/protocol. Patient received IV diuresis and resume home medications. Cardiology consultation pending. 12/08: Continue Coreg, lisinopril, Aldactone and IV Lasix twice daily. Continue to follow BMP. BNP extremely elevated greater than 46,000. Continue GDMT for heart failure per cardiology recommendations. Check VQ scan given elevated D- dimer and elevated creatinine. 12/09. Patient is showing evidence of improvement in both lower extremities and abdominal ascites. Patient on Aldactone and Lasix. We will continue current dose. Follow-up BMP. 12/10. Ddimer elevated - BLE venous and arterial studies done 11/22/2020 were negative and VQ scan negative for PE. Continue IV dobutamine x72 hours, IV Bumex and Zaroxolyn per cardiology recommendations. Also continue Coreg and Aldactone but hold on JUSTO inhibitor/ARB in the setting of LILIBETH. 12/11. Optimize cardiac output and diuresis. Increase Bumex to 1mg IV TID, Increase Dobutamine gtt to 5mg x 48Hrs. Continue Zaroxalyn 2.5mg PO daily, coreg 25mg PO BID, aldactone 25mg PO daily. Repeat BMP in am. Strict I/Os. Cardiology following. COVID-19 testing negative on 12/07/2020. 12/12. Cardiology to discontinue dobutamine today. Continue diuresis with Bumex and Zaroxolyn. Continue aspirin, Coreg 25 mg p.o. twice daily and Zestril 10 mg daily. Physical therapy evaluation. 12/13. Discontinuation of dobutamine per cardiology. Continue diuresis. Continue aspirin, Coreg 25 mg p.o. twice daily and Zestril 10 mg daily. Await physical therapy evaluation. History Interval history: No new issues overnight. Hospitalist Physical - Constitutional Vitals: Temp Pulse Resp BP Pulse Ox 97.7 F 71 18 136/100 96 12/13/20 08:06 12/13/20 08:06 12/13/20 08:06 12/13/20 08:06 12/13/20 08:06 General appearance: Present: no acute distress - EENT Eyes: Present: PERRL, EOM intact ENT: hearing intact, clear oral mucosa, dentition normal - Neck Neck: Present: supple, normal ROM - Respiratory Respiratory effort: normal Respiratory: bilateral: CTA - Cardiovascular Rhythm: regular Heart Sounds: Present: S1 & S2. Absent: gallop, rub - Extremities Extremities: no ischemia, No edema, Full ROM - Abdominal General gastrointestinal: soft, non-tender, non-distended, normal bowel sounds - Integumentary Integumentary: Present: clear, warm, dry - Neurologic Neurologic: CNII-XII intact, moves all extremities HEART Score - HEART Score Troponin: Troponin T 0.073 ng/mL (0.00-0.029) H 12/11/20 05:24 Results - Labs CBC & Chem 7: 12/08/20 06:19 12/11/20 05:24 Labs: Laboratory Last Values WBC 7.6 K/mm3 (4.5-11.0) 12/08/20 06:19 RBC 2.88 M/mm3 (3.65-5.03) L 12/08/20 06:19 Hgb 9.5 gm/dl (11.8-15.2) L 12/08/20 06:19 Hct 27.9 % (35.5-45.6) L 12/08/20 06:19 MCV 97 fl (84-94) H 12/08/20 06:19 MCH 33 pg (28-32) H 12/08/20 06:19 MCHC 34 % (32-34) 12/08/20 06:19 RDW 17.3 % (13.2-15.2) H 12/08/20 06:19 Plt Count 205 K/mm3 (140-440) 12/08/20 06:19 Lymph % (Auto) 7.0 % (13.4-35.0) L 12/08/20 06:19 [place] % (Auto) 9.7 % (0.0-7.3) H 12/08/20 06:19 Eos % (Auto) 0.5 % (0.0-4.3) 12/08/20 06:19 Baso % (Auto) 0.4 % (0.0-1.8) 12/08/20 06:19 Lymph # (Auto) 0.5 K/mm3 (1.2-5.4) L 12/08/20 06:19 [place] # (Auto) 0.7 K/mm3 (0.0-0.8) 12/08/20 06:19 Eos # (Auto) 0.0 K/mm3 (0.0-0.4) 12/08/20 06:19 Baso # (Auto) 0.0 K/mm3 (0.0-0.1) 12/08/20 06:19 Seg Neutrophils % 82.4 % (40.0-70.0) H 12/08/20 06:19 Seg Neutrophils # 6.4 K/mm3 (1.8-7.7) 12/08/20 06:19 D-Dimer 1143.29 ng/mlDDU (0-234) H 12/07/20 08:18 Sodium 143 mmol/L (137-145) 12/11/20 05:24 Potassium 3.6 mmol/L (3.6-5.0) 12/11/20 05:24 Chloride 103.1 mmol/L (98-107) 12/11/20 05:24 Carbon Dioxide 29 mmol/L (22-30) 12/11/20 05:24 Anion Gap 15 mmol/L 12/11/20 05:24 BUN 19 mg/dL (9-20) 12/11/20 05:24 Creatinine 1.1 mg/dL (0.8-1.3) 12/11/20 05:24 Estimated GFR > 60 ml/min 12/11/20 05:24 BUN/Creatinine Ratio 17 % 12/11/20 05:24 Glucose 90 mg/dL (75-100) 12/11/20 05:24 Lactic Acid 1.50 mmol/L (0.7-2.0) 12/07/20 08:18 Calcium 7.9 mg/dL (8.4-10.2) L 12/11/20 05:24 Magnesium 2.10 mg/dL (1.7-2.3) 12/09/20 06:34 Ferritin 390.3 ng/mL (30.0-300.0) H 12/07/20 08:18 Total Bilirubin 0.80 mg/dL (0.1-1.2) 12/09/20 12:30 AST 19 units/L (5-40) 12/09/20 12:30 ALT 38 units/L (7-56) 12/09/20 12:30 Alkaline Phosphatase 212 units/L (35-129) H 12/09/20 12:30 Lactate Dehydrogenase 543 units/L (91-180) H 12/07/20 08:18 Total Creatine Kinase 96 units/L (55-170) 12/07/20 08:18 Troponin T 0.073 ng/mL (0.00-0.029) H 12/11/20 05:24 C-Reactive Protein 0.90 mg/dL (0.00-1.30) 12/07/20 08:18 NT-Pro-B Natriuret Pep 23138 pg/mL (0-450) H 12/10/20 06:47 Total Protein 5.4 g/dL (6.3-8.2) L 12/09/20 12:30 Albumin 3.0 g/dL (3.9-5) L 12/09/20 12:30 Albumin/Globulin Ratio 1.3 % 12/09/20 12:30 Triglycerides 178 mg/dL (2-149) H 12/07/20 08:18 Cholesterol 138 mg/dL (50-199) 12/07/20 08:18 LDL Cholesterol Direct 61 mg/dL (50-130) 12/07/20 08:18 HDL Cholesterol 51 mg/dL (40-59) 12/07/20 08:18 Cholesterol/HDL Ratio 2.70 % 12/07/20 08:18 Procalcitonin 0.31 ng/mL (<0.15) 12/07/20 08:18 Coronavirus (PCR) Negative (Negative) 12/07/20 09:45 Microbiology: Microbiology 12/07/20 08:17 Peripheral/Venous Blood Culture - Final NO GROWTH AFTER 5 DAYS 12/07/20 08:17 Peripheral/Venous Blood Culture - Final NO GROWTH AFTER 5 DAYS Hyatt/IV: Voiding Method Urinal Active Medications - Current Medications Current Medications: Generic Name Dose Route Start Last Admin Trade Name Freq PRN Reason Stop Dose Admin Acetaminophen 650 mg 12/07/20 09:00 Acetaminophen 325 Mg Tab PO Q4H PRN Pain MILD(1-3)/Fever >100.5/YU Aspirin 81 mg 12/08/20 10:00 12/12/20 09:05 Aspirin 81 Mg Tab Chew PO 81 mg QDAY AMRITA Administration Bumetanide 1 mg 12/10/20 14:00 12/12/20 23:37 Bumetanide 1 Mg/4 Ml Inj IV 1 mg TID AMRITA Administration Carvedilol 25 mg 12/07/20 22:00 12/12/20 21:22 Carvedilol 25 Mg Tab PO 25 mg Q12HR AMRITA Administration Enoxaparin Sodium 40 mg 12/08/20 22:00 12/12/20 21:27 Enoxaparin 40 Mg/0.4 Ml Inj SUB-Q 40 mg QHS AMRITA Administration Folic Acid 1 mg 12/07/20 10:00 12/12/20 09:05 Folic Acid 1 Mg Tab PO 1 mg QDAY AMRITA Administration Hydralazine HCl 5 mg 12/11/20 05:20 12/11/20 06:07 Hydralazine 20 Mg/1 Ml Inj IV 5 mg Q4H PRN Administration Blood Pressure Lisinopril 10 mg 12/07/20 16:00 12/12/20 11:11 Lisinopril 10 Mg Tab PO 10 mg QDAY AMRITA Administration Methocarbamol 750 mg 12/07/20 09:00 Methocarbamol 750 Mg Tab PO Q8H PRN Muscle Spasm Metolazone 2.5 mg 12/09/20 17:30 12/12/20 09:05 Metolazone 2.5 Mg Tab PO 2.5 mg QDAY AMRITA Administration Ondansetron HCl 4 mg 12/07/20 08:38 Ondansetron 4 Mg/2 Ml Inj IV Q8H PRN Nausea And Vomiting Sodium Chloride 10 ml 12/07/20 10:00 12/12/20 21:27 Sodium Chloride 0.9% 10 Ml Flush Syringe IV 10 ml BID AMRITA Administration Sodium Chloride 10 ml 12/07/20 08:38 12/09/20 04:51 Sodium Chloride 0.9% 10 Ml Flush Syringe IV 10 ml PRN PRN Administration LINE FLUSH Spironolactone 25 mg 12/07/20 10:00 12/12/20 09:05 Spironolactone 25 Mg Tab PO 25 mg QDAY AMRITA Administration Nutrition/Malnutrition Assess - Dietary Evaluation Nutrition/Malnutrition Findings: Nutrition Notes Start: 12/08/20 09:16 Freq: Status: Active Protocol: Document 12/08/20 09:16 CW (Rec: 12/08/20 09:19 CW [id number]) Nutrition Notes Need for Assessment generated from: billing associate Initial or Follow up Brief Note Current Diagnosis COPD,Hypertension,Heart Failure Other Pertinent Diagnosis Covid PUI, GERD Current Diet Cardiac diet Weight Status Obese Subjective/Other Information RN screen for skin risk. Skin is intact. Eliot score od 20. PO intake is excellent Current % PO Good (75-100%) Nutrition Intervention Revisit per MD consult or patient Sign Off request: Additional Comments S/O for skin intact and good PO intake
[2020-12-13] MEDS: BUMETANIDE 1 MG/4 ML INJ IV SCH ×3 (10:29→22:32)
[2020-12-13] MEDS: ASPIRIN 81 MG TAB CHEW PO SCH (10:33)
[2020-12-13] MEDS: carvediloL 25 MG TAB PO SCH ×2 (10:33→21:32)
[2020-12-13] MEDS: FOLIC ACID 1 MG TAB PO SCH (10:33)
[2020-12-13] MEDS: LISINOPRIL 10 MG TAB PO SCH (10:33)
[2020-12-13] MEDS: SPIRONOLACTONE 25 MG TAB PO SCH (10:33)
[2020-12-13] MEDS: metOLazone 2.5 MG TAB PO SCH (10:33)
--- NOTE | 2020-12-13 13:41 | Progress Note ---
Assessment and Plan The pt is a 39 YO male with a past medical history of HFrEF, dilated NICMP, normal coronaries via C 11/30/2020, HTN, COPD, tobacco use. He is followed in our office by Dr. Lopez. He presented with c/o progressively worsening SOB, orthopnea, BLE swelling for several weeks prior to arrival. Pt denies any chest pain, palpitations, n/v, diaphoresis, dizziness or syncope. CXR shows diffuse bilateral pulmonary opacities which are likely due to pulmonary edema. Covid 19 PCR is negative. Of note, pt was admitted to [facility] earlier this month for eval/management of HFrEF and suspected RLE cellulitis. TTE done 11/21/2020 showed EF 20-25%. Pt underwent LHC 11/30/2020 which showed normal coronaries, EF 20-25% with moderately elevated LVEDP. Following LHC, additional diuresis and LifeVest placement was recommended. However, pt left AGAINST MEDICAL ADVICE because reportedly had to "take care of urgent business." Pt stated that he intended to return to the hospital later that day for completion of treatment but ultimately did not. (12/13/2020) Pt resting comfortably in bed. No SOB, CP overnight. BLE edema is much improved. Pt reports significant relief of symptoms. Tele reviewed: Sinus Rhythm 82. 3beat run of VT noted overnight. Acute on chronic HFrEF BLE edema and SOB significantly improved weight down 11lbs overnight. I/Os - 6L over the weekend. Continue current diuretic regimen: Bumex 1mg IV TID, Zaroxalyn 2.5mg daily, Aldactone 25mg PO Daily. Continue strict I/Os. Repeat BMP in am. NICMP Continue BB, ACEI therapy. Pt is recommended to wear life vest in setting of severe NICMP with ventricular arrhythmia. Lifevest ordered. Elevated Troponin Troponin is elevated, nonspecific and subacute, trending down. Continue to monitor No. HTN Currently normotensive. Continue current antihypertensive regimen. DVT Prophylaxis. Continue Lovenox sq for DVT prophylaxis Tobacco use Cessation encouraged The patient has been seen in conjunction with Dr. Mary Reece who agrees with the assessment and plan of care. - Patient Problems (1) Acute on chronic HFrEF (heart failure with reduced ejection fraction) Current Visit: Yes Status: Acute (2) NICM (nonischemic cardiomyopathy) Current Visit: Yes Status: Chronic (3) Normal coronary arteries Current Visit: Yes Status: Chronic (4) Noncompliance with medication regimen Current Visit: Yes Status: Chronic (5) HTN (hypertension) Current Visit: Yes Status: Chronic Qualifiers: Hypertension type: essential hypertension Qualified Code(s): I10 - Essential (primary) hypertension (6) COPD (chronic obstructive pulmonary disease) Current Visit: Yes Status: Chronic (7) Elevated troponin Current Visit: Yes Status: Acute Plan to address problem: nonspecific (8) Tobacco use Current Visit: Yes Status: Chronic Plan to address problem: cessation encouraged (9) Elevated d-dimer Current Visit: Yes Status: Acute Subjective Date of service: 12/13/20 Principal diagnosis: HFrEF Interval history: Pt resting comfortably in bed. No SOB, CP overnight. BLE edema is much improved. Pt reports significant relief of symptoms. Tele reviewed: Sinus Rhythm 82. 3beat run of VT noted overnight. Objective Last Vital Signs Temp 97.7 F 12/13/20 08:06 Pulse 71 12/13/20 08:06 Resp 18 12/13/20 08:06 BP 136/100 12/13/20 10:33 Pulse Ox 97 12/13/20 10:00 - Physical Examination General: No Apparent Distress HEENT: Positive: PERRL, Normocephaly, Mucus Membranes Moist Neck: Positive: neck supple, trachea midline Cardiac: Positive: Reg Rate and Rhythm, S1/S2 Lungs: Positive: clear to auscultation, Normal Breath Sounds Neuro: Positive: Grossly Intact Abdomen: Positive: Unremarkable, Soft, Active Bowel Sounds, Other (abdominal swelling). Negative: Tender Skin: Negative: Rash, Wound Extremities: Present: upper extr. pulses, lower extr. pulses, +1 Edema - Imaging and Cardiology EKG: report reviewed, image reviewed Echo: report reviewed (11/21/2020: EF 20-25%, LV mod dilated, RV mod dilated, mild LVH, LA and RA mod dilated, mild MR, mod TR, mild pulm HTN RVSP 43mmHg) Cardiac cath: report reviewed (11/30/2020 which showed normal coronaries, EF 20- 25%) - Telemetry EKG Rhythm: Sinus Rhythm - EKG Sinus rhythms and dysrhythmias: sinus rhythm
[2020-12-13] MEDS: ENOXAPARIN 40 MG/0.4 ML INJ SUB-Q SCH (21:31)
[2020-12-14 07:09] LABS: BUN/Creatinine Ratio 24; Blood Urea Nitrogen 26 mg/dL (9-20); Calcium 8.4 mg/dL (8.4-10.2); Hemolysis Index 6
[2020-12-14] MEDS ORDERED: POTASSIUM CHLORIDE ER 20 MEQ TAB PO NR ×3 (08:00→13:00)
[2020-12-14] MEDS ORDERED: POTASSIUM CHLORIDE 10 MEQ 10 MEQ/100 ML BAG IV SCH (08:30)
--- NOTE | 2020-12-14 09:44 | Progress Note ---
Assessment and Plan The pt is a 39 YO male with a past medical history of HFrEF, dilated NICMP, normal coronaries via LHC 11/30/2020, HTN, COPD, tobacco use. He is followed in our office by Dr. Lopez. He presented with c/o progressively worsening SOB, orthopnea, BLE swelling for several weeks prior to arrival. Pt denies any chest pain, palpitations, n/v, diaphoresis, dizziness or syncope. CXR shows diffuse bilateral pulmonary opacities which are likely due to pulmonary edema. Covid 19 PCR is negative. Of note, pt was admitted to [facility] earlier this month for eval/management of HFrEF and suspected RLE cellulitis. TTE done 11/21/2020 showed EF 20-25%. Pt underwent LHC 11/30/2020 which showed normal coronaries, EF 20-25% with moderately elevated LVEDP. Following LHC, additional diuresis and LifeVest placement was recommended. However, pt left AGAINST MEDICAL ADVICE because reportedly had to "take care of urgent business." Pt stated that he intended to return to the hospital later that day for completion of treatment but ultimately did not. (12/14/2020) Pt resting comfortably in bed. No SOB, CP overnight. BLE edema is much improved. Pt reports significant relief of symptoms. Tele reviewed: Sinus Rhythm 88. 3beat run of VT noted overnight. Acute on chronic HFrEF BLE edema and SOB significantly improved weight down 6lbs overnight. I/Os -2L over last 24 hrs. Hold diuretics until evening dose in setting of hypokalemia. Pt appears to be nearing euvolemia. Discontinue IV Bumex and PO Zaroxalyn. Will resume Bumex 1mg PO bID with evening dose after potassium repletion in anticipation of discharge. Continue strict I/Os. Repeat BMP in am. NICMP Continue BB, ACEI therapy. Pt is recommended to wear life vest in setting of severe NICMP with ventricular arrhythmia. Lifevest ordered 12/14/20. Hypokalemia Potassium is 2.9 this am. Recommend IV Potassium repletion. However pt is adamant that he does not want IV potassium due to previous episodes of burning discomfort with infusion. Replete Potassium 40meq PO q4hr x 2 doses. Repeat Potassium lab in pm. Elevated Troponin Troponin is elevated, nonspecific and subacute, trending down. Continue to monitor No. HTN Currently normotensive. Continue current antihypertensive regimen. DVT Prophylaxis. Continue Lovenox sq for DVT prophylaxis Tobacco use Cessation encouraged Pt is in stable cardiac status. Anticipate discharge The patient has been seen in conjunction with Dr. Mary Reece who agrees with the assessment and plan of care. - Patient Problems (1) Acute on chronic HFrEF (heart failure with reduced ejection fraction) Current Visit: Yes Status: Acute (2) NICM (nonischemic cardiomyopathy) Current Visit: Yes Status: Chronic (3) Normal coronary arteries Current Visit: Yes Status: Chronic (4) Noncompliance with medication regimen Current Visit: Yes Status: Chronic (5) HTN (hypertension) Current Visit: Yes Status: Chronic Qualifiers: Hypertension type: essential hypertension Qualified Code(s): I10 - Essential (primary) hypertension (6) COPD (chronic obstructive pulmonary disease) Current Visit: Yes Status: Chronic (7) Elevated troponin Current Visit: Yes Status: Acute Plan to address problem: nonspecific (8) Tobacco use Current Visit: Yes Status: Chronic Plan to address problem: cessation encouraged (9) Elevated d-dimer Current Visit: Yes Status: Acute Subjective Date of service: 12/14/20 Principal diagnosis: HFrEF Interval history: Pt resting comfortably in bed. No SOB, CP overnight. BLE edema is much improved. Pt reports significant relief of symptoms. Tele reviewed: Sinus Rhythm 88. 3beat run of VT noted overnight. Objective Last Vital Signs Temp 98.5 F 12/14/20 08:01 Pulse 70 12/14/20 08:01 Resp 18 12/14/20 08:01 BP 131/96 12/14/20 08:01 Pulse Ox 99 12/14/20 08:46 - Physical Examination General: No Apparent Distress HEENT: Positive: PERRL, Normocephaly, Mucus Membranes Moist Neck: Positive: neck supple, trachea midline Cardiac: Positive: Reg Rate and Rhythm, S1/S2 Lungs: Positive: clear to auscultation, Normal Breath Sounds Neuro: Positive: Grossly Intact Abdomen: Positive: Unremarkable, Soft, Active Bowel Sounds, Other (abdominal swelling). Negative: Tender Skin: Negative: Rash, Wound Extremities: Present: upper extr. pulses, lower extr. pulses, +1 Edema - Labs and Meds Comprehensive Metabolic Panel 12/14/20 12/14/20 Range/Units 05:59 08:26 Sodium 143 (137-145) mmol/L Potassium 2.9 L* 3.3 L (3.6-5.0) mmol/L Chloride 99.0 (98-107) mmol/L Carbon Dioxide 35 H (22-30) mmol/L BUN 26 H (9-20) mg/dL Creatinine 1.1 (0.8-1.3) mg/dL Glucose 101 H (75-100) mg/dL Calcium 8.4 (8.4-10.2) mg/dL - Imaging and Cardiology EKG: report reviewed, image reviewed Echo: report reviewed (11/21/2020: EF 20-25%, LV mod dilated, RV mod dilated, mild LVH, LA and RA mod dilated, mild MR, mod TR, mild pulm HTN RVSP 43mmHg) Cardiac cath: report reviewed (11/30/2020 which showed normal coronaries, EF 20- 25%) - Telemetry EKG Rhythm: Sinus Rhythm - EKG Sinus rhythms and dysrhythmias: sinus rhythm
[2020-12-14] MEDS: SPIRONOLACTONE 25 MG TAB PO SCH (10:08)
[2020-12-14] MEDS: ASPIRIN 81 MG TAB CHEW PO SCH (10:08)
[2020-12-14] MEDS: LISINOPRIL 10 MG TAB PO SCH (10:08)
[2020-12-14] MEDS: metOLazone 2.5 MG TAB PO SCH (10:08)
[2020-12-14] MEDS: FOLIC ACID 1 MG TAB PO SCH (10:08)
[2020-12-14] MEDS: carvediloL 25 MG TAB PO SCH ×2 (10:08→22:15)
--- NOTE | 2020-12-14 13:52 | Progress Note ---
Assessment and Plan Assessment and plan: The pt is a 39 YO male with a past medical history of HFrEF, dilated NICMP, normal coronaries via LHC 11/30/2020, HTN, COPD, tobacco use. He is followed in our office by Dr. Lopez. He presented with c/o progressively worsening SOB, orthopnea, BLE swelling for several weeks prior to arrival. Pt denies any chest pain, palpitations, n/v, diaphoresis, dizziness or syncope. CXR shows diffuse bilateral pulmonary opacities which are likely due to pulmonary edema, however, pt admitted as COVID-19 PUI and COVID testing has been ordered per primary. Of note, pt was admitted to [facility] earlier this month for eval/management of HFrEF and suspected RLE cellulitis. TTE done 11/21/2020 showed EF 20-25%. Pt underwent LHC 11/30/2020 which showed normal coronaries, EF 20-25% with moderately elevated LVEDP. Following LHC, additional diuresis and LifeVest placement was recommended. However, pt left AGAINST MEDICAL ADVICE because reportedly had to "take care of urgent business." Pt stated that he intended to return to the hospital later that day for completion of treatment but ultimately did not. Acute on chronic HFrEF. Nonischemic cardiomyopathy. Cardiac catheterization on 11/30/2020 revealed no angiographic evidence of significant epicardial coronary disease and severe global left ventricular hypokinesis with EF of 20 to 25%. No evidence of aortic stenosis and moderately elevated LVEDP. Hypertension COPD Obesity. 12/07: Patient will be admitted to telemetry floor and placed on the CHF pathway/protocol. Patient received IV diuresis and resume home medications. Cardiology consultation pending. 12/08: Continue Coreg, lisinopril, Aldactone and IV Lasix twice daily. Continue to follow BMP. BNP extremely elevated greater than 46,000. Continue GDMT for heart failure per cardiology recommendations. Check VQ scan given elevated D- dimer and elevated creatinine. 12/09. Patient is showing evidence of improvement in both lower extremities and abdominal ascites. Patient on Aldactone and Lasix. We will continue current dose. Follow-up BMP. 12/10. Ddimer elevated - BLE venous and arterial studies done 11/22/2020 were negative and VQ scan negative for PE. Continue IV dobutamine x72 hours, IV Bumex and Zaroxolyn per cardiology recommendations. Also continue Coreg and Aldactone but hold on JUSTO inhibitor/ARB in the setting of LILIBETH. 12/11. Optimize cardiac output and diuresis. Increase Bumex to 1mg IV TID, Increase Dobutamine gtt to 5mg x 48Hrs. Continue Zaroxalyn 2.5mg PO daily, coreg 25mg PO BID, aldactone 25mg PO daily. Repeat BMP in am. Strict I/Os. Cardiology following. COVID-19 testing negative on 12/07/2020. 12/12. Cardiology to discontinue dobutamine today. Continue diuresis with Bumex and Zaroxolyn. Continue aspirin, Coreg 25 mg p.o. twice daily and Zestril 10 mg daily. Physical therapy evaluation. 12/13. Discontinuation of dobutamine per cardiology. Continue diuresis. Continue aspirin, Coreg 25 mg p.o. twice daily and Zestril 10 mg daily. Await physical therapy evaluation. 12/14. Remains on IV Bumex, metolazone and Aldactone. Awaiting LifeVest application. Cardiology following closely History Interval history: He has no complaints this morning Denies any shortness of breath or chest pain Potassium is low so this will be repleted Hospitalist Physical - Physical exam Narrative exam: VITAL SIGNS: Reviewed. GENERAL: Awake HEAD: No signs of head trauma. EYES: Pupils are equal. Extraocular motions intact. MOUTH: Oropharynx is normal. NECK: No adenopathy, no JVD. CHEST: Chest with diminished breath sounds bilaterally. No wheezes, rales, or rhonchi. CARDIAC: normal S1 and S2, without murmurs, gallops, or rubs. ABDOMEN: Soft, non tender and non distended. No rebound or guarding, and no masses palpated. Bowel Sounds normal. MUSCULOSKELETAL: Edema NEUROLOGIC EXAM: Alert and oriented x3. No focal neurologic deficits SKIN: No obvious lesions - Constitutional Vitals: Temp Pulse Resp BP Pulse Ox 98.0 F 86 18 109/75 96 12/14/20 11:22 12/14/20 11:22 12/14/20 11:22 12/14/20 11:22 12/14/20 11:22 HEART Score - HEART Score Troponin: Troponin T 0.073 ng/mL (0.00-0.029) H 12/11/20 05:24 Results - Labs CBC & Chem 7: 12/08/20 06:19 12/15/20 04:29 Labs: Laboratory Last Values WBC 7.6 K/mm3 (4.5-11.0) 12/08/20 06:19 RBC 2.88 M/mm3 (3.65-5.03) L 12/08/20 06:19 Hgb 9.5 gm/dl (11.8-15.2) L 12/08/20 06:19 Hct 27.9 % (35.5-45.6) L 12/08/20 06:19 MCV 97 fl (84-94) H 12/08/20 06:19 MCH 33 pg (28-32) H 12/08/20 06:19 MCHC 34 % (32-34) 12/08/20 06:19 RDW 17.3 % (13.2-15.2) H 12/08/20 06:19 Plt Count 205 K/mm3 (140-440) 12/08/20 06:19 Lymph % (Auto) 7.0 % (13.4-35.0) L 12/08/20 06:19 Maries % (Auto) 9.7 % (0.0-7.3) H 12/08/20 06:19 Eos % (Auto) 0.5 % (0.0-4.3) 12/08/20 06:19 Baso % (Auto) 0.4 % (0.0-1.8) 12/08/20 06:19 Lymph # (Auto) 0.5 K/mm3 (1.2-5.4) L 12/08/20 06:19 Maries # (Auto) 0.7 K/mm3 (0.0-0.8) 12/08/20 06:19 Eos # (Auto) 0.0 K/mm3 (0.0-0.4) 12/08/20 06:19 Baso # (Auto) 0.0 K/mm3 (0.0-0.1) 12/08/20 06:19 Seg Neutrophils % 82.4 % (40.0-70.0) H 12/08/20 06:19 Seg Neutrophils # 6.4 K/mm3 (1.8-7.7) 12/08/20 06:19 D-Dimer 1143.29 ng/mlDDU (0-234) H 12/07/20 08:18 Sodium 143 mmol/L (137-145) 12/14/20 05:59 Potassium 3.3 mmol/L (3.6-5.0) L 12/14/20 08:26 Chloride 99.0 mmol/L (98-107) 12/14/20 05:59 Carbon Dioxide 35 mmol/L (22-30) H 12/14/20 05:59 Anion Gap 12 mmol/L 12/14/20 05:59 BUN 26 mg/dL (9-20) H 12/14/20 05:59 Creatinine 1.1 mg/dL (0.8-1.3) 12/14/20 05:59 Estimated GFR > 60 ml/min 12/14/20 05:59 BUN/Creatinine Ratio 24 % 12/14/20 05:59 Glucose 101 mg/dL (75-100) H 12/14/20 05:59 Lactic Acid 1.50 mmol/L (0.7-2.0) 12/07/20 08:18 Calcium 8.4 mg/dL (8.4-10.2) 12/14/20 05:59 Magnesium 2.00 mg/dL (1.7-2.3) 12/14/20 05:59 Ferritin 390.3 ng/mL (30.0-300.0) H 12/07/20 08:18 Total Bilirubin 0.80 mg/dL (0.1-1.2) 12/09/20 12:30 AST 19 units/L (5-40) 12/09/20 12:30 ALT 38 units/L (7-56) 12/09/20 12:30 Alkaline Phosphatase 212 units/L (35-129) H 12/09/20 12:30 Lactate Dehydrogenase 543 units/L (91-180) H 12/07/20 08:18 Total Creatine Kinase 96 units/L (55-170) 12/07/20 08:18 Troponin T 0.073 ng/mL (0.00-0.029) H 12/11/20 05:24 C-Reactive Protein 0.90 mg/dL (0.00-1.30) 12/07/20 08:18 NT-Pro-B Natriuret Pep 44253 pg/mL (0-450) H 12/10/20 06:47 Total Protein 5.4 g/dL (6.3-8.2) L 12/09/20 12:30 Albumin 3.0 g/dL (3.9-5) L 12/09/20 12:30 Albumin/Globulin Ratio 1.3 % 12/09/20 12:30 Triglycerides 178 mg/dL (2-149) H 12/07/20 08:18 Cholesterol 138 mg/dL (50-199) 12/07/20 08:18 LDL Cholesterol Direct 61 mg/dL (50-130) 12/07/20 08:18 HDL Cholesterol 51 mg/dL (40-59) 12/07/20 08:18 Cholesterol/HDL Ratio 2.70 % 12/07/20 08:18 Procalcitonin 0.31 ng/mL (<0.15) 12/07/20 08:18 Coronavirus (PCR) Negative (Negative) 12/07/20 09:45 Hyatt/IV: Voiding Method Urinal Active Medications - Current Medications Current Medications: Generic Name Dose Route Start Last Admin Trade Name Freq PRN Reason Stop Dose Admin Acetaminophen 650 mg 12/07/20 09:00 Acetaminophen 325 Mg Tab PO Q4H PRN Pain MILD(1-3)/Fever >100.5/YU Aspirin 81 mg 12/08/20 10:00 12/14/20 10:08 Aspirin 81 Mg Tab Chew PO 81 mg QDAY AMRITA Administration Bumetanide 1 mg 12/14/20 18:00 Bumetanide 1 Mg Tab PO 0600,1800 AMRITA Carvedilol 25 mg 12/07/20 22:00 12/14/20 10:08 Carvedilol 25 Mg Tab PO 25 mg Q12HR AMRITA Administration Enoxaparin Sodium 40 mg 12/08/20 22:00 12/13/20 21:31 Enoxaparin 40 Mg/0.4 Ml Inj SUB-Q 40 mg QHS AMRITA Administration Folic Acid 1 mg 12/07/20 10:00 12/14/20 10:08 Folic Acid 1 Mg Tab PO 1 mg QDAY AMRITA Administration Hydralazine HCl 5 mg 12/11/20 05:20 12/11/20 06:07 Hydralazine 20 Mg/1 Ml Inj IV 5 mg Q4H PRN Administration Blood Pressure Lisinopril 10 mg 12/07/20 16:00 12/14/20 10:08 Lisinopril 10 Mg Tab PO 10 mg QDAY AMRITA Administration Methocarbamol 750 mg 12/07/20 09:00 Methocarbamol 750 Mg Tab PO Q8H PRN Muscle Spasm Ondansetron HCl 4 mg 12/07/20 08:38 Ondansetron 4 Mg/2 Ml Inj IV Q8H PRN Nausea And Vomiting Sodium Chloride 10 ml 12/07/20 10:00 12/14/20 10:08 Sodium Chloride 0.9% 10 Ml Flush Syringe IV 10 ml BID AMRITA Administration Sodium Chloride 10 ml 12/07/20 08:38 12/09/20 04:51 Sodium Chloride 0.9% 10 Ml Flush Syringe IV 10 ml PRN PRN Administration LINE FLUSH Spironolactone 25 mg 12/07/20 10:00 12/14/20 10:08 Spironolactone 25 Mg Tab PO 25 mg QDAY AMRITA Administration Nutrition/Malnutrition Assess - Dietary Evaluation Nutrition/Malnutrition Findings: Nutrition Notes Start: 12/08/20 09:16 Freq: Status: Active Protocol: Document 12/14/20 08:48 (Rec: 12/14/20 08:49 [email or web address]) Nutrition Notes Need for Assessment generated from: LOS Initial or Follow up Brief Note Subjective/Other Information Screen for LOS. Per chart, pt eating 75-100% of meals. Nutrition Intervention Revisit per MD consult or patient Sign Off request:
[2020-12-14] MEDS ORDERED: BUMETANIDE 1 MG/4 ML INJ IV SCH (18:00)
[2020-12-14] MEDS: ENOXAPARIN 40 MG/0.4 ML INJ SUB-Q SCH (22:15)
[2020-12-14] MEDS: BUMETANIDE 1 MG TAB PO SCH (22:15)
[2020-12-15 06:08] LABS: BUN/Creatinine Ratio 24; Blood Urea Nitrogen 29 mg/dL (9-20); Calcium 8.2 mg/dL (8.4-10.2); Hemolysis Index 6
[2020-12-15] MEDS: BUMETANIDE 1 MG TAB PO SCH (06:49)
[2020-12-15] MEDS ORDERED: POTASSIUM CHLORIDE ER 20 MEQ TAB PO NR ×3 (07:32→13:00)
[2020-12-15 08:15] VITALS: BP 145/107
[2020-12-15] MEDS: ASPIRIN 81 MG TAB CHEW PO SCH (09:40)
[2020-12-15] MEDS: carvediloL 25 MG TAB PO SCH (09:40)
[2020-12-15] MEDS: FOLIC ACID 1 MG TAB PO SCH (09:41)
[2020-12-15] MEDS: SPIRONOLACTONE 25 MG TAB PO SCH (09:41)
[2020-12-15] MEDS: LISINOPRIL 10 MG TAB PO SCH (09:41)
--- NOTE | 2020-12-15 10:07 | Progress Note ---
Assessment and Plan Assessment and plan: The pt is a 39 YO male with a past medical history of HFrEF, dilated NICMP, normal coronaries via LHC 11/30/2020, HTN, COPD, tobacco use. He is followed in our office by Dr. Lopez. He presented with c/o progressively worsening SOB, orthopnea, BLE swelling for several weeks prior to arrival. Pt denies any chest pain, palpitations, n/v, diaphoresis, dizziness or syncope. CXR shows diffuse bilateral pulmonary opacities which are likely due to pulmonary edema, however, pt admitted as COVID-19 PUI and COVID testing has been ordered per primary. Of note, pt was admitted to [facility] earlier this month for eval/management of HFrEF and suspected RLE cellulitis. TTE done 11/21/2020 showed EF 20-25%. Pt underwent LHC 11/30/2020 which showed normal coronaries, EF 20-25% with moderately elevated LVEDP. Following LHC, additional diuresis and LifeVest placement was recommended. However, pt left AGAINST MEDICAL ADVICE because reportedly had to "take care of urgent business." Pt stated that he intended to return to the hospital later that day for completion of treatment but ultimately did not. Acute on chronic HFrEF. Nonischemic cardiomyopathy. Cardiac catheterization on 11/30/2020 revealed no angiographic evidence of significant epicardial coronary disease and severe global left ventricular hypokinesis with EF of 20 to 25%. No evidence of aortic stenosis and moderately elevated LVEDP. Hypertension COPD Obesity. 12/07: Patient will be admitted to telemetry floor and placed on the CHF pathway/protocol. Patient received IV diuresis and resume home medications. Cardiology consultation pending. 12/08: Continue Coreg, lisinopril, Aldactone and IV Lasix twice daily. Continue to follow BMP. BNP extremely elevated greater than 46,000. Continue GDMT for heart failure per cardiology recommendations. Check VQ scan given elevated D- dimer and elevated creatinine. 12/09. Patient is showing evidence of improvement in both lower extremities and abdominal ascites. Patient on Aldactone and Lasix. We will continue current dose. Follow-up BMP. 12/10. Ddimer elevated - BLE venous and arterial studies done 11/22/2020 were negative and VQ scan negative for PE. Continue IV dobutamine x72 hours, IV Bumex and Zaroxolyn per cardiology recommendations. Also continue Coreg and Aldactone but hold on JUSTO inhibitor/ARB in the setting of LILIBETH. 12/11. Optimize cardiac output and diuresis. Increase Bumex to 1mg IV TID, Increase Dobutamine gtt to 5mg x 48Hrs. Continue Zaroxalyn 2.5mg PO daily, coreg 25mg PO BID, aldactone 25mg PO daily. Repeat BMP in am. Strict I/Os. Cardiology following. COVID-19 testing negative on 12/07/2020. 12/12. Cardiology to discontinue dobutamine today. Continue diuresis with Bumex and Zaroxolyn. Continue aspirin, Coreg 25 mg p.o. twice daily and Zestril 10 mg daily. Physical therapy evaluation. 12/13. Discontinuation of dobutamine per cardiology. Continue diuresis. Continue aspirin, Coreg 25 mg p.o. twice daily and Zestril 10 mg daily. Await physical therapy evaluation. 12/14. Remains on IV Bumex, metolazone and Aldactone. Awaiting LifeVest application. Cardiology following closely 12/15. K still low. Ordered replacement. On diuretics. Plan to switch to PO. Awaiting lifevest. History Interval history: He has no complaints this morning Eager to go home. Questions the need for LifeVest Denies any shortness of breath or chest pain Hospitalist Physical - Physical exam Narrative exam: VITAL SIGNS: Reviewed. GENERAL: Awake HEAD: No signs of head trauma. EYES: Pupils are equal. Extraocular motions intact. MOUTH: Oropharynx is normal. NECK: No adenopathy, no JVD. CHEST: Chest with diminished breath sounds bilaterally. No wheezes, rales, or rhonchi. CARDIAC: normal S1 and S2, without murmurs, gallops, or rubs. ABDOMEN: Soft, non tender and non distended. No rebound or guarding, and no masses palpated. Bowel Sounds normal. MUSCULOSKELETAL: Edema NEUROLOGIC EXAM: Alert and oriented x3. No focal neurologic deficits SKIN: No obvious lesions - Constitutional Vitals: Temp Pulse Resp BP Pulse Ox 98.2 F 76 18 145/107 97 12/15/20 08:08 12/15/20 08:08 12/15/20 08:08 12/15/20 08:08 12/15/20 09:16 General appearance: Present: no acute distress HEART Score - HEART Score Troponin: Troponin T 0.084 ng/mL (0.00-0.029) H 12/15/20 04:29 Results - Labs CBC & Chem 7: 12/08/20 06:19 12/15/20 04:29 Labs: Laboratory Last Values WBC 7.6 K/mm3 (4.5-11.0) 12/08/20 06:19 RBC 2.88 M/mm3 (3.65-5.03) L 12/08/20 06:19 Hgb 9.5 gm/dl (11.8-15.2) L 12/08/20 06:19 Hct 27.9 % (35.5-45.6) L 12/08/20 06:19 MCV 97 fl (84-94) H 12/08/20 06:19 MCH 33 pg (28-32) H 12/08/20 06:19 MCHC 34 % (32-34) 12/08/20 06:19 RDW 17.3 % (13.2-15.2) H 12/08/20 06:19 Plt Count 205 K/mm3 (140-440) 12/08/20 06:19 Lymph % (Auto) 7.0 % (13.4-35.0) L 12/08/20 06:19 Harlan % (Auto) 9.7 % (0.0-7.3) H 12/08/20 06:19 Eos % (Auto) 0.5 % (0.0-4.3) 12/08/20 06:19 Baso % (Auto) 0.4 % (0.0-1.8) 12/08/20 06:19 Lymph # (Auto) 0.5 K/mm3 (1.2-5.4) L 12/08/20 06:19 Harlan # (Auto) 0.7 K/mm3 (0.0-0.8) 12/08/20 06:19 Eos # (Auto) 0.0 K/mm3 (0.0-0.4) 12/08/20 06:19 Baso # (Auto) 0.0 K/mm3 (0.0-0.1) 12/08/20 06:19 Seg Neutrophils % 82.4 % (40.0-70.0) H 12/08/20 06:19 Seg Neutrophils # 6.4 K/mm3 (1.8-7.7) 12/08/20 06:19 D-Dimer 1143.29 ng/mlDDU (0-234) H 12/07/20 08:18 Sodium 143 mmol/L (137-145) 12/15/20 04:29 Potassium 3.2 mmol/L (3.6-5.0) L 12/15/20 04:29 Chloride 99.0 mmol/L (98-107) 12/15/20 04:29 Carbon Dioxide 33 mmol/L (22-30) H 12/15/20 04:29 Anion Gap 14 mmol/L 12/15/20 04:29 BUN 29 mg/dL (9-20) H 12/15/20 04:29 Creatinine 1.2 mg/dL (0.8-1.3) 12/15/20 04:29 Estimated GFR > 60 ml/min 12/15/20 04:29 BUN/Creatinine Ratio 24 % 12/15/20 04:29 Glucose 92 mg/dL (75-100) 12/15/20 04:29 Lactic Acid 1.50 mmol/L (0.7-2.0) 12/07/20 08:18 Calcium 8.2 mg/dL (8.4-10.2) L 12/15/20 04:29 Magnesium 2.20 mg/dL (1.7-2.3) 12/14/20 15:20 Ferritin 390.3 ng/mL (30.0-300.0) H 12/07/20 08:18 Total Bilirubin 0.80 mg/dL (0.1-1.2) 12/09/20 12:30 AST 19 units/L (5-40) 12/09/20 12:30 ALT 38 units/L (7-56) 12/09/20 12:30 Alkaline Phosphatase 212 units/L (35-129) H 12/09/20 12:30 Lactate Dehydrogenase 543 units/L (91-180) H 12/07/20 08:18 Total Creatine Kinase 96 units/L (55-170) 12/07/20 08:18 Troponin T 0.084 ng/mL (0.00-0.029) H 12/15/20 04:29 C-Reactive Protein 0.90 mg/dL (0.00-1.30) 12/07/20 08:18 NT-Pro-B Natriuret Pep 24699 pg/mL (0-450) H 12/10/20 06:47 Total Protein 5.4 g/dL (6.3-8.2) L 12/09/20 12:30 Albumin 3.0 g/dL (3.9-5) L 12/09/20 12:30 Albumin/Globulin Ratio 1.3 % 12/09/20 12:30 Triglycerides 178 mg/dL (2-149) H 12/07/20 08:18 Cholesterol 138 mg/dL (50-199) 12/07/20 08:18 LDL Cholesterol Direct 61 mg/dL (50-130) 12/07/20 08:18 HDL Cholesterol 51 mg/dL (40-59) 12/07/20 08:18 Cholesterol/HDL Ratio 2.70 % 12/07/20 08:18 Procalcitonin 0.31 ng/mL (<0.15) 12/07/20 08:18 Coronavirus (PCR) Negative (Negative) 12/07/20 09:45 Hyatt/IV: Voiding Method Urinal Active Medications - Current Medications Current Medications: Generic Name Dose Route Start Last Admin Trade Name Freq PRN Reason Stop Dose Admin Acetaminophen 650 mg 12/07/20 09:00 Acetaminophen 325 Mg Tab PO Q4H PRN Pain MILD(1-3)/Fever >100.5/YU Aspirin 81 mg 12/08/20 10:00 12/15/20 09:40 Aspirin 81 Mg Tab Chew PO 81 mg QDAY AMRITA Administration Bumetanide 1 mg 12/14/20 18:00 12/15/20 06:49 Bumetanide 1 Mg Tab PO 1 mg 0600,1800 AMRITA Administration Carvedilol 25 mg 12/07/20 22:00 12/15/20 09:40 Carvedilol 25 Mg Tab PO 25 mg Q12HR AMRITA Administration Enoxaparin Sodium 40 mg 12/08/20 22:00 12/14/20 22:15 Enoxaparin 40 Mg/0.4 Ml Inj SUB-Q 40 mg QHS AMRITA Administration Folic Acid 1 mg 12/07/20 10:00 12/15/20 09:41 Folic Acid 1 Mg Tab PO 1 mg QDAY AMRITA Administration Hydralazine HCl 5 mg 12/11/20 05:20 12/11/20 06:07 Hydralazine 20 Mg/1 Ml Inj IV 5 mg Q4H PRN Administration Blood Pressure Lisinopril 10 mg 12/07/20 16:00 12/15/20 09:41 Lisinopril 10 Mg Tab PO 10 mg QDAY AMRITA Administration Methocarbamol 750 mg 12/07/20 09:00 Methocarbamol 750 Mg Tab PO Q8H PRN Muscle Spasm Ondansetron HCl 4 mg 12/07/20 08:38 Ondansetron 4 Mg/2 Ml Inj IV Q8H PRN Nausea And Vomiting Potassium Chloride 40 meq 12/15/20 13:00 Potassium Chloride Er 20 Meq Tab PO 12/15/20 14:00 ONCE NR Sodium Chloride 10 ml 12/07/20 10:00 12/15/20 09:41 Sodium Chloride 0.9% 10 Ml Flush Syringe IV 10 ml BID AMRITA Administration Sodium Chloride 10 ml 12/07/20 08:38 12/09/20 04:51 Sodium Chloride 0.9% 10 Ml Flush Syringe IV 10 ml PRN PRN Administration LINE FLUSH Spironolactone 25 mg 12/07/20 10:00 12/15/20 09:41 Spironolactone 25 Mg Tab PO 25 mg QDAY AMRITA Administration Nutrition/Malnutrition Assess - Dietary Evaluation Nutrition/Malnutrition Findings: Nutrition Notes Start: 12/08/20 09 :16 Freq: Status: Active Protocol: Document 12/14/20 08:48 (Rec: 12/14/20 08:49 [id number]) Nutrition Notes Need for Assessment generated from: LOS Initial or Follow up Brief Note Subjective/Other Information Screen for LOS. Per chart, pt eating 75-100% of meals. Nutrition Intervention Revisit per MD consult or patient Sign Off request:
--- NOTE | 2020-12-15 12:42 | Discharge Summary ---
Providers - Providers Date of Admission: 12/07/20 08:38 Date of discharge: 12/15/20 Attending physician: MADAY RANGEL 12/07/20 07:57 Consult to Physician [CONS] Urgent Comment: Consulting Provider: NORIS RAO Physician Instructions: Reason For Exam: chf 12/12/20 09:50 Physical Therapy Evaluation and Treat [CONS] Routine Comment: Reason For Exam: Deconditioning. Primary care physician: SE[employer]ET[employer] COORDINATOR Hospitalization Condition: Fair Hospital course: The pt is a 39 YO male with a past medical history of HFrEF, dilated NICMP, normal coronaries via C 11/30/2020, HTN, COPD, tobacco use. He is followed in our office by Dr. Lopez. He presented with c/o progressively worsening SOB, orthopnea, BLE swelling for several weeks prior to arrival. Pt denies any chest pain, palpitations, n/v, diaphoresis, dizziness or syncope. CXR shows diffuse bilateral pulmonary opacities which are likely due to pulmonary edema, however, pt admitted as COVID-19 PUI and COVID testing has been ordered per primary. Of note, pt was admitted to [facility] earlier this month for eval/management of HFrEF and suspected RLE cellulitis. TTE done 11/21/2020 showed EF 20-25%. Pt underwent LHC 11/30/2020 which showed normal coronaries, EF 20-25% with moderately elevated LVEDP. Following LHC, additional diuresis and LifeVest placement was recommen ded. However, pt left AGAINST MEDICAL ADVICE because reportedly had to "take care of urgent business." Pt stated that he intended to return to the hospital later that day for completion of treatment but ultimately did not. Hospital course 12/07: Patient will be admitted to telemetry floor and placed on the CHF pathway/protocol. Patient received IV diuresis and resume home medications. Cardiology consultation pending. 12/08: Continue Coreg, lisinopril, Aldactone and IV Lasix twice daily. Continue to follow BMP. BNP extremely elevated greater than 46,000. Continue GDMT for heart failure per cardiology recommendations. Check VQ scan given elevated D- dimer and elevated creatinine. 12/09. Patient is showing evidence of improvement in both lower extremities and abdominal ascites. Patient on Aldactone and Lasix. We will continue current dose. Follow-up BMP. 12/10. Ddimer elevated - BLE venous and arterial studies done 11/22/2020 were negative and VQ scan negative for PE. Continue IV dobutamine x72 hours, IV Bumex and Zaroxolyn per cardiology recommendations. Also continue Coreg and Aldactone but hold on JUSTO inhibitor/ARB in the setting of LILIBETH. 12/11. Optimize cardiac output and diuresis. Increase Bumex to 1mg IV TID, Increase Dobutamine gtt to 5mg x 48Hrs. Continue Zaroxalyn 2.5mg PO daily, coreg 25mg PO BID, aldactone 25mg PO daily. Repeat BMP in am. Strict I/Os. Ca rdiology following. COVID-19 testing negative on 12/07/2020. 12/12. Cardiology to discontinue dobutamine today. Continue diuresis with Bumex and Zaroxolyn. Continue aspirin, Coreg 25 mg p.o. twice daily and Zestril 10 mg daily. Physical therapy evaluation. 12/13. Discontinuation of dobutamine per cardiology. Continue diuresis. Continue aspirin, Coreg 25 mg p.o. twice daily and Zestril 10 mg daily. Await physical therapy evaluation. 12/14. Remains on IV Bumex, metolazone and Aldactone. Awaiting LifeVest application. Cardiology following closely 12/15. Patient states he will not wear a lifeVest even if he has it. Still waiting for life vest to be made available. As per cardiology, he can be discharged on current medications to follow up with team in the office. Patient agrees with plan Disposition: - TO HOME OR SELFCARE Final Discharge Diagnosis (Prints w/discharge instructions): Acute on chronic systolic heart failure Time spent for discharge: 40 mins - Discharge Diagnoses (1) Acute on chronic HFrEF (heart failure with reduced ejection fraction) Status: Acute Core Measure Documentation - Palliative Care Palliative Care/ Comfort Measures: Not Applicable - Core Measures Any of the following diagnoses?: none Exam - Physical Exam Narrative exam: VITAL SIGNS: Reviewed. GENERAL: Awake HEAD: No signs of head trauma. EYES: Pupils are equal. Extraocular motions intact. MOUTH: Oropharynx is normal. NECK: No adenopathy, no JVD. CHEST: Chest with diminished breath sounds bilaterally. No wheezes, rales, or rhonchi. CARDIAC: normal S1 and S2, without murmurs, gallops, or rubs. ABDOMEN: Soft, non tender and non distended. No rebound or guarding, and no masses palpated. Bowel Sounds normal. MUSCULOSKELETAL: Edema NEUROLOGIC EXAM: Alert and oriented x3. No focal neurologic deficits SKIN: No obvious lesions - Constitutional Vitals: Temp Pulse Resp BP Pulse Ox 98.2 F 76 18 145/107 97 12/15/20 08:08 12/15/20 08:08 12/15/20 08:08 12/15/20 08:08 12/15/20 09:16 Plan Diet: low fat, low cholesterol, low salt Special Instructions: restrict fluid intake to, record daily weights, record daily BP diary Additional Instructions: Continue medications as prescribed. Follow up with cardiology in the office in 1-2 weeks Follow up with: PRIMARY CARE, [Primary Care Provider] - 3-5 Days Prescriptions: Aspirin [Aspirin BABY CHEW TAB] 81 mg PO QDAY 100 Days #30 tab.chew Bumetanide [Bumex 1 mg tab] 1 mg PO 0600,1800 #60 tablet carvediloL [Coreg] 25 mg PO Q12HR #60 tablet lisinopriL [Zestril TAB] 10 mg PO QDAY #30 tablet
--- NOTE | 2020-12-15 13:08 | Progress Note ---
Assessment and Plan The pt is a 39 YO male with a past medical history of HFrEF, dilated NICMP, normal coronaries via C 11/30/2020, HTN, COPD, tobacco use. He is followed in our office by Dr. Lopez. He presented with c/o progressively worsening SOB, orthopnea, BLE swelling for several weeks prior to arrival. Pt denies any chest pain, palpitations, n/v, diaphoresis, dizziness or syncope. CXR shows diffuse bilateral pulmonary opacities which are likely due to pulmonary edema. Covid 19 PCR is negative. Of note, pt was admitted to [facility] earlier this month for eval/management of HFrEF and suspected RLE cellulitis. TTE done 11/21/2020 showed EF 20-25%. Pt underwent LHC 11/30/2020 which showed normal coronaries, EF 20-25% with moderately elevated LVEDP. Following LHC, additional diuresis and LifeVest placement was recommended. However, pt left AGAINST MEDICAL ADVICE because reportedly had to "take care of urgent business." Pt stated that he intended to return to the hospital later that day for completion of treatment but ultimately did not. (12/14/2020) Pt resting comfortably in bed. No SOB, CP overnight. BLE edema is much improved. Pt reports significant relief of symptoms. Pt is requesting to be discharged. Lifevest is set to be placed today. I discussed pt's current cardiac status and prognosis including the risk of fatal arrhythmia and without recommended lifevest placement. Pt acknowledges his understanding and agrees to wait until this afternoon for lifevest, but insists on being discharged this afternoon. Tele reviewed: Sinus Rhythm 82. No events Acute on chronic HFrEF BLE edema and SOB significantly improved weight down 6lbs overnight. I/Os -2L over last 24 hrs. Hold diuretics until evening dose in setting of hypokalemia. Pt appears to be nearing euvolemia. Continue current cardiac regimen Bumex 1mg PO BID, Aldactone 25mg Daily, Coreg 25mg BID and Lisinopril 10mg Daily. Continue strict I/Os. NICMP Continue BB, ACEI therapy. Pt is recommended to wear life vest in setting of severe NICMP with ventricular arrhythmia. Lifevest ordered 12/14/20. Pt declines lifevest therapy as described above. Elevated Troponin Troponin is elevated, nonspecific and subacute, trending down. Continue to monitor No. HTN Currently normotensive. Continue current antihypertensive regimen. DVT Prophylaxis. Continue Lovenox sq for DVT prophylaxis Tobacco use Cessation encouraged Pt is in guarded cardiac status. He is requesting to be discharged today once life vest is placed. Pt should continue new diuretic regimen as above. Recommend pt f/u with Dr Lopez in our [place] office on 12/27/2020 at 2:45pm. The patient has been seen in conjunction with Dr. Mary Reece who agrees with the assessment and plan of care. - Patient Problems (1) Acute on chronic HFrEF (heart failure with reduced ejection fraction) Current Visit: Yes Status: Acute (2) NICM (nonischemic cardiomyopathy) Current Visit: Yes Status: Chronic (3) Normal coronary arteries Current Visit: Yes Status: Chronic (4) Noncompliance with medication regimen Current Visit: Yes Status: Chronic (5) HTN (hypertension) Current Visit: Yes Status: Chronic Qualifiers: Hypertension type: essential hypertension Qualified Code(s): I10 - Essential (primary) hypertension (6) COPD (chronic obstructive pulmonary disease) Current Visit: Yes Status: Chronic (7) Elevated troponin Current Visit: Yes Status: Acute Plan to address problem: nonspecific (8) Tobacco use Current Visit: Yes Status: Chronic Plan to address problem: cessation encouraged (9) Elevated d-dimer Current Visit: Yes Status: Acute Subjective Date of service: 12/15/20 Principal diagnosis: HFrEF Interval history: Pt resting comfortably in bed. No SOB, CP overnight. BLE edema is much improved. Pt reports significant relief of symptoms. Tele reviewed: Sinus Rhythm 82. No events Objective Last Vital Signs Temp 98.2 F 12/15/20 08:08 Pulse 76 12/15/20 08:08 Resp 18 12/15/20 08:08 BP 145/107 12/15/20 08:08 Pulse Ox 97 12/15/20 09:16 - Physical Examination General: No Apparent Distress HEENT: Positive: PERRL, Normocephaly, Mucus Membranes Moist Neck: Positive: neck supple, trachea midline Cardiac: Positive: Reg Rate and Rhythm, S1/S2 Lungs: Positive: clear to auscultation, Normal Breath Sounds Neuro: Positive: Grossly Intact Abdomen: Positive: Unremarkable, Soft, Active Bowel Sounds, Other (abdominal swelling). Negative: Tender Skin: Negative: Rash, Wound Extremities: Present: upper extr. pulses, lower extr. pulses, +1 Edema - Labs and Meds Comprehensive Metabolic Panel 12/14/20 12/15/20 Range/Units 15:20 04:29 Sodium 143 (137-145) mmol/L Potassium 3.4 L 3.2 L (3.6-5.0) mmol/L Chloride 99.0 (98-107) mmol/L Carbon Dioxide 33 H (22-30) mmol/L BUN 29 H (9-20) mg/dL Creatinine 1.2 (0.8-1.3) mg/dL Glucose 92 (75-100) mg/dL Calcium 8.2 L (8.4-10.2) mg/dL - Imaging and Cardiology EKG: report reviewed, image reviewed Echo: report reviewed (11/21/2020: EF 20-25%, LV mod dilated, RV mod dilated, mild LVH, LA and RA mod dilated, mild MR, mod TR, mild pulm HTN RVSP 43mmHg) Cardiac cath: report reviewed (11/30/2020 which showed normal coronaries, EF 20- 25%) - Telemetry EKG Rhythm: Sinus Rhythm - EKG Sinus rhythms and dysrhythmias: sinus rhythm
== END 2020-12-15 16:25 | disposition home health service (06) | DRG 293 ==
LOC: ED 03:36 → 3A 08:38 → 4A 12-08 22:18
PROVIDERS: ADMIT Hospitalist; ATTEND Internal Medicine
DX: I11.0 Hypertensive heart disease with heart failure (principal); I50.23 Acute on chronic systolic (congestive) heart failure; I42.8 Other cardiomyopathies; Z20.822 Contact with and (suspected) exposure to COVID-19; F17.200 Nicotine dependence, unspecified, uncomplicated; E66.9 Obesity, unspecified; J44.9 Chronic obstructive pulmonary disease, unspecified; Z79.899 Other long term (current) drug therapy; Z79.82 Long term (current) use of aspirin; Z91.19 Patient's noncompliance with other medical treatment and regimen; Z68.33 Body mass index [BMI] 33.0-33.9, adult
CPT/HCPCS: 36415; 71045; 78580; 80048; 80053; 80061; 82140; 82550; 82728; 82947; 83615; 83735; 83880; 84132; 84145; 84484; 85025; 85379; 86140; 87040; 93005; 96365; G0378; A9540; J0360; J0456; J0696; J1100; J1250; J1650; J1940; U0003

== ENCOUNTER 2021-02-28 13:22 | Inpatient (IN) | payer SELFPAY ==
[2021-02-28] MEDS ORDERED: SODIUM CHLORIDE 0.9% 500 ML 500 ML IV ONE (13:37)
--- NOTE | 2021-02-28 13:48 | Emergency Department Report ---
HPI - General Chief Complaint: Dyspnea/Respdistress Time Seen by Provider: 02/28/21 13:36 - HPI HPI: This is a 40-year-old -[place] male presents to the emergency department via EMS from home with a complaint of a 2 to 3-day history of progressively worsening shortness of breath and associated lower extremity swelling. He has a history of CHF, COPD, hypertension, previous NSTEMI but normal coronaries as of a left heart catheterization in November of this year. He has a former smoker and has a previous history of alcohol abuse. Patient follows with Dr. Lopez at [facility] cardiology. EMS found the patient to be hypoxic in the low 80s and the patient was breathing very fast. He was placed on 4 L oxygen via nasal cannula, which was then increased to 6 L upon presentation here. The patient was found to have a low-grade fever, so along with his tachycardia, a code sepsis was initiated. Patient says that he has increased shortness of breath with exertion or with laying flat. He denies any chest pain, cough, nausea, vomiting, abdominal pain. No recent travel or sick contacts at home. No known exposure to anyone with COVID-19. ED Past Medical Hx - Past Medical History Previous Medical History?: Yes Hx Hypertension: Yes Hx Congestive Heart Failure: Yes Hx Diabetes: No Hx GERD: Yes Hx Arthritis: Yes Hx Asthma: No Hx COPD: Yes Hx HIV: No - Surgical History Past Surgical History?: Yes Additional Surgical History: Hernia repair - Social History Smoking Status: Former Smoker Substance Use Type: None - Medications Home Medications: Home Medications Medication Instructions Recorded Confirmed Last Taken Type Folic Acid [Folvite] 1 mg PO QDAY #30 tablet 06/24/20 12/08/20 12/05/20 Rx methOCARBAMOL [Robaxin TAB] 750 mg PO Q8H PRN #90 tablet 06/24/20 12/08/20 10/25/20 Rx Spironolactone [Aldactone] 25 mg PO QDAY 11/21/20 12/08/20 12/05/20 History methOCARBAMOL [Robaxin TAB] 1 tab PO Q8HR PRN 11/21/20 12/08/20 10/25/20 History Aspirin [Aspirin BABY CHEW TAB] 81 mg PO QDAY 100 Days #30 tab.chew 12/15/20 Unknown Rx Bumetanide [Bumex 1 mg tab] 1 mg PO 0600,1800 #60 tablet 12/15/20 Unknown Rx carvediloL [Coreg] 25 mg PO Q12HR #60 tablet 12/15/20 Unknown Rx lisinopriL [Zestril TAB] 10 mg PO QDAY #30 tablet 12/15/20 Unknown Rx ED Review of Systems ROS: Stated complaint: WEAKNESS Other details as noted in HPI Comment: All other systems reviewed and negative Constitutional: denies: chills, fever Eyes: denies: eye pain, vision change ENT: denies: ear pain, throat pain Respiratory: orthopnea, shortness of breath, SOB with exertion Cardiovascular: edema. denies: chest pain Gastrointestinal: denies: abdominal pain, vomiting Genitourinary: denies: dysuria, discharge Musculoskeletal: denies: back pain, arthralgia Skin: denies: rash, lesions Neurological: denies: headache, weakness Physical Exam - Physical Exam Physical Exam: GENERAL: The patient is well-developed well-nourished, but appears distressed. HENT: Normocephalic. Atraumatic. Patient has moist mucous membranes. EYES: Extraocular motions are intact. NECK: Supple. Trachea is midline. CHEST/LUNGS: Coarse breath sounds throughout the chest. Patient is tripoding. There is tachypnea and conversational dyspnea. There is respiratory distress noted. HEART/CARDIOVASCULAR: Regular. There is no tachycardia. There is no murmur. ABDOMEN: Abdomen is soft, nontender. Patient has normal bowel sounds. SKIN: Skin is warm and dry. 4+ pitting edema to the bilateral lower extremities. NEURO: The patient is awake, alert, and oriented. The patient has no focal neurologic deficits. Normal speech. MUSCULOSKELETAL: There is no tenderness or deformity. There is no limitation range of motion. ED Course - Reevaluation(s) Reevaluation #1: 02/28/21 13:49 While a code sepsis was initiated secondary to a low-grade fever and tachycar randall, the patient should not receive any IV fluid resuscitation as he appears to have decompensated heart failure and has severe lower extremity edema. Therefore I have canceled the 500 cc bolus and the patient should not receive the 30 cc/kg bolus. Reevaluation #2: 02/28/21 16:02 This patient became progressively more confused. He was pulling off his BiPAP mask, his monitoring, pulse ox, and would not stay laying in bed. We were able to reposition him in the bed and get him back on the BiPAP, but he has an oxygen saturation of 88% and continued tachypnea at about 40 to 50 breaths/min, so the decision was made to intubate the patient. - Consultations Consultation #1: 02/28/21 19:14 I spoke to the card folder on-call for [facility], Dr. Reeves. She agrees that the patient does not require heparin due to the elevated troponin level, as the patient recently had a cardiac catheterization done in November of this year that showed normal coronary arteries. - ABG Interpretation Ph: [phone] PCO2: 47 PO2: 88 Bicarbonate: 21 Interpretation: respiratory acidosis (Mild), metabolic acidosis (mild) - Intubation Time Out Performed: Yes Sedative: Ketamine Mg Given: 100 Paralytic: Rocuronium Mg Given: 100 Laryngoscope: other ([place] scope) Size: 4 ET Tube Size: 7.5 Tube Secured Depth (cm): 24 Tube Secured Location: lips Tube Placement Confirmation: visualized tube passing t, equal breath sounds bilat, confirmation by capnometr Patient Tolerated Procedure: well Intubation Complications: none ED Medical Decision Making - Lab Data Result diagrams: 02/28/21 14:00 02/28/21 14:00 Lab Results 02/28/21 02/28/21 02/28/21 Range/Units 14:00 14:00 14:00 WBC 14.0 H (4.5-11.0) K/mm3 RBC 4.11 (3.65-5.03) M/mm3 Hgb 13.3 (11.8-15.2) gm/dl Hct 40.3 (35.5-45.6) % MCV 98 H (84-94) fl MCH 32 (28-32) pg MCHC 33 (32-34) % RDW 18.0 H (13.2-15.2) % Plt Count 193 (140-440) K/mm3 Add Manual Diff Complete Total Counted 100 Seg Neutrophils % [place] Seg Neuts % (Manual) 97.0 H (40.0-70.0) % Lymphocytes % (Manual) 2.0 L (13.4-35.0) % Monocytes % (Manual) 1.0 (0.0-7.3) % Nucleated RBC % Not Reportable Seg Neutrophils # Man 13.6 H (1.8-7.7) K/mm3 Band Neutrophils # 0.0 K/mm3 Lymphocytes # (Manual) 0.3 L (1.2-5.4) K/mm3 Abs React Lymphs (Man) 0.0 K/mm3 Monocytes # (Manual) 0.1 (0.0-0.8) K/mm3 Eosinophils # (Manual) 0.0 (0.0-0.4) K/mm3 Basophils # (Manual) 0.0 (0.0-0.1) K/mm3 Metamyelocytes # 0.0 K/mm3 Myelocytes # 0.0 K/mm3 Promyelocytes # 0.0 K/mm3 Blast Cells # 0.0 K/mm3 WBC Morphology Not Reportable Hypersegmented Neuts Not Reportable Hyposegmented Neuts Not Reportable Hypogranular Neuts Not Reportable Smudge Cells Not Reportable Toxic Granulation Not Reportable Toxic Vacuolation Not Reportable Dohle Bodies Not Reportable Pelger-Huet Anomaly Not Reportable Nadya Rods Not Reportable Platelet Estimate Consistent w auto Clumped Platelets Not Reportable Plt Clumps, EDTA Not Reportable Large Platelets Not Reportable Giant Platelets Not Reportable Platelet Satelliting Not Reportable Plt Morphology Comment Not Reportable RBC Morphology Normal Dimorphic RBCs Not Reportable Polychromasia Not Reportable Hypochromasia Not Reportable Poikilocytosis Not Reportable Anisocytosis Not Reportable Microcytosis Not Reportable Macrocytosis Not Reportable Spherocytes Not Reportable Pappenheimer Bodies Not Reportable Sickle Cells Not Reportable Target Cells Not Reportable Tear Drop Cells Not Reportable Ovalocytes Not Reportable Helmet Cells Not Reportable Boyd-[place]br[place] Bodies Not Reportable Rodney Rings Not Reportable Yan Cells Not Reportable Bite Cells Not Reportable Crenated Cell Not Reportable Elliptocytes Not Reportable Acanthocytes (Spur) Not Reportable Rouleaux Not Reportable Hemoglobin C Crystals Not Reportable Schistocytes Not Reportable Malaria parasites Not Reportable Louie Bodies Not Reportable Hem Pathologist Commnt No PT (12.2-14.9) Sec. INR (0.87-1.13) ABG pH (7.320-7.450) POC ABG pCO2 (32.0-48.0) mmHg POC ABG pO2 (83-108) mmHg POC ABG HCO3 ABG O2 Saturation (0-100) POC ABG Base Excess ABG Hemoglobin (12.0-17.5) ABG Oxyhemoglobin (94-98) ABG Methemoglobin (0.0-1.5) ABG Sodium (136.0-145.0) mmol/L ABG Potassium (3.40-4.50) mmol/L ABG Chloride (98-107) mmol/L ABG Glucose (65-95) mg/dL Carboxyhemoglobin (0.5-1.5) FiO2 % Sodium 135 L (137-145) mmol/L Potassium 4.0 (3.6-5.0) mmol/L Chloride 99.0 (98-107) mmol/L Carbon Dioxide 20 L (22-30) mmol/L Anion Gap 20 mmol/L BUN 38 H (9-20) mg/dL Creatinine 1.5 H (0.8-1.3) mg/dL Estimated GFR > 60 ml/min BUN/Creatinine Ratio 25 % Glucose 196 H (75-100) mg/dL Lactic Acid 1.90 (0.7-2.0) mmol/L Calcium 8.6 (8.4-10.2) mg/dL Total Bilirubin 1.00 (0.1-1.2) mg/dL AST 49 H (5-40) units/L ALT 60 H (7-56) units/L Alkaline Phosphatase 218 H (35-129) units/L Troponin T 0.103 H* (0.00-0.029) ng/mL NT-Pro-B Natriuret Pep (0-450) pg/mL Total Protein 6.4 (6.3-8.2) g/dL Albumin 3.0 L (3.9-5) g/dL Albumin/Globulin Ratio 0.9 % Arterial Blood Glucose (65-95) mg/dL Arterial Blood Ionized Calcium (4.6-5.3) mg/dL Urine Color (Yellow) Urine Turbidity (Clear) Urine pH (5.0-7.0) Ur Specific [place] (1.003-1.030) Urine Protein (Negative) mg/dL Urine Glucose (UA) (Negative) mg/dL Urine Ketones (Negative) mg/dL Urine Blood (Negative) Urine Nitrite (Negative) Urine Bilirubin (Negative) Urine Urobilinogen (<2.0) mg/dL Ur Leukocyte Esterase (Negative) Urine WBC (Auto) (0.0-6.0) /HPF Urine RBC (Auto) (0.0-6.0) /HPF U Epithel Cells (Auto) (0-13.0) /HPF Urine Bacteria (Auto) (Negative) /HPF Urine Mucus /HPF Urine Yeast (Budding) /HPF 02/28/21 02/28/21 02/28/21 Range/Units 14:00 14:00 16:07 WBC (4.5-11.0) K/mm3 RBC (3.65-5.03) M/mm3 Hgb (11.8-15.2) gm/dl Hct (35.5-45.6) % MCV (84-94) fl MCH (28-32) pg MCHC (32-34) % RDW (13.2-15.2) % Plt Count (140-440) K/mm3 Add Manual Diff Total Counted Seg Neutrophils % Seg Neuts % (Manual) (40.0-70.0) % Lymphocytes % (Manual) (13.4-35.0) % Monocytes % (Manual) (0.0-7.3) % Nucleated RBC % Seg Neutrophils # Man (1.8-7.7) K/mm3 Band Neutrophils # K/mm3 Lymphocytes # (Manual) (1.2-5.4) K/mm3 Abs React Lymphs (Man) K/mm3 Monocytes # (Manual) (0.0-0.8) K/mm3 Eosinophils # (Manual) (0.0-0.4) K/mm3 Basophils # (Manual) (0.0-0.1) K/mm3 Metamyelocytes # K/mm3 Myelocytes # K/mm3 Promyelocytes # K/mm3 Blast Cells # K/mm3 WBC Morphology Hypersegmented Neuts Hyposegmented Neuts Hypogranular Neuts Smudge Cells Toxic Granulation Toxic Vacuolation Dohle Bodies Pelger-Huet Anomaly Nadya Rods Platelet Estimate Clumped Platelets Plt Clumps, EDTA Large Platelets Giant Platelets Platelet Satelliting Plt Morphology Comment RBC Morphology Dimorphic RBCs Polychromasia Hypochromasia Poikilocytosis Anisocytosis Microcytosis Macrocytosis Spherocytes Pappenheimer Bodies Sickle Cells Target Cells Tear Drop Cells Ovalocytes Helmet Cells Boyd-Quebr[place] Bodies Rodney Rings [place] Cells Bite Cells Crenated Cell Elliptocytes Acanthocytes (Spur) Rouleaux Hemoglobin C Crystals Schistocytes Malaria parasites Louie Bodies Hem Pathologist Commnt PT 16.1 H (12.2-14.9) Sec. INR 1.24 H (0.87-1.13) ABG pH (7.320-7.450) POC ABG pCO2 (32.0-48.0) mmHg POC ABG pO2 (83-108) mmHg POC ABG HCO3 ABG O2 Saturation (0-100) POC ABG Base Excess ABG Hemoglobin (12.0-17.5) ABG Oxyhemoglobin (94-98) ABG Methemoglobin (0.0-1.5) ABG Sodium (136.0-145.0) mmol/L ABG Potassium (3.40-4.50) mmol/L ABG Chloride (98-107) mmol/L ABG Glucose (65-95) mg/dL Carboxyhemoglobin (0.5-1.5) FiO2 % Sodium (137-145) mmol/L Potassium (3.6-5.0) mmol/L Chloride (98-107) mmol/L Carbon Dioxide (22-30) mmol/L Anion Gap mmol/L BUN (9-20) mg/dL Creatinine (0.8-1.3) mg/dL Estimated GFR ml/min BUN/Creatinine Ratio % Glucose (75-100) mg/dL Lactic Acid 1.40 (0.7-2.0) mmol/L Calcium (8.4-10.2) mg/dL Total Bilirubin (0.1-1.2) mg/dL AST (5-40) units/L ALT (7-56) units/L Alkaline Phosphatase (35-129) units/L Troponin T (0.00-0.029) ng/mL NT-Pro-B Natriuret Pep > 16635 H (0-450) pg/mL Total Protein (6.3-8.2) g/dL Albumin (3.9-5) g/dL Albumin/Globulin Ratio % Arterial Blood Glucose (65-95) mg/dL Arterial Blood Ionized Calcium (4.6-5.3) mg/dL Urine Color (Yellow) Urine Turbidity (Clear) Urine pH (5.0-7.0) Ur Specific [place] (1.003-1.030) Urine Protein (Negative) mg/dL Urine Glucose (UA) (Negative) mg/dL Urine Ketones (Negative) mg/dL Urine Blood (Negative) Urine Nitrite (Negative) Urine Bilirubin (Negative) Urine Urobilinogen (<2.0) mg/dL Ur Leukocyte Esterase (Negative) Urine WBC (Auto) (0.0-6.0) /HPF Urine RBC (Auto) (0.0-6.0) /HPF U Epithel Cells (Auto) (0-13.0) /HPF Urine Bacteria (Auto) (Negative) /HPF Urine Mucus /HPF Urine Yeast (Budding) /HPF 02/28/21 02/28/21 Range/Units 16:07 17:59 WBC (4.5-11.0) K/mm3 RBC (3.65-5.03) M/mm3 Hgb (11.8-15.2) gm/dl Hct (35.5-45.6) % MCV (84-94) fl MCH (28-32) pg MCHC (32-34) % RDW (13.2-15.2) % Plt Count (140-440) K/mm3 Add Manual Diff Total Counted Seg Neutrophils % Seg Neuts % (Manual) (40.0-70.0) % Lymphocytes % (Manual) (13.4-35.0) % Monocytes % (Manual) (0.0-7.3) % Nucleated RBC % Seg Neutrophils # Man (1.8-7.7) K/mm3 Band Neutrophils # K/mm3 Lymphocytes # (Manual) (1.2-5.4) K/mm3 Abs React Lymphs (Man) K/mm3 Monocytes # (Manual) (0.0-0.8) K/mm3 Eosinophils # (Manual) (0.0-0.4) K/mm3 Basophils # (Manual) (0.0-0.1) K/mm3 Metamyelocytes # K/mm3 Myelocytes # K/mm3 Promyelocytes # K/mm3 Blast Cells # K/mm3 WBC Morphology Hypersegmented Neuts Hyposegmented Neuts Hypogranular Neuts Smudge Cells Toxic Granulation Toxic Vacuolation Dohle Bodies Pelger-Huet Anomaly Nadya Rods Platelet Estimate Clumped Platelets Plt Clumps, EDTA Large Platelets Giant Platelets Platelet Satelliting Plt Morphology Comment RBC Morphology Dimorphic RBCs Polychromasia Hypochromasia Poikilocytosis Anisocytosis Microcytosis Macrocytosis Spherocytes Pappenheimer Bodies Sickle Cells Target Cells Tear Drop Cells Ovalocytes Helmet Cells Boyd-Quebr[place] Bodies Rodney Rings [place] Cells Bite Cells Crenated Cell Elliptocytes Acanthocytes (Spur) Rouleaux Hemoglobin C Crystals Schistocytes Malaria parasites Louie Bodies Hem Pathologist Commnt PT (12.2-14.9) Sec. INR (0.87-1.13) ABG pH 7.265 L (7.320-7.450) POC ABG pCO2 47.5 (32.0-48.0) mmHg POC ABG pO2 88.8 (83-108) mmHg POC ABG HCO3 21.1 ABG O2 Saturation 94.5 (0-100) POC ABG Base Excess -6.0 ABG Hemoglobin 13.5 (12.0-17.5) ABG Oxyhemoglobin 93.4 L (94-98) ABG Methemoglobin 0.3 (0.0-1.5) ABG Sodium 134.9 L (136.0-145.0) mmol/L ABG Potassium 3.7 (3.40-4.50) mmol/L ABG Chloride 103.0 (98-107) mmol/L ABG Glucose 192 H (65-95) mg/dL Carboxyhemoglobin 0.9 (0.5-1.5) FiO2 % 100.0 Sodium (137-145) mmol/L Potassium (3.6-5.0) mmol/L Chloride (98-107) mmol/L Carbon Dioxide (22-30) mmol/L Anion Gap mmol/L BUN (9-20) mg/dL Creatinine (0.8-1.3) mg/dL Estimated GFR ml/min BUN/Creatinine Ratio % Glucose (75-100) mg/dL Lactic Acid (0.7-2.0) mmol/L Calcium (8.4-10.2) mg/dL Total Bilirubin (0.1-1.2) mg/dL AST (5-40) units/L ALT (7-56) units/L Alkaline Phosphatase (35-129) units/L Troponin T (0.00-0.029) ng/mL NT-Pro-B Natriuret Pep (0-450) pg/mL Total Protein (6.3-8.2) g/dL Albumin (3.9-5) g/dL Albumin/Globulin Ratio % Arterial Blood Glucose 192 H (65-95) mg/dL Arterial Blood Ionized Calcium 4.4 L (4.6-5.3) mg/dL Urine Color Dara (Yellow) Urine Turbidity Cloudy (Clear) Urine pH 5.0 (5.0-7.0) Ur Specific [place] 1.017 (1.003-1.030) Urine Protein >500 (Negative) mg/dL Urine Glucose (UA) Neg (Negative) mg/dL Urine Ketones Neg (Negative) mg/dL Urine Blood Sm (Negative) Urine Nitrite Neg (Negative) Urine Bilirubin Neg (Negative) Urine Urobilinogen < 2.0 (<2.0) mg/dL Ur Leukocyte Esterase Neg (Negative) Urine WBC (Auto) 6.0 (0.0-6.0) /HPF Urine RBC (Auto) 5.0 (0.0-6.0) /HPF U Epithel Cells (Auto) 2.0 (0-13.0) /HPF Urine Bacteria (Auto) 1+ (Negative) /HPF Urine Mucus Few /HPF Urine Yeast (Budding) 2+ /HPF - EKG Data -: EKG Interpreted by Me EKG shows normal: sinus rhythm, axis (Left axis deviation), intervals, QRS complexes (LVH), ST-T waves (Nonspecific ST T waves) Rate: tachycardia (130 bpm) - EKG Data When compared to previous EKG there are: no significant change (Other than current EKG shows tachycardia) Interpretation: unchanged when compared t (12/10/20 except for current EKG shows sinus tachycardia at 130 bpm) - Radiology Data Radiology results: image reviewed interpreted by me: Initial chest x-ray shows bilateral opacities with right greater than left. No widened mediastinum. No pneumothorax. The chest x-ray done post intubation shows worsening bilateral opacities. Appropriate placement of the endotracheal tube. - Medical Decision Making This patient presents to the emergency department with a few days of progressively worsening shortness of breath and lower extremity swelling. On examination he appears in some respiratory distress with coarse breath sounds, tachypnea, conversational dyspnea. Patient was placed on BiPAP but he could not tolerate it. He repeatedly was pulling it off, tripoding and becoming confused and agitated. If he did not have the CPAP on that the patient continued to have hypoxia. For these reasons the patient was intubated as per the procedure section. Chest x-ray shows bilateral patchy opacities that I believe are most consistent with interstitial edema. The initial chest x-ray was read as concern for pneumonia. Blood cultures were obtained and the patient was given a dose of Rocephin and azithromycin. The patient was also given Lasix for diuresis. The patient's labs shows a mild leukocytosis of 14,000, elevated troponin of about 0.1, a proBNP of greater than 7000. Patient will be admitted to the ICU and has been accepted for admission by the hospitalist, Dr. Barrett. Critical Care Time: Yes Critical care time in (mins) excluding proc time.: 40 Critical care attestation.: If time is entered above; I have spent that time in minutes in the direct care of this critically ill patient, excluding procedure time. Critical care time was spent on this patient in doing his initial evaluation, multiple reevaluations, ordering and interpretation of labs and imaging, supplemental oxygen and support by BiPAP, IV Lasix for diuresis, IV antibiotics, discussion with cardiology and the hospitalist service. This does not include the separately billable procedure of intubation. Critical Care Time: 40 minutes ED Disposition Clinical Impression: Hypoxia, Elevated troponin Acute respiratory failure Qualifiers: Respiratory failure complication: hypoxia Qualified Code(s): J96.01 - Acute respiratory failure with hypoxia CHF exacerbation Qualifiers: Heart failure type: unspecified Qualified Code(s): I50.9 - Heart failure, unspecified Disposition: OP ADMIT IP TO THIS HOSP Is pt being admited?: Yes Condition: Critical Time of Disposition: 19:17
[2021-02-28] MEDS ORDERED: LORazepam 2 MG/ML VIAL ONE (14:05)
[2021-02-28] MEDS ORDERED: LORazepam 2 MG/ML VIAL IV ONE ×2 (14:09→14:53)
[2021-02-28 14:15] LABS: Hematocrit 40.3 % (35.5-45.6); Hemoglobin 13.3 gm/dl (11.8-15.2); Mean Corpuscular HGB Conc 33 % (32-34); Mean Corpuscular Volume 98 fl (84-94); Platelet Count 193 K/mm3 (140-440); Red Blood Count 4.11 M/mm3 (3.65-5.03)
[2021-02-28] MEDS ORDERED: FUROSEMIDE 40 MG/4 ML INJ IV ONE (14:19)
[2021-02-28 14:24] LABS: INR 1.24 (0.87-1.13)
[2021-02-28 14:30] LABS: Alanine Aminotransferase 60 units/L (7-56); BUN/Creatinine Ratio 25; Blood Urea Nitrogen 38 mg/dL (9-20); Calcium 8.6 mg/dL (8.4-10.2); Hemolysis Index 22
[2021-02-28] MEDS ORDERED: cefTRIAXone/NS 1 GM/50 ML 1 GM/50 ML BAG IV ONE (14:34)
--- NOTE | 2021-02-28 14:45 | XRay Report ---
CHEST 1 VIEW 02/28/2021 1:56 PM INDICATION / CLINICAL INFORMATION: SOB. COMPARISON: 12/07/20 FINDINGS: SUPPORT DEVICES: None. HEART / MEDIASTINUM: Enlarged but stable. LUNGS / PLEURA: Airspace disease in the right upper lobe and right lung base with patchy density at t he left lung base. No pneumothorax. ADDITIONAL FINDINGS: No significant additional findings. IMPRESSION: 1. Right lung pneumonia with possible left basilar pneumonia. Signer Name: Shagufta Bonilla MD Signed: 02/28/2021 2:40 PM Workstation Name: [id number]
[2021-02-28] MEDS ORDERED: AZITHROMYCIN/NS 500 MG/250 ML 500 MG/250 ML BAG IV ONE (14:50)
[2021-02-28 14:57] LABS: Total Cells Counted 100
[2021-02-28 15:02] LABS: Platelet Estimate Consistent w Auto; RBC Morphology Normal
[2021-02-28] MEDS ORDERED: MIDAZOLAM 2 MG/2 ML INJ IV PRN (16:05)
[2021-02-28] MEDS ORDERED: MINERAL OIL/PETROLATUM, WHITE OPHTH OINT 3.5 GM OU PRN (16:05)
[2021-02-28] MEDS ORDERED: LIP THERAPY VASELINE TP PRN (16:05)
--- NOTE | 2021-02-28 16:31 | XRay Report ---
CHEST 1 VIEW 02/28/2021 4:00 PM INDICATION / CLINICAL INFORMATION: ETT placement. COMPARISON: 1:57 PM FINDINGS: SUPPORT DEVICES: Endotracheal tube has been placed with the tip 4.2 cm above the rikki in expected p osition. HEART / MEDIASTINUM: Stable. LUNGS / PLEURA: Interval worsening of bilateral pulmonary opacities. No pneumothorax. ADDITIONAL FINDINGS: No significant additional findings. IMPRESSION: 1. Endotracheal tube in expected position. 2. Interval worsening of bilateral pulmonary opacities. Signer Name: Shagufta Bonilla MD Signed: 02/28/2021 4:26 PM Workstation Name: [id number]
[2021-02-28] MEDS ORDERED: MIDAZOLAM 100 MG in SODIUM CHLORIDE 0.9% 80 ML IV SCH (17:00)
[2021-02-28 18:23] LABS: Bacteria,Urine 1+ /HPF (Negative); Bilirubin,Urine NEG (Negative); Blood,Urine SM (Negative); Color,Urine Amber (Yellow); Mucus,Urine FEW /HPF; Urobilinogen,Urine < 2.0 mg/dL (<2.0)
[2021-02-28 18:25] LABS: Protein,Urine >500 mg/dL (Negative)
[2021-02-28 19:51] LABS: Chol/HDL Ratio 4.12 %
--- NOTE | 2021-02-28 20:45 | Progress Note ---
Assessment and Plan Critical care treatment The high probability OF a clinically significant sudden or life-threatening deterioration of the cardiorespiratory system and endocrine system required my full and direct attention, intervention and postoperative management. The aggregate critical care time was 40 minutes. 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 Operator consult requested Patient could be extubated Weaning in progress (2) Acute on chronic HFrEF (heart failure with reduced ejection fraction) Current Visit: No Status: Acute Plan to address problem: IV Lasix for now Daily intake and output Daily weights Echocardiogram for ejection fraction Cardiology consult appreciated LVEF 25 to 30% (3) COPD (chronic obstructive pulmonary disease) Current Visit: Yes Status: Chronic Qualifiers: Emphysema type: unspecified Plan to address problem: Continue duo nebs and steroids (4) Hypertension Current Visit: Yes Status: Chronic Qualifiers: Hypertension type: primary hypertension Qualified Code(s): I10 - Essential (primary) hypertension Plan to address problem: Continue antihypertensives and adjust medications (5) Elevated troponin Current Visit: Yes Status: Acute Plan to address problem: May be a troponin leak We will get a CK and CK-MBs (6) LILIBETH (acute kidney injury) Current Visit: Yes Status: Acute Plan to address problem: Secondary to vasomotor nephropathy No IV fluids at this time because of the severe CHF (7) DVT prophylaxis Current Visit: Yes Status: Acute Plan to address problem: Heparin and GI prophylaxis Subjective Date of service: 03/01/21 Principal diagnosis: Acute respiratory failure with hypoxia Interval history: This is a 40-year-old -[place] male presents to the emergency department via EMS from home with a complaint of a 2 to 3-day history of progressively worsening shortness of breath and associated lower extremity swelling. He has a history of CHF, COPD, hypertension, previous NSTEMI but normal coronaries as of a left heart catheterization in November of this year. He has a former smoker and has a previous history of alcohol abuse. Patient follows with Dr. Lopez at [facility]. EMS found the patient to be hypoxic in the low 80s and the patient was breathing very fast. He was placed on 4 L oxygen via nasal cannula, which was then increased to 6 L upon presentation here. The patient was found to have a low-grade fever, so along with his tachycardia, a code sepsis was initiated. Patient says that he has increased shortness of b reath with exertion or with laying flat. He denies any chest pain, cough, nausea, vomiting, abdominal pain. No recent travel or sick contacts at home. No known exposure to anyone with COVID-19. 03/01/2021 Patient intubated On Lasix and duo nebs and steroids Objective - Constitutional Vitals: Vital Signs - 12hr 02/28/21 02/28/21 02/28/21 13:36 13:45 14:01 Temperature Pulse Rate 132 H Respiratory 39 H Rate Blood Pressure 151/112 151/112 O2 Sat by Pulse 88 90 96 Oximetry 02/28/21 02/28/21 02/28/21 14:04 14:16 14:37 Temperature Pulse Rate 64 125 H Respiratory 28 H Rate Blood Pressure 151/112 151/112 O2 Sat by Pulse 96 95 Oximetry 02/28/21 02/28/21 02/28/21 14:45 15:02 15:19 Temperature Pulse Rate 127 H Respiratory 45 H Rate Blood Pressure 151/112 119/94 119/94 O2 Sat by Pulse 94 91 Oximetry 02/28/21 02/28/21 02/28/21 15:31 15:45 16:01 Temperature Pulse Rate 124 H 121 H Respiratory 26 H 32 H 19 Rate Blood Pressure 131/108 142/115 142/115 O2 Sat by Pulse 88 91 81 L Oximetry 02/28/21 02/28/21 02/28/21 16:14 16:15 16:30 Temperature Pulse Rate 115 H 114 H 118 H Respiratory 8 L 20 Rate Blood Pressure 154/119 154/119 164/126 O2 Sat by Pulse 96 85 92 Oximetry 02/28/21 02/28/21 02/28/21 16:35 16:40 16:45 Temperature Pulse Rate 116 H 116 H 117 H Respiratory 20 20 20 Rate Blood Pressure 164/123 163/124 165/125 O2 Sat by Pulse 90 93 93 Oximetry 02/28/21 02/28/21 02/28/21 16:50 16:55 17:00 Temperature Pulse Rate 116 H 117 H 117 H Respiratory 20 20 20 Rate Blood Pressure 164/125 164/126 165/125 O2 Sat by Pulse 93 93 93 Oximetry 02/28/21 02/28/21 02/28/21 17:05 17:10 17:15 Temperature Pulse Rate 114 H 117 H 119 H Respiratory 20 20 19 Rate Blood Pressure 161/121 163/122 163/122 O2 Sat by Pulse 93 94 Oximetry 02/28/21 02/28/21 02/28/21 17:21 17:25 17:31 Temperature Pulse Rate 116 H 116 H 115 H Respiratory 19 20 19 Rate Blood Pressure 163/122 163/122 165/121 O2 Sat by Pulse 94 94 91 Oximetry 02/28/21 02/28/21 02/28/21 17:35 17:40 17:45 Temperature Pulse Rate 115 H 115 H 114 H Respiratory 16 21 23 Rate Blood Pressure 169/123 169/120 158/118 O2 Sat by Pulse 94 92 93 Oximetry 02/28/21 02/28/21 02/28/21 17:50 17:55 18:01 Temperature Pulse Rate 114 H 112 H 112 H Respiratory 22 19 30 H Rate Blood Pressure 151/115 142/109 133/103 O2 Sat by Pulse 93 94 97 Oximetry 02/28/21 02/28/21 02/28/21 18:05 18:11 18:15 Temperature Pulse Rate 110 H 110 H 112 H Respiratory 28 H 30 H 31 H Rate Blood Pressure 143/104 132/96 123/97 O2 Sat by Pulse 91 91 93 Oximetry 02/28/21 02/28/21 02/28/21 18:20 18:25 18:30 Temperature Pulse Rate 113 H 111 H 109 H Respiratory 25 H 32 H 32 H Rate Blood Pressure 128/96 122/84 115/91 O2 Sat by Pulse 92 92 90 Oximetry 02/28/21 02/28/21 02/28/21 18:35 18:41 18:45 Temperature Pulse Rate 113 H 109 H 110 H Respiratory 18 33 H 33 H Rate Blood Pressure 116/89 122/83 118/92 O2 Sat by Pulse 89 93 93 Oximetry 02/28/21 02/28/21 02/28/21 18:50 18:55 19:00 Temperature Pulse Rate 109 H 108 H 106 H Respiratory 34 H 34 H 31 H Rate Blood Pressure 118/99 118/99 126/101 O2 Sat by Pulse 90 93 94 Oximetry 02/28/21 02/28/21 02/28/21 19:15 19:20 19:30 Temperature 99.1 F Pulse Rate 101 H 101 H Respiratory 28 H 32 H Rate Blood Pressure 137/103 147/107 O2 Sat by Pulse 96 96 Oximetry 02/28/21 20:14 Temperature Pulse Rate 92 H Respiratory Rate Blood Pressure 125/98 O2 Sat by Pulse 99 Oximetry General appearance: Present: no acute distress, mild distress, well-nourished - EENT Eyes: PERRL, EOM intact ENT: hearing intact, clear oral mucosa Ears: bilateral: normal - Neck Neck: supple, normal ROM - Respiratory Respiratory effort: normal Respiratory: bilateral: CTA, rhonchi - Breasts Breasts: normal - Cardiovascular Heart rate: 78 Rhythm: regular Heart Sounds: Present: S1 & S2. Absent: gallop, rub Extremities: pulses intact, No edema, normal color, Full ROM - Gastrointestinal General gastrointestinal: Present: soft, non-tender, non-distended, normal bowel sounds - Genitourinary Male genitourinary: normal - Integumentary Integumentary: clear, warm, dry - Musculoskeletal Musculoskeletal: 1, strength equal bilaterally - Neurologic Neurologic: moves all extremities - Psychiatric Psychiatric: memory intact, appropriate mood/affect, intact judgment & insight - Labs CBC & Chem 7: 03/02/21 06:30 03/03/21 04:37 Labs: Abnormal lab results 02/28/21 02/28/21 02/28/21 Range/Units 14:00 14:00 14:00 WBC 14.0 H (4.5-11.0) K/mm3 MCV 98 H (84-94) fl RDW 18.0 H (13.2-15.2) % Seg Neuts % (Manual) 97.0 H (40.0-70.0) % Lymphocytes % (Manual) 2.0 L (13.4-35.0) % Seg Neutrophils # Man 13.6 H (1.8-7.7) K/mm3 Lymphocytes # (Manual) 0.3 L (1.2-5.4) K/mm3 PT 16.1 H (12.2-14.9) Sec. INR 1.24 H (0.87-1.13) ABG pH (7.320-7.450) ABG Oxyhemoglobin (94-98) ABG Sodium (136.0-145.0) mmol/L ABG Glucose (65-95) mg/dL Sodium 135 L (137-145) mmol/L Carbon Dioxide 20 L (22-30) mmol/L BUN 38 H (9-20) mg/dL Creatinine 1.5 H (0.8-1.3) mg/dL Glucose 196 H (75-100) mg/dL AST 49 H (5-40) units/L ALT 60 H (7-56) units/L Alkaline Phosphatase 218 H (35-129) units/L Troponin T 0.103 H* (0.00-0.029) ng/mL NT-Pro-B Natriuret Pep (0-450) pg/mL Albumin 3.0 L (3.9-5) g/dL Triglycerides (2-149) mg/dL HDL Cholesterol (40-59) mg/dL Arterial Blood Glucose (65-95) mg/dL Arterial Blood Ionized Calcium (4.6-5.3) mg/dL 02/28/21 02/28/21 02/28/21 Range/Units 14:00 16:07 19:04 WBC (4.5-11.0) K/mm3 MCV (84-94) fl RDW (13.2-15.2) % Seg Neuts % (Manual) (40.0-70.0) % Lymphocytes % (Manual) (13.4-35.0) % Seg Neutrophils # Man (1.8-7.7) K/mm3 Lymphocytes # (Manual) (1.2-5.4) K/mm3 PT (12.2-14.9) Sec. INR (0.87-1.13) ABG pH 7.265 L (7.320-7.450) ABG Oxyhemoglobin 93.4 L (94-98) ABG Sodium 134.9 L (136.0-145.0) mmol/L ABG Glucose 192 H (65-95) mg/dL Sodium (137-145) mmol/L Carbon Dioxide (22-30) mmol/L BUN (9-20) mg/dL Creatinine (0.8-1.3) mg/dL Glucose (75-100) mg/dL AST (5-40) units/L ALT (7-56) units/L Alkaline Phosphatase (35-129) units/L Troponin T 0.149 H* D (0.00-0.029) ng/mL NT-Pro-B Natriuret Pep > 46102 H (0-450) pg/mL Albumin (3.9-5) g/dL Triglycerides 179 H (2-149) mg/dL HDL Cholesterol 32 L (40-59) mg/dL Arterial Blood Glucose 192 H (65-95) mg/dL Arterial Blood Ionized Calcium 4.4 L (4.6-5.3) mg/dL HEART Score - HEART Score Troponin: Troponin T 0.149 ng/mL (0.00-0.029) H* D 02/28/21 19:04
[2021-02-28] MEDS ORDERED: METOCLOPRAMIDE 10 MG/2 ML INJ IV PRN (20:50)
[2021-02-28] MEDS ORDERED: ACETAMINOPHEN 325 MG TAB PO PRN (20:50)
[2021-02-28] MEDS ORDERED: HYDROmorphone 1 MG/1 ML INJ IV PRN (20:50)
[2021-02-28] MEDS ORDERED: ONDANSETRON 4 MG/2 ML INJ IV PRN (20:50)
[2021-02-28] MEDS ORDERED: IPRATROPIUM/ALBUTEROL SULFATE 3 ML AMPUL.NEB IH PRN (20:55)
[2021-02-28] MEDS ORDERED: POTASSIUM CHLORIDE ER 20 MEQ TAB PO SCH (21:00)
[2021-02-28] MEDS ORDERED: ALBUTEROL 2.5 MG/3 ML NEBU IH PRN (21:17)
--- NOTE | 2021-02-28 22:11 | XRay Report ---
ABDOMEN 1 VIEW(S) INDICATION / CLINICAL INFORMATION: confirm placement NGT to access to give scheduled. COMPARISON: None available. FINDINGS: TUBES / LINES: NG tube in satisfactory position. BOWEL GAS PATTERN: No significant abnormality. ADDITIONAL FINDINGS: No significant additional findings. Signer Name: Wayne Chowdhury MD Signed: 02/28/2021 10:06 PM Workstation Name: [id number]
[2021-02-28] MEDS: FAMOTIDINE 20 MG/2 ML INJ IV SCH (23:01)
[2021-02-28] MEDS: methylPREDNISolone Sod Succinate 125 MG/2 ML INJ IV SCH (23:01)
[2021-02-28] MEDS: carvediloL 25 MG TAB PO SCH (23:02)
[2021-02-28] MEDS: LISINOPRIL 10 MG TAB PO SCH (23:02)
[2021-02-28] MEDS: HEPARIN 5,000 UNIT/1 ML VIAL SUB-Q SCH (23:03)
--- NOTE | 2021-03-01 04:31 | XRay Report ---
XR chest 1V ap INDICATION / CLINICAL INFORMATION: follow up respiratory failure. COMPARISON: Radiograph from yesterday. FINDINGS: SUPPORT DEVICES: Unchanged. HEART / MEDIASTINUM: Unchanged. LUNGS / PLEURA: Lung parenchyma is not significantly changed with diffuse bilateral airspace disease. No pneumothorax. ADDITIONAL FINDINGS: No significant additional findings. IMPRESSION: 1. No significant interval change. Signer Name: Gus Mcgee MD Signed: 03/01/2021 4:27 AM Workstation Name: [id number]
[2021-03-01] MEDS: methylPREDNISolone Sod Succinate 125 MG/2 ML INJ IV SCH (05:05)
[2021-03-01] MEDS: FUROSEMIDE 40 MG/4 ML INJ IV SCH ×2 (05:05→17:17)
[2021-03-01] MEDS: IPRATROPIUM/ALBUTEROL SULFATE 3 ML AMPUL.NEB IH SCH ×2 (07:39→11:30)
--- NOTE | 2021-03-01 07:44 | History and Physical Report ---
History of Present Illness Date of examination: 02/28/21 Date of admission: 02/28/21 19:22 Chief complaint: Shortness of breath for 2 days History of present illness: This is a 40-year-old -[place] male presents to the emergency department via EMS from home with a complaint of a 2 to 3-day history of progressively worsening shortness of breath and associated lower extremity swelling. He has a history of CHF, COPD, hypertension, previous NSTEMI but normal coronaries as of a left heart catheterization in November of this year. He has a former smoker and has a previous history of alcohol abuse. Patient follows with Dr. Lopez at [facility] cardiology. EMS found the patient to be hypoxic in the low 80s and the patient was breathing very fast. He was placed on 4 L oxygen via nasal cannula, which was then increased to 6 L upon presentation here. The patient was found to have a low-grade fever, so along with his tachycardia, a code sepsis was initiated. Patient says that he has increased shortness of breath with exertion or with laying flat. He denies any chest pain, cough, nausea, vomiting, abdominal pain. No recent travel or sick contacts at home. No known exposure to anyone with COVID-19. - Past Medical History --Previous Medical History?: Yes --Hypertension: Yes --Congestive Heart Failure: Yes --COPD --GERD: Yes --Arthritis: Yes - Surgical History --Past Surgical History?: Yes --Additional Surgical History: Hernia repair - Social History --Smoking Status: Former Smoker --Substance Use Type: None - Medications Home Medications: Home Medications Medication Instructions Recorded Confirmed Last Taken Type Folic Acid [Folvite] 1 mg PO QDAY #30 tablet 06/24/20 12/08/20 12/05/20 Rx methOCARBAMOL [Robaxin TAB] 750 mg PO Q8H PRN #90 tablet 06/24/20 12/08/20 10/25/20 Rx Spironolactone [Aldactone] 25 mg PO QDAY 11/21/20 12/08/20 12/05/20 History methOCARBAMOL [Robaxin TAB] 1 tab PO Q8HR PRN 11/21/20 12/08/20 10/25/20 History Aspirin [Aspirin BABY CHEW TAB] 81 mg PO QDAY 100 Days #30 tab.chew 12/15/20 Unknown Rx Bumetanide [Bumex 1 mg tab] 1 mg PO 0600,1800 #60 tablet 12/15/20 Unknown Rx carvediloL [Coreg] 25 mg PO Q12HR #60 tablet 12/15/20 Unknown Rx lisinopriL [Zestril TAB] 10 mg PO QDAY #30 tablet 12/15/20 Unknown Rx Review of Systems ROS: Stated complaint: WEAKNESS Other details as noted in HPI Comment: All other systems reviewed and negative Constitutional: denies: chills, fever Eyes: denies: eye pain, vision change ENT: denies: ear pain, throat pain Respiratory: orthopnea, shortness of breath, SOB with exertion Cardiovascular: edema. denies: chest pain Gastrointestinal: denies: abdominal pain, vomiting Genitourinary: denies: dysuria, discharge Musculoskeletal: denies: back pain, arthralgia Skin: denies: rash, lesions Neurological: denies: headache, weakness Medications and Allergies Allergies Allergy/AdvReac Type Severity Reaction Status Date / Time No Known Allergies Allergy Verified 06/16/18 18:08 Home Medications Medication Instructions Recorded Confirmed Last Taken Type Folic Acid [Folvite] 1 mg PO QDAY #30 tablet 06/24/20 12/08/20 12/05/20 Rx methOCARBAMOL [Robaxin TAB] 750 mg PO Q8H PRN #90 tablet 06/24/20 12/08/20 10/25/20 Rx Spironolactone [Aldactone] 25 mg PO QDAY 11/21/20 12/08/20 12/05/20 History methOCARBAMOL [Robaxin TAB] 1 tab PO Q8HR PRN 11/21/20 12/08/20 10/25/20 History Aspirin [Aspirin BABY CHEW TAB] 81 mg PO QDAY 100 Days #30 tab.chew 12/15/20 Unknown Rx Bumetanide [Bumex 1 mg tab] 1 mg PO 0600,1800 #60 tablet 12/15/20 Unknown Rx carvediloL [Coreg] 25 mg PO Q12HR #60 tablet 12/15/20 Unknown Rx lisinopriL [Zestril TAB] 10 mg PO QDAY #30 tablet 12/15/20 Unknown Rx Active Meds: Active Medications Acetaminophen (Acetaminophen 325 Mg Tab) 650 mg PO Q4H PRN PRN Reason: Pain MILD(1-3)/Fever >100.5/YU Albuterol (Albuterol 2.5 Mg/3 Ml Nebu) 2.5 mg IH Q3HRT PRN PRN Reason: Shortness Of Breath Albuterol/Ipratropium (Ipratropium/Albuterol Sulfate 3 Ml Ampul.Neb) 1 ampul IH QIDRT [facility] Last Admin: 03/01/21 07:39 Dose: 1 ampul Documented by: Carvedilol (Carvedilol 25 Mg Tab) 25 mg PO Q12HR [facility] Last Admin: 02/28/21 23:02 Dose: 25 mg Documented by: Famotidine (Famotidine 20 Mg/2 Ml Inj) 20 mg IV BID [facility] Last Admin: 02/28/21 23:01 Dose: 20 mg Documented by: Furosemide (Furosemide 40 Mg/4 Ml Inj) 40 mg IV 0600,1800 [facility] Last Admin: 03/01/21 05:05 Dose: 40 mg Documented by: Heparin Sodium (Porcine) (Heparin 5,000 Unit/1 Ml Vial) 5,000 unit SUB-Q Q12HR [facility] Last Admin: 02/28/21 23:03 Dose: 5,000 unit Documented by: Hydromorphone HCl (Hydromorphone 1 Mg/1 Ml Inj) 0.5 mg IV Q3H PRN PRN Reason: Pain , Severe (7-10) Hydrophilic Ointment (Lip Therapy Vaseline) 1 applic TP Q2HR PRN PRN Reason: Dry Lips Midazolam HCl 100 mg/ Sodium (Chloride) 100 mls @ 2 mls/hr IV TITR [facility]; Protocol Last Titration: 02/28/21 20:50 Dose: 2 mg/hr, 2 mls/hr Documented by: Azithromycin (Zithromax/Ns) 500 mg in 250 mls @ 250 mls/hr IV Q24H [facility] Ceftriaxone Sodium (Rocephin/Ns 2 Gm/100 Ml) 2 gm in 100 mls @ 200 mls/hr IV Q24H [facility]; Protocol Lisinopril (Lisinopril 10 Mg Tab) 10 mg PO QDAY [facility] Last Admin: 02/28/21 23:02 Dose: 10 mg Documented by: Methylprednisolone Sodium Succinate (Methylprednisolone Sod Succinate 125 Mg/2 Ml Inj) 125 mg IV Q8HR [facility] Last Admin: 03/01/21 05:05 Dose: 125 mg Documented by: Metoclopramide HCl (Metoclopramide 10 Mg/2 Ml Inj) 10 mg IV Q6H PRN PRN Reason: Nausea And Vomiting Midazolam HCl (Midazolam 2 Mg/2 Ml Inj) 2 mg IV Q10MIN PRN PRN Reason: Sedation Morphine Sulfate (Morphine 2 Mg/1 Ml Inj) 2 mg IV Q4H PRN PRN Reason: Pain, Moderate (4-6) Multi-Ingred Cream/Lotion/Oil/Oint (Mineral Oil/Petrolatum, White Ophth Oint 3.5 Gm) 1 applic OU Q4HR PRN PRN Reason: Dry Eye(s) Ondansetron HCl (Ondansetron 4 Mg/2 Ml Inj) 4 mg IV Q8H PRN PRN Reason: Nausea And Vomiting Potassium Chloride (Potassium Chloride Er 20 Meq Tab) 20 meq PO Q12H [facility] Last Admin: 02/28/21 23:01 Dose: 20 meq Documented by: Sodium Chloride (Sodium Chloride 0.9% 10 Ml Flush Syringe) 10 ml IV BID [facility] Last Admin: 02/28/21 23:03 Dose: 10 ml Documented by: Sodium Chloride (Sodium Chloride 0.9% 10 Ml Flush Syringe) 10 ml IV PRN PRN PRN Reason: LINE FLUSH Spironolactone (Spironolactone 25 Mg Tab) 25 mg PO QDAY [facility] Exam - Constitutional Vitals: Temp Pulse Resp BP Pulse Ox 98.2 F 79 24 135/101 100 03/01/21 03:50 03/01/21 07:36 03/01/21 06:30 03/01/21 07:36 03/01/21 07:36 HEART Score - HEART Score Troponin: Troponin T 0.149 ng/mL (0.00-0.029) H* D 02/28/21 19:04 Results - Labs CBC & Chem 7: 02/28/21 14:00 02/28/21 14:00 Labs: Laboratory Last Values WBC 14.0 K/mm3 (4.5-11.0) H 02/28/21 14:00 RBC 4.11 M/mm3 (3.65-5.03) 02/28/21 14:00 Hgb 13.3 gm/dl (11.8-15.2) 02/28/21 14:00 Hct 40.3 % (35.5-45.6) 02/28/21 14:00 MCV 98 fl (84-94) H 02/28/21 14:00 MCH 32 pg (28-32) 02/28/21 14:00 MCHC 33 % (32-34) 02/28/21 14:00 RDW 18.0 % (13.2-15.2) H 02/28/21 14:00 Plt Count 193 K/mm3 (140-440) 02/28/21 14:00 Add Manual Diff Complete 02/28/21 14:00 Total Counted 100 02/28/21 14:00 Seg Neutrophils % [employer] 02/28/21 14:00 Seg Neuts % (Manual) 97.0 % (40.0-70.0) H 02/28/21 14:00 Lymphocytes % (Manual) 2.0 % (13.4-35.0) L 02/28/21 14:00 Monocytes % (Manual) 1.0 % (0.0-7.3) 02/28/21 14:00 Nucleated RBC % Not Reportable 02/28/21 14:00 Seg Neutrophils # Man 13.6 K/mm3 (1.8-7.7) H 02/28/21 14:00 Band Neutrophils # 0.0 K/mm3 02/28/21 14:00 Lymphocytes # (Manual) 0.3 K/mm3 (1.2-5.4) L 02/28/21 14:00 Abs React Lymphs (Man) 0.0 K/mm3 02/28/21 14:00 Monocytes # (Manual) 0.1 K/mm3 (0.0-0.8) 02/28/21 14:00 Eosinophils # (Manual) 0.0 K/mm3 (0.0-0.4) 02/28/21 14:00 Basophils # (Manual) 0.0 K/mm3 (0.0-0.1) 02/28/21 14:00 Metamyelocytes # 0.0 K/mm3 02/28/21 14:00 Myelocytes # 0.0 K/mm3 02/28/21 14:00 Promyelocytes # 0.0 K/mm3 02/28/21 14:00 Blast Cells # 0.0 K/mm3 02/28/21 14:00 WBC Morphology Not Reportable 02/28/21 14:00 Hypersegmented Neuts Not Reportable 02/28/21 14:00 Hyposegmented Neuts Not Reportable 02/28/21 14:00 Hypogranular Neuts Not Reportable 02/28/21 14:00 Smudge Cells Not Reportable 02/28/21 14:00 Toxic Granulation Not Reportable 02/28/21 14:00 Toxic Vacuolation Not Reportable 02/28/21 14:00 Dohle Bodies Not Reportable 02/28/21 14:00 Pelger-Huet Anomaly Not Reportable 02/28/21 14:00 Nadya Rods Not Reportable 02/28/21 14:00 Platelet Estimate Consistent w auto 02/28/21 14:00 Clumped Platelets Not Reportable 02/28/21 14:00 Plt Clumps, EDTA Not Reportable 02/28/21 14:00 Large Platelets Not Reportable 02/28/21 14:00 Giant Platelets Not Reportable 02/28/21 14:00 Platelet Satelliting Not Reportable 02/28/21 14:00 Plt Morphology Comment Not Reportable 02/28/21 14:00 RBC Morphology Normal 02/28/21 14:00 Dimorphic RBCs Not Reportable 02/28/21 14:00 Polychromasia Not Reportable 02/28/21 14:00 Hypochromasia Not Reportable 02/28/21 14:00 Poikilocytosis Not Reportable 02/28/21 14:00 Anisocytosis Not Reportable 02/28/21 14:00 Microcytosis Not Reportable 02/28/21 14:00 Macrocytosis Not Reportable 02/28/21 14:00 Spherocytes Not Reportable 02/28/21 14:00 Pappenheimer Bodies Not Reportable 02/28/21 14:00 Sickle Cells Not Reportable 02/28/21 14:00 Target Cells Not Reportable 02/28/21 14:00 Tear Drop Cells Not Reportable 02/28/21 14:00 Ovalocytes Not Reportable 02/28/21 14:00 Helmet Cells Not Reportable 02/28/21 14:00 [place] Bodies Not Reportable 02/28/21 14:00 [place] Rings Not Reportable 02/28/21 14:00 Yan Cells Not Reportable 02/28/21 14:00 Bite Cells Not Reportable 02/28/21 14:00 Crenated Cell Not Reportable 02/28/21 14:00 Elliptocytes Not Reportable 02/28/21 14:00 Acanthocytes (Spur) Not Reportable 02/28/21 14:00 Rouleaux Not Reportable 02/28/21 14:00 Hemoglobin C Crystals Not Reportable 02/28/21 14:00 Schistocytes Not Reportable 02/28/21 14:00 Malaria parasites Not Reportable 02/28/21 14:00 Louie Bodies Not Reportable 02/28/21 14:00 Hem Pathologist Commnt No 02/28/21 14:00 PT 16.1 Sec. (12.2-14.9) H 02/28/21 14:00 INR 1.24 (0.87-1.13) H 02/28/21 14:00 ABG pH 7.433 (7.320-7.450) 03/01/21 03:23 POC ABG pCO2 35.1 mmHg (32.0-48.0) 03/01/21 03:23 POC ABG pO2 147.5 mmHg (83-108) H 03/01/21 03:23 POC ABG HCO3 22.9 03/01/21 03:23 ABG O2 Saturation 99.0 (0-100) 03/01/21 03:23 POC ABG Base Excess -0.9 03/01/21 03:23 ABG Hemoglobin 12.2 (12.0-17.5) 03/01/21 03:23 ABG Oxyhemoglobin 98.7 (94-98) H 03/01/21 03:23 ABG Methemoglobin 0.3 (0.0-1.5) 03/01/21 03:23 ABG Sodium 137.8 mmol/L (136.0-145.0) 03/01/21 03:23 ABG Potassium 2.9 mmol/L (3.40-4.50) L 03/01/21 03:23 ABG Chloride 108.0 mmol/L (98-107) H 03/01/21 03:23 ABG Glucose 108 mg/dL (65-95) H 03/01/21 03:23 Carboxyhemoglobin 0 (0.5-1.5) L 03/01/21 03:23 FiO2 % 70.0 03/01/21 03:23 Sodium 135 mmol/L (137-145) L 02/28/21 14:00 Potassium 4.0 mmol/L (3.6-5.0) 02/28/21 14:00 Chloride 99.0 mmol/L (98-107) 02/28/21 14:00 Carbon Dioxide 20 mmol/L (22-30) L 02/28/21 14:00 Anion Gap 20 mmol/L 02/28/21 14:00 BUN 38 mg/dL (9-20) H 02/28/21 14:00 Creatinine 1.5 mg/dL (0.8-1.3) H 02/28/21 14:00 Estimated GFR > 60 ml/min 02/28/21 14:00 BUN/Creatinine Ratio 25 % 02/28/21 14:00 Glucose 196 mg/dL (75-100) H 02/28/21 14:00 POC Glucose 99 mg/dL (70-105) 03/01/21 00:15 Lactic Acid 1.40 mmol/L (0.7-2.0) 02/28/21 16:07 Calcium 8.6 mg/dL (8.4-10.2) 02/28/21 14:00 Total Bilirubin 1.00 mg/dL (0.1-1.2) 02/28/21 14:00 AST 49 units/L (5-40) H 02/28/21 14:00 ALT 60 units/L (7-56) H 02/28/21 14:00 Alkaline Phosphatase 218 units/L (35-129) H 02/28/21 14:00 Troponin T 0.149 ng/mL (0.00-0.029) H* D 02/28/21 19:04 NT-Pro-B Natriuret Pep > 98431 pg/mL (0-450) H 02/28/21 14:00 Total Protein 6.4 g/dL (6.3-8.2) 02/28/21 14:00 Albumin 3.0 g/dL (3.9-5) L 02/28/21 14:00 Albumin/Globulin Ratio 0.9 % 02/28/21 14:00 Triglycerides 179 mg/dL (2-149) H 02/28/21 19:04 Cholesterol 132 mg/dL (50-199) 02/28/21 19:04 LDL Cholesterol Direct 59 mg/dL (50-130) 02/28/21 19:04 HDL Cholesterol 32 mg/dL (40-59) L 02/28/21 19:04 Cholesterol/HDL Ratio 4.12 % 02/28/21 19:04 Arterial Blood Glucose 108 mg/dL (65-95) H 03/01/21 03:23 Arterial Blood Ionized Calcium 4.5 mg/dL (4.6-5.3) L 03/01/21 03:23 Urine Color Dara (Yellow) 02/28/21 17:59 Urine Turbidity Cloudy (Clear) 02/28/21 17:59 Urine pH 5.0 (5.0-7.0) 02/28/21 17:59 Ur Specific [place] 1.017 (1.003-1.030) 02/28/21 17:59 Urine Protein >500 mg/dL (Negative) 02/28/21 17:59 Urine Glucose (UA) Neg mg/dL (Negative) 02/28/21 17:59 Urine Ketones Neg mg/dL (Negative) 02/28/21 17:59 Urine Blood Sm (Negative) 02/28/21 17:59 Urine Nitrite Neg (Negative) 02/28/21 17:59 Urine Bilirubin Neg (Negative) 02/28/21 17:59 Urine Urobilinogen < 2.0 mg/dL (<2.0) 02/28/21 17:59 Ur Leukocyte Esterase Neg (Negative) 02/28/21 17:59 Urine WBC (Auto) 6.0 /HPF (0.0-6.0) 02/28/21 17:59 Urine RBC (Auto) 5.0 /HPF (0.0-6.0) 02/28/21 17:59 U Epithel Cells (Auto) 2.0 /HPF (0-13.0) 02/28/21 17:59 Urine Bacteria (Auto) 1+ /HPF (Negative) 02/28/21 17:59 Urine Mucus Few /HPF 02/28/21 17:59 Urine Yeast (Budding) 2+ /HPF 02/28/21 17:59 Short CBC 02/28/21 Range/Units 14:00 WBC 14.0 H (4.5-11.0) K/mm3 Hgb 13.3 (11.8-15.2) gm/dl Hct 40.3 (35.5-45.6) % Plt Count 193 (140-440) K/mm3 BMP 02/28/21 14:00 Sodium 135 L Potassium 4.0 Chloride 99.0 Carbon Dioxide 20 L BUN 38 H Creatinine 1.5 H Glucose 196 H Calcium 8.6 Cardiac Enzymes 02/28/21 02/28/21 Range/Units 14:00 19:04 Troponin T 0.103 H* 0.149 H* D (0.00-0.029) ng/mL Liver Function 02/28/21 Range/Units 14:00 Total Bilirubin 1.00 (0.1-1.2) mg/dL AST 49 H (5-40) units/L ALT 60 H (7-56) units/L Alkaline Phosphatase 218 H (35-129) units/L Albumin 3.0 L (3.9-5) g/dL Urine 02/28/21 Range/Units 17:59 Urine Color Dara (Yellow) Urine pH 5.0 (5.0-7.0) Ur Specific [place] 1.017 (1.003-1.030) Urine Protein >500 (Negative) mg/dL Urine Glucose (UA) Neg (Negative) mg/dL Microbiology: Microbiology 02/28/21 14:00 Peripheral/Venous Blood Culture - Preliminary Culture in Progress 02/28/21 14:00 Peripheral/Venous Blood Culture - Preliminary Culture in Progress Hyatt/IV: Voiding Method Indwelling Catheter Assessment and Plan Assessment and plan: Critical care treatment The high probability OF a clinically significant sudden or life-threatening deterioration of the cardiorespiratory system and endocrine system required my full and direct attention, intervention and postoperative management. The aggregate critical care time was 40 minutes. The time is in addition to time spent performing reported procedures but includes the followin: Data review and interpretation 2: Patient assessment and monitoring of vital signs 3: Documentation 4:: Medication orders and management Advance Directives: Yes (Full code) VTE prophylaxis?: Chemical Plan of care discussed with patient/family: Yes - Patient Problems (1) Acute respiratory failure with hypoxia Current Visit: Yes Status: Acute Plan to address problem: Patient sats were very low at the time of admission to the emergency room BiPAP did not improve Patient had to be intubated and patient is on vent management County Director Welfare consult requested (2) Acute on chronic HFrEF (heart failure with reduced ejection fraction) Current Visit: No Status: Acute Plan to address problem: IV Lasix for now Daily intake and output Daily weights Echocardiogram for ejection fraction Cardiology consult requested (3) COPD (chronic obstructive pulmonary disease) Current Visit: Yes Status: Chronic Qualifiers: Emphysema type: unspecified Plan to address problem: Continue duo nebs and steroids (4) Hypertension Current Visit: Yes Status: Chronic Qualifiers: Hypertension type: primary hypertension Qualified Code(s): I10 - Essential (primary) hypertension Plan to address problem: Continue antihypertensives and adjust medications (5) Elevated troponin Current Visit: Yes Status: Acute Plan to address problem: May be a troponin leak We will get a CK and CK-MBs (6) LILIBETH (acute kidney injury) Current Visit: Yes Status: Acute Plan to address problem: Secondary to vasomotor nephropathy No IV fluids at this time because of the severe CHF (7) DVT prophylaxis Current Visit: Yes Status: Acute Plan to address problem: Heparin and GI prophylaxis
[2021-03-01 09:25] LABS: Hematocrit 34.6 % (35.5-45.6); Hemoglobin 11.4 gm/dl (11.8-15.2); Mean Corpuscular HGB Conc 33 % (32-34); Mean Corpuscular Volume 97 fl (84-94); Platelet Count 163 K/mm3 (140-440); Red Blood Count 3.56 M/mm3 (3.65-5.03); Red Cell Distribution Width 18.1 % (13.2-15.2)
[2021-03-01 09:50] LABS: Creatine Kinase MB 2.3 ng/mL (0.0-4.0)
[2021-03-01 09:53] LABS: Albumin 2.9 g/dL (3.9-5); Calcium 8.4 mg/dL (8.4-10.2)
[2021-03-01] MEDS: ASPIRIN 81 MG TAB CHEW PO SCH (10:22)
[2021-03-01] MEDS: cefTRIAXone/NS 2 GM/100 ML 2 GM/100 ML BAG IV SCH (10:22)
[2021-03-01] MEDS: SPIRONOLACTONE 25 MG TAB PO SCH (10:22)
[2021-03-01] MEDS: FAMOTIDINE 20 MG/2 ML INJ IV SCH ×2 (10:23→21:57)
[2021-03-01] MEDS: HEPARIN 5,000 UNIT/1 ML VIAL SUB-Q SCH ×2 (10:23→21:57)
[2021-03-01] MEDS: carvediloL 25 MG TAB PO SCH ×2 (10:23→21:56)
[2021-03-01] MEDS: LISINOPRIL 10 MG TAB PO SCH (10:24)
[2021-03-01] MEDS ORDERED: VALSARTAN 160MG TAB PO SCH (12:00)
--- NOTE | 2021-03-01 12:18 | Consultation ---
History of Present Illness Consult date: 03/01/21 Requesting physician: APOORVA COHEN Reason for consult: other History of present illness: PULMONARY/CCM CONSULT NOTE (Full dictation # [id number]) Please see dictated notes for full details Medications and Allergies Allergies Allergy/AdvReac Type Severity Reaction Status Date / Time No Known Allergies Allergy Verified 06/16/18 18:08 Home Medications Medication Instructions Recorded Confirmed Last Taken Type Folic Acid [Folvite] 1 mg PO QDAY #30 tablet 06/24/20 12/08/20 12/05/20 Rx methOCARBAMOL [Robaxin TAB] 750 mg PO Q8H PRN #90 tablet 06/24/20 12/08/20 10/25/20 Rx Spironolactone [Aldactone] 25 mg PO QDAY 11/21/20 12/08/20 12/05/20 History methOCARBAMOL [Robaxin TAB] 1 tab PO Q8HR PRN 11/21/20 12/08/20 10/25/20 History Aspirin [Aspirin BABY CHEW TAB] 81 mg PO QDAY 100 Days #30 tab.chew 12/15/20 Unknown Rx Bumetanide [Bumex 1 mg tab] 1 mg PO 0600,1800 #60 tablet 12/15/20 Unknown Rx carvediloL [Coreg] 25 mg PO Q12HR #60 tablet 12/15/20 Unknown Rx lisinopriL [Zestril TAB] 10 mg PO QDAY #30 tablet 12/15/20 Unknown Rx Active Meds: Active Medications Acetaminophen (Acetaminophen 325 Mg Tab) 650 mg PO Q4H PRN PRN Reason: Pain MILD(1-3)/Fever >100.5/YU Albuterol (Albuterol 2.5 Mg/3 Ml Nebu) 2.5 mg IH Q3HRT PRN PRN Reason: Shortness Of Breath Albuterol/Ipratropium (Ipratropium/Albuterol Sulfate 3 Ml Ampul.Neb) 1 ampul IH QIDRT [facility] Last Admin: 03/01/21 11:30 Dose: 1 ampul Documented by: Aspirin (Aspirin 81 Mg Tab Chew) 81 mg PO QDAY [facility] Last Admin: 03/01/21 10:22 Dose: 81 mg Documented by: Atorvastatin Calcium (Atorvastatin 40 Mg Tab) 40 mg PO QHS [facility] Carvedilol (Carvedilol 25 Mg Tab) 25 mg PO Q12HR [facility] Last Admin: 03/01/21 10:23 Dose: 25 mg Documented by: Famotidine (Famotidine 20 Mg/2 Ml Inj) 20 mg IV BID [facility] Last Admin: 03/01/21 10:23 Dose: 20 mg Documented by: Furosemide (Furosemide 40 Mg/4 Ml Inj) 40 mg IV 0600,1800 [facility] Last Admin: 03/01/21 05:05 Dose: 40 mg Documented by: Heparin Sodium (Porcine) (Heparin 5,000 Unit/1 Ml Vial) 5,000 unit SUB-Q Q12HR [facility] Last Admin: 03/01/21 10:23 Dose: 5,000 unit Documented by: Hydromorphone HCl (Hydromorphone 1 Mg/1 Ml Inj) 0.5 mg IV Q3H PRN PRN Reason: Pain , Severe (7-10) Hydrophilic Ointment (Lip Therapy Vaseline) 1 applic TP Q2HR PRN PRN Reason: Dry Lips Midazolam HCl 100 mg/ Sodium (Chloride) 100 mls @ 2 mls/hr IV TITR [facility]; Protocol Last Titration: 02/28/21 20:50 Dose: 2 mg/hr, 2 mls/hr Documented by: Azithromycin (Zithromax/Ns) 500 mg in 250 mls @ 250 mls/hr IV Q24H [facility] Ceftriaxone Sodium (Rocephin/Ns 2 Gm/100 Ml) 2 gm in 100 mls @ 200 mls/hr IV Q24H [facility]; Protocol Last Admin: 03/01/21 10:22 Dose: 200 mls/hr Documented by: Lisinopril (Lisinopril 10 Mg Tab) 10 mg PO QDAY [facility] Last Admin: 03/01/21 10:24 Dose: 10 mg Documented by: Methylprednisolone Sodium Succinate (Methylprednisolone Sod Succinate 125 Mg/2 Ml Inj) 125 mg IV Q8HR [facility] Last Admin: 03/01/21 05:05 Dose: 125 mg Documented by: Metoclopramide HCl (Metoclopramide 10 Mg/2 Ml Inj) 10 mg IV Q6H PRN PRN Reason: Nausea And Vomiting Midazolam HCl (Midazolam 2 Mg/2 Ml Inj) 2 mg IV Q10MIN PRN PRN Reason: Sedation Morphine Sulfate (Morphine 2 Mg/1 Ml Inj) 2 mg IV Q4H PRN PRN Reason: Pain, Moderate (4-6) Multi-Ingred Cream/Lotion/Oil/Oint (Mineral Oil/Petrolatum, White Ophth Oint 3.5 Gm) 1 applic OU Q4HR PRN PRN Reason: Dry Eye(s) Ondansetron HCl (Ondansetron 4 Mg/2 Ml Inj) 4 mg IV Q8H PRN PRN Reason: Nausea And Vomiting Sodium Chloride (Sodium Chloride 0.9% 10 Ml Flush Syringe) 10 ml IV BID [facility] Last Admin: 03/01/21 10:24 Dose: 10 ml Documented by: Sodium Chloride (Sodium Chloride 0.9% 10 Ml Flush Syringe) 10 ml IV PRN PRN PRN Reason: LINE FLUSH Spironolactone (Spironolactone 25 Mg Tab) 25 mg PO QDAY [facility] Last Admin: 03/01/21 10:22 Dose: 25 mg Documented by: Valsartan (Valsartan 160mg Tab) 160 mg PO QDAY [facility] Last Admin: 03/01/21 12:05 Dose: 160 mg Documented by: Physical Examination Vital signs: Vital Signs Pulse Ox 88 02/28/21 13:36 Results - Laboratory Findings CBC and BMP: 03/01/21 08:29 03/01/21 08:29 ABG ABG pH 7.433 (7.320-7.450) 03/01/21 03:23 POC ABG pCO2 35.1 mmHg (32.0-48.0) 03/01/21 03:23 POC ABG pO2 147.5 mmHg (83-108) H 03/01/21 03:23 POC ABG HCO3 22.9 03/01/21 03:23 ABG O2 Saturation 99.0 (0-100) 03/01/21 03:23 PT/INR, D-dimer PT 16.1 Sec. (12.2-14.9) H 02/28/21 14:00 INR 1.24 (0.87-1.13) H 02/28/21 14:00 Abnormal lab findings: Abnormal Labs 02/28/21 02/28/21 02/28/21 14:00 14:00 14:00 WBC 14.0 H RBC Hgb Hct MCV 98 H RDW 18.0 H Seg Neuts % (Manual) 97.0 H Lymphocytes % (Manual) 2.0 L Seg Neutrophils # Man 13.6 H Lymphocytes # (Manual) 0.3 L PT 16.1 H INR 1.24 H ABG pH POC ABG pO2 ABG Oxyhemoglobin ABG Sodium ABG Potassium ABG Chloride ABG Glucose Carboxyhemoglobin Sodium 135 L Potassium Carbon Dioxide 20 L BUN 38 H Creatinine 1.5 H Glucose 196 H Hemoglobin A1c AST 49 H ALT 60 H Alkaline Phosphatase 218 H Total Creatine Kinase CK-MB (CK-2) Rel Index Troponin T 0.103 H* NT-Pro-B Natriuret Pep Total Protein Albumin 3.0 L Triglycerides HDL Cholesterol Arterial Blood Glucose Arterial Blood Ionized Calcium 02/28/21 02/28/21 02/28/21 14:00 16:07 19:04 WBC RBC Hgb Hct MCV RDW Seg Neuts % (Manual) Lymphocytes % (Manual) Seg Neutrophils # Man Lymphocytes # (Manual) PT INR ABG pH 7.265 L POC ABG pO2 ABG Oxyhemoglobin 93.4 L ABG Sodium 134.9 L ABG Potassium ABG Chloride ABG Glucose 192 H Carboxyhemoglobin Sodium Potassium Carbon Dioxide BUN Creatinine Glucose Hemoglobin A1c AST ALT Alkaline Phosphatase Total Creatine Kinase CK-MB (CK-2) Rel Index Troponin T 0.149 H* D NT-Pro-B Natriuret Pep > 99709 H Total Protein Albumin Triglycerides 179 H HDL Cholesterol 32 L Arterial Blood Glucose 192 H Arterial Blood Ionized Calcium 4.4 L 03/01/21 03/01/21 03/01/21 03:23 08:29 08:29 WBC 11.9 H RBC 3.56 L Hgb 11.4 L Hct 34.6 L MCV 97 H RDW 18.1 H Seg Neuts % (Manual) Lymphocytes % (Manual) Seg Neutrophils # Man Lymphocytes # (Manual) PT INR ABG pH POC ABG pO2 147.5 H ABG Oxyhemoglobin 98.7 H ABG Sodium ABG Potassium 2.9 L ABG Chloride 108.0 H ABG Glucose 108 H Carboxyhemoglobin 0 L Sodium 146 H D Potassium 3.0 L D Carbon Dioxide BUN 42 H Creatinine 1.6 H Glucose Hemoglobin A1c AST 58 H ALT 74 H Alkaline Phosphatase 174 H Total Creatine Kinase CK-MB (CK-2) Rel Index Troponin T NT-Pro-B Natriuret Pep Total Protein 5.0 L D Albumin 2.9 L Triglycerides HDL Cholesterol Arterial Blood Glucose 108 H Arterial Blood Ionized Calcium 4.5 L 03/01/21 03/01/21 08:29 08:29 WBC RBC Hgb Hct MCV RDW Seg Neuts % (Manual) Lymphocytes % (Manual) Seg Neutrophils # Man Lymphocytes # (Manual) PT INR ABG pH POC ABG pO2 ABG Oxyhemoglobin ABG Sodium ABG Potassium ABG Chloride ABG Glucose Carboxyhemoglobin Sodium Potassium Carbon Dioxide BUN Creatinine Glucose Hemoglobin A1c 6.4 H AST ALT Alkaline Phosphatase Total Creatine Kinase 43 L CK-MB (CK-2) Rel Index 5.3 H Troponin T NT-Pro-B Natriuret Pep Total Protein Albumin Triglycerides HDL Cholesterol Arterial Blood Glucose Arterial Blood Ionized Calcium
[2021-03-01 12:51] LABS: Band Neutrophils # (Manual) 0.4 K/mm3; Promyelocytes # (Manual) 39.5 K/mm3; Total Cells Counted 100
[2021-03-01] MEDS ORDERED: fentaNYL 100 MCG/2 ML INJ IV PRN (12:51)
[2021-03-01 12:52] LABS: Toxic Granulation 1+; Toxic Vacuolation Few
[2021-03-01 12:53] LABS: Burr Cells 1+; Large Platelets Few; Ovalocytes 1+; Platelet Estimate Cons; Target Cells 1+
[2021-03-01] MEDS ORDERED: ALBUTEROL 2.5 MG/3 ML NEBU IH PRN (12:53)
[2021-03-01] MEDS: POTASSIUM CHLORIDE 20 MEQ PACKET FEEDTUBE SCH ×2 (13:27→17:28)
[2021-03-01] MEDS: fentaNYL DRIP Premix 2,000 MCG/100 ML BAG IV SCH ×2 (13:30→21:58)
[2021-03-01] MEDS ORDERED: ATROPINE 0.1% (1 MG/10 ML) CARDIAC SYRINGE ONE (13:37)
--- NOTE | 2021-03-01 15:09 | Consultation ---
History of Present Illness Consult date: 03/01/21 Requesting physician: APOORVA COHEN Consult reason: elevated troponin History of present illness: This patient is a 40-year-old male with a significant history of HF R EF, dilated nonischemic cardiomyopathy, normal coronaries via [facility] 11/30/2020, hypertension, COPD, tobacco use. Patient is followed in our office by Dr Vimal charles. Patient presents to [facility] ER via EMS after patient was found to be in acute hypoxic respiratory failure O2 sat 80s with tachycardia and fever. Patient endorsed orthopnea but denies any chest pain, cough, nausea, vomiting, abdominal pain, recent illness or known exposures. Patient was initially treated with CPAP, but due to increasing confusion and agitation this decision was made to intubate in the emergency room. Cardiology is consulted for elevated troponins. At time of interview patient is intubated and sedated thus HPI is obtained via the chart. Of note, patient has been recommended for LifeVest due to severe cardiomyopathy but has refused in the pas t. Patient has a documented history of medication noncompliance and abandonment of care AGAINST MEDICAL ADVICE. Past History Past Medical History: other (See HPI) Medications and Allergies Allergies Allergy/AdvReac Type Severity Reaction Status Date / Time No Known Allergies Allergy Verified 06/16/18 18:08 Home Medications Medication Instructions Recorded Confirmed Last Taken Type Folic Acid [Folvite] 1 mg PO QDAY #30 tablet 06/24/20 12/08/20 12/05/20 Rx methOCARBAMOL [Robaxin TAB] 750 mg PO Q8H PRN #90 tablet 06/24/20 12/08/20 10/25/20 Rx Spironolactone [Aldactone] 25 mg PO QDAY 11/21/20 12/08/20 12/05/20 History methOCARBAMOL [Robaxin TAB] 1 tab PO Q8HR PRN 11/21/20 12/08/20 10/25/20 History Aspirin [Aspirin BABY CHEW TAB] 81 mg PO QDAY 100 Days #30 tab.chew 12/15/20 Unknown Rx Bumetanide [Bumex 1 mg tab] 1 mg PO 0600,1800 #60 tablet 12/15/20 Unknown Rx carvediloL [Coreg] 25 mg PO Q12HR #60 tablet 12/15/20 Unknown Rx lisinopriL [Zestril TAB] 10 mg PO QDAY #30 tablet 12/15/20 Unknown Rx Active Meds: Active Medications Acetaminophen (Acetaminophen 325 Mg Tab) 650 mg PO Q4H PRN PRN Reason: Pain MILD(1-3)/Fever >100.5/YU Albuterol (Albuterol 2.5 Mg/3 Ml Nebu) 2.5 mg IH Q4HRT PRN PRN Reason: Shortness Of Breath Arformoterol Tartrate (Arformoterol 15 Mcg/2 Ml Nebu) 15 mcg IH Q12HRT [facility] Aspirin (Aspirin 81 Mg Tab Chew) 81 mg PO QDAY [facility] Last Admin: 03/01/21 10:22 Dose: 81 mg Documented by: Atorvastatin Calcium (Atorvastatin 40 Mg Tab) 40 mg PO QHS [facility] Budesonide (Budesonide 0.5 Mg/2 Ml Nebu) 0.5 mg IH Q12HRT [facility] Carvedilol (Carvedilol 25 Mg Tab) 25 mg PO Q12HR [facility] Last Admin: 03/01/21 10:23 Dose: 25 mg Documented by: Famotidine (Famotidine 20 Mg/2 Ml Inj) 20 mg IV BID [facility] Last Admin: 03/01/21 10:23 Dose: 20 mg Documented by: Fentanyl (Fentanyl 100 Mcg/2 Ml Inj) 50 mcg IV Q10MIN PRN PRN Reason: ANALGESIA Furosemide (Furosemide 40 Mg/4 Ml Inj) 40 mg IV 0600,1800 [facility] Last Admin: 03/01/21 05:05 Dose: 40 mg Documented by: Heparin Sodium (Porcine) (Heparin 5,000 Unit/1 Ml Vial) 5,000 unit SUB-Q Q12HR [facility] Last Admin: 03/01/21 10:23 Dose: 5,000 unit Documented by: Hydromorphone HCl (Hydromorphone 1 Mg/1 Ml Inj) 0.5 mg IV Q3H PRN PRN Reason: Pain , Severe (7-10) Hydrophilic Ointment (Lip Therapy Vaseline) 1 applic TP Q2HR PRN PRN Reason: Dry Lips Azithromycin (Zithromax/Ns) 500 mg in 250 mls @ 250 mls/hr IV Q24H [facility] Ceftriaxone Sodium (Rocephin/Ns 2 Gm/100 Ml) 2 gm in 100 mls @ 200 mls/hr IV Q24H [facility]; Protocol Last Admin: 03/01/21 10:22 Dose: 200 mls/hr Documented by: Fentanyl Citrate (Fentanyl Drip Premix) 2,000 mcg in 100 mls @ 5.185 mls/hr IV TITR [facility]; Protocol Lisinopril (Lisinopril 10 Mg Tab) 10 mg PO QDAY [facility] Last Admin: 03/01/21 10:24 Dose: 10 mg Documented by: Metoclopramide HCl (Metoclopramide 10 Mg/2 Ml Inj) 10 mg IV Q6H PRN PRN Reason: Nausea And Vomiting Morphine Sulfate (Morphine 2 Mg/1 Ml Inj) 2 mg IV Q4H PRN PRN Reason: Pain, Moderate (4-6) Multi-Ingred Cream/Lotion/Oil/Oint (Mineral Oil/Petrolatum, White Ophth Oint 3.5 Gm) 1 applic OU Q4HR PRN PRN Reason: Dry Eye(s) Ondansetron HCl (Ondansetron 4 Mg/2 Ml Inj) 4 mg IV Q8H PRN PRN Reason: Nausea And Vomiting Potassium Chloride (Potassium Chloride 20 Meq Packet) 40 meq FEEDTUBE Q4H [facility] Stop: 03/01/21 17:01 Last Admin: 03/01/21 13:27 Dose: 40 meq Documented by: Prednisone (Prednisone 20 Mg Tab) 20 mg PO QDAY [facility] Stop: 03/04/21 10:01 Sodium Chloride (Sodium Chloride 0.9% 10 Ml Flush Syringe) 10 ml IV BID [facility] Last Admin: 03/01/21 10:24 Dose: 10 ml Documented by: Sodium Chloride (Sodium Chloride 0.9% 10 Ml Flush Syringe) 10 ml IV PRN PRN PRN Reason: LINE FLUSH Spironolactone (Spironolactone 25 Mg Tab) 25 mg PO QDAY [facility] Last Admin: 03/01/21 10:22 Dose: 25 mg Documented by: Valsartan (Valsartan 160mg Tab) 160 mg PO QDAY [facility] Last Admin: 03/01/21 12:05 Dose: 160 mg Documented by: Review of Systems ROS unobtainable: due to endotracheal tube, due to mental status Physical Examination Last Vital Signs Temp 98.8 F 03/01/21 12:00 Pulse 72 03/01/21 14:20 Resp 24 03/01/21 11:30 BP 132/97 03/01/21 14:20 Pulse Ox 100 03/01/21 14:20 General appearance: other (Patient is intubated and sedated) HEENT: Positive: Normocephaly, Mucus Membranes Moist Neck: Positive: neck supple, trachea midline Cardiac: Positive: Reg Rate and Rhythm, S1/S2 Lungs: Positive: Ventilated Respirations Neuro: Positive: Other (Intubated and sedated) Abdomen: Positive: Distended Extremities: Present: upper extr. pulses, lower extr. pulses, +3 Edema Results 03/01/21 08:29 03/01/21 08:29 Cardiac Enzymes 03/01/21 03/01/21 Range/Units 08:29 08:29 AST 58 H (5-40) units/L CK-MB (CK-2) 2.3 (0.0-4.0) ng/mL Lipids 02/28/21 Range/Units 19:04 Triglycerides 179 H (2-149) mg/dL Cholesterol 132 (50-199) mg/dL HDL Cholesterol 32 L (40-59) mg/dL Cholesterol/HDL Ratio 4.12 % CBC 03/01/21 Range/Units 08:29 WBC 11.9 H (4.5-11.0) K/mm3 RBC 3.56 L (3.65-5.03) M/mm3 Hgb 11.4 L (11.8-15.2) gm/dl Hct 34.6 L (35.5-45.6) % Plt Count 163 (140-440) K/mm3 Comprehensive Metabolic Panel 03/01/21 Range/Units 08:29 Sodium 146 H D (137-145) mmol/L Potassium 3.0 L D (3.6-5.0) mmol/L Chloride 105.7 (98-107) mmol/L Carbon Dioxide 24 (22-30) mmol/L BUN 42 H (9-20) mg/dL Creatinine 1.6 H (0.8-1.3) mg/dL Glucose 95 (75-100) mg/dL Calcium 8.4 (8.4-10.2) mg/dL AST 58 H (5-40) units/L ALT 74 H (7-56) units/L Alkaline Phosphatase 174 H (35-129) units/L Total Protein 5.0 L D (6.3-8.2) g/dL Albumin 2.9 L (3.9-5) g/dL - Imaging and Cardiology Echo: report reviewed Cardiac cath: report reviewed EKG interpretations - Telemetry EKG Rhythm: Sinus Rhythm - EKG Sinus rhythms and dysrhythmias: sinus tachycardia Assessment and Plan Acute respiratory failure with hypoxia * Intubated and sedated, management per [employer] worker Acute on chronic HFrEF in setting of severe nonischemic dilated cardiomyopathy * [facility] 11/2020 shows normal coronary arteries * Echocardiogram reviewed (11/21/2020): LVEF is 20 to 25%. LV is moderately dilated. Mild LVH. Severe global hypokinesis of LV. Right ventricle is moderately dilated and mildly hypokinetic. LA is moderately dilated. RA is m ildly dilated. Bioprosthetic aortic valve is present. Mild MR. Moderate TR. RVSP is 43 mmHg, mild pulmonary hypertension. * GDMT. No ACEI/ARB in setting of LILIBETH. Bioprosthetic aortic valve * Aspirin 81 mg daily recommended NSTEMI suspect type II in setting of LILIBETH * Continue to trend CE's. In setting of normal coronary arteries as confirmed in [facility] performed on November 2020 Heparin gtt is not recommended. DVT prophylaxis * Heparin SQ We will follow This patient was seen in conjunction with Dr Lopez who agrees with assessment plan of care - Patient Problems (1) Acute respiratory failure with hypoxia Current Visit: Yes Status: Acute Plan to address problem: (2) Acute on chronic HFrEF (heart failure with reduced ejection fraction) Current Visit: No Status: Acute Plan to address problem: (3) COPD (chronic obstructive pulmonary disease) Current Visit: Yes Status: Chronic Qualifiers: Emphysema type: unspecified Plan to address problem: (4) Hypertension Current Visit: Yes Status: Chronic Qualifiers: Hypertension type: primary hypertension Qualified Code(s): I10 - Essential (primary) hypertension Plan to address problem: (5) Elevated troponin Current Visit: Yes Status: Acute Plan to address problem: (6) LILIBETH (acute kidney injury) Current Visit: Yes Status: Acute Plan to address problem: (7) DVT prophylaxis Current Visit: Yes Status: Acute Plan to address problem:
[2021-03-01] MEDS: AZITHROMYCIN/NS 500 MG/250 ML 500 MG/250 ML BAG IV SCH ×3 (17:17→17:31)
[2021-03-01 18:38] LABS: Creatine Kinase MB 2.3 ng/mL (0.0-4.0)
[2021-03-01] MEDS: ARFORMOTEROL 15 MCG/2 ML NEBU IH SCH (20:06)
[2021-03-01] MEDS: BUDESONIDE 0.5 MG/2 ML NEBU IH SCH (20:06)
[2021-03-01 22:04] LABS: Creatine Kinase MB 2.2 ng/mL (0.0-4.0)
--- NOTE | 2021-03-02 01:43 | Consultation ---
DATE OF CONSULTATION: 03/01/2021 PULMONARY CRITICAL CARE CONSULT NOTE CONSULTING PHYSICIAN: Dr. Barrett. REASON FOR CONSULTATION: Acute hypoxemic respiratory failure, on mechanical ventilatory support. CHIEF COMPLAINT AND HISTORY OF PRESENT ILLNESS: The patient is a now 40-year-old male with past medical history as far as I can tell, significant for a diagnosis of CHF and coronary artery disease, came into the Emergency Room, brought in by EMS from home with a complaint of a 2-3 day history of increasing shortness of breath and increasing lower extremity edema. As mentioned, he does have a history of CHF and coronary artery disease, heart catheterization in November of this year was negative. He is also a former smoker, but also history of alcohol abuse. He was hypoxemic in the Emergency Room in significant respiratory extremis. He was requiring high amounts of oxygenation, complained of significant orthopnea. Denied any contact with any person with known COVID-19 infection. He did decompensate in the Emergency Room and ultimately was intubated. We are asked to assist with management. When I stopped by to see him, he was resting in bed on a Versed drip at 2 mg per hour. He was not following my commands or responding. I do not have any history of vomiting or overt aspiration. He is known as a tobacco abuser. This really is as much of the history of presentation as I have. PAST MEDICAL HISTORY: Hypertension, congestive heart failure, coronary artery disease, COPD, history of tobacco abuse, history of alcohol abuse. PAST SURGICAL HISTORY: He has had a hernia repair in the past. MEDICATIONS: He was on at the time I stopped by to see him, according to the medication administration record included the following: Tylenol 650 mg p.o. q. 4 hours p.r.n. mild pain or fever, DuoNeb nebulizer treatments scheduled q.i.d., aspirin 81 mg p.o. daily, Lipitor 40 mg p.o. at bedtime, azithromycin 500 mg IV daily, Coreg 25 mg p.o. q. 12 hours, Rocephin 2 grams IV daily, Pepcid 20 mg IV b.i.d., Versed drip was going at 2 mg per hour, Lasix 40 mg IV b.i.d., heparin 5000 units subQ q. 12 hours, Dilaudid 0.5 mg IV q. 3 hours p.r.n. severe pain, Zestril 10 mg p.o. daily, morphine sulfate 2 mg IV q. 4 hours p.r.n. moderate pain, Zofran 4 mg IV q. 8 hours p.r.n. nausea and vomiting, Solu-Medrol 125 mg IV q. 8 hours I believe, Aldactone 25 mg p.o. daily, Diovan 160 mg p.o. daily. ALLERGIES: No known drug allergies. DIET: Obese gentleman, acute weight loss or gain history is unknown. FAMILY AND SOCIAL HISTORY: Lives in the community. Again, has a history of alcohol and tobacco. IV drug use or abuse history is unknown. FAMILY HISTORY: Otherwise unknown and unobtainable. REVIEW OF SYSTEMS: Unobtainable secondary to patient's medical and mental condition. Since he has been here, no gross hematochezia or melena, no gross hematuria, no hematemesis, no hemoptysis/no bloody endotracheal tube secretions, no witnessed seizures. Review of systems otherwise unobtainable or as in the body of the history above. PHYSICAL EXAMINATION: VITAL SIGNS: At presentation over here revealed vital signs shows that he was afebrile at presentation, first temperature I see was low grade temperature actually 99.1 degrees Fahrenheit. He had a pulse of 132, respiratory rate of 39, blood pressure 151/112, O2 sats were 88%. Inspired oxygen concentration at that time was not recorded. When I stopped by to see him, his O2 sats were 98% that was on the mechanical ventilator assist control, tidal volume is about 450, rate of 24, PEEP of 10 and 40% FiO2. GENERAL: He is a middle-aged obese male. Normocephalic, atraumatic on the mechanical ventilator without significant patient-ventilator dyssynchrony. HEAD, EYES, EARS, NOSE AND THROAT: Anicteric, no conjunctival erythema. Oropharynx was moist. Endotracheal tube was taped at the lips around 24 cm. No gross jugular venous distention, no thyromegaly. He does have a large neck circumference. Grossly, there were no palpable lymph nodes in the supraclavicular or submandibular lymph node chains. LUNGS: Auscultation of both lung scruggs revealed bilateral rales, diminished bibasilar air entry and dullness to percussion. No wheezing, right greater than left. HEART: Sounds 1 and 2 are heard at the time of my evaluation, regular rate and rhythm without overt rubs or murmurs. ABDOMEN: Soft, full, protuberant. Bowel sounds are positive, nontender, no palpable hepatosplenomegaly. EXTREMITIES: Without overt digital clubbing or cyanosis. He has 2+ bipedal pitting edema. Pedal pulses are 2+ bilaterally. NEUROLOGIC: Pupils were equal, round, sluggishly reactive to light, about 3 mm. Extraocular muscle movements could not be assessed. He was sedated and not following commands. He did have some withdrawal movements to his extremities to noxious stimuli. SKIN: Normal turgor in the areas examined without overt cellulitis or rash. Please see the wound care nurses' notes and registered nurse's notes for full description of his skin. PSYCHIATRIC: Mood and affect could not be addressed. He was sedated. LABORATORY DATA: From my review are as follows: Admission white cell count 14,000, hemoglobin 13.3, hematocrit 40.3, platelet count of 193. No band neutrophils on the manual differential. INR was 1.24. At presentation, ABG showed a pH of 7.27, pCO2 of 48, pO2 of 89 on 100%. This morning on the above-mentioned ventilator settings, pH was 7.43, pCO2 was 35, pO2 was 148 that was on 70% FiO2. Serum sodium at presentation was 135, potassium 4.0, chloride 99, bicarbonate 20, BUN 38, creatinine was 1.5, glucose is 196, AST 49, ALT 60. Troponin was up at 0.103, it is up to 0.149. LDL cholesterol was 59. Urinalysis was negative for nitrites and leukocyte esterase and really unremarkable. Two sets of blood cultures are no growth to date. Chest x-ray was done at presentation. I have reviewed the chest x-ray, it shows diffuse bilateral infiltrates, more pronounced on the right then the left lower lobe regions. There is gross cardiomegaly, likely bilateral pleural effusions. Most recent chest x-ray from this morning shows even more dense infiltrates, particularly on the right side. No gross pneumothorax, no gross bony fractures. Echocardiogram has been done, result is pending. ASSESSMENT: 1. Acute hypoxemic respiratory failure, on mechanical ventilatory support. 2. Bilateral pulmonary infiltrates pneumonia/____ pulmonary edema. 3. Acute congestive heart failure exacerbation. 4. Uncontrolled hypertension. 5. Chronic obstructive pulmonary disease. 6. Non-ST elevation myocardial infarction. 7. Acute kidney injury. 8. Mild metabolic acidosis at presentation. 9. Elevated serum transaminases. 10. Obesity. 11. History of gastroesophageal reflux disease. 12. History of arthritis. 13. oropharyngeal dysphagia. PLAN: We will keep him on full mechanical ventilatory support in the short time. Ventilator-associated pneumonia bundle has been introduced. We will keep him on community-acquired pneumonia therapy empirically. We will also continue diuresis for the CHF and likely pulmonary edema. I will get bilateral chest ultrasound to evaluate for pleural effusions plus or minus a CT scan down the road. I will quickly taper him off systemic steroids. I do not think COPD is a major player here. We will change him to oral prednisone and taper off over the next couple of days. I am going to get him off the Versed drip, especially with his renal failure and put him on a fentanyl drip. I will also schedule Brovana and Pulmicort for the baseline COPD diagnosis and change the DuoNeb treatments to albuterol p.r.n. We will put him on a sliding scale insulin. Enteral nutrition will be the feeding modality of choice. Potassium will be given to replace his current potassium level of 3.0 with him on diuretics. I will make it 40 mg p.o. q. 4 hours x2 doses and reevaluate in the morning. He is appropriately on GI prophylaxis as well as DVT prophylaxis. Acute coronary syndrome workup is ongoing per Cardiology. I will defer to them in particular decisions with regarding anticoagulation. Chronic disease medications will be reintroduced by the attending physician. Flu and pneumonia vaccination will be addressed per protocol. Thank you very much for the consult. We will follow along and make further recommendations as picture progresses/becomes clearer. He is critically ill on life-sustaining interventions including mechanical ventilatory support at very high risk of from cardiopulmonary system decompensation. At this time, I spent about 35-40 minutes of critical care time without overlap and excluding any procedural time that may be necessary. TID: [id number] RECEIPT: [id number] YONI/CARLIE/ALBARO
--- NOTE | 2021-03-02 05:13 | XRay Report ---
XR chest 1V ap INDICATION / CLINICAL INFORMATION: follow up respiratory failure. COMPARISON: Radiograph from yesterday. FINDINGS: SUPPORT DEVICES: Unchanged. HEART / MEDIASTINUM: Unchanged. LUNGS / PLEURA: Airspace disease is improving compared to prior examination. No pneumothorax. Suspect small effusions. ADDITIONAL FINDINGS: No significant additional findings. IMPRESSION: 1. Persistent but improving airspace disease. Signer Name: Gus Mcgee MD Signed: 03/02/2021 5:08 AM Workstation Name: [id number]
[2021-03-02] MEDS: FUROSEMIDE 40 MG/4 ML INJ IV SCH (05:59)
[2021-03-02] MEDS: fentaNYL DRIP Premix 2,000 MCG/100 ML BAG IV SCH (05:59)
[2021-03-02 06:52] LABS: Hematocrit 34.9 % (35.5-45.6); Hemoglobin 11.6 gm/dl (11.8-15.2); Mean Corpuscular HGB Conc 33 % (32-34); Mean Corpuscular Volume 98 fl (84-94); Platelet Count 163 K/mm3 (140-440); Red Blood Count 3.56 M/mm3 (3.65-5.03)
[2021-03-02 07:07] LABS: BUN/Creatinine Ratio 34; Blood Urea Nitrogen 44 mg/dL (9-20); Calcium 8.6 mg/dL (8.4-10.2); Hemolysis Index 6
[2021-03-02] MEDS: ARFORMOTEROL 15 MCG/2 ML NEBU IH SCH ×2 (08:21→20:18)
[2021-03-02] MEDS: BUDESONIDE 0.5 MG/2 ML NEBU IH SCH ×2 (08:21→20:18)
[2021-03-02] MEDS: carvediloL 25 MG TAB PO SCH ×2 (09:47→21:37)
[2021-03-02] MEDS: FAMOTIDINE 20 MG TAB PO SCH ×2 (09:47→21:37)
[2021-03-02] MEDS: LISINOPRIL 10 MG TAB PO SCH (09:47)
[2021-03-02] MEDS: POTASSIUM CHLORIDE 20 MEQ PACKET FEEDTUBE SCH ×2 (09:47→13:21)
[2021-03-02] MEDS: predniSONE 20 MG TAB PO SCH (09:48)
[2021-03-02] MEDS: HEPARIN 5,000 UNIT/1 ML VIAL SUB-Q SCH ×2 (09:48→21:38)
[2021-03-02] MEDS: SPIRONOLACTONE 25 MG TAB PO SCH (09:48)
[2021-03-02] MEDS: ASPIRIN 81 MG TAB CHEW PO SCH (09:48)
[2021-03-02] MEDS: cefTRIAXone/NS 2 GM/100 ML 2 GM/100 ML BAG IV SCH (09:49)
--- NOTE | 2021-03-02 11:20 | Progress Note ---
Assessment and Plan Acute hypoxemic respiratory failure Bilateral pulmonary infiltrates (pneumonia / pulmonary edema) Acute congestive heart failure exacerbation Uncontrolled hypertension Chronic obstructive pulmonary disease Non-ST elevation myocardial infarction Acute kidney injury Mild metabolic acidosis at presentation Elevated serum transaminases Obesity History of gastroesophageal reflux disease History of arthritis oropharyngeal dysphagia - will plan to extubate shortly - for now, continue care as below; - continue diuresis with BID lasix - replace potassium per protocol - continue Daily SAT and SBT assessment as tolerated - continue accuchecks with glycemic control per SSI (While critically ill target blood glucose of 140-180 mg/dL; avoid hypoglycemia) - sedation prn for target RASS 0 to -1 - continue to wean supplemental oxygen for target O2 sat's > 90% acutely - VAP bundle addressed - continue lung protective strategies - continue bronchodilators with pulmonary hygiene per RT - wean per pulmonary driven protocols otherwise - avoid nephrotoxins, renally dose all medications - continue to avoid benzodiazepine's, reduce the possibility of delirium - completed AB's per ID rec's - prn analgesia per CPOT score - Maintenance of sleep-wake cycle, avoid delirium - continue enteral nutritional support at goal rate as tolerated - G.I. & VTE prophylaxis - PT/OT/ROM exercises - continue mobility protocols for pressure ulcer prophylaxis - Monitor hemodynamics closely - continue other care per attending / other consultants - discharge planning ongoing concurrently COVID SPECIFIC INTERVENTIONS - Remdesivir as per ID/Pulmonary developed protocols - continue systemic steroids for severe COVID-19 infection empirically - follow repeat COVID tests results - zinc and vitamin C supplementation - Monitor inflammatory markers per facility protocol - ferritin, Ddimer, CRP - therapeutic anticoagulation per system Protocol based on d-dimer and clinical considerations - Continue contact and airborne isolation .... Re-evaluate in am & prn CONDITION: CRITICAL PROGNOSIS: GUARDED CODE STATUS: FULL CODE The high probability of a clinically significant, sudden or life-threatening deterioration of the [respiratory, cardiovascular, GI & neurologic] system(s) required my full and direct attention, intervention and personal management. The aggregate critical care time was [35] minutes without overlap. Time includes spent on; [x] Data Review and interpretation [x] Patient assessment and monitoring of vital signs [x] Documentation [x] Medication orders and management Subjective Date of service: 03/02/21 Principal diagnosis: Ac hypoxemic resp failure; PNA; Pulm edema; AE-CHF; NSTEMI; HTN; LILIBETH Interval history: Patient is seen today for: Acute hypoxemic respiratory failure; pneumonia; acute pulmonary edema; Acute CHF; NSTEMI; HTN; LILIBETH; Obesity Seen and examined at bedside; 24hour events reviewed; nursing and respiratory care staff consulted; no adverse overnight events reported to me; resting peacefully in bed; on SBT and tolerated very well; ABG is acceptable on PSV 10/; denies chest pain; No N/V/F/C; of sedation Objective Vital Signs - 12hr 03/01/21 03/02/21 03/02/21 23:44 00:14 02:51 Temperature 98.0 F Pulse Rate 63 Pulse Rate [ Anterior Bilateral Throughout] Pulse Rate [ 63 From Monitor] Respiratory 26 H Rate Respiratory Rate [Anterior Bilateral Throughout] Blood Pressure 129/98 O2 Sat by Pulse 100 100 Oximetry 03/02/21 03/02/21 03/02/21 04:00 04:41 06:00 Temperature 98.7 F Pulse Rate 63 60 Pulse Rate [ Anterior Bilateral Throughout] Pulse Rate [ 63 From Monitor] Respiratory 26 H Rate Respiratory Rate [Anterior Bilateral Throughout] Blood Pressure 130/96 O2 Sat by Pulse 100 100 Oximetry 03/02/21 03/02/21 03/02/21 07:53 08:00 08:34 Temperature Pulse Rate 60 70 Pulse Rate [ 85 Anterior Bilateral Throughout] Pulse Rate [ From Monitor] Respiratory 26 H Rate Respiratory 15 Rate [Anterior Bilateral Throughout] Blood Pressure 130/96 O2 Sat by Pulse 100 Oximetry Constitutional: no acute distress Eyes: non-icteric ENT: oropharynx moist Neck: supple, no lymphadenopathy, no JVD Effort: normal Ascultation: Bilateral: diminished breath sounds, rhonchi (scant) Percussion: Bilateral: not dull Cardiovascular: regular rate and rhythm, other Gastrointestinal: normoactive bowel sounds, soft, non-tender, non-distended (protuberant) Integumentary: normal Extremities: no cyanosis, no edema, pulses normal, no ischemia or petechiae Neurologic: non-focal exam, pupils equal and round, CN II-XII normal, motor str ength normal and Psychiatric: mood appropriate, affect normal CBC and BMP: 03/02/21 06:30 03/02/21 06:30 ABG, PT/INR, D-dimer: ABG ABG pH 7.419 (7.320-7.450) 03/02/21 09:03 POC ABG pCO2 41.6 mmHg (32.0-48.0) 03/02/21 09:03 POC ABG pO2 129.6 mmHg (83-108) H 03/02/21 09:03 POC ABG HCO3 26.3 03/02/21 09:03 ABG O2 Saturation 98.5 (0-100) 03/02/21 09:03 PT/INR, D-dimer PT 16.1 Sec. (12.2-14.9) H 02/28/21 14:00 INR 1.24 (0.87-1.13) H 02/28/21 14:00 Abnormal lab findings: Abnormal Labs 02/28/21 02/28/21 02/28/21 14:00 14:00 14:00 WBC 14.0 H RBC Hgb Hct MCV 98 H MCH RDW 18.0 H Seg Neuts % (Manual) 97.0 H Lymphocytes % (Manual) 2.0 L Seg Neutrophils # Man 13.6 H Lymphocytes # (Manual) 0.3 L PT 16.1 H INR 1.24 H ABG pH POC ABG pO2 ABG Hemoglobin ABG Oxyhemoglobin ABG Sodium ABG Potassium ABG Chloride ABG Glucose Carboxyhemoglobin Sodium 135 L Potassium Chloride Carbon Dioxide 20 L BUN 38 H Creatinine 1.5 H Glucose 196 H Hemoglobin A1c Magnesium AST 49 H ALT 60 H Alkaline Phosphatase 218 H Total Creatine Kinase CK-MB (CK-2) Rel Index Troponin T 0.103 H* NT-Pro-B Natriuret Pep Total Protein Albumin 3.0 L Triglycerides HDL Cholesterol Arterial Blood Glucose Arterial Blood Ionized Calcium 02/28/21 02/28/21 02/28/21 14:00 16:07 19:04 WBC RBC Hgb Hct MCV MCH RDW Seg Neuts % (Manual) Lymphocytes % (Manual) Seg Neutrophils # Man Lymphocytes # (Manual) PT INR ABG pH 7.265 L POC ABG pO2 ABG Hemoglobin ABG Oxyhemoglobin 93.4 L ABG Sodium 134.9 L ABG Potassium ABG Chloride ABG Glucose 192 H Carboxyhemoglobin Sodium Potassium Chloride Carbon Dioxide BUN Creatinine Glucose Hemoglobin A1c Magnesium AST ALT Alkaline Phosphatase Total Creatine Kinase CK-MB (CK-2) Rel Index Troponin T 0.149 H* D NT-Pro-B Natriuret Pep > 05650 H Total Protein Albumin Triglycerides 179 H HDL Cholesterol 32 L Arterial Blood Glucose 192 H Arterial Blood Ionized Calcium 4.4 L 03/01/21 03/01/21 03/01/21 03:23 08:29 08:29 WBC 11.9 H RBC 3.56 L Hgb 11.4 L Hct 34.6 L MCV 97 H MCH RDW 18.1 H Seg Neuts % (Manual) 97.0 H Lymphocytes % (Manual) Seg Neutrophils # Man 11.5 H Lymphocytes # (Manual) 0.0 L PT INR ABG pH POC ABG pO2 147.5 H ABG Hemoglobin ABG Oxyhemoglobin 98.7 H ABG Sodium ABG Potassium 2.9 L ABG Chloride 108.0 H ABG Glucose 108 H Carboxyhemoglobin 0 L Sodium 146 H D Potassium 3.0 L D Chloride Carbon Dioxide BUN 42 H Creatinine 1.6 H Glucose Hemoglobin A1c Magnesium AST 58 H ALT 74 H Alkaline Phosphatase 174 H Total Creatine Kinase CK-MB (CK-2) Rel Index Troponin T NT-Pro-B Natriuret Pep Total Protein 5.0 L D Albumin 2.9 L Triglycerides HDL Cholesterol Arterial Blood Glucose 108 H Arterial Blood Ionized Calcium 4.5 L 03/01/21 03/01/21 03/01/21 08:29 08:29 17:58 WBC RBC Hgb Hct MCV MCH RDW Seg Neuts % (Manual) Lymphocytes % (Manual) Seg Neutrophils # Man Lymphocytes # (Manual) PT INR ABG pH POC ABG pO2 ABG Hemoglobin ABG Oxyhemoglobin ABG Sodium ABG Potassium ABG Chloride ABG Glucose Carboxyhemoglobin Sodium Potassium Chloride Carbon Dioxide BUN Creatinine Glucose Hemoglobin A1c 6.4 H Magnesium AST ALT Alkaline Phosphatase Total Creatine Kinase 43 L 37 L CK-MB (CK-2) Rel Index 5.3 H 6.2 H Troponin T NT-Pro-B Natriuret Pep Total Protein Albumin Triglycerides HDL Cholesterol Arterial Blood Glucose Arterial Blood Ionized Calcium 03/01/21 03/02/21 03/02/21 21:13 04:37 06:30 WBC 11.1 H RBC 3.56 L Hgb 11.6 L Hct 34.9 L MCV 98 H MCH 33 H RDW 18.0 H Seg Neuts % (Manual) Lymphocytes % (Manual) Seg Neutrophils # Man Lymphocytes # (Manual) PT INR ABG pH 7.454 H POC ABG pO2 146.4 H ABG Hemoglobin 11.8 L ABG Oxyhemoglobin 98.2 H ABG Sodium ABG Potassium 3.2 L ABG Chloride 113.0 H ABG Glucose 97 H Carboxyhemoglobin 0.3 L Sodium Potassium Chloride Carbon Dioxide BUN Creatinine Glucose Hemoglobin A1c Magnesium AST ALT Alkaline Phosphatase Total Creatine Kinase 33 L CK-MB (CK-2) Rel Index 6.6 H Troponin T NT-Pro-B Natriuret Pep Total Protein Albumin Triglycerides HDL Cholesterol Arterial Blood Glucose 97 H Arterial Blood Ionized Calcium 4.5 L 03/02/21 03/02/21 06:30 09:03 WBC RBC Hgb Hct MCV MCH RDW Seg Neuts % (Manual) Lymphocytes % (Manual) Seg Neutrophils # Man Lymphocytes # (Manual) PT INR ABG pH POC ABG pO2 129.6 H ABG Hemoglobin ABG Oxyhemoglobin 98.2 H ABG Sodium ABG Potassium 3.2 L ABG Chloride 112.0 H ABG Glucose 101 H Carboxyhemoglobin 0 L Sodium 148 H Potassium 3.1 L Chloride 110.0 H Carbon Dioxide BUN 44 H Creatinine Glucose Hemoglobin A1c Magnesium 2.60 H AST ALT Alkaline Phosphatase Total Creatine Kinase CK-MB (CK-2) Rel Index Troponin T 0.057 H D NT-Pro-B Natriuret Pep Total Protein Albumin Triglycerides HDL Cholesterol Arterial Blood Glucose 101 H Arterial Blood Ionized Calcium 4.5 L Chest x-ray: image reviewed (improving but persistent R>L pulmonary infiltrates) Allied health notes reviewed: nursing
--- NOTE | 2021-03-02 12:04 | Progress Note ---
Assessment and Plan Acute respiratory failure with hypoxia * Intubated and awake, management per accountant auditor Acute on chronic HFrEF in setting of severe nonischemic dilated cardiomyopathy * [facility] 11/2020 shows normal coronary arteries * Echocardiogram reviewed (11/21/2020): LVEF is 20 to 25%. LV is moderately dilated. Mild LVH. Severe global hypokinesis of LV. Right ventricle is moderately dilated and mildly hypokinetic. LA is moderately dilated. RA is mildly dilated. Bioprosthetic aortic valve is present. Mild MR. Moderate TR. RVSP is 43 mmHg, mild pulmonary hypertension. * GDMT. No ACEI/ARB in setting of LILIBETH. * Optimize volume control: Discontinue Lasix and initiate Bumex 1 mg IV twice daily. Patient has history of inadequate diuresis on Lasix and is on p.o. Bumex home regimen. Patient still 2-3+ bilateral lower extremity edema. -3 L over the last 3 days. * Replete potassium: 40 M EQ IV drip ordered with K-Dur 20 M EQ supplement orally. * Patient has previously been considered for LifeVest placement. But patient ultimately refused placement. Patient has significant history of medical noncompliance and abandonment of care AGAINST MEDICAL ADVICE. Bioprosthetic aortic valve * Aspirin 81 mg daily recommended NSTEMI suspect type II in setting of LILIBETH * Troponin is elevated, subacute and nonspecific, trending downwards. Continue to trend CE's. In setting of normal coronary arteries as confirmed in [facility] performed on November 2020. Heparin gtt is not recommended. DVT prophylaxis * Heparin SQ We will continue diuresis. Closely monitor potassium. We will follow This patient was seen in conjunction with Dr Lopez who agrees with assessment plan of care - Patient Problems (1) Acute respiratory failure with hypoxia Current Visit: Yes Status: Acute Plan to address problem: (2) Acute on chronic HFrEF (heart failure with reduced ejection fraction) Current Visit: No Status: Acute Plan to address problem: (3) COPD (chronic obstructive pulmonary disease) Current Visit: Yes Status: Chronic Qualifiers: Emphysema type: unspecified Plan to address problem: (4) Hypertension Current Visit: Yes Status: Chronic Qualifiers: Hypertension type: primary hypertension Qualified Code(s): I10 - Essential (primary) hypertension Plan to address problem: (5) Elevated troponin Current Visit: Yes Status: Acute Plan to address problem: (6) LILIBETH (acute kidney injury) Current Visit: Yes Status: Acute Plan to address problem: (7) DVT prophylaxis Current Visit: Yes Status: Acute Plan to address problem: Subjective Date of service: 03/02/21 Principal diagnosis: a/c HFrEF Interval history: Patient resting comfortably in bed. Patient is awake and intubated. Weaning ventilation support per pulmonary Telemetry reviewed: Sinus rhythm 76. Episode of 4 beat V. tach noted overnight Objective Last Vital Signs Temp 98.7 F 03/02/21 06:00 Pulse 85 03/02/21 08:34 Resp 15 03/02/21 08:34 BP 130/96 03/02/21 07:53 Pulse Ox 100 03/02/21 07:53 - Physical Examination General: No Apparent Distress HEENT: Positive: Normocephaly, Mucus Membranes Moist Neck: Positive: neck supple, trachea midline Cardiac: Positive: Reg Rate and Rhythm, S1/S2 Lungs: Positive: Ventilated Respirations Neuro: Positive: Grossly Intact Abdomen: Positive: Distended Skin: Negative: Rash, Wound Musculoskeletal: No Pain Extremities: Present: upper extr. pulses, lower extr. pulses, +3 Edema - Labs and Meds Cardiac Enzymes 03/01/21 03/01/21 Range/Units 17:58 21:13 CK-MB (CK-2) 2.3 2.2 (0.0-4.0) ng/mL CBC 03/02/21 Range/Units 06:30 WBC 11.1 H (4.5-11.0) K/mm3 RBC 3.56 L (3.65-5.03) M/mm3 Hgb 11.6 L (11.8-15.2) gm/dl Hct 34.9 L (35.5-45.6) % Plt Count 163 (140-440) K/mm3 Comprehensive Metabolic Panel 03/02/21 Range/Units 06:30 Sodium 148 H (137-145) mmol/L Potassium 3.1 L (3.6-5.0) mmol/L Chloride 110.0 H (98-107) mmol/L Carbon Dioxide 27 (22-30) mmol/L BUN 44 H (9-20) mg/dL Creatinine 1.3 (0.8-1.3) mg/dL Glucose 94 (75-100) mg/dL Calcium 8.6 (8.4-10.2) mg/dL - Imaging and Cardiology Echo: report reviewed Cardiac cath: report reviewed - Telemetry EKG Rhythm: Sinus Rhythm - EKG Sinus rhythms and dysrhythmias: sinus tachycardia
[2021-03-02] MEDS ORDERED: POTASSIUM CHLORIDE 10 MEQ 10 MEQ/100 ML BAG IV SCH (13:00)
[2021-03-02] MEDS: AZITHROMYCIN/NS 500 MG/250 ML 500 MG/250 ML BAG IV SCH (13:23)
--- NOTE | 2021-03-02 15:01 | Ultrasound Report ---
ULTRASOUND CHEST HISTORY: Bilateral pleural effusions COMPARISON: [facility] chest 03/01/2021 TECHNIQUE: Transabdominal grayscale ultrasound FINDINGS: Targeted ultrasound was performed on both sides of the chest. No pleural fluid is demonstra patrick bilaterally. IMPRESSION: No pleural effusions identified. Signer Name: Alexander Merino Jr, MD Signed: 03/02/2021 2:56 PM Workstation Name: [id number]
--- NOTE | 2021-03-02 17:50 | Electrocardiograph Report ---
[facility] Test Date: 2021-02-28 Test Time: 16:04:24 Pat Name: MYRIAM MELARA Department: Room: A254 1 Gender: M Security Program Manager: TAN : 1980 Requested By: APOORVA COHEN Order Number: [id number] Reading MD: Fletcher Alcantar Measurements Intervals [place] Rate: 130 P: 10 MO: 144 QRS: 18 QRSD: 82 T: 104 QT: 307 QTc: 451 Interpretive Statements Sinus tachycardia Probable left atrial enlargement Probable left ventricular hypertrophy Nonspecific T abnormalities, lateral leads Compared to ECG 12/10/2020 07:35:49 Sinus rate has increased from 80-130 Electronically Signed On 03-02-2021 17:49:44 EDT by Fletcher Alcantar
[2021-03-02] MEDS: BUMETANIDE 1 MG/4 ML INJ IV SCH (18:52)
--- NOTE | 2021-03-02 19:20 | Progress Note ---
Assessment and Plan Critical care treatment The high probability OF a clinically significant sudden or life-threatening deterioration of the cardiorespiratory system and endocrine system required my full and direct attention, intervention and postoperative management. The aggregate critical care time was 40 minutes. The time is in addition to time spent performing reported procedures but includes the followin: Data review and interpretation 2: Patient assessment and monitoring of vital signs 3: Documentation 4:: Medication orders and management - Patient Problems (1) Acute respiratory failure with hypoxia Current Visit: Yes Status: Acute Plan to address problem: Patient sats were very low at the time of admission to the emergency room BiPAP did not improve Patient had to be intubated and patient is on vent management Florist Designer consult requested Patient could be extubated today After extubation patient comfortable and walking around the room Patient to be transferred to regular medical floor (2) Acute on chronic HFrEF (heart failure with reduced ejection fraction) Current Visit: No Status: Acute Plan to address problem: IV Lasix for now Daily intake and output Daily weights Echocardiogram for ejection fraction Cardiology consult appreciated LVEF 25 to 30% (3) COPD (chronic obstructive pulmonary disease) Current Visit: Yes Status: Chronic Qualifiers: Emphysema type: unspecified Plan to address problem: Continue duo nebs and steroids (4) Hypertension Current Visit: Yes Status: Chronic Qualifiers: Hypertension type: primary hypertension Qualified Code(s): I10 - Essential (primary) hypertension Plan to address problem: Continue antihypertensives and adjust medications (5) Elevated troponin Current Visit: Yes Status: Acute Plan to address problem: May be a troponin leak We will get a CK and CK-MBs (6) LILIBETH (acute kidney injury) Current Visit: Yes Status: Acute Plan to address problem: Secondary to vasomotor nephropathy No IV fluids at this time because of the severe CHF (7) DVT prophylaxis Current Visit: Yes Status: Acute Plan to address problem: Heparin and GI prophylaxis Subjective Date of service: 03/02/21 Principal diagnosis: Ac hypoxemic resp failure; PNA; Pulm edema; AE-CHF; NSTEMI; HTN; LILIBETH Interval history: This is a 40-year-old -[place] male presents to the emergency department via EMS from home with a complaint of a 2 to 3-day history of progressively worsening shortness of breath and associated lower extremity swelling. He has a history of CHF, COPD, hypertension, previous NSTEMI but normal coronaries as of a left heart catheterization in November of this year. He has a former smoker and has a previous history of alcohol abuse. Patient follows with Dr. Lopez at [facility] cardiology. EMS found the patient to be hypoxic in the low 80s and the patient was breathing very fast. He was placed on 4 L oxygen via n gary cannula, which was then increased to 6 L upon presentation here. The patient was found to have a low-grade fever, so along with his tachycardia, a code sepsis was initiated. Patient says that he has increased shortness of breath with exertion or with laying flat. He denies any chest pain, cough, nausea, vomiting, abdominal pain. No recent travel or sick contacts at home. No known exposure to anyone with COVID-19. 03/01/2021 Patient intubated Weaning in progress Echocardiogram shows ejection fraction of 25 to 30% 03/02/2021 Patient could be weaned off Patient extubated Comfortable on 2 L nasal cannula oxygen Patient to be transferred to medical floor with remote telemetry Objective - Constitutional Vitals: Vital Signs - 12hr 03/02/21 03/02/21 03/02/21 07:53 08:00 08:34 Pulse Rate 60 70 Pulse Rate [ 85 Anterior Bilateral Throughout] Pulse Rate [ From Monitor] Respiratory 26 H Rate Respiratory 15 Rate [Anterior Bilateral Throughout] Blood Pressure 130/96 O2 Sat by Pulse 100 Oximetry 03/02/21 03/02/21 03/02/21 10:00 12:00 14:00 Pulse Rate 100 H Pulse Rate [ Anterior Bilateral Throughout] Pulse Rate [ 63 63 From Monitor] Respiratory 26 H 26 H Rate Respiratory Rate [Anterior Bilateral Throughout] Blood Pressure O2 Sat by Pulse 100 100 Oximetry 03/02/21 03/02/21 16:00 18:00 Pulse Rate 90 Pulse Rate [ Anterior Bilateral Throughout] Pulse Rate [ 63 From Monitor] Respiratory 26 H Rate Respiratory Rate [Anterior Bilateral Throughout] Blood Pressure O2 Sat by Pulse 100 Oximetry General appearance: Present: no acute distress, well-nourished - EENT Eyes: PERRL, EOM intact ENT: hearing intact, clear oral mucosa Ears: bilateral: normal - Neck Neck: supple, normal ROM - Respiratory Respiratory effort: normal Respiratory: bilateral: CTA - Breasts Breasts: normal - Cardiovascular Heart rate: 78 Rhythm: regular Heart Sounds: Present: S1 & S2. Absent: gallop, rub Extremities: pulses intact, No edema, normal color, Full ROM - Gastrointestinal General gastrointestinal: Present: soft, non-tender, non-distended, normal bowel sounds - Genitourinary Male genitourinary: normal - Integumentary Integumentary: clear, warm, dry - Musculoskeletal Musculoskeletal: 1, strength equal bilaterally - Neurologic Neurologic: moves all extremities - Psychiatric Psychiatric: memory intact, appropriate mood/affect, intact judgment & insight - Labs CBC & Chem 7: 03/02/21 06:30 03/03/21 04:37 Labs: Abnormal lab results 03/01/21 03/02/21 03/02/21 Range/Units 21:13 04:37 06:30 WBC 11.1 H (4.5-11.0) K/mm3 RBC 3.56 L (3.65-5.03) M/mm3 Hgb 11.6 L (11.8-15.2) gm/dl Hct 34.9 L (35.5-45.6) % MCV 98 H (84-94) fl MCH 33 H (28-32) pg RDW 18.0 H (13.2-15.2) % ABG pH 7.454 H (7.320-7.450) POC ABG pO2 146.4 H (83-108) mmHg ABG Hemoglobin 11.8 L (12.0-17.5) ABG Oxyhemoglobin 98.2 H (94-98) ABG Potassium 3.2 L (3.40-4.50) mmol/L ABG Chloride 113.0 H (98-107) mmol/L ABG Glucose 97 H (65-95) mg/dL Carboxyhemoglobin 0.3 L (0.5-1.5) Sodium (137-145) mmol/L Potassium (3.6-5.0) mmol/L Chloride (98-107) mmol/L BUN (9-20) mg/dL Magnesium (1.7-2.3) mg/dL Total Creatine Kinase 33 L (55-170) units/L CK-MB (CK-2) Rel Index 6.6 H (0-4) Troponin T (0.00-0.029) ng/mL Arterial Blood Glucose 97 H (65-95) mg/dL Arterial Blood Ionized Calcium 4.5 L (4.6-5.3) mg/dL 03/02/21 03/02/21 Range/Units 06:30 09:03 WBC (4.5-11.0) K/mm3 RBC (3.65-5.03) M/mm3 Hgb (11.8-15.2) gm/dl Hct (35.5-45.6) % MCV (84-94) fl MCH (28-32) pg RDW (13.2-15.2) % ABG pH (7.320-7.450) POC ABG pO2 129.6 H (83-108) mmHg ABG Hemoglobin (12.0-17.5) ABG Oxyhemoglobin 98.2 H (94-98) ABG Potassium 3.2 L (3.40-4.50) mmol/L ABG Chloride 112.0 H (98-107) mmol/L ABG Glucose 101 H (65-95) mg/dL Carboxyhemoglobin 0 L (0.5-1.5) Sodium 148 H (137-145) mmol/L Potassium 3.1 L (3.6-5.0) mmol/L Chloride 110.0 H (98-107) mmol/L BUN 44 H (9-20) mg/dL Magnesium 2.60 H (1.7-2.3) mg/dL Total Creatine Kinase (55-170) units/L CK-MB (CK-2) Rel Index (0-4) Troponin T 0.057 H D (0.00-0.029) ng/mL Arterial Blood Glucose 101 H (65-95) mg/dL Arterial Blood Ionized Calcium 4.5 L (4.6-5.3) mg/dL HEART Score - HEART Score Troponin: Troponin T 0.057 ng/mL (0.00-0.029) H D 03/02/21 06:30
[2021-03-02] MEDS: MORPHINE 2 MG/1 ML INJ IV PRN (21:36)
[2021-03-03 06:46] LABS: BUN/Creatinine Ratio 40; Blood Urea Nitrogen 40 mg/dL (9-20); Calcium 8.3 mg/dL (8.4-10.2); Hemolysis Index 103
[2021-03-03] MEDS: BUMETANIDE 1 MG/4 ML INJ IV SCH ×2 (07:28→18:11)
--- NOTE | 2021-03-03 09:05 | Progress Note ---
Assessment and Plan Assessment and plan: This is a 40-year-old -Russian male presents to the emergency department via EMS from home with a complaint of a 2 to 3-day history of progressively worsening shortness of breath and associated lower extremity swelling. He has a history of CHF, COPD, hypertension, previous NSTEMI but normal coronaries as of a left heart catheterization in November of this year. He has a former smoker and has a previous history of alcohol abuse. Patient follows with Dr. Lopez at [facility] cardiology. EMS found the patient to be hypoxic in the low 80s and the patient was breathing very fast. He was placed on 4 L oxygen via nasal cannula, which was then increased to 6 L upon presentation here. The patient was found to have a low-grade fever, so along with his tachycardia, a code sepsis was initiated. Patient says that he has increased shortness of breath with exertion or with laying flat. He denies any chest pain, cough, nausea, vomiting, abdominal pain. No recent travel or sick contacts at home. No known exposure to anyone with COVID-19. 03/01/2021 Patient intubated Weaning in progress Echocardiogram shows ejection fraction of 25 to 30% 03/02/2021 Patient could be weaned off Patient extubated Comfortable on 2 L nasal cannula oxygen Patient to be transferred to medical floor with remote telemetry 03/03: Continue supportive care, Cardiology input noted. monitor and replace elect rolytes. (1) Acute respiratory failure with hypoxia Current Visit: Yes Status: Acute Plan to address problem: Patient sats were very low at the time of admission to the emergency room BiPAP did not improve Patient had to be intubated and patient is on vent management Identification And Records Commander consult requested Patient could be extubated today After extubation patient comfortable and walking around the room Patient to be transferred to regular medical floor (2) Acute on chronic HFrEF (heart failure with reduced ejection fraction) Current Visit: No Status: Acute Plan to address problem: IV Lasix for now Daily intake and output Daily weights Echocardiogram for ejection fraction Cardiology consult appreciated LVEF 25 to 30% (3) COPD (chronic obstructive pulmonary disease) Current Visit: Yes Status: Chronic Qualifiers: Emphysema type: unspecified Plan to address problem: Continue duo nebs and steroids (4) Hypertension Current Visit: Yes Status: Chronic Qualifiers: Hypertension type: primary hypertension Qualified Code(s): I10 - Essential (primary) hypertension Plan to address problem: Continue antihypertensives and adjust medications (5) Elevated troponin Current Visit: Yes Status: Acute Plan to address problem: May be a troponin leak We will get a CK and CK-MBs (6) LILIBETH (acute kidney injury)Secondary to vasomotor nephropathy Current Visit: Yes Status: Acute Plan to address problem: No IV fluids at this time because of the severe CHF (7) DVT prophylaxis Current Visit: Yes Status: Acute Plan to address problem: Heparin and GI prophylaxis Hospitalist Physical - Physical exam Narrative exam: General appearance: Present: no acute distress, well-nourished - EENT Eyes: PERRL, EOM intact ENT: hearing intact, clear oral mucosa Ears: bilateral: normal - Neck Neck: supple, normal ROM - Respiratory Respiratory effort: normal Respiratory: bilateral: CTA - Breasts Breasts: normal - Cardiovascular Heart rate: 78 Rhythm: regular Heart Sounds: Present: S1 & S2. Absent: gallop, rub Extremities: pulses intact, No edema, normal color, Full ROM - Gastrointestinal General gastrointestinal: Present: soft, non-tender, non-distended, normal bowel sounds - Genitourinary Male genitourinary: normal - Integumentary Integumentary: clear, warm, dry - Musculoskeletal Musculoskeletal: 1, strength equal bilaterally - Neurologic Neurologic: moves all extremities - Psychiatric Psychiatric: memory intact, appropriate mood/affect, intact judgment & insight - Constitutional Vitals: Temp Pulse Resp BP Pulse Ox 98.0 F 85 20 91/58 92 03/03/21 08:52 03/03/21 08:52 03/03/21 08:52 03/03/21 08:52 03/03/21 08:52 General appearance: Present: no acute distress, mild distress, well-nourished HEART Score - HEART Score Troponin: Troponin T 0.047 ng/mL (0.00-0.029) H 03/03/21 04:37 Results - Labs CBC & Chem 7: 03/02/21 06:30 03/03/21 04:37 Labs: Laboratory Last Values WBC 11.1 K/mm3 (4.5-11.0) H 03/02/21 06:30 RBC 3.56 M/mm3 (3.65-5.03) L 03/02/21 06:30 Hgb 11.6 gm/dl (11.8-15.2) L 03/02/21 06:30 Hct 34.9 % (35.5-45.6) L 03/02/21 06:30 MCV 98 fl (84-94) H 03/02/21 06:30 MCH 33 pg (28-32) H 03/02/21 06:30 MCHC 33 % (32-34) 03/02/21 06:30 RDW 18.0 % (13.2-15.2) H 03/02/21 06:30 Plt Count 163 K/mm3 (140-440) 03/02/21 06:30 Add Manual Diff Complete 03/01/21 08:29 Total Counted 100 03/01/21 08:29 Seg Neutrophils % [employer] [place] 03/01/21 08:29 Seg Neuts % (Manual) 97.0 % (40.0-70.0) H 03/01/21 08:29 Band Neutrophils % 3.0 % 03/01/21 08:29 Lymphocytes % (Manual) 2.0 % (13.4-35.0) L 02/28/21 14:00 Monocytes % (Manual) 1.0 % (0.0-7.3) 02/28/21 14:00 Nucleated RBC % Not Reportable 03/01/21 08:29 Seg Neutrophils # Man 11.5 K/mm3 (1.8-7.7) H 03/01/21 08:29 Band Neutrophils # 0.4 K/mm3 03/01/21 08:29 Lymphocytes # (Manual) 0.0 K/mm3 (1.2-5.4) L 03/01/21 08:29 Abs React Lymphs (Man) 0.0 K/mm3 03/01/21 08:29 Monocytes # (Manual) 0.0 K/mm3 (0.0-0.8) 03/01/21 08:29 Eosinophils # (Manual) 0.0 K/mm3 (0.0-0.4) 03/01/21 08:29 Basophils # (Manual) 0.0 K/mm3 (0.0-0.1) 03/01/21 08:29 Metamyelocytes # 0.0 K/mm3 03/01/21 08:29 Myelocytes # 0.0 K/mm3 03/01/21 08:29 Promyelocytes # 39.5 K/mm3 03/01/21 08:29 Blast Cells # 0.0 K/mm3 03/01/21 08:29 WBC Morphology Not Reportable 03/01/21 08:29 Hypersegmented Neuts Not Reportable 03/01/21 08:29 Hyposegmented Neuts Not Reportable 03/01/21 08:29 Hypogranular Neuts Not Reportable 03/01/21 08:29 Smudge Cells Not Reportable 03/01/21 08:29 Toxic Granulation 1+ 03/01/21 08:29 Toxic Vacuolation Few 03/01/21 08:29 Dohle Bodies Not Reportable 03/01/21 08:29 Pelger-Huet Anomaly Not Reportable 03/01/21 08:29 Nadya Rods Not Reportable 03/01/21 08:29 Platelet Estimate Cons 03/01/21 08:29 Clumped Platelets Not Reportable 03/01/21 08:29 Plt Clumps, EDTA Not Reportable 03/01/21 08:29 Large Platelets Few 03/01/21 08:29 Giant Platelets Not Reportable 03/01/21 08:29 Platelet Satelliting Not Reportable 03/01/21 08:29 Plt Morphology Comment Not Reportable 03/01/21 08:29 RBC Morphology Not Reportable 03/01/21 08:29 Dimorphic RBCs Not Reportable 03/01/21 08:29 Polychromasia Not Reportable 03/01/21 08:29 Hypochromasia Not Reportable 03/01/21 08:29 Poikilocytosis Not Reportable 03/01/21 08:29 Anisocytosis Not Reportable 03/01/21 08:29 Microcytosis Not Reportable 03/01/21 08:29 Macrocytosis Not Reportable 03/01/21 08:29 Spherocytes Not Reportable 03/01/21 08:29 Pappenheimer Bodies Not Reportable 03/01/21 08:29 Sickle Cells Not Reportable 03/01/21 08:29 Target Cells 1+ 03/01/21 08:29 Tear Drop Cells Not Reportable 03/01/21 08:29 Ovalocytes 1+ 03/01/21 08:29 Helmet Cells Not Reportable 03/01/21 08:29 Boyd-Sunnyside Bodies Not Reportable 03/01/21 08:29 [place] Rings Not Reportable 03/01/21 08:29 Yan Cells 1+ 03/01/21 08:29 Bite Cells Not Reportable 03/01/21 08:29 Crenated Cell Not Reportable 03/01/21 08:29 Elliptocytes Not Reportable 03/01/21 08:29 Acanthocytes (Spur) Not Reportable 03/01/21 08:29 Rouleaux Not Reportable 03/01/21 08:29 Hemoglobin C Crystals Not Reportable 03/01/21 08:29 Schistocytes Not Reportable 03/01/21 08:29 Malaria parasites Not Reportable 03/01/21 08:29 Louie Bodies Not Reportable 03/01/21 08:29 Hem Pathologist Commnt No 03/01/21 08:29 PT 16.1 Sec. (12.2-14.9) H 02/28/21 14:00 INR 1.24 (0.87-1.13) H 02/28/21 14:00 ABG pH 7.419 (7.320-7.450) 03/02/21 09:03 POC ABG pCO2 41.6 mmHg (32.0-48.0) 03/02/21 09:03 POC ABG pO2 129.6 mmHg (83-108) H 03/02/21 09:03 POC ABG HCO3 26.3 03/02/21 09:03 ABG O2 Saturation 98.5 (0-100) 03/02/21 09:03 POC ABG Base Excess 1.7 03/02/21 09:03 ABG Hemoglobin 12.1 (12.0-17.5) 03/02/21 09:03 ABG Oxyhemoglobin 98.2 (94-98) H 03/02/21 09:03 ABG Methemoglobin 0.3 (0.0-1.5) 03/02/21 09:03 ABG Sodium 144.1 mmol/L (136.0-145.0) 03/02/21 09:03 ABG Potassium 3.2 mmol/L (3.40-4.50) L 03/02/21 09:03 ABG Chloride 112.0 mmol/L (98-107) H 03/02/21 09:03 ABG Glucose 101 mg/dL (65-95) H 03/02/21 09:03 Carboxyhemoglobin 0 (0.5-1.5) L 03/02/21 09:03 FiO2 % 40.0 03/02/21 09:03 Sodium 143 mmol/L (137-145) 03/03/21 04:37 Potassium 4.1 mmol/L (3.6-5.0) 03/03/21 04:37 Chloride 105.3 mmol/L (98-107) 03/03/21 04:37 Carbon Dioxide 23 mmol/L (22-30) 03/03/21 04:37 Anion Gap 19 mmol/L 03/03/21 04:37 BUN 40 mg/dL (9-20) H 03/03/21 04:37 Creatinine 1.0 mg/dL (0.8-1.3) 03/03/21 04:37 Estimated GFR > 60 ml/min 03/03/21 04:37 BUN/Creatinine Ratio 40 % 03/03/21 04:37 Glucose 137 mg/dL (75-100) H 03/03/21 04:37 POC Glucose 168 mg/dL (70-105) H 03/03/21 06:02 Hemoglobin A1c 6.4 % (4-6) H 03/01/21 08:29 Lactic Acid 1.40 mmol/L (0.7-2.0) 02/28/21 16:07 Calcium 8.3 mg/dL (8.4-10.2) L 03/03/21 04:37 Magnesium 2.60 mg/dL (1.7-2.3) H 03/02/21 06:30 Total Bilirubin 0.70 mg/dL (0.1-1.2) 03/01/21 08:29 AST 58 units/L (5-40) H 03/01/21 08:29 ALT 74 units/L (7-56) H 03/01/21 08:29 Alkaline Phosphatase 174 units/L (35-129) H 03/01/21 08:29 Total Creatine Kinase 33 units/L (55-170) L 03/01/21 21:13 CK-MB (CK-2) 2.2 ng/mL (0.0-4.0) 03/01/21 21:13 CK-MB (CK-2) Rel Index 6.6 (0-4) H 03/01/21 21:13 Troponin T 0.047 ng/mL (0.00-0.029) H 03/03/21 04:37 NT-Pro-B Natriuret Pep > 80056 pg/mL (0-450) H 02/28/21 14:00 Total Protein 5.0 g/dL (6.3-8.2) L D 03/01/21 08:29 Albumin 2.9 g/dL (3.9-5) L 03/01/21 08:29 Albumin/Globulin Ratio 1.4 % 03/01/21 08:29 Triglycerides 179 mg/dL (2-149) H 02/28/21 19:04 Cholesterol 132 mg/dL (50-199) 02/28/21 19:04 LDL Cholesterol Direct 59 mg/dL (50-130) 02/28/21 19:04 HDL Cholesterol 32 mg/dL (40-59) L 02/28/21 19:04 Cholesterol/HDL Ratio 4.12 % 02/28/21 19:04 Arterial Blood Glucose 101 mg/dL (65-95) H 03/02/21 09:03 Arterial Blood Ionized Calcium 4.5 mg/dL (4.6-5.3) L 03/02/21 09:03 Urine Color Dara (Yellow) 02/28/21 17:59 Urine Turbidity Cloudy (Clear) 02/28/21 17:59 Urine pH 5.0 (5.0-7.0) 02/28/21 17:59 Ur Specific Claridge 1.017 (1.003-1.030) 02/28/21 17:59 Urine Protein >500 mg/dL (Negative) 02/28/21 17:59 Urine Glucose (UA) Neg mg/dL (Negative) 02/28/21 17:59 Urine Ketones Neg mg/dL (Negative) 02/28/21 17:59 Urine Blood Sm (Negative) 02/28/21 17:59 Urine Nitrite Neg (Negative) 02/28/21 17:59 Urine Bilirubin Neg (Negative) 02/28/21 17:59 Urine Urobilinogen < 2.0 mg/dL (<2.0) 02/28/21 17:59 Ur Leukocyte Esterase Neg (Negative) 02/28/21 17:59 Urine WBC (Auto) 6.0 /HPF (0.0-6.0) 02/28/21 17:59 Urine RBC (Auto) 5.0 /HPF (0.0-6.0) 02/28/21 17:59 U Epithel Cells (Auto) 2.0 /HPF (0-13.0) 02/28/21 17:59 Urine Bacteria (Auto) 1+ /HPF (Negative) 02/28/21 17:59 Urine Mucus Few /HPF 02/28/21 17:59 Urine Yeast (Budding) 2+ /HPF 02/28/21 17:59 Microbiology: Microbiology 02/28/21 14:00 Peripheral/Venous Blood Culture - Preliminary NO GROWTH AFTER 48 HOURS 02/28/21 14:00 Peripheral/Venous Blood Culture - Preliminary NO GROWTH AFTER 48 HOURS Hyatt/IV: Voiding Method Indwelling Catheter Active Medications - Current Medications Current Medications: Generic Name Dose Route Start Last Admin Trade Name Freq PRN Reason Stop Dose Admin Acetaminophen 650 mg 02/28/21 20:50 Acetaminophen 325 Mg Tab PO Q4H PRN Pain MILD(1-3)/Fever >100.5/YU Albuterol 2.5 mg 03/01/21 12:53 Albuterol 2.5 Mg/3 Ml Nebu IH Q4HRT PRN Shortness Of Breath Arformoterol Tartrate 15 mcg 03/01/21 20:00 03/02/21 20:18 Arformoterol 15 Mcg/2 Ml Nebu IH 15 mcg Q12HRT AMRITA Administration Aspirin 81 mg 03/01/21 10:00 03/02/21 09:48 Aspirin 81 Mg Tab Chew PO 81 mg QDAY AMRITA Administration Atorvastatin Calcium 40 mg 03/01/21 22:00 03/02/21 22:29 Atorvastatin 40 Mg Tab PO 40 mg QHS AMRITA Administration Budesonide 0.5 mg 03/01/21 20:00 03/02/21 20:18 Budesonide 0.5 Mg/2 Ml Nebu IH 0.5 mg Q12HRT AMRITA Administration Bumetanide 1 mg 03/02/21 18:00 03/03/21 07:28 Bumetanide 1 Mg/4 Ml Inj IV 1 mg BID@0600,1800 AMRITA Administration Carvedilol 25 mg 02/28/21 22:00 03/02/21 21:37 Carvedilol 25 Mg Tab PO 25 mg Q12HR AMRITA Administration Famotidine 20 mg 03/02/21 10:00 03/02/21 21:37 Famotidine 20 Mg Tab PO 20 mg BID AMRITA Administration Heparin Sodium (Porcine) 5,000 unit 02/28/21 22:00 03/02/21 21:38 Heparin 5,000 Unit/1 Ml Vial SUB-Q 5,000 unit Q12HR AMRITA Administration Hydromorphone HCl 0.5 mg 02/28/21 20:50 Hydromorphone 1 Mg/1 Ml Inj IV Q3H PRN Pain , Severe (7-10) Hydrophilic Ointment 1 applic 02/28/21 16:05 Lip Therapy Vaseline TP Q2HR PRN Dry Lips Ceftriaxone Sodium 2 gm in 100 mls @ 200 mls/hr 03/01/21 10:00 03/02/21 09:49 Rocephin/Ns 2 Gm/100 Ml IV 03/05/21 10:29 200 mls/hr Q24H AMRITA Administration Protocol Lisinopril 10 mg 02/28/21 21:00 03/02/21 09:47 Lisinopril 10 Mg Tab PO 10 mg QDAY AMRITA Administration Metoclopramide HCl 10 mg 02/28/21 20:50 Metoclopramide 10 Mg/2 Ml Inj IV Q6H PRN Nausea And Vomiting Morphine Sulfate 2 mg 02/28/21 20:50 03/02/21 21:36 Morphine 2 Mg/1 Ml Inj IV 2 mg Q4H PRN Administration Pain, Moderate (4-6) Multi-Ingred Cream/Lotion/Oil/Oint 1 applic 02/28/21 16:05 Mineral Oil/Petrolatum, White Ophth Oint 3.5 Gm OU Q4HR PRN Dry Eye(s) Ondansetron HCl 4 mg 02/28/21 20:50 Ondansetron 4 Mg/2 Ml Inj IV Q8H PRN Nausea And Vomiting Potassium Chloride 20 meq 03/03/21 10:00 Potassium Chloride Er 20 Meq Tab PO QDAY AMRITA Prednisone 20 mg 03/02/21 10:00 03/02/21 09:48 Prednisone 20 Mg Tab PO 03/04/21 10:01 20 mg QDAY AMRITA Administration Sodium Chloride 10 ml 02/28/21 22:00 03/03/21 07:28 Sodium Chloride 0.9% 10 Ml Flush Syringe IV 10 ml BID AMRITA Administration Sodium Chloride 10 ml 02/28/21 20:50 Sodium Chloride 0.9% 10 Ml Flush Syringe IV PRN PRN LINE FLUSH Spironolactone 25 mg 03/01/21 10:00 03/02/21 09:48 Spironolactone 25 Mg Tab PO 25 mg QDAY AMRITA Administration Nutrition/Malnutrition Assess - Dietary Evaluation Nutrition/Malnutrition Findings: Nutrition Notes Start: 03/01/21 13:28 Freq: Status: Active Protocol: Document 03/01/21 13:28 CW (Rec: 03/01/21 13:40 CW [id number]) Nutrition Notes Need for Assessment generated from: MD Order Initial or Follow up Assessment Current Diagnosis Acute Kidney Injury,COPD, Hypertension,Heart Failure, Respiratory Failure Current Diet No current diet order Labs/Tests Na 146 K 3.0 BUN 42 Cr 1.6 HGBa1C 6.4 Pertinent Medications Aldactone Lasix Solumedrol Kdur Height 5 ft 10 in Weight 103.7 kg Nancy Body Weight (kg) 75.45 BMI 32.8 Weight change and time frame 6.9% weight gain x 3 months likely r/t fluid (94.2 on 09/2020) Weight Status Obese Subjective/Other Information MD consult for evaluate nutritonal intake. Pt currently on mechanical vent MD Holloway on floor at time of visit and verbalized likely need to initiate TF feeding. D/Y low serum K and usage of k sparing rx, will not start pt on Nepro at this time. Will monitor for need to change to Nepro. Recommend Vital AF at 65 ml/hr Burn Absent Trauma Absent Difficulty In Swallowing Current % PO Negligible Minimum of two criteria No physical signs of malnutrition #1 Nutrition Diagnosis Inadequate oral intake Etiology mechanical ventilation As Evidenced by Signs and Symptoms Pt unable to consume via PO at this time Is patient on ventilator? Yes Is Patient Ambulatory and/or Out of Bed No REE-([facility]-confined to bed) 2334.684 Kcal/Kg value to use for calculation 18 Approximate Energy Requirements Using 1867 kcal/Kg Calculation Used for Recommendations Kcal/kg Additional Notes protein needs: 151g (>2g/kgIBW ) fluid needs: 1500 - 1900 ml or per MD Nutrition Intervention Change Diet Order: Initiate TF when medically feasible Nutrition Support: Vital AF at 65 ml/hr with a free water flush of 100 ml q4h Kcal 1,872 Protein (gm) 117 Fluid (mL) 1,265 Goal #1 Initiate TF regimen Goal #2 Meet at least 75% of kcal and protein needs via TF Anticipated Discharge Needs: unable to determine at this time Follow-Up By: 03/03/21 Additional Comments F/U for TF consult, vent status, renal related labs
[2021-03-03] MEDS: predniSONE 20 MG TAB PO SCH (09:40)
[2021-03-03] MEDS: FAMOTIDINE 20 MG TAB PO SCH ×2 (09:40→21:32)
[2021-03-03] MEDS: ASPIRIN 81 MG TAB CHEW PO SCH (09:40)
[2021-03-03] MEDS: HEPARIN 5,000 UNIT/1 ML VIAL SUB-Q SCH ×2 (09:41→21:33)
[2021-03-03] MEDS: SPIRONOLACTONE 25 MG TAB PO SCH (09:41)
[2021-03-03] MEDS: carvediloL 25 MG TAB PO SCH ×2 (09:41→21:33)
[2021-03-03] MEDS: POTASSIUM CHLORIDE ER 20 MEQ TAB PO SCH (09:41)
[2021-03-03] MEDS: LISINOPRIL 10 MG TAB PO SCH (09:41)
[2021-03-03] MEDS: ARFORMOTEROL 15 MCG/2 ML NEBU IH SCH ×2 (09:46→20:37)
[2021-03-03] MEDS: BUDESONIDE 0.5 MG/2 ML NEBU IH SCH ×2 (09:47→20:37)
[2021-03-03] MEDS: cefTRIAXone/NS 2 GM/100 ML 2 GM/100 ML BAG IV SCH (10:44)
--- NOTE | 2021-03-03 12:56 | Progress Note ---
Assessment and Plan Acute respiratory failure with hypoxia * Patient has been extubated and transferred to telemetry floor Acute on chronic HFrEF in setting of severe nonischemic dilated cardiomyopathy * [facility] 11/2020 shows normal coronary arteries * Echocardiogram reviewed (11/21/2020): LVEF is 20 to 25%. LV is moderately dilated. Mild LVH. Severe global hypokinesis of LV. Right ventricle is moderately dilated and mildly hypokinetic. LA is moderately dilated. RA is mildly dilated. Bioprosthetic aortic valve is present. Mild MR. Moderate TR. RVSP is 43 mmHg, mild pulmonary hypertension. * GDMT. No ACEI/ARB in setting of LILIBETH. * Continue diuresis with Bumex, Aldactone. Replete potassium as needed. * Patient has previously been considered for LifeVest placement. But patient ultimately refused placement. Patient has significant history of medical noncompliance and abandonment of care AGAINST MEDICAL ADVICE. Bioprosthetic aortic valve * Aspirin 81 mg daily recommended NSTEMI suspect type II in setting of LILIBETH * Troponin is elevated, subacute and nonspecific, trending downwards. Continue to trend CE's. In setting of normal coronary arteries as confirmed in [facility] performed on November 2020. Heparin gtt is not recommended. DVT prophylaxis * Heparin SQ 3+ bilateral lower extremity edema remains. We will continue diuresis. We will follow This patient was seen in conjunction with Dr Lopez who agrees with assessment plan of care - Patient Problems (1) Acute respiratory failure with hypoxia Current Visit: Yes Status: Acute Plan to address problem: (2) Acute on chronic HFrEF (heart failure with reduced ejection fraction) Current Visit: No Status: Acute Plan to address problem: (3) COPD (chronic obstructive pulmonary disease) Current Visit: Yes Status: Chronic Qualifiers: Emphysema type: unspecified Plan to address problem: (4) Hypertension Current Visit: Yes Status: Chronic Qualifiers: Hypertension type: primary hypertension Qualified Code(s): I10 - Essential (primary) hypertension Plan to address problem: (5) Elevated troponin Current Visit: Yes Status: Acute Plan to address problem: (6) LILIBETH (acute kidney injury) Current Visit: Yes Status: Acute Plan to address problem: (7) DVT prophylaxis Current Visit: Yes Status: Acute Plan to address problem: Subjective Date of service: 03/03/21 Principal diagnosis: Acute respiratory failure with hypoxia Interval history: Patient resting comfortably in bed. Patient has been extubated and transferred to telemetry floor. No chest pain or shortness of breath overnight Telemetry reviewed: Sinus rhythm 81 with several short episodes of second-degree AV block Mobitz 1. Objective Last Vital Signs Temp 98.3 F 03/03/21 11:59 Pulse 84 03/03/21 11:59 Resp 20 03/03/21 11:59 BP 112/75 03/03/21 11:59 Pulse Ox 96 03/03/21 11:59 - Physical Examination General: No Apparent Distress HEENT: Positive: Normocephaly, Mucus Membranes Moist Neck: Positive: neck supple, trachea midline Cardiac: Positive: Reg Rate and Rhythm, S1/S2 Lungs: Positive: Normal Exam, Normal Breath Sounds Neuro: Positive: Grossly Intact Abdomen: Positive: Soft, Distended Skin: Negative: Rash, Wound Musculoskeletal: No Pain Extremities: Present: upper extr. pulses, lower extr. pulses, +3 Edema - Labs and Meds Comprehensive Metabolic Panel 03/02/21 03/03/21 Range/Units 19:41 04:37 Sodium 143 (137-145) mmol/L Potassium 3.7 4.1 (3.6-5.0) mmol/L Chloride 105.3 (98-107) mmol/L Carbon Dioxide 23 (22-30) mmol/L BUN 40 H (9-20) mg/dL Creatinine 1.0 (0.8-1.3) mg/dL Glucose 137 H (75-100) mg/dL Calcium 8.3 L (8.4-10.2) mg/dL - Imaging and Cardiology EKG: report reviewed, image reviewed Echo: report reviewed Cardiac cath: report reviewed - Telemetry EKG Rhythm: Sinus Rhythm - EKG Sinus rhythms and dysrhythmias: sinus tachycardia - Allied health notes Allied health notes reviewed: nursing
--- NOTE | 2021-03-03 14:53 | Progress Note ---
Assessment and Plan Acute hypoxemic respiratory failure Bilateral pulmonary infiltrates (pneumonia / pulmonary edema) Acute congestive heart failure exacerbation Uncontrolled hypertension Chronic obstructive pulmonary disease Non-ST elevation myocardial infarction COPD Acute kidney injury Mild metabolic acidosis at presentation Elevated serum transaminases Obesity History of gastroesophageal reflux disease History of arthritis oropharyngeal dysphagia - continue diuresis - prn supplemental oxygen to keep O2 sats > 90% - prn bronchodilators (JAMES) with pulm hygiene per RT - taper off systemic steroids - continue inhaled corticosteroids - continue to avoid nephrotoxins, renally dose all medications - continue mobility protocols to prevent pressure ulcers - PT/OT as tolerated - Wound care per RN/WCT - continue accuchecks with glycemic control per SSI for target blood glucose < 180 mg/dL - tobacco abstinence strongly counseled at the bedside - home oxygen evaluation at discharge - GI & VTE prophylaxis - Flu & pneumovax per protocol - Pulmonary out patient follow up for PFTs and optimization of respiratory status - continue other care per attending / other consultants - prn analgesia per pain score ... re-evaluate in am & prn Subjective Date of service: 03/03/21 Principal diagnosis: Ac hypoxemic resp failure; PNA; Pulm edema; AE-CHF; NSTEMI; HTN; LILIBETH Interval history: Patient is seen today for: Acute hypoxemic respiratory failure; pneumonia; acute pulmonary edema; Acute CHF; NSTEMI; HTN; LILIBETH; Obesity Seen and examined at bedside; 24hour events reviewed; nursing and respiratory care staff consulted; no adverse overnight events reported to me; resting peacefully in bed; Objective Vital Signs - 12hr 03/03/21 03/03/21 03/03/21 03:55 08:19 08:52 Temperature 98.0 F 98.0 F Pulse Rate 137 H 85 Pulse Rate [ Anterior Bilateral Throughout] Respiratory 18 20 Rate Respiratory Rate [Anterior Bilateral Throughout] Blood Pressure 102/70 91/58 O2 Sat by Pulse 91 96 92 Oximetry 03/03/21 03/03/21 03/03/21 09:34 09:48 11:59 Temperature 98.3 F Pulse Rate 84 Pulse Rate [ 115 H Anterior Bilateral Throughout] Respiratory 20 Rate Respiratory 20 Rate [Anterior Bilateral Throughout] Blood Pressure 112/75 O2 Sat by Pulse 94 96 Oximetry Constitutional: no acute distress Eyes: non-icteric ENT: oropharynx moist Neck: supple, no lymphadenopathy, no JVD Effort: normal Ascultation: Bilateral: diminished breath sounds, rhonchi (scant) Percussion: Bilateral: not dull Cardiovascular: regular rate and rhythm, other Gastrointestinal: normoactive bowel sounds, soft, non-tender, non-distended (protuberant) Integumentary: normal Extremities: no cyanosis, no edema, pulses normal, no ischemia or petechiae Neurologic: non-focal exam, pupils equal and round, CN II-XII normal, motor strength normal and Psychiatric: mood appropriate, affect normal CBC and BMP: 03/02/21 06:30 03/03/21 04:37 ABG, PT/INR, D-dimer: ABG ABG pH 7.419 (7.320-7.450) 03/02/21 09:03 POC ABG pCO2 41.6 mmHg (32.0-48.0) 03/02/21 09:03 POC ABG pO2 129.6 mmHg (83-108) H 03/02/21 09:03 POC ABG HCO3 26.3 03/02/21 09:03 ABG O2 Saturation 98.5 (0-100) 03/02/21 09:03 PT/INR, D-dimer PT 16.1 Sec. (12.2-14.9) H 02/28/21 14:00 INR 1.24 (0.87-1.13) H 02/28/21 14:00 Abnormal lab findings: Abnormal Labs 02/28/21 02/28/21 02/28/21 14:00 14:00 14:00 WBC 14.0 H RBC Hgb Hct MCV 98 H MCH RDW 18.0 H Seg Neuts % (Manual) 97.0 H Lymphocytes % (Manual) 2.0 L Seg Neutrophils # Man 13.6 H Lymphocytes # (Manual) 0.3 L PT 16.1 H INR 1.24 H ABG pH POC ABG pO2 ABG Hemoglobin ABG Oxyhemoglobin ABG Sodium ABG Potassium ABG Chloride ABG Glucose Carboxyhemoglobin Sodium 135 L Potassium Chloride Carbon Dioxide 20 L BUN 38 H Creatinine 1.5 H Glucose 196 H POC Glucose Hemoglobin A1c Calcium Magnesium AST 49 H ALT 60 H Alkaline Phosphatase 218 H Total Creatine Kinase CK-MB (CK-2) Rel Index Troponin T 0.103 H* NT-Pro-B Natriuret Pep Total Protein Albumin 3.0 L Triglycerides HDL Cholesterol Arterial Blood Glucose Arterial Blood Ionized Calcium 02/28/21 02/28/21 02/28/21 14:00 16:07 19:04 WBC RBC Hgb Hct MCV MCH RDW Seg Neuts % (Manual) Lymphocytes % (Manual) Seg Neutrophils # Man Lymphocytes # (Manual) PT INR ABG pH 7.265 L POC ABG pO2 ABG Hemoglobin ABG Oxyhemoglobin 93.4 L ABG Sodium 134.9 L ABG Potassium ABG Chloride ABG Glucose 192 H Carboxyhemoglobin Sodium Potassium Chloride Carbon Dioxide BUN Creatinine Glucose POC Glucose Hemoglobin A1c Calcium Magnesium AST ALT Alkaline Phosphatase Total Creatine Kinase CK-MB (CK-2) Rel Index Troponin T 0.149 H* D NT-Pro-B Natriuret Pep > 75166 H Total Protein Albumin Triglycerides 179 H HDL Cholesterol 32 L Arterial Blood Glucose 192 H Arterial Blood Ionized Calcium 4.4 L 03/01/21 03/01/21 03/01/21 03:23 08:29 08:29 WBC 11.9 H RBC 3.56 L Hgb 11.4 L Hct 34.6 L MCV 97 H MCH RDW 18.1 H Seg Neuts % (Manual) 97.0 H Lymphocytes % (Manual) Seg Neutrophils # Man 11.5 H Lymphocytes # (Manual) 0.0 L PT INR ABG pH POC ABG pO2 147.5 H ABG Hemoglobin ABG Oxyhemoglobin 98.7 H ABG Sodium ABG Potassium 2.9 L ABG Chloride 108.0 H ABG Glucose 108 H Carboxyhemoglobin 0 L Sodium 146 H D Potassium 3.0 L D Chloride Carbon Dioxide BUN 42 H Creatinine 1.6 H Glucose POC Glucose Hemoglobin A1c Calcium Magnesium AST 58 H ALT 74 H Alkaline Phosphatase 174 H Total Creatine Kinase CK-MB (CK-2) Rel Index Troponin T NT-Pro-B Natriuret Pep Total Protein 5.0 L D Albumin 2.9 L Triglycerides HDL Cholesterol Arterial Blood Glucose 108 H Arterial Blood Ionized Calcium 4.5 L 03/01/21 03/01/21 03/01/21 08:29 08:29 17:58 WBC RBC Hgb Hct MCV MCH RDW Seg Neuts % (Manual) Lymphocytes % (Manual) Seg Neutrophils # Man Lymphocytes # (Manual) PT INR ABG pH POC ABG pO2 ABG Hemoglobin ABG Oxyhemoglobin ABG Sodium ABG Potassium ABG Chloride ABG Glucose Carboxyhemoglobin Sodium Potassium Chloride Carbon Dioxide BUN Creatinine Glucose POC Glucose Hemoglobin A1c 6.4 H Calcium Magnesium AST ALT Alkaline Phosphatase Total Creatine Kinase 43 L 37 L CK-MB (CK-2) Rel Index 5.3 H 6.2 H Troponin T NT-Pro-B Natriuret Pep Total Protein Albumin Triglycerides HDL Cholesterol Arterial Blood Glucose Arterial Blood Ionized Calcium 03/01/21 03/02/21 03/02/21 21:13 04:37 06:30 WBC 11.1 H RBC 3.56 L Hgb 11.6 L Hct 34.9 L MCV 98 H MCH 33 H RDW 18.0 H Seg Neuts % (Manual) Lymphocytes % (Manual) Seg Neutrophils # Man Lymphocytes # (Manual) PT INR ABG pH 7.454 H POC ABG pO2 146.4 H ABG Hemoglobin 11.8 L ABG Oxyhemoglobin 98.2 H ABG Sodium ABG Potassium 3.2 L ABG Chloride 113.0 H ABG Glucose 97 H Carboxyhemoglobin 0.3 L Sodium Potassium Chloride Carbon Dioxide BUN Creatinine Glucose POC Glucose Hemoglobin A1c Calcium Magnesium AST ALT Alkaline Phosphatase Total Creatine Kinase 33 L CK-MB (CK-2) Rel Index 6.6 H Troponin T NT-Pro-B Natriuret Pep Total Protein Albumin Triglycerides HDL Cholesterol Arterial Blood Glucose 97 H Arterial Blood Ionized Calcium 4.5 L 03/02/21 03/02/21 03/03/21 06:30 09:03 04:37 WBC RBC Hgb Hct MCV MCH RDW Seg Neuts % (Manual) Lymphocytes % (Manual) Seg Neutrophils # Man Lymphocytes # (Manual) PT INR ABG pH POC ABG pO2 129.6 H ABG Hemoglobin ABG Oxyhemoglobin 98.2 H ABG Sodium ABG Potassium 3.2 L ABG Chloride 112.0 H ABG Glucose 101 H Carboxyhemoglobin 0 L Sodium 148 H Potassium 3.1 L Chloride 110.0 H Carbon Dioxide BUN 44 H 40 H Creatinine Glucose 137 H POC Glucose Hemoglobin A1c Calcium 8.3 L Magnesium 2.60 H AST ALT Alkaline Phosphatase Total Creatine Kinase CK-MB (CK-2) Rel Index Troponin T 0.057 H D 0.047 H NT-Pro-B Natriuret Pep Total Protein Albumin Triglycerides HDL Cholesterol Arterial Blood Glucose 101 H Arterial Blood Ionized Calcium 4.5 L 03/03/21 03/03/21 06:02 11:59 WBC RBC Hgb Hct MCV MCH RDW Seg Neuts % (Manual) Lymphocytes % (Manual) Seg Neutrophils # Man Lymphocytes # (Manual) PT INR ABG pH POC ABG pO2 ABG Hemoglobin ABG Oxyhemoglobin ABG Sodium ABG Potassium ABG Chloride ABG Glucose Carboxyhemoglobin Sodium Potassium Chloride Carbon Dioxide BUN Creatinine Glucose POC Glucose 168 H 211 H Hemoglobin A1c Calcium Magnesium AST ALT Alkaline Phosphatase Total Creatine Kinase CK-MB (CK-2) Rel Index Troponin T NT-Pro-B Natriuret Pep Total Protein Albumin Triglycerides HDL Cholesterol Arterial Blood Glucose Arterial Blood Ionized Calcium Allied health notes reviewed: nursing
[2021-03-04] MEDS: BUMETANIDE 1 MG/4 ML INJ IV SCH ×2 (06:43→17:26)
--- NOTE | 2021-03-04 08:39 | Progress Note ---
Assessment and Plan Acute hypoxemic respiratory failure Bilateral pulmonary infiltrates (pneumonia / pulmonary edema) Acute congestive heart failure exacerbation Uncontrolled hypertension Chronic obstructive pulmonary disease Non-ST elevation myocardial infarction COPD Acute kidney injury Mild metabolic acidosis at presentation Elevated serum transaminases Obesity History of gastroesophageal reflux disease History of arthritis oropharyngeal dysphagia - continue diuresis - prn supplemental oxygen to keep O2 sats > 90% - prn bronchodilators (JAMES) with pulm hygiene per RT - steroids taper - continue inhaled corticosteroids - continue to avoid nephrotoxins, renally dose all medications - continue mobility protocols to prevent pressure ulcers - PT/OT , increase activity - Wound care per RN/WCT - continue accuchecks with glycemic control per SSI for target blood glucose < 180 mg/dL - VTE prophylaxis - Flu & pneumovax per protocol - Pulmonary out patient follow up for PFTs and optimization of respiratory status - continue other care per attending / other consultants -discharge planning Subjective Date of service: 02/25/21 Principal diagnosis: Ac hypoxemic resp failure; PNA; Pulm edema; AE-CHF; NSTEMI; HTN; LILIBETH Interval history: Patient is seen today for: Acute hypoxemic respiratory failure; pneumonia; acute pulmonary edema; Acute CHF; NSTEMI; HTN; LILIBETH; Obesity Seen and examined at bedside; 24hour events reviewed; nursing and respiratory care staff consulted; no adverse overnight events reported to me;sitting up in bed, denies any chest pain, no shortness of breath. No fevers, nausea or vomiting Objective Vital Signs - 12hr 03/03/21 03/03/21 03/04/21 22:00 23:36 04:54 Temperature 98.8 F 98.3 F Pulse Rate 85 87 Respiratory 18 18 Rate Blood Pressure 126/80 116/90 Blood Pressure [Right] O2 Sat by Pulse 96 92 97 Oximetry 03/04/21 03/04/21 07:44 08:26 Temperature 98.2 F Pulse Rate 79 Respiratory 17 Rate Blood Pressure Blood Pressure 127/89 [Right] O2 Sat by Pulse 96 95 Oximetry Constitutional: no acute distress, other (obese) Eyes: non-icteric ENT: oropharynx moist Neck: supple, no lymphadenopathy, no JVD Effort: normal Ascultation: Bilateral: diminished breath sounds Percussion: Bilateral: not dull Cardiovascular: regular rate and rhythm, other (S1,S2) Gastrointestinal: normoactive bowel sounds, soft, non-tender, non-distended (protuberant) Integumentary: normal Extremities: no cyanosis, no edema, pulses normal, no ischemia or petechiae Neurologic: non-focal exam, pupils equal and round, CN II-XII normal, motor strength normal and Psychiatric: mood appropriate, affect normal CBC and BMP: 03/05/21 04:20 03/05/21 04:20 ABG, PT/INR, D-dimer: ABG ABG pH 7.419 (7.320-7.450) 03/02/21 09:03 POC ABG pCO2 41.6 mmHg (32.0-48.0) 03/02/21 09:03 POC ABG pO2 129.6 mmHg (83-108) H 03/02/21 09:03 POC ABG HCO3 26.3 03/02/21 09:03 ABG O2 Saturation 98.5 (0-100) 03/02/21 09:03 PT/INR, D-dimer PT 16.1 Sec. (12.2-14.9) H 02/28/21 14:00 INR 1.24 (0.87-1.13) H 02/28/21 14:00 Abnormal lab findings: Abnormal Labs 02/28/21 02/28/21 02/28/21 14:00 14:00 14:00 WBC 14.0 H RBC Hgb Hct MCV 98 H MCH RDW 18.0 H Seg Neuts % (Manual) 97.0 H Lymphocytes % (Manual) 2.0 L Seg Neutrophils # Man 13.6 H Lymphocytes # (Manual) 0.3 L PT 16.1 H INR 1.24 H ABG pH POC ABG pO2 ABG Hemoglobin ABG Oxyhemoglobin ABG Sodium ABG Potassium ABG Chloride ABG Glucose Carboxyhemoglobin Sodium 135 L Potassium Chloride Carbon Dioxide 20 L BUN 38 H Creatinine 1.5 H Glucose 196 H POC Glucose Hemoglobin A1c Calcium Magnesium AST 49 H ALT 60 H Alkaline Phosphatase 218 H Total Creatine Kinase CK-MB (CK-2) Rel Index Troponin T 0.103 H* NT-Pro-B Natriuret Pep Total Protein Albumin 3.0 L Triglycerides HDL Cholesterol Arterial Blood Glucose Arterial Blood Ionized Calcium 02/28/21 02/28/21 02/28/21 14:00 16:07 19:04 WBC RBC Hgb Hct MCV MCH RDW Seg Neuts % (Manual) Lymphocytes % (Manual) Seg Neutrophils # Man Lymphocytes # (Manual) PT INR ABG pH 7.265 L POC ABG pO2 ABG Hemoglobin ABG Oxyhemoglobin 93.4 L ABG Sodium 134.9 L ABG Potassium ABG Chloride ABG Glucose 192 H Carboxyhemoglobin Sodium Potassium Chloride Carbon Dioxide BUN Creatinine Glucose POC Glucose Hemoglobin A1c Calcium Magnesium AST ALT Alkaline Phosphatase Total Creatine Kinase CK-MB (CK-2) Rel Index Troponin T 0.149 H* D NT-Pro-B Natriuret Pep > 33750 H Total Protein Albumin Triglycerides 179 H HDL Cholesterol 32 L Arterial Blood Glucose 192 H Arterial Blood Ionized Calcium 4.4 L 03/01/21 03/01/21 03/01/21 03:23 08:29 08:29 WBC 11.9 H RBC 3.56 L Hgb 11.4 L Hct 34.6 L MCV 97 H MCH RDW 18.1 H Seg Neuts % (Manual) 97.0 H Lymphocytes % (Manual) Seg Neutrophils # Man 11.5 H Lymphocytes # (Manual) 0.0 L PT INR ABG pH POC ABG pO2 147.5 H ABG Hemoglobin ABG Oxyhemoglobin 98.7 H ABG Sodium ABG Potassium 2.9 L ABG Chloride 108.0 H ABG Glucose 108 H Carboxyhemoglobin 0 L Sodium 146 H D Potassium 3.0 L D Chloride Carbon Dioxide BUN 42 H Creatinine 1.6 H Glucose POC Glucose Hemoglobin A1c Calcium Magnesium AST 58 H ALT 74 H Alkaline Phosphatase 174 H Total Creatine Kinase CK-MB (CK-2) Rel Index Troponin T NT-Pro-B Natriuret Pep Total Protein 5.0 L D Albumin 2.9 L Triglycerides HDL Cholesterol Arterial Blood Glucose 108 H Arterial Blood Ionized Calcium 4.5 L 03/01/21 03/01/21 03/01/21 08:29 08:29 17:58 WBC RBC Hgb Hct MCV MCH RDW Seg Neuts % (Manual) Lymphocytes % (Manual) Seg Neutrophils # Man Lymphocytes # (Manual) PT INR ABG pH POC ABG pO2 ABG Hemoglobin ABG Oxyhemoglobin ABG Sodium ABG Potassium ABG Chloride ABG Glucose Carboxyhemoglobin Sodium Potassium Chloride Carbon Dioxide BUN Creatinine Glucose POC Glucose Hemoglobin A1c 6.4 H Calcium Magnesium AST ALT Alkaline Phosphatase Total Creatine Kinase 43 L 37 L CK-MB (CK-2) Rel Index 5.3 H 6.2 H Troponin T NT-Pro-B Natriuret Pep Total Protein Albumin Triglycerides HDL Cholesterol Arterial Blood Glucose Arterial Blood Ionized Calcium 03/01/21 03/02/21 03/02/21 21:13 04:37 06:30 WBC 11.1 H RBC 3.56 L Hgb 11.6 L Hct 34.9 L MCV 98 H MCH 33 H RDW 18.0 H Seg Neuts % (Manual) Lymphocytes % (Manual) Seg Neutrophils # Man Lymphocytes # (Manual) PT INR ABG pH 7.454 H POC ABG pO2 146.4 H ABG Hemoglobin 11.8 L ABG Oxyhemoglobin 98.2 H ABG Sodium ABG Potassium 3.2 L ABG Chloride 113.0 H ABG Glucose 97 H Carboxyhemoglobin 0.3 L Sodium Potassium Chloride Carbon Dioxide BUN Creatinine Glucose POC Glucose Hemoglobin A1c Calcium Magnesium AST ALT Alkaline Phosphatase Total Creatine Kinase 33 L CK-MB (CK-2) Rel Index 6.6 H Troponin T NT-Pro-B Natriuret Pep Total Protein Albumin Triglycerides HDL Cholesterol Arterial Blood Glucose 97 H Arterial Blood Ionized Calcium 4.5 L 03/02/21 03/02/21 03/03/21 06:30 09:03 04:37 WBC RBC Hgb Hct MCV MCH RDW Seg Neuts % (Manual) Lymphocytes % (Manual) Seg Neutrophils # Man Lymphocytes # (Manual) PT INR ABG pH POC ABG pO2 129.6 H ABG Hemoglobin ABG Oxyhemoglobin 98.2 H ABG Sodium ABG Potassium 3.2 L ABG Chloride 112.0 H ABG Glucose 101 H Carboxyhemoglobin 0 L Sodium 148 H Potassium 3.1 L Chloride 110.0 H Carbon Dioxide BUN 44 H 40 H Creatinine Glucose 137 H POC Glucose Hemoglobin A1c Calcium 8.3 L Magnesium 2.60 H AST ALT Alkaline Phosphatase Total Creatine Kinase CK-MB (CK-2) Rel Index Troponin T 0.057 H D 0.047 H NT-Pro-B Natriuret Pep Total Protein Albumin Triglycerides HDL Cholesterol Arterial Blood Glucose 101 H Arterial Blood Ionized Calcium 4.5 L 03/03/21 03/03/21 03/03/21 06:02 11:59 16:31 WBC RBC Hgb Hct MCV MCH RDW Seg Neuts % (Manual) Lymphocytes % (Manual) Seg Neutrophils # Man Lymphocytes # (Manual) PT INR ABG pH POC ABG pO2 ABG Hemoglobin ABG Oxyhemoglobin ABG Sodium ABG Potassium ABG Chloride ABG Glucose Carboxyhemoglobin Sodium Potassium Chloride Carbon Dioxide BUN Creatinine Glucose POC Glucose 168 H 211 H 176 H Hemoglobin A1c Calcium Magnesium AST ALT Alkaline Phosphatase Total Creatine Kinase CK-MB (CK-2) Rel Index Troponin T NT-Pro-B Natriuret Pep Total Protein Albumin Triglycerides HDL Cholesterol Arterial Blood Glucose Arterial Blood Ionized Calcium 03/03/21 03/04/21 21:12 08:25 WBC RBC Hgb Hct MCV MCH RDW Seg Neuts % (Manual) Lymphocytes % (Manual) Seg Neutrophils # Man Lymphocytes # (Manual) PT INR ABG pH POC ABG pO2 ABG Hemoglobin ABG Oxyhemoglobin ABG Sodium ABG Potassium ABG Chloride ABG Glucose Carboxyhemoglobin Sodium Potassium Chloride Carbon Dioxide BUN Creatinine Glucose POC Glucose 180 H 176 H Hemoglobin A1c Calcium Magnesium AST ALT Alkaline Phosphatase Total Creatine Kinase CK-MB (CK-2) Rel Index Troponin T NT-Pro-B Natriuret Pep Total Protein Albumin Triglycerides HDL Cholesterol Arterial Blood Glucose Arterial Blood Ionized Calcium Chest x-ray: image reviewed Allied health notes reviewed: nursing
[2021-03-04] MEDS: ARFORMOTEROL 15 MCG/2 ML NEBU IH SCH ×2 (09:12→19:51)
[2021-03-04] MEDS: BUDESONIDE 0.5 MG/2 ML NEBU IH SCH ×2 (09:14→19:51)
--- NOTE | 2021-03-04 09:36 | Progress Note ---
Assessment and Plan Assessment and plan: This is a 40-year-old -[place] male presents to the emergency department via EMS from home with a complaint of a 2 to 3-day history of progressively worsening shortness of breath and associated lower extremity swelling. He has a history of CHF, COPD, hypertension, previous NSTEMI but normal coronaries as of a left heart catheterization in November of this year. He has a former smoker and has a previous history of alcohol abuse. Patient follows with Dr. Lopez at [facility] cardiology. EMS found the patient to be hypoxic in the low 80s and the patient was breathing very fast. He was placed on 4 L oxygen via nasal cannula, which was then increased to 6 L upon presentation here. The patient was found to have a low-grade fever, so along with his tachycardia, a code sepsis was initiated. Patient says that he has increased shortness of breath with exertion or with laying flat. He denies any chest pain, cough, nausea, vomiting, abdominal pain. No recent travel or sick contacts at home. No known exposure to anyone with COVID-19. 03/01/2021 Patient intubated Weaning in progress Echocardiogram shows ejection fraction of 25 to 30% 03/02/2021 Patient could be weaned off Patient extubated Comfortable on 2 L nasal cannula oxygen Patient to be transferred to medical floor with remote telemetry 03/03: Continue supportive care, Cardiology input noted. monitor and replace elect rolytes. 03/04: Discussed with fire support specialist today we will try to diurese with Bumex for 1 more day. Anticipate discharge in a.m. Otherwise continue supportive care (1) Acute respiratory failure with hypoxia Current Visit: Yes Status: Acute Plan to address problem: Patient sats were very low at the time of admission to the emergency room BiPAP did not improve Patient had to be intubated and patient is on vent management Skein Winder consult requested Patient could be extubated today After extubation patient comfortable and walking around the room Patient to be transferred to regular medical floor (2) Acute on chronic HFrEF (heart failure with reduced ejection fraction) Current Visit: No Status: Acute Plan to address problem: IV Lasix for now Daily intake and output Daily weights Echocardiogram for ejection fraction Cardiology consult appreciated LVEF 25 to 30% (3) COPD (chronic obstructive pulmonary disease) Current Visit: Yes Status: Chronic Qualifiers: Emphysema type: unspecified Plan to address problem: Continue duo nebs and steroids (4) Hypertension Current Visit: Yes Status: Chronic Qualifiers: Hypertension type: primary hypertension Qualified Code(s): I10 - Essential (primary) hypertension Plan to address problem: Continue antihypertensives and adjust medications (5) Elevated troponin Current Visit: Yes Status: Acute Plan to address problem: May be a troponin leak We will get a CK and CK-MBs (6) LILIBETH (acute kidney injury)Secondary to vasomotor nephropathy Current Visit: Yes Status: Acute Plan to address problem: No IV fluids at this time because of the severe CHF (7) DVT prophylaxis Current Visit: Yes Status: Acute Plan to address problem: Heparin and GI prophylaxis History Interval history: Patient seen and examined resting comfortably no new complaints ambulating. Hospitalist Physical - Physical exam Narrative exam: General appearance: Present: no acute distress, well-nourished - EENT Eyes: PERRL, EOM intact ENT: hearing intact, clear oral mucosa Ears: bilateral: normal - Neck Neck: supple, normal ROM - Respiratory Respiratory effort: normal Respiratory: bilateral: CTA - Breasts Breasts: normal - Cardiovascular Heart rate: 78 Rhythm: regular Heart Sounds: Present: S1 & S2. Absent: gallop, rub Extremities: pulses intact, No edema, normal color, Full ROM - Gastrointestinal General gastrointestinal: Present: soft, non-tender, non-distended, normal bowel sounds - Genitourinary Male genitourinary: normal - Integumentary Integumentary: Bilateral pitting edema, sacral wound noted dressing in place. - Musculoskeletal Musculoskeletal: 1, strength equal bilaterally - Neurologic Neurologic: moves all extremities - Psychiatric Psychiatric: memory intact, appropriate mood/affect, intact judgment & insight - Constitutional Vitals: Temp Pulse Resp BP Pulse Ox 98.2 F 79 17 127/89 95 03/04/21 08:26 03/04/21 08:26 03/04/21 08:26 03/04/21 08:26 03/04/21 08:26 General appearance: Present: no acute distress, mild distress, well-nourished HEART Score - HEART Score Troponin: Troponin T 0.047 ng/mL (0.00-0.029) H 03/03/21 04:37 Results - Labs CBC & Chem 7: 03/02/21 06:30 03/03/21 04:37 Labs: Laboratory Last Values WBC 11.1 K/mm3 (4.5-11.0) H 03/02/21 06:30 RBC 3.56 M/mm3 (3.65-5.03) L 03/02/21 06:30 Hgb 11.6 gm/dl (11.8-15.2) L 03/02/21 06:30 Hct 34.9 % (35.5-45.6) L 03/02/21 06:30 MCV 98 fl (84-94) H 03/02/21 06:30 MCH 33 pg (28-32) H 03/02/21 06:30 MCHC 33 % (32-34) 03/02/21 06:30 RDW 18.0 % (13.2-15.2) H 03/02/21 06:30 Plt Count 163 K/mm3 (140-440) 03/02/21 06:30 Add Manual Diff Complete 03/01/21 08:29 Total Counted 100 03/01/21 08:29 Seg Neutrophils % Platen Press Operator 03/01/21 08:29 Seg Neuts % (Manual) 97.0 % (40.0-70.0) H 03/01/21 08:29 Band Neutrophils % 3.0 % 03/01/21 08:29 Lymphocytes % (Manual) 2.0 % (13.4-35.0) L 02/28/21 14:00 Monocytes % (Manual) 1.0 % (0.0-7.3) 02/28/21 14:00 Nucleated RBC % Not Reportable 03/01/21 08:29 Seg Neutrophils # Man 11.5 K/mm3 (1.8-7.7) H 03/01/21 08:29 Band Neutrophils # 0.4 K/mm3 03/01/21 08:29 Lymphocytes # (Manual) 0.0 K/mm3 (1.2-5.4) L 03/01/21 08:29 Abs React Lymphs (Man) 0.0 K/mm3 03/01/21 08:29 Monocytes # (Manual) 0.0 K/mm3 (0.0-0.8) 03/01/21 08:29 Eosinophils # (Manual) 0.0 K/mm3 (0.0-0.4) 03/01/21 08:29 Basophils # (Manual) 0.0 K/mm3 (0.0-0.1) 03/01/21 08:29 Metamyelocytes # 0.0 K/mm3 03/01/21 08:29 Myelocytes # 0.0 K/mm3 03/01/21 08:29 Promyelocytes # 39.5 K/mm3 03/01/21 08:29 Blast Cells # 0.0 K/mm3 03/01/21 08:29 WBC Morphology Not Reportable 03/01/21 08:29 Hypersegmented Neuts Not Reportable 03/01/21 08:29 Hyposegmented Neuts Not Reportable 03/01/21 08:29 Hypogranular Neuts Not Reportable 03/01/21 08:29 Smudge Cells Not Reportable 03/01/21 08:29 Toxic Granulation 1+ 03/01/21 08:29 Toxic Vacuolation Few 03/01/21 08:29 Dohle Bodies Not Reportable 03/01/21 08:29 Pelger-Huet Anomaly Not Reportable 03/01/21 08:29 Nadya Rods Not Reportable 03/01/21 08:29 Platelet Estimate Cons 03/01/21 08:29 Clumped Platelets Not Reportable 03/01/21 08:29 Plt Clumps, EDTA Not Reportable 03/01/21 08:29 Large Platelets Few 03/01/21 08:29 Giant Platelets Not Reportable 03/01/21 08:29 Platelet Satelliting Not Reportable 03/01/21 08:29 Plt Morphology Comment Not Reportable 03/01/21 08:29 RBC Morphology Not Reportable 03/01/21 08:29 Dimorphic RBCs Not Reportable 03/01/21 08:29 Polychromasia Not Reportable 03/01/21 08:29 Hypochromasia Not Reportable 03/01/21 08:29 Poikilocytosis Not Reportable 03/01/21 08:29 Anisocytosis Not Reportable 03/01/21 08:29 Microcytosis Not Reportable 03/01/21 08:29 Macrocytosis Not Reportable 03/01/21 08:29 Spherocytes Not Reportable 03/01/21 08:29 Pappenheimer Bodies Not Reportable 03/01/21 08:29 Sickle Cells Not Reportable 03/01/21 08:29 Target Cells 1+ 03/01/21 08:29 Tear Drop Cells Not Reportable 03/01/21 08:29 Ovalocytes 1+ 03/01/21 08:29 Helmet Cells Not Reportable 03/01/21 08:29 Boyd-Allgood Bodies Not Reportable 03/01/21 08:29 Palisade Rings Not Reportable 03/01/21 08:29 [place] Cells 1+ 03/01/21 08:29 Bite Cells Not Reportable 03/01/21 08:29 Crenated Cell Not Reportable 03/01/21 08:29 Elliptocytes Not Reportable 03/01/21 08:29 Acanthocytes (Spur) Not Reportable 03/01/21 08:29 Rouleaux Not Reportable 03/01/21 08:29 Hemoglobin C Crystals Not Reportable 03/01/21 08:29 Schistocytes Not Reportable 03/01/21 08:29 Malaria parasites Not Reportable 03/01/21 08:29 Louie Bodies Not Reportable 03/01/21 08:29 Hem Pathologist Commnt No 03/01/21 08:29 PT 16.1 Sec. (12.2-14.9) H 02/28/21 14:00 INR 1.24 (0.87-1.13) H 02/28/21 14:00 ABG pH 7.419 (7.320-7.450) 03/02/21 09:03 POC ABG pCO2 41.6 mmHg (32.0-48.0) 03/02/21 09:03 POC ABG pO2 129.6 mmHg (83-108) H 03/02/21 09:03 POC ABG HCO3 26.3 03/02/21 09:03 ABG O2 Saturation 98.5 (0-100) 03/02/21 09:03 POC ABG Base Excess 1.7 03/02/21 09:03 ABG Hemoglobin 12.1 (12.0-17.5) 03/02/21 09:03 ABG Oxyhemoglobin 98.2 (94-98) H 03/02/21 09:03 ABG Methemoglobin 0.3 (0.0-1.5) 03/02/21 09:03 ABG Sodium 144.1 mmol/L (136.0-145.0) 03/02/21 09:03 ABG Potassium 3.2 mmol/L (3.40-4.50) L 03/02/21 09:03 ABG Chloride 112.0 mmol/L (98-107) H 03/02/21 09:03 ABG Glucose 101 mg/dL (65-95) H 03/02/21 09:03 Carboxyhemoglobin 0 (0.5-1.5) L 03/02/21 09:03 FiO2 % 40.0 03/02/21 09:03 Sodium 143 mmol/L (137-145) 03/03/21 04:37 Potassium 4.1 mmol/L (3.6-5.0) 03/03/21 04:37 Chloride 105.3 mmol/L (98-107) 03/03/21 04:37 Carbon Dioxide 23 mmol/L (22-30) 03/03/21 04:37 Anion Gap 19 mmol/L 03/03/21 04:37 BUN 40 mg/dL (9-20) H 03/03/21 04:37 Creatinine 1.0 mg/dL (0.8-1.3) 03/03/21 04:37 Estimated GFR > 60 ml/min 03/03/21 04:37 BUN/Creatinine Ratio 40 % 03/03/21 04:37 Glucose 137 mg/dL (75-100) H 03/03/21 04:37 POC Glucose 176 mg/dL (70-105) H 03/04/21 08:25 Hemoglobin A1c 6.4 % (4-6) H 03/01/21 08:29 Lactic Acid 1.40 mmol/L (0.7-2.0) 02/28/21 16:07 Calcium 8.3 mg/dL (8.4-10.2) L 03/03/21 04:37 Magnesium 2.60 mg/dL (1.7-2.3) H 03/02/21 06:30 Total Bilirubin 0.70 mg/dL (0.1-1.2) 03/01/21 08:29 AST 58 units/L (5-40) H 03/01/21 08:29 ALT 74 units/L (7-56) H 03/01/21 08:29 Alkaline Phosphatase 174 units/L (35-129) H 03/01/21 08:29 Total Creatine Kinase 33 units/L (55-170) L 03/01/21 21:13 CK-MB (CK-2) 2.2 ng/mL (0.0-4.0) 03/01/21 21:13 CK-MB (CK-2) Rel Index 6.6 (0-4) H 03/01/21 21:13 Troponin T 0.047 ng/mL (0.00-0.029) H 03/03/21 04:37 NT-Pro-B Natriuret Pep > 55571 pg/mL (0-450) H 02/28/21 14:00 Total Protein 5.0 g/dL (6.3-8.2) L D 03/01/21 08:29 Albumin 2.9 g/dL (3.9-5) L 03/01/21 08:29 Albumin/Globulin Ratio 1.4 % 03/01/21 08:29 Triglycerides 179 mg/dL (2-149) H 02/28/21 19:04 Cholesterol 132 mg/dL (50-199) 02/28/21 19:04 LDL Cholesterol Direct 59 mg/dL (50-130) 02/28/21 19:04 HDL Cholesterol 32 mg/dL (40-59) L 02/28/21 19:04 Cholesterol/HDL Ratio 4.12 % 02/28/21 19:04 Arterial Blood Glucose 101 mg/dL (65-95) H 03/02/21 09:03 Arterial Blood Ionized Calcium 4.5 mg/dL (4.6-5.3) L 03/02/21 09:03 Urine Color Dara (Yellow) 02/28/21 17:59 Urine Turbidity Cloudy (Clear) 02/28/21 17:59 Urine pH 5.0 (5.0-7.0) 02/28/21 17:59 Ur Specific [place] 1.017 (1.003-1.030) 02/28/21 17:59 Urine Protein >500 mg/dL (Negative) 02/28/21 17:59 Urine Glucose (UA) Neg mg/dL (Negative) 02/28/21 17:59 Urine Ketones Neg mg/dL (Negative) 02/28/21 17:59 Urine Blood Sm (Negative) 02/28/21 17:59 Urine Nitrite Neg (Negative) 02/28/21 17:59 Urine Bilirubin Neg (Negative) 02/28/21 17:59 Urine Urobilinogen < 2.0 mg/dL (<2.0) 02/28/21 17:59 Ur Leukocyte Esterase Neg (Negative) 02/28/21 17:59 Urine WBC (Auto) 6.0 /HPF (0.0-6.0) 02/28/21 17:59 Urine RBC (Auto) 5.0 /HPF (0.0-6.0) 02/28/21 17:59 U Epithel Cells (Auto) 2.0 /HPF (0-13.0) 02/28/21 17:59 Urine Bacteria (Auto) 1+ /HPF (Negative) 02/28/21 17:59 Urine Mucus Few /HPF 02/28/21 17:59 Urine Yeast (Budding) 2+ /HPF 02/28/21 17:59 Microbiology: Microbiology 02/28/21 14:00 Peripheral/Venous Blood Culture - Preliminary NO GROWTH AFTER 72 HOURS 02/28/21 14:00 Peripheral/Venous Blood Culture - Preliminary NO GROWTH AFTER 72 HOURS Hyatt/IV: Voiding Method Urinal Active Medications - Current Medications Current Medications: Generic Name Dose Route Start Last Admin Trade Name Freq PRN Reason Stop Dose Admin Acetaminophen 650 mg 02/28/21 20:50 Acetaminophen 325 Mg Tab PO Q4H PRN Pain MILD(1-3)/Fever >100.5/YU Albuterol 2.5 mg 03/01/21 12:53 Albuterol 2.5 Mg/3 Ml Nebu IH Q4HRT PRN Shortness Of Breath Arformoterol Tartrate 15 mcg 03/01/21 20:00 03/04/21 09:12 Arformoterol 15 Mcg/2 Ml Nebu IH 15 mcg Q12HRT AMRITA Administration Aspirin 81 mg 03/01/21 10:00 03/03/21 09:40 Aspirin 81 Mg Tab Chew PO 81 mg QDAY AMRITA Administration Atorvastatin Calcium 40 mg 03/01/21 22:00 03/03/21 21:32 Atorvastatin 40 Mg Tab PO 40 mg QHS AMRITA Administration Budesonide 0.5 mg 03/01/21 20:00 03/04/21 09:14 Budesonide 0.5 Mg/2 Ml Nebu IH 0.5 mg Q12HRT AMRITA Administration Bumetanide 1 mg 03/02/21 18:00 03/04/21 06:43 Bumetanide 1 Mg/4 Ml Inj IV 1 mg BID@0600,1800 AMRITA Administration Carvedilol 25 mg 02/28/21 22:00 03/03/21 21:33 Carvedilol 25 Mg Tab PO 25 mg Q12HR AMRITA Administration Famotidine 20 mg 03/02/21 10:00 03/03/21 21:32 Famotidine 20 Mg Tab PO 20 mg BID AMRITA Administration Heparin Sodium (Porcine) 5,000 unit 02/28/21 22:00 03/03/21 21:33 Heparin 5,000 Unit/1 Ml Vial SUB-Q 5,000 unit Q12HR AMRITA Administration Hydromorphone HCl 0.5 mg 02/28/21 20:50 Hydromorphone 1 Mg/1 Ml Inj IV Q3H PRN Pain , Severe (7-10) Hydrophilic Ointment 1 applic 02/28/21 16:05 Lip Therapy Vaseline TP Q2HR PRN Dry Lips Ceftriaxone Sodium 2 gm in 100 mls @ 200 mls/hr 03/01/21 10:00 03/03/21 10:44 Rocephin/Ns 2 Gm/100 Ml IV 03/05/21 10:29 200 mls/hr Q24H AMRITA Administration Protocol Lisinopril 10 mg 02/28/21 21:00 03/03/21 09:41 Lisinopril 10 Mg Tab PO 10 mg QDAY AMRITA Administration Metoclopramide HCl 10 mg 02/28/21 20:50 Metoclopramide 10 Mg/2 Ml Inj IV Q6H PRN Nausea And Vomiting Morphine Sulfate 2 mg 02/28/21 20:50 03/02/21 21:36 Morphine 2 Mg/1 Ml Inj IV 2 mg Q4H PRN Administration Pain, Moderate (4-6) Multi-Ingred Cream/Lotion/Oil/Oint 1 applic 02/28/21 16:05 Mineral Oil/Petrolatum, White Ophth Oint 3.5 Gm OU Q4HR PRN Dry Eye(s) Ondansetron HCl 4 mg 02/28/21 20:50 Ondansetron 4 Mg/2 Ml Inj IV Q8H PRN Nausea And Vomiting Potassium Chloride 20 meq 03/03/21 10:00 03/03/21 09:41 Potassium Chloride Er 20 Meq Tab PO 20 meq QDAY AMRITA Administration Prednisone 20 mg 03/02/21 10:00 03/03/21 09:40 Prednisone 20 Mg Tab PO 03/04/21 10:01 20 mg QDAY AMRITA Administration Sodium Chloride 10 ml 02/28/21 22:00 03/03/21 21:32 Sodium Chloride 0.9% 10 Ml Flush Syringe IV 10 ml BID AMRITA Administration Sodium Chloride 10 ml 02/28/21 20:50 Sodium Chloride 0.9% 10 Ml Flush Syringe IV PRN PRN LINE FLUSH Spironolactone 25 mg 03/01/21 10:00 03/03/21 09:41 Spironolactone 25 Mg Tab PO 25 mg QDAY AMRITA Administration Nutrition/Malnutrition Assess - Dietary Evaluation Nutrition/Malnutrition Findings: Nutrition Notes Start: 03/01/21 13:28 Freq: Status: Active Protocol: Document 03/03/21 12:05 ASHLEIGH (Rec: 03/03/21 12:09 ASHLEIGH [id number]) Nutrition Notes Initial or Follow up Reassessment Current Diagnosis Acute Kidney Injury,COPD, Hypertension,Heart Failure, Respiratory Failure Current Diet Cardiac, Consistent CHO Labs/Tests POC BG 211 Pertinent Medications Bumex K-Dur 20 mEq Height 5 ft 10 in Weight 104.8 kg [place] Body Weight (kg) 75.45 BMI 33.1 Weight Status Obese Subjective/Other Information Pt extubated and eating meals. 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 Pt states he is currenly not eating well but upon further questioning, he is eating 100% of meals. Percent of energy/protein needs met: 100%/100% Burn Absent Trauma Absent Current % PO Good (75-100%) Minimum of two criteria No physical signs of malnutrition #1 Nutrition Diagnosis Inadequate oral intake As Evidenced by Signs and Symptoms pt eating 100% of meals Diagnosis Progress(for reassessment Improved documentation) Is patient on ventilator? No Is Patient Ambulatory and/or Out of Bed Yes REE-([place]-St. Jeor-ambulatory/OOB) [ 2540.525 [id number]] Kcal/Kg value to use for calculation 18 Approximate Energy Requirements Using 1886 kcal/Kg Calculation Used for Recommendations Kcal/kg Additional Notes protein needs: (0.8-1g/kg AdjBW: 90kg) 72-90g fluid needs: 1500 - 1900 ml or per MD Nutrition Intervention Change Diet Order: Continue Nutrition Support: d/c Goal #1 Continue to meet at least 75% of kcal and protein needs via PO Anticipated Discharge Needs: Cardiac, consistent CHO Follow-Up By: 03/09/21 Additional Comments FU for stable intakes
[2021-03-04] MEDS: carvediloL 25 MG TAB PO SCH ×2 (09:48→22:36)
[2021-03-04] MEDS: FAMOTIDINE 20 MG TAB PO SCH ×2 (09:48→22:36)
[2021-03-04] MEDS: SPIRONOLACTONE 25 MG TAB PO SCH (09:48)
[2021-03-04] MEDS: HEPARIN 5,000 UNIT/1 ML VIAL SUB-Q SCH ×2 (09:48→22:36)
[2021-03-04] MEDS: LISINOPRIL 10 MG TAB PO SCH (09:48)
[2021-03-04] MEDS: ASPIRIN 81 MG TAB CHEW PO SCH (09:48)
[2021-03-04] MEDS: POTASSIUM CHLORIDE ER 20 MEQ TAB PO SCH (09:48)
[2021-03-04] MEDS: predniSONE 20 MG TAB PO SCH (09:48)
[2021-03-04] MEDS: cefTRIAXone/NS 2 GM/100 ML 2 GM/100 ML BAG IV SCH (09:49)
--- NOTE | 2021-03-04 10:30 | Progress Note ---
Assessment and Plan Acute on chronic HFrEF in setting of severe nonischemic dilated cardiomyopathy * [facility] 11/2020 shows normal coronary arteries * Echocardiogram reviewed (11/21/2020): LVEF is 20 to 25%. LV is moderately dilated. Mild LVH. Severe global hypokinesis of LV. Right ventricle is moderately dilated and mildly hypokinetic. LA is moderately dilated. RA is mildly dilated. Bioprosthetic aortic valve is present. Mild MR. Moderate TR. RVSP is 43 mmHg, mild pulmonary hypertension. * GDMT. No ACEI/ARB in setting of LILIBETH. * Continue diuresis with Bumex, Aldactone. Replete potassium as needed. * Patient has previously been considered for LifeVest placement. But patient ultimately refused placement. Patient has significant history of medical non compliance and abandonment of care AGAINST MEDICAL ADVICE. Bioprosthetic aortic valve * Aspirin 81 mg daily recommended NSTEMI suspect type II in setting of LILIEBTH * Troponin is elevated, subacute and nonspecific, trending downwards. Continue to trend CE's. In setting of normal coronary arteries as confirmed in [facility] performed on November 2020. Heparin gtt is not recommended. DVT prophylaxis * Heparin SQ Bilateral lower extremity edema is improved to 2+. Anticipate 1-2 more days of IV diuresis. We will follow Patient should follow-up with Dr Lopez, [facility] heart specialists within 1 to 2 weeks of discharge (pending scheduling). #[id number] This patient was seen in conjunction with Dr Lopez who agrees with assessment plan of care - Patient Problems (1) Acute respiratory failure with hypoxia Current Visit: Yes Status: Acute Plan to address problem: (2) Acute on chronic HFrEF (heart failure with reduced ejection fraction) Current Visit: No Status: Acute Plan to address problem: (3) COPD (chronic obstructive pulmonary disease) Current Visit: Yes Status: Chronic Qualifiers: Emphysema type: unspecified Plan to address problem: (4) Hypertension Current Visit: Yes Status: Chronic Qualifiers: Hypertension type: primary hypertension Qualified Code(s): I10 - Essential (primary) hypertension Plan to address problem: (5) Elevated troponin Current Visit: Yes Status: Acute Plan to address problem: (6) LILIBETH (acute kidney injury) Current Visit: Yes Status: Acute Plan to address problem: (7) DVT prophylaxis Current Visit: Yes Status: Acute Plan to address problem: Subjective Date of service: 03/04/21 Principal diagnosis: Ac hypoxemic resp failure; PNA; Pulm edema; AE-CHF; NSTEMI; HTN; LILIBETH Interval history: Patient is resting comfortably in bed. No shortness of breath or chest pain overnight Telemetry reviewed: Sinus rhythm 75. Episode of 3 beat V. tach noted overnight Objective Last Vital Signs Temp 98.2 F 03/04/21 08:26 Pulse 79 03/04/21 08:26 Resp 17 03/04/21 08:26 BP 127/89 03/04/21 08:26 Pulse Ox 95 03/04/21 08:26 - Physical Examination General: No Apparent Distress HEENT: Positive: Normocephaly, Mucus Membranes Moist Neck: Positive: neck supple, trachea midline Cardiac: Positive: Reg Rate and Rhythm, S1/S2 Lungs: Positive: Normal Exam, Normal Breath Sounds Neuro: Positive: Grossly Intact Abdomen: Positive: Soft, Distended Skin: Negative: Rash, Wound Musculoskeletal: No Pain Extremities: Present: upper extr. pulses, lower extr. pulses, +2 Edema - Imaging and Cardiology EKG: report reviewed, image reviewed Echo: report reviewed Cardiac cath: report reviewed - Telemetry EKG Rhythm: Sinus Rhythm - EKG Sinus rhythms and dysrhythmias: sinus tachycardia - Allied health notes Allied health notes reviewed: nursing
[2021-03-04] MEDS: MORPHINE 2 MG/1 ML INJ IV PRN (17:30)
[2021-03-05] MEDS: BUMETANIDE 1 MG/4 ML INJ IV SCH (05:06)
[2021-03-05 06:24] LABS: Hematocrit 32.3 % (35.5-45.6); Hemoglobin 10.7 gm/dl (11.8-15.2); Mean Corpuscular HGB Conc 33 % (32-34); Mean Corpuscular Volume 98 fl (84-94); Platelet Count 181 K/mm3 (140-440); Red Blood Count 3.31 M/mm3 (3.65-5.03); Red Cell Distribution Width 18.3 % (13.2-15.2)
[2021-03-05 06:42] LABS: BUN/Creatinine Ratio 34; Blood Urea Nitrogen 27 mg/dL (9-20); Calcium 7.2 mg/dL (8.4-10.2); Hemolysis Index 241
[2021-03-05] MEDS: ARFORMOTEROL 15 MCG/2 ML NEBU IH SCH (07:24)
[2021-03-05] MEDS: BUDESONIDE 0.5 MG/2 ML NEBU IH SCH (07:24)
--- NOTE | 2021-03-05 08:53 | Progress Note ---
Hospitalist Physical - Constitutional Vitals: Temp Pulse Resp BP Pulse Ox 98.3 F 72 16 151/117 97 03/05/21 05:52 03/05/21 07:24 03/05/21 07:24 03/05/21 05:54 03/05/21 07:24 General appearance: Present: no acute distress, mild distress, well-nourished HEART Score - HEART Score Troponin: Troponin T 0.047 ng/mL (0.00-0.029) H 03/03/21 04:37 Results - Labs CBC & Chem 7: 03/05/21 04:20 03/05/21 04:20 Labs: Laboratory Last Values WBC 14.4 K/mm3 (4.5-11.0) H 03/05/21 04:20 RBC 3.31 M/mm3 (3.65-5.03) L 03/05/21 04:20 Hgb 10.7 gm/dl (11.8-15.2) L 03/05/21 04:20 Hct 32.3 % (35.5-45.6) L 03/05/21 04:20 MCV 98 fl (84-94) H 03/05/21 04:20 MCH 32 pg (28-32) 03/05/21 04:20 MCHC 33 % (32-34) 03/05/21 04:20 RDW 18.3 % (13.2-15.2) H 03/05/21 04:20 Plt Count 181 K/mm3 (140-440) 03/05/21 04:20 Add Manual Diff Complete 03/01/21 08:29 Total Counted 100 03/01/21 08:29 Seg Neutrophils % Ratoprinter 03/01/21 08:29 Seg Neuts % (Manual) 97.0 % (40.0-70.0) H 03/01/21 08:29 Band Neutrophils % 3.0 % 03/01/21 08:29 Lymphocytes % (Manual) 2.0 % (13.4-35.0) L 02/28/21 14:00 Monocytes % (Manual) 1.0 % (0.0-7.3) 02/28/21 14:00 Nucleated RBC % Not Reportable 03/01/21 08:29 Seg Neutrophils # Man 11.5 K/mm3 (1.8-7.7) H 03/01/21 08:29 Band Neutrophils # 0.4 K/mm3 03/01/21 08:29 Lymphocytes # (Manual) 0.0 K/mm3 (1.2-5.4) L 03/01/21 08:29 Abs React Lymphs (Man) 0.0 K/mm3 03/01/21 08:29 Monocytes # (Manual) 0.0 K/mm3 (0.0-0.8) 03/01/21 08:29 Eosinophils # (Manual) 0.0 K/mm3 (0.0-0.4) 03/01/21 08:29 Basophils # (Manual) 0.0 K/mm3 (0.0-0.1) 03/01/21 08:29 Metamyelocytes # 0.0 K/mm3 03/01/21 08:29 Myelocytes # 0.0 K/mm3 03/01/21 08:29 Promyelocytes # 39.5 K/mm3 03/01/21 08:29 Blast Cells # 0.0 K/mm3 03/01/21 08:29 WBC Morphology Not Reportable 03/01/21 08:29 Hypersegmented Neuts Not Reportable 03/01/21 08:29 Hyposegmented Neuts Not Reportable 03/01/21 08:29 Hypogranular Neuts Not Reportable 03/01/21 08:29 Smudge Cells Not Reportable 03/01/21 08:29 Toxic Granulation 1+ 03/01/21 08:29 Toxic Vacuolation Few 03/01/21 08:29 Dohle Bodies Not Reportable 03/01/21 08:29 Pelger-Huet Anomaly Not Reportable 03/01/21 08:29 Nadya Rods Not Reportable 03/01/21 08:29 Platelet Estimate Cons 03/01/21 08:29 Clumped Platelets Not Reportable 03/01/21 08:29 Plt Clumps, EDTA Not Reportable 03/01/21 08:29 Large Platelets Few 03/01/21 08:29 Giant Platelets Not Reportable 03/01/21 08:29 Platelet Satelliting Not Reportable 03/01/21 08:29 Plt Morphology Comment Not Reportable 03/01/21 08:29 RBC Morphology Not Reportable 03/01/21 08:29 Dimorphic RBCs Not Reportable 03/01/21 08:29 Polychromasia Not Reportable 03/01/21 08:29 Hypochromasia Not Reportable 03/01/21 08:29 Poikilocytosis Not Reportable 03/01/21 08:29 Anisocytosis Not Reportable 03/01/21 08:29 Microcytosis Not Reportable 03/01/21 08:29 Macrocytosis Not Reportable 03/01/21 08:29 Spherocytes Not Reportable 03/01/21 08:29 Pappenheimer Bodies Not Reportable 03/01/21 08:29 Sickle Cells Not Reportable 03/01/21 08:29 Target Cells 1+ 03/01/21 08:29 Tear Drop Cells Not Reportable 03/01/21 08:29 Ovalocytes 1+ 03/01/21 08:29 Helmet Cells Not Reportable 03/01/21 08:29 [place] Bodies Not Reportable 03/01/21 08:29 [place] Rings Not Reportable 03/01/21 08:29 Yan Cells 1+ 03/01/21 08:29 Bite Cells Not Reportable 03/01/21 08:29 Crenated Cell Not Reportable 03/01/21 08:29 Elliptocytes Not Reportable 03/01/21 08:29 Acanthocytes (Spur) Not Reportable 03/01/21 08:29 Rouleaux Not Reportable 03/01/21 08:29 Hemoglobin C Crystals Not Reportable 03/01/21 08:29 Schistocytes Not Reportable 03/01/21 08:29 Malaria parasites Not Reportable 03/01/21 08:29 Louie Bodies Not Reportable 03/01/21 08:29 Hem Pathologist Commnt No 03/01/21 08:29 PT 16.1 Sec. (12.2-14.9) H 02/28/21 14:00 INR 1.24 (0.87-1.13) H 02/28/21 14:00 ABG pH 7.419 (7.320-7.450) 03/02/21 09:03 POC ABG pCO2 41.6 mmHg (32.0-48.0) 03/02/21 09:03 POC ABG pO2 129.6 mmHg (83-108) H 03/02/21 09:03 POC ABG HCO3 26.3 03/02/21 09:03 ABG O2 Saturation 98.5 (0-100) 03/02/21 09:03 POC ABG Base Excess 1.7 03/02/21 09:03 ABG Hemoglobin 12.1 (12.0-17.5) 03/02/21 09:03 ABG Oxyhemoglobin 98.2 (94-98) H 03/02/21 09:03 ABG Methemoglobin 0.3 (0.0-1.5) 03/02/21 09:03 ABG Sodium 144.1 mmol/L (136.0-145.0) 03/02/21 09:03 ABG Potassium 3.2 mmol/L (3.40-4.50) L 03/02/21 09:03 ABG Chloride 112.0 mmol/L (98-107) H 03/02/21 09:03 ABG Glucose 101 mg/dL (65-95) H 03/02/21 09:03 Carboxyhemoglobin 0 (0.5-1.5) L 03/02/21 09:03 FiO2 % 40.0 03/02/21 09:03 Sodium 143 mmol/L (137-145) 03/05/21 04:20 Potassium 3.8 mmol/L (3.6-5.0) 03/05/21 04:20 Chloride 106.8 mmol/L (98-107) 03/05/21 04:20 Carbon Dioxide 23 mmol/L (22-30) 03/05/21 04:20 Anion Gap 17 mmol/L 03/05/21 04:20 BUN 27 mg/dL (9-20) H 03/05/21 04:20 Creatinine 0.8 mg/dL (0.8-1.3) 03/05/21 04:20 Estimated GFR > 60 ml/min 03/05/21 04:20 BUN/Creatinine Ratio 34 % 03/05/21 04:20 Glucose 130 mg/dL (75-100) H 03/05/21 04:20 POC Glucose 130 mg/dL (70-105) H 03/04/21 12:11 Hemoglobin A1c 6.4 % (4-6) H 03/01/21 08:29 Lactic Acid 1.40 mmol/L (0.7-2.0) 02/28/21 16:07 Calcium 7.2 mg/dL (8.4-10.2) L 03/05/21 04:20 Magnesium 2.60 mg/dL (1.7-2.3) H 03/02/21 06:30 Total Bilirubin 0.70 mg/dL (0.1-1.2) 03/01/21 08:29 AST 58 units/L (5-40) H 03/01/21 08:29 ALT 74 units/L (7-56) H 03/01/21 08:29 Alkaline Phosphatase 174 units/L (35-129) H 03/01/21 08:29 Total Creatine Kinase 33 units/L (55-170) L 03/01/21 21:13 CK-MB (CK-2) 2.2 ng/mL (0.0-4.0) 03/01/21 21:13 CK-MB (CK-2) Rel Index 6.6 (0-4) H 03/01/21 21:13 Troponin T 0.047 ng/mL (0.00-0.029) H 03/03/21 04:37 NT-Pro-B Natriuret Pep > 68560 pg/mL (0-450) H 02/28/21 14:00 Total Protein 5.0 g/dL (6.3-8.2) L D 03/01/21 08:29 Albumin 2.9 g/dL (3.9-5) L 03/01/21 08:29 Albumin/Globulin Ratio 1.4 % 03/01/21 08:29 Triglycerides 179 mg/dL (2-149) H 02/28/21 19:04 Cholesterol 132 mg/dL (50-199) 02/28/21 19:04 LDL Cholesterol Direct 59 mg/dL (50-130) 02/28/21 19:04 HDL Cholesterol 32 mg/dL (40-59) L 02/28/21 19:04 Cholesterol/HDL Ratio 4.12 % 02/28/21 19:04 Arterial Blood Glucose 101 mg/dL (65-95) H 03/02/21 09:03 Arterial Blood Ionized Calcium 4.5 mg/dL (4.6-5.3) L 03/02/21 09:03 Urine Color Dara (Yellow) 02/28/21 17:59 Urine Turbidity Cloudy (Clear) 02/28/21 17:59 Urine pH 5.0 (5.0-7.0) 02/28/21 17:59 Ur Specific [place] 1.017 (1.003-1.030) 02/28/21 17:59 Urine Protein >500 mg/dL (Negative) 02/28/21 17:59 Urine Glucose (UA) Neg mg/dL (Negative) 02/28/21 17:59 Urine Ketones Neg mg/dL (Negative) 02/28/21 17:59 Urine Blood Sm (Negative) 02/28/21 17:59 Urine Nitrite Neg (Negative) 02/28/21 17:59 Urine Bilirubin Neg (Negative) 02/28/21 17:59 Urine Urobilinogen < 2.0 mg/dL (<2.0) 02/28/21 17:59 Ur Leukocyte Esterase Neg (Negative) 02/28/21 17:59 Urine WBC (Auto) 6.0 /HPF (0.0-6.0) 02/28/21 17:59 Urine RBC (Auto) 5.0 /HPF (0.0-6.0) 02/28/21 17:59 U Epithel Cells (Auto) 2.0 /HPF (0-13.0) 02/28/21 17:59 Urine Bacteria (Auto) 1+ /HPF (Negative) 02/28/21 17:59 Urine Mucus Few /HPF 02/28/21 17:59 Urine Yeast (Budding) 2+ /HPF 02/28/21 17:59 Microbiology: Microbiology 02/28/21 14:00 Peripheral/Venous Blood Culture - Preliminary NO GROWTH AFTER 4 DAYS 02/28/21 14:00 Peripheral/Venous Blood Culture - Preliminary NO GROWTH AFTER 4 DAYS 02/28/21 16:25 Tracheal Aspirate Sputum Culture - Final Hyatt/IV: Voiding Method Toilet Active Medications - Current Medications Current Medications: Generic Name Dose Route Start Last Admin Trade Name Freq PRN Reason Stop Dose Admin Acetaminophen 650 mg 02/28/21 20:50 Acetaminophen 325 Mg Tab PO Q4H PRN Pain MILD(1-3)/Fever >100.5/YU Albuterol 2.5 mg 03/01/21 12:53 Albuterol 2.5 Mg/3 Ml Nebu IH Q4HRT PRN Shortness Of Breath Arformoterol Tartrate 15 mcg 03/01/21 20:00 03/05/21 07:24 Arformoterol 15 Mcg/2 Ml Nebu IH 15 mcg Q12HRT AMRITA Administration Aspirin 81 mg 03/01/21 10:00 03/04/21 09:48 Aspirin 81 Mg Tab Chew PO 81 mg QDAY AMRITA Administration Atorvastatin Calcium 40 mg 03/01/21 22:00 03/04/21 22:36 Atorvastatin 40 Mg Tab PO 40 mg QHS AMRITA Administration Budesonide 0.5 mg 03/01/21 20:00 03/05/21 07:24 Budesonide 0.5 Mg/2 Ml Nebu IH 0.5 mg Q12HRT AMRITA Administration Bumetanide 1 mg 03/02/21 18:00 03/05/21 05:06 Bumetanide 1 Mg/4 Ml Inj IV 1 mg BID@0600,1800 AMRITA Administration Carvedilol 25 mg 02/28/21 22:00 03/04/21 22:36 Carvedilol 25 Mg Tab PO 25 mg Q12HR AMRITA Administration Famotidine 20 mg 03/02/21 10:00 03/04/21 22:36 Famotidine 20 Mg Tab PO 20 mg BID AMRITA Administration Heparin Sodium (Porcine) 5,000 unit 02/28/21 22:00 03/04/21 22:36 Heparin 5,000 Unit/1 Ml Vial SUB-Q 5,000 unit Q12HR AMRITA Administration Hydromorphone HCl 0.5 mg 02/28/21 20:50 Hydromorphone 1 Mg/1 Ml Inj IV Q3H PRN Pain , Severe (7-10) Hydrophilic Ointment 1 applic 02/28/21 16:05 Lip Therapy Vaseline TP Q2HR PRN Dry Lips Ceftriaxone Sodium 2 gm in 100 mls @ 200 mls/hr 03/01/21 10:00 03/04/21 09:49 Rocephin/Ns 2 Gm/100 Ml IV 03/05/21 10:29 200 mls/hr Q24H AMRITA Administration Protocol Levofloxacin 500 mg 03/05/21 10:00 Levofloxacin 500 Mg Tab PO Q24HR [facility] Protocol Lisinopril 20 mg 03/05/21 08:37 Lisinopril 10 Mg Tab PO QDAY [facility] Metoclopramide HCl 10 mg 02/28/21 20:50 Metoclopramide 10 Mg/2 Ml Inj IV Q6H PRN Nausea And Vomiting Morphine Sulfate 2 mg 02/28/21 20:50 03/04/21 17:30 Morphine 2 Mg/1 Ml Inj IV 2 mg Q4H PRN Administration Pain, Moderate (4-6) Multi-Ingred Cream/Lotion/Oil/Oint 1 applic 02/28/21 16:05 Mineral Oil/Petrolatum, White Ophth Oint 3.5 Gm OU Q4HR PRN Dry Eye(s) Ondansetron HCl 4 mg 02/28/21 20:50 Ondansetron 4 Mg/2 Ml Inj IV Q8H PRN Nausea And Vomiting Potassium Chloride 20 meq 03/03/21 10:00 03/04/21 09:48 Potassium Chloride Er 20 Meq Tab PO 20 meq QDAY AMRITA Administration Sodium Chloride 10 ml 02/28/21 22:00 03/04/21 22:36 Sodium Chloride 0.9% 10 Ml Flush Syringe IV 10 ml BID AMRITA Administration Sodium Chloride 10 ml 02/28/21 20:50 Sodium Chloride 0.9% 10 Ml Flush Syringe IV PRN PRN LINE FLUSH Spironolactone 25 mg 03/01/21 10:00 03/04/21 09:48 Spironolactone 25 Mg Tab PO 25 mg QDAY AMRITA Administration Nutrition/Malnutrition Assess - Dietary Evaluation Nutrition/Malnutrition Findings: Nutrition Notes Start: 03/01/21 13:28 Freq: Status: Active Protocol: Document 03/03/21 12:05 (Rec: 03/03/21 12:09 [email or web address]) Nutrition Notes Initial or Follow up Reassessment Current Diagnosis Acute Kidney Injury,COPD, Hypertension,Heart Failure, Respiratory Failure Current Diet Cardiac, Consistent CHO Labs/Tests POC BG 211 Pertinent Medications Bumex K-Dur 20 mEq Height 5 ft 10 in Weight 104.8 kg [place] Body Weight (kg) 75.45 BMI 33.1 Weight Status Obese Subjective/Other Information Pt extubated and eating meals. He reports decreased appetite [employer]ER. Pt states he is currenly not eating well but upon further questioning, he is eating 100% of meals. Percent of energy/protein needs met: 100%/100% Burn Absent Trauma Absent Current % PO Good (75-100%) Minimum of two criteria No physical signs of malnutrition #1 Nutrition Diagnosis Inadequate oral intake As Evidenced by Signs and Symptoms pt eating 100% of meals Diagnosis Progress(for reassessment Improved documentation) Is patient on ventilator? No Is Patient Ambulatory and/or Out of Bed Yes REE-(Stutsman-St. Jeor-ambulatory/OOB) [ 2540.525 NUTR.MSJOOB] Kcal/Kg value to use for calculation 18 Approximate Energy Requirements Using 1886 kcal/Kg Calculation Used for Recommendations Kcal/kg Additional Notes protein needs: (0.8-1g/kg AdjBW: 90kg) 72-90g fluid needs: 1500 - 1900 ml or per MD Nutrition Intervention Change Diet Order: Continue Nutrition Support: d/c Goal #1 Continue to meet at least 75% of kcal and protein needs via PO Anticipated Discharge Needs: Cardiac, consistent CHO Follow-Up By: 03/09/21 Additional Comments FU for stable intakes
[2021-03-05] MEDS: SPIRONOLACTONE 25 MG TAB PO SCH (09:10)
[2021-03-05] MEDS: FAMOTIDINE 20 MG TAB PO SCH (09:10)
[2021-03-05] MEDS: ASPIRIN 81 MG TAB CHEW PO SCH (09:10)
[2021-03-05] MEDS: HEPARIN 5,000 UNIT/1 ML VIAL SUB-Q SCH (09:11)
[2021-03-05] MEDS: carvediloL 25 MG TAB PO SCH (09:11)
[2021-03-05] MEDS: POTASSIUM CHLORIDE ER 20 MEQ TAB PO SCH (09:11)
[2021-03-05] MEDS: cefTRIAXone/NS 2 GM/100 ML 2 GM/100 ML BAG IV SCH (09:12)
[2021-03-05] MEDS ORDERED: LISINOPRIL 20 MG TAB PO SCH (10:00)
[2021-03-05] MEDS ORDERED: levoFLOXacin 500 MG TAB PO SCH (10:00)
--- NOTE | 2021-03-05 11:02 | Discharge Summary ---
Providers - Providers Date of Admission: 02/28/21 19:22 Attending physician: DEMETRA PEGUERO MD 02/28/21 16:05 Consult to Dietitian/Nutrition [CONS] Routine Physician Instructions: Reason For Exam: Reason for Consult: Evaluate nutritional intake 02/28/21 16:29 Consult to Physician [CONS] Routine Comment: Consulting Provider: SHELDON VILLAFUERTE Physician Instructions: Reason For Exam: ICU Management 02/28/21 19:15 Consult to Cardiology [CONS] Routine Consulting Provider: KELLY CRUZ Reason For Exam: CHF, Elevated troponin 03/04/21 10:29 Consult to Wound/ET Nurse [CONS] Routine Reason For Exam: wound eval 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 He has a history of CHF, COPD, hypertension, previous NSTEMI but normal coronaries as of a left heart catheterization in November of this year. He has a former smoker and has a previous history of alcohol abuse. Patient follows with Dr. Grant at [facility] cardiology. EMS found the patient to be hypoxic in the low 80s and the patient was breathing very fast. He was placed on 4 L oxygen via nasal cannula, which was then increased to 6 L upon presentation here. The patient was found to have a low-grade fever, so along with his tachycardia, a code sepsis was initiated. Patient says that he has increased shortness of breath with exertion or with laying flat. He denies any chest pain, cough, nausea, vomiting, abdominal pain. No recent travel or sick contacts at home. No known exposure to anyone with COVID-19. 03/01/2021 Patient intubated Weaning in progress Echocardiogram shows ejection fraction of 25 to 30% 03/02/2021 Patient could be weaned off Patient extubated Comfortable on 2 L nasal cannula oxygen Patient to be transferred to medical floor with remote telemetry 03/03: Continue supportive care, Cardiology input noted. monitor and replace electrolytes. 03/04: Discussed with health care coordinator today we will try to diurese with Bumex for 1 more day. Anticipate discharge in a.m. Otherwise continue supportive care 03/05: Discussed extensively with the patient about the rising Leukocytosis and the back wound. I told him that this is concerning for possible leukocytosis he insists that he wants to leave today. He states that he does not have any infection and that he knows when he has an infection. I recommended that he follow-up at the wound care clinic for further evaluation I discussed the risk of sepsis and septicemia setting and he verbalized understanding. We will proceed with discharging him on his own request as AGAINST MEDICAL ADVICE I had recommended that he stays and if the WBC is coming down patient can be discharged in a.m. but again he refused. (1) Acute respiratory failure with hypoxia Current Visit: Yes Status: Acute Plan to address problem: Patient sats were very low at the time of admission to the emergency room BiPAP did not improve Patient had to be intubated and patient is on vent management Game Technician consult requested Patient could be extubated today After extubation patient comfortable and walking around the room Patient to be transferred to regular medical floor (2) Acute on chronic HFrEF (heart failure with reduced ejection fraction) Current Visit: No Status: Acute Plan to address problem: IV Lasix for now Daily intake and output Daily weights Echocardiogram for ejection fraction Cardiology consult appreciated LVEF 25 to 30% (3) COPD (chronic obstructive pulmonary disease) Current Visit: Yes Status: Chronic Qualifiers: Emphysema type: unspecified Plan to address problem: Continue duo nebs and steroids (4) Hypertension Current Visit: Yes Status: Chronic Qualifiers: Hypertension type: primary hypertension Qualified Code(s): I10 - Essential (primary) hypertension Plan to address problem: Continue antihypertensives and adjust medications (5) Elevated troponin Current Visit: Yes Status: Acute Plan to address problem: May be a troponin leak We will get a CK and CK-MBs (6) LILIBETH (acute kidney injury)Secondary to vasomotor nephropathy Current Visit: Yes Status: Acute Plan to address problem: No IV fluids at this time because of the severe CHF Disposition: DC/TX-06 HOME [facility] Final Discharge Diagnosis (Prints w/discharge instructions): Acute systolic congestive heart failure Time spent for discharge: 35 minutes Core Measure Documentation - Palliative Care Palliative Care/ Comfort Measures: Not Applicable - Core Measures Any of the following diagnoses?: heart failure - Heart Failure Discharge Requirements JUSTO/ARB for LVSD if EF <40%: Yes Beta vinicius at discharge: Yes Exam - Physical Exam Narrative exam: General appearance: Present: no acute distress, well-nourished - EENT Eyes: PERRL, EOM intact ENT: hearing intact, clear oral mucosa Ears: bilateral: normal - Neck Neck: supple, normal ROM - Respiratory Respiratory effort: normal Respiratory: bilateral: CTA - Breasts Breasts: normal - Cardiovascular Heart rate: 78 Rhythm: regular Heart Sounds: Present: S1 & S2. Absent: gallop, rub Extremities: pulses intact, No edema, normal color, Full ROM - Gastrointestinal General gastrointestinal: Present: soft, non-tender, non-distended, normal bowel sounds - Genitourinary Male genitourinary: normal - Integumentary Integumentary: Bilateral pitting edema, sacral wound noted dressing in place. - Musculoskeletal Musculoskeletal: 1, strength equal bilaterally - Neurologic Neurologic: moves all extremities - Psychiatric Psychiatric: memory intact, appropriate mood/affect, intact judgment & insight - Constitutional Vitals: Temp Pulse Resp BP Pulse Ox 98.0 F 69 18 138/99 94 03/05/21 08:40 03/05/21 08:40 03/05/21 08:40 03/05/21 09:11 03/05/21 08:40 Plan Activity: advance as tolerated, fall precautions Diet: low salt Wound: per wound nurse instructions Special Instructions: restrict fluid intake to (1000cc/day), record daily weights, record daily BP diary Follow up with: PRIMARY MD CARLOS [Primary Care Provider] - 7 Days AMNA GRANT MD [Staff Physician] - 7 Days MALU MCKAY MD [Staff Physician] - 7 Days [facility] [Outside] - 7 Days Prescriptions: AtorvaSTATin [Lipitor] 40 mg PO QHS #30 tablet Fluticasone/Salmeterol [Advair Diskus 250-50 mcg] 1 puff IH BID #1 disk.w.dev Bumetanide [Bumex 1 mg tab] 1 mg PO 0600,1800 #60 tablet Potassium Chloride [K-Dur] 20 meq PO QDAY #10 tablet levoFLOXacin [Levaquin TAB] 500 mg PO Q24HR #7 tablet Famotidine [Pepcid] 20 mg PO BID #60 tablet Petrolatum,White [Vaseline Lip Therapy] 1 applic TP Q2HR PRN #1 tube PRN Reason: Dry Lips
[2021-03-05 11:34] VITALS: BP 133/90
--- NOTE | 2021-03-05 11:56 | Progress Note ---
Assessment and Plan Acute on chronic HFrEF in setting of severe nonischemic dilated cardiomyopathy * [facility] 11/2020 shows normal coronary arteries * Echocardiogram reviewed (11/21/2020): LVEF is 20 to 25%. LV is moderately dilated. Mild LVH. Severe global hypokinesis of LV. Right ventricle is moderately dilated and mildly hypokinetic. LA is moderately dilated. RA is mildly dilated. Bioprosthetic aortic valve is present. Mild MR. Moderate TR. RVSP is 43 mmHg, mild pulmonary hypertension. * GDMT. No ACEI/ARB in setting of LILIBETH. * Optimize volume control: Discontinue Bumex IV, resume home medication Bumex 1 mg p.o. twice daily, continue Aldactone 25 mg daily * Patient has previously been considered for LifeVest placement. But patient ultimately refused placement. Patient has significant history of medical noncompliance and abandonment of care AGAINST MEDICAL ADVICE. Bioprosthetic aortic valve * Aspirin 81 mg daily recommended NSTEMI suspect type II in setting of LILIBETH * Troponin is elevated, subacute and nonspecific, trending downwards. Continue to trend CE's. In setting of normal coronary arteries as confirmed in [facility] performed on November 2020. Heparin gtt is not recommended. DVT prophylaxis * Heparin SQ Patient is currently chest pain free. Bilateral lower extremity edema is improved to baseline of 1/2+. Patient may discharge from cardiology standpoint. Patient should follow-up with Dr Lopez, [facility] heart specialists within 1 to 2 weeks of discharge (pending scheduling). #[phone] This patient was seen in conjunction with Dr Lopez who agrees with assessment plan of care - Patient Problems (1) Acute respiratory failure with hypoxia Current Visit: Yes Status: Acute Plan to address problem: (2) Acute on chronic HFrEF (heart failure with reduced ejection fraction) Current Visit: No Status: Acute Plan to address problem: (3) COPD (chronic obstructive pulmonary disease) Current Visit: Yes Status: Chronic Qualifiers: Emphysema type: unspecified Plan to address problem: (4) Hypertension Current Visit: Yes Status: Chronic Qualifiers: Hypertension type: primary hypertension Qualified Code(s): I10 - Essential (primary) hypertension Plan to address problem: (5) Elevated troponin Current Visit: Yes Status: Acute Plan to address problem: (6) LILIBETH (acute kidney injury) Current Visit: Yes Status: Acute Plan to address problem: (7) DVT prophylaxis Current Visit: Yes Status: Acute Plan to address problem: Subjective Date of service: 03/05/21 Principal diagnosis: Ac hypoxemic resp failure; PNA; Pulm edema; AE-CHF; NSTEMI; HTN; LILIBETH Interval history: Patient is resting comfortably in bed. No shortness of breath or chest pain overnight Telemetry reviewed: Sinus rhythm 77. No events Objective Vital Signs Temp Pulse Pulse Resp Resp BP BP 03/05/21 11:19 97.8 F 53 L 18 133/90 03/05/21 10:00 18 03/05/21 09:11 138/99 03/05/21 08:40 98.0 F 69 18 138/99 03/05/21 07:24 72 16 03/05/21 05:54 151/117 03/05/21 05:52 98.3 F 70 20 160/124 03/05/21 04:00 68 03/05/21 00:08 98.2 F 72 19 134/97 03/04/21 23:55 73 03/04/21 22:36 75 132/87 03/04/21 20:39 98.5 F 75 18 132/87 03/04/21 20:00 73 03/04/21 19:51 76 18 03/04/21 16:32 98.1 F 71 14 135/97 Pulse Ox 03/05/21 11:19 94 03/05/21 10:00 03/05/21 09:11 03/05/21 08:40 94 03/05/21 07:24 97 03/05/21 05:54 03/05/21 05:52 96 03/05/21 04:00 03/05/21 00:08 96 03/04/21 23:55 03/04/21 22:36 03/04/21 20:39 96 03/04/21 20:00 03/04/21 19:51 96 03/04/21 16:32 92 - Physical Examination General: No Apparent Distress HEENT: Positive: Normocephaly, Mucus Membranes Moist Neck: Positive: neck supple, trachea midline Cardiac: Positive: Reg Rate and Rhythm, S1/S2 Lungs: Positive: Normal Exam, Normal Breath Sounds Neuro: Positive: Grossly Intact Abdomen: Positive: Soft, Distended Skin: Negative: Rash, Wound Musculoskeletal: No Pain Extremities: Present: upper extr. pulses, lower extr. pulses, +2 Edema - Labs and Meds CBC 03/05/21 Range/Units 04:20 WBC 14.4 H (4.5-11.0) K/mm3 RBC 3.31 L (3.65-5.03) M/mm3 Hgb 10.7 L (11.8-15.2) gm/dl Hct 32.3 L (35.5-45.6) % Plt Count 181 (140-440) K/mm3 Comprehensive Metabolic Panel 03/05/21 Range/Units 04:20 Sodium 143 (137-145) mmol/L Potassium 3.8 (3.6-5.0) mmol/L Chloride 106.8 (98-107) mmol/L Carbon Dioxide 23 (22-30) mmol/L BUN 27 H (9-20) mg/dL Creatinine 0.8 (0.8-1.3) mg/dL Glucose 130 H (75-100) mg/dL Calcium 7.2 L (8.4-10.2) mg/dL - Imaging and Cardiology EKG: report reviewed, image reviewed Echo: report reviewed Cardiac cath: report reviewed - Telemetry EKG Rhythm: Sinus Rhythm - EKG Sinus rhythms and dysrhythmias: sinus tachycardia - Allied health notes Allied health notes reviewed: nursing
[2021-03-05] MEDS ORDERED: BUMETANIDE 1 MG TAB PO SCH (18:00)
== END 2021-03-05 15:38 | disposition left against medical advice (07) | DRG 280 ==
LOC: ED 13:22 → CC1 19:22 → 4A 03-02 20:53
PROVIDERS: ADMIT Internal Medicine; ATTEND Internal Medicine
PROC: 0BH17EZ Insertion of Endotracheal Airway into Trachea, Via Natural or Artificial Opening (ICD-10-PCS; principal; 2021-02-28)
PROC: 5A1945Z Respiratory Ventilation, 24-96 Consecutive Hours (ICD-10-PCS; 2021-02-28)
PROC: 4A033R1 Measurement of Arterial Saturation, Peripheral, Percutaneous Approach (ICD-10-PCS; 2021-02-28)
PROC: 5A09357 Assistance with Respiratory Ventilation, Less than 24 Consecutive Hours, Continuous Positive Airway Pressure (ICD-10-PCS; 2021-03-02)
PROC: 0BP1XDZ Removal of Intraluminal Device from Trachea, External Approach (ICD-10-PCS; 2021-03-02)
DX: I21.4 Non-ST elevation (NSTEMI) myocardial infarction (principal); J96.01 Acute respiratory failure with hypoxia; I50.23 Acute on chronic systolic (congestive) heart failure; N17.0 Acute kidney failure with tubular necrosis; J18.9 Pneumonia, unspecified organism; I42.8 Other cardiomyopathies; E87.2 Acidosis; J44.0 Chronic obstructive pulmonary disease with (acute) lower respiratory infection; Z53.29 Procedure and treatment not carried out because of patient's decision for other reasons; I25.10 Atherosclerotic heart disease of native coronary artery without angina pectoris; I11.0 Hypertensive heart disease with heart failure; R13.12 Dysphagia, oropharyngeal phase; K21.9 Gastro-esophageal reflux disease without esophagitis; M19.90 Unspecified osteoarthritis, unspecified site; E66.9 Obesity, unspecified; I25.2 Old myocardial infarction; Z87.891 Personal history of nicotine dependence; Z79.899 Other long term (current) drug therapy; Z91.14 Patient's other noncompliance with medication regimen; Z68.33 Body mass index [BMI] 33.0-33.9, adult
CPT/HCPCS: 36415; 36600; 71045; 74018; 76604; 80048; 80053; 80061; 81001; 82140; 82550; 82553; 82805; 82962; 83036; 83735; 83880; 84132; 84484; 85007; 85025; 85027; 85610; 87040; 87070; 87205; 93005; 93308; 93321; 93325; 94002; 94003; 94640; 96365; 96375; G0378; A9270-GY; J0456; J0461; J0696; J1644; J1940; J2060; J2250; J2270; J2930; J3010; J7512